=== PATIENT | male | born 1965 | race Caucasian/White ===

== ENCOUNTER 2019-09-30 20:00 | Outpatient (CLI) | payer OTHER, SELFPAY | END 2019-09-30 20:01 | disposition home or self-care (01) | LOC: SLEEP 10-01 09:41 | PROVIDERS: Family Provider Family Medicine; PCP Family Medicine; Visit Provider Family Medicine | DX: G47.33 Obstructive sleep apnea (adult) (pediatric) (principal) | CPT/HCPCS: 95810; 95811 ==

== ENCOUNTER 2019-10-16 21:03 | Inpatient (IN) | payer OTHER, SELFPAY ==
[2019-10-16 21:08] VITALS: BP 153/103; PULSE 73; RESP 22; TEMP 37.4; O2SAT 94; BMI 31.7
--- NOTE | 2019-10-16 21:11 | ED_ITS ---
Entered by Lita Sampson, acting as scribe for Wilmer Colin DO Oct 16, 2019 21:03 HPI - SOB/Dyspnea General: Chief Complaint: Shortness of Breath/Dyspnea Stated Complaint: syncope/sob Time Seen by Provider: 10/16/19 21:07 Source: patient Mode of arrival: ambulatory Limitations: no limitations History of Present Illness: HPI Narrative: 54 yo m came to the er by pov for sob and syncope episode. Onset was today. Pt states that he has not been breathing good and is unable to walk 15-20 ft w/o getting out of breath. MD elicited complaint: shortness of breath Onset (ago): day(s) (today) Timing: constant Severity: mild Associated symptoms: Reports fever(s) and syncope; Deny abdominal pain, dizziness, nausea or vomiting Related Data: Home oxygen amount: none Review of Systems Const: Reports: fever; Denies: chills Eyes: Denies: change in vision or blurry vision ENMT: Reports: post nasal drip; Denies: painful swallowing, swelling of lips/tongue, Change in hearing, nose bleeds or facial/sinus pain Card: Reports: syncope Resp: Reports: shortness of breath and non-productive cough; Denies: productive cough or wheezing GI: Denies: abdominal pain, nausea, vomiting, rectal pain, blood in stool or black tarry stool : Denies: difficulty urinating, painful urination, urinary frequency, urinary urgency or blood in urine Musc: Denies: redness or joint warmth Skin/Breast: Denies: rash, itching or redness Neuro: Denies: headache, dizziness, vertigo, confusion or seizure-like activity Psych: Denies: anxiety, visual hallucinations or auditory hallucinations PFSH ED PFSH: Statuses (acute, chronic, etc) shown below reflect problem list status as previously entered and may not be historically accurate Medical History (Updated 10/17/19 @ 00:42 by Claudy Herbert MD) Asthma (Acute) Chronic steroid use (Acute) Major depressive disorder (Acute) Polymyalgia rheumatica (Acute) Surgical History (Updated 10/17/19 @ 03:04 by Claudy Herbert MD) H/O hand surgery (Acute) H/O knee surgery (Acute) History of appendectomy (Acute) Family History (Updated 10/17/19 @ 00:43 by Claudy Herbert MD) Denies family history of Diabetes Clotting disorder Dementia Chronic kidney disease (CKD) Social History (Updated 10/17/19 @ 00:42 by Claudy Herbert MD) Smoking and tobacco status: never smoked Alcohol intake: never Substance/Drug Use: never Household members: family Physical Exam Const: GENERAL APPEARANCE: well developed ORIENTATION/CONSCIOUSNESS: Yes oriented to person, Yes oriented to place and Yes oriented to time HENMT: COMMON NORMALS: normocephalic, external ears normal and external nose normal HEAD & SCALP: normocephalic; no scalp tenderness FACE & SINUS: normal facial exam NOSE: external nose normal and no nasal discharge EXTERNAL EAR: Yes external ears normal MOUTH: tongue normal TEETH & GINGIVA: no abnormal tooth and associated gingiva THROAT: posterior oropharynx normal; no peritonsillar mass Eye: COMMON NORMALS: PERRL, EOMs intact bilaterally and conjunctivae normal EYELID: eyelids normal CONJUNCTIVA: Yes conjunctivae normal PUPIL: Yes PERRL Neck/C-Spine: COMMON NORMALS: full ROM GENERAL: No tracheal deviation CERVICAL SPINE: Yes normal cervical lordosis and No cervical spine tenderness Chest: COMMONS NORMALS: inspection of chest normal CHEST: No tenderness Resp: COMMON NORMALS: clear to auscultation bilaterally EFFORT & INSPECTION: Yes tachypneic, Yes respiratory distress, No retractions, No uses accessory muscles and No tracheal deviation AUSCULTATION: clear to auscultation bilaterally, no rhonchi, no wheezes and diminished lung sounds Cardio: COMMON NORMALS: regular rate and regular rhythm RATE: regular rate RHYTHM: regular rhythm HEART SOUNDS: no murmurs PERIPHERAL PULSES: radial pulses present GI: INSPECTION: No abdominal distension AUSCULTATION: No hyperactive bowel sounds and No hypoactive bowel sounds PALPATION: No guarding and No rigid PERCUSSION: no dullness to percussion and no tympanic to percussion : COMMON NORMALS: Yes no CVA tenderness BLADDER/KIDNEY EXAM: Yes no CVA tenderness Back/Pelvis: COMMON NORMALS: no CVA tenderness Neuro: SENSORIUM/ORIENTATION: Yes oriented to person, Yes oriented to place and Yes oriented to time Psych: COMMON NORMALS: mental status grossly normal Skin: COMMON NORMALS: no rashes or lesions noted GENERAL SKIN EXAM: no rashes or lesions noted Course ED course: 54-year-old male with significant shortness of breath. Has had a nonproductive cough. He has a temperature here. He has been increasingly short of breath, and has a hypoxic blood gas. Chest x-ray showed what appeared to be right middle lobe infiltrate. CTA shows bilateral perihilar infiltrates. His flu swabs are negative. His inflammatory markers are significantly elevated, which the patient says is usually the case given his history of PMR. He is oxygen dependent currently. He will be admitted for bilateral pneumonia. Consultations: Consultation #1: andrez Vital Signs: Vital signs: Vital Signs Temperature 98.8 F 10/17/19 01:54 Pulse Rate 67 10/17/19 03:20 Respiratory Rate 22 H 10/17/19 03:20 Blood Pressure 127/85 10/17/19 01:54 Pulse Oximetry 99 10/17/19 03:20 MDM - SOB/Dyspnea Lab Data: Labs: Lab Results 10/16/19 10/16/19 10/16/19 Range/Units 21:49 21:50 21:57 WBC 9.7 (4.0-10.0) 10^3/ uL RBC 4.32 (4.1-5.3) 10^6/u L Hgb 12.8 (11.7-16.6) g/dL Hct 39.2 L (42.0-52.0) % MCV 90.7 (80-94) fL MCH 29.6 (28.0-34.0) pg MCHC 32.7 (30.0-36.0) g/dL RDW 13.9 (12.1-15.1) % Plt Count 269 (130-400) 10^3/c mm MPV 9.6 (7.4-10.4) fL Neut % (Auto) 86.7 % Lymph % (Auto) 5.8 % Smith % (Auto) 5.6 % Eos % (Auto) 1.1 % Baso % (Auto) 0.2 % Neut # (Auto) 8.4 H (1.8-7.7) 10^3/u L Lymph # (Auto) 0.6 L (0.8-4.8) 10^3/u L Smith # (Auto) 0.5 (0.2-0.9) 10^3/u L Eos # (Auto) 0.1 (0.0-0.8) 10^3/u L Baso # (Auto) 0.0 (0.0-0.1) 10^3/u L Nucleated RBC % (a uto) 0 % Nucleated RBCs # 0.0 /100WBC ESR (0-10) mm/hr D-Dimer (0-0.59) ug/mIFE U Specimen Type Arterial Sample Site Radial, left ABG pH 7.49 H (7.35-7.45) ABG pCO2 36.6 (35-45) mmHg ABG pO2 57.8 L (80.0-100.0) mmH g ABG HCO3 27.8 H (22-26) mmol/L ABG Base Excess 4.4 H (-2.0-2.0) mmol/ L [place] Test Pos Hematocrit 41.9 L (42-52) % Hgb O2 Saturation 91.4 L (95-100) % Carboxyhemoglobin 1.0 (0.4-20.1) %THgb Methemoglobin 0.4 (0.4-1.5) % Total Hemoglobin 13.7 L (14-18) g/dL O2 Delivery Device None Account Development Manager ID [email or web address] Sodium (136-145) mmol/L Potassium (3.5-5.1) mmol/L Chloride (98-107) mmol/L Carbon Dioxide (22-29) mmol/L Anion Gap (5-19) BUN (6-20) mg/dL Creatinine (0.7-1.2) mg/dL GFR Calculation (90-130) mL/min Glucose (74-109) mg/dL Lactate (0.5-2.2) mmol/L Calcium (8.5-10.5) mg/dL Total Bilirubin (0.15-1.2) mg/dL AST (0-40) U/L ALT (0-41) U/L Alkaline Phosphata se (40-130) IU/L Creatine Kinase (39-308) U/L Troponin T Baselin e (0-15) ng/mL Troponin T 120 Min [place] (0-15) ng/mL Delta Troponin T (0-10) ABS# C-Reactive Protein (0.0-4.9) mg/L NT-Pro-B Natriuret Pep (0-125) pg/mL Total Protein (6.6-8.7) g/dL Albumin (3.5-5.2) g/dL Globulin (1.3-4.6) g/dL Influenza Type A A g Negative (Negative) POC Influenza B Ag Negative (Negative) 10/16/19 10/16/19 10/16/19 Range/Units 21:57 21:57 21:57 WBC (4.0-10.0) 10^3/ uL RBC (4.1-5.3) 10^6/u L Hgb (11.7-16.6) g/dL Hct (42.0-52.0) % MCV (80-94) fL MCH (28.0-34.0) pg MCHC (30.0-36.0) g/dL RDW (12.1-15.1) % Plt Count (130-400) 10^3/c mm MPV (7.4-10.4) fL Neut % (Auto) % Lymph % (Auto) % Smith % (Auto) % Eos % (Auto) % Baso % (Auto) % Neut # (Auto) (1.8-7.7) 10^3/u L Lymph # (Auto) (0.8-4.8) 10^3/u L Smith # (Auto) (0.2-0.9) 10^3/u L Eos # (Auto) (0.0-0.8) 10^3/u L Baso # (Auto) (0.0-0.1) 10^3/u L Nucleated RBC % (a uto) % Nucleated RBCs # /100WBC ESR (0-10) mm/hr D-Dimer 0.63 H (0-0.59) ug/mIFE U Specimen Type Sample Site ABG pH (7.35-7.45) ABG pCO2 (35-45) mmHg ABG pO2 (80.0-100.0) mmH g ABG HCO3 (22-26) mmol/L ABG Base Excess (-2.0-2.0) mmol/ L [place] Test Hematocrit (42-52) % Hgb O2 Saturation (95-100) % Carboxyhemoglobin (0.4-20.1) %THgb Methemoglobin (0.4-1.5) % Total Hemoglobin (14-18) g/dL O2 Delivery Device Account Development Manager ID Sodium 136 (136-145) mmol/L Potassium 4.3 (3.5-5.1) mmol/L Chloride 99 (98-107) mmol/L Carbon Dioxide 24 (22-29) mmol/L Anion Gap 17.3 (5-19) BUN 10 (6-20) mg/dL Creatinine 1.1 (0.7-1.2) mg/dL GFR Calculation 70.3 L (90-130) mL/min Glucose 108 (74-109) mg/dL Lactate 1.0 (0.5-2.2) mmol/L Calcium 9.6 (8.5-10.5) mg/dL Total Bilirubin 0.6 (0.15-1.2) mg/dL AST 18 (0-40) U/L ALT 22 (0-41) U/L Alkaline Phosphata se 31 L (40-130) IU/L Creatine Kinase 33 L (39-308) U/L Troponin T Baselin e (0-15) ng/mL Troponin T 120 Min [place] (0-15) ng/mL Delta Troponin T (0-10) ABS# C-Reactive Protein 41.4 H (0.0-4.9) mg/L NT-Pro-B Natriuret Pep 312 H (0-125) pg/mL Total Protein 6.3 L (6.6-8.7) g/dL Albumin 4.1 (3.5-5.2) g/dL Globulin 2.2 (1.3-4.6) g/dL Influenza Type A A g (Negative) POC Influenza B Ag (Negative) 10/16/19 10/16/19 10/16/19 Range/Units 21:57 21:57 23:40 WBC (4.0-10.0) 10^3/ uL RBC (4.1-5.3) 10^6/u L Hgb (11.7-16.6) g/dL Hct (42.0-52.0) % MCV (80-94) fL MCH (28.0-34.0) pg MCHC (30.0-36.0) g/dL RDW (12.1-15.1) % Plt Count (130-400) 10^3/c mm MPV (7.4-10.4) fL Neut % (Auto) % Lymph % (Auto) % Smith % (Auto) % Eos % (Auto) % Baso % (Auto) % Neut # (Auto) (1.8-7.7) 10^3/u L Lymph # (Auto) (0.8-4.8) 10^3/u L Smith # (Auto) (0.2-0.9) 10^3/u L Eos # (Auto) (0.0-0.8) 10^3/u L Baso # (Auto) (0.0-0.1) 10^3/u L Nucleated RBC % (a uto) % Nucleated RBCs # /100WBC ESR 24 H (0-10) mm/hr D-Dimer (0-0.59) ug/mIFE U Specimen Type Sample Site ABG pH (7.35-7.45) ABG pCO2 (35-45) mmHg ABG pO2 (80.0-100.0) mmH g ABG HCO3 (22-26) mmol/L ABG Base Excess (-2.0-2.0) mmol/ L [place] Test Hematocrit (42-52) % Hgb O2 Saturation (95-100) % Carboxyhemoglobin (0.4-20.1) %THgb Methemoglobin (0.4-1.5) % Total Hemoglobin (14-18) g/dL O2 Delivery Device Account Development Manager ID Sodium (136-145) mmol/L Potassium (3.5-5.1) mmol/L Chloride (98-107) mmol/L Carbon Dioxide (22-29) mmol/L Anion Gap (5-19) BUN (6-20) mg/dL Creatinine (0.7-1.2) mg/dL GFR Calculation (90-130) mL/min Glucose (74-109) mg/dL Lactate (0.5-2.2) mmol/L Calcium (8.5-10.5) mg/dL Total Bilirubin (0.15-1.2) mg/dL AST (0-40) U/L ALT (0-41) U/L Alkaline Phosphata se (40-130) IU/L Creatine Kinase (39-308) U/L Troponin T Baselin e 12 (0-15) ng/mL Troponin T 120 Min [place] 9.09 (0-15) ng/mL Delta Troponin T -2.91 L (0-10) ABS# C-Reactive Protein (0.0-4.9) mg/L NT-Pro-B Natriuret Pep (0-125) pg/mL Total Protein (6.6-8.7) g/dL Albumin (3.5-5.2) g/dL Globulin (1.3-4.6) g/dL Influenza Type A A g (Negative) POC Influenza B Ag (Negative) Imaging Data^: CXR: Radiologist's impression: [place] [address] XRay Report Signed Patient: Madi Lowe #: [id number] : 1965Acct#:[id number] Age/Sex: 54 / MADM Date: 10/16/19 Loc: [facility]/Bed: Attending Dr: Ordering Provider/Ordering MD: Wilmer Colin DO Date of Service: 10/16/19 Procedure(s): XR chest 1V portable [id number] Accession Number(s): [id number] Report Number: [id number] PROCEDURE INFORMATION: Exam: XR Chest, 1 View Exam date and time: 10/16/2019 9:40 PM Age: 54 years old Clinical indication: Shortness of breath; Additional info: SOB x 1 wk. Passed out today TECHNIQUE: Imaging protocol: XR of the chest Views: 1 view. COMPARISON: CR Chest 2 views* [id number] 08/17/2019 10:22 AM FINDINGS: Lungs: Unremarkable. No consolidation. Pleural space: Unremarkable. No pleural effusion. No pneumothorax. Heart/Mediastinum: Unremarkable. No cardiomegaly. Vasculature: There is some prominence of the ascending aorta seen possibly representing an uncoiling of the thoracic aorta. Bones/joints: Unremarkable. XR/XR chest 1V portable [id number] IMPRESSION: There are no acute chest findings. Dictated By:Anupam Monroe MD Signed By:Anupam Monroe MDSigned Date/Time:10/16/192250 DD/ 48 CTA Chest: Radiologist's impression: [place] [id number] CT Scan Report Signed Patient: Madi Lowe #: [id number] : 1965Acct#:[id number] Age/Sex: 54 / MADM Date: 10/16/19 Loc: [facility]/Bed: Attending Dr: Ordering Provider/Ordering MD: Wilmer Colin DO Date of Service: 10/16/19 Procedure(s): CT angio chest PE protcl [id number] Accession Number(s): [id number] Report Number: [id number] PROCEDURE INFORMATION: Exam: CT Angiography Chest With Contrast Exam date and time: 10/16/2019 10:33 PM Age: 54 years old Clinical indication: Dyspnea; Additional info: Chest pain TECHNIQUE: Imaging protocol: Computed tomographic angiography of the chest with intravenous contrast. 3D rendering: MIP and/or 3D reconstructed images were created by the technologist. Total DLP: 623.71 mGy-cm Radiation optimization: All CT scans at this facility use at least one of these dose optimization techniques: automated exposure control; mA and/or kV adjustment per patient size (includes targeted exams where dose is matched to clinical indication); or iterative reconstruction. Contrast material: OMNI 300; Contrast volume: 95 ml; Contrast route: IV; COMPARISON: CR (CHEST, ) 10/16/2019 10:05 PM FINDINGS: Pulmonary arteries: Normal. No pulmonary emboli. Aorta: Calcifications are seen within the aortic arch and descending thoracic aorta. Lungs: There are some patchy opacity seen in the left perihilar region as well as within the right middle lobe and possibly representing atelectasis. A patchy bilateral pneumonitis cannot be entirely excluded. Pleural space: Unremarkable. No pneumothorax. No pleural effusion. Heart: Unremarkable. No cardiomegaly. No pericardial effusion. Lymph nodes: Unremarkable. No enlarged lymph nodes. Bones/joints: Unremarkable. No acute fracture. Soft tissues: Unremarkable. CT/CT angio chest PE protcl [id number] IMPRESSION: 1. There is no evidence for pulmonary emboli. 2. Patchy opacity seen in the left perihilar region and right middle lobe, findings that could represent a patchy bilateral pneumonitis or atelectasis. Radiation Dose CTDIVOL = (mGy): DLP = 623.71 (mGy-cm) Dictated By:Anupam Monroe MD Signed By:Anupam Monroe MDSigned Date/Time:10/16/192320 DD/ 18 Discharge Plan Discharge Patient Disposition: Admitted As Inpatient Admit Provider: Claudy Herbert Discharge Date/Time: 10/17/19 01:40 Coding Level of Care Code ED Supplier Quality Engineer for Chg Fwd The documentation recorded by the Adrián chavez Stephanie Lyn, accurately reflects the service I personally performed and the decisions made by Cristi weiss Jeremy John, DO Oct 16, 2019 21:03
--- NOTE | 2019-10-16 21:19 | PC.NURSE ---
Performed EKG at 2116 and shown to ER doctor
--- NOTE | 2019-10-16 21:38 | ECG_ITS ---
Measurements Intervals [place] Rate: 73 P: 3 [place]: 154 QRS: 3 QRSD: 94 T: 46 QT: 377 QTc: 416 SINUS RHYTHM INCOMPLETE RIGHT BUNDLE BRANCH BLOCK [90+ ms QRS DURATION, TERMINAL R IN V1/V2, 40+ ms S IN I/aVL/V4/V5/V6] Compared to ECG 01/27/2019 11:13:14 Incomplete right bundle-branch block now present Electronically Signed On 10-17-2019 18:52:11 ENGINEER FISHING VESSEL by Claudy Lutz M.D. [email or web address]
--- NOTE | 2019-10-16 21:38 | XRR_ITS ---
PROCEDURE INFORMATION: Exam: XR Chest, 1 View Exam date and time: 10/16/2019 9:40 PM Age: 54 years old Clinical indication: Shortness of breath; Additional info: SOB x 1 wk. Passed out today TECHNIQUE: Imaging protocol: XR of the chest Views: 1 view. COMPARISON: CR Chest 2 views* [id number] 08/17/2019 10:22 AM FINDINGS: Lungs: Unremarkable. No consolidation. Pleural space: Unremarkable. No pleural effusion. No pneumothorax. Heart/Mediastinum: Unremarkable. No cardiomegaly. Vasculature: There is some prominence of the ascending aorta seen possibly representing an uncoiling of the thoracic aorta. Bones/joints: Unremarkable. XR/XR chest 1V portable [id number] IMPRESSION: There are no acute chest findings.
[2019-10-16 21:51] VITALS: PULSE 67; RESP 18; O2SAT 93
[2019-10-16] MEDS: ipratropium-albuterol 3 mL Neb INHALATION (21:51)
[2019-10-16] MEDS: metoprolol tartrate 50 mg Tablet 100 MG PO (21:52)
[2019-10-16 21:54] VITALS: PULSE 73; RESP 20; O2SAT 92
[2019-10-16 22:00] LABS: ABG PCO2 36.6 mmHg (35-45); ABG PH Result 7.49 (7.35-7.45); Arterial Blood Gas Hematocrit 41.9 % (42-52); Base Excess ABG 4.4 mmol/L (-2.0-2.0); Blood Gas Allen Test Pos; Blood Gas Sample Site Radial, left; Blood Gas Sample Type Arterial; HCO3 ABG 27.8 mmol/L (22-26); HGB O2 Sat 91.4 % (95-100); Methemoglobin 0.4 % (0.4-1.5); PO2 ABG 57.8 mmHg (80.0-100.0); Total Hemoglobin 13.7 g/dL (14-18)
[2019-10-16 22:07] LABS: Basophils % 0.2 %; Eosinophils # 0.1 10^3/uL (0.0-0.8); Eosinophils % 1.1 %; Hematocrit 39.2 % (42.0-52.0); Hemoglobin 12.8 g/dL (11.7-16.6); Lymphocytes # 0.6 10^3/uL (0.8-4.8); Lymphocytes % 5.8 %; Mean Corpuscular HGB Conc 32.7 g/dL (30.0-36.0); Mean Corpuscular Hemoglobin 29.6 pg (28.0-34.0); Mean Corpuscular Volume 90.7 fL (80-94); Mean Platelet Volume 9.6 fL (7.4-10.4); Monocytes # 0.5 10^3/uL (0.2-0.9); Monocytes % 5.6 %; Neutrophils # 8.4 10^3/uL (1.8-7.7); Neutrophils % 86.7 %; Nucleated Red Blood Cells % 0 %; Platelet Count 269 10^3/cmm (130-400); Red Blood Count 4.32 10^6/uL (4.1-5.3); Red Cell Distribution Width 13.9 % (12.1-15.1); White Blood Count 9.7 10^3/uL (4.0-10.0)
--- NOTE | 2019-10-16 22:17 | CTR_ITS ---
PROCEDURE INFORMATION: Exam: CT Angiography Chest With Contrast Exam date and time: 10/16/2019 10:33 PM Age: 54 years old Clinical indication: Dyspnea; Additional info: Chest pain TECHNIQUE: Imaging protocol: Computed tomographic angiography of the chest with intravenous contrast. 3D rendering: MIP and/or 3D reconstructed images were created by the technologist. Total DLP: 623.71 mGy-cm Radiation optimization: All CT scans at this facility use at least one of these dose optimization techniques: automated exposure control; mA and/or kV adjustment per patient size (includes targeted exams where dose is matched to clinical indication); or iterative reconstruction. Contrast material: OMNI 300; Contrast volume: 95 ml; Contrast route: IV; COMPARISON: CR (CHEST, ) 10/16/2019 10:05 PM FINDINGS: Pulmonary arteries: Normal. No pulmonary emboli. Aorta: Calcifications are seen within the aortic arch and descending thoracic aorta. Lungs: There are some patchy opacity seen in the left perihilar region as well as within the right middle lobe and possibly representing atelectasis. A patchy bilateral pneumonitis cannot be entirely excluded. Pleural space: Unremarkable. No pneumothorax. No pleural effusion. Heart: Unremarkable. No cardiomegaly. No pericardial effusion. Lymph nodes: Unremarkable. No enlarged lymph nodes. Bones/joints: Unremarkable. No acute fracture. Soft tissues: Unremarkable. CT/CT angio chest PE protcl [id number] IMPRESSION: 1. There is no evidence for pulmonary emboli. 2. Patchy opacity seen in the left perihilar region and right middle lobe, findings that could represent a patchy bilateral pneumonitis or atelectasis. Radiation Dose CTDIVOL = (mGy): DLP = 623.71 (mGy-cm)
[2019-10-16 22:20] LABS: D Dimer 0.63 ug/mIFEU (0-0.59)
[2019-10-16 22:22] LABS: Troponin(5th) Baseline 12 ng/mL (0-15)
[2019-10-16 22:29] LABS: Influenza A by IFA Negative (Negative); Influenza B by IFA Negative (Negative)
[2019-10-16 22:37] LABS: Alanine Aminotransferase 22 U/L (0-41); Albumin Level 4.1 g/dL (3.5-5.2); Alkaline Phosphatase 31 IU/L (40-130); Chloride 99 mmol/L (98-107); Potassium 4.3 mmol/L (3.5-5.1); Sodium 136 mmol/L (136-145)
[2019-10-16] MEDS: iohexol 350 mg/mL 100 mL Btl IV (22:40)
[2019-10-16 22:58] LABS: Erythrocyte Sedimentation Rate 24 mm/hr (0-10)
[2019-10-16 23:00] LABS: Anion Gap 17.3 (5-19); Aspartate Amino Transferase 18 U/L (0-40); Blood Urea Nitrogen 10 mg/dL (6-20); C Reactive Protein 41.4 mg/L (0.0-4.9); Calcium 9.6 mg/dL (8.5-10.5); Carbon Dioxide 24 mmol/L (22-29); Creatine Phosphokinase 33 U/L (39-308); Creatinine Clr Calc Pharmacy 90.4764; Globulin 2.2 g/dL (1.3-4.6); Glomerular Filtration Rate 70.3 mL/min (90-130); Glucose 108 mg/dL (74-109); NT Pro B Type Natriuretic Pept 312 pg/mL (0-125); Total Bilirubin 0.6 mg/dL (0.15-1.2); Total Protein 6.3 g/dL (6.6-8.7)
--- NOTE | 2019-10-16 23:38 | ECG_ITS ---
Measurements Intervals [place] Rate: 71 P: 5 [place]: 149 QRS: 17 QRSD: 96 T: 47 QT: 402 QTc: 440 SINUS RHYTHM POSSIBLE RIGHT VENTRICULAR CONDUCTION DELAY [RSR (QR) IN V1/V2] Compared to ECG 01/27/2019 11:13:14 No significant changes Electronically Signed On 10-17-2019 18:54:48 MANAGER HAIR by Claudy Lutz M.D. [id number]
[2019-10-17] VITALS (17 sets, daily range): BP systolic 105–133; BP diastolic 68–88; PULSE 54–111; RESP 15–27; TEMP 36.4–37.2; O2SAT 94–99
[2019-10-17 00:01] LABS: Troponin 5 2HR 9.09 ng/mL (0-15)
[2019-10-17 00:02] LABS: Troponin 5 2HR Delta -2.91 ABS# (0-10)
[2019-10-17] MEDS: cefTRIAXone 1,000 MG in sodium chloride 0.9% (plus) 50 ML 100 MG IV ×2 (00:15→23:27)
--- NOTE | 2019-10-17 00:32 | P.HP_ITS ---
Providers/Chief Complaint Primary Care Provider: Walker Sarabia MD Chief Complaint: PNEUMONIA, HYPOXIC RESPIRATORY FAILURE History of Present Illness Madi Lowe is a 54 year old male who carries diagnosis of severe obstructive sleep apnea, chronic steroid use 20 mg every day for polymyalgia rheumatica, came in with chief complaint of shortness of breath. Patient is stating that for last couple of months he has been experiencing shortness of breath on exertion and lately it has been happening at rest. He does not use oxygen at [facility], he does not carry any diagnosis of COPD or asthma, he is stating that he was admitted for a very complicated pneumonia in [place] but he is not sure whether it was bacterial or viral/fungal. He is saying 10 antimicrobials were administered. He is stating that he has been noticing yellow sputum with coughing for last couple of weeks he has not noticed any runny nose, runny eyes, nausea, vomiting, dysuria. He has noticed a low-grade fever 100.4 today and was not able to breathe at all while he was standing in the bathroom and passed out and fell on the floor at that time his called EMS. Diagnostics in the ER showed hypertension, hypoxia on room air, high d-dimer, CTA negative for PE but showed bilateral infiltrates he was started on Bactrim ceftriaxone and azithromycin, BiPAP was ordered for severe sleep apnea, high-dose steroids were ordered He was saturating well on 2 L nasal cannula by the time I interviewed him, he was eating sandwich with diet soda. Patient is stating that if he does not use his steroids his whole body hurts, he has blurry vision of right eye he has never been biopsied for temporal arteritis. He was started on 80 mg of prednisone and it has been cut down to 20 mg. Review of Systems Const: Reports: fever and body aches; Denies: chills Eyes: Reports: change in vision and blurry vision ENMT: Denies: throat pain or uvular edema Card: Denies: chest pain or palpitations Resp: Reports: shortness of breath GI: Denies: abdominal pain, nausea or vomiting : Denies: flank pain or difficulty urinating Musc: Denies: neck pain or back pain Skin/Breast: Denies: rash Neuro: Denies: headache Psych: Denies: anxiety or depression Endo: Denies: excessive urination Markus/Lymph: Reports: easy bruising All/Imm: Denies: hives Medications/Allergies Allergies Allergy/AdvReac Type Severity Reaction Status Date / Time No Known Allergies Allergy Verified 10/16/19 21:08 PFSH Acute PFSH: Statuses (acute, chronic, etc) shown below reflect problem list status as previously entered and may not be historically accurate Medical History (Updated 10/17/19 @ 00:42 by Claudy Herbert MD) Asthma (Acute) Chronic steroid use (Acute) Major depressive disorder (Acute) Polymyalgia rheumatica (Acute) Surgical History (Updated 10/17/19 @ 03:04 by Claudy Herbert MD) H/O hand surgery (Acute) H/O knee surgery (Acute) History of appendectomy (Acute) Family History (Updated 10/17/19 @ 00:43 by Claudy Herbert MD) Denies family history of Diabetes Clotting disorder Dementia Chronic kidney disease (CKD) Social History (Updated 10/17/19 @ 00:42 by Claudy Herbert MD) Smoking and tobacco status: never smoked Alcohol intake: never Substance/Drug Use: never Household members: family Vitals/I&O/Wt Last Vital Signs Temp 99.3 F 10/16/19 21:08 Pulse 73 10/16/19 21:54 Resp 20 H 10/16/19 21:54 BP 153/103 10/16/19 21:08 Pulse Ox 92 10/16/19 21:54 Weight last 48 hrs Weight 97.522 kg Physical Exam Narrative: EXAM NARRATIVE: Patient was eating his sandwich when I enter the room He had 3 L of supplemental oxygen, saturating 97% He had prolonged expiratory phase no audible wheezing, lung auscultation showed vesicular breathing without adventitious sounds, no active wheezing Neurologically nonfocal exam He has cushingoid appearance S1, S2 no JVD or signs of heart failure or edema No lower extremity edema ischemic gangrene or ulcers Abdomen soft, obese obesity, both are present Mood appropriate No sinus tenderness, EOMI, PERRLA Data : 10/16/19 21:57 10/16/19 21:57 Micro: Microbiology 10/16/19 21:57 Blood Culture - Preliminary Blood SPECIMEN COLLECTED 10/16/19 21:57 Blood Culture - Preliminary Blood SPECIMEN COLLECTED A&P Assessment and plan (1) Hypoxia: Status: Acute Code(s): R09.02 - Hypoxemia (2) Pneumonia: Status: Acute Code(s): J18.9 - Pneumonia, unspecified organism Additional A&P Information Acute hypoxic respiratory failure secondary to bilateral pneumonia Considering history of chronic steroid use he is immunocompromised, I would use Bactrim to cover PCP pneumonia with ceftriaxone and azithromycin, currently he is afebrile, no leukocytosis, Urine antigens, blood and sputum culture Currently doing well on 3 L nasal cannula Because of high AA gradient and hypoxia less than 60 I would use high-dose prednisone CTA chest did not show PE Polymyalgia rheumatica I would use higher dose of steroids currently he is on 20 mg, inpatient I would use 40 mg for at least 5 to 6 days Patient has blurry vision, he has not received any temporal artery biopsies yet but he was started on high-dose steroids and currently is on 20 mg at home I told him we have occupational health rn here who could help him to adjust his steroids and get temporal artery biopsy Severe obstructive sleep apnea Patient has not received his AVAPs at home I would use BiPAP higher settings on MedSurg floor He does not have any upper airway secretions, DVT prophylaxis: Lovenox GI prophylaxis: Protonix 40 mg daily Full code Attestations Medical Necessity Statement*: Anticipating history to cross more than 2 midnights because of acute hypoxic respiratory failure at risk of developing ARDS because of immunocompromise state Time Spent in Patient Care: 50 Coding Level of Care Code Acute Narrative Writer for Salvador Obregon Diagnoses Hypoxia R09.02 Pneumonia J18.9
[2019-10-17] MEDS: sulfamethoxazole-trimeth DS 160-800 mg Tablet 1 TAB PO ×3 (02:05→18:43)
[2019-10-17] MEDS: enoxaparin 40 mg/0.4 mL Syringe SUBCUT (02:05)
--- NOTE | 2019-10-17 03:22 | PC.RESP ---
pt stated he did not want tx at this time. pt stated he had a breathing tx in the er and did not feel like it helped at all. pt stated the bipap would help with his sob and would call for a tx if he thinks he needs one. no respiratory distress noted at this time
--- NOTE | 2019-10-17 03:38 | ECG_ITS ---
Measurements Intervals [place] Rate: 69 P: 1 ME: 160 QRS: 0 QRSD: 96 T: 44 QT: 409 QTc: 438 SINUS RHYTHM POSSIBLE RIGHT VENTRICULAR CONDUCTION DELAY [RSR (QR) IN V1/V2] Compared to ECG 01/27/2019 11:13:14 No significant changes Electronically Signed On 10-17-2019 18:54:55 BRAND COMMUNICATIONS MANAGER by lCaudy Lutz M.D. [email or web address]
[2019-10-17 04:12] LABS: Procalcitonin 0.08 ng/mL (0-0.5)
[2019-10-17 04:37] LABS: Basophils % 0.1 %; Hematocrit 40.2 % (42.0-52.0); Hemoglobin 12.9 g/dL (11.7-16.6); Lymphocytes # 0.6 10^3/uL (0.8-4.8); Lymphocytes % 8.1 %; Mean Corpuscular HGB Conc 32.1 g/dL (30.0-36.0); Mean Corpuscular Hemoglobin 30.4 pg (28.0-34.0); Mean Corpuscular Volume 94.6 fL (80-94); Mean Platelet Volume 10.1 fL (7.4-10.4); Monocytes # 0.6 10^3/uL (0.2-0.9); Monocytes % 7.8 %; Neutrophils # 6.5 10^3/uL (1.8-7.7); Neutrophils % 83.5 %; Nucleated Red Blood Cells % 0 %; Platelet Count 273 10^3/cmm (130-400); Red Blood Count 4.25 10^6/uL (4.1-5.3); White Blood Count 7.8 10^3/uL (4.0-10.0)
[2019-10-17 04:59] LABS: Alanine Aminotransferase 21 U/L (0-41); Alkaline Phosphatase 30 IU/L (40-130); Anion Gap 18.8 (5-19); Aspartate Amino Transferase 16 U/L (0-40); Blood Urea Nitrogen 11 mg/dL (6-20); Calcium 9.9 mg/dL (8.5-10.5); Carbon Dioxide 24 mmol/L (22-29); Chloride 98 mmol/L (98-107); Globulin 2.2 g/dL (1.3-4.6); Glomerular Filtration Rate 63.6 mL/min (90-130); Glucose 129 mg/dL (74-109); Potassium 4.8 mmol/L (3.5-5.1); Sodium 136 mmol/L (136-145); Total Bilirubin 0.4 mg/dL (0.15-1.2); Total Protein 6.2 g/dL (6.6-8.7)
[2019-10-17 05:03] LABS: Troponin 5 6HR 9.27 ng/L (0-15)
[2019-10-17 05:06] LABS: Troponin 5 6HR Delta -2.73 ng/L (0-12)
[2019-10-17 06:11] LABS: Add Urine Microscopic? NO
[2019-10-17 06:14] LABS: Bilirubin Urine Neg (NEGATIVE); Blood Urine Neg (Negative); Glucose Urine UA Norm (Normal); Ketones Urine Negative (Negative); Leukocyte Esterase Urine Negative (Negative); Nitrate Urine Negative (Negative); Protein Urine Neg (Negative); Urine Appearance Clear (CLEAR); Urine Color Yellow (Yellow); Urobilinogen Urine Norm (Negative); pH Urine 7 (5-7)
[2019-10-17] MEDS: ipratropium-albuterol 3 mL Neb INHALATION ×3 (07:25→19:50)
[2019-10-17 07:46] LABS: Lactate Dehydrogenase 237 U/L (135-225)
--- NOTE | 2019-10-17 09:22 | P.PN_ITS ---
Subjective Subjective: Interval history: Patient seen to be doing little bit better today. Little less shortness of breath. No fevers or chills. No significant sputum. Vitals/I&O/Wt Last Vital Signs Temp 98.5 F 10/17/19 09:18 Pulse 66 10/17/19 09:18 Resp 17 10/17/19 09:18 BP 127/88 10/17/19 09:18 Pulse Ox 95 10/17/19 09:18 10/16/19 10/17/19 10/17/19 22:59 06:59 14:59 Intake Total 60 / 60 Balance 60 / 60 Weight last 48 hrs Weight 215 lb Physical Exam 2 Narrative: EXAM NARRATIVE: General: No acute distress, Alert. Well nourished. Heart: Regular rate and rhythm. No murmurs, rubs or gallops. Normal capillary refill. Lungs: Clear to auscultation. No wheezes, rhonchi or rales. Abdomen: Positive bowel sounds. Non-tender, non-distended. No hepatosplenomegaly. No gaurding. Extremities: No clubbing, cyanosis, or edema. Negative Nahid's Data : 10/17/19 03:57 10/17/19 03:57 Micro: Microbiology 10/17/19 05:50 Legionella Urinary Antigen - Final Urine,Voided Bacterial Antigens - Final 10/16/19 21:57 Blood Culture - Preliminary Blood SPECIMEN COLLECTED 10/16/19 21:57 Blood Culture - Preliminary Blood SPECIMEN COLLECTED A&P Assessment and plan (1) Pneumonia: Continue with IV antibiotics. Start incentive spirometry and flutter valve. \Respiratory therapy to assess and treat Status: Acute Code(s): J18.9 - Pneumonia, unspecified organism (2) Hypoxia: Status: Acute Code(s): R09.02 - Hypoxemia (3) Hypertension: Status: Acute Code(s): I10 - Essential (primary) hypertension (4) GERD (gastroesophageal reflux disease): Status: Acute Code(s): K21.9 - Gastro-esophageal reflux disease without esophagitis (5) Polymyalgia rheumatica: Status: Acute Code(s): M35.3 - Polymyalgia rheumatica (6) Sleep apnea: Status: Acute Code(s): G47.30 - Sleep apnea, unspecified Attestations Medical Necessity Statement*: 54-year-old gentleman with pneumonia requiring continued inpatient therapy with IV treatments. Coding Level of Care Code Acute Veterinary Anatomist for g Fwd Diagnoses Pneumonia J18.9 Hypoxia R09.02 Hypertension I10 GERD (gastroesophageal reflux disease) K21.9 Polymyalgia rheumatica M35.3 Sleep apnea G47.30
[2019-10-17] MEDS: predniSONE 20 mg Tablet 40 MG PO (09:26)
[2019-10-17] MEDS: azithromycin 250 mg Tablet 500 MG PO (09:26)
--- NOTE | 2019-10-17 12:24 | PC.CHAP ---
Pastoral Care Encounter/Spiritual Assessment Type of Contact [] Declined cathead operator visit [] Patient/Family/Request visit [] Outpatient visit [] Follow-up visit [] Physician referral [] Code/Alert [] Routine visit [] Staff referral [] Actively dying [x] Patient sleeping [] Family support [] [] Out of room [] Palliative care [] [] Receiving care in room [] Pre-surgical visit [] Trauma [] Long length of stay [] ICU visit [] Other: Relational/Emotional Strength [] Patient feels connected with others/family/visitors/staff [] Distress [] Loneliness/isolation [] Abandonment Spirituality of Patient [] Person of Carlee [] Attends Jain of their Carlee [] Believes in Prayer [] Reads Bible or Scientology materials [] There are Spiritual issues to be addressed Retinal Surgeon Interventions [] Prayer [] Active listening [] Non-anxious presence [] Spiritual/emotional support [] Crisis/trauma care [] Spiritual counseling [] Bereavement support [] Provided bereavement packet [] Provided Bible/devotional materials [] Provided toy/stuffed animal, coloring book to patient or family member [] Completed spiritual assessment [] Provided Communion [] Anointing/[place] [] Salvation [] Other: Impact on Illness or Injury [] Angry [] Fearful [] Anxious [] Often cries [] Exhaustion [] Unable to work [] Unable to attend yazidism [] Unable to walk/stand [] Unable to read [] Unable to drive [] Unable to eat/drink [] Unable to sleep [] Unable to be with family [] Other: Summary Follow up needed. Time spent with patient
[2019-10-17] MEDS: metoprolol tartrate 50 mg Tablet 100 MG PO (21:14)
[2019-10-18] VITALS (12 sets, daily range): BP systolic 107–145; BP diastolic 68–96; PULSE 61–98; RESP 12–24; TEMP 36.5–37.1; O2SAT 94–99
[2019-10-18] MEDS: enoxaparin 40 mg/0.4 mL Syringe SUBCUT (01:37)
[2019-10-18] MEDS: pantoprazole DR 40 mg Tablet PO (05:57)
[2019-10-18] MEDS: losartan 50 mg Tablet PO (05:57)
[2019-10-18] MEDS: citalopram 20 mg Tablet PO (05:58)
[2019-10-18 06:08] LABS: Basophils % 0.1 %; Eosinophils # 0.1 10^3/uL (0.0-0.8); Eosinophils % 0.8 %; Hematocrit 38.5 % (42.0-52.0); Hemoglobin 12.2 g/dL (11.7-16.6); Lymphocytes # 1.1 10^3/uL (0.8-4.8); Lymphocytes % 14.5 %; Mean Corpuscular HGB Conc 31.7 g/dL (30.0-36.0); Mean Corpuscular Hemoglobin 29.3 pg (28.0-34.0); Mean Corpuscular Volume 92.3 fL (80-94); Monocytes # 0.8 10^3/uL (0.2-0.9); Monocytes % 10.4 %; Neutrophils # 5.7 10^3/uL (1.8-7.7); Neutrophils % 73.7 %; Nucleated Red Blood Cells % 0 %; Platelet Count 269 10^3/cmm (130-400); Red Blood Count 4.17 10^6/uL (4.1-5.3); White Blood Count 7.7 10^3/uL (4.0-10.0)
[2019-10-18 06:23] LABS: Alanine Aminotransferase 18 U/L (0-41); Albumin Level 3.6 g/dL (3.5-5.2); Alkaline Phosphatase 28 IU/L (40-130); Anion Gap 16.1 (5-19); Aspartate Amino Transferase 12 U/L (0-40); Blood Urea Nitrogen 17 mg/dL (6-20); Calcium 9.6 mg/dL (8.5-10.5); Carbon Dioxide 25 mmol/L (22-29); Chloride 101 mmol/L (98-107); Globulin 2.6 g/dL (1.3-4.6); Glomerular Filtration Rate 49.1 mL/min (90-130); Glucose 104 mg/dL (74-109); Potassium 4.1 mmol/L (3.5-5.1); Sodium 138 mmol/L (136-145); Total Bilirubin 0.2 mg/dL (0.15-1.2); Total Protein 6.2 g/dL (6.6-8.7)
--- NOTE | 2019-10-18 08:05 | P.PN_ITS ---
Subjective Subjective: Interval history: The patient states that he has been having some shortness of breath still and without the BiPAP, he is having difficulty with breathing. He had been short of breath at home which is what brought him into the hospital. He said that this had been going on for the last few weeks especially, however it has been going on for a few months or more. He is noted that he had chest pains with his worst episodes of dyspnea at home. Currently he does not have any chest pain. He would like to see a tangled yarn worker if possible. Vitals/I&O/Wt Last Vital Signs Temp 98.1 F 10/18/19 08:00 Pulse 72 10/18/19 08:00 Resp 18 10/18/19 08:00 BP 127/75 10/18/19 08:00 Pulse Ox 94 10/18/19 08:00 10/17/19 10/18/19 10/18/19 22:59 06:59 14:59 Intake Total 1040 / 1280 Balance 1040 / 1280 Weight last 48 hrs Weight 97.522 kg Physical Exam Narrative: EXAM NARRATIVE: General: Alert and oriented x3 with mild dyspnea at rest Mouth: Mild erythematous lesions in the oral mucosa. No definitive ulcerations concerning for thrush at this point. Cardiac: Regular rate and rhythm without murmurs Lungs: Mild wheezing/tightness, no crackles or rhonchi appreciated Abdomen: Soft, nontender without hepatosplenomegaly noted Extremities: No edema Data : 10/18/19 04:57 10/18/19 04:57 Micro: Microbiology 10/16/19 21:57 Blood Culture - Preliminary Blood NEGATIVE TO DATE 10/16/19 21:57 Blood Culture - Preliminary Blood NEGATIVE TO DATE 10/17/19 05:50 Legionella Urinary Antigen - Final Urine,Voided Bacterial Antigens - Final A&P Additional A&P Information 1. Acute hypoxic respiratory failure secondary to bilateral pneumonia -the patient is currently on Rocephin, azithromycin and Bactrim. Clinically he is now afebrile. He did have a fever prior to admission. He does not have leukocytosis. He continues to feel significantly dyspneic. I will get an ABG to see if his oxygen levels are improving. If not, I will have pulmonology see the patient. The underlying cause is suspected to be bilateral pneumonia, however I am concerned there may be another underlying issue. 2. Acute renal insufficiency -the cause of this is unclear. We will continue to follow. Adjust azithromycin dose to 250 mg once a day. 3. Polymyalgia rheumatica -the patient has a diagnosis of polymyalgia rheumatica and has had significant muscle pains especially when he is off the steroids, however with the steroids at 20 mg, he has done well. The diagnosis is still potentially in question. 4. Severe obstructive sleep apnea -the patient is currently using a BiPAP for sleep. We will have him continue with this and follow-up for need of BiPAP during the day. 5. Chest pain -the patient has chest pains and we will get an echocardiogram due to this. The patient had a negative cardiac stress test on September 13, 2019. 6. Prophylaxis -Lovenox Attestations Medical Necessity Statement*: Patient will be here for greater than 2 midni ghts due to treatment of bilateral pneumonia. Coding Level of Care Code Acute Marketing Consultant for Salvador Obregon
--- NOTE | 2019-10-18 08:06 | USCV_ITS ---
Madi Lowe Age: 54 Gender: M : 1965 Exam Date: 10/18/2019 09:32 Ordering Phys: Walker Sarabia MD Technologist: Jose De Jesus Boucher [place] [facility] [place]: CHEST PAIN BP: 134 / 74 HR: 64 Rhythm: Sinus Technical Quality: Suboptimal MEASUREMENTS (Male / Female) Normal Values 2D ECHO LV Diastolic Diameter PLAX 3.8 cm 4.2 - 5.9 / 3.9 - 5.3 cm LV Systolic Diameter PLAX 2.5 cm IVS Diastolic Thickness 0.9 cm 0.6 - 1.0 / 0.6 - 0.9 cm IVS Systolic Thickness 1.3 cm LVPW Diastolic Thickness 0.9 cm 0.6 - 1.0 / 0.6 - 0.9 cm LVPW Systolic Thickness 1.2 cm LVOT Diameter 2.1 cm LV Ejection Fraction 2D Teich 62.3 % LV Ejection Fraction MOD 2C 75.7 % LV Ejection Fraction 2C AL 75.5 % LA Diameter 4.8 cm LA Width 3.6 cm LA Height 5.5 cm RA Width 3.3 cm RA Height 4.7 cm Aorta at Sinotubular Diameter 3.5 cm M-MODE LV Diastolic Diameter MM 4.5 cm 4.2 - 5.9 / 3.9 - 5.3 cm LV Systolic Diameter MM 2.9 cm LV Ejection Fraction MM Teich 65.6 % IVS Diastolic Thickness MM 1.1 cm 0.6 - 1.0 / 0.6 - 0.9 cm IVS Systolic Thickness MM 1.5 cm LVPW Diastolic Thickness MM 1.1 cm 0.6 - 1.0 / 0.6 - 0.9 cm LVPW Systolic Thickness MM 1.6 cm RV Diastolic Diameter MM 1.6 cm Aortic Annulus Diameter 4.3 cm LA Ao Ratio MM 1.1 MV E Point Septal Separation 1.3 cm DOPPLER AV Peak Velocity 114.0 cm/s LVOT Peak Velocity 80.0 cm/s AV Area Cont Eq vti 2.4 cm squared AV Area Cont Eq pk 2.3 cm squared MV Area PHT 5.0 cm squared Mitral E to A Ratio 1.0 MV E' Velocity 8.0 cm/s Mitral E to MV E' Ratio 8.7 Mitral E to LV E' Lateral Ratio 7.2 Mitral E to LV E' Septal Ratio 10.8 TR Peak Velocity 151.0 cm/s TR Peak Gradient 9.1 mmHg Right Atrial Pressure 3.0 mmHg Pulmonary Artery Systolic Pressu 12.1 mmHg FINDINGS Left Ventricle The ventricles not well seen.normal left ventricular size, systolic function and wall thickness, with no regional wall motion abnormalities. Grade I/IV diastolic dysfunction (abnormal relaxation filling pattern), normal to mildly elevated filling pressures. Left ventricular ejection fraction is estimated at 60 %. Right Ventricle Normal right ventricular size and systolic function. Normal right ventricular systolic pressure. Right Atrium The right atrium is normal in size. Left Atrium Mildly increased left atrial size. Mitral Valve Mitral valve not well visualized. Aortic Valve Aortic valve not well visualized. Tricuspid Valve Tricuspid valve not well visualized. Pulmonic Valve Pulmonic valve not well visualized. Pericardium Normal pericardium without effusion. Aorta Normal ascending aorta dimension. CONCLUSIONS The ventricles not well seen.normal left ventricular size, systolic function and wall thickness, with no regional wall motion abnormalities. Grade I/IV diastolic dysfunction (abnormal relaxation filling pattern), normal to mildly elevated filling pressures. Left ventricular ejection fraction is estimated at 60 %. Technically limited study. No significant valve abnormalities. There are no prior echocardiogram studies to compare. Dr. Felice Hughes MD (Electronically Signed) Final Date: 18 October 2019 17:33 S
[2019-10-18] MEDS: azithromycin 250 mg Tablet 500 MG PO (08:07)
[2019-10-18] MEDS: metoprolol tartrate 50 mg Tablet 100 MG PO ×2 (08:08→18:04)
[2019-10-18] MEDS: sulfamethoxazole-trimeth DS 160-800 mg Tablet 1 TAB PO ×2 (08:08→18:04)
[2019-10-18] MEDS: predniSONE 20 mg Tablet 40 MG PO (08:08)
--- NOTE | 2019-10-18 12:08 | PC.CHAP ---
Pastoral Care Encounter/Spiritual Assessment Type of Contact [] Declined skin carver visit [] Patient/Family/Request visit [] Outpatient visit [x] Follow-up visit [] Physician referral [] Code/Alert [] Routine visit [] Staff referral [] Actively dying [] Patient sleeping [] Family support [] [] Out of room [] Palliative care [] [] Receiving care in room [] Pre-surgical visit [] Trauma [] Long length of stay [] ICU visit [] Other: Relational/Emotional Strength [x] Patient feels connected with others/family/visitors/staff [] Distress [] Loneliness/isolation [] Abandonment Spirituality of Patient [x] Person of Carlee [x] Attends Pentecostalism of their [place] [x] Believes in Prayer [x] Reads Bible or Quaker materials [] There are Spiritual issues to be addressed Light Rail Transit Operator Interventions [x] Prayer [x] Active listening [x] Non-anxious presence [x] Spiritual/emotional support [] Crisis/trauma care [] Spiritual counseling [] Bereavement support [] Provided bereavement packet [] Provided Bible/devotional materials [] Provided toy/stuffed animal, coloring book to patient or family member [x] Completed spiritual assessment [] Provided Communion [] Anointing/[place] [] Salvation [] Other: Impact on Illness or Injury [] Angry [] Fearful [x] Anxious [] Often cries [] Exhaustion [] Unable to work [x] Unable to attend jehovah's witness [] Unable to walk/stand [] Unable to read [] Unable to drive [] Unable to eat/drink [] Unable to sleep [] Unable to be with family [] Other: temporary illness Summary Pt. a little frustrated at having to be in the hosppital because he wants to return to normalduties. jesi Bai for medical staff. Time spent with patient 15 min.
[2019-10-18] MEDS: cefTRIAXone 1,000 MG in sodium chloride 0.9% (plus) 50 ML 100 MG IV (23:54)
[2019-10-19] VITALS (13 sets, daily range): BP systolic 111–160; BP diastolic 74–91; PULSE 62–84; RESP 14–20; TEMP 36.4–37.1; O2SAT 93–100
[2019-10-19] MEDS: LORazepam 2 mg/mL INJ 1 mL 0.5 MG IVP (00:46)
[2019-10-19] MEDS: enoxaparin 40 mg/0.4 mL Syringe SUBCUT (01:53)
[2019-10-19] MEDS: losartan 50 mg Tablet PO (06:14)
[2019-10-19] MEDS: pantoprazole DR 40 mg Tablet PO (06:15)
[2019-10-19] MEDS: citalopram 20 mg Tablet PO (06:15)
[2019-10-19 06:29] LABS: Basophils % 0.2 %; Eosinophils % 0.4 %; Hematocrit 38.4 % (42.0-52.0); Hemoglobin 12.2 g/dL (11.7-16.6); Lymphocytes # 1.3 10^3/uL (0.8-4.8); Lymphocytes % 15.5 %; Mean Corpuscular HGB Conc 31.8 g/dL (30.0-36.0); Mean Corpuscular Hemoglobin 29.4 pg (28.0-34.0); Mean Corpuscular Volume 92.5 fL (80-94); Mean Platelet Volume 9.7 fL (7.4-10.4); Monocytes # 0.8 10^3/uL (0.2-0.9); Neutrophils # 6.2 10^3/uL (1.8-7.7); Neutrophils % 74.3 %; Nucleated Red Blood Cells % 0 %; Platelet Count 281 10^3/cmm (130-400); Red Blood Count 4.15 10^6/uL (4.1-5.3); Red Cell Distribution Width 14.1 % (12.1-15.1); White Blood Count 8.3 10^3/uL (4.0-10.0)
[2019-10-19 06:43] LABS: Alanine Aminotransferase 21 U/L (0-41); Albumin Level 3.7 g/dL (3.5-5.2); Alkaline Phosphatase 24 IU/L (40-130); Anion Gap 15.1 (5-19); Aspartate Amino Transferase 15 U/L (0-40); Blood Urea Nitrogen 18 mg/dL (6-20); Calcium 9.4 mg/dL (8.5-10.5); Carbon Dioxide 24 mmol/L (22-29); Chloride 100 mmol/L (98-107); Globulin 2.6 g/dL (1.3-4.6); Glucose 97 mg/dL (74-109); Magnesium 2.1 mg/dL (1.7-2.3); Phosphorus 4.5 mg/dL (2.5-4.5); Potassium 4.1 mmol/L (3.5-5.1); Sodium 135 mmol/L (136-145); Total Bilirubin 0.2 mg/dL (0.15-1.2); Total Protein 6.3 g/dL (6.6-8.7)
[2019-10-19] MEDS: ipratropium-albuterol 3 mL Neb INHALATION ×2 (07:51→19:07)
[2019-10-19 08:29] LABS: ABG PCO2 37.8 mmHg (35-45); ABG PH Result 7.39 (7.35-7.45); Arterial Blood Gas Hematocrit 40.9 % (42-52); Base Excess ABG -1.7 mmol/L (-2.0-2.0); Blood Gas Allen Test Pos; Blood Gas LPM 2.5 %; Blood Gas Operator Identificat glc; Blood Gas Sample Site Radial, left; Blood Gas Sample Type Arterial; Carboxyhemoglobin 0.2 %THgb (0.4-20.1); HGB O2 Sat 96.7 % (95-100); Ionized Calcium Level - ABG 1.2 mmol/L (1.1-1.4); Methemoglobin 0.7 % (0.4-1.5); Oxygen Device NC; Oxygen Saturation ABG 97.6; PO2 ABG 92.5 mmHg (80.0-100.0); Potassium Level - ABG 4.5 mmol/L (3.5-5.0); Total Hemoglobin 13.4 g/dL (14-18)
--- NOTE | 2019-10-19 08:42 | P.PN_ITS ---
Subjective Subjective: Interval history: The patient continues to have shortness of breath even with walking to the bathroom. He does not have any significant cough at this time. He has not noticed any improvement with current therapies. He denies any active chest pains at this time. Vitals/I&O/Wt Last Vital Signs Temp 98.7 F 10/19/19 07:39 Pulse 66 10/19/19 08:02 Resp 14 10/19/19 08:00 BP 119/78 10/19/19 07:39 Pulse Ox 98 10/19/19 08:00 10/18/19 10/19/19 10/19/19 22:59 06:59 14:59 Intake Total 360 / 720 900 / 1620 Output Total 200 / 200 250 / 450 Balance 160 / 520 650 / 1170 Physical Exam Narrative: EXAM NARRATIVE: General: Alert and oriented x3. Howe facies from steroid use. Cardiac: Regular rate and rhythm without murmurs Lungs: Clear to auscultation bilaterally. No wheezes, crackles or rhonchi. Noted shortness of breath at rest. Abdomen: Soft, nontender. Extremities: Trace edema in the bilateral lower extremities Data : 10/19/19 05:48 10/19/19 05:48 A&P Additional A&P Information 1. Acute hypoxic respiratory failure -the patient is currently on Rocephin, azithromycin and Bactrim for noted pneumonia in the bilateral lungs based on CT scan findings. Overall the findings are not significant upon review of the images. I spoke with Dr. Beltre who feels that his dyspnea may be related to diaphragmatic weakness from his polymyalgia rheumatica. He will plan to have pulmonary function testing done and evaluate to see if this could be the case. Appreciate his assistance with this patient. 2. Acute renal insufficiency -the cause of this is unclear. This is improving today. 3. Polymyalgia rheumatica -the patient has a diagnosis of polymyalgia rheumatica from the machine setter supervisor and has had significant muscle pains especially when he is off the steroids, however with the steroids at 20 mg, he has done well. The diagnosis is still potentially in question. 4. Severe obstructive sleep apnea -the patient is currently using a BiPAP for sleep. We will have him continue with this and follow-up for need of BiPAP du ring the day. 5. Chest pain -echocardiogram shows some mild increased pressures with diastolic filling. We will continue with treatment for obstructive sleep apnea. The patient currently denies any chest pains. 6. Prophylaxis -Lovenox Attestations Medical Necessity Statement*: The patient continues to need to be hospitalized as we work on figure out the cause of his dyspnea. His stay will cross 2 mid nights. Coding Level of Care Code Acute Heavy Equipment Rental Associate for Salvador Obregon
[2019-10-19] MEDS: sulfamethoxazole-trimeth DS 160-800 mg Tablet 1 TAB PO ×2 (08:44→17:29)
[2019-10-19] MEDS: azithromycin 250 mg Tablet PO (08:44)
[2019-10-19] MEDS: metoprolol tartrate 50 mg Tablet 100 MG PO ×2 (08:44→22:03)
[2019-10-19] MEDS: predniSONE 20 mg Tablet 40 MG PO (08:44)
[2019-10-19] MEDS: ondansetron 2 mg/ML SDV 2 mL 4 MG IVP (11:48)
--- NOTE | 2019-10-19 20:14 | PM.CONSULT ---
Providers/Reason For Consult Consulting Physican/Specialty*: Pulmonary critical care medicine Reason for Consult*: Severe shortness of breath Attending Physician: Walker Sarabia MD Primary Care Provider: Walker Sarabia MD History of Present Illness History of Present Illness Madi Lowe is a 54 year old male who presented to the hospital with fever, chills, cough with sputum production. The patient gives history of shaking chills with myalgia at the same time and the patient experienced the cough and some sputum production. He denies any rhinosinusitis, sore throat. The patient had not received flu vaccine this year. His flu antigen during admission was negative. Upon admission, the patient had a CT angiogram of his chest done which did not reveal any pulmonary embolism however there were minimal areas of groundglass opacity with some areas of tree-in-bud appearance to suggestive of bronchiolitis. Given the patient's history of chronic steroid use the patient was started on Bactrim and the steroid dose was increased from his baseline of 20. The patient was also given ceftriaxone and azithromycin for community-acquired pneumonia. The patient has been on BiPAP for a diagnosis of obstructive sleep apnea. The patient has somewhat of an interesting history. The patient was diagnosed with pneumonia for which he spent 5 days as inpatient [place] in 2012. The patient tells me that he was given 10 different antibiotics and 5 days which I find very unusual. Also a difficult pneumonia would result in a much longer duration of hospital admission not just 5 days. The patient following discharge had been seen by camouflage assembler and was told that he has 70% of his lung function and the rest of the function would never get back. Again, I find this to be a very unusual statement. The patient states that he has been short of breath since 2012. In November of last year, the patient had an episode when he was in profound muscle pain and could not move himself. The patient presented to the ER and was given steroid and the patient felt significantly better the next day. The patient has been on steroid since November of last year. He has gained 45 pounds according to him. He has also developed edmonds faces. The patient was evaluated by rotary slicing machine operator and was initially given a diagnosis of polymyalgia rheumatica however the patient tells me today that when he saw him last in August the rotary slicing machine operator told him that he does not have polymyalgia rheumatica and he is not sure what he has. Interestingly, the patient tells me that anytime his prednisone dose goes below 20 mg, he would suffer from profound weakness requiring ER admission. This is very inconsistent with any rheumatology condition that would exacerbate within days. The patient had never undergone any muscle biopsy. It appears that the patient had undergone significant diagnostic work-up including CSF analysis, serologic work-up for rheumatoid arthritis which has been negative. The patient was recently diagnosed with complex sleep apnea after he undergone a sleep study. And ASV was prescribed however the patient has not gotten that yet. The patient has been on BiPAP since he came to the hospital which is not the treatment for complex sleep apnea. The patient complains of chronic fatigue and weakness. Today, I had the patient off of oxygen and his oxygen saturation while resting was 94%. Then I took the patient to walk around the unit with me without any oxygen and the lowest his oxygen saturation got was 92%. In fact, when we came back to his room his oxygen saturation was 94% again. The patient however was visibly short of breath. The patient did give me history of significant acid reflux which would be consistent with his dilated esophagus on the CT scan of the chest and the lung infiltrates are possibly secondary to the same thing. Acid reflux could easily cause groundglass opacities and tree-in-bud appearance. Review of Systems Narrative: General: No fevers chills night sweats. He does complain of fatigue Skin: No rash HEENT: No nasal congestion, rhinitis, sinusitis, sneezing, hoarseness of voice. There is blurred vision in the right eye, no double vision, redness of the eye or visual loss. There is no oral ulcer, sore throat or dry mouth. Neck: There is no neck swelling, mass or swollen glands. Respiratory: Please see my HPI. Cardiovascular: No chest pain, but there is exertional shortness of breath.no orthopnea, proximal nocturnal dyspnea, palpitation or lower extremity edema. Gastrointestinal: No abdominal pain, nausea, vomiting, melena or there are symptoms suggestive of GERD. Musculoskeletal: No joint pain or swelling Neurological: Patient is awake alert and oriented x3, no paralysis, gross motor function is normal. Psychiatric: Anxiety Meds/Allergies Home Medications and Allergies Home Medications Medication Instructions Recorded Confirmed Type citalopram 20 mg PO QAM 10/17/19 10/17/19 History fluticasone propion-salmeterol 1 inh INHALATION BID 10/17/19 10/17/19 History [Advair Diskus] losartan 50 mg PO QAM 10/17/19 10/17/19 History methylprednisolone 20 mg PO QAM 10/17/19 10/17/19 History metoprolol tartrate 100 mg PO BID 10/17/19 10/17/19 History omeprazole magnesium [Prilosec] 40 mg PO QAM 10/17/19 10/17/19 History Allergies Allergy/AdvReac Type Severity Reaction Status Date / Time No Known Allergies Allergy Verified 10/16/19 21:08 Current Medications Current Medications Generic Name Dose Route Start Last Admin Trade Name Freq PRN Reason Stop Dose Admin Albuterol/Ipratropium 3 ml 10/17/19 01:54 10/19/19 19:07 Duoneb INHALATION 3 ml Q6H PRN Administration SHORTNESS OF BREATH Citalopram Hydrobromide 20 mg 10/18/19 06:00 10/19/19 06:15 Celexa PO 20 mg QAM TRE Administration Enoxaparin Sodium 40 mg 10/17/19 01:54 10/19/19 01:53 Lovenox SUBCUT 40 mg Q24H TRE Administration Losartan Potassium 50 mg 10/18/19 06:00 10/19/19 06:14 Cozaar PO 50 mg QAM TRE Administration Ondansetron HCl 4 mg 10/17/19 01:54 10/19/19 11:48 Zofran IVP 4 mg Q6H PRN Administration NAUSEA AND VOMITING Pantoprazole Sodium 40 mg 10/18/19 06:00 10/19/19 06:15 Protonix PO 40 mg QAM TRE Administration Fluticasone/Salmeterol 1 puff 10/17/19 18:00 10/19/19 19:14 Advair Diskus 250-50 INHALATION [address] Administration PFSH Acute PFSH: Statuses (acute, chronic, etc) shown below reflect problem list status as previously entered and may not be historically accurate Medical History Asthma (Acute) Chronic steroid use (Acute) Major depressive disorder (Acute) Polymyalgia rheumatica (Acute) Surgical History H/O hand surgery (Acute) H/O knee surgery (Acute) History of appendectomy (Acute) Family History Denies family history of Diabetes Clotting disorder Dementia Chronic kidney disease (CKD) Social History Smoking and tobacco status: never smoked Alcohol intake: never Substance/Drug Use: never Household members: family Vitals/I&O/Wt Last Vital Signs Temp 98.3 F 10/19/19 16:00 Pulse 80 10/19/19 19:11 Resp 18 10/19/19 19:05 BP 115/76 10/19/19 16:00 Pulse Ox 98 10/19/19 19:11 10/19/19 10/19/19 10/19/19 06:59 14:59 22:59 Intake Total 900 / 1620 480 / 480 460 / 940 Output Total 250 / 450 600 / 600 Balance 650 / 1170 480 / 480 -140 / 340 Physical Exam Narrative: EXAM NARRATIVE: General: Patient is awake alert and oriented, in no distress. Edmonds faces HEENT: Pupil bilateral symmetric, light and accommodation reflex present, extraocular muscle movement intact, no deformity of the nose Neck: No JVD, no cervical or supraclavicular lymphadenopathy. Respiratory: Inspection: No visible deformity of the chest wall, no scar, no mass lesion Palpation: Trachea is mildly deviated to the right, bilateral symmetric expansion, bilateral symmetric vocal fremitus present Percussion: Bilateral tympanic percussion note both anterior and posteriorly Auscultation: Bilateral clear to auscultation both anterior and posteriorly, no crackles wheezing or rhonchi Cardiovascular: Regular rate and rhythm, S1-S2 present, no murmur, no right ventricular heave, no peripheral edema. Abdomen: Soft, nontender, nondistended, positive bowel sound. No palpable organomegaly. Musculoskeletal: No obvious joint deformity, normal gait. Skin: No rash, no evidence of erythema nodosum or multiforme. Neuro: Mental status is normal, no gross cranial nerve deficit, normal motor and coordination. Data Micro: Micro: Microbiology 10/19/19 08:25 C.difficile Toxin B Gene (PCR) - Fin al Stool Imaging^: CTA Chest: My impression: CT of the chest did not reveal any pulmonary embolism. There are areas of groundglass opacities with tree-in-bud appearance which would be consistent with bronchiolitis. The patient does not have diffuse bilateral upper lobe predominant groundglass opacities which is usually seen in pneumocystis pneumonia. Other Data: Other data: I have reviewed all the data from the patient. There is some elevation in the creatinine which I believe is secondary to the Bactrim therapy. A&P Assessment and plan (1) Pneumonia: The patient is currently doing very well. Based on his radiology data, history of acid reflux and groundglass opacities with tree-in-bud appearance on the CT scan the patient most likely has aspiration pneumonia. The other differential would be a viral bronchiolitis. The patient is on 20 mg of prednisone at baseline. A second immunosuppressive medication is usually necessary before the patient is started on PCP prophylaxis. The patient CT scan appearance is inconsistent with pneumocystis pneumonia. The patient also does not have any significant hypoxia. The patient was able to ambulate significant distance without any desaturation. I am going to discontinue the Bactrim. We will switch the ceftriaxone and azithromycin to Levaquin which can be given orally and the patient can be discharged home on for 5 days. The patient is hemodynamically stable, not hypoxic and able to tolerate oral medications. The patient can be discharged home safely. Status: Acute Code(s): J18.9 - Pneumonia, unspecified organism (2) Shortness of breath: The patient complains of significant exertional shortness of breath. Given the patient's long standing history of prednisone use I wonder if the patient has steroid induced myopathy. The patient is going to need a complete pulmonary function test with maximal voluntary ventilation and maximal inspiratory and expiratory pressures. For the time being I will get the maximal inspiratory and expiratory pressures here. The patient told me that his symptoms get significantly worse when the prednisone dose is less than 20 mg which I find very unusual for any rheumatologic disease. Apparently, his symptoms started within 2 days. I have told him that he does not have any definitive rheumatologic diagnosis and he would need to follow-up with a rotary slicing machine operator. At the same time, if it does get worse with tapering of steroid I would like to obtain a muscle biopsy and look for evidence of any myopathy. Status: Acute Code(s): R06.02 - Shortness of breath (3) Complex sleep apnea syndrome: The patient has complex sleep apnea syndrome and BiPAP is not the therapy for that. For the time being, I am going to start the patient on APAP which will ensure adequate minute ventilation as well as provide mandatory breaths. The patient is going to get his ASV this week and I would recommend him using that. I am happy to see the patient as outpatient and take care of him. Status: Acute Code(s): G47.31 - Primary central sleep apnea Coding Level of Care Code Acute Route Rider Supervisor for [facility] Diagnoses Pneumonia J18.9 Shortness of breath R06.02 Complex sleep apnea syndrome G47.31
[2019-10-20] VITALS (10 sets, daily range): BP systolic 126–130; BP diastolic 79–88; PULSE 64–81; RESP 16–18; TEMP 36.8–36.9; O2SAT 93–95
[2019-10-20] MEDS: ipratropium-albuterol 3 mL Neb INHALATION ×2 (00:45→08:01)
[2019-10-20] MEDS: enoxaparin 40 mg/0.4 mL Syringe SUBCUT (01:26)
[2019-10-20] MEDS: LORazepam 0.5 mg Tablet 0.25 MG PO (02:42)
[2019-10-20] MEDS: metoprolol tartrate 50 mg Tablet 100 MG PO (05:39)
[2019-10-20] MEDS: pantoprazole DR 40 mg Tablet PO (05:40)
[2019-10-20] MEDS: levoFLOXacin 750 mg Tablet PO (05:40)
[2019-10-20] MEDS: losartan 50 mg Tablet PO (05:40)
[2019-10-20] MEDS: citalopram 20 mg Tablet PO (05:41)
--- NOTE | 2019-10-20 07:56 | P.DS_ITS ---
Discharge Providers Date of Admission: 10/17/19 00:38 Date of Discharge: 10/20/19 Attending Provider at Admission: Claudy Herbert MD Attending Provider at Discharge: Walker Sarabia MD Primary Care Provider: Walker Sarabia MD Diagnoses at Discharge Discharge Diagnosis (1) Pneumonia: Status: Acute (2) Shortness of breath: Status: Acute (3) Complex sleep apnea syndrome: Status: Acute Reason for Visit Reason for Visit: Reason For Visit: PNEUMONIA, HYPOXIC RESPIRATORY FAILURE Hospital Course Hospital Course: Patient was admitted with shortness of breath that has gradually been worsening over the last few months and found to have a bilateral pneumonia on CT scan. The patient noted a low-grade fever and had passed out in the bathroom at his home. The patient was admitted and started on Rocephin, azithromycin and Bactrim. He was given Bactrim for possible PCP treatment due to being on steroids long-term. The patient showed some signs of improvement and by the time of discharge his oxygen levels were in the low to mid 90s on room air. The patient continues to be dyspneic at rest and the underlying cause for this is unclear. Dr. Beltre evaluated the patient and would like to do further testing as an outpatient to see if this could be secondary to chronic steroid use, versus another underlying rheumatologic issue. At one point the patient was diagnosed with polymyalgia rheumatica, however this diagnosis is in question. I will refer the patient to Dr. Beltre as an outpatient as well as to rheumatology for further evaluation work-up. The patient will be discharged home on Levaquin and for now 20 mg of prednisone daily. This will likely be tapered off by rheumatology or pulmonology depending on their findings and plan of care. The possibility of steroid-induced myopathy could be present, however when I saw the patient on his first admission with significant muscle aches, he had not been on any steroids at that time and responded well to the commendation of doxycycline and prednisone. Appreciate consultation from Dr. Beltre for this patient. The patient is in agreement with discharge home at this time. Physical Exam Narrative: EXAM NARRATIVE: General: Alert oriented x3 Cardiac: Regular rate and rhythm without murmurs Lungs: Mildly decreased air entry bilaterally without any wheezes, crackles or rhonchi at this time Abdomen: Soft, nontender without noted hepatosplenomegaly. Extremities: No edema Discharge Data Data Completed and Pending: Completed Studies During Hospitalization Category Date Time Status CT angio chest PE protcl [id number] Urge nt Cat Scan 10/16/19 22:17 Completed XR chest 1V nicole ble [id number] Stat Exams 10/16/19 21:38 Completed CV echo complete* [id number] Routine Ultrasound 10/18/19 08:06 Completed Pending at discharge Category Date Time Status Blood Culture Sta t Lab 10/16/19 21:[address] at Lab 10/17/19 07:10 Uncollected Labs from last 24 hours 10/18/19 18:20 Specimen Type Arterial Sample Site Radial, left ABG pH 7.39 ABG pCO2 37.8 ABG pO2 92.5 ABG HCO3 23.0 ABG O2 Saturation 97.6 ABG Base Excess -1.7 [place] Test Pos A-a O2 Gradient 71.0 H Hematocrit 40.9 L Hgb O2 Saturation 96.7 Carboxyhemoglobin 0.2 L Methemoglobin 0.7 Total Hemoglobin 13.4 L Sodium 137.0 Potassium 4.5 Glucose 190.0 H Ionized Calcium 1.2 O2 Delivery Device Nc O2 Liters/Min 2.5 FiO2 30.0 Web Solutions Architect ID [email or web address] Vitals: Last Vital Signs Temp 98.3 F 10/20/19 04:00 Pulse 64 10/20/19 04:00 Resp 18 10/20/19 04:00 BP 130/79 10/20/19 05:40 Pulse Ox 93 10/20/19 04:00 Discharge Plan Discharge Patient Disposition: Home, Self-Care Condition: Stable Prescriptions: New levofloxacin 750 mg Tablet 750 mg PO DAILY@0600 5 Days Qty: 5 RF: 0 prednisone 20 mg Tablet 20 mg PO DAILY Qty: 30 RF: 0 Continued metoprolol tartrate 100 mg Tablet 100 mg PO BID RF: 0 losartan 50 mg Tablet 50 mg PO QAM RF: 0 Advair Diskus 250-50 mcg/dose Blister With Device 1 inh INHALATION BID RF: 0 citalopram 20 mg Tablet 20 mg PO QAM RF: 0 Prilosec 10 mg Susp,Delayed Release For Recon 40 mg PO QAM RF: 0 Discontinued methylprednisolone 4 mg Tablet 20 mg PO QAM RF: 0 Discharge Orders: Discharge Order (Routine); Ordered 10/20/19 Ordered By: Walker Sarabia Referrals: Ezio Brooks MD [Physician] - 7-10 days Juan José Beltre MD [Physician] - 7-10 days Walker Sarabia MD [Primary Care Provider] - 4-7 days Discharge Diet: Usual diet Discharge Activity: Increase activity as tolerated and Cpap/Bipap as instructed Activity Restrictions/Additional Instructions: If you have any problems getting your ASV machine, please contact [facility] for assistance. Discharge Attestations Time Spent in Discharge Care*: greater than 30 min Specific Discharge Activities: Specific discharge activities: educating patient and documenting/other paperwork Quality Metrics Clinical Quality Measures During this hospital stay, did patient experience: None Coding Level of Care Code Acute Ic Designer Gate Arrays for Chg Fwd Diagnoses Pneumonia J18.9 Shortness of breath R06.02 Complex sleep apnea syndrome G47.31
[2019-10-20] MEDS: predniSONE 20 mg Tablet PO (08:05)
== END 2019-10-20 10:45 | disposition home or self-care (01) | DRG 193 ==
LOC: ER 10-17 01:25 → MEDSURG 10-17 01:26
PROVIDERS: Family Medicine; Admitting Provider Internal Medicine; Emergency Provider Emergency Medicine; Family Provider Family Medicine; PCP Family Medicine; Visit Provider Family Medicine
DX: J18.9 Pneumonia, unspecified organism (principal); J96.01 Acute respiratory failure with hypoxia; N17.9 Acute kidney failure, unspecified; G47.33 Obstructive sleep apnea (adult) (pediatric); M35.3 Polymyalgia rheumatica; I10 Essential (primary) hypertension; E66.9 Obesity, unspecified; K21.9 Gastro-esophageal reflux disease without esophagitis; J45.909 Unspecified asthma, uncomplicated; Z79.52 Long term (current) use of systemic steroids
CPT/HCPCS: 12345; 36415; 36600; 71045; 71275; 80051; 80053; 81003; 82550; 82805; 82810; 83605; 83615; 83735; 83880; 83986; 84100; 84145; 84484; 85025; 85378; 85651; 86140; 86141; 86403; 87040; 87449; 87493; 87804; 93005; 93306; 94060; 94640; 94660; 96372; 96375; 99283; J0696; J1650; J2060; J2405; J7512; Q0144; Q9967

== ENCOUNTER 2019-12-09 11:26 | Emergency (ER) | payer OTHER, SELFPAY ==
[2019-12-09 11:41] VITALS: BP 161/111; PULSE 66; RESP 17; TEMP 36.7; O2SAT 96; BMI 34.0
--- NOTE | 2019-12-09 11:57 | ED_ITS ---
HPI - Weakness General: Chief complaint: Weakness Stated complaint: weak Time Seen by Provider: 12/09/19 11:44 Source: patient Mode of arrival: ambulatory Limitations: no limitations History of Present Illness: HPI Narrative: 54-year-old male states he has been having intermittent weakness for the last year. Patient states that he recently decreased his prednisone states he has been having increased weakness over the last 4 to 5 days. He states he is a joint pain along with this. Denies any worsening improving factors. Denies any fevers. He states this is like his previous episodes. Complaint: generalized weakness Onset (ago): day(s) Duration: constant Location: generalized Migration: none Severity: moderate Relieving factors: none Exacerbating factors: none Associated symptoms: Denies chest pain, chills, dysuria, easy bruising, fever(s), headache(s), nausea or vomiting Review of Systems Const: Denies: fever, chills, body aches or change in appetite Eyes: Denies: blurry vision or eye discomfort ENMT: Denies: throat pain or dental pain Card: Denies: chest pain Resp: Denies: shortness of breath GI: Denies: abdominal pain, nausea, vomiting or diarrhea : Denies: painful urination Musc: Reports: joint pain; Denies: neck pain or back pain Skin/Breast: Denies: rash Neuro: Reports: weakness in extremities; Denies: headache Psych: Denies: depression Markus/Lymph: Denies: easy bruising All/Imm: Denies: hives PFSH ED PFSH: Medical History Asthma Chronic steroid use Major depressive disorder Polymyalgia rheumatica Surgical History H/O hand surgery H/O knee surgery History of appendectomy History of nasal surgery Family History Father Lung disease Asthma Denies family history of Diabetes Clotting disorder Dementia Chronic kidney disease (CKD) Social History Smoking and tobacco status: never smoked Alcohol intake: never Lives independently: Yes Household members: spouse Marital status: Current occupational status: employed Current occupational exposures/hazards: Yes History of recent travel: No Current gender identity: Male Physical Exam Const: COMMON NORMALS: no apparent distress, oriented x3 and healthy appearing HENMT: COMMON NORMALS: normocephalic and head/scalp atraumatic HEAD & SCALP: normocephalic and atraumatic Eye: COMMON NORMALS: PERRL and EOMs intact bilaterally PUPIL: Yes PERRL Neck/C-Spine: COMMON NORMALS: full ROM and supple Chest: COMMONS NORMALS: inspection of chest normal and palpation of chest normal Resp: COMMON NORMALS: normal respiratory effort, no retractions, no use of accessory muscles and clear to auscultation bilaterally AUSCULTATION: clear to auscultation bilaterally Cardio: COMMON NORMALS: regular rate, regular rhythm and no murmurs RATE: regular rate RHYTHM: regular rhythm GI: COMMON NORMALS: normal to inspection, nondistended, normoactive bowel sounds, soft to palpation, non-tender and no masses PALPATION: Yes soft Extremity: COMMON NORMALS: normal to inspection and full ROM Neuro: COMMON NORMALS: oriented x3, moves all extremities and no focal motor deficits Psych: COMMON NORMALS: mental status grossly normal, thought process normal and cooperative THOUGHT PROCESS: normal thought process Skin: COMMON NORMALS: no rashes or lesions noted and no wounds GENERAL SKIN EXAM: no rashes or lesions noted Course Vital Signs: Vital signs: Vital Signs Temperature 98.0 F 12/09/19 11:41 Pulse Rate 66 12/09/19 11:41 Respiratory Rate 18 12/09/19 12:51 Blood Pressure 161/111 12/09/19 11:41 Pulse Oximetry 96 12/09/19 12:51 MDM - Weakness MDM Narrative: Medical decision making narrative: Patient presents with generalized weakness possibly from steroid use. Patient's lab work including CK here are normal. Patient's physician Dr. Beltre came and spoke to the patient and felt he is stable for discharge and will see him in his office. Patient feels improved and is stable for discharge. Lab Data: Labs: Lab Results 12/09/19 12/09/19 Range/Units 12:19 12:19 WBC 6.2 (4.0-10.0) 10^3/ uL RBC 4.02 L (4.1-5.3) 10^6/u L Hgb 11.7 (11.7-16.6) g/dL Hct 37.5 L (42.0-52.0) % MCV 93.3 (80-94) fL MCH 29.1 (28.0-34.0) pg MCHC 31.2 (30.0-36.0) g/dL RDW 13.5 (12.1-15.1) % Plt Count 336 (130-400) 10^3/c mm MPV 9.4 (7.4-10.4) fL Neut % (Auto) 63.6 % Lymph % (Auto) 21.4 % [place] % (Auto) 11.6 % Eos % (Auto) 2.3 % Baso % (Auto) 0.6 % Neut # (Auto) 4.0 (1.8-7.7) 10^3/u L Lymph # (Auto) 1.3 (0.8-4.8) 10^3/u L [place] # (Auto) 0.7 (0.2-0.9) 10^3/u L Eos # (Auto) 0.1 (0.0-0.8) 10^3/u L Baso # (Auto) 0.0 (0.0-0.1) 10^3/u L Nucleated RBC % (a uto) 0 % Nucleated RBCs # 0.0 /100WBC Sodium 140 (136-145) mmol/L Potassium 3.8 (3.5-5.1) mmol/L Chloride 105 (98-107) mmol/L Carbon Dioxide 28 (22-29) mmol/L Anion Gap 10.8 (5-19) BUN 11 (6-20) mg/dL Creatinine 0.9 (0.7-1.2) mg/dL GFR Calculation 88.6 L (90-130) mL/min Glucose 99 (65-115) mg/dL Calculated Osmolal ity 286 (285-295) mOsm/k g Calcium 8.8 (8.5-10.5) mg/dL Creatine Kinase 61 (39-308) U/L Discharge Plan Discharge Patient Disposition: Home, Self-Care Clinical Impression: Weakness Condition: Stable Prescriptions: No Action ergocalciferol (vitamin D2) 1,250 mcg (50,000 unit) capsule 1,250 mcg PO .weekly Qty: 30 RF: 1 metoprolol tartrate 100 mg Tablet 100 mg PO BID RF: 0 losartan 50 mg Tablet 50 mg PO QAM RF: 0 fluticasone propion-salmeterol [Advair Diskus] 250-50 mcg/dose Blister With Device 1 inh INHALATION BID RF: 0 citalopram 20 mg Tablet 20 mg PO QAM RF: 0 Prilosec 10 mg Susp,Delayed Release For Recon 40 mg PO QAM RF: 0 prednisone 20 mg Tablet 20 mg PO DAILY Qty: 30 RF: 0 albuterol sulfate 90 mcg/actuation Hfa Aerosol Inhaler 2 puff INHALATION 6XD PRN (Reason: Shortness Of Breath) RF: 0 Discharge Orders: Discharge Order (Routine); Ordered 12/09/19 Ordered By: Sorin Coello Referrals: Walker Sarabia MD [Primary Care Provider] - Discharge Diet: Advance as tolerated Discharge Activity: Resume usual activity Patient Instructions: Weakness (ED) Coding Level of Care Code ED Health Service Coordinator for Chg Fwd Exam Comprehensive
[2019-12-09] MEDS: sodium chloride 0.9% 1,000 ML 999 ML IV (12:19)
[2019-12-09 12:38] LABS: Basophils % 0.6 %; Eosinophils # 0.1 10^3/uL (0.0-0.8); Eosinophils % 2.3 %; Hematocrit 37.5 % (42.0-52.0); Hemoglobin 11.7 g/dL (11.7-16.6); Lymphocytes # 1.3 10^3/uL (0.8-4.8); Lymphocytes % 21.4 %; Mean Corpuscular HGB Conc 31.2 g/dL (30.0-36.0); Mean Corpuscular Hemoglobin 29.1 pg (28.0-34.0); Mean Corpuscular Volume 93.3 fL (80-94); Mean Platelet Volume 9.4 fL (7.4-10.4); Monocytes # 0.7 10^3/uL (0.2-0.9); Monocytes % 11.6 %; Neutrophils % 63.6 %; Nucleated Red Blood Cells % 0 %; Platelet Count 336 10^3/cmm (130-400); Red Blood Count 4.02 10^6/uL (4.1-5.3); Red Cell Distribution Width 13.5 % (12.1-15.1); White Blood Count 6.2 10^3/uL (4.0-10.0)
[2019-12-09 12:51] VITALS: RESP 18; O2SAT 96
[2019-12-09] MEDS: morphine 4 mg/mL SDV 1 mL IVP (12:51)
[2019-12-09 12:54] LABS: Anion Gap 10.8 (5-19); Blood Urea Nitrogen 11 mg/dL (6-20); Calcium 8.8 mg/dL (8.5-10.5); Carbon Dioxide 28 mmol/L (22-29); Chloride 105 mmol/L (98-107); Creatine Phosphokinase 61 U/L (39-308); Glomerular Filtration Rate 88.6 mL/min (90-130); Glucose 99 mg/dL (65-115); Osmolality Calculated 286 mOsm/kg (285-295); Potassium 3.8 mmol/L (3.5-5.1); Sodium 140 mmol/L (136-145)
[2019-12-09] MEDS: HYDROcodone-acetaminophen 7.5-325 mg Tablet 1 TAB PO (15:44)
[2019-12-09 15:51] VITALS: BP 162/104; PULSE 79; RESP 17; O2SAT 96
== END 2019-12-09 15:53 | disposition home or self-care (01) ==
PROVIDERS: Emergency Provider Emergency Medicine; Family Provider Family Medicine; PCP Family Medicine
DX: R53.1 Weakness (principal); J45.909 Unspecified asthma, uncomplicated; M35.3 Polymyalgia rheumatica; Z79.52 Long term (current) use of systemic steroids; Z79.51 Long term (current) use of inhaled steroids
CPT/HCPCS: 12345; 36415; 80048; 82550; 85025; 96361; 96374; 96375; 99282; 99283; J2270; J7030

== ENCOUNTER → 2020-01-10 15:51 | Outpatient (BNVA) | payer OTHER, SELFPAY | PROVIDERS: Family Provider Family Medicine; PCP Family Medicine; Visit Provider Internal Medicine Rheumatology | DX: M35.3 Polymyalgia rheumatica (principal); Z79.899 Other long term (current) drug therapy; Z79.52 Long term (current) use of systemic steroids | CPT/HCPCS: 99204 ==

== ENCOUNTER → 2020-01-11 09:30 | Outpatient (BNVA) | payer OTHER, SELFPAY | PROVIDERS: Family Provider Family Medicine; PCP Family Medicine; Visit Provider Internal Medicine Rheumatology | DX: Z79.899 Other long term (current) drug therapy (principal) | CPT/HCPCS: 36415; 80076; 82085; 82533; 82550; 84439; 84443; 85651; 86140; 86480 ==

== ENCOUNTER 2020-01-26 11:08 | Day surgery (SDC) | payer OTHER, SELFPAY ==
[2020-01-25 13:45] VITALS: BMI 33.2
[2020-01-26] VITALS (13 sets, daily range): BP systolic 119–166; BP diastolic 77–99; PULSE 57–70; RESP 16–20; TEMP 36.4–37; O2SAT 90–100
--- NOTE | 2020-01-26 11:41 | ANES.PREANE2 ---
Pre-Anesthetic Assessment Pre-Anesthetic Assessment: Height/Weight: Height 1.75 m Weight 102.058 kg Temp Pulse Resp BP Pulse Ox 97.6 F 66 18 146/99 92 01/26/20 11:19 01/26/20 11:19 01/26/20 11:19 01/26/20 11:19 01/26/20 11:19 Preop Diagnosis: Incarcerated umbilical hernia Proposed Procedure: Operation Date: 01/26/20 12:25 Proposed Procedures p Umbilical Hernia Repair w/ Mesh 94984 K42.0(Not Applicable) - Alfred Lemus MD Familial anesthetic complications: None Was Beta Rafa taken within 24 hours: Yes Last intake: Intake Last Liquid Date 01/25/20 Last Liquid Time 20:30 Last Solid Date 01/25/20 Last Solid Time 20:30 Social: Social History: No alcohol and No tobacco Exam: Pre-Anes Outpt Exam: alert, oriented x 3, clear to auscultation bilaterally and regular rate & rhythm Airway: Cervical ROM: WNL MP: 2 Dentition: False Additional comments: dentures Pulmonary: Pulmonary: SOB Comments: hx pneumonia in september, admitted to hospital for 4 days CV/HEM: CV/HEM: HTN and None reported : : None reported Hepatic: Hepatic: None reported GI: GI: GERD Metabolic: Metabolic: Morbid obesity Musc/skel: Musc/skel: None reported Neuropsych: Neuropsych: None reported Anesthetic Plan: ASA status: 2 Anesthesia: General Risk of > 500 ml blood loss (7ml/kg in children): No PFSH Anesthesia PFSH: Social History Smoking and tobacco status: never smoked Alcohol intake: never Lives independently: Yes Household members: spouse Marital status: Current occupational status: employed Current occupational exposures/hazards: Yes History of recent travel: No Current gender identity: Male Data Anesthesia Cardiac Studies: No Data to Display
--- NOTE | 2020-01-26 12:12 | W.PM.OPSFHP ---
Same Day Surgery H&P Indication for Procedure/HPI DATE OF PROCEDURE: January 26, 2020 CHIEF COMPLAINT/INDICATIONFOR SURGICAL PROCEDURE: umbilical hernia PREOP DIAGNOSIS: Incarcerated umbilical hernia PLANNED PROCEDRUE: Operation Date: 01/26/20 12:25 Proposed Procedures p Umbilical Hernia Repair w/ Mesh 77291 K42.0(Not Applicable) - Alfred Lemus MD Medications/Allergies* Home Medications Medication Instructions Recorded Confirmed Type Prilosec 40 mg PO QAM 10/17/19 01/26/20 History citalopram 20 mg PO QAM 10/17/19 01/26/20 History metoprolol tartrate 100 mg PO BID 10/17/19 01/26/20 History albuterol sulfate 2 puff INHALATION 6XD PRN 12/09/19 01/26/20 History losartan 50 mg tablet 100 mg PO QAM tab 01/10/20 01/26/20 History Allergies/Adverse Reactions Allergy/AdvReac Type Severity Reaction Status Date / Time No Known Allergies Allergy Verified 01/10/20 16:08 Pertinent History/Comorbid Conditions* Medical History (Updated 12/23/19 @ 14:01 by Alfred Lemus MD) Asthma Chronic steroid use HTN (hypertension) Major depressive disorder Polymyalgia rheumatica Umbilical hernia, incarcerated Surgical History (Updated 12/23/19 @ 12:58 by Alfred Lemus MD) H/O esophagogastroduodenoscopy H/O hand surgery H/O knee surgery History of appendectomy History of nasal surgery Status post colonoscopy Family History (Updated 11/04/19 @ 15:57 by Laurie Zhu LPN) Lung disease Father Asthma Denies family history of Diabetes Clotting disorder Dementia Chronic kidney disease (CKD) Social History Smoking and tobacco status: never smoked Alcohol intake: never Lives independently: Yes Household members: spouse Marital status: Current occupational status: employed Current occupational exposures/hazards: Yes History of recent travel: No Current gender identity: Male Pertinent Exam Findings alert, oriented x 3 and procedure specific exam findings (incarcerated umbilical henria) Recommendations Surgery/Procedure today Coding Level of Care Code Acute Er Registrar for Salvador Obregon
[2020-01-26] MEDS: sodium chloride 0.9% 1,000 ML 30 ML IV (12:30)
--- NOTE | 2020-01-26 13:51 | SUR.PHASEI ---
PT SLEEPY BUT NOW COMPLAINS OF PAIN OF 7 TO ABD , DR WILLIAM AT BEDSIDE WILL DO ABDOMINAL BLOCK.
--- NOTE | 2020-01-26 13:53 | P.OP_ITS ---
Operative Report Date of procedure: January 26, 2020 Pre-op Diagnosis: Incarcerated umbilical hernia Post-op Findings: Incarcerated umbilical hernia measuring 2 cm containing omentum Procedure Done: Open primary repair of umbilical hernia Surgeon: Alfred Lemus Anesthesia: General Estimated blood loss (mL): 10 Condition: stable Disposition: ICU Procedure: The patient was taken to the operating room and intubated under general anesthesia after IV antibiotic had been administered. The abdomen was prepped and draped in a sterile manner. A 2 cm infraumbilical curvilinear incision was made using a 15 blade, a hernial sac dissected out using electroca utery and dissection with hemostats. The hernial sac was opened and omentum was reduced into the peritoneal cavity. Interrupted sutures using 0 Vicryl was used to close the hernial defect without any tension. The subcutaneous tissue was approximated using 3-0 Vicryl and skin was closed using running subcuticular 4-0 Monocryl sutures. Dermabond was then applied and 10 mL of 0.5% Marcaine was i nfiltrated around the incision. A 2 x 2 gauze was then placed within the umbilicus and sterile dressings are applied. The patient was stable throughout the procedure. 10 cc of 0.5% Marcaine was infiltrated around the incisions.
--- NOTE | 2020-01-26 14:12 | ANES.PROC ---
Anesthesia Procedures Procedure/Date: 01/26/20 Nerve Block ^: Nerve Block 1: Main Anesthesia: general anesthesia Time Out Performed: Yes Consent: from patient, risks and benefits reviewed and patient agrees to proceed Nerve block location: other (B/L rectus sheath plane block) Anesthesia monitors applied: pulse oximetry, EKG, BP cuff and oxygen Nerve block position: supine Anesthetic Used: ropivicaine 0.5% (Diluted to 0.25% with saline (20cc)) and other Amount of anesthesia used (mL): 20 Interscalene/Femoral BLK: visualize local anesthetic spread and no vascular puncture identified Injection: neg aspiration of heme Patient Tolerated Procedure: well Complications: none
--- NOTE | 2020-01-26 14:30 | SUR.PHASEI ---
1359 PT READIED FOR RECTUS SHEATH BLOCK BY DR OSBORNE, PT ALERT AND AGREED TO BLOCK VERBALLY, TIME OUT PERFORMED AND BLOCK STARTED 1410 BLOCK COMPLETED PT ALERT , STATES PAIN IS ALREADY NOW A 3 FROM A 7, ABD REMAIINS LARGE FIRM BUT NOT HARD, SITE TEGADERM DRESSING CHANGED AFTER BLOCK BY RN. 1418 PT TO OPS AWAKE ALERT TALKATIVE WITH NURSE RUBÉN FLANAGAN SITE D/I VISUALLIZED BY NURSES AT HANDOFF.
== END 2020-01-26 15:20 | disposition home or self-care (01) ==
PROVIDERS: Family Provider Family Medicine; PCP Family Medicine; Visit Provider Surgery
PROC: (CPT 49587; principal; 2020-01-26 12:25)
DX: K42.0 Umbilical hernia with obstruction, without gangrene (principal); I10 Essential (primary) hypertension; F32.9 Major depressive disorder, single episode, unspecified; K21.9 Gastro-esophageal reflux disease without esophagitis; E66.01 Morbid (severe) obesity due to excess calories; Z68.33 Body mass index [BMI] 33.0-33.9, adult
CPT/HCPCS: 49587; 12345; J0330; J0690; J2405; J2704; J2710; J3010; J3490; J7030

== ENCOUNTER 2020-02-09 06:58 | Outpatient (CLI) | payer OTHER, SELFPAY ==
--- NOTE | 2020-02-09 13:22 | PFTS_ITS ---
Date of Study:02/09/20 Date of Dictation: MECHANICS: Forced vital capacity (FVC) is reduced. Forced expiratory volume in one second (FEV1) is reduced. FEV1/FVC is normal. FLOW VOLUME LOOP: Narrow. LUNG VOLUMES: Total lung capacity (TLC) is mildly reduced. Residual volume (RV) is normal. DIFFUSING CAPACITY FOR CARBON MONOXIDE: Mildly reduced. INTERPRETATION: The pulmonary function tests are consistent with moderate restriction. The total lung capacity is mildly reduced. There is significant reduction of maximal voluntary ventilation, maximal inspiratory and expiratory pressures. Gas exchange (DLCO) is mildly reduced. Overall, the pulmonary function tests are consistent with neuromuscular weakness leading to restrictive lung physiology. MTDD
== END 2020-02-09 06:59 | disposition home or self-care (01) ==
PROVIDERS: PCP Family Medicine; Visit Provider Internal Medicine Critical Care Medicine
DX: J98.4 Other disorders of lung (principal)
CPT/HCPCS: 94060; 94726; 94729; J7611

== ENCOUNTER → 2020-02-15 16:23 | Outpatient (BNVA) | payer OTHER, SELFPAY | PROVIDERS: PCP Family Medicine; Visit Provider Internal Medicine Rheumatology | DX: M35.3 Polymyalgia rheumatica (principal); Z79.52 Long term (current) use of systemic steroids; Z79.899 Other long term (current) drug therapy | CPT/HCPCS: 36415; 80076; 82565; 85025; 85651; 86140; 99214 ==

== ENCOUNTER → 2020-05-09 16:04 | Outpatient (BNVA) | payer OTHER, SELFPAY | PROVIDERS: PCP Family Medicine; Visit Provider Internal Medicine Rheumatology | DX: M25.50 Pain in unspecified joint (principal); Z79.899 Other long term (current) drug therapy; Z79.52 Long term (current) use of systemic steroids | CPT/HCPCS: 36415; 80076; 82565; 85025; 85651; 86140; 99214 ==

== ENCOUNTER 2020-08-14 15:53 | Outpatient (CLI) | payer OTHER, SELFPAY ==
--- NOTE | 2020-08-14 16:05 | XRR_ITS ---
PROCEDURE INFORMATION: Exam: XR Left Knee Exam date and time: 08/14/2020 4:07 PM Age: 54 years old Clinical indication: Pain; Knee; Left; Additional info: Knee pain left x 1 month TECHNIQUE: Imaging protocol: XR Left knee. Views: 3 views. COMPARISON: No relevant prior studies available. FINDINGS: Bones/joints: Mild patellofemoral compartment primary osteoarthritis. Soft tissues: Normal. XR/XR knee LT 3V* [id number] IMPRESSION: Mild patellofemoral compartment primary osteoarthritis.
== END 2020-08-14 15:54 | disposition home or self-care (01) ==
LOC: LAB 15:57 → RAD 16:09
PROVIDERS: PCP Family Medicine; Visit Provider Family Medicine
DX: M17.12 Unilateral primary osteoarthritis, left knee (principal)
CPT/HCPCS: 73562

== ENCOUNTER 2021-01-11 22:01 | Inpatient (IN) | payer OTHER, SELFPAY ==
[2021-01-11 22:09] VITALS: BP 164/96; PULSE 81; RESP 19; TEMP 36.4; O2SAT 96; BMI 34.5
--- NOTE | 2021-01-11 22:27 | XR_ITS ---
WS: [id number] Portable AP upright chest, 01/11/2021 Clinical Data: sob Comparison: Portable chest, 10/16/2019. Findings: No nodules, masses or effusions are seen. The heart is slightly enlarged. The pulmonary vas cularity is not increased. No pneumonia or pneumothorax is seen. XR/XR chest 1V portable [id number] Impression: Cardiomegaly.
--- NOTE | 2021-01-11 22:27 | ECG_ITS ---
[facility] [place] Date: 2021-01-11 Pat Name: Madi Lowe Department: Room: Gender: Male Rn Gyn: : 1965 Requested By: Sorin Coello Order Number: [id number] Mason MD: Thuy Gallegos M.D. Measurements Intervals [place] Rate: 71 P: 8 MI: 181 QRS: 0 QRSD: 104 T: 64 QT: 416 QTc: 452 Interpretive Statements SINUS RHYTHM INCOMPLETE RIGHT BUNDLE BRANCH BLOCK [90+ ms QRS DURATION, TERMINAL R IN V1/V2, 40+ ms S IN I/aVL/V4/V5/V6] Compared to ECG 10/17/2019 03:16:48 Incomplete right bundle-branch block now present Electronically Signed On 01-13-2021 5:20:38 CDT by Thuy Gallegos M.D. [id number]
[2021-01-12] VITALS (26 sets, daily range): BP systolic 124–177; BP diastolic 73–116; PULSE 62–82; RESP 16–22; TEMP 36.5–36.9; O2SAT 92–98
--- NOTE | 2021-01-12 00:22 | CTR_ITS ---
PROCEDURE INFORMATION: Exam: CT Head Without Contrast Exam date and time: 01/12/2021 12:26 AM Age: 55 years old Clinical indication: Patient HX: Dizziness with hypertension. ; Additional info: Dizzy TECHNIQUE: Imaging protocol: Computed tomography of the head without contrast. Radiation optimization: All CT scans at this facility use at least one of these dose optimization techniques: automated exposure control; mA and/or kV adjustment per patient size (includes targeted exams where dose is matched to clinical indication); or iterative reconstruction. ADDITIONAL STUDY INFORMATION: Total DLP (mGy-cm): 1358.72 COMPARISON: CT head wo con* [id number] 01/27/2019 12:29 PM FINDINGS: There is mild low density in the bilateral periventricular white matter which may represent chronic small vessel ischemic disease in the appropriate clinical setting. The possibility of superimposed acute infarctions cannot be excluded; consider MRI brain (including diffusion images) for further assessment if clinically warranted and if patient has no contraindication to MRI. There are at least moderate intracranial arterial calcifications. Ventricles do not appear significantly dilated. No depressed calvarial fracture is demonstrated. There is opacification in some of the visualized paranasal sinuses, most compatible with mucosal disease. Visualized mastoid air cells demonstrate no significant opacification. CT/CT head wo con* [id number] IMPRESSION: Probable chronic ischemic changes as discussed above. Other findings as discussed above. Radiation Dose CTDIVOL = (mGy): DLP = 1358.72 (mGy-cm)
--- NOTE | 2021-01-12 00:27 | ECG_ITS ---
Test Date: 2021-01-11 Pat Name: Madi Lowe Department: Room: Gender: Male Supervisor Chemical: : 1965 Requested By: Sorin Coello Order Number: [id number] Marlon MD: Thuy Gallegos M.D. Measurements Intervals [place] Rate: 77 P: -16 ID: 160 QRS: -7 QRSD: 110 T: 61 QT: 387 QTc: 438 Interpretive Statements SINUS RHYTHM INCOMPLETE RIGHT BUNDLE BRANCH BLOCK [90+ ms QRS DURATION, TERMINAL R IN V1/V2, 40+ ms S IN I/aVL/V4/V5/V6] NONSPECIFIC T-WAVE ABNORMALITY Compared to ECG 10/17/2019 03:16:48 Incomplete right bundle-branch block now present T-wave abnormality now present Electronically Signed On 01-13-2021 5:27:58 CDT by Thuy Gallegos M.D. [email or web address].[email or web address]/store/[id number] melinda
--- NOTE | 2021-01-12 00:38 | W.ED.CHESTPA ---
HPI - Chest Pain General: Chief Complaint: Chest Pain Stated Complaint: DIFF BREATHING Time Seen by Provider: 01/12/21 00:02 Source: patient Mode of arrival: ambulatory Limitations: no limitations History of Present Illness: HPI narrative: 55-year-old male has been having difficulty with his blood pressure recently. He states he saw his PCP who started him on losartan amlodipine and increase his metoprolol. He states that today his blood pressures been running high in the 160s and 170s. He also took a clonidine with no help. He states he is been having chest pains over the last month. He states that they have been sharp pains in the center of his chest. He states he is also just has not been feeling well and has been having some weakness and dizziness. He denies any fevers. Denies any focal deficits. He is able ambulate. He states his chest pain currently is a 2 out of 10. Denies any vomiting or diarrhea. Associated symptoms: Deny abdominal pain, dyspnea, fever(s), nausea or vomiting Review of Systems Const: Denies: fever(s), chills, body aches or change in appetite Eyes: Denies: blurry vision or eye discomfort ENMT: Denies: throat pain or dental pain Card: Reports: chest pain Resp: Denies: dyspnea GI: Denies: abdominal pain, nausea, vomiting or diarrhea : Denies: dysuria Musc: Denies: neck pain or back pain Skin/Breast: Denies: rash Neuro: Reports: dizziness Psych: Denies: depression Markus/Lymph: Denies: easy bruising All/Imm: Denies: urticaria PFSH ED PFSH: Medical History (Updated 01/12/21 @ 03:11 by Sorin Coello MD) Asthma Chronic steroid use High risk medication use HTN (hypertension) Immunization counseling Major depressive disorder Polymyalgia rheumatica Surgical History H/O esophagogastroduodenoscopy H/O hand surgery H/O knee surgery History of appendectomy History of nasal surgery History of umbilical hernia repair (01/26/20) Status post colonoscopy Family History Father Lung disease Asthma Denies family history of Diabetes Clotting disorder Dementia Chronic kidney disease (CKD) Social History Smoking and tobacco status: never smoked Alcohol intake: never Lives independently: Yes Household members: spouse Marital status: Current occupational status: employed Current occupational exposures/hazards: Yes History of recent travel: No Current gender identity: Male Physical Exam Const: COMMON NORMALS: no acute distress, patient oriented x3 and healthy appearing HENMT: COMMON NORMALS: normocephalic and atraumatic HEAD & SCALP: normocephalic and atraumatic Eye: COMMON NORMALS: Equal, round and reactive pupils present and EOMs intact bilaterally PUPIL: Yes Equal, round and reactive pupils present Neck/C-Spine: COMMON NORMALS: full ROM and supple Chest: COMMONS NORMALS: normal inspection of the chest and normal palpation of entire chest wall Resp: COMMON NORMALS: normal respiratory effort, No retractions, No use of accessory muscles and clear to auscultation bilaterally AUSCULTATION: clear to auscultation bilaterally Cardio: COMMON NORMALS: regular rate, regular rhythm and No murmurs present (Cardio) RATE: regular rate RHYTHM: regular rhythm GI: COMMON NORMALS: Normal to inspection, nondistended, normoactive bowel sounds present, Soft to palpation, non-tender and no masses PALPATION: Yes Soft to palpation Extremity: COMMON NORMALS: normal to inspection and full ROM Neuro: COMMON NORMALS: patient oriented x3, moves all extremities and no focal motor deficits Psych: COMMON NORMALS: mental status grossly normal, Normal thought process present and cooperative THOUGHT PROCESS: Normal thought process present Skin: COMMON NORMALS: no rashes or lesions noted and no wounds GENERAL SKIN EXAM: no rashes or lesions noted Course Vital Signs: Vital signs: Vital Signs Temperature 97.6 F 01/11/21 22:09 Pulse Rate 74 01/12/21 03:32 Respiratory Rate 18 01/12/21 03:32 Blood Pressure 137/91 01/12/21 03:32 Pulse Oximetry 97 01/12/21 03:32 MDM - Chest Pain MDM Narrative: Medical decision making narrative: Patient presents here with high blood pressure along with chest pain. He has been having high blood pressure increasing over the last few weeks. He just recently saw his PCP and had a amlodipine and HCTZ and increase his metoprolol to 200 mg and states he still been having high blood pressure. Here his blood pressure has been 170/110. Required 30 of labetalol to get it to decrease. Patient CT chest along with troponins are normal. He is having chest pain. I spoke to hospitalist and will admit for observation. Lab Data: Labs: Lab Results 01/12/21 01/12/21 01/12/21 Range/Units 00:12 00:12 00:12 WBC 5.1 (4.0-10.0) 10^3/ uL RBC 4.21 (4.1-5.3) 10^6/u L Hgb 11.7 (11.7-16.6) g/dL Hct 37.4 L (42.0-52.0) % MCV 88.8 (80-94) fL MCH 27.8 L (28.0-34.0) pg MCHC 31.3 (30.0-36.0) g/dL RDW 17.3 H (12.1-15.1) % Plt Count 278 (130-400) 10^3/c mm MPV 9.7 (7.4-10.4) fL Neut % (Auto) 49.0 % Lymph % (Auto) 25.8 % Dillon % (Auto) 16.8 % Eos % (Auto) 7.2 % Baso % (Auto) 1.0 % Neut # (Auto) 2.51 (1.8-7.7) 10^3/u L Lymph # (Auto) 1.3 (0.8-4.8) 10^3/u L Dillon # (Auto) 0.9 (0.2-0.9) 10^3/u L Eos # (Auto) 0.4 (0.0-0.8) 10^3/u L Baso # (Auto) 0.1 (0.0-0.1) 10^3/u L Nucleated RBC % (a uto) 0 % Nucleated RBCs # 0.0 /100WBC PT (12.1-14.9) SECO NDS INR (0.8-1.2) Sodium 136 (136-145) mmol/L Potassium 3.8 (3.5-5.1) mmol/L Chloride 99 (98-107) mmol/L Carbon Dioxide 28 (22-29) mmol/L Anion Gap 12.8 (5-19) BUN 10 (6-20) mg/dL Creatinine 1.1 (0.7-1.2) mg/dL GFR Calculation 70.0 L (90-130) mL/min Glucose 109 (65-115) mg/dL Calculated Osmolal ity 282 L (285-295) mOsm/k g Calcium 8.8 (8.5-10.5) mg/dL Total Bilirubin 0.3 (0.15-1.2) mg/dL AST 19 (0-40) U/L ALT 26 (0-41) U/L Alkaline Phosphata se 48 (40-130) IU/L Troponin T Baselin e 9 (0-15) ng/L Troponin T 120 Min sergey (0-15) ng/L Delta Troponin T (0-10) ABS# NT-Pro-B Natriuret Pep 103 (0-125) pg/mL Total Protein 6.5 L (6.6-8.7) g/dL Albumin 4.2 (3.5-5.2) g/dL Globulin 2.3 (1.3-4.6) g/dL 01/12/21 01/12/21 Range/Units 00:38 02:18 WBC (4.0-10.0) 10^3/ uL RBC (4.1-5.3) 10^6/u L Hgb (11.7-16.6) g/dL Hct (42.0-52.0) % MCV (80-94) fL MCH (28.0-34.0) pg MCHC (30.0-36.0) g/dL RDW (12.1-15.1) % Plt Count (130-400) 10^3/c mm MPV (7.4-10.4) fL Neut % (Auto) % Lymph % (Auto) % Dillon % (Auto) % Eos % (Auto) % Baso % (Auto) % Neut # (Auto) (1.8-7.7) 10^3/u L Lymph # (Auto) (0.8-4.8) 10^3/u L Dillon # (Auto) (0.2-0.9) 10^3/u L Eos # (Auto) (0.0-0.8) 10^3/u L Baso # (Auto) (0.0-0.1) 10^3/u L Nucleated RBC % (a uto) % Nucleated RBCs # /100WBC PT 13.70 (12.1-14.9) SECO NDS INR 1.02 (0.8-1.2) Sodium (136-145) mmol/L Potassium (3.5-5.1) mmol/L Chloride (98-107) mmol/L Carbon Dioxide (22-29) mmol/L Anion Gap (5-19) BUN (6-20) mg/dL Creatinine (0.7-1.2) mg/dL GFR Calculation (90-130) mL/min Glucose (65-115) mg/dL Calculated Osmolal ity (285-295) mOsm/k g Calcium (8.5-10.5) mg/dL Total Bilirubin (0.15-1.2) mg/dL AST (0-40) U/L ALT (0-41) U/L Alkaline Phosphata se (40-130) IU/L Troponin T Baselin e (0-15) ng/L Troponin T 120 Min sergey 8.84 (0-15) ng/L Delta Troponin T -0.16 L (0-10) ABS# NT-Pro-B Natriuret Pep (0-125) pg/mL Total Protein (6.6-8.7) g/dL Albumin (3.5-5.2) g/dL Globulin (1.3-4.6) g/dL Imaging Data^: CXR: Attestation: I personally reviewed and interpreted this imaging study as follows: My impression: no acute abnormality CT Head: Attestation: I personally reviewed and interpreted this imaging study as follows: Radiologist's impression: [address] [address] [address] Scan Report Signed Patient: Madi Lowe Unit #: [id number] : 1965 Age/Sex: 55 / M ADM Date: 01/11/21 Loc: ER Room/Bed: Attending Dr: Ordering Provider/Ordering MD: Sorin Coello MD Date of Service: 01/12/21 Procedure(s): CT head wo con* [id number] Accession Number(s): [id number] Report Number: [id number] PROCEDURE INFORMATION: Exam: CT Head Without Contrast Exam date and time: 01/12/2021 12:26 AM Age: 55 years old Clinical indication: Patient HX: Dizziness with hypertension. ; Additional info: Dizzy TECHNIQUE: Imaging protocol: Computed tomography of the head without contrast. Radiation optimization: All CT scans at this facility use at least one of these dose optimization techniques: automated exposure control; mA and/or kV adjustment per patient size (includes targeted exams where dose is matched to clinical indication); or iterative reconstruction. ADDITIONAL STUDY INFORMATION: Total DLP (mGy-cm): 1358.72 COMPARISON: CT head wo con* [id number] 01/27/2019 12:29 PM FINDINGS: There is mild low density in the bilateral periventricular white matter which may represent chronic small vessel ischemic disease in the appropriate clinical setting. The possibility of superimposed acute infarctions cannot be excluded; consider MRI brain (including diffusion images) for further assessment if clinically warranted and if patient has no contraindication to MRI. There are at least moderate intracranial arterial calcifications. Ventricles do not appear significantly dilated. No depressed calvarial fracture is demonstrated. There is opacification in some of the visualized paranasal sinuses, most compatible with mucosal disease. Visualized mastoid air cells demonstrate no significant opacification. CT/CT head wo con* [id number] IMPRESSION: Probable chronic ischemic changes as discussed above. Other findings as discussed above. CTA Chest: Attestation: I personally reviewed and interpreted this imaging study as follows: Radiologist's impression: [address] [address] [address] Scan Report Signed Patient: Madi Lowe Unit #: [id number] : 1965 Age/Sex: 55 / M ADM Date: 01/11/21 Loc: ER Room/Bed: Attending Dr: Ordering Provider/Ordering MD: Sorin Coello MD Date of Service: 01/12/21 Procedure(s): CT angio chest PE protcl [id number] Accession Number(s): [id number] Report Number: [id number] PROCEDURE INFORMATION: Exam: CTA Chest With Contrast Exam date and time: 01/12/2021 1:42 AM Age: 55 years old Clinical indication: Pain; Shortness of breath; Patient HX: Chest pressure with SOB. ; Additional info: Cp TECHNIQUE: Imaging protocol: Computed tomographic angiography of the chest with contrast. 3D rendering (Not supervised by radiologist): MIP and/or 3D reconstructed images were created by the technologist. Radiation optimization: All CT scans at this facility use at least one of these dose optimization techniques: automated exposure control; mA and/or kV adjustment per patient size (includes targeted exams where dose is matched to clinical indication); or iterative reconstruction. Contrast material: OMNI 350; Contrast volume: 83 ml; Contrast route: INTRAVENOUS (IV); COMPARISON: CT angio chest PE protcl [id number] 10/16/2019 11:13 PM RADIATION DOSE METRICS: Total DLP (mGy-cm): 900.78 FINDINGS: Pulmonary arteries: No pulmonary embolism. Aorta: Mild atherosclerotic disease of the aorta without aneurysm. Lungs: Unremarkable. No consolidation. No masses. Pleural spaces: Unremarkable. No pneumothorax. No pleural effusion. Heart: Unremarkable. No cardiomegaly. No pericardial effusion. Mediastinal space: There is a small hiatal hernia. Lymph nodes: Unremarkable. No enlarged lymph nodes. Liver: There is fatty infiltration of the liver. Bones/joints: Unremarkable. No acute fracture. Soft tissues: Unremarkable. CT/CT angio chest PE protcl [id number] IMPRESSION: 1. No pulmonary embolism. 2. Mild atherosclerotic disease of the aorta without aneurysm. 3. There is a small hiatal hernia. 4. Fatty infiltration of the liver. EKG Data^: EKG 1: Attestation: I personally reviewed and interpreted this EKG as follows: EKG interpretation date: 01/11/21 EKG interpretation time: 23:34 Interpretation: nsr hr [address] or t wave abnormalities qrs 104 qtc 438 EKG 2: Attestation: I personally reviewed and interpreted this EKG as follows: EKG interpretation date: 01/12/21 EKG interpretation time: 02:22 Interpretation: nsr hr [address] or t wave abnormalities qrs 103 [id number] Discharge Plan Discharge Patient Disposition: Admitted As Inpatient Admit Provider: Yuri Muller Clinical Impression: Chest pain Qualifiers: Chest pain type: unspecified Qualified Code(s): R07.9 - Chest pain, unspecified Hypertension Qualifiers: Hypertension type: essential hypertension Qualified Code(s): I10 - Essential (primary) hypertension Condition: Stable Coding Level of Care Code ED Accounts Payable Lead for Chg Fwd Exam Comprehensive
[2021-01-12 00:40] LABS: Basophils # 0.1 10^3/uL (0.0-0.1); Eosinophils # 0.4 10^3/uL (0.0-0.8); Eosinophils % 7.2 %; Hematocrit 37.4 % (42.0-52.0); Hemoglobin 11.7 g/dL (11.7-16.6); Lymphocytes # 1.3 10^3/uL (0.8-4.8); Lymphocytes % 25.8 %; Mean Corpuscular HGB Conc 31.3 g/dL (30.0-36.0); Mean Corpuscular Hemoglobin 27.8 pg (28.0-34.0); Mean Corpuscular Volume 88.8 fL (80-94); Mean Platelet Volume 9.7 fL (7.4-10.4); Monocytes # 0.9 10^3/uL (0.2-0.9); Monocytes % 16.8 %; Neutrophils # 2.51 10^3/uL (1.8-7.7); Nucleated Red Blood Cells % 0 %; Platelet Count 278 10^3/cmm (130-400); Red Blood Count 4.21 10^6/uL (4.1-5.3); Red Cell Distribution Width 17.3 % (12.1-15.1); White Blood Count 5.1 10^3/uL (4.0-10.0)
[2021-01-12 00:41] LABS: Troponin(5th) Baseline 9 ng/L (0-15)
[2021-01-12 00:49] LABS: Alanine Aminotransferase 26 U/L (0-41); Albumin Level 4.2 g/dL (3.5-5.2); Alkaline Phosphatase 48 IU/L (40-130); Anion Gap 12.8 (5-19); Aspartate Amino Transferase 19 U/L (0-40); Blood Urea Nitrogen 10 mg/dL (6-20); Calcium 8.8 mg/dL (8.5-10.5); Carbon Dioxide 28 mmol/L (22-29); Chloride 99 mmol/L (98-107); Globulin 2.3 g/dL (1.3-4.6); Glucose 109 mg/dL (65-115); NT Pro B Type Natriuretic Pept 103 pg/mL (0-125); Osmolality Calculated 282 mOsm/kg (285-295); Potassium 3.8 mmol/L (3.5-5.1); Sodium 136 mmol/L (136-145); Total Bilirubin 0.3 mg/dL (0.15-1.2); Total Protein 6.5 g/dL (6.6-8.7)
[2021-01-12] MEDS: labetalol 5 mg/mL SDV 20mL 10 MG IVP (01:03)
[2021-01-12 01:06] LABS: INR 1.02 (0.8-1.2)
--- NOTE | 2021-01-12 01:40 | CTR_ITS ---
PROCEDURE INFORMATION: Exam: CTA Chest With Contrast Exam date and time: 01/12/2021 1:42 AM Age: 55 years old Clinical indication: Pain; Shortness of breath; Patient HX: Chest pressure with SOB. ; Additional info: Cp TECHNIQUE: Imaging protocol: Computed tomographic angiography of the chest with contrast. 3D rendering (Not supervised by radiologist): MIP and/or 3D reconstructed images were created by the technologist. Radiation optimization: All CT scans at this facility use at least one of these dose optimization techniques: automated exposure control; mA and/or kV adjustment per patient size (includes targeted exams where dose is matched to clinical indication); or iterative reconstruction. Contrast material: OMNI 350; Contrast volume: 83 ml; Contrast route: INTRAVENOUS (IV); COMPARISON: CT angio chest PE protcl [id number] 10/16/2019 11:13 PM RADIATION DOSE METRICS: Total DLP (mGy-cm): 900.78 FINDINGS: Pulmonary arteries: No pulmonary embolism. Aorta: Mild atherosclerotic disease of the aorta without aneurysm. Lungs: Unremarkable. No consolidation. No masses. Pleural spaces: Unremarkable. No pneumothorax. No pleural effusion. Heart: Unremarkable. No cardiomegaly. No pericardial effusion. Mediastinal space: There is a small hiatal hernia. Lymph nodes: Unremarkable. No enlarged lymph nodes. Liver: There is fatty infiltration of the liver. Bones/joints: Unremarkable. No acute fracture. Soft tissues: Unremarkable. CT/CT angio chest PE protcl [id number] IMPRESSION: 1. No pulmonary embolism. 2. Mild atherosclerotic disease of the aorta without aneurysm. 3. There is a small hiatal hernia. 4. Fatty infiltration of the liver. Radiation Dose CTDIVOL = (mGy): DLP = 900.78 (mGy-cm)
[2021-01-12] MEDS: HYDROmorphone 1 mg/mL INJ 1 mL IVP (01:55)
[2021-01-12] MEDS: iohexol 350 mg/mL 100 mL Btl IV (02:02)
[2021-01-12] MEDS: ondansetron 2 mg/ML SDV 2 mL 4 MG IVP ×3 (02:15→16:48)
[2021-01-12] MEDS: labetalol 5 mg/mL SDV 20mL 20 MG IVP (02:35)
[2021-01-12 02:59] LABS: Troponin 5 2HR 8.84 ng/L (0-15)
[2021-01-12 03:11] LABS: Troponin 5 2HR Delta -0.16 ABS# (0-10)
--- NOTE | 2021-01-12 03:45 | P.HP_ITS ---
Providers/Chief Complaint Admitting Physician: Yuri Muller Primary Care Provider: Walker Sarabia MD Chief Complaint: DIFF BREATHING History of Present Illness Madi Lowe is a 55 year old male with past medical history of hypertension, asthma, PMR, obstructive sleep apnea, anxiety, GERD who presented to emergency room with complaints of chest discomfort and uncontrolled blood pressure. He reports that his symptoms started couple of weeks ago. Intermittent. He noticed on and off heavy sensation in the substernal region without radiation. It is associated with dizziness, headache, and increased blood pressure. Occasionally his blood pressure was running in 200s range. Yesterday he was seen by his primary care physician and his blood pressure medications were adjus césar. However last night his symptoms persisted. He denies associated shortness of breath, nausea or vomiting, heartburn, abdominal pain, fever or chills. He denies similar episodes in the past. Review of Systems General: Reports: 10 or more systems reviewed and unremarkable except in HPI and below Medications/Allergies Home Medications Medication Instructions Recorded Confirmed Last Taken Type citalopram 20 mg PO QAM 10/17/19 10/12/20 01/25/20 History metoprolol tartrate 100 mg PO BID 10/17/19 10/12/20 01/26/20 10:00 History folic acid 1 mg tablet 1 mg PO .once daily #90 tab 01/10/20 10/12/20 Unknown Rx losartan 50 mg tablet 100 mg PO QAM tab 01/10/20 10/12/20 01/26/20 History docusate sodium [Colace] 100 mg PO BID #30 cap 01/26/20 10/12/20 Unknown Rx omeprazole 40 mg capsule,delayed 40 mg PO DAILY #30 cap 05/09/20 10/12/20 Unknown Rx release acetaminophen 300 mg-codeine 15 mg 1 tab PO Q6H PRN #60 tab 09/12/20 10/12/20 Unknown Rx tablet naproxen 500 mg tablet,delayed 500 mg PO Q12H 14 Days #60 tab 09/12/20 10/12/20 Unknown Rx release ergocalciferol (vitamin D2) 1,250 1,250 mcg PO .weekly #15 cap 10/12/20 10/12/20 Unknown Rx mcg (50,000 unit) capsule methotrexate sodium 2.5 mg tablet 20 mg PO .Q7days #40 tab 10/12/20 10/12/20 Unknown Rx prednisone 5 mg tablet 5 mg PO DAILY #30 tab 10/12/20 10/12/20 Unknown Rx lorazepam 1 mg tablet 1 mg PO DAILY PRN #1 tab 10/18/20 Unknown Rx Allergies Allergy/AdvReac Type Severity Reaction Status Date / Time No Known Allergies Allergy Verified 10/12/20 12:06 PFSH Acute PFSH: Medical History (Updated 01/12/21 @ 03:11 by Sorin Coello MD) Asthma Chronic steroid use High risk medication use HTN (hypertension) Immunization counseling Major depressive disorder Polymyalgia rheumatica Surgical History H/O esophagogastroduodenoscopy H/O hand surgery H/O knee surgery History of appendectomy History of nasal surgery History of umbilical hernia repair (01/26/20) Status post colonoscopy Family History Father Lung disease Asthma Denies family history of Diabetes Clotting disorder Dementia Chronic kidney disease (CKD) Social History Smoking and tobacco status: never smoked Alcohol intake: never Lives independently: Yes Household members: spouse Marital status: Current occupational status: employed Current occupational exposures/hazards: Yes History of recent travel: No Current gender identity: Male Vitals/I&O/Wt Last Vital Signs Temp 97.6 F 01/11/21 22:09 Pulse 74 01/12/21 03:32 Resp 18 01/12/21 03:32 BP 137/91 01/12/21 03:32 Pulse Ox 97 01/12/21 03:32 Weight last 48 hrs Weight 106.141 kg Physical Exam Narrative: EXAM NARRATIVE: The patient is awake alert oriented. No acute distress. Mood and affect are appropriate. Responses are adequate. Skin is warm and dry. Moist mucous membranes Eyes PERRL, extraocular muscles are intact Normal speech. Cranial nerves II through XII are grossly intact Neck is supple. No JVD Lungs are clear to auscultation bilaterally Heart S1, S2, regular Abdomen soft, obese, nontender, bowel sounds are present Extremities no edema cyanosis or calf tenderness bilaterally Neuro examination nonfocal. Data : 01/12/21 00:12 01/12/21 00:12 Other Labs: Laboratory Results WBC 5.1 10^3/uL (4.0-10.0) 01/12/21 00:12 RBC 4.21 10^6/uL (4.1-5.3) 01/12/21 00:12 Hgb 11.7 g/dL (11.7-16.6) 01/12/21 00:12 Hct 37.4 % (42.0-52.0) L 01/12/21 00:12 MCV 88.8 fL (80-94) 01/12/21 00:12 MCH 27.8 pg (28.0-34.0) L 01/12/21 00:12 MCHC 31.3 g/dL (30.0-36.0) 01/12/21 00:12 RDW 17.3 % (12.1-15.1) H 01/12/21 00:12 Plt Count 278 10^3/cmm (130-400) 01/12/21 00:12 MPV 9.7 fL (7.4-10.4) 01/12/21 00:12 Neut % (Auto) 49.0 % 01/12/21 00:12 Lymph % (Auto) 25.8 % 01/12/21 00:12 [place] % (Auto) 16.8 % 01/12/21 00:12 Eos % (Auto) 7.2 % 01/12/21 00:12 Baso % (Auto) 1.0 % 01/12/21 00:12 Neut # (Auto) 2.51 10^3/uL (1.8-7.7) 01/12/21 00:12 Lymph # (Auto) 1.3 10^3/uL (0.8-4.8) 01/12/21 00:12 [place] # (Auto) 0.9 10^3/uL (0.2-0.9) 01/12/21 00:12 Eos # (Auto) 0.4 10^3/uL (0.0-0.8) 01/12/21 00:12 Baso # (Auto) 0.1 10^3/uL (0.0-0.1) 01/12/21 00:12 Nucleated RBC % (auto) 0 % 01/12/21 00:12 Nucleated RBCs # 0.0 /100WBC 01/12/21 00:12 PT 13.70 SECONDS (12.1-14.9) 01/12/21 00:38 INR 1.02 (0.8-1.2) 01/12/21 00:38 Sodium 136 mmol/L (136-145) 01/12/21 00:12 Potassium 3.8 mmol/L (3.5-5.1) 01/12/21 00:12 Chloride 99 mmol/L (98-107) 01/12/21 00:12 Carbon Dioxide 28 mmol/L (22-29) 01/12/21 00:12 Anion Gap 12.8 (5-19) 01/12/21 00:12 BUN 10 mg/dL (6-20) 01/12/21 00:12 Creatinine 1.1 mg/dL (0.7-1.2) 01/12/21 00:12 GFR Calculation 70.0 mL/min (90-130) L 01/12/21 00:12 Glucose 109 mg/dL (65-115) 01/12/21 00:12 Calculated Osmolality 282 mOsm/kg (285-295) L 01/12/21 00:12 Calcium 8.8 mg/dL (8.5-10.5) 01/12/21 00:12 Total Bilirubin 0.3 mg/dL (0.15-1.2) 01/12/21 00:12 AST 19 U/L (0-40) 01/12/21 00:12 ALT 26 U/L (0-41) 01/12/21 00:12 Alkaline Phosphatase 48 IU/L (40-130) 01/12/21 00:12 Troponin T Baseline 9 ng/L (0-15) 01/12/21 00:12 Troponin T 120 Minute 8.84 ng/L (0-15) 01/12/21 02:18 Delta Troponin T -0.16 ABS# (0-10) L 01/12/21 02:18 NT-Pro-B Natriuret Pep 103 pg/mL (0-125) 01/12/21 00:12 Total Protein 6.5 g/dL (6.6-8.7) L 01/12/21 00:12 Albumin 4.2 g/dL (3.5-5.2) 01/12/21 00:12 Globulin 2.3 g/dL (1.3-4.6) 01/12/21 00:[address] 01/12/21 00:22 IMPRESSION: Probable chronic ischemic changes as discussed above. Other findings as discussed above. Radiation Dose CTDIVOL = (mGy): DLP = 1358.72 (mGy-cm) Chest CTA 01/12/21 01:40 IMPRESSION: 1. No pulmonary embolism. 2. Mild atherosclerotic disease of the aorta without aneurysm. 3. There is a small hiatal hernia. 4. Fatty infiltration of the liver. Radiation Dose CTDIVOL = (mGy): DLP = 900.78 (mGy-cm) A&P Additional A&P Information 55-year-old male with past medical history of hypertension, sleep apnea, PMR who is presenting with chest discomfort, uncontrolled hypertension, associated dizziness. Imaging studies did not show any acute findings. EKG and troponin are without acute ischemic changes. Hypertensive urgency. His medications were adjusted yesterday by his primary care physician. We will continue adjusted regiment. Will order as needed hydralazine. If he requires we will do additional changes to his medications. Chest discomfort. Most likely secondary to #1. We will continue monitoring him on telemetry and will wait for the third troponin. We will start him on aspirin and Lipitor. We will continue home beta-bernard. Will consider inpatient or outpatient additional cardiac testing. Dizziness and headache. I suspect this is due to #1 as well. We will continue close monitoring. Will need to monitor for possible drug-induced hypotension. Fatty liver. The patient was consult. I asked him to speak with his primary care physician for long-term monitoring of his liver condition. DVT prophylaxis. Teds and SCDs. Probably he will need to stay longer than 1 midnight and probably will not need Lovenox. CODE STATUS. He wants to be full code. Plan of care was discussed with the patient and his . They verbalized understanding and agreement. Attestations Medical Necessity Statement*: Observation Coding Level of Care Code Acute Mill House Supervisor for Salvador Obregon
--- NOTE | 2021-01-12 04:27 | ECG_ITS ---
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 Measurements Intervals [place] Rate: 67 P: 6 MN: 187 QRS: 0 QRSD: 109 T: 52 QT: 417 QTc: 443 Interpretive Statements SINUS RHYTHM POSSIBLE RIGHT VENTRICULAR CONDUCTION DELAY [RSR (QR) IN V1/V2] NONSPECIFIC T-WAVE ABNORMALITY Compared to ECG 01/12/2021 02:22:53 T-wave abnormality now present Electronically Signed On 01-13-2021 5:26:40 CDT by Thuy Gallegos M.D. [email or web address]/store/[id number]
[2021-01-12] MEDS: citalopram 20 mg Tablet PO (05:16)
[2021-01-12] MEDS: losartan 50 mg Tablet 100 MG PO (05:16)
[2021-01-12 07:23] LABS: Troponin 5 6HR 7.54 ng/L (0-15)
[2021-01-12 07:25] LABS: Troponin 5 6HR Delta -1.46 ng/L (0-12)
[2021-01-12 07:31] LABS: Thyroid Stimulating Hormone 1.66 uIU/mL (0.27-4.20)
[2021-01-12 07:37] LABS: Chol HDL Ratio 6.84 mg/dL (1.0-5.00); Cholesterol 219 mg/dL (0-200); HDL Cholesterol 32 mg/dL (60-100); LDL Cholesterol Calculated 163 mg/dL (50-129); LDL HDL Ratio 5.09 RATIO (0.00-3.22); Triglycerides 121 mg/dL (0-150)
[2021-01-12] MEDS: docusate sodium 100 mg Capsule PO ×2 (09:14→18:45)
[2021-01-12] MEDS: hydroCHLOROthiazide 25 mg Tablet 12.5 MG PO (09:14)
[2021-01-12] MEDS: predniSONE 5 mg Tablet PO (09:15)
[2021-01-12] MEDS: folic acid 1 mg Tablet PO (09:15)
[2021-01-12] MEDS: metoprolol tartrate 50 mg Tablet 100 MG PO ×2 (09:16→18:45)
[2021-01-12] MEDS: pantoprazole DR 40 mg Tablet PO (09:17)
[2021-01-12] MEDS: amlodipine 5 mg Tablet 2.5 MG PO (09:17)
[2021-01-12] MEDS: aspirin 81 mg EC Tablet PO (11:21)
[2021-01-12] MEDS: morphine 4 mg/mL SDV 1 mL 2 MG IVP ×2 (11:22→16:43)
--- NOTE | 2021-01-12 13:53 | PC.CHAP ---
Pastoral Care Encounter/Spiritual Assessment Type of Contact [] Declined managed care director visit [] Patient/Family/Request visit [] Outpatient visit [] Follow-up visit [] Physician referral [] Code/Alert [xx] Routine visit [] Staff referral [] Actively dying [] Patient sleeping [] Family support [] [] Out of room [] Palliative care [] [] Receiving care in room [] Pre-surgical visit [] Trauma [] Long length of stay [] ICU visit [] Other: Relational/Emotional Strength [xx] Patient feels connected with others/family/visitors/staff [] Distress [] Loneliness/isolation [] Abandonment Spirituality of Patient [xx] Person of Carlee [] Attends Adventist of their Carlee [xx] Believes in Prayer [xx] Reads Bible or Adventist materials [] There are Spiritual issues to be addressed Media Sales Representative Interventions [xx] Prayer [xx] Active listening [xx] Non-anxious presence [] Spiritual/emotional support [] Crisis/trauma care [] Spiritual counseling [] Bereavement support [] Provided bereavement packet [xx] Provided Bible/devotional materials [] Provided toy/stuffed animal, coloring book to patient or family member [] Provided Communion [] Anointing/[place] [] Salvation [xx] Completed spiritual assessment [] Other: Impact on Illness or Injury [] Angry [] Fearful [] Anxious [] Often cries [] Exhaustion [] Unable to work [] Unable to attend episcopalian [] Unable to walk/stand [] Unable to read [] Unable to drive [] Unable to eat/drink [] Unable to sleep [] Unable to be with family [] Patient intubated [] Other: Summary Patient was quite pleasant with good sense of humor. He stated the aches that brought him to the hospital are gone but have been replaced with a different set of aches. He expects these aches will change again soon. He accepted Our Daily [employer] devotional. Time spent with patient 6 minutes
--- NOTE | 2021-01-12 17:40 | P.PN_ITS ---
Subjective Subjective: Interval history: Overnight labs and H&P reviewed. No current chest pain. Complains of ongoing dizziness on getting up to walk. BP is better controlled. Medications: Reviewed: Yes Vitals/I&O/Wt Last Vital Signs Temp 98.4 F 01/12/21 16:00 Pulse 66 01/12/21 16:00 Resp 16 01/12/21 16:43 BP 135/85 01/12/21 16:00 Pulse Ox 93 01/12/21 16:00 01/12/21 01/12/21 01/12/21 06:59 14:59 22:59 Intake Total 480 / 480 260 / 260 20 / 280 Balance 480 / 480 260 / 260 20 / 280 Weight last 48 hrs Weight 106.141 kg Physical Exam Narrative: EXAM NARRATIVE: GEN: Awake, alert and oriented, no acute distress CVS: S1S2 N RS: CTA B/L Abd: Soft, nt/nd , bs+ PATIENT PORTAL CONCIERGE: no focal neuro deficits Data : 01/12/21 00:12 01/12/21 00:12 A&P Additional A&P Information 55-year-old male with past medical history of hypertension, sleep apnea, PMR who is presenting with chest discomfort, uncontrolled hypertension, associated dizzi ness. Imaging studies did not show any acute findings. EKG and troponin are without acute ischemic changes. Hypertensive urgency. His medications were adjusted yesterday, currently BP is much better controlled Chest discomfort. Troponin series negative, no corresponding EKG chanegs, referral for stress test as outpatient Dizziness and headache. I suspect this is due to #1 as well. However still c/o dizziness in spite of normal BP. Trial of meclizine, check orthostatic vital signs. CODE STATUS. He wants to be full code. Attestations Medical Necessity Statement*: persisting dizziness in spite of BP control, continued observation, check orthosttaics, trial of meclizine Coding Level of Care Code Acute Enrollment Nurse for [facility]
[2021-01-12 19:43] LABS: SARS Covid-2 Antigen Negative (Negative)
[2021-01-12] MEDS: atorvastatin 40 mg Tablet PO (20:14)
[2021-01-13] VITALS (16 sets, daily range): BP systolic 111–146; BP diastolic 73–90; PULSE 61–75; RESP 16–18; TEMP 36.3–36.9; O2SAT 92–97
[2021-01-13] MEDS: losartan 50 mg Tablet 100 MG PO (05:14)
[2021-01-13] MEDS: citalopram 20 mg Tablet PO (05:14)
[2021-01-13 06:38] LABS: Chol HDL Ratio 7.03 mg/dL (1.0-5.00); Cholesterol 218 mg/dL (0-200); HDL Cholesterol 31 mg/dL (60-100); LDL Cholesterol Calculated 161 mg/dL (50-129); LDL HDL Ratio 5.19 RATIO (0.00-3.22); Thyroid Stimulating Hormone 1.39 uIU/mL (0.27-4.20); Triglycerides 128 mg/dL (0-150)
[2021-01-13] MEDS: aspirin 81 mg EC Tablet PO (08:16)
[2021-01-13] MEDS: folic acid 1 mg Tablet PO (08:16)
[2021-01-13] MEDS: docusate sodium 100 mg Capsule PO ×2 (08:16→17:56)
[2021-01-13] MEDS: pantoprazole DR 40 mg Tablet PO (08:16)
[2021-01-13] MEDS: predniSONE 5 mg Tablet PO (08:17)
[2021-01-13] MEDS: amlodipine 5 mg Tablet 2.5 MG PO (08:17)
[2021-01-13] MEDS: metoprolol tartrate 50 mg Tablet 100 MG PO ×2 (08:20→17:56)
[2021-01-13] MEDS: hydroCHLOROthiazide 25 mg Tablet 12.5 MG PO (08:23)
--- NOTE | 2021-01-13 13:09 | ECG_ITS ---
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 Measurements Intervals [place] Rate: 63 P: 0 [place]: 186 QRS: -15 QRSD: 97 T: 77 QT: 405 QTc: 417 Interpretive Statements SINUS RHYTHM POSSIBLE RIGHT VENTRICULAR CONDUCTION DELAY [RSR (QR) IN V1/V2] NONSPECIFIC T-WAVE ABNORMALITY Compared to ECG 01/12/2021 05:55:31 No significant changes Electronically Signed On 01-16-2021 17:33:17 CDT by Thuy Gallegos M.D. [email or web address] of [email or web address] [facility].Sure Secure Solutions/store/NU/[id number] f
--- NOTE | 2021-01-13 13:09 | XRR_ITS ---
PROCEDURE INFORMATION: Exam: XR Chest Exam date and time: 01/13/2021 1:49 PM Age: 55 years old Clinical indication: Chest pain TECHNIQUE: Imaging protocol: XR of the chest. Views: 1 view. COMPARISON: CR XR chest 1V portable [id number] 01/11/2021 10:28 PM FINDINGS: Lungs: Unremarkable. No consolidation. Pleural spaces: Unremarkable. No pleural effusion. No pneumothorax. Heart/Mediastinum: Unremarkable. No cardiomegaly. Bones/joints: No acute findings. XR/XR chest 1V portable [id number] IMPRESSION: No acute findings.
[2021-01-13] MEDS: nitroglycerin 0.4 mg sublingual Tablet SUBLINGUAL (13:43)
--- NOTE | 2021-01-13 13:45 | PC.NUTR ---
NUTR MST NOTE: Limited assessment complete. After reviewing chart, on admission, pt answered no to losing wt and a recorded answer of unsure for the amount scored 2, triggering Nutrition assessment. Eating 95% of 5 meals. Will assess appropriately.
[2021-01-13] MEDS: ipratropium-albuterol 3 mL Neb INHALATION ×2 (14:04→20:32)
--- NOTE | 2021-01-13 15:09 | ECG_ITS ---
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 Measurements Intervals [place] Rate: 67 P: 13 [place]: 188 QRS: -5 QRSD: 102 T: 63 QT: 413 QTc: 439 Interpretive Statements SINUS RHYTHM POSSIBLE RIGHT VENTRICULAR CONDUCTION DELAY [RSR (QR) IN V1/V2] Compared to ECG 01/13/2021 12:53:13 T-wave abnormality no longer present Electronically Signed On 01-16-2021 17:51:14 CDT by Thuy Gallegos M.D. [email or web address].[employer]/store/[id number] f
[2021-01-13 17:49] LABS: Troponin(5th) Baseline 9 ng/L (0-15)
--- NOTE | 2021-01-13 18:22 | P.PN_ITS ---
Subjective Subjective: Interval history: Started to complain of chest discomfort today again this afternoon while ambulating. Troponin taken, normal at 9, no exchange clerk troponin yesterday. EKG without any acute ST-T wave changes. Still complaining of dizziness. Orthostatics checked yesterday did not reveal any signs of hypotension. At the time that he complained of shortness of breath, he was noted to have wheezing, more pronounced on the left lung. Saturating 94% on room air. Medications: Reviewed: Yes Vitals/I&O/Wt Last Vital Signs Temp 97.3 F L 01/13/21 16:00 Pulse 68 01/13/21 16:00 Resp 17 01/13/21 16:00 BP 123/74 01/13/21 16:00 Pulse Ox 94 01/13/21 16:00 01/13/21 01/13/21 01/13/21 06:59 14:59 22:59 Intake Total 240 / 660 360 / 360 Output Total 0 / 0 Balance 240 / 660 360 / 360 Weight last 48 hrs Weight 106.141 kg Physical Exam Narrative: EXAM NARRATIVE: GEN: Awake, alert and oriented, no acute distress CVS: S1S2 N RS: Wheezing to auscultation bilaterally all areas. Abd: Soft, nt/nd , bs+ MEDICAL TECHNICIAN ASSISTANT: no focal neuro deficits Data : 01/12/21 00:12 01/12/21 00:12 A&P Additional A&P Information 55-year-old male with past medical history of hypertension, sleep apnea, PMR who is presenting with chest discomfort, uncontrolled hypertension, associated dizziness. Imaging studies did not show any acute findings. EKG and troponin are without acute ischemic changes. This afternoon while walking to the bathroom patient again developed an episode of chest pain, which was relieved with nitro. Tro ponin and EKG without any change compared to yesterday. On physical exam patient had wheezing, suspect that patient may have bronchospasm perhaps from acute bronchitis versus more longstanding COPD. Added DuoNeb inhalation today, monitor for any change relief. Last echo from September 2019 was with normal left ventricular size systolic function and thickness, no regional wall motion abnormalities grade 1 diastolic dysfunction. No other current signs of heart failure. Continues to have episodic chest pain in spite of relief of bronchospasm, will need stress test for further evaluation for angina CTA of the chest was without any evidence of PE. Lung was without any masses or consolidation. Hypertensive urgency. His medications were adjusted , currently BP is much better controlled Dizziness and headache. CT head without any acute abnormalities. Had added meclizine yesterday, however it does not appear that patient received it. We will try this again today. CODE STATUS. full code. Change to inpatient, continuing chest pain, will likely need evalaution for angina with stress test on Friday Attestations Medical Necessity Statement*: ongoing chest pain, bronchospasm Coding Level of Care Code Acute Explosive Ordnance Handler for Salvador Obregon
[2021-01-13] MEDS: meclizine 25 mg tablet PO (18:36)
[2021-01-13] MEDS: enoxaparin 40 mg/0.4 mL Syringe SUBCUT (18:36)
--- NOTE | 2021-01-13 19:09 | ECG_ITS ---
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 Measurements Intervals [place] Rate: 65 P: 5 ND: 182 QRS: -4 QRSD: 102 T: 65 QT: 403 QTc: 421 Interpretive Statements SINUS RHYTHM POSSIBLE RIGHT VENTRICULAR CONDUCTION DELAY [RSR (QR) IN V1/V2] Compared to ECG 01/13/2021 15:33:34 No significant changes Electronically Signed On 01-16-2021 17:50:58 CDT by Thuy Gallegos M.D. [email or web address] of delta regional medical centerAppAssure Softwarepaulding county hospital.Advisor Client Match/store/OM/[id number]
[2021-01-13 20:03] LABS: Troponin 5 2HR 7.71 ng/L (0-15)
[2021-01-13 20:04] LABS: Troponin 5 2HR Delta -1.29 ABS# (0-10)
[2021-01-13] MEDS: atorvastatin 40 mg Tablet PO (20:19)
[2021-01-14] VITALS (19 sets, daily range): BP systolic 125–147; BP diastolic 81–100; PULSE 61–76; RESP 15–20; TEMP 36.4–36.8; O2SAT 93–98
[2021-01-14 00:54] LABS: Troponin 5 6HR 10.62 ng/L (0-15); Troponin 5 6HR Delta 1.62 ng/L (0-12)
[2021-01-14] MEDS: ipratropium-albuterol 3 mL Neb INHALATION ×4 (02:51→20:52)
[2021-01-14] MEDS: citalopram 20 mg Tablet PO (06:04)
[2021-01-14] MEDS: losartan 50 mg Tablet 100 MG PO (06:04)
[2021-01-14] MEDS: metoprolol tartrate 50 mg Tablet 100 MG PO ×2 (10:25→17:27)
[2021-01-14] MEDS: hydroCHLOROthiazide 25 mg Tablet 12.5 MG PO (10:25)
[2021-01-14] MEDS: aspirin 81 mg EC Tablet PO (10:25)
[2021-01-14] MEDS: folic acid 1 mg Tablet PO (10:25)
[2021-01-14] MEDS: amlodipine 5 mg Tablet 2.5 MG PO (10:26)
[2021-01-14] MEDS: docusate sodium 100 mg Capsule PO ×2 (10:26→17:27)
[2021-01-14] MEDS: pantoprazole DR 40 mg Tablet PO (10:29)
[2021-01-14] MEDS: predniSONE 5 mg Tablet PO (10:29)
[2021-01-14] MEDS: enoxaparin 40 mg/0.4 mL Syringe SUBCUT (17:30)
--- NOTE | 2021-01-14 18:05 | P.PN_ITS ---
Subjective Subjective: Interval history: States her chest discomfort is improved, however still persisting, especially with ambulation. Inhalers appear to have helped minimally. Has not reported any dizziness today. Medications: Reviewed: Yes Vitals/I&O/Wt Last Vital Signs Temp 98.1 F 01/14/21 15:49 Pulse 74 01/14/21 15:49 Resp 18 01/14/21 15:49 BP 140/98 01/14/21 15:49 Pulse Ox 95 01/14/21 15:49 01/14/21 01/14/21 01/14/21 06:59 14:59 22:59 Intake Total 720 / 720 240 / 960 Balance 720 / 720 240 / 960 Physical Exam Narrative: EXAM NARRATIVE: GEN: Awake, alert and oriented, no acute distress CVS: S1S2 N RS: Wheezing to auscultation bilaterally all areas. Abd: Soft, nt/nd , bs+ FAST FOOD SHIFT SUPERVISOR: no focal neuro deficits Data : 01/12/21 00:12 01/12/21 00:12 A&P Additional A&P Information 55-year-old male with past medical history of hypertension, sleep apnea, PMR who is presenting with chest discomfort, uncontrolled hypertension, associated dizziness. Imaging studies did not show any acute findings. EKG and troponin are without acute ischemic changes x2. On physical exam patient had wheezing, which is much improved today after adding inhaled DuoNeb, suspect that patient may have bronchospasm perhaps from acute bronchitis versus more longstanding COPD. Patient still reporting subjective chest pain. Last echo from September 2019 was with normal left ventricular size systolic function and thickness, no regional wall motion abnormalities grade 1 diastolic dysfunction. Will repeat No other current signs of heart failure. Continues to have episodic chest pain in spite of relief of bronchospasm, BP control CTA of the chest was without any evidence of PE. Lung was without any masses or consolidation. Cannot exclude angina, stress test tomorrow morning. Hypertensive urgency. His medications were adjusted , currently BP is much better controlled Dizziness and headache. CT head without any acute abnormalities. Orthostatics within normal limit CODE STATUS. full code. Attestations Medical Necessity Statement*: Stress test tomorrow Coding Level of Care Code Acute Box Closing Machine Operator for Salvador Obregon
[2021-01-14] MEDS: atorvastatin 40 mg Tablet PO (20:47)
[2021-01-14] MEDS: morphine 4 mg/mL SDV 1 mL 2 MG IVP (20:57)
[2021-01-15] VITALS (9 sets, daily range): BP systolic 130–144; BP diastolic 72–98; PULSE 61–82; RESP 17–18; TEMP 36.4; O2SAT 94–97
[2021-01-15] MEDS: ipratropium-albuterol 3 mL Neb INHALATION (02:30)
--- NOTE | 2021-01-15 06:00 | ECG_ITS ---
[facility] Test Date: 2021-01-15 Pat Name: Madi Lowe Department: Room: 256 Gender: Male Top Hat Body Maker: Jyotsna Lopez : 1965 Requested By: Selena Espino Order Number: [id number] Marlon MD: Isak Boyce M.D. Interpretive Statements NAME OF STUDY: LEXISCAN SESTAMIBI STRESS TEST INDICATION: [Chest Pain] Procedure: At the baseline, the blood pressure was 141/98 mmHg with a heart rate of 67 bpm. The electrocardiogram showed normal sinus rhythm, normal axis with normal ST and T's. The Lexiscan was infused over a period of 20 seconds. A total of 0.4 mg of Lexiscan was infused. The stress phase was continued for a total of 5 minutes. Heart rate was at the end of stress phase was 87 bpm and a blood pressure of 146/99 mmHg. The EKG at the peak infusion revealed since normal sinus rhythm with no significant ST-T wave changes. Sestamibi was injected 20 seconds after the Lexiscan infusion. Blood pressure at the end of recovery phase was 131/103 mmHg with a heart rate of 84 bpm. Conclusion: 1. Normal EKG response to Lexiscan infusion 2. No Lexiscan induced chest pain or cardiac arrhythmia. 3. Normal blood pressure and heart rate response. 4. Sestamibi/sestamibi perfusion scan pending; see separate report. Electronically Signed On 01-27-2021 12:06:00 CDT by Isak Boyce M.D. [email or web address]/store/[id number]
[2021-01-15] MEDS: losartan 50 mg Tablet 100 MG PO (06:56)
[2021-01-15] MEDS: citalopram 20 mg Tablet PO (06:56)
--- NOTE | 2021-01-15 07:00 | NMCV_ITS ---
NM suzanne perf SPECT r/s* [id number] Madi Lowe Age: 55 Gender: M : 1965 Exam Date: 01/15/2021 07:58 Ordering Phys: Selena Espino MD Technologist: KIM Mcmanus Exam Location: [facility] Indications: Diff breathing STRESS TEST Please see separate stress test report in [facility] for full findings IMAGE PROTOCOL Rest/Stress 1 Lexiscan Day Radiopharmaceutical Dose (mCi) Administration Site Administered by Rest: Tc-99m 11.0 IV KIM Shannon Sestamibi Stress:Tc-99m 32.9 IV KIM Mcmanus Sestamieva Rest: 01/15/2021 60 Discovery 630 Stress: 01/15/2021 45 Discovery 630 0.4mg Lexiscan. Images obtained in supine and prone position. SPECT RESULTS Technical Quality: Good Raw Data Analysis: Normal Image Corrections: No attenuation or motion correction applied Summed Stress Score: 0 Summed Rest Score: 0 Summed Difference Score: 0 PERFUSION FINDINGS SPECT images demonstrate homogeneous tracer distribution throughout the myocardium. FUNCTIONAL RESULTS (calculated via Gated SPECT) Stress Image LV EF (%): 63 Stress EDV (mL):93 TID: 0.93 Stress ESV (mL):34 FUNCTIONAL FINDINGS: There is normal left ventricular systolic function. IMPRESSIONS 1. Normal myocardial perfusion imaging with no evidence of ischemia 2. LV systolic function is normal Isak Boyce MD (Electronically Signed) Final Date: 15 January 2021 10:44 S
--- NOTE | 2021-01-15 07:00 | USCV_ITS ---
Madi Lowe Age: 55 Gender: M : 1965 Exam Date: 01/15/2021 05:41 Ordering Phys: Selena Espino MD Technologist: Fiorella Burkett [place] [facility] [place]ication: CHEST PAIN, ANGINA BP: / HR: 60 Rhythm: Sinus Technical Quality: Adequate MEASUREMENTS (Male / Female) Normal Values 2D ECHO LV Diastolic Diameter PLAX 4.2 cm 4.2 - 5.9 / 3.9 - 5.3 cm LV Systolic Diameter PLAX 2.8 cm LV Chamber Size 3.6 cm IVS Diastolic Thickness 1.4 cm 0.6 - 1.0 / 0.6 - 0.9 cm IVS Systolic Thickness 2.1 cm LVPW Diastolic Thickness 1.7 cm 0.6 - 1.0 / 0.6 - 0.9 cm LVPW Systolic Thickness 1.6 cm RV Chamber Size 2.7 cm LVOT Diameter 2.0 cm LV Ejection Fraction 2D Teich 60.8 % LV Ejection Fraction MOD 2C 59.2 % LV Ejection Fraction 2C AL 60.4 % LA Diameter 4.0 cm LA Width 3.0 cm LA Height 4.3 cm RA Width 3.3 cm RA Height 3.3 cm Aorta at Sinotubular Diameter 4.0 cm M-MODE LV Diastolic Diameter MM 4.3 cm 4.2 - 5.9 / 3.9 - 5.3 cm LV Systolic Diameter MM 2.4 cm LV Ejection Fraction MM Teich 76.4 % IVS Diastolic Thickness MM 1.6 cm 0.6 - 1.0 / 0.6 - 0.9 cm IVS Systolic Thickness MM 2.1 cm LVPW Diastolic Thickness MM 1.7 cm 0.6 - 1.0 / 0.6 - 0.9 cm LVPW Systolic Thickness MM 2.2 cm Aortic Annulus Diameter 3.8 cm LA Ao Ratio MM 1.1 MV E Point Septal Separation 0.7 cm DOPPLER AV Peak Velocity 88.0 cm/s LVOT Peak Velocity 88.0 cm/s AV Area Cont Eq vti 3.7 cm squared AV Area Cont Eq pk 3.3 cm squared MV Area PHT 2.5 cm squared Mitral E to A Ratio 0.8 MV E' Velocity 27.5 cm/s Mitral E to MV E' Ratio 8.1 Mitral E to LV E' Lateral Ratio 6.5 Mitral E to LV E' Septal Ratio 10.6 TR Peak Velocity 177.0 cm/s TR Peak Gradient 12.5 mmHg TV Peak E Velocity 47.0 cm/s Right Atrial Pressure 3.0 mmHg Pulmonary Artery Systolic Pressu 15.5 mmHg PV Peak Velocity 51.0 cm/s RV Acceleration Time 0.2 s RV Ejection Time 0.4 s RV AcT/ET 0.4 FINDINGS Left Ventricle Normal left ventricular cavity size. Increased left ventricular wall thickness. Normal left ventricular systolic function. Left ventricular ejection fraction is estimated at 65 %. No regional wall motion abnormalities. Grade I diastolic dysfunction (abnormal relaxation filling pattern), normal to mildly elevated filling pressures. Right Ventricle Normal right ventricular size and systolic function. Right ventricular systolic pressure 15.5 mmHg. Right Atrium Normal right atrial size. Left Atrium Normal left atrial size. Mitral Valve Structurally normal mitral valve. No mitral valve stenosis. Trace mitral valve regurgitation. Aortic Valve Structurally normal trileaflet aortic valve. No aortic valve stenosis. No aortic valve regurgitation. Tricuspid Valve Structurally normal tricuspid valve. Trace tricuspid valve regurgitation. Pulmonic Valve Pulmonic valve not well visualized. No pulmonary valve stenosis. Trace pulmonary valve regurgitation. Pericardium No pericardial effusion. Aorta Normal size aortic root and proximal ascending aorta. CONCLUSIONS 1. Normal left ventricular cavity size. Increased left ventricular wall thickness. Normal left ventricular systolic function. Left ventricular ejection fraction is estimated at 65 %. No regional wall motion abnormalities. Grade I diastolic dysfunction (abnormal relaxation filling pattern), normal to mildly elevated filling pressures. 2. Normal right ventricular size and systolic function. 3. Normal pulmonary artery pressure. 4. No significant valvular abnormality. 5. No significant change when compared to previous report dated 10/18/2019. Thuy Gallegos MD (Electronically Signed) Final Date: 15 January 2021 15:55 S
[2021-01-15] MEDS: regadenoson 0.4 Mg/5 ml Syringe IVP (08:52)
[2021-01-15] MEDS: metoprolol tartrate 50 mg Tablet 100 MG PO (09:05)
[2021-01-15] MEDS: folic acid 1 mg Tablet PO (09:06)
[2021-01-15] MEDS: hydroCHLOROthiazide 25 mg Tablet 12.5 MG PO (09:06)
[2021-01-15] MEDS: pantoprazole DR 40 mg Tablet PO (09:06)
[2021-01-15] MEDS: aspirin 81 mg EC Tablet PO (09:07)
[2021-01-15] MEDS: docusate sodium 100 mg Capsule PO (09:07)
[2021-01-15] MEDS: amlodipine 5 mg Tablet 2.5 MG PO (09:07)
[2021-01-15] MEDS: predniSONE 5 mg Tablet PO (09:07)
[2021-01-15] MEDS: ergocalciferol (vitamin D2) 50,000 Unit Capsule 50000 UNIT PO (10:07)
--- NOTE | 2021-01-15 12:03 | P.DS_ITS ---
Discharge Providers Date of Admission: 01/13/21 18:31 Date of Discharge: January 15, 2021 Attending Provider at Admission: Yuri Muller Attending Provider at Discharge: Alvin Middleton MD Primary Care Provider: Walker Sarabia MD Diagnoses at Discharge Discharge Diagnosis (1) Atypical chest pain: Status: Resolved (2) Hypertension: Status: Chronic Qualifiers: Hypertension type: essential hypertension Qualified Code(s): I10 - Essential (primary) hypertension (3) Chronic steroid use: Status: Chronic (4) Polymyalgia rheumatica: Status: Chronic (5) Complex sleep apnea syndrome: Status: Chronic Reason for Visit Reason for Visit: DIFF BREATHING Hospital Course Hospital Course 55 year old male with past medical history of hypertension, asthma, PMR, obstructive sleep apnea, anxiety, GERD who presented to emergency room with complaints of chest discomfort and uncontrolled blood pressure. He reports that his symptoms started couple of weeks ago. Intermittent. He noticed on and off heavy sensation in the substernal region without radiation.He was admitted for the management of Hypertensive urgency, amlodipine 2.5 mg po daily was added to his other anti htn medications for better b/p control. For his Chest discomfort.He was managed for atypical chest likely MSK. Nuclear stress test was normal, EKG and troponin are without acute ischemic changes x2. Last echo from [facility] was with normal left ventricular size systolic function and thickness, no regional wall motion abnormalities grade 1 diastolic dysfunction.CTA of the chest was without any evidence of PE. Lung was without any masses or consolidation. For his Dizziness and headache. CT head without any acute abnormalities. Orthostatics within normal limit.Dizziness and headache had resolved at the time of discharge.Patient responded well to the above medical management and is being discharged in stable condition and he will continue to follow his pcp as outpatient. Physical Exam Narrative: EXAM NARRATIVE: GEN: Awake, alert and oriented, no acute distress CVS: S1S2 N RS: Wheezing to auscultation bilaterally all areas. Abd: Soft, nt/nd , bs+ ENGINE TEST CELL TECHNICIAN: no focal neuro deficits Discharge Data Data Completed and Pending: Completed Studies During Hospitalization Category Date Time Status CT angio chest PE protcl [id number] Urge nt Cat Scan 01/12/21 01:[address] head wo con* 7 [id number] Urgent Cat Scan 01/12/21 00:22 Completed Sestamibi Stress Test Request Chantell ne Exams 01/15/21 06:00 Draft XR chest 1V nicole ble [id number] Stat Exams 01/11/21 22:27 Completed XR chest 1V nicole ble [id number] Stat Exams 01/13/21 13:09 Completed NM suzanne perf SPECT r/s* [id number] Routin e Nuc Med 01/15/21 07:00 Completed Pending at discharge Category Date Time Status Sestamibi Stress Test Request Routi ne Exams 01/14/21 18:04 Stop Req CV echo complete* [id number] Routine Ultrasound 01/15/21 07:00 Taken Vitals: Last Vital Signs Temp 97.6 F 01/15/21 11:13 Pulse 65 01/15/21 11:13 Resp 18 01/15/21 11:13 BP 144/78 01/15/21 11:13 Pulse Ox 96 01/15/21 11:13 Discharge Plan Discharge Patient Disposition: Home Condition: Stable Prescriptions: New amlodipine 2.5 mg tablet 2.5 mg PO DAILY Qty: 30 RF: 2 Continued ergocalciferol (vitamin D2) 1,250 mcg (50,000 unit) capsule 1,250 mcg PO .weekly Qty: 15 RF: 1 methotrexate sodium 2.5 mg tablet 20 mg PO .Q7days Qty: 40 RF: 4 prednisone 5 mg tablet 5 mg PO DAILY Qty: 30 RF: 4 omeprazole 20 mg capsule,delayed release(DR/EC) 20 mg PO DAILY RF: 0 hydrochlorothiazide 25 mg Tablet 25 mg PO DAILY RF: 0 albuterol sulfate 90 mcg/actuation Hfa Aerosol Inhaler 2 puff INHALATION Q4H PRN (Reason: Shortness Of Breath) RF: 0 metoprolol tartrate 100 mg Tablet 100 mg PO BID RF: 0 citalopram 20 mg Tablet 20 mg PO DAILY RF: 0 losartan 50 mg tablet 100 mg PO DAILY RF: 0 Discharge Orders: Discharge Order (Routine); Ordered 01/15/21 Ordered By: Alvin Middleton Referrals: Walker Sarabia MD [Primary Care Provider] - 01/29/21 11:00 am Discharge Diet: Low Salt Discharge Activity: Resume usual activity Patient Instructions: Amlodipine (By mouth), Chest Pain (DC), Hypertension (DC), Opioid Safety Discharge Attestations Time Spent in Discharge Care*: less than 30 min Specific Discharge Activities: educating patient, educating and/or supporting family/caregiver, discussing with disability case manager/social workers/dc planners, documenting/other paperwork and evaluating patient/reviewing data Status at Discharge: Cognitive status at discharge: cognitively intact , Behavioral status at discharge: cooperative , Functional status at discharge: independent ambulation Overall status at discharge: patient is back to baseline Quality Metrics Clinical Quality Measures During this hospital stay, did patient experience: None Coding Level of Care Code Acute Chg FW DC note Diagnoses Atypical chest pain R07.89 Hypertension I10 Hypertension type: essential hypertension Chronic steroid use Polymyalgia rheumatica M35.3 Complex sleep apnea syndrome G47.31
== END 2021-01-15 13:30 | disposition home or self-care (01) | DRG 305 ==
LOC: ER 01-12 03:11 → MEDSURG 01-12 03:36
PROVIDERS: Student in an Organized Health Care Education/Training Program; Admitting Provider Internal Medicine; Emergency Provider Emergency Medicine; PCP Family Medicine; Visit Provider Internal Medicine
DX: I16.0 Hypertensive urgency (principal); I10 Essential (primary) hypertension; J45.909 Unspecified asthma, uncomplicated; M35.3 Polymyalgia rheumatica; G47.33 Obstructive sleep apnea (adult) (pediatric); F41.9 Anxiety disorder, unspecified; K21.9 Gastro-esophageal reflux disease without esophagitis; Z79.52 Long term (current) use of systemic steroids; F32.9 Major depressive disorder, single episode, unspecified; K76.0 Fatty (change of) liver, not elsewhere classified; R07.89 Other chest pain
CPT/HCPCS: 36415; 70450; 71045; 71275; 78452; 80053; 80061; 83880; 84443; 84484; 85025; 85610; 87426; 93005; 93017; 93306; 94640; 94660; 96372; 96374; 96375; 99285; A9500; G0378; J1170; J1650; J2270; J2405; J2785; J3490; J7512; J8597; Q9967

== ENCOUNTER 2021-01-25 20:18 | Emergency (ER) | payer OTHER, SELFPAY ==
[2021-01-25 20:37] VITALS: BP 142/86; PULSE 81; RESP 16; TEMP 36.7; O2SAT 95; BMI 34.0
--- NOTE | 2021-01-25 20:49 | ED_ITS ---
HPI - Eye Problem General: Chief complaint: Eye Problems Stated complaint: SOMETHING IN L EYE Time Seen by Provider: 01/25/21 20:42 Source: patient Mode of arrival: ambulatory Limitations: no limitations History of Present Illness: HPI Narrative: 55-year-old male states that he was grinding metal today and he has pain in his bilateral eyes. He states pain is sharp in nature and worse in the left eye. He does have redness to the left eye. He denies any other injuries. He states that the pain is worse with bright lights. Associated symptoms: Denies fever(s), headache(s), nausea, neck pain or vomiting Review of Systems Const: Denies: fever(s), chills, body aches or change in appetite Eyes: Reports: eye discomfort; Denies: blurry vision ENMT: Denies: throat pain or dental pain Card: Denies: chest pain Resp: Denies: dyspnea GI: Denies: abdominal pain, nausea, vomiting or diarrhea : Denies: dysuria Musc: Denies: neck pain or back pain Skin/Breast: Denies: rash Neuro: Denies: headache(s) Psych: Denies: depression Markus/Lymph: Denies: easy bruising All/Imm: Denies: urticaria PFSH ED PFSH: Medical History (Updated 01/25/21 @ 20:57 by Sorin Coello MD) Asthma Chest pain Chronic steroid use High risk medication use HTN (hypertension) Hypertension Immunization counseling Major depressive disorder Polymyalgia rheumatica Surgical History H/O esophagogastroduodenoscopy H/O hand surgery H/O knee surgery History of appendectomy History of nasal surgery History of umbilical hernia repair (01/26/20) Status post colonoscopy Family History Father Lung disease Asthma Denies family history of Diabetes Clotting disorder Dementia Chronic kidney disease (CKD) Social History Smoking and tobacco status: never smoked Alcohol intake: never Lives independently: Yes Household members: spouse Marital status: Current occupational status: employed Current occupational exposures/hazards: Yes History of recent travel: No Current gender identity: Male Physical Exam Const: COMMON NORMALS: no acute distress, patient oriented x3 and healthy appearing HENMT: COMMON NORMALS: normocephalic and atraumatic HEAD & SCALP: normocephalic and atraumatic Eye: COMMON NORMALS: Equal, round and reactive pupils present and EOMs intact bilaterally PUPIL: Yes Equal, round and reactive pupils present OTHER: multiple small pieces of metal in bilateral eyes Neck/C-Spine: COMMON NORMALS: full ROM and supple Chest: COMMONS NORMALS: normal inspection of the chest and normal palpation of entire chest wall Resp: COMMON NORMALS: normal respiratory effort, No retractions, No use of accessory muscles and clear to auscultation bilaterally AUSCULTATION: clear to auscultation bilaterally Cardio: COMMON NORMALS: regular rate, regular rhythm and No murmurs present (Cardio) RATE: regular rate RHYTHM: regular rhythm GI: COMMON NORMALS: Normal to inspection, nondistended, normoactive bowel jhon nds present, Soft to palpation, non-tender and no masses PALPATION: Yes Soft to palpation Extremity: COMMON NORMALS: normal to inspection and full ROM Neuro: COMMON NORMALS: patient oriented x3, moves all extremities and no focal motor deficits Psych: COMMON NORMALS: mental status grossly normal, Normal thought process present and cooperative THOUGHT PROCESS: Normal thought process present Skin: COMMON NORMALS: no rashes or lesions noted and no wounds GENERAL SKIN EXAM: no rashes or lesions noted Course Vital Signs: Vital signs: Vital Signs Temperature 98.1 F 01/25/21 20:37 Pulse Rate 81 01/25/21 20:37 Respiratory Rate 16 01/25/21 20:37 Blood Pressure 142/86 01/25/21 20:37 Pulse Oximetry 95 01/25/21 20:37 MDM - Eye Problem MDM Narrative: Medical decision making narrative: Patient presents here with multiple foreign bodies in bilateral eyes. I spoke to Dr. Smith and let patient see him 730 tomorrow. Not feel comfortable using a bur drill since he had so many small pieces of metal. Will place him on antibiotics as well. Discharge Plan Discharge Patient Disposition: Home Clinical Impression: Foreign body, eye Qualifiers: Encounter type: initial encounter Laterality: unspecified laterality Qualified Code(s): T15.90XA - Foreign body on external eye, part unspecified, unspecified eye, initial encounter Condition: Stable Prescriptions: New erythromycin 5 mg/gram (0.5 %) ointment 1 applic ophthalmic (eye) Q8H Qty: 1 RF: 0 No Action ergocalciferol (vitamin D2) 1,250 mcg (50,000 unit) capsule 1,250 mcg PO .weekly Qty: 15 RF: 1 methotrexate sodium 2.5 mg tablet 20 mg PO .Q7days Qty: 40 RF: 4 prednisone 5 mg tablet 5 mg PO DAILY Qty: 30 RF: 4 omeprazole 20 mg capsule,delayed release(DR/EC) 20 mg PO DAILY RF: 0 hydrochlorothiazide 25 mg Tablet 25 mg PO DAILY RF: 0 albuterol sulfate 90 mcg/actuation Hfa Aerosol Inhaler 2 puff INHALATION Q4H PRN (Reason: Shortness Of Breath) RF: 0 amlodipine 2.5 mg tablet 2.5 mg PO DAILY Qty: 30 RF: 2 metoprolol tartrate 100 mg Tablet 100 mg PO BID RF: 0 citalopram 20 mg Tablet 20 mg PO DAILY RF: 0 losartan 50 mg tablet 100 mg PO DAILY RF: 0 Discharge Orders: Discharge ED (Routine); Ordered 01/25/21 Ordered By: Sorin Coello Referrals: Ash Smith MD [Physician] - 1-3 days Walker Sarabia MD [Primary Care Provider] - Discharge Diet: Advance as tolerated Discharge Activity: Resume usual activity Patient Instructions: Foreign Body - Eye Coding Level of Care Code ED Education Program Coordinator for Edilg Fwd Exam Comprehensive
[2021-01-25] MEDS: naproxen 500 mg Tablet PO (21:02)
[2021-01-25 21:09] VITALS: RESP 16; TEMP 36.7; O2SAT 95
== END 2021-01-25 21:10 | disposition home or self-care (01) ==
PROVIDERS: Emergency Provider Emergency Medicine; PCP Family Medicine
DX: T15.90XA Foreign body on external eye, part unspecified, unspecified eye, initial encounter (principal); I10 Essential (primary) hypertension; X58.XXXA Exposure to other specified factors, initial encounter
CPT/HCPCS: 99282

== ENCOUNTER → 2021-02-14 15:46 | Outpatient (BNVA) | payer OTHER, SELFPAY | PROVIDERS: PCP Family Medicine; Visit Provider Internal Medicine Rheumatology | DX: M35.3 Polymyalgia rheumatica (principal); Z79.899 Other long term (current) drug therapy; Z79.52 Long term (current) use of systemic steroids | CPT/HCPCS: 99214 ==

== ENCOUNTER 2021-04-19 04:38 | Outpatient (CLI) | payer OTHER, SELFPAY ==
[2021-04-19 05:02] VITALS: BMI 34.0
[2021-04-19 05:03] VITALS: BP 138/90; PULSE 64; RESP 19; TEMP 36.9; O2SAT 95
[2021-04-19 08:00] VITALS: BP 161/97; PULSE 57; O2SAT 95
--- NOTE | 2021-04-19 08:12 | PC.NURSE ---
pt left by pov.
--- NOTE | 2021-04-26 14:56 | DCPLANNER ---
manufacturing operations manager had message that patient received the monoclonal antibody infusion. manufacturing operations manager called phone number [phone], to check on patient after receiving the infusion. manufacturing operations manager unable to speak with patient at this time, a voicemail was left for patient to return manager case management phone call.
== END 2021-04-19 04:39 | disposition home or self-care (01) ==
LOC: ER 04:40
PROVIDERS: PCP Family Medicine; Visit Provider Physician Assistant
DX: U07.1 COVID-19 (principal)

== ENCOUNTER 2021-07-27 14:52 | Outpatient (CLI) | payer OTHER, SELFPAY ==
[2021-07-27 15:51] LABS: Basophils % 0.7 %; Eosinophils # 0.3 10^3/uL (0.0-0.8); Eosinophils % 5.4 %; Hematocrit 37.1 % (42.0-52.0); Hemoglobin 11.9 g/dL (11.7-16.6); Lymphocytes % 16.7 %; Mean Corpuscular HGB Conc 32.1 g/dL (30.0-36.0); Mean Corpuscular Hemoglobin 29.8 pg (28.0-34.0); Mean Platelet Volume 9.9 fL (7.4-10.4); Monocytes # 0.6 10^3/uL (0.2-0.9); Monocytes % 9.4 %; Neutrophils # 4.01 10^3/uL (1.8-7.7); Neutrophils % 67.6 %; Nucleated Red Blood Cells % 0 %; Platelet Count 267 10^3/cmm (130-400); Red Blood Count 3.99 10^6/uL (4.1-5.3); Red Cell Distribution Width 14.6 % (12.1-15.1); White Blood Count 5.9 10^3/uL (4.0-10.0)
[2021-07-27 16:17] LABS: Alanine Aminotransferase 32 U/L (0-41); Albumin Level 3.9 g/dL (3.5-5.2); Alkaline Phosphatase 37 IU/L (40-130); Aspartate Amino Transferase 26 U/L (0-40); C Reactive Protein 5.3 mg/L (0.0-4.9); Globulin 2.5 g/dL (1.3-4.6); Glomerular Filtration Rate 78.2 mL/min (90-130); Total Bilirubin 0.3 mg/dL (0.15-1.2); Total Protein 6.4 g/dL (6.6-8.7)
== END 2021-07-27 14:53 | disposition home or self-care (01) ==
LOC: LAB 14:58
PROVIDERS: PCP Family Medicine; Visit Provider Internal Medicine Rheumatology
DX: Z79.899 Other long term (current) drug therapy (principal); M19.90 Unspecified osteoarthritis, unspecified site; M35.3 Polymyalgia rheumatica
CPT/HCPCS: 36415; 80076; 82565; 85025; 86140

== ENCOUNTER 2021-08-07 19:42 | Emergency (ER) | payer OTHER, SELFPAY ==
[2021-08-07 19:49] VITALS: BP 151/114; PULSE 104; RESP 24; TEMP 36.4; O2SAT 96; BMI 34.0
--- NOTE | 2021-08-07 20:18 | ECG_ITS ---
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 Measurements Intervals [place] Rate: 102 P: 32 WI: 198 QRS: -9 QRSD: 99 T: 48 QT: 345 QTc: 451 Interpretive Statements SINUS TACHYCARDIA INCOMPLETE RIGHT BUNDLE BRANCH BLOCK [90+ ms QRS DURATION, TERMINAL R IN V1/V2, 40+ ms S IN I/aVL/V4/V5/V6] ABNORMAL RHYTHM ECG Compared to ECG 01/13/2021 20:30:45 Incomplete right bundle-branch block now present Sinus rhythm no longer present Electronically Signed On 08-07-2021 21:59:23 WOOD CAR BUILDER by Manjit Alexis M.D. [email or web address]
--- NOTE | 2021-08-07 20:18 | XRR_ITS ---
PROCEDURE INFORMATION: Exam: XR Chest Exam date and time: 08/07/2021 8:18 PM Age: 55 years old Clinical indication: Pain; Chest pressure; Additional info: Chest pain TECHNIQUE: Imaging protocol: XR of the chest. Views: 1 view. COMPARISON: CR XR chest 1V portable [id number] 01/13/2021 1:47 PM FINDINGS: Lungs: Unremarkable. No consolidation. Pleural spaces: Unremarkable. No pleural effusion. No pneumothorax. Heart/Mediastinum: Cardiomegaly. Bones/joints: Unremarkable. XR/XR chest 1V portable [id number] IMPRESSION: Cardiomegaly. Radiation Dose CTDIVOL = (mGy): DLP = (mGy-cm)
[2021-08-07 20:35] LABS: Basophils % 0.7 %; Eosinophils # 0.2 10^3/uL (0.0-0.8); Eosinophils % 2.8 %; Hematocrit 37.3 % (42.0-52.0); Hemoglobin 12.5 g/dL (11.7-16.6); Lymphocytes # 2.2 10^3/uL (0.8-4.8); Lymphocytes % 35.3 %; Mean Corpuscular HGB Conc 33.5 g/dL (30.0-36.0); Mean Corpuscular Hemoglobin 29.8 pg (28.0-34.0); Mean Corpuscular Volume 88.8 fl (80-94); Mean Platelet Volume 9.7 fL (7.4-10.4); Monocytes # 0.7 10^3/uL (0.2-0.9); Monocytes % 11.5 %; Neutrophils # 3.05 10^3/uL (1.8-7.7); Neutrophils % 49.5 %; Nucleated Red Blood Cells % 0 %; Platelet Count 319 10^3/cmm (130-400); Red Cell Distribution Width 13.7 % (12.1-15.1); White Blood Count 6.2 10^3/uL (4.0-10.0)
[2021-08-07 20:51] VITALS: BP 154/91; PULSE 100; RESP 22; O2SAT 95
[2021-08-07 21:01] LABS: Troponin(5th) Baseline 11 ng/L (0-15)
[2021-08-07 21:02] LABS: Alanine Aminotransferase 31 U/L (0-41); Alkaline Phosphatase 36 IU/L (40-130); Anion Gap 19.3 (5-19); Aspartate Amino Transferase 22 U/L (0-40); Blood Urea Nitrogen 13 mg/dL (6-20); Calcium 9.8 mg/dL (8.5-10.5); Carbon Dioxide 23 mmol/L (22-29); Chloride 99 mmol/L (98-107); Globulin 2.9 g/dL (1.3-4.6); Glucose 114 mg/dL (65-115); Osmolality Calculated 287 mOsm/kg (285-295); Potassium 3.3 mmol/L (3.5-5.1); Sodium 138 mmol/L (136-145); Total Bilirubin 0.2 mg/dL (0.15-1.2); Total Protein 6.9 g/dL (6.6-8.7)
--- NOTE | 2021-08-07 21:03 | W.ED.CHESTPA ---
HPI - Chest Pain General: Chief Complaint: Chest Pain Stated Complaint: cp, high blood pressure Time Seen by Provider: 08/07/21 21:03 History of Present Illness: HPI narrative: Mr. Lowe is a 55-year-old gentleman with significant past medical history of obesity and hypertension who presents emerged department due to chest discomfort. Symptom onset was gradual 3 to 4 days ago. He notes what he describes as a reflux type feeling in his chest which has not gone away since onset. There is mild associated generalized malaise and nausea. He felt fatigue today. Symptoms are occasionally worse with exertion but not reliably. No changes with position or eating. Overall the intensity symptoms moderate to severe. Denies frequent history. No cardiac history. Does have a history of Covid. No other specific known exacerbating or relieving factors identified. Review of Systems General: Reports: 10 or more systems reviewed and unremarkable except in HPI and below PFSH ED PFSH: Medical History (Updated 08/07/21 @ 23:39 by Timothy Marrero MD) Asthma Chest pain Chronic steroid use High risk medication use HTN (hypertension) Hypertension Immunization counseling Major depressive disorder Polymyalgia rheumatica Surgical History H/O esophagogastroduodenoscopy H/O hand surgery H/O knee surgery History of appendectomy History of nasal surgery History of umbilical hernia repair (01/26/20) Status post colonoscopy Family History Father Lung disease Asthma Denies family history of Diabetes Clotting disorder Dementia Chronic kidney disease (CKD) Social History Smoking and tobacco status: never smoked Alcohol intake: never Lives independently: Yes Household members: spouse Marital status: Current occupational status: employed Current occupational exposures/hazards: Yes History of recent travel: No Current gender identity: Male Physical Exam Narrative: EXAM NARRATIVE: GENERAL/CONSTITUTIONAL - well-appearing. No acute distress. Eyes - PERRL, no conjunctival injection ENMT - Atraumatic external nose and ears. Moist mucous membranes NECK - supple. trachea midline CARDIOVASCULAR - regular rate and rhythm. Normal peripheral perfusion. Chest pain not reproducible with palpation of his exam RESPIRATORY -clear to auscultation bilaterally. No retractions or accessory muscle use. ABDOMEN/GI -mild epigastric tenderness palpation. MSK - Extremities without obvious deformity or tenderness to palpation SKIN - Warm, Dry NEURO - alert and appropriately oriented. Moves all extremities equally. Course ED course: - Patient was seen and evaluated by me at bedside - Patient placed on cardiac monitors, IV access obtained - Initial evaluation notable for no acute distress, nontoxic appearance. -Symptom treatment ordered - Labs notable for no leukocytosis. No significant metabolic abnormality to explain patient's symptoms. Delta troponin negative. - Imaging notable for no acute finding to explain patient's symptoms. Patient described in history of some vague neurologic lightheadedness/dizziness, NIHSS [address] head warranted. - Upon serial reexamination after treatment the patient was somewhat improved - Based on patient history, evaluation, labs, and imaging as interpreted the most likely cause of the patient's condition is unclear, I discussed possible etiologies and HEART score risk stratification. Patient comfortable with outpatient follow-up - The results of ED evaluation were discussed with the patient including prescriptions and/or symptomatic cares (if applicable) including appropriate and responsible use, followup plan, and return precautions. The patient verbalized understanding and felt safe for discharge. - Patient discharged in satisfactory condition. Vital Signs: Vital signs: Vital Signs Temperature 97.5 F L 08/07/21 19:49 Pulse Rate 78 08/08/21 00:45 Respiratory Rate 18 08/08/21 00:45 Blood Pressure 148/97 08/08/21 00:45 Pulse Oximetry 99 08/08/21 00:45 MDM - Chest Pain Medical Records: Attestation: I reviewed the patient's medical records. Lab Data: Attestation: I reviewed the patient's lab results. Labs: Lab Results 08/07/21 08/07/21 08/07/21 20:02 20:02 20:02 WBC 6.2 10^3/uL 10^3/ uL (4.0-10.0) RBC 4.20 10^6/uL 10^6 /uL (4.1-5.3) Hgb 12.5 g/dL g/dL (11.7-16.6) Hct 37.3 % L % (42.0-52.0) MCV 88.8 fl fl (80-94) MCH 29.8 pg pg (28.0-34.0) MCHC 33.5 g/dL g/dL (30.0-36.0) RDW 13.7 % % (12.1-15.1) Plt Count 319 10^3/cmm 10^3 /cmm (130-400) MPV 9.7 fL fL (7.4-10.4) Neut % (Auto) 49.5 % % Lymph % (Auto) 35.3 % % [place] % (Auto) 11.5 % % Eos % (Auto) 2.8 % % Baso % (Auto) 0.7 % % Neut # (Auto) 3.05 10^3/uL 10^3 /uL (1.8-7.7) Lymph # (Auto) 2.2 10^3/uL 10^3/ uL (0.8-4.8) [place] # (Auto) 0.7 10^3/uL 10^3/ uL (0.2-0.9) Eos # (Auto) 0.2 10^3/uL 10^3/ uL (0.0-0.8) Baso # (Auto) 0.0 10^3/uL 10^3/ uL (0.0-0.1) Nucleated RBC % (a uto) 0 % % Nucleated RBCs # 0.0 /100WBC /100W BC Sodium 138 mmol/L mmol/L (136-145) Potassium 3.3 mmol/L L mmol /L (3.5-5.1) Chloride 99 mmol/L mmol/L (98-107) Carbon Dioxide 23 mmol/L mmol/L (22-29) Anion Gap 19.3 H (5-19) BUN 13 mg/dL mg/dL (6-20) Creatinine 1.1 mg/dL mg/dL (0.7-1.2) GFR Calculation 70.0 mL/min L mL/ min (90-130) Glucose 114 mg/dL mg/dL (65-115) Calculated Osmolal ity 287 mOsm/kg mOsm/ kg (285-295) Calcium 9.8 mg/dL mg/dL (8.5-10.5) Total Bilirubin 0.2 mg/dL mg/dL (0.15-1.2) AST 22 U/L U/L (0-40) ALT 31 U/L U/L (0-41) Alkaline Phosphata se 36 IU/L L IU/L (40-130) Troponin T Baselin e 11 ng/L ng/L (0-15) Troponin T 120 Min sergey Delta Troponin T Total Protein 6.9 g/dL g/dL (6.6-8.7) Albumin 4.0 g/dL g/dL (3.5-5.2) Globulin 2.9 g/dL g/dL (1.3-4.6) Lipase Urine Color Urine Appearance Urine pH Ur Specific Gravit y Urine Protein Urine Glucose (UA) Urine Ketones Urine Blood Urine Nitrate Urine Bilirubin Urine Urobilinogen Ur Leukocyte Alexandra ase Influenza Type A A g Influenza Type B A g SARS-CoV-2 Ag (Rap id) 08/07/21 08/07/21 08/07/21 22:00 22:20 22:20 WBC RBC Hgb Hct MCV MCH MCHC RDW Plt Count MPV Neut % (Auto) Lymph % (Auto) [place] % (Auto) Eos % (Auto) Baso % (Auto) Neut # (Auto) Lymph # (Auto) [place] # (Auto) Eos # (Auto) Baso # (Auto) Nucleated RBC % (a uto) Nucleated RBCs # Sodium Potassium Chloride Carbon Dioxide Anion Gap BUN Creatinine GFR Calculation Glucose Calculated Osmolal ity Calcium Total Bilirubin AST ALT Alkaline Phosphata se Troponin T Baselin e Troponin T 120 Min sergey 13.55 ng/L ng/L (0-15) Delta Troponin T 2.55 ABS# ABS# (0-10) Total Protein Albumin Globulin Lipase 36 U/L U/L (13-60) Urine Color Urine Appearance Urine pH Ur Specific Gravit y Urine Protein Urine Glucose (UA) Urine Ketones Urine Blood Urine Nitrate Urine Bilirubin Urine Urobilinogen Ur Leukocyte Alexandra ase Influenza Type A A g Influenza Type B A g SARS-CoV-2 Ag (Rap id) Negative (Negative) 08/07/21 08/07/21 23:00 23:00 WBC RBC Hgb Hct MCV MCH MCHC RDW Plt Count MPV Neut % (Auto) Lymph % (Auto) [place] % (Auto) Eos % (Auto) Baso % (Auto) Neut # (Auto) Lymph # (Auto) [place] # (Auto) Eos # (Auto) Baso # (Auto) Nucleated RBC % (a uto) Nucleated RBCs # Sodium Potassium Chloride Carbon Dioxide Anion Gap BUN Creatinine GFR Calculation Glucose Calculated Osmolal ity Calcium Total Bilirubin AST ALT Alkaline Phosphata se Troponin T Baselin e Troponin T 120 Min sergey Delta Troponin T Total Protein Albumin Globulin Lipase Urine Color Straw (Yellow) Urine Appearance Hazy A (CLEAR) Urine pH 6.5 (5-7) Ur Specific Gravit y 1.020 (1.005-1.030) Urine Protein Neg (Negative) Urine Glucose (UA) Norm (Normal) Urine Ketones Negative (Negative) Urine Blood Neg (Negative) Urine Nitrate Negative (Negative) Urine Bilirubin Neg (Negative) Urine Urobilinogen Norm mg/dL mg/dL (Negative) Ur Leukocyte Alexandra ase Negative (Negative) Influenza Type A A g Negative (Negative) Influenza Type B A g Negative (Negative) SARS-CoV-2 Ag (Rap id) EKG Data^: EKG 1: Attestation: I personally reviewed and interpreted this EKG as follows: EKG interpretation date: 08/07/21 EKG interpretation time: 19:53 Interpretation: Twelve-lead EKG shows a regular rhythm at a rate of 102. MS interval 198, QRS duration 99, QTc 451. Normal axis. Interpretation: Sinus rhythm. EKG 2: Attestation: I personally reviewed and interpreted this EKG as follows: EKG interpretation date: 08/07/21 EKG interpretation time: 20:55 Interpretation: Twelve-lead EKG shows a regular rhythm at a rate of 92. MS interval 191, QRS duration 101, QTc 442. Normal axis. Interpretation: Sinus rhythm Discharge Plan Discharge Patient Disposition: Home Clinical Impression: Chest pain Condition: Stable Prescriptions: No Action ergocalciferol (vitamin D2) 1,250 mcg (50,000 unit) capsule 1,250 mcg PO .weekly Qty: 15 RF: 1 methotrexate sodium 2.5 mg tablet 20 mg PO .Q7days Qty: 40 RF: 4 folic acid 1 mg tablet 1 mg PO DAILY RF: 0 prednisone 20 mg tablet See Rx Instructions PO .COMPLEX PRN (Reason: joint pain flare) Qty: 60 RF: 0 prednisone 5 mg tablet 5 mg PO DAILY Qty: 30 RF: 4 omeprazole 20 mg capsule,delayed release(DR/EC) 20 mg PO DAILY RF: 0 hydrochlorothiazide 25 mg Tablet 25 mg PO DAILY RF: 0 albuterol sulfate 90 mcg/actuation Hfa Aerosol Inhaler 2 puff INHALATION Q4H PRN (Reason: Shortness Of Breath) RF: 0 amlodipine 2.5 mg tablet 2.5 mg PO DAILY Qty: 30 RF: 2 metoprolol tartrate 100 mg Tablet 100 mg PO BID RF: 0 citalopram 20 mg Tablet 20 mg PO DAILY RF: 0 losartan 50 mg tablet 100 mg PO DAILY RF: 0 erythromycin 5 mg/gram (0.5 %) ointment 1 applic ophthalmic (eye) Q8H Qty: 1 RF: 0 Discharge Orders: Discharge ED (Routine); Ordered 08/08/21 Ordered By: Jadiel Martinez Referrals: Walker Sarabia MD [Primary Care Provider] - Discharge Diet: Advance as tolerated and Clear Liquid Discharge Activity: Increase activity as tolerated Patient Instructions: Chest Pain (ED), Contusion in Adults (ED), Opioid Safety Activity Restrictions/Additional Instructions: Thank you for visiting the emergency department. You were seen and evaluated for chest pain. The exact cause of your symptoms is unclear, and acid and burning sensation may be more typical of a gastroenterologic cause of her symptoms however other origins that are not appreciated on exam in the emergency department are still possible. Please follow-up with a teen counselor and primary care physician. Please return to the emergency department for worsening symptoms or anything else that you are concerned about and feel needs emergency department evaluation. Coding Level of Care Code ED Scroll Machine Operator for Salvador Obregon
--- NOTE | 2021-08-07 21:50 | CTR_ITS ---
PROCEDURE INFORMATION: Exam: CT Head Without Contrast Exam date and time: 08/07/2021 9:50 PM Age: 55 years old Clinical indication: Injury or trauma; Fall; Blunt trauma (contusions or hematomas); Additional info: Fall, head strike, loc TECHNIQUE: Imaging protocol: Computed tomography of the head without contrast. Radiation optimization: All CT scans at this facility use at least one of these dose optimization techniques: automated exposure control; mA and/or kV adjustment per patient size (includes targeted exams where dose is matched to clinical indication); or iterative reconstruction. COMPARISON: CT head wo con* [id number] 01/12/2021 1:08 AM RADIATION DOSE METRICS: Total DLP (mGy-cm): 978.95 FINDINGS: Brain: Normal. No hemorrhage. Unremarkable white matter. No mass effect. Cerebral ventricles: No ventriculomegaly. Paranasal sinuses: Paranasal sinus opacifications. Mastoid air cells: Visualized mastoid air cells are well aerated. Bones/joints: Unremarkable. No acute fracture. Soft tissues: Unremarkable. CT/CT head wo con* [id number] IMPRESSION: Negative for intracranial hemorrhage or mass effect. Radiation Dose CTDIVOL = (mGy): DLP = 978.95 (mGy-cm)
[2021-08-07] MEDS: sodium chloride 0.9% 1,000 ML 999 ML IV (21:51)
[2021-08-07] MEDS: ondansetron 2 mg/ML SDV 2 mL 4 MG IVP (21:51)
[2021-08-07] MEDS: lidocaine 2% viscous 15 ML, aluminum-mag hydrox-simethicon 30 ML, sucralfate oral liq 1 GM PO (21:51)
--- NOTE | 2021-08-07 22:18 | ECG_ITS ---
[facility] Test Date: 2021-08-07 Pat Name: Madi Lowe Department: Room: Gender: Male Manager Scheduling: : 1965 Requested By: Jadiel Martinez Order Number: [id number] Marlon MD: Manjit Alexis M.D. Measurements Intervals [place] Rate: 92 P: 32 MI: 191 QRS: 11 QRSD: 101 T: 51 QT: 356 QTc: 442 Interpretive Statements SINUS RHYTHM WITH OCCASIONAL SUPRAVENTRICULAR PREMATURE COMPLEXES POSSIBLE RIGHT VENTRICULAR CONDUCTION DELAY [RSR (QR) IN V1/V2] Compared to ECG 08/07/2021 19:47:34 Sinus tachycardia no longer present Incomplete right bundle-branch block no longer present Electronically Signed On 08-08-2021 22:49:04 BILLET CUTTER by Manjit Alexis M.D. [id number]
[2021-08-07 22:31] LABS: SARS Covid-2 Antigen Negative (Negative)
--- NOTE | 2021-08-07 22:46 | CTR_ITS ---
PROCEDURE INFORMATION: Exam: CT Abdomen And Pelvis With Contrast Exam date and time: 08/07/2021 10:46 PM Age: 55 years old Clinical indication: Abdominal pain; Prior surgery; Surgery type: Hernia repair. Appy. ; Patient HX: Epigastric pain TECHNIQUE: Imaging protocol: Computed tomography of the abdomen and pelvis with contrast. Radiation optimization: All CT scans at this facility use at least one of these dose optimization techniques: automated exposure control; mA and/or kV adjustment per patient size (includes targeted exams where dose is matched to clinical indication); or iterative reconstruction. Contrast material: OMNI 300; Contrast volume: 95 ml; Contrast route: INTRAVENOUS (IV); COMPARISON: CT angio chest PE protcl [id number] 01/12/2021 2:08 AM RADIATION DOSE METRICS: Total DLP (mGy-cm): 1769.03 FINDINGS: Diaphragm: Large hiatal hernia. Liver: Diffuse fatty infiltration of the liver. Gallbladder and bile ducts: Contracted gallbladder. The bile ducts are normal. Pancreas: Normal. No ductal dilation. Spleen: Normal. No splenomegaly. Adrenal glands: Normal. No mass. Kidneys and ureters: 3 mm nonobstructing left renal calculus. Fluid density left renal cyst, Hounsfield units less than 20. Hypodensity in the left kidney is too small to characterize but is most likely a cyst. No follow-up imaging recommended. The right kidney is normal. No ureteral calculus or hydronephrosis. Stomach and bowel: Diverticulosis of the left colon. No diverticulitis. Appendix: The appendix is not visualized. No secondary signs of appendicitis. Intraperitoneal space: Unremarkable. No free air. No significant fluid collection. Vasculature: Arterial calcifications. No aneurysm. Lymph nodes: Unremarkable. No enlarged lymph nodes. Urinary bladder: Unremarkable as visualized. Reproductive: Unremarkable as visualized. Bones/joints: Unremarkable. No acute fracture. Soft tissues: 3.0 cm fat containing left periumbilical hernia with mild stranding. Small fat containing inguinal hernias. CT/CT abdomen pelvis w con* [id number] IMPRESSION: 1. 3.0 cm fat containing left periumbilical hernia with mild fat stranding. 2. Otherwise, no acute abnormality identified in the abdomen or pelvis. 3. Diverticulosis of the colon. 4. Fatty infiltration of the liver. 5. Left renal calculus. COMMENTS: Consistent with the [employer]'s Incidental Findings Committee white paper (J Am Wally Radiol 2018): Any incidental renal lesion less than 1 cm or classified as too small to characterize, or any incidental cystic renal lesion characterized as simple-appearing, is likely benign. No follow-up imaging is recommended for these lesions per consensus recommendations based on imaging criteria. Radiation Dose CTDIVOL = (mGy): DLP = 1769.03 (mGy-cm)
[2021-08-07] MEDS: iohexol 300 mg/mL 100 mL Btl IV (23:01)
[2021-08-07 23:07] LABS: Lipase 36 U/L (13-60)
[2021-08-07 23:10] LABS: Troponin 5 2HR 13.55 ng/L (0-15); Troponin 5 2HR Delta 2.55 ABS# (0-10)
[2021-08-07 23:16] LABS: Add Urine Microscopic? NO; Charge for UA Resulting for Rev
[2021-08-07 23:25] LABS: Bilirubin Urine Neg (Negative); Blood Urine Neg (Negative); Glucose Urine UA Norm (Normal); Ketones Urine Negative (Negative); Leukocyte Esterase Urine Negative (Negative); Nitrate Urine Negative (Negative); Protein Urine Neg (Negative); Urine Appearance Hazy (CLEAR); Urine Color Straw (Yellow); Urobilinogen Urine Norm (Negative); pH Urine 6.5 (5-7)
[2021-08-07 23:40] VITALS: RESP 18
[2021-08-07] MEDS: potassium chloride oral liq 20 mEq/15 mL UDC PO (23:40)
[2021-08-07] MEDS: morphine 4 mg/mL SDV 1 mL IVP (23:40)
[2021-08-07] MEDS: pantoprazole 40 mg SDV IVP (23:40)
[2021-08-07 23:45] VITALS: BP 143/97; PULSE 92; RESP 22; O2SAT 97
[2021-08-07 23:55] LABS: Influenza A by IFA Negative (Negative); Influenza B by IFA Negative (Negative)
[2021-08-07] MEDS: labetalol 5 mg/mL SDV 20mL 10 MG IVP (23:58)
[2021-08-08 00:45] VITALS: BP 148/97; PULSE 78; RESP 18; O2SAT 99
== END 2021-08-08 00:45 | disposition home or self-care (01) ==
PROVIDERS: Emergency Medicine; Emergency Provider Emergency Medicine; PCP Family Medicine
DX: R07.9 Chest pain, unspecified (principal); I10 Essential (primary) hypertension; Z20.822 Contact with and (suspected) exposure to COVID-19
CPT/HCPCS: 70450; 71045; 74177; 80053; 81003; 83690; 84484; 85025; 87426; 87804; 93005; 96361; 96374; 96375; 99284; C9113; J2270; J2405; J3490; J7030; Q9967

== ENCOUNTER → 2022-04-05 08:55 | Outpatient (BNVA) | payer OTHER, SELFPAY | PROVIDERS: PCP Family Medicine; Visit Provider Nurse Practitioner Family | DX: J01.90 Acute sinusitis, unspecified (principal) | CPT/HCPCS: 87426 ==

== ENCOUNTER 2022-04-16 14:19 | Emergency (ER) | payer OTHER, SELFPAY ==
--- NOTE | 2022-04-16 14:21 | XR_ITS ---
WS: [id number] Exam: XR chest 1V portable [id number] Date/Time of Exam: 04/16/2022 2:21 PM Reason For Exam: dyspnea/cough Comparison 08/07/2021. The lungs are fully expanded and clear. Heart size upper limits normal. No pleural effusions. The med iastinal is normal in contour. Bony structures are intact. XR/XR chest 1V portable [id number] IMPRESSION: 1. No acute cardiopulmonary finding. No change.
--- NOTE | 2022-04-16 14:21 | ECG_ITS ---
[facility] Test Date: 2022-04-16 Pat Name: Madi Lowe Department: Room: Gender: Male Die Developer: : 1965 Requested By: Horace Phillip Order Number: [id number] Marlon MD: Thuy Gallegos M.D. Measurements Intervals [place] Rate: 74 P: 7 FL: 195 QRS: 8 QRSD: 106 T: 50 QT: 408 QTc: 455 Interpretive Statements SINUS RHYTHM POSSIBLE RIGHT VENTRICULAR CONDUCTION DELAY [RSR (QR) IN V1/V2] NONSPECIFIC T-WAVE ABNORMALITY Compared to ECG 08/07/2021 20:49:54 T-wave abnormality now present Electronically Signed On 04-16-2022 21:32:47 CDT by Thuy Gallegos M.D. [id number]
[2022-04-16 14:24] VITALS: BP 136/80; PULSE 80; RESP 26; TEMP 36.8; O2SAT 96; BMI 36.1
[2022-04-16 14:36] LABS: Basophils % 0.4 %; Eosinophils % 0.4 %; Hematocrit 38.8 % (42.0-52.0); Hemoglobin 13.2 g/dL (11.7-16.6); Lymphocytes # 0.8 10^3/uL (0.8-4.8); Lymphocytes % 16.8 %; Mean Corpuscular Hemoglobin 30.8 pg (28.0-34.0); Mean Corpuscular Volume 90.7 fl (80-94); Monocytes # 0.4 10^3/uL (0.2-0.9); Monocytes % 8.4 %; Neutrophils # 3.67 10^3/uL (1.8-7.7); Neutrophils % 73.6 %; Nucleated Red Blood Cells % 0 %; Platelet Count 286 10^3/cmm (130-400); Red Blood Count 4.28 10^6/uL (4.1-5.3); Red Cell Distribution Width 14.4 % (12.1-15.1)
[2022-04-16] MEDS: sodium chloride 0.9% 1,000 ML 999 ML IV (14:38)
--- NOTE | 2022-04-16 14:43 | ED_ITS ---
HPI - SOB/Dyspnea General: Chief Complaint: Shortness of Breath/Dyspnea Stated Complaint: SOB Time Seen by Provider: 04/16/22 14:20 Source: patient Mode of arrival: ambulatory Limitations: no limitations History of Present Illness: HPI Narrative: 56-year-old male presents to the emergency room with complaints of generally feeling weak and short of breath. Patient had been working 120 230 degree environment all day and began feeling weak lightheaded dizzy short of breath. Chu ruffin is brought in by EMS. Initially gone to his primary care doctor was fatigue and was referred here for fluids. He denies any chest pain denies any vomiting or diarrhea. No history of heart disease no previous strokes. He does occasionally use an albuterol inhaler he does not smoke. Sats were reported as low in the field however on arrival here as well oxygen sats on room air MD elicited complaint: shortness of breath Pertinent past history: COPD Onset (ago): hour(s) Timing: intermittent and improved Severity: mild Exacerbating factors: exertion Relieving factors: rest Known history of: COPD Associated symptoms: Deny abdominal pain, chest congestion, chest pain, cough, diaphoresis, dizziness, extremity pain, fever(s), hemoptysis, lightheadedness, myalgias, nausea, orthopnea, palpitations, paresthesias, polydipsia, polyuria, rash, sense of impending doom, syncope or vomiting Treatment prior to arrival: oxygen Review of Systems Const: Denies: fever(s), chills, fatigue, malaise or diaphoresis ENMT: Denies: throat pain, ear or mastoid pain, nasal discharge or nasal congestion Card: Denies: chest pain, palpitations, lightheadedness, syncope or orthopnea Resp: Reports: dyspnea; Denies: productive cough, non-productive cough, wheezing, hemoptysis or chest congestion GI: Denies: abdominal pain, nausea or vomiting : Denies: flank pain, dysuria, urinary frequency or urinary urgency Musc: Denies: extremity pain Skin/Breast: Denies: rash or pruritus Neuro: Denies: dizziness Endo: Denies: polyuria or polydipsia [facility] ED PFSH: Medical History (Updated 04/16/22 @ 15:48 by Horace Hudson DO) Asthma Chest pain Chronic steroid use High risk medication use HTN (hypertension) Hypertension Immunization counseling Major depressive disorder Polymyalgia rheumatica Surgical History H/O esophagogastroduodenoscopy H/O hand surgery H/O knee surgery History of appendectomy History of nasal surgery History of umbilical hernia repair (01/26/20) Status post colonoscopy Family History Father Lung disease Asthma Denies family history of Diabetes Clotting disorder Dementia Chronic kidney disease (CKD) Social History Smoking and tobacco status: never smoked Alcohol intake: never Lives independently: Yes Household members: spouse Marital status: Current occupational status: employed Current occupational exposures/hazards: Yes History of recent travel: No Current gender identity: Male Physical Exam Const: GENERAL APPEARANCE: cooperative and comfortable ORIENTATIO N/CONSCIOUSNESS: Yes awake, Yes oriented to person, Yes oriented to place and Yes oriented to time HENMT: COMMON NORMALS: normocephalic, atraumatic and hearing grossly normal bilaterally HEAD & SCALP: normocephalic and atraumatic Neck/C-Spine: COMMON NORMALS: no JVD Resp: COMMON NORMALS: normal respiratory effort, No retractions, No use of accessory muscles and clear to auscultation bilaterally AUSCULTATION: clear to auscultation bilaterally Cardio: COMMON NORMALS: no JVD, regular rate, regular rhythm and No murmurs present (Cardio) RATE: regular rate RHYTHM: regular rhythm GI: COMMON NORMALS: Soft to palpation and No hepatosplenomegaly present AUSCULTATION: Yes normoactive bowel sounds PALPATION: Yes Soft to palpation, No Tenderness to palpation present (GI), No Guarding due to palpation present (GI) and Yes No hepatosplenomegaly present Extremity: COMMON NORMALS: normal to inspection, capillary refill normal, no clubbing, cyanosis or edema, no calf tenderness and no pedal edema Neuro: SENSORIUM/ORIENTATION: Yes oriented to person, Yes oriented to place and Yes oriented to time Skin: COMMON NORMALS: no rashes or lesions noted GENERAL SKIN EXAM: no rashes or lesions noted Course Vital Signs: Vital signs: Vital Signs Temperature 98.2 F 04/16/22 14:24 Pulse Rate 74 04/16/22 16:02 Respiratory Rate 26 H 04/16/22 14:24 Blood Pressure 136/79 04/16/22 16:02 Pulse Oximetry 94 04/16/22 16:02 Oxygen Delivery Me thod 04/16/22 15:30 Oxygen Flow Rate 2 04/16/22 14:24 MDM - SOB/Dyspnea Medical Decision Making Labs and imaging reviewed. No significant finding. His creatinine is slightly elevated he was given IV fluids discharge home have him follow-up with his primary care doctor later this week to recheck liver functions advised exposure to heat increase in fluid intake. Medical Records I reviewed the patient's medical records. Lab Data I reviewed the patient's lab results. : 04/16/22 14:11 04/16/22 14:11 Labs/Radiology: Radiology Impressions Chest X-Ray 04/16/22 14:21 IMPRESSION: 1. No acute cardiopulmonary finding. No change. Laboratory Results WBC 5.0 10^3/uL (4.0-10.0) 04/16/22 14:11 RBC 4.28 10^6/uL (4.1-5.3) 04/16/22 14:11 Hgb 13.2 g/dL (11.7-16.6) 04/16/22 14:11 Hct 38.8 % (42.0-52.0) L 04/16/22 14:11 MCV 90.7 fl (80-94) 04/16/22 14:11 MCH 30.8 pg (28.0-34.0) 04/16/22 14:11 MCHC 34.0 g/dL (30.0-36.0) 04/16/22 14:11 RDW 14.4 % (12.1-15.1) 04/16/22 14:11 Plt Count 286 10^3/cmm (130-400) 04/16/22 14:11 MPV 10.0 fL (7.4-10.4) 04/16/22 14:11 Neut % (Auto) 73.6 % 04/16/22 14:11 Lymph % (Auto) 16.8 % 04/16/22 14:11 [place] % (Auto) 8.4 % 04/16/22 14:11 Eos % (Auto) 0.4 % 04/16/22 14:11 Baso % (Auto) 0.4 % 04/16/22 14:11 Neut # (Auto) 3.67 10^3/uL (1.8-7.7) 04/16/22 14:11 Lymph # (Auto) 0.8 10^3/uL (0.8-4.8) 04/16/22 14:11 [place] # (Auto) 0.4 10^3/uL (0.2-0.9) 04/16/22 14:11 Eos # (Auto) 0.0 10^3/uL (0.0-0.8) 04/16/22 14:11 Baso # (Auto) 0.0 10^3/uL (0.0-0.1) 04/16/22 14:11 Nucleated RBC % (auto) 0 % 04/16/22 14:11 Nucleated RBCs # 0.0 /100WBC 04/16/22 14:11 Sodium 136 mmol/L (136-145) 04/16/22 14:11 Potassium 4.0 mmol/L (3.5-5.1) 04/16/22 14:11 Chloride 98 mmol/L (98-107) 04/16/22 14:11 Carbon Dioxide 24 mmol/L (22-29) 04/16/22 14:11 Anion Gap 18.0 (5-19) 04/16/22 14:11 BUN 17 mg/dL (6-20) 04/16/22 14:11 Creatinine 1.4 mg/dL (0.7-1.2) H 04/16/22 14:11 GFR Calculation 52.8 mL/min (90-130) L 04/16/22 14:11 Glucose 219 mg/dL (65-115) H 04/16/22 14:11 Calculated Osmolality 290 mOsm/kg (285-295) 04/16/22 14:11 Calcium 9.7 mg/dL (8.5-10.5) 04/16/22 14:11 Total Bilirubin 0.3 mg/dL (0.15-1.2) 04/16/22 14:11 AST 26 U/L (0-40) 04/16/22 14:11 ALT 38 U/L (0-41) 04/16/22 14:11 Alkaline Phosphatase 44 IU/L (40-130) 04/16/22 14:11 Total Protein 7.1 g/dL (6.6-8.7) 04/16/22 14:11 Albumin 4.5 g/dL (3.5-5.2) 04/16/22 14:11 Globulin 2.6 g/dL (1.3-4.6) 04/16/22 14:11 Discharge Plan Discharge Patient Disposition: Home Clinical Impression: Heat exhaustion Condition: Stable Prescriptions: Discontinued hydrochlorothiazide 25 mg Tablet 25 mg PO DAILY No Action ergocalciferol (vitamin D2) 1,250 mcg (50,000 unit) capsule 1,250 mcg PO .weekly Qty: 15 1RF Rx Instructions: Once a week on sundays methotrexate sodium 2.5 mg tablet 20 mg PO .Q7days Qty: 40 4RF Rx Instructions: Split dose... Take 4 tabs by mouth in AM and 4 in PM on same day 1x a week on Sundays folic acid 1 mg tablet 1 mg PO DAILY amoxicillin-pot clavulanate 875-125 mg tablet 1 tab PO BID Qty: 14 0RF prednisone 20 mg tablet See Rx Instructions PO .COMPLEX PRN (Reason: joint pain flare) Qty: 60 0RF Rx Instructions: take 1 tab daily for 5-7 days as needed for arthritis flare PO PRN; prednisone 5 mg tablet See Rx Instructions .ROUTE .COMPLEX Qty: 30 4RF Dose Instruction: TAKE 1 TABLET BY MOUTH EVERY DAY Rx Instructions: TAKE 1 TABLET BY MOUTH EVERY DAY omeprazole 20 mg capsule,delayed release(DR/EC) 20 mg PO DAILY albuterol sulfate 90 mcg/actuation Hfa Aerosol Inhaler 2 puff INHALATION Q4H PRN (Reason: Shortness Of Breath) amlodipine 2.5 mg tablet 2.5 mg PO DAILY Qty: 30 2RF metoprolol tartrate 100 mg Tablet 100 mg PO BID citalopram 20 mg Tablet 20 mg PO DAILY losartan 50 mg tablet 100 mg PO DAILY erythromycin 5 mg/gram (0.5 %) ointment 1 applic ophthalmic (eye) Q8H Qty: 1 0RF Discharge Orders: Discharge ED (Routine); Ordered 04/16/22 Ordered By: Horace Hudson Referrals: Walker Sarabia MD [Primary Care Provider] - Discharge Diet: Usual diet Discharge Activity: Limit activity as instructed Patient Instructions: Heat Exhaustion (ED), Opioid Safety Activity Restrictions/Additional Instructions: Avoid heat exposure for the next 2 days recheck with primary care doctor in 2 to 3 days to repeat lab work including a BMP. Return to the ER if you have further problems. Hold hydrochlorothiazide until advised by her physician to restart Stand Alone Forms: Work/School Release Coding Level of Care Code ED Barbering Teacher for [place] Fwd Exam Comprehensive
[2022-04-16 14:56] LABS: Alanine Aminotransferase 38 U/L (0-41); Albumin Level 4.5 g/dL (3.5-5.2); Alkaline Phosphatase 44 IU/L (40-130); Aspartate Amino Transferase 26 U/L (0-40); Blood Urea Nitrogen 17 mg/dL (6-20); Calcium 9.7 mg/dL (8.5-10.5); Carbon Dioxide 24 mmol/L (22-29); Chloride 98 mmol/L (98-107); Globulin 2.6 g/dL (1.3-4.6); Glomerular Filtration Rate 52.8 mL/min (90-130); Glucose 219 mg/dL (65-115); Osmolality Calculated 290 mOsm/kg (285-295); Sodium 136 mmol/L (136-145); Total Bilirubin 0.3 mg/dL (0.15-1.2); Total Protein 7.1 g/dL (6.6-8.7)
[2022-04-16 15:28] VITALS: BP 136/79; PULSE 74; O2SAT 94
[2022-04-16 15:30] VITALS: BP 133/78; PULSE 75; O2SAT 95
[2022-04-16 16:02] VITALS: BP 136/79; PULSE 74; O2SAT 94
== END 2022-04-16 15:57 | disposition home or self-care (01) ==
PROVIDERS: Emergency Provider Family Medicine; PCP Family Medicine
DX: T67.5XXA Heat exhaustion, unspecified, initial encounter (principal); X30.XXXA Exposure to excessive natural heat, initial encounter; I10 Essential (primary) hypertension
CPT/HCPCS: 71045; 80053; 85025; 93005; 99285; J7030

== ENCOUNTER 2022-05-02 09:48 | Emergency (ER) | payer OTHER, SELFPAY ==
[2022-05-02] VITALS (11 sets, daily range): BP systolic 130–171; BP diastolic 84–99; PULSE 54–63; RESP 13–28; TEMP 37; O2SAT 91–97; BMI 36.7
--- NOTE | 2022-05-02 10:10 | XR_ITS ---
WS: [id number] XR chest 1V portable [id number] REASON FOR EXAM: cp FINDINGS: Chest is unchanged compared to previous examination of 04/16/2022. There is moderate tortuosity the thoracic aorta. Mild cardiomegaly. Calcified granulomatous disease bilaterally. No acute pulmonary parenchymal or pleural abnormality. XR/XR chest 1V portable [id number] IMPRESSION: Stable chest without acute abnormality.
--- NOTE | 2022-05-02 10:11 | ECG_ITS ---
[facility] Test Date: 2022-05-02 Pat Name: Madi Lowe Department: Room: Gender: Male Meal Packer: : 1965 Requested By: Walker Abraham Order Number: [id number] Mason MD: Thuy Gallegos M.D. Measurements Intervals [place] Rate: 58 P: 72 [place]: 179 QRS: 7 QRSD: 98 T: 52 QT: 425 QTc: 420 Interpretive Statements SINUS BRADYCARDIA POSSIBLE RIGHT VENTRICULAR CONDUCTION DELAY [RSR (QR) IN V1/V2] Compared to ECG 04/16/2022 14:45:36 Sinus rhythm no longer present T-wave abnormality no longer present Electronically Signed On 05-02-2022 18:40:18 CDT by Thuy Gallegos M.D. [email or web address] [id number] f
--- NOTE | 2022-05-02 10:12 | ED_ITS ---
HPI - Chest Pain General: Chief Complaint: Chest Pain Stated Complaint: high bp Time Seen by Provider: 05/02/22 10:06 History of Present Illness: Patient is a 56-year-old male comes to the ED with chest pain. He has a history of hypertension, GERD and asthma.Patient states that last night he started developing chest pain while laying down. He describes the chest pain as mild and aching heaviness in the middle of his chest. He rates it currently a 3 out of 10. He also checked his blood pressure at home this morning and it was in 170s/ 115. he also endorses some shortness of breath but says that its been going on now for over 2 weeks. Chest pain worsens with activity. He saw commercial designer in [place] and they are currently getting him set up with some outpatient cardiac testing. He says his last cardiac stress test was approximately 3 years ago. Associated symptoms: Reports dyspnea; Deny abdominal pain, fever(s), nausea, palpitations or vomiting Review of Systems Const: Denies: fever(s), chills or fatigue Eyes: Denies: change in vision or eye discomfort ENMT: Denies: throat pain, odynophagia, nasal discharge or nasal congestion Card: Reports: chest pain; Denies: palpitations, edema, swelling of feet/ankles, dyspnea on exertion or orthopnea Resp: Reports: dyspnea; Denies: productive cough or non-productive cough GI: Denies: abdominal pain, nausea, vomiting, diarrhea, constipation or hematochezia : Denies: flank pain, difficulty urinating, dysuria or hematuria Musc: Denies: neck pain, back pain or extremity swelling Skin/Breast: Denies: rash or new lesions Neuro: Denies: headache(s), numbness in extremities or weakness in extremities PFS ED PFSH: Medical History (Updated 05/02/22 @ 15:11 by JACLYN Lomax) Asthma Chest pain Chronic steroid use High risk medication use HTN (hypertension) Hypertension Immunization counseling Major depressive disorder Polymyalgia rheumatica Surgical History H/O esophagogastroduodenoscopy H/O hand surgery H/O knee surgery History of appendectomy History of nasal surgery History of umbilical hernia repair (01/26/20) Status post colonoscopy Family History Father Lung disease Asthma Denies family history of Diabetes Clotting disorder Dementia Chronic kidney disease (CKD) Social History Smoking and tobacco status: never smoked Alcohol intake: never Lives independently: Yes Household members: spouse Marital status: Current occupational status: employed Current occupational exposures/hazards: Yes History of recent travel: No Current gender identity: Male Physical Exam Const: COMMON NORMALS: patient oriented x3 and alert GENERAL APPEARANCE: cooperative HENMT: COMMON NORMALS: normocephalic HEAD & SCALP: normocephalic MOUTH: Normal oral and palatal mucosa present THROAT: posterior oropharynx normal and uvula midline Neck/C-Spine: COMMON NORMALS: supple GENERAL: Yes normal visual inspection Resp: COMMON NORMALS: normal respiratory effort, No retractions, No use of accessory muscles and clear to auscultation bilaterally EFFORT & INSPECTION: Yes tachypneic (20 to 24 breaths/min) AUSCULTATION: clear to auscultation bilaterally Cardio: COMMON NORMALS: regular rate, regular rhythm, S1 normal heart sound present, S2 normal heart sound present, No gallops present (Cardio), No clicks present (Cardio), No murmurs present (Cardio) and Peripheral pulses 2+ thr oughout RATE: regular rate RHYTHM: regular rhythm HEART SOUNDS: S1 normal heart sound present and S2 normal heart sound present PERIPHERAL PULSES: Peripheral pulses 2+ throughout GI: COMMON NORMALS: Normal to inspection, nondistended, normoactive bowel sounds present, Soft to palpation, non-tender and no masses PALPATION: Yes Soft to palpation : COMMON NORMALS: Yes no CVA tenderness BLADDER/KIDNEY EXAM: Yes no CVA tenderness Back/Pelvis: COMMON NORMALS: no CVA tenderness Extremity: COMMON NORMALS: normal to inspection Neuro: COMMON NORMALS: patient oriented x3 SENSORIUM/ORIENTATION: Yes alert GAIT: Yes Normal gait present Skin: GENERAL SKIN EXAM: dry skin Course Vital Signs: Vital signs: Vital Signs Temperature 98.6 F 05/02/22 10:00 Pulse Rate 56 L 05/02/22 14:30 Respiratory Rate 13 05/02/22 14:30 Blood Pressure 145/94 05/02/22 15:00 Pulse Oximetry 96 05/02/22 15:00 Oxygen Delivery Me thod 05/02/22 10:00 MDM - Chest Pain Medical Decision Making Patient is a 56-year-old male comes to the ED with chest pain shortness of breath. He has been having shortness of breath now for about a month and he says his chest pain started approximately a day ago. Chest pain described as mild and a heaviness in the middle of the chest. Patient has a commercial designer he sees in [place] and is in the process of getting some outpatient cardiac testing set up. Vitals are stable and patient's O2 sats 96% on room air. Patient did have increased respiratory rate and around 20-24 on exam. The rest of exam is benign. CBC, CMP showed no acute finding. Baseline troponin 9 and 2-hour troponin was 6.7 With a delta of -2.9. BNP was 335. D-dimer 0.94. EKG showed no acute findings. Chest x-ray showed no acute findings. CTA of chest showed no PE or any other acute findings. Home O2 study was done by respiratory therapist and they did not qualify for home oxygen. Heart score of 3. I talked with Dr. Coello about patient case and he agreed he is stable for discharge home. I placed an order with case management for patient to be referred to commercial designer here at [facility] for follow-up. He was diagnosed with chest pain and shortness of breath. He was told to follow-up with his PCP in the next week for reevaluation. Strict return to ED precautions given. Patient understood and agreed with plan. Lab Data I reviewed the patient's lab results. : 05/02/22 10:25 05/02/22 10:25 Radiology Impressions Chest X-Ray 05/02/22 10:10 IMPRESSION: Stable chest without acute abnormality. Chest CTA 05/02/22 12:37 IMPRESSION: 1. Suboptimal opacification of the pulmonary arteries. No central pulmonary embolism through the lobar and some of the segmental branches. 2. Mild LEFT heart enlargement. 3. Moderate hiatal hernia. Next line no pneumonia. 4. Hepatic steatosis. Laboratory Results WBC 5.4 10^3/uL (4.0-10.0) 05/02/22 10:25 RBC 4.30 10^6/uL (4.1-5.3) 05/02/22 10:25 Hgb 13.2 g/dL (11.7-16.6) 05/02/22 10:25 Hct 40.2 % (42.0-52.0) L 05/02/22 10:25 MCV 93.5 fl (80-94) 05/02/22 10:25 MCH 30.7 pg (28.0-34.0) 05/02/22 10:25 MCHC 32.8 g/dL (30.0-36.0) 05/02/22 10:25 RDW 14.1 % (12.1-15.1) 05/02/22 10:25 Plt Count 267 10^3/cmm (130-400) 05/02/22 10:25 MPV 9.5 fL (7.4-10.4) 05/02/22 10:25 Neut % (Auto) 56.6 % 05/02/22 10:25 Lymph % (Auto) 21.4 % 05/02/22 10:25 [place] % (Auto) 11.3 % 05/02/22 10:25 Eos % (Auto) 9.8 % 05/02/22 10:25 Baso % (Auto) 0.7 % 05/02/22 10:25 Neut # (Auto) 3.07 10^3/uL (1.8-7.7) 05/02/22 10:25 Lymph # (Auto) 1.2 10^3/uL (0.8-4.8) 05/02/22 10:25 [place] # (Auto) 0.6 10^3/uL (0.2-0.9) 05/02/22 10:25 Eos # (Auto) 0.5 10^3/uL (0.0-0.8) 05/02/22 10:25 Baso # (Auto) 0.0 10^3/uL (0.0-0.1) 05/02/22 10:25 Nucleated RBC % (auto) 0 % 05/02/22 10:25 Nucleated RBCs # 0.0 /100WBC 05/02/22 10:25 D-Dimer 0.94 ug/mIFEU (0-0.59) H 05/02/22 10:25 Sodium 136 mmol/L (136-145) 05/02/22 10:25 Potassium 4.2 mmol/L (3.5-5.1) 05/02/22 10:25 Chloride 101 mmol/L (98-107) 05/02/22 10:25 Carbon Dioxide 26 mmol/L (22-29) 05/02/22 10:25 Anion Gap 13.2 (5-19) 05/02/22 10:25 BUN 9 mg/dL (6-20) 05/02/22 10:25 Creatinine 1.2 mg/dL (0.7-1.2) 05/02/22 10:25 GFR Calculation 63.1 mL/min (90-130) L 05/02/22 10:25 Glucose 103 mg/dL (65-115) 05/02/22 10:25 Calculated Osmolality 281 mOsm/kg (285-295) L 05/02/22 10:25 Calcium 9.4 mg/dL (8.5-10.5) 05/02/22 10:25 Total Bilirubin 0.4 mg/dL (0.15-1.2) 05/02/22 10:25 AST 30 U/L (0-40) 05/02/22 10:25 ALT 33 U/L (0-41) 05/02/22 10:25 Alkaline Phosphatase 38 IU/L (40-130) L 05/02/22 10:25 Troponin T Baseline 9 ng/L (0-15) 05/02/22 10:25 Troponin T 120 Minute 6.71 ng/L (0-15) 05/02/22 12:37 Delta Troponin T -2.29 ABS# (0-10) L 05/02/22 12:37 NT-Pro-B Natriuret Pep 335 pg/mL (0-125) H 05/02/22 10:25 Total Protein 6.8 g/dL (6.6-8.7) 05/02/22 10:25 Albumin 3.8 g/dL (3.5-5.2) 05/02/22 10:25 Globulin 3.0 g/dL (1.3-4.6) 05/02/22 10:25 EKG Data EKG 1: EKG interpretation date: 05/02/22 Interpretation: Sinus bradycardia, no ST segment elevation or depression seen. 55 bpm. Discharge Plan Discharge Patient Disposition: Home Clinical Impression: Shortness of breath Chest pain Qualifiers: Chest pain type: unspecified Qualified Code(s): R07.9 - Chest pain, unspecified Condition: Stable Prescriptions: No Action ergocalciferol (vitamin D2) 1,250 mcg (50,000 unit) capsule 1,250 mcg PO .weekly Qty: 15 1RF Rx Instructions: Once a week on sundays methotrexate sodium 2.5 mg tablet 20 mg PO .Q7days Qty: 40 4RF Rx Instructions: Split dose... Take 4 tabs by mouth in AM and 4 in PM on same day 1x a week on Sundays folic acid 1 mg tablet 1 mg PO DAILY amoxicillin-pot clavulanate 875-125 mg tablet 1 tab PO BID Qty: 14 0RF prednisone 20 mg tablet See Rx Instructions PO .COMPLEX PRN (Reason: joint pain flare) Qty: 60 0RF Rx Instructions: take 1 tab daily for 5-7 days as needed for arthritis flare PO PRN; prednisone 5 mg tablet See Rx Instructions .ROUTE .COMPLEX Qty: 30 4RF Dose Instruction: TAKE 1 TABLET BY MOUTH EVERY DAY Rx Instructions: TAKE 1 TABLET BY MOUTH EVERY DAY omeprazole 20 mg capsule,delayed release(DR/EC) 20 mg PO DAILY albuterol sulfate 90 mcg/actuation Hfa Aerosol Inhaler 2 puff INHALATION Q4H PRN (Reason: Shortness Of Breath) amlodipine 2.5 mg tablet 2.5 mg PO DAILY Qty: 30 2RF metoprolol tartrate 100 mg Tablet 100 mg PO BID citalopram 20 mg Tablet 20 mg PO DAILY losartan 50 mg tablet 100 mg PO DAILY erythromycin 5 mg/gram (0.5 %) ointment 1 applic ophthalmic (eye) Q8H Qty: 1 0RF Discharge Orders: Discharge ED (Routine); Ordered 05/02/22 Ordered By: Walker Abraham Referrals: Walker Sarabia MD [Primary Care Provider] - Discharge Diet: Regular Discharge Activity: Increase activity as tolerated Patient Instructions: Chest Pain (DC), Shortness of Breath (ED) Activity Restrictions/Additional Instructions: Follow-up with medical provider as directed. Follow-up with your commercial designer at your next scheduled appointment. Continue taking all medications as previously prescribed. Return to the ER or your medical provider if condition worsens. Please read and understand discharge instructions. Thank you for choosing [facility] for your healthcare needs today. Please realize this is an emergency room and that we are providing you with a medical screening exam and this may not be complete and all inclusive of all the testing and or work up that you may need to determine your ailment or severity of your illness. It is very important that you follow up as instructed or that you return to the Emergency Department should you have concerns or if your condition changes or worsens in any way. Coding Level of Care Code ED Bus And Trolley Dispatcher for [place] Fwd Exam Comprehensive
[2022-05-02 10:34] LABS: Basophils % 0.7 %; Eosinophils # 0.5 10^3/uL (0.0-0.8); Eosinophils % 9.8 %; Hematocrit 40.2 % (42.0-52.0); Hemoglobin 13.2 g/dL (11.7-16.6); Lymphocytes # 1.2 10^3/uL (0.8-4.8); Lymphocytes % 21.4 %; Mean Corpuscular HGB Conc 32.8 g/dL (30.0-36.0); Mean Corpuscular Hemoglobin 30.7 pg (28.0-34.0); Mean Corpuscular Volume 93.5 fl (80-94); Mean Platelet Volume 9.5 fL (7.4-10.4); Monocytes # 0.6 10^3/uL (0.2-0.9); Monocytes % 11.3 %; Neutrophils # 3.07 10^3/uL (1.8-7.7); Neutrophils % 56.6 %; Nucleated Red Blood Cells % 0 %; Platelet Count 267 10^3/cmm (130-400); Red Cell Distribution Width 14.1 % (12.1-15.1); White Blood Count 5.4 10^3/uL (4.0-10.0)
[2022-05-02 11:07] LABS: Troponin(5th) Baseline 9 ng/L (0-15)
[2022-05-02 11:14] LABS: Alanine Aminotransferase 33 U/L (0-41); Albumin Level 3.8 g/dL (3.5-5.2); Alkaline Phosphatase 38 IU/L (40-130); Anion Gap 13.2 (5-19); Aspartate Amino Transferase 30 U/L (0-40); Blood Urea Nitrogen 9 mg/dL (6-20); Calcium 9.4 mg/dL (8.5-10.5); Carbon Dioxide 26 mmol/L (22-29); Chloride 101 mmol/L (98-107); Glomerular Filtration Rate 63.1 mL/min (90-130); Glucose 103 mg/dL (65-115); NT Pro B Type Natriuretic Pept 335 pg/mL (0-125); Osmolality Calculated 281 mOsm/kg (285-295); Potassium 4.2 mmol/L (3.5-5.1); Sodium 136 mmol/L (136-145); Total Bilirubin 0.4 mg/dL (0.15-1.2); Total Protein 6.8 g/dL (6.6-8.7)
[2022-05-02 12:29] LABS: D Dimer 0.94 ug/mIFEU (0-0.59)
--- NOTE | 2022-05-02 12:29 | ECG_ITS ---
[facility] Test Date: 2022-05-02 Pat Name: Madi Lowe Department: Room: Gender: Male Care Giver: : 1965 Requested By: Walker Abraham Order Number: [id number] Mason MD: Thuy Gallegos M.D. Measurements Intervals [place] Rate: 55 P: 12 [place]: 159 QRS: 35 QRSD: 102 T: 42 QT: 460 QTc: 441 Interpretive Statements SINUS BRADYCARDIA POSSIBLE RIGHT VENTRICULAR CONDUCTION DELAY [RSR (QR) IN V1/V2] Compared to ECG 05/02/2022 10:06:26 No significant changes Electronically Signed On 05-02-2022 18:54:42 CDT by Thuy Gallegos M.D. [id number]
--- NOTE | 2022-05-02 12:37 | CT_ITS ---
WS: [id number] CT CHEST ANGIOGRAPHY WITH REFORMATS HISTORY: SOB and CP, elevated d dimer TECHNIQUE: Contiguous axial images are obtained through the chest during arterial injection of intrav enous contrast. Images are reconstructed to evaluate the pulmonary arteries. MIP imaging also reviewe d. All CT scans at [facility] use at least one of these dose optimization techniques: automat ed exposure control; mA and/or kV adjustment per patient size (includes targeted exams where dose is matched to clinical indication); or iterative reconstruction. CONTRAST: Omnipaque 350; 85 mL IV. DLP: 526.32 mGy.cm COMPARISON: 01/12/2021 Limited opacification of the pulmonary arteries. No filling defects through the lobar and portions of the segmental branches. Beyond the segmental branches the opacification is suboptimal. Normal size p ulmonary artery. No pneumonia, pulmonary nodule or mass. No pericardial or pleural effusions. Moderate enlargement of the LEFT heart chambers. No mediastinal or hilar adenopathy. Moderate size hiatal hernia. Diffuse hepatic steatosis. No adrenal mass. Mild increase in thoracic kyphosis. Thoracic spondylosis. CT/CT angio chest PE protcl [id number] IMPRESSION: 1. Suboptimal opacification of the pulmonary arteries. No central pulmonary em bolism through the lobar and some of the segmental branches. 2. Mild LEFT heart enlargement. 3. Moderate hiatal hernia. Next line no pneumonia. 4. Hepatic steatosis.
[2022-05-02] MEDS: iohexol 350 mg/mL 100 mL Btl IV (13:10)
[2022-05-02 13:15] LABS: Troponin 5 2HR 6.71 ng/L (0-15)
[2022-05-02 13:22] LABS: Troponin 5 2HR Delta -2.29 ABS# (0-10)
--- NOTE | 2022-05-03 08:39 | DCPLANNER ---
Addendum entered by Melina Varma 05/03/22 15:29: assistant restaurant general manager received the following message from [facility] regarding follow up appointment: pt returned call - due to cardiologists new patient availability being out to the first days of Jun or Jul, depending on the doctor, pt decided to stay with [facility] Original Note: assistant restaurant general manager had message to schedule a follow up appointment for patient with cardiology. assistant restaurant general manager sent patients information to the front office staff at [facility]. Patients information will be printed and reviewed. Clinic will call patient with appointment information.
== END 2022-05-02 15:31 | disposition home or self-care (01) ==
PROVIDERS: Emergency Provider Physician Assistant; PCP Family Medicine
DX: R07.9 Chest pain, unspecified (principal); R06.02 Shortness of breath; I10 Essential (primary) hypertension
CPT/HCPCS: 71045; 71275; 80053; 83880; 84484; 85025; 85378; 93005; 94760; 99285; Q9967

== ENCOUNTER 2023-02-09 14:19 | Emergency (ER) | payer BC, SELFPAY ==
[2023-02-09] VITALS (9 sets, daily range): BP systolic 135–169; BP diastolic 68–106; PULSE 68–79; RESP 18–21; TEMP 36.9; O2SAT 95–97; BMI 36.1
--- NOTE | 2023-02-09 14:42 | XRR_ITS ---
PROCEDURE INFORMATION: Exam: XR Chest Exam date and time: 02/09/2023 3:03 PM Age: 57 years old Clinical indication: Pain; Chest pressure; Additional info: Shortness of breath TECHNIQUE: Imaging protocol: Radiologic exam of the chest. Views: 1 view. COMPARISON: CR XR chest 1V portable [id number] 05/02/2022 10:25 AM FINDINGS: Lungs: Unremarkable. No consolidation. Low lung volumes Pleural spaces: Unremarkable. No pleural effusion. No pneumothorax. Heart/Mediastinum: Unremarkable. No cardiomegaly. Bones/joints: Unremarkable. XR/XR chest 1V portable [id number] IMPRESSION: No acute findings.
--- NOTE | 2023-02-09 14:42 | XRR_ITS ---
PROCEDURE INFORMATION: Exam: XR Abdomen Exam date and time: 02/09/2023 3:03 PM Age: 57 years old Clinical indication: Abdominal pain; Acute; Patient HX: Llq; Additional info: Abd pain TECHNIQUE: Imaging protocol: Radiologic exam of the abdomen. Views: Frontal supine view of the abdomen. 1 View. COMPARISON: CT abdomen pelvis w con* [id number] 08/07/2021 10:58 PM FINDINGS: Gastrointestinal tract: Normal. No bowel dilation. Bones/joints: Unremarkable. XR/XR abdomen 1V* [id number] IMPRESSION: No acute findings.
[2023-02-09 14:50] LABS: Basophils % 0.6 %; Eosinophils # 0.3 10^3/uL (0.0-0.8); Eosinophils % 6.1 %; Hematocrit 39.8 % (42.0-52.0); Hemoglobin 12.8 g/dL (11.7-16.6); Lymphocytes # 1.2 10^3/uL (0.8-4.8); Mean Corpuscular HGB Conc 32.2 g/dL (30.0-36.0); Mean Corpuscular Volume 90.2 fl (80-94); Monocytes # 0.5 10^3/uL (0.2-0.9); Monocytes % 10.4 %; Neutrophils % 57.3 %; Nucleated Red Blood Cells % 0 %; Platelet Count 291 10^3/cmm (130-400); Red Blood Count 4.41 10^6/uL (4.1-5.3); Red Cell Distribution Width 15.1 % (12.1-15.1); White Blood Count 4.7 10^3/uL (4.0-10.0)
--- NOTE | 2023-02-09 14:54 | PC.NURSE ---
Pt hooked up to continuous bedside cardiac monitoring.
--- NOTE | 2023-02-09 15:07 | ED_ITS ---
HPI - Abdominal Pain General: Chief Complaint: Abdominal Pain Stated Complaint: abd pain, fever Time Seen by Provider: 02/09/23 14:39 History of Present Illness: Patient presents to the ER with complaints of abdominal pain. Patient says he is not having bowel movements like normal. But he is still passing gas and stool. This been going on for about the last 2 weeks. Patient says he is having more cramps and is also waking up with sweats and fever and chills in middle the night. Patient has had no bowel surgery in the past besides ventral hernia and appendectomy. MD elicited complaint: abdominal pain Onset (ago): week(s) (2 weeks) Pain Consistency: intermittent Location: RLQ and LLQ Severity: moderate Radiation: none Migration to: no migration Exacerbating factors: eating Relieving factors: nothing Associated Symptoms: Reports constipation; Denies chills, dysuria, fever(s), nausea and vomiting Review of Systems General: Reports: 10 or more systems reviewed and unremarkable except in HPI and below Const: Denies: fever(s) or chills Eyes: Denies: change in vision or photophobia ENMT: Denies: throat pain or odynophagia Card: Denies: chest pain, palpitations or irregular heart rhythm Resp: Denies: dyspnea, productive cough or non-productive cough GI: Reports: abdominal pain and constipation; Denies: nausea or vomiting : Denies: flank pain or dysuria Musc: Denies: neck pain, back pain or extremity pain Skin/Breast: Denies: rash or pruritus Neuro: Denies: headache(s) or numbness in extremities Psych: Denies: anxiety or depression PFSH ED PFSH: Medical History Asthma Chest pain Chronic steroid use High risk medication use HTN (hypertension) Hypertension Immunization counseling Major depressive disorder Polymyalgia rheumatica Surgical History H/O esophagogastroduodenoscopy H/O hand surgery H/O knee surgery History of appendectomy History of nasal surgery History of umbilical hernia repair (01/26/20) Status post colonoscopy Family History Father Lung disease Asthma Denies family history of Diabetes Clotting disorder Dementia Chronic kidney disease (CKD) Social History Smoking and tobacco status: never smoked Alcohol intake: never Substance/Drug Use: never Lives independently: Yes Household members: spouse Marital status: Current occupational status: employed Current occupational exposures/hazards: Yes Do you think of yourself as: Straight/Heterosexual Current gender identity: Male Physical Exam Const: COMMON NORMALS: no acute distress, average body habitus, patient oriented x3, no limitations, alert and well nourished HENMT: COMMON NORMALS: normocephalic, atraumatic, hearing grossly normal bilaterally, external ears normal, Normal external nose present and moist oral mucous membranes HEAD & SCALP: normocephalic and atraumatic NOSE: Normal external nose present EXTERNAL EAR: Yes external ears normal Eye: COMMON NORMALS: Equal, round and reactive pupils present, EOMs intact bilaterally, conjunctivae normal and no scleral icterus CONJUNCTIVA: Yes conjunctivae normal PUPIL: Yes Equal, round and reactive pupils present Neck/C-Spine: COMMON NORMALS: full ROM, no lymphadenopathy, no meningeal signs, no JVD and Thyroid normal THYROID: Thyroid normal Lymph: LYMPHATIC: no lymphadenopathy noted Chest: COMMONS NORMALS: normal inspection of the chest and normal palpation of entire chest wall Resp: COMMON NORMALS: normal respiratory effort, No retractions, No use of accessory muscles and clear to auscultation bilaterally AUSCULTATION: clear to auscultation bilaterally Cardio: COMMON NORMALS: no JVD, regular rate, regular rhythm, S1 normal heart sound present, S2 normal heart sound present, No gallops present (Cardio), No clicks present (Cardio) and No murmurs present (Cardio) RATE: regular rate RHYTHM: regular rhythm HEART SOUNDS: S1 normal heart sound present and S2 normal heart sound present GI: COMMON NORMALS: Normal to inspection, nondistended, normoactive bowel sounds present, Soft to palpation, No hepatosplenomegaly present and no masses PALPATION: Yes Soft to palpation, Yes Tenderness to palpation present (GI) (Bilateral lower quadrants) and Yes No hepatosplenomegaly present : COMMON NORMALS: Yes no CVA tenderness BLADDER/KIDNEY EXAM: Yes no CVA tenderness Back/Pelvis: COMMON NORMALS: no CVA tenderness Neuro: COMMON NORMALS: patient oriented x3 SENSORIUM/ORIENTATION: Yes alert MENINGEAL SIGNS: Yes no meningeal signs Course Vital Signs: Vital signs: Vital Signs Temperature 98.4 F 02/09/23 14:28 Pulse Rate 68 02/09/23 17:00 Respiratory Rate 21 H 02/09/23 15:19 Blood Pressure 135/84 02/09/23 17:00 Pulse Oximetry 95 02/09/23 17:00 Oxygen Delivery Me thod Room Air 02/09/23 15:02 MDM - Abdominal Pain Medical Decision Making Patient presents to the ER with complaints of lower abdominal pain and constipation. Patient said this been going on for quite some time he is taken multiple enemas and feels like he is relieved the lower half. Physical exam was performed as well as CT of the abdomen x-ray of the abdomen chest x-ray and lab work. All of this was essentially benign except abdominal pelvis CT showed hepatomegaly hepatic steatosis and colonic diverticulosis patient was told to follow-up with his primary care practitioner in approximately 1 week and to use MiraLAX daily until having multiple bowel movements. Differential Diagnosis Likely abdominal pain and constipation; Unlikely acute appendicitis, calculus of kidney, diverticulitis, endometriosis, gastroenteritis, pancreatitis or small stephen wel obstruction Medical Records I reviewed the patient's medical records. Lab Data I reviewed the patient's lab results. 02/09/23 14:44 02/09/23 14:44 Labs/Radiology: Radiology Impressions Abdomen X-Ray 02/09/23 14:42 IMPRESSION: No acute findings. Chest X-Ray 02/09/23 14:42 IMPRESSION: No acute findings. Abdomen/Pelvis CT 02/09/23 16:00 IMPRESSION: 1. Hepatomegaly and hepatic steatosis. 2. Colonic diverticulosis 3. Benign cortical cyst left kidney Laboratory Results WBC 4.7 10^3/uL (4.0-10.0) 02/09/23 14:44 RBC 4.41 10^6/uL (4.1-5.3) 02/09/23 14:44 Hgb 12.8 g/dL (11.7-16.6) 02/09/23 14:44 Hct 39.8 % (42.0-52.0) L 02/09/23 14:44 MCV 90.2 fl (80-94) 02/09/23 14:44 MCH 29.0 pg (28.0-34.0) 02/09/23 14:44 MCHC 32.2 g/dL (30.0-36.0) 02/09/23 14:44 RDW 15.1 % (12.1-15.1) 02/09/23 14:44 Plt Count 291 10^3/cmm (130-400) 02/09/23 14:44 MPV 9.0 fL (7.4-10.4) 02/09/23 14:44 Neut % (Auto) 57.3 % 02/09/23 14:44 Lymph % (Auto) 25.0 % 02/09/23 14:44 [place] % (Auto) 10.4 % 02/09/23 14:44 Eos % (Auto) 6.1 % 02/09/23 14:44 Baso % (Auto) 0.6 % 02/09/23 14:44 Neut # (Auto) 2.70 10^3/uL (1.8-7.7) 02/09/23 14:44 Lymph # (Auto) 1.2 10^3/uL (0.8-4.8) 02/09/23 14:44 [place] # (Auto) 0.5 10^3/uL (0.2-0.9) 02/09/23 14:44 Eos # (Auto) 0.3 10^3/uL (0.0-0.8) 02/09/23 14:44 Baso # (Auto) 0.0 10^3/uL (0.0-0.1) 02/09/23 14:44 Nucleated RBC % (auto) 0 % 02/09/23 14:44 Nucleated RBCs # 0.0 /100WBC 02/09/23 14:44 Sodium 133 mmol/L (136-145) L 02/09/23 14:44 Potassium 4.1 mmol/L (3.5-5.1) 02/09/23 14:44 Chloride 99 mmol/L (98-107) 02/09/23 14:44 Carbon Dioxide 23 mmol/L (22-29) 02/09/23 14:44 Anion Gap 15.1 (5-19) 02/09/23 14:44 BUN 6 mg/dL (6-20) 02/09/23 14:44 Creatinine 1.0 mg/dL (0.7-1.2) 02/09/23 14:44 GFR Calculation 77.6 mL/min (90-130) L 02/09/23 14:44 Glucose 190 mg/dL (65-115) H 02/09/23 14:44 Calculated Osmolality 279 mOsm/kg (285-295) L 02/09/23 14:44 Calcium 8.9 mg/dL (8.5-10.5) 02/09/23 14:44 Total Bilirubin 0.4 mg/dL (0.15-1.2) 02/09/23 14:44 AST 28 U/L (0-40) 02/09/23 14:44 ALT 24 U/L (0-41) 02/09/23 14:44 Alkaline Phosphatase 39 U/L (40-130) L 02/09/23 14:44 NT-Pro-B Natriuret Pep 86 pg/mL (0-125) 02/09/23 14:44 Total Protein 7.0 g/dL (6.6-8.7) 02/09/23 14:44 Albumin 3.7 g/dL (3.5-5.2) 02/09/23 14:44 Globulin 3.3 g/dL (1.3-4.6) 02/09/23 14:44 Lipase 37 U/L (13-60) 02/09/23 14:44 Urine Color Yellow (Yellow) 02/09/23 15:38 Urine Appearance Clear (CLEAR) 02/09/23 15:38 Urine pH 6.5 (5-7) 02/09/23 15:38 Ur Specific [place] 1.010 (1.005-1.030) 02/09/23 15:38 Urine Protein Neg (Negative) 02/09/23 15:38 Urine Glucose (UA) Norm (Normal) 02/09/23 15:38 Urine Ketones Negative (Negative) 02/09/23 15:38 Urine Blood Neg (Negative) 02/09/23 15:38 Urine Nitrate Negative (Negative) 02/09/23 15:38 Urine Bilirubin Neg (Negative) 02/09/23 15:38 Urine Urobilinogen Norm mg/dL (Negative) 02/09/23 15:38 Ur Leukocyte Esterase Negative (Negative) 02/09/23 15:38 Discharge Plan Discharge Patient Disposition: Home Clinical Impression: Constipation Qualifiers: Constipation type: unspecified constipation type Qualified Code(s): K59.00 - Constipation, unspecified Abdominal pain Qualifiers: Abdominal location: lower abdomen, unspecified Qualified Code(s): R10.30 - Lower abdominal pain, unspecified Condition: Stable Prescriptions: No Action ergocalciferol (vitamin D2) 1,250 mcg (50,000 unit) capsule 1,250 mcg PO .weekly Qty: 15 1RF Rx Instructions: Once a week on sundays folic acid 1 mg tablet 1 mg PO DAILY fluticasone propionate [Flonase Allergy Relief] 50 mcg/actuation spray,suspension 1 spray intranasal BID PRN (Reason: nasal congestion) Qty: 16 0RF Rx Instructions: administer into each nostril Trelegy Ellipta 100-62.5-25 mcg blister with device 1 inh inhalation DAILY PRN prednisone 20 mg tablet See Rx Instructions .Route .COMPLEX Qty: 14 0RF Rx Instructions: 2 tabs PO daily for 4 days, then 1 tab PO daily X 4 days, then 0.5 tab daily for 4 days, then stop; famotidine [Pepcid] 20 mg tablet 20 mg PO BID 7 Days Qty: 14 0RF levofloxacin 750 mg tablet 750 mg PO DAILY Qty: 7 0RF omeprazole 20 mg capsule,delayed release(DR/EC) See Rx Instructions .ROUTE .COMPLEX Qty: 90 3RF Dose Instruction: TAKE 1 CAPSULE BY MOUTH EVERY DAY Rx Instructions: TAKE 1 CAPSULE BY MOUTH EVERY DAY amlodipine 2.5 mg tablet See Rx Instructions .ROUTE .COMPLEX Qty: 180 2RF Dose Instruction: TAKE 1 TABLET BY MOUTH ONCE A DAY INCREASE TO TWO TABLET DAILY IF BLOOD PRESS URE STAYS OVER 140/90 Rx Instructions: TAKE 1 TABLET BY MOUTH ONCE A DAY INCREASE TO TWO TABLET DAILY IF BLOOD PRESSURE STAYS OVER 140/90 hydrochlorothiazide 25 mg tablet See Rx Instructions .ROUTE .COMPLEX Qty: 90 3RF Dose Instruction: TAKE 1 TABLET BY MOUTH EVERY DAY FOR HIGH BLOOD PRESSURE Rx Instructions: TAKE 1 TABLET BY MOUTH EVERY DAY FOR HIGH BLOOD PRESSURE losartan 100 mg tablet See Rx Instructions .ROUTE .COMPLEX Qty: 90 3RF Dose Instruction: TAKE 1 TABLET BY MOUTH EVERY DAY FOR HIGH BLOOD PRESSURE Rx Instructions: TAKE 1 TABLET BY MOUTH EVERY DAY FOR HIGH BLOOD PRESSURE citalopram 20 mg tablet See Rx Instructions .ROUTE .COMPLEX Qty: 90 3RF Dose Instruction: TAKE 1 TABLET BY MOUTH EVERY DAY Rx Instructions: TAKE 1 TABLET BY MOUTH EVERY DAY prednisone 20 mg tablet See Rx Instructions .ROUTE .COMPLEX Qty: 30 0RF Hold Instructions: Doctor's Order Dose Instruction: TAKE 1 TABLET BY MOUTH DAILY NEEDED FOR DYSPNEA Rx Instructions: TAKE 1 TABLET BY MOUTH DAILY NEEDED FOR DYSPNEA albuterol sulfate 90 mcg/actuation Hfa Aerosol Inhaler 2 puff INHALATION Q4H PRN (Reason: Shortness Of Breath) metoprolol tartrate 100 mg tablet 50 mg PO BID Discharge Orders: Discharge ED (Routine); Ordered 02/09/23 Ordered By: Pool Graf Referrals: Walker Sarabia MD [Primary Care Provider] - Patient Instructions: Constipation (ED), Abdominal Pain (ED) Activity Restrictions/Additional Instructions: Follow-up with your family practitioner in approximately 1 week. Use MiraLAX 2 tablespoons twice a day until results then back down to 1 tablespoon twice a day. Coding Level of Care Code ED Drug Safety Assistant for aSlvador Obregon
[2023-02-09 15:18] LABS: Alanine Aminotransferase 24 U/L (0-41); Albumin Level 3.7 g/dL (3.5-5.2); Alkaline Phosphatase 39 U/L (40-130); Anion Gap 15.1 (5-19); Aspartate Amino Transferase 28 U/L (0-40); Blood Urea Nitrogen 6 mg/dL (6-20); Calcium 8.9 mg/dL (8.5-10.5); Carbon Dioxide 23 mmol/L (22-29); Chloride 99 mmol/L (98-107); Globulin 3.3 g/dL (1.3-4.6); Glomerular Filtration Rate 77.6 mL/min (90-130); Glucose 190 mg/dL (65-115); NT Pro B Type Natriuretic Pept 86 pg/mL (0-125); Osmolality Calculated 279 mOsm/kg (285-295); Potassium 4.1 mmol/L (3.5-5.1); Sodium 133 mmol/L (136-145); Total Bilirubin 0.4 mg/dL (0.15-1.2)
[2023-02-09 15:23] LABS: Lipase 37 U/L (13-60)
[2023-02-09 15:53] LABS: Add Urine Microscopic? NO; Charge for UA Resulting for Rev
--- NOTE | 2023-02-09 16:00 | CTR_ITS ---
PROCEDURE INFORMATION: Exam: CT Abdomen And Pelvis With Contrast Exam date and time: 02/09/2023 4:13 PM Age: 57 years old Clinical indication: Abdominal pain; Localized; Left lower quadrant (llq); Prior surgery; Surgery date: 6+ months; Surgery type: Appy, hernia; Additional info: Abd pain TECHNIQUE: Imaging protocol: Computed tomography of the abdomen and pelvis with contrast. Radiation optimization: All CT scans at this facility use at least one of these dose optimization techniques: automated exposure control; mA and/or kV adjustment per patient size (includes targeted exams where dose is matched to clinical indication); or iterative reconstruction. Contrast material: OMNI 350; Contrast volume: 100 ml; Contrast route: INTRAVENOUS (IV); REPORTING DATA: Count of CT and Cardiac NM exams in prior 12 months: This patient has received [address] and 0 known cardiac nuclear medicine studies in the 12 months prior to the current study. COMPARISON: CT abdomen pelvis w con* [id number] 08/07/2021 10:58 PM RADIATION DOSE METRICS: Total DLP (mGy-cm): 1139.33 FINDINGS: Liver: Diffuse hepatic lucency consistent with hepatic steatosis. No mass. Liver span is 20 cm corresponding to hepatomegaly Gallbladder and bile ducts: Normal. No calcified stones. No ductal dilation. Pancreas: Normal. No ductal dilation. Spleen: Normal. No splenomegaly. Adrenal glands: Normal. No mass. Kidneys and ureters: Left renal simple cyst measuring 22 mm No hydronephrosis. Stomach and bowel: There is diffuse colonic diverticulosis without diverticulitis. No obstruction. No mucosal thickening. Appendix: No evidence of appendicitis. Intraperitoneal space: Unremarkable. No free air. No significant fluid collection. Vasculature: Unremarkable. No abdominal aortic aneurysm. Lymph nodes: Unremarkable. No enlarged lymph nodes. Urinary bladder: Unremarkable as visualized. Reproductive: Unremarkable as visualized. Bones/joints: Unremarkable. No acute fracture. Soft tissues: Unremarkable. CT/CT abdomen pelvis w con* [id number] IMPRESSION: 1. Hepatomegaly and hepatic steatosis. 2. Colonic diverticulosis 3. Benign cortical cyst left kidney
[2023-02-09 16:12] LABS: Bilirubin Urine Neg (Negative); Blood Urine Neg (Negative); Glucose Urine UA Norm (Normal); Ketones Urine Negative (Negative); Leukocyte Esterase Urine Negative (Negative); Nitrate Urine Negative (Negative); Protein Urine Neg (Negative); Urine Appearance Clear (CLEAR); Urine Color Yellow (Yellow); Urobilinogen Urine Norm (Negative); pH Urine 6.5 (5-7)
[2023-02-09] MEDS: iohexol 350 mg/mL 500 mL Btl (per mL) IV (16:18)
== END 2023-02-09 18:00 | disposition home or self-care (01) ==
PROVIDERS: Emergency Provider Emergency Medicine; PCP Family Medicine
DX: K59.00 Constipation, unspecified (principal); R10.30 Lower abdominal pain, unspecified; I10 Essential (primary) hypertension
CPT/HCPCS: 71045; 74018; 74177; 80053; 81003; 83690; 83880; 85025; 99285; Q9967

== ENCOUNTER 2023-04-03 07:22 | Emergency (ER) | payer BC, SELFPAY ==
[2023-04-03] VITALS (7 sets, daily range): BP systolic 150–176; BP diastolic 97–126; PULSE 68–78; RESP 16–24; TEMP 36.9; O2SAT 93–98
--- NOTE | 2023-04-03 07:37 | ECG_ITS ---
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 Measurements Intervals [place] Rate: 67 P: 15 [place]: 179 QRS: 1 QRSD: 102 T: 51 QT: 398 QTc: 421 Interpretive Statements SINUS RHYTHM POSSIBLE RIGHT VENTRICULAR CONDUCTION DELAY [RSR (QR) IN V1/V2] NONSPECIFIC T-WAVE ABNORMALITY Compared to ECG 05/02/2022 12:29:22 T-wave abnormality now present Sinus bradycardia no longer present Electronically Signed On 04-03-2023 14:50:53 CDT by Felice Hughes M.D. [id number]
--- NOTE | 2023-04-03 07:37 | XR_ITS ---
WS: [id number] Portable AP upright chest, 04/03/2023 Clinical Data: dyspnea/cough Comparison: Portable chest, 02/09/2023 Findings: No nodules, masses or effusions are seen. The heart is normal. The pulmonary vascularity is not increased. No pneumonia or pneumothorax is seen. XR/XR chest 1V portable [id number] Impression: Negative chest.
[2023-04-03 07:58] LABS: Basophils # 0.1 10^3/uL (0.0-0.1); Basophils % 0.8 %; Eosinophils # 0.2 10^3/uL (0.0-0.8); Eosinophils % 3.6 %; Hematocrit 38.5 % (42.0-52.0); Hemoglobin 12.4 g/dL (11.7-16.6); Lymphocytes # 2.5 10^3/uL (0.8-4.8); Mean Corpuscular HGB Conc 32.2 g/dL (30.0-36.0); Mean Corpuscular Hemoglobin 29.2 pg (28.0-34.0); Mean Corpuscular Volume 90.6 fl (80-94); Mean Platelet Volume 9.4 fL (7.4-10.4); Monocytes # 0.6 10^3/uL (0.2-0.9); Monocytes % 9.3 %; Neutrophils # 2.78 10^3/uL (1.8-7.7); Neutrophils % 45.1 %; Nucleated Red Blood Cells % 0 %; Platelet Count 256 10^3/cmm (130-400); Red Blood Count 4.25 10^6/uL (4.1-5.3); Red Cell Distribution Width 15.2 % (12.1-15.1); White Blood Count 6.2 10^3/uL (4.0-10.0)
[2023-04-03 08:10] LABS: Blood Urea Nitrogen 11 mg/dL (6-20); Calcium 8.8 mg/dL (8.5-10.5); Carbon Dioxide 22 mmol/L (22-29); Chloride 100 mmol/L (98-107); Glomerular Filtration Rate 69.5 mL/min (90-130); Glucose 192 mg/dL (65-115); Osmolality Calculated 281 mOsm/kg (285-295); Sodium 133 mmol/L (136-145)
[2023-04-03] MEDS: ipratropium-albuterol 3 mL Neb INHALATION ×2 (08:35→09:56)
[2023-04-03] MEDS: dexamethasone 10 mg/mL INJ IVP (08:47)
--- NOTE | 2023-04-03 08:57 | ED_ITS ---
HPI - SOB/Dyspnea General: Chief Complaint: Shortness of Breath/Dyspnea Stated Complaint: cough/fever/chest hurts when he breathes Time Seen by Provider: 04/03/23 07:30 Source: patient Mode of arrival: ambulatory History of Present Illness: HPI Narrative: 57-year-old male presents emergency room with cough fever wheezing and rhonchi. He states this began 9 days prior. He has had a productive cough. Denies any hemoptysis. No fevers sweats or chills. He does have improvement with albuterol. He has a known history of asthma. MD elicited complaint: shortness of breath and cough Pertinent past history: asthma Onset (ago): minute(s) Timing: constant Severity: moderate Exacerbating factors: coughing and inspiration Relieving factors: rest and bronchodilators Known history of: asthma Associated symptoms: Reports chest congestion and cough; Deny abdominal pain, chest pain, diaphoresis, dizziness, extremity pain, fever(s), hemoptysis, lightheadedness, myalgias, nausea, orthopnea, palpitations, paresthesias, polydipsia, polyuria, rash, sense of impending doom, syncope or vomiting Treatment prior to arrival: none Review of Systems Const: Denies: fever(s) or diaphoresis Card: Denies: chest pain, palpitations, lightheadedness, syncope or orthopnea Resp: Reports: chest congestion; Denies: hemoptysis GI: Denies: abdominal pain, nausea or vomiting Musc: Denies: extremity pain Neuro: Denies: dizziness Endo: Denies: polyuria or polydipsia PFSH ED PFSH: Medical History Asthma Chest pain Chronic steroid use High risk medication use HTN (hypertension) Hypertension Immunization counseling Major depressive disorder Polymyalgia rheumatica Surgical History H/O esophagogastroduodenoscopy H/O hand surgery H/O knee surgery History of appendectomy History of nasal surgery History of umbilical hernia repair (01/26/20) Status post colonoscopy Family History Father Lung disease Asthma Denies family history of Diabetes Clotting disorder Dementia Chronic kidney disease (CKD) Social History Smoking and tobacco status: never smoked Alcohol intake: never Substance/Drug Use: never Lives independently: Yes Household members: spouse Marital status: Current occupational status: employed Current occupational exposures/hazards: Yes Do you think of yourself as: Straight/Heterosexual Current gender identity: Male Physical Exam Const: GENERAL APPEARANCE: cooperative and comfortable O RIENTATION/CONSCIOUSNESS: Yes awake, Yes oriented to person, Yes oriented to place and Yes oriented to time HENMT: COMMON NORMALS: normocephalic, atraumatic and hearing grossly normal bilaterally HEAD & SCALP: normocephalic and atraumatic Resp: AUSCULTATION: rhonchi and wheezes Cardio: COMMON NORMALS: regular rate, regular rhythm and No murmurs present (Cardio) RATE: regular rate RHYTHM: regular rhythm GI: COMMON NORMALS: Soft to palpation and No hepatosplenomegaly present AUSCULTATION: Yes normoactive bowel sounds PALPATION: Yes Soft to palpation, No Tenderness to palpation present (GI), No Guarding due to palpation present (GI) and Yes No hepatosplenomegaly present Extremity: COMMON NORMALS: normal to inspection, capillary refill normal, no clubbing, cyanosis or edema, no calf tenderness and no pedal edema Neuro: SENSORIUM/ORIENTATION: Yes oriented to person, Yes oriented to place and Yes oriented to time Skin: COMMON NORMALS: no rashes or lesions noted GENERAL SKIN EXAM: no rashes or lesions noted Course Vital Signs: Vital signs: Vital Signs Temperature 98.4 F 04/03/23 07:29 Pulse Rate 78 04/03/23 09:58 Respiratory Rate 16 04/03/23 09:55 Blood Pressure 150/97 04/03/23 10:56 Pulse Oximetry 98 04/03/23 10:56 Oxygen Delivery Me thod Room Air 04/03/23 09:55 MDM - SOB/Dyspnea Medical Decision Making Asthma exacerbation no evidence of pneumonia. Patient has minimally productive cough at this time. Discharge home with nebulizer with DuoNebs as well as debra roids. Patient is currently on doxycycline continue that antibiotic. Lab Data 04/03/23 07:45 04/03/23 07:45 Labs/Radiology: Radiology Impressions Chest X-Ray 04/03/23 07:37 Impression: Negative chest. Laboratory Results WBC 6.2 10^3/uL (4.0-10.0) 04/03/23 07:45 RBC 4.25 10^6/uL (4.1-5.3) 04/03/23 07:45 Hgb 12.4 g/dL (11.7-16.6) 04/03/23 07:45 Hct 38.5 % (42.0-52.0) L 04/03/23 07:45 MCV 90.6 fl (80-94) 04/03/23 07:45 MCH 29.2 pg (28.0-34.0) 04/03/23 07:45 MCHC 32.2 g/dL (30.0-36.0) 04/03/23 07:45 RDW 15.2 % (12.1-15.1) H 04/03/23 07:45 Plt Count 256 10^3/cmm (130-400) 04/03/23 07:45 MPV 9.4 fL (7.4-10.4) 04/03/23 07:45 Neut % (Auto) 45.1 % 04/03/23 07:45 Lymph % (Auto) 41.0 % 04/03/23 07:45 [place] % (Auto) 9.3 % 04/03/23 07:45 Eos % (Auto) 3.6 % 04/03/23 07:45 Baso % (Auto) 0.8 % 04/03/23 07:45 Neut # (Auto) 2.78 10^3/uL (1.8-7.7) 04/03/23 07:45 Lymph # (Auto) 2.5 10^3/uL (0.8-4.8) 04/03/23 07:45 [place] # (Auto) 0.6 10^3/uL (0.2-0.9) 04/03/23 07:45 Eos # (Auto) 0.2 10^3/uL (0.0-0.8) 04/03/23 07:45 Baso # (Auto) 0.1 10^3/uL (0.0-0.1) 04/03/23 07:45 Nucleated RBC % (auto) 0 % 04/03/23 07:45 Nucleated RBCs # 0.0 /100WBC 04/03/23 07:45 Sodium 133 mmol/L (136-145) L 04/03/23 07:45 Potassium 4.0 mmol/L (3.5-5.1) 04/03/23 07:45 Chloride 100 mmol/L (98-107) 04/03/23 07:45 Carbon Dioxide 22 mmol/L (22-29) 04/03/23 07:45 Anion Gap 15.0 (5-19) 04/03/23 07:45 BUN 11 mg/dL (6-20) 04/03/23 07:45 Creatinine 1.1 mg/dL (0.7-1.2) 04/03/23 07:45 GFR Calculation 69.5 mL/min (90-130) L 04/03/23 07:45 Glucose 192 mg/dL (65-115) H 04/03/23 07:45 Calculated Osmolality 281 mOsm/kg (285-295) L 04/03/23 07:45 Calcium 8.8 mg/dL (8.5-10.5) 04/03/23 07:45 Coronavirus 229E (PCR) Not detected (NOT DETECT) 04/03/23 08:05 SARS-CoV-2 (PCR) Not detected (NOT DETECT) 04/03/23 08:05 Discharge Plan Discharge Patient Disposition: Home Clinical Impression: Asthma with exacerbation Condition: Stable Prescriptions: New ipratropium-albuterol 0.5 mg-3 mg(2.5 mg base)/3 mL solution for nebulization 3 ml inhalation Q4H PRN (Reason: shortness of breath or wheezing) Qty: 180 0RF Rx Instructions: until breathing returns to target peak flow/parameters No Action ergocalciferol (vitamin D2) 1,250 mcg (50,000 unit) capsule 1,250 mcg PO .weekly Qty: 15 1RF Rx Instructions: Once a week on sundays folic acid 1 mg tablet 1 mg PO DAILY fluticasone propionate [Flonase Allergy Relief] 50 mcg/actuation spray,suspension 1 spray intranasal BID PRN (Reason: nasal congestion) Qty: 16 0RF Rx Instructions: administer into each nostril doxycycline hyclate 100 mg capsule 100 mg PO BID 7 Days Qty: 14 0RF prednisone 20 mg tablet 40 mg PO DAILY 5 Days Qty: 10 0RF Trelegy Ellipta 100-62.5-25 mcg blister with device 1 inh inhalation DAILY PRN famotidine [Pepcid] 20 mg tablet 20 mg PO BID 7 Days Qty: 14 0RF omeprazole 20 mg capsule,delayed release(DR/EC) See Rx Instructions .ROUTE .COMPLEX Qty: 90 3RF Dose Instruction: TAKE 1 CAPSULE BY MOUTH EVERY DAY Rx Instructions: TAKE 1 CAPSULE BY MOUTH EVERY DAY amlodipine 2.5 mg tablet See Rx Instructions .ROUTE .COMPLEX Qty: 180 2RF Dose Instruction: TAKE 1 TABLET BY MOUTH ONCE A DAY INCREASE TO TWO TABLET DAILY IF BLOOD PRESSURE STAYS OVER 140/90 Rx Instructions: TAKE 1 TABLET BY MOUTH ONCE A DAY INCREASE TO TWO TABLET DAILY IF BLOOD PRESSURE STAYS OVER 140/90 hydrochlorothiazide 25 mg tablet See Rx Instructions .ROUTE .COMPLEX Qty: 90 3RF Dose Instruction: TAKE 1 TABLET BY MOUTH EVERY DAY FOR HIGH BLOOD PRESSURE Rx Instructions: TAKE 1 TABLET BY MOUTH EVERY DAY FOR HIGH BLOOD PRESSURE losartan 100 mg tablet See Rx Instructions .ROUTE .COMPLEX Qty: 90 3RF Dose Instruction: TAKE 1 TABLET BY MOUTH EVERY DAY FOR HIGH BLOOD PRESSURE Rx Instructions: TAKE 1 TABLET BY MOUTH EVERY DAY FOR HIGH BLOOD PRESSURE citalopram 20 mg tablet See Rx Instructions .ROUTE .COMPLEX Qty: 90 3RF Dose Instruction: TAKE 1 TABLET BY MOUTH EVERY DAY Rx Instructions: TAKE 1 TABLET BY MOUTH EVERY DAY prednisone 20 mg tablet See Rx Instructions .ROUTE .COMPLEX Qty: 30 0RF Hold Instructions: Doctor's Order Dose Instruction: TAKE 1 TABLET BY MOUTH DAILY NEEDED FOR DYSPNEA Rx Instructions: TAKE 1 TABLET BY MOUTH DAILY NEEDED FOR DYSPNEA metoprolol tartrate 100 mg tablet See Rx Instructions .ROUTE .COMPLEX Qty: 180 3RF Dose Instruction: TAKE 1 TABLET BY MOUTH TWICE A DAY FOR HIGH BLOOD PRESSURE Rx Instructions: TAKE 1 TABLET BY MOUTH TWICE A DAY FOR HIGH BLOOD PRESSURE albuterol sulfate 90 mcg/actuation Hfa Aerosol Inhaler 2 puff INHALATION Q4H PRN (Reason: Shortness Of Breath) Discharge Orders: Discharge ED (Routine); Ordered 04/03/23 Ordered By: Horace Hudson Other Ambulatory Orders: DME: Nebulizer with Neb Kit (Order) Location: None Selected Ordered By: Horace Hudson Referrals: Walker Sarabia MD [Primary Care Provider] - Discharge Diet: Usual diet Discharge Activity: Increase activity as tolerated Patient Instructions: Opioid Safety, Pain Management Activity Restrictions/Additional Instructions: You were seen today for exacerbation of your asthma. Continue doxycycline and prednisone. Use nebulizer every 4 hours while awake as needed. Follow-up with your primary care doctor early next week. Coding Level of Care Code ED Yard Crane Operator for Salvador Obregon
[2023-04-03] MEDS: hyDRALAzine 20 mg/mL INJ 1 mL IVP (09:35)
[2023-04-03 10:08] LABS: Adenovirus Not Detected (NOT DETECT); Chlamydia Pneumoniae Not Detected (NOT DETECT); Coronavirus 229E,HKU1,NL63,OC4 Not Detected (NOT DETECT); Human Metapneumovirus Not Detected (NOT DETECT); Human Rhinovirus/Enterovirus Not Detected (NOT DETECT); Influenza A Not Detected (NOT DETECT); Influenza A H1 Not Detected (NOT DETECT); Influenza A H1-2009 Not Detected (NOT DETECT); Influenza A H3 Not Detected (NOT DETECT); Influenza B Not Detected (NOT DETECT); Mycoplasma Pneumoniae Not Detected (NOT DETECT); Parainfluenza Virus Type 1 Not Detected (NOT DETECT); Parainfluenza Virus Type 2 Not Detected (NOT DETECT); Parainfluenza Virus Type 3 Not Detected (NOT DETECT); Parainfluenza Virus Type 4 Not Detected (NOT DETECT); Respiratory Syncytial Virus A Not Detected (NOT DETECT); Respiratory Syncytial Virus B Not Detected (NOT DETECT); SARS-COV-2 Not Detected (NOT DETECT)
== END 2023-04-03 10:56 | disposition home or self-care (01) ==
PROVIDERS: Emergency Provider Family Medicine; PCP Family Medicine
DX: J45.901 Unspecified asthma with (acute) exacerbation (principal)
CPT/HCPCS: 71045; 80048; 85025; 87635; 93005; 94640; 96374; 96375; 99285; J0360; J1100

== ENCOUNTER 2023-06-13 23:41 | Inpatient (IN) | payer OTHER, SELFPAY ==
[2023-06-13 23:47] VITALS: BP 186/129; PULSE 89; RESP 18; TEMP 37.1; O2SAT 95; BMI 36.1
[2023-06-14] VITALS (15 sets, daily range): BP systolic 103–196; BP diastolic 66–119; PULSE 63–92; RESP 16–20; TEMP 36.6–36.9; O2SAT 93–95
[2023-06-14 00:16] LABS: Basophils % 0.4 %; Eosinophils # 0.2 10^3/uL (0.0-0.8); Eosinophils % 2.5 %; Hematocrit 44.2 % (37-53); Lymphocytes # 1.8 10^3/uL (0.8-4.8); Lymphocytes % 27.3 %; Mean Corpuscular HGB Conc 32.8 g/dL (30-55); Mean Corpuscular Hemoglobin 29.6 pg (27-33); Mean Corpuscular Volume 90.2 fl (82-101); Mean Platelet Volume 9.5 fL (7.4-10.4); Monocytes # 0.8 10^3/uL (0.2-0.9); Monocytes % 12.4 %; Neutrophils # 3.82 10^3/uL (1.8-7.7); Neutrophils % 57.1 %; Nucleated Red Blood Cells % 0 %; Platelet Count 284 10^3/cmm (157-399); Red Cell Distribution Width 14.5 % (12.1-15.1)
--- NOTE | 2023-06-14 00:28 | ED.C_ITS ---
HPI - Psych General: Chief Complaint: Psychiatric Symptoms Stated Complaint: Si Time Seen by Provider: 06/14/23 00:03 History of Present Illness: 57-year-old male patient with a history of depression. He presents with increasing depression. He says he has had some suicidal thoughts. He has been not getting along with his , and has not been home. He has not had his medication in a few days. He notes that he would probably hang himself with a ratchet straps in his truck. He is asking for treatment, and admission to the neuropsychiatric unit. He denies recent illness otherwise. He does have a history of hypertension Review of Systems Const: Denies: fever(s), chills or body aches Eyes: Denies: change in vision Card: Denies: chest pain or palpitations Resp: Denies: dyspnea, productive cough, non-productive cough or wheezing GI: Denies: abdominal pain, nausea, vomiting, diarrhea or hematochezia Skin/Breast: Denies: rash Neuro: Denies: headache(s), weakness in extremities, dizziness or confusion [facility] ED PFSH: Medical History Asthma Chest pain Chronic steroid use High risk medication use HTN (hypertension) Hypertension Immunization counseling Major depressive disorder Polymyalgia rheumatica Surgical History H/O esophagogastroduodenoscopy H/O hand surgery H/O knee surgery History of appendectomy History of nasal surgery History of umbilical hernia repair (01/26/20) Status post colonoscopy Family History Father Lung disease Asthma Denies family history of Diabetes Clotting disorder Dementia Chronic kidney disease (CKD) Social History Smoking and tobacco status: never smoked Alcohol intake: never Substance/Drug Use: never Lives independently: Yes Household members: spouse Marital status: Current occupational status: employed Current occupational exposures/hazards: Yes Do you think of yourself as: Straight/Heterosexual Current gender identity: Male Physical Exam Const: COMMON NORMALS: no acute distress GENERAL APPEARANCE: cooperative; not ill appearing and not frail appearing HENMT: COMMON NORMALS: normocephalic, atraumatic and Normal external nose present HEAD & SCALP: normocephalic and atraumatic FACE & SINUS: normal facial exam and face symmetric NOSE: Normal external nose present Eye: COMMON NORMALS: Equal, round and reactive pupils present and EOMs intact bilaterally PUPIL: Yes Equal, round and reactive pupils present Neck/C-Spine: GENERAL: Yes trachea midline Chest: CHEST: Yes Symmetrical chest wall rise Resp: COMMON NORMALS: normal respiratory effort, No retractions, No use of accessory muscles and clear to auscultation bilaterally AUSCULTATION: clear to auscultation bilaterally Cardio: COMMON NORMALS: regular rate and regular rhythm RATE: regular rate RHYTHM: regular rhythm GI: COMMON NORMALS: Normal to inspection, nondistended, normoactive bowel sounds present Extremity: COMMON NORMALS: no pedal edema Neuro: NORRIS COMA SCALE: document GCS findings Norris coma scale eye opening: Spontaneous Norris coma scale verbal response: Orientated Norris coma scale motor response: Obey commands [place] coma scale total score: 15 SENSORY EXAM: Yes extremities (intact) Psych: COMMON NORMALS: speech normal SPEECH: Yes normal speech Skin: COMMON NORMALS: no rashes or lesions noted GENERAL SKIN EXAM: no rash es or lesions noted Course Vital Signs: Vital signs: Vital Signs Temperature 98.7 F 06/13/23 23:47 Pulse Rate 89 06/13/23 23:47 Respiratory Rate 18 06/13/23 23:47 Blood Pressure 196/119 06/14/23 00:46 Pulse Oximetry 95 06/13/23 23:47 Oxygen Delivery Me thod Room Air 06/13/23 23:47 MDM - Psych Medical Decision Making Patient is hypertensive here. He is given clonidine and amlodipine. He will be prescribed amlodipine daily. He has been cooperative. He is seeking treatment, and is therefore voluntary. Medically, he appears stable otherwise. Blood pressure is beginning to come down. Spoke with psychiatry. Willing to ad mandy to NPU. Lab Data 06/14/23 00:05 06/14/23 00:05 Laboratory Results WBC 6.70 10^3/uL (3.29-11.43) 06/14/23 00:05 RBC 4.90 10^6/uL (3.85-5.65) 06/14/23 00:05 Hgb 14.50 g/dL (11.27-16.99) 06/14/23 00:05 Hct 44.2 % (37-53) 06/14/23 00:05 MCV 90.2 fl (82-101) 06/14/23 00:05 MCH 29.6 pg (27-33) 06/14/23 00:05 MCHC 32.8 g/dL (30-55) 06/14/23 00:05 RDW 14.5 % (12.1-15.1) 06/14/23 00:05 Plt Count 284 10^3/cmm (157-399) 06/14/23 00:05 MPV 9.5 fL (7.4-10.4) 06/14/23 00:05 Neut % (Auto) 57.1 % 06/14/23 00:05 Lymph % (Auto) 27.3 % 06/14/23 00:05 [place] % (Auto) 12.4 % 06/14/23 00:05 Eos % (Auto) 2.5 % 06/14/23 00:05 Baso % (Auto) 0.4 % 06/14/23 00:05 Neut # (Auto) 3.82 10^3/uL (1.8-7.7) 06/14/23 00:05 Lymph # (Auto) 1.8 10^3/uL (0.8-4.8) 06/14/23 00:05 [place] # (Auto) 0.8 10^3/uL (0.2-0.9) 06/14/23 00:05 Eos # (Auto) 0.2 10^3/uL (0.0-0.8) 06/14/23 00:05 Baso # (Auto) 0.0 10^3/uL (0.0-0.1) 06/14/23 00:05 Nucleated RBC % (auto) 0 % 06/14/23 00:05 Nucleated RBCs # 0.0 /100WBC 06/14/23 00:05 Sodium 137 mmol/L (136-145) 06/14/23 00:05 Potassium 4.4 mmol/L (3.5-5.1) 06/14/23 00:05 Chloride 99 mmol/L (98-107) 06/14/23 00:05 Carbon Dioxide 29 mmol/L (22-29) 06/14/23 00:05 Anion Gap 13.4 (5-19) 06/14/23 00:05 BUN 12 mg/dL (6-20) 06/14/23 00:05 Creatinine 1.2 mg/dL (0.7-1.2) 06/14/23 00:05 GFR Calculation 62.9 mL/min (90-130) L 06/14/23 00:05 Glucose 109 mg/dL (65-115) 06/14/23 00:05 Calculated Osmolality 284 mOsm/kg (285-295) L 06/14/23 00:05 Calcium 10.6 mg/dL (8.5-10.5) H 06/14/23 00:05 Total Bilirubin 0.4 mg/dL (0.15-1.2) 06/14/23 00:05 AST 40 U/L (0-40) 06/14/23 00:05 ALT 47 U/L (0-41) H 06/14/23 00:05 Alkaline Phosphatase 46 U/L (40-130) 06/14/23 00:05 Total Protein 8.0 g/dL (6.6-8.7) 06/14/23 00:05 Albumin 4.8 g/dL (3.5-5.2) 06/14/23 00:05 Globulin 3.2 g/dL (1.3-4.6) 06/14/23 00:05 TSH 2.20 uIU/mL (0.27-4.20) 06/14/23 00:05 Salicylates 0.6 mg/dL (3-10) L 06/14/23 00:05 Acetaminophen < 5.0 ug/mL (10-30) L 06/14/23 00:05 Ethyl Alcohol < 10 mg/dL (0-10) 06/14/23 00:05 No radiology studies performed this visit Discharge Plan Discharge Patient Disposition: Admitted As Inpatient Clinical Impression: Suicidal ideation Condition: Stable Coding Level of Care Code ED Organic Section Technical Lead for Salvador Obregon
[2023-06-14] MEDS: cloNIDine 0.1 mg Tablet PO (00:46)
[2023-06-14] MEDS: amlodipine 10 mg Tablet PO ×2 (00:47→09:17)
[2023-06-14 00:51] LABS: Alanine Aminotransferase 47 U/L (0-41); Albumin Level 4.8 g/dL (3.5-5.2); Alkaline Phosphatase 46 U/L (40-130); Anion Gap 13.4 (5-19); Aspartate Amino Transferase 40 U/L (0-40); Blood Urea Nitrogen 12 mg/dL (6-20); Calcium 10.6 mg/dL (8.5-10.5); Carbon Dioxide 29 mmol/L (22-29); Chloride 99 mmol/L (98-107); Globulin 3.2 g/dL (1.3-4.6); Glomerular Filtration Rate 62.9 mL/min (90-130); Glucose 109 mg/dL (65-115); Osmolality Calculated 284 mOsm/kg (285-295); Potassium 4.4 mmol/L (3.5-5.1); Salicylate 0.6 mg/dL (3-10); Sodium 137 mmol/L (136-145); Total Bilirubin 0.4 mg/dL (0.15-1.2)
[2023-06-14 00:53] LABS: Acetaminophen < 5.0 ug/mL (10-30); Alcohol Level < 10 mg/dL (0-10)
[2023-06-14 02:02] LABS: Add Urine Microscopic? NO; Charge for UA Resulting for Rev
[2023-06-14 02:04] LABS: Bilirubin Urine Neg (Negative); Blood Urine Neg (Negative); Glucose Urine UA Norm (Normal); Ketones Urine Negative (Negative); Leukocyte Esterase Urine Negative (Negative); Nitrate Urine Negative (Negative); Protein Urine Neg (Negative); Urine Appearance Clear (CLEAR); Urine Color Yellow (Yellow); Urobilinogen Urine Neg (Negative); pH Urine 6 (5-7)
[2023-06-14] MEDS: calcium carbonate 500 mg Chew Tablet 1000 MG PO (02:06)
[2023-06-14 02:12] LABS: Amphetamines Screen Urine Negative (Negative); Barbiturates Screen Urine Negative (Negative); Benzodiazepines Screen Urine Negative (Negative); Cocaine Screen Urine Negative (Negative); Opiate Screen Urine Negative (Negative); PCP Screen Urine Negative (Negative); THC Screen Urine Negative (Negative)
[2023-06-14] MEDS: hyDROXYzine 25 mg Capsule 50 MG PO ×2 (02:21→11:32)
--- NOTE | 2023-06-14 02:39 | PC.NURSE ---
Pt arrived to NPU w/RN and security at side at approximately 0130. Pt is anxious, but is cooperative w/assessment. Notified RT d/t pt SOB w/exp wheezing present on assessment as well as use of a ASV device at home that is like a cpap and he needs it to sleep. Awaiting RT arrival.
[2023-06-14] MEDS: metoprolol tartrate 50 mg Tablet 100 MG PO ×3 (02:49→17:11)
[2023-06-14] MEDS: albuterol 2.5 mg/3 mL Neb INHALATION (03:06)
[2023-06-14] MEDS: budesonide 0.5 mg/2 mL Neb INHALATION ×2 (07:41→20:08)
[2023-06-14] MEDS: ipratropium-albuterol 3 mL Neb INHALATION ×4 (07:41→20:08)
[2023-06-14] MEDS: pantoprazole DR 40 mg Tablet PO (09:16)
[2023-06-14] MEDS: citalopram 20 mg Tablet PO (09:17)
[2023-06-14] MEDS: losartan 50 mg Tablet 100 MG PO (09:18)
[2023-06-14] MEDS: hydroCHLOROthiazide 25 mg Tablet PO (09:20)
--- NOTE | 2023-06-14 16:49 | W.PM.NPUH&PS ---
Providers/Chief Complaint Admitting Physician: Jese Disla MD Primary Care Provider: Walker Sarabia MD Chief Complaint: SI HPI NPU History of Present Illness Madi Lowe is a 57 year old male with a history of multiple inpatient hospitalizations last admitted psychiatrically approximately 10 years ago who presented to the emergency department stating that he would hang self with ratchet straps on his truck. The patient reports that he has had more frequent suicidal thoughts for the past several months since he had lost his job at a [employer]. He reports that he had an argument with his after she had learned that he had been having an emotional affair with another woman at work. He also reports significant financial stressors as he has been unable to maintain a job and pay his bills on his new home. She had asked the patient to leave the home and the patient reports that he has been feeling more hopeless over the past few days. He reports low energy, anhedonia, increased anxiety and chronic sleep continuity disruption. He reports that he frequently feels sad about the future and states that he is been battling depression for several months. He had reported a past history of major depressive episodes that had remitted but states that his depression has been worse. He had reported having no recent psychotherapy. He reports having chronic problems with anxiety and states that he feels that his worry is out of control. The patient reports feelings of loneliness and isolation. He reports having difficulties with managing his stress. The patient denies any history of psychosis. He denies any history of substance abuse. He reports no history of khadar. He reports having frequent problems with muscle tension and reports having difficulties with concentration. He denies any history of panic attacks. Inpatient psychiatric history: He reports having several inpatient hospitalizations with his most recent hospitalization having occurred 10 years ago. He has a significant history of overdose on pills in the past with suicidal intent. Outpatient psychiatric history: None, he has been prescribed Celexa 20 mg daily by his primary care physician. Drug and alcohol history: None reported Allergies: No known drug allergies Medical history: Asthma, hypertension, gastroesophageal reflux disease, probably myalgia rheumatica, obstructive sleep apnea Surgical history: History of hand surgery, history of knee surgery, history of appendectomy, history of nasal surgery, history of umbilical hernia repair Current medications: Celexa 20 mg daily, albuterol, hydrochlorothiazide, ipratropium, losartan, metoprolol, omeprazole, prednisone Legal history: None history: None Family psychiatric history: None Social history: Patient was born in [place] and raised by his biological parents. He had graduated from high school. He has 2 siblings. He had reported no prior history of trauma. He has reported that he has been 2 times and his current marriage has been 12 years. He has 2 adult grown children from a previous marriage. He denied any history of sexual physical or emotional abuse. 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 He had been living with his in [facility] and reports significant financial stressors. He had reported no history of learning disorders or any history of developmental delays. Meds NPU Home Medications Medication Instructions Recorded Confirmed Last Taken Type albuterol sulfate 90 mcg/actuation 2 puff inhalation Q4H PRN 01/12/21 06/14/23 Unknown History aerosol inhaler Shortness Of Breath omeprazole 20 mg capsule,delayed See Rx Instructions .Route 09/02/22 06/14/23 Unknown Rx release .COMPLEX #90 caps fluticasone fur. 100 mcg-umeclid 1 inh inhalation DAILY PRN 10/08/22 06/14/23 Unknown History 62.5 mcg-vilant 25 mcg Shortness Of Breath Or Wheezing inhalat.powder (Trelegy Ellipta) fluticasone propionate 50 1 spray intranasal BID PRN nasal 10/24/22 06/14/23 Unknown Rx mcg/actuation nasal congestion #16 grams spray,suspension (Flonase Allergy Relief) citalopram 20 mg tablet See Rx Instructions .Route 11/11/22 06/14/23 Unknown Rx .COMPLEX #90 tabs hydrochlorothiazide 25 mg tablet See Rx Instructions .Route 11/11/22 06/14/23 Unknown Rx .COMPLEX #90 tabs losartan 100 mg tablet See Rx Instructions .Route 11/11/22 06/14/23 Unknown Rx .COMPLEX #90 tabs prednisone 20 mg tablet See Rx Instructions .Route 01/24/23 06/14/23 Unknown Rx .COMPLEX #30 tabs ipratropium 0.5 mg-albuterol 3 mg 3 ml inhalation Q4H PRN shortness 04/03/23 06/14/23 Unknown Rx (2.5 mg base)/3 mL nebulization of breath or wheezing #180 mL soln metoprolol tartrate 100 mg tablet See Rx Instructions .Route 04/03/23 06/14/23 Unknown Rx .COMPLEX #180 tabs Nebulizer machine with mask and #1 ea 04/11/23 06/14/23 Unknown Rx tubing Allergies Allergy/AdvReac Type Severity Reaction Status Date / Time No Known Allergies Allergy Verified 04/03/23 07:35 PFSH NPU PFSH: Medical History Asthma Chest pain Chronic steroid use High risk medication use HTN (hypertension) Hypertension Immunization counseling Major depressive disorder Polymyalgia rheumatica Surgical History H/O esophagogastroduodenoscopy H/O hand surgery H/O knee surgery History of appendectomy History of nasal surgery History of umbilical hernia repair (01/26/20) Status post colonoscopy Family History Father Lung disease Asthma Denies family history of Diabetes Clotting disorder Dementia Chronic kidney disease (CKD) Social History Smoking and tobacco status: never smoked Alcohol intake: never Substance/Drug Use: never Lives independently: Yes Household members: spouse Marital status: Current occupational status: employed Current occupational exposures/hazards: Yes Do you think of yourself as: Straight/Heterosexual Current gender identity: Male Mental Status Exam MSE Comments: Is a casually dressed obese white male who appeared his stated age. His hygiene was fair. There was no evidence of any abnormal involuntary motor movements tics or tremors appreciated. There was significant psychomotor retardation. His speech was monotone in quality and decreased in volume and decreased in rate. His thought process was linear logical and goal-directed. His thought content showed evidence of suicidal ideation with a plan to hang himself. He denied any homicidal ideation. He did not appear to be responding to internal stimuli. There was no evidence of delusional thinking. His mood was described as depressed. His affect was restricted in range and mood-congruent. He was alert and oriented to person place and time. His recent and remote memory appeared grossly intact. His insight is poor. His judgment is poor. His impulse control appeared limited at this time. Vitals/I&O/Wt Last Vital Signs Temp 98.4 F 06/14/23 13:24 Pulse 67 06/14/23 15:30 Resp 18 06/14/23 15:30 BP 103/66 06/14/23 13:24 Pulse Ox 95 06/14/23 15:30 O2 Del Method Room Air 06/14/23 15:30 Weight last 48 hrs Weight 111.13 kg Data NPU 06/14/23 00:05 06/14/23 00:05 A&P Assessment and plan (1) Major depressive disorder, recurrent episode: (2) Generalized anxiety disorder: (3) Suicidal ideation: Plan 57-year-old white male with a past history of major depressive episodes currently endorsing depressed mood and generalized anxiety disorder in the context of increased stressors at home. 1.?Encourage individual, group and milieu therapy. 2.?? Recommend sober living treatment at the highest level of care to which the patient is willing to commit. 3.? Continue q-15 minute checks for safety.? 4. Restart outpatient medications with increase in Celexa to 40 mg daily. Involuntary Hold Information 96 Hour Hold: 96 Hour Involuntary Admission: No Attestations NPU Medical Necessity Statement*: Inpatient hospitalization is medically necessary and deemed to be the clinically appropriate intervention at this time. ? We will monitor/initiate medications and make changes as indicated.? He will be in the hospital for over 2 midnights.? His likely length of stay 3-5 days. Coding Level of Care Code Acute Code for [facility] Fwd Diagnoses Major depressive disorder, recurrent episode F33.9 Generalized anxiety disorder F41.1 Suicidal ideation R45.851
[2023-06-15] VITALS (9 sets, daily range): BP systolic 85–144; BP diastolic 57–87; PULSE 70–84; RESP 15–22; TEMP 36.8; O2SAT 92–98
[2023-06-15] MEDS: trazodone 50 mg Tablet PO ×2 (00:19→20:16)
[2023-06-15] MEDS: budesonide 0.5 mg/2 mL Neb INHALATION (07:53)
[2023-06-15] MEDS: ipratropium-albuterol 3 mL Neb INHALATION ×3 (07:53→15:39)
[2023-06-15] MEDS: citalopram 20 mg Tablet 40 MG PO (10:03)
[2023-06-15] MEDS: metoprolol tartrate 50 mg Tablet 100 MG PO (10:03)
[2023-06-15] MEDS: losartan 50 mg Tablet 100 MG PO (10:04)
[2023-06-15] MEDS: hydroCHLOROthiazide 25 mg Tablet PO (10:04)
[2023-06-15] MEDS: amlodipine 10 mg Tablet PO (10:04)
[2023-06-15] MEDS: pantoprazole DR 40 mg Tablet PO (10:04)
--- NOTE | 2023-06-15 11:48 | W.PM.NPUPNS ---
Subjective NPU Subjective: 57-year-old white male admitted with worsening depression and suicidal ideation with a plan to hang himself. Patient had reported feeling excessively tired and reported low motivation. He reported no side effects from his citalopram increased to 40 mg. He had continued to report having excessive worry regarding a myriad of different things in his life. He had reported having difficulties with managing his worry. He had reported a past history of recurrent depression with no history of khadar. Patient had isolated himself in the room most of the afternoon. He had reported that he had felt frequently sluggish during the daytime and reported that his sense of hopelessness was still prominent. Patient had reported that he was feeling a little better . Mental Status Exam MSE Comments: Is a casually dressed obese white male who appeared his stated age. His hygiene was fair. There was no evidence of any abnormal involuntary motor movements tics or tremors appreciated other than significant psychomotor slowing. His speech was monotone in quality and decreased in volume and decreased in rate. His thought process was linear logical and goal-directed. His thought content showed evidence of suicidal ideation with a plan to hang himself. He denied any homicidal ideation. He did not appear to be responding to internal stimuli. There was no evidence of delusional thinking. His mood was described as depressed today. His affect was restricted in range and mood-congruent. He was alert and oriented to person place and time. His recent and remote memory appeared grossly intact. His insight is poor. His judgment is poor. His impulse control appeared limited at this time. Vitals/I&O/Wt Last Vital Signs Temp 98.3 F 06/14/23 20:25 Pulse 70 06/15/23 11:31 Resp 22 H 06/15/23 11:31 BP 144/83 06/15/23 10:04 Pulse Ox 98 06/15/23 11:31 O2 Del Method Room Air 06/15/23 11:31 Weight last 48 hrs Weight 115.938 kg Weight 111.13 kg Data NPU 06/14/23 00:05 06/14/23 00:05 A&P Assessment and plan (1) Major depressive disorder, recurrent episode: (2) Generalized anxiety disorder: (3) Suicidal ideation: Plan 57-year-old white male with a past history of major depressive episodes currently endorsing depressed mood and generalized anxiety disorder in the context of increased stressors at home. 1.?Encourage individual, group and milieu therapy. 2.?? Recommend sober living treatment at the highest level of care to which the patient is willing to commit. 3.? Continue q-15 minute checks for safety.? 4. Continue Celexa 40mg daily, add abilify 2mg daily to target depression adjunctively. Involuntary Hold Information 96 Hour Hold: 96 Hour Involuntary Admission: No Attestations NPU Medical Necessity Statement*: Inpatient hospitalization is medically necessary and deemed to be the clinically appropriate intervention at this time. ? We will monitor/initiate medications and make changes as indicated.? His likely length of stay is 5-7 days. Coding Level of Care Code Acute Code for [facility] Fwd Diagnoses Major depressive disorder, recurrent episode F33.9 Generalized anxiety disorder F41.1 Suicidal ideation R45.859
[2023-06-15] MEDS: ARIPiprazole 2 mg Tablet PO (13:15)
[2023-06-16 06:00] VITALS: BP 116/72; PULSE 79; RESP 16; O2SAT 95
[2023-06-16 08:38] VITALS: PULSE 97; RESP 16; O2SAT 96
[2023-06-16] MEDS: ipratropium-albuterol 3 mL Neb INHALATION (08:39)
[2023-06-16] MEDS: budesonide 0.5 mg/2 mL Neb INHALATION (08:39)
[2023-06-16 08:44] VITALS: PULSE 100
[2023-06-16 09:30] VITALS: BP 131/81
[2023-06-16] MEDS: metoprolol tartrate 50 mg Tablet 100 MG PO ×2 (09:30→18:01)
[2023-06-16] MEDS: ARIPiprazole 2 mg Tablet PO (09:30)
[2023-06-16] MEDS: amlodipine 10 mg Tablet PO (09:30)
[2023-06-16] MEDS: hydroCHLOROthiazide 25 mg Tablet PO (09:30)
[2023-06-16] MEDS: losartan 50 mg Tablet 100 MG PO (09:30)
[2023-06-16] MEDS: pantoprazole DR 40 mg Tablet PO (09:30)
[2023-06-16] MEDS: citalopram 20 mg Tablet 40 MG PO (09:30)
--- NOTE | 2023-06-16 09:36 | PC.NURSE ---
During morning assessment, patient upset because he wasn't able to sleep during the night because of his roommate. Patient states that he has high anxiety and depression. He reports starting to feel better, but not getting any sleep is making it worse . When asked if he was having suicidal thoughts, patient stated I still don't want to live . When asked if he would harm himself once discharge, patient said I don't know . Denies AVH.
[2023-06-16 14:00] VITALS: BP 114/70; PULSE 64; RESP 16; TEMP 36.6; O2SAT 94
--- NOTE | 2023-06-16 15:04 | P.NPUPN_ITS ---
Subjective NPU Subjective: 57-year-old white male admitted with worsening depression and suicidal ideation with a plan to hang himself. The patient had reported significant sleep continuity disruption issues. He had reported low energy and low motivation. He had reported fleeting suicidal thoughts. He reported not feeling rested nearly every morning. He had reported that he frequently required naps in the daytime and had requested that he was sensitive to noises at night. He had reported a lack of energy and difficulties with concentration. Mental Status Exam MSE Comments: Is a casually dressed obese white male who appeared his stated age. His hygiene was fair. There was no evidence of any abnormal involuntary motor movements tics or tremors appreciated other than significant psychomotor slowing. His sp eech was monotone in quality and decreased in volume and decreased in rate. His thought process was linear logical and goal-directed. His thought content showed evidence of occasional suicidal thoughts with no homicidal ideation. He did not appear to be responding to internal stimuli. There was no evidence of delusional thinking. He continued to report his mood is depressed. His affect was restricted in range and mood-congruent. He was alert and oriented to person place and time. His recent and remote memory appeared grossly intact. His insight is poor. His judgment is poor. His impulse control appeared limited at this time. Vitals/I&O/Wt Last Vital Signs Temp 98 F 06/16/23 14:00 Pulse 64 06/16/23 14:00 Resp 16 06/16/23 14:00 BP 114/70 06/16/23 14:00 Pulse Ox 94 06/16/23 14:00 O2 Del Method Room Air 06/16/23 14:00 Weight last 48 hrs Weight 115.938 kg Data NPU 06/14/23 00:05 06/14/23 00:05 A&P Assessment and plan (1) Major depressive disorder, recurrent episode: (2) Generalized anxiety disorder: (3) Suicidal ideation: Plan 57-year-old white male with a past history of major depressive episodes currently endorsing depressed mood and generalized anxiety disorder in the context of increased stressors at home. 1.?Encourage individual, group and milieu therapy. 2.?? Recommend sober living treatment at the highest level of care to which the patient is willing to commit. 3.? Continue q-15 minute checks for safety.? 4. Continue Celexa 40mg daily, increase abilify 5mg daily to target depression adjunctively. Encourage CPAP at night, consider low dose stimulant in daytime to help with depression. Involuntary Hold Information 96 Hour Hold: 96 Hour Involuntary Admission: No Attestations NPU Medical Necessity Statement*: Inpatient hospitalization is medically necessary and deemed to be the clinically appropriate intervention at this time. ? We will monitor/initiate medications and make changes as indicated.? His likely length of stay is 5-7 days. Coding Level of Care Code Acute Code for [facility] Fwd Diagnoses Major depressive disorder, recurrent episode F33.9 Generalized anxiety disorder F41.1 Suicidal ideation R45.851
[2023-06-16 20:03] VITALS: BP 125/73; PULSE 63; RESP 18; TEMP 36.8; O2SAT 92
[2023-06-16] MEDS: trazodone 50 mg Tablet PO (21:53)
[2023-06-17 06:00] VITALS: RESP 16
[2023-06-17 08:00] VITALS: PULSE 91; RESP 16; O2SAT 95
[2023-06-17] MEDS: citalopram 20 mg Tablet 40 MG PO (09:03)
[2023-06-17] MEDS: hydroCHLOROthiazide 25 mg Tablet PO (09:04)
[2023-06-17] MEDS: ARIPiprazole 10 mg Tablet 5 MG PO (09:04)
[2023-06-17] MEDS: pantoprazole DR 40 mg Tablet PO (09:04)
[2023-06-17] MEDS: metoprolol tartrate 50 mg Tablet 100 MG PO ×2 (09:05→17:45)
[2023-06-17] MEDS: amlodipine 10 mg Tablet PO (09:05)
[2023-06-17 09:06] VITALS: BP 122/76
[2023-06-17] MEDS: losartan 50 mg Tablet 100 MG PO (09:06)
[2023-06-17 13:03] VITALS: BP 122/85; PULSE 71; RESP 18; TEMP 37.7; O2SAT 92
--- NOTE | 2023-06-17 13:14 | PC.NURSE ---
called respirtory pt requesting breathing treatment. o2 at 96%. pt said he is experiencing nasal congestion with yellow green discharge upon blowing his nose.
[2023-06-17 13:35] VITALS: PULSE 78; RESP 16; O2SAT 97
--- NOTE | 2023-06-17 16:15 | P.NPUPN_ITS ---
Subjective NPU Subjective: 57-year-old white male admitted with worsening depression and suicidal ideation with a plan to hang himself. Patient endorsed depressed mood and having continued thoughts of suicide. The patient had been informed by his that she would no longer be taking him back and patient had reported feeling worse. Patient had been somewhat isolative on the milieu but was able to briefly attend groups. He had continued to complain of low energy and stated that he did not feel rested at night. He had requested something to help him with sleep but it was uncertain as to what that medicine could be given the fact that his primary sleep disturbance was associated with his significant obstructive sleep apnea. He had frequently required naps during the daytime. He had utilized his CPAP t hroughout the night. Mental Status Exam MSE Comments: Is a casually dressed obese white male who appeared his stated age. His hygiene was fair. There was no evidence of any abnormal involuntary motor movements tics or tremors appreciated other than significant psychomotor slowing. His speech was monotone in quality and decreased in volume and decreased in rate. His thought process was linear logical and goal-directed. His thought content showed evidence of occasional suicidal thoughts with no homicidal ideation. He did not appear to be responding to internal stimuli. There was no evidence of delusional thinking. His mood was described as depressed. His affect was restricted in range and mood-congruent. He was alert and oriented to person place and time. His recent and remote memory appeared grossly intact. His insight is poor. His judgment is poor. His impulse control appeared limited at this time. Vitals/I&O/Wt Last Vital Signs Temp 99.9 F H 06/17/23 13:03 Pulse 78 06/17/23 13:35 Resp 16 06/17/23 13:35 BP 122/85 06/17/23 13:03 Pulse Ox 97 06/17/23 13:35 O2 Del Method Room Air 06/17/23 13:35 Data NPU 06/14/23 00:05 06/14/23 00:05 A&P Assessment and plan (1) Major depressive disorder, recurrent episode: (2) Generalized anxiety disorder: (3) Suicidal ideation: Plan 57-year-old white male with a past history of major depressive episodes currently endorsing depressed mood and generalized anxiety disorder in the context of increased stressors at home. 1.?Encourage individual, group and milieu therapy. 2.?? Recommend sober living treatment at the highest level of care to which the patient is willing to commit. 3.? Continue q-15 minute checks for safety.? 4. Continue Celexa 40mg daily, continue abilify 5mg daily to target depression adjunctively. Encourage CPAP at night, started low dose stimulant 10mg bid ritalin. Involuntary Hold Information 96 Hour Hold: 96 Hour Involuntary Admission: No Attestations NPU Medical Necessity Statement*: Inpatient hospitalization is medically necessary and deemed to be the clinically appropriate intervention at this time. ? We will monitor/initiate medications and make changes as indicated.? His likely length of stay is 5-7 days. Coding Level of Care Code Acute Code for [facility] Fwd Diagnoses Major depressive disorder, recurrent episode F33.9 Generalized anxiety disorder F41.1 Suicidal ideation R45.853
[2023-06-17 19:57] VITALS: BP 103/61; PULSE 73; RESP 18; TEMP 36.9; O2SAT 94
[2023-06-17] MEDS: trazodone 50 mg Tablet PO (20:02)
[2023-06-18 06:00] VITALS: BP 118/72; PULSE 66; RESP 18; O2SAT 94
[2023-06-18] MEDS: pantoprazole DR 40 mg Tablet PO (09:00)
[2023-06-18] MEDS: metoprolol tartrate 50 mg Tablet 100 MG PO ×2 (09:00→17:56)
[2023-06-18] MEDS: citalopram 20 mg Tablet 40 MG PO (09:00)
[2023-06-18] MEDS: ARIPiprazole 10 mg Tablet 5 MG PO (09:00)
[2023-06-18 09:01] VITALS: BP 118/72
[2023-06-18] MEDS: amlodipine 10 mg Tablet PO (09:01)
[2023-06-18] MEDS: methylphenidate 10 mg Tablet PO ×3 (09:01→15:29)
[2023-06-18] MEDS: losartan 50 mg Tablet 100 MG PO (09:01)
[2023-06-18] MEDS: hydroCHLOROthiazide 25 mg Tablet PO (09:01)
[2023-06-18 14:18] VITALS: BP 120/85; PULSE 73; RESP 17; TEMP 36.9; O2SAT 94
--- NOTE | 2023-06-18 15:07 | P.NPUPN_ITS ---
Subjective NPU Subjective: 57-year-old white male admitted with worsening depression and suicidal ideation with a plan to hang himself. The patient continue to report having suicidal thoughts. He had isolated himself on the unit for much of the day. He reported feeling no different as he felt that the medications had not made any difference yet. He reported no side effects to the Abilify or the increase in Celexa. He had reported some difficulties with falling asleep but continued to keep the CPAP on at night for sleep. The patient reported that he had no place to go as he was no longer welcome in his previous home as he states that his marriage is over. Mental Status Exam MSE Comments: Is a casually dressed obese white male who appeared his stated age. His hygiene was fair. There was significant psychomotor slowing noted. His speech was monotone in quality and decreased in volume and decreased in rate. His thought process was linear logical and goal-directed. His thought content showed evidence of suicidal thoughts with plans to hang himself with no homicidal ideation. He did not appear to be responding to internal stimuli. There was no evidence of delusional thinking. His mood was reported as depressed. His affect was restricted in range and mood-congruent. He was alert and oriented to person place and time. His recent and remote memory appeared grossly intact. His insight is poor. His judgment is poor. His impulse control appeared limited at this time. Vitals/I&O/Wt Last Vital Signs Temp 98.5 F 06/18/23 14:18 Pulse 73 06/18/23 14:18 Resp 17 06/18/23 14:18 BP 120/85 06/18/23 14:18 Pulse Ox 94 06/18/23 14:18 O2 Del Method Room Air 06/18/23 14:18 Data NPU 06/14/23 00:05 06/14/23 00:05 A&P Assessment and plan (1) Major depressive disorder, recurrent episode: (2) Generalized anxiety disorder: (3) Suicidal ideation: Plan 57-year-old white male with a past history of major depressive episodes c urrently endorsing depressed mood and generalized anxiety disorder in the context of increased stressors at home. 1.?Encourage individual, group and milieu therapy. 2.?? Recommend sober living treatment at the highest level of care to which the patient is willing to commit. 3.? Continue q-15 minute checks for safety.? 4. Continue Celexa 40mg daily, increase Abilify to 10 mg daily to target depression adjunctively. Encourage CPAP at night, increase Ritalin to 10mg tid. Involuntary Hold Information 96 Hour Hold: 96 Hour Involuntary Admission: No Attestations NPU Medical Necessity Statement*: Inpatient hospitalization is medically necessary and deemed to be the clinically appropriate intervention at this time. ? We will monitor/initiate medications and make changes as indicated.? His likely length of stay is 5-7 days. Coding Level of Care Code Acute Code for [facility] Fwd Diagnoses Major depressive disorder, recurrent episode F33.9 Generalized anxiety disorder F41.1 Suicidal ideation R45.856
[2023-06-18 20:14] VITALS: BP 113/75; PULSE 80; RESP 18; TEMP 36.8; O2SAT 95
[2023-06-18] MEDS: trazodone 50 mg Tablet PO ×2 (20:26→21:29)
[2023-06-19 06:00] VITALS: BP 113/71; PULSE 74; RESP 18; O2SAT 93
[2023-06-19] MEDS: methylphenidate 10 mg Tablet PO ×3 (08:38→15:05)
[2023-06-19] MEDS: amlodipine 10 mg Tablet PO (08:38)
[2023-06-19] MEDS: ARIPiprazole 10 mg Tablet PO (08:38)
[2023-06-19] MEDS: citalopram 20 mg Tablet 40 MG PO (08:38)
[2023-06-19] MEDS: metoprolol tartrate 50 mg Tablet 100 MG PO ×2 (08:38→18:04)
[2023-06-19 08:39] VITALS: BP 113/71
[2023-06-19] MEDS: losartan 50 mg Tablet 100 MG PO (08:39)
[2023-06-19] MEDS: pantoprazole DR 40 mg Tablet PO (08:39)
[2023-06-19] MEDS: hydroCHLOROthiazide 25 mg Tablet PO (08:39)
[2023-06-19 10:17] VITALS: PULSE 83; RESP 16; O2SAT 96
[2023-06-19] MEDS: ipratropium-albuterol 3 mL Neb INHALATION (10:17)
[2023-06-19 14:00] VITALS: BP 141/84; PULSE 80; RESP 16; TEMP 36.6; O2SAT 95
--- NOTE | 2023-06-19 14:47 | P.NPUPN_ITS ---
Subjective NPU Subjective: 57-year-old white male admitted with worsening depression and suicidal ideation with a plan to hang himself. Patient reports that he is reeling from the fact that he and his will be getting a divorce. He reported that he was not welcome back in the home. He had reported that his mind was preoccupied by worries all night and he was unable to sleep. He reports feeling extremely tir ed. He was able to attend groups. He had continued to endorse having suicidal thoughts and reported that his depression remained the same. He had continue to complain of excessive daytime sleepiness. He reported low energy and low motivation. The patient had reported inability to sleep despite taking 2 tablets of trazodone last night at a total of 100 mg. Mental Status Exam MSE Comments: Is a casually dressed obese white male who appeared older than his stated age. His hygiene was fair. There was significant psychomotor slowing appreciated. His speech was monotone in quality and decreased in volume and decreased in rate. His thought process was linear logical and goal-directed. His thought content showed evidence of suicidal thoughts with plans to hang himself with no homicidal ideation. He did not appear to be responding to internal stimuli. There was no evidence of delusional thinking. His mood was reported as depressed. His affect was restricted in range and mood-congruent. He was alert and oriented to person place and time. His recent and remote memory appeared grossly intact. His insight is poor. His judgment is poor. His impulse control appeared limited at this time. Vitals/I&O/Wt Last Vital Signs Temp 98.3 F 06/18/23 20:14 Pulse 83 06/19/23 10:17 Resp 16 06/19/23 10:17 BP 113/71 06/19/23 08:39 Pulse Ox 96 06/19/23 10:17 O2 Del Method Room Air 06/19/23 10:17 Data NPU 06/14/23 00:05 06/14/23 00:05 A&P Assessment and plan (1) Major depressive disorder, recurrent episode: (2) Generalized anxiety disorder: (3) Suicidal ideation: Plan 57-year-old white male with a past history of major depressive episodes currently endorsing depressed mood and generalized anxiety disorder in the context of increased stressors at home. 1.?Encourage individual, group and milieu therapy. 2.?? Recommend sober living treatment at the highest level of care to which the patient is willing to commit. 3.? Continue q-15 minute checks for safety.? 4. Continue Celexa 40mg daily, continue Abilify at 10 mg daily to target depression adjunctively. Encourage CPAP at night, continue Ritalin to 10mg tid. Trial of doxepin 25 mg at night for sleep. Involuntary Hold Information 96 Hour Hold: 96 Hour Involuntary Admission: No Attestations NPU Medical Necessity Statement*: Inpatient hospitalization is medically necessary and deemed to be the clinically appropriate intervention at this time. ? We will monitor/initiate medications and make changes as indicated.? His likely length of stay is 5-7 days. Coding Level of Care Code Acute Code for [facility] Fwd Diagnoses Major depressive disorder, recurrent episode F33.9 Generalized anxiety disorder F41.1 Suicidal ideation R45.857
[2023-06-19] MEDS: doxepin 25 mg Capsule PO (20:14)
[2023-06-19 20:32] VITALS: BP 126/75; PULSE 63; RESP 16; O2SAT 95
[2023-06-19] MEDS: trazodone 50 mg Tablet PO (21:04)
[2023-06-20 06:00] VITALS: BP 115/73; PULSE 71; RESP 20; O2SAT 95
[2023-06-20 08:48] VITALS: PULSE 72; RESP 17; O2SAT 97
[2023-06-20] MEDS: pantoprazole DR 40 mg Tablet PO (09:16)
[2023-06-20] MEDS: hydroCHLOROthiazide 25 mg Tablet PO (09:16)
[2023-06-20] MEDS: methylphenidate 10 mg Tablet PO ×3 (09:16→14:59)
[2023-06-20] MEDS: citalopram 20 mg Tablet 40 MG PO (09:16)
[2023-06-20 09:17] VITALS: BP 116/72
[2023-06-20] MEDS: metoprolol tartrate 50 mg Tablet 100 MG PO ×2 (09:17→20:05)
[2023-06-20] MEDS: losartan 50 mg Tablet 100 MG PO (09:17)
[2023-06-20] MEDS: amlodipine 10 mg Tablet PO (09:17)
[2023-06-20] MEDS: ARIPiprazole 10 mg Tablet PO (09:36)
[2023-06-20] MEDS: fixodent 39 gm Tube 1 APPLIC DENTAL (11:56)
--- NOTE | 2023-06-20 13:34 | PC.NURSE ---
Performed Storey-Suicide Severity Rating Scale. Patient told this nurse that when I came into his room, he was actively thinking of what he would say to his family in a suicide note.
[2023-06-20 14:00] VITALS: BP 112/75; PULSE 83; RESP 20; TEMP 37.1; O2SAT 95
--- NOTE | 2023-06-20 17:50 | W.PM.NPUPNS ---
Subjective NPU Subjective: 57-year-old white male admitted with worsening depression and suicidal ideation with a plan to hang himself. Patient had complained of ear pain having reported a history of ear infections. The patient had reported continued feelings of hopelessness and sadness. He had continue to report anxiety and stated that he had difficulties with falling asleep. He reported having continued thoughts of wanting to hang himself. He had reported that he was trying to find a way to work things out with his . He had been able to attend groups but remains somewhat isolative in his room with some increase in sociability noted. He had continued report excessive daytime sleepiness although he did not sleep in the afternoon. Mental Status Exam MSE Comments: Is a casually dressed obese white male who appeared older than his stated age. His hygiene was fair. There was moderate psychomotor retardation. His speech was monotone in quality and decreased in volume and normal in rate. His thought process was linear logical and goal-directed. His thought content showed evidence of suicidal thoughts with plans to hang himself with no homicidal ideation. He did not appear to be responding to internal stimuli. There was no evidence of delusional thinking. His mood was reported as depressed. His affect remained restricted. He was alert and oriented to person place and time. His recent and remote memory appeared grossly intact. His insight is poor. His judgment is poor. His impulse control appeared limited at this time. Vitals/I&O/Wt Last Vital Signs Temp 98.7 F 06/20/23 14:00 Pulse 83 06/20/23 14:00 Resp 20 H 06/20/23 14:00 BP 112/75 06/20/23 14:00 Pulse Ox 95 06/20/23 14:00 O2 Del Method CPAP 06/20/23 08:48 Data NPU 06/14/23 00:05 06/14/23 00:05 A&P Assessment and plan (1) Major depressive disorder, recurrent episode: (2) Generalized anxiety disorder: (3) Suicidal ideation: Plan 57-year-old white male with a past history of major depressive episodes currently endorsing depressed mood and generalized anxiety disorder in the context of increased stressors at home. 1.?Encourage individual, group and milieu therapy. 2.?? Recommend sober living treatment at the highest level of care to which the patient is willing to commit. 3.? Continue q-15 minute checks for safety.? 4. Continue Celexa 40mg daily, continue Abilify at 10 mg daily to target depression adjunctively. Encourage CPAP at night, continue Ritalin to 10mg tid. Continue doxepin 25 mg at night for sleep. Involuntary Hold Information 96 Hour Hold: 96 Hour Involuntary Admission: No Attestations NPU Medical Necessity Statement*: Inpatient hospitalization is medically necessary and deemed to be the clinically appropriate intervention at this time. ? We will monitor/initiate medications and make changes as indicated.? His likely length of stay is 3-5 days. Coding Level of Care Code Acute Code for [facility] Fwd Diagnoses Major depressive disorder, recurrent episode F33.9 Generalized anxiety disorder F41.1 Suicidal ideation R45.853
[2023-06-20 20:00] VITALS: O2SAT 96
[2023-06-20] MEDS: amoxicillin-clav 875-125 mg Tablet 1 TAB PO (20:05)
[2023-06-20] MEDS: doxepin 25 mg Capsule PO (20:05)
[2023-06-20 20:23] VITALS: BP 128/82; PULSE 95; RESP 18; TEMP 36.9; O2SAT 95
[2023-06-21 06:00] VITALS: BP 125/74; PULSE 67; RESP 20; O2SAT 94
[2023-06-21 08:35] VITALS: BP 132/85
[2023-06-21] MEDS: pantoprazole DR 40 mg Tablet PO (08:35)
[2023-06-21] MEDS: losartan 50 mg Tablet 100 MG PO (08:35)
[2023-06-21] MEDS: ARIPiprazole 10 mg Tablet PO (08:35)
[2023-06-21] MEDS: hydroCHLOROthiazide 25 mg Tablet PO (08:35)
[2023-06-21] MEDS: amlodipine 10 mg Tablet PO (08:35)
[2023-06-21] MEDS: amoxicillin-clav 875-125 mg Tablet 1 TAB PO ×2 (08:35→18:34)
[2023-06-21] MEDS: metoprolol tartrate 50 mg Tablet 100 MG PO ×2 (08:35→18:34)
[2023-06-21] MEDS: citalopram 20 mg Tablet 40 MG PO (08:35)
[2023-06-21] MEDS: methylphenidate 10 mg Tablet PO ×3 (08:37→15:20)
[2023-06-21] MEDS: ibuprofen 600 mg Tablet PO ×2 (10:49→19:21)
[2023-06-21 13:16] VITALS: BP 106/70; PULSE 77; RESP 14; TEMP 36.8; O2SAT 94
--- NOTE | 2023-06-21 16:45 | W.PM.NPUPNS ---
Subjective NPU Subjective: 57-year-old white male admitted with worsening depression and suicidal ideation with a plan to hang himself. Patient continued endorse suicidal ideation. He had appeared more social on the unit though. He had reported some continued feelings of hopelessness. Patient had reported feeling excessively tired. He reported low energy. The patient reported some difficulties with concentration. He continued to utilize CPAP during the nighttime. He had continued reports sleep continuity disruption and feeling not rested when awakening. Mental Status Exam MSE Comments: Is a casually dressed obese white male who appeared older than his stated age. His hygiene was fair. There was Significantpsychomotor retardation. His speech was monotone in quality and decreased in volume and normal in rate. His thought process was linear logical and goal-directed. His thought content showed evidence of suicidal thoughts with plans to hang himself with no homicidal ideation. He did not appear to be responding to internal stimuli. There was no evidence of delusional thinking. His mood was bad His affect remained restricted. He was alert and oriented to person place and time. His recent and remote memory appeared grossly intact. His insight is poor. His judgment is poor. His impulse control appeared limited at this time. Vitals/I&O/Wt Last Vital Signs Temp 98.2 F 06/21/23 13:16 Pulse 77 06/21/23 13:16 Resp 14 06/21/23 13:16 BP 106/70 06/21/23 13:16 Pulse Ox 94 06/21/23 13:16 O2 Del Method Room Air 06/21/23 13:16 Data NPU 06/14/23 00:05 06/14/23 00:05 A&P Assessment and plan (1) Major depressive disorder, recurrent episode: (2) Generalized anxiety disorder: (3) Suicidal ideation: Plan 57-year-old white male with a past history of major depressive episodes currently endorsing depressed mood and generalized anxiety disorder in the context of increased stressors at home. 1.?Encourage individual, group and milieu therapy. 2.?? Recommend sober living treatment at the highest level of care to which the patient is willing to commit. 3.? Continue q-15 minute checks for safety.? 4. Continue Celexa 40mg daily, continue Abilify at 10 mg daily to target depression adjunctively. Encourage CPAP at night, continue Ritalin to 10mg tid. increase doxepin 50 mg at night for sleep. Involuntary Hold Information 96 Hour Hold: 96 Hour Involuntary Admission: No Attestations NPU Medical Necessity Statement*: Inpatient hospitalization is medically necessary and deemed to be the clinically appropriate intervention at this time. ? We will monitor/initiate medications and make changes as indicated.? His likely length of stay is 3-5 days. Coding Level of Care Code Acute Code for g Fwd Diagnoses Major depressive disorder, recurrent episode F33.9 Generalized anxiety disorder F41.1 Suicidal ideation R45.851
[2023-06-21] MEDS: doxepin 25 mg Capsule 50 MG PO (19:21)
[2023-06-21 19:39] VITALS: BP 120/79; PULSE 84; RESP 16; TEMP 36.4; O2SAT 95; BMI 35.0
[2023-06-21] MEDS: acetaminophen 325 mg Tablet 650 MG PO (20:42)
[2023-06-22 06:00] VITALS: BP 128/21; PULSE 69; RESP 18; TEMP 37; O2SAT 97
[2023-06-22] MEDS: ibuprofen 600 mg Tablet PO (07:39)
[2023-06-22 08:55] VITALS: BP 125/81
[2023-06-22] MEDS: citalopram 20 mg Tablet 40 MG PO (08:55)
[2023-06-22] MEDS: ARIPiprazole 10 mg Tablet PO (08:55)
[2023-06-22] MEDS: methylphenidate 10 mg Tablet PO ×3 (08:55→14:32)
[2023-06-22] MEDS: losartan 50 mg Tablet 100 MG PO (08:55)
[2023-06-22] MEDS: metoprolol tartrate 50 mg Tablet 100 MG PO ×2 (08:57→17:44)
[2023-06-22] MEDS: amoxicillin-clav 875-125 mg Tablet 1 TAB PO ×2 (08:58→17:44)
[2023-06-22] MEDS: pantoprazole DR 40 mg Tablet PO (08:58)
[2023-06-22] MEDS: hydroCHLOROthiazide 25 mg Tablet PO (08:58)
[2023-06-22] MEDS: amlodipine 10 mg Tablet PO (08:58)
[2023-06-22] MEDS: acetaminophen 325 mg Tablet 650 MG PO (10:58)
[2023-06-22 14:00] VITALS: BP 113/75; PULSE 69; RESP 18; O2SAT 93
--- NOTE | 2023-06-22 15:30 | W.PM.NPUPNS ---
Subjective NPU Subjective: 57-year-old white male admitted with worsening depression and suicidal ideation with a plan to hang himself. He continue endorse some suicidal thoughts. He reported no side effects from his medication. He had reported having neck pain and neck spasms. He had continued to endorse some feelings of hopelessness. He had reported that he had attempted to contact his about returning home. He reported low energy but reported some improvement in sleep. Patient reported that his ability to see a future was limited . Mental Status Exam MSE Comments: Is a casually dressed obese white male who appeared older than his stated age. His hygiene was fair. There was continued evidence of psychomotor retardation. His speech was monotone in quality and decreased in volume and normal in rate. His thought process was linear logical and goal-directed. His thought content showed evidence of suicidal thoughts with no homicidal ideation. He did not appear to be responding to internal stimuli. There was no evidence of delusional thinking. His mood was not good His affect remained restricted. He was alert and oriented to person place and time. His recent and remote memory appeared grossly intact. His insight is poor. His judgment is poor. His impulse control appeared limited at this time. Vitals/I&O/Wt Last Vital Signs Temp 98.6 F 06/22/23 06:00 Pulse 69 06/22/23 14:00 Resp 18 06/22/23 14:00 BP 113/75 06/22/23 14:00 Pulse Ox 93 06/22/23 14:00 O2 Del Method Room Air 06/22/23 14:00 Weight last 48 hrs Weight 107.671 kg Data NPU 06/14/23 00:05 06/14/23 00:05 A&P Assessment and plan (1) Major depressive disorder, recurrent episode: (2) Generalized anxiety disorder: (3) Suicidal ideation: Plan 57-year-old white male with a past history of major depressive episodes currently endorsing depressed mood and generalized anxiety disorder in the context of increased stressors at home. 1.?Encourage individual, group and milieu therapy. 2.?? Recommend sober living treatment at the highest level of care to which the patient is willing to commit. 3.? Continue q-15 minute checks for safety.? 4. Continue Celexa 40mg daily, continue Abilify at 10 mg daily to target depression adjunctively. Encourage CPAP at night, continue Ritalin to 10mg tid. continue doxepin 50 mg at night for sleep. Cyclobenzaprine for muscle spasms. Involuntary Hold Information 96 Hour Hold: 96 Hour Involuntary Admission: No Attestations NPU Medical Necessity Statement*: Inpatient hospitalization is medically necessary and deemed to be the clinically appropriate intervention at this time. ? We will monitor/initiate medications and make changes as indicated.? His likely length of stay is 3-5 days. Coding Level of Care Code Acute Code for Chg Fwd Diagnoses Major depressive disorder, recurrent episode F33.9 Generalized anxiety disorder F41.1 Suicidal ideation R45.851
[2023-06-22] MEDS: cyclobenzaprine 10 mg Tablet PO (18:27)
[2023-06-22 20:05] VITALS: BP 135/92; PULSE 79; RESP 18; TEMP 36.7; O2SAT 95
[2023-06-22] MEDS: doxepin 25 mg Capsule 50 MG PO (20:50)
[2023-06-22] MEDS: trazodone 50 mg Tablet PO (22:09)
[2023-06-23 06:00] VITALS: BP 152/95; PULSE 77; RESP 18; TEMP 36.6; O2SAT 93
[2023-06-23] MEDS: fixodent 39 gm Tube 1 APPLIC DENTAL (07:54)
[2023-06-23 08:57] VITALS: BP 145/89
[2023-06-23] MEDS: citalopram 20 mg Tablet 40 MG PO (08:57)
[2023-06-23] MEDS: amlodipine 10 mg Tablet PO (08:57)
[2023-06-23] MEDS: methylphenidate 10 mg Tablet PO ×3 (08:57→15:46)
[2023-06-23] MEDS: losartan 50 mg Tablet 100 MG PO (08:57)
[2023-06-23] MEDS: pantoprazole DR 40 mg Tablet PO (08:57)
[2023-06-23] MEDS: ARIPiprazole 10 mg Tablet PO (08:57)
[2023-06-23] MEDS: hydroCHLOROthiazide 25 mg Tablet PO (08:57)
[2023-06-23] MEDS: amoxicillin-clav 875-125 mg Tablet 1 TAB PO ×2 (08:57→17:21)
[2023-06-23] MEDS: metoprolol tartrate 50 mg Tablet 100 MG PO ×2 (09:00→17:21)
--- NOTE | 2023-06-23 10:26 | PC.NURSE ---
During morning assessment, patient stated that he has anxiety at 9/10, depression 9/10. Patietn stated that he feels like there is no hope. Patient endorses SI off and on , but denies it at time of morning assessment.
[2023-06-23 13:19] VITALS: BP 120/76; PULSE 66; RESP 16; TEMP 36.9; O2SAT 95
--- NOTE | 2023-06-23 14:41 | P.NPUPN_ITS ---
Subjective NPU Subjective: 57-year-old white male admitted with worsening depression and suicidal ideation with a plan to hang himself. The patient had reported feeling depressed and hopeless but did not report having thoughts of hurting himself today. He had continue to report feeling tired. He had reported low energy. He had been able to attend groups and stated that he would like to consider therapy when disc harged from here. The patient reported no changes in appetite. He had reported that he was trying to work things out with his but stated being upset that his had not picked up the phone. No side effects noted from his medication. Mental Status Exam MSE Comments: Is a casually dressed obese white male who appeared older than his stated age. His hygiene was fair. There was continued evidence of mild psychomotor retardation. His speech was monotone in quality with normal volume and rate. His thought process was linear logical and goal-directed. The patient denies suicidal or homicidal ideation today. He did not appear to be responding to internal stimuli. There was no evidence of delusional thinking. His mood was okay His affect remained restricted. He was alert and oriented to person place and time. His recent and remote memory appeared grossly intact. His insight is improving. His judgment is poor. His impulse control appeared limited at this time. Vitals/I&O/Wt Last Vital Signs Temp 98.4 F 06/23/23 13:19 Pulse 66 06/23/23 13:19 Resp 16 06/23/23 13:19 BP 120/76 06/23/23 13:19 Pulse Ox 95 06/23/23 13:19 O2 Del Method Room Air 06/23/23 13:19 Weight last 48 hrs Weight 107.671 kg Data NPU 06/14/23 00:05 06/14/23 00:05 A&P Assessment and plan (1) Major depressive disorder, recurrent episode: (2) Generalized anxiety disorder: (3) Suicidal ideation: Plan 57-year-old white male with a past history of major depressive episodes currently endorsing depressed mood and generalized anxiety disorder in the context of increased stressors at home. 1.?Encourage individual, group and milieu therapy. 2.?? Recommend sober living treatment at the highest level of care to which the patient is willing to commit. 3.? Continue q-15 minute checks for safety.? 4. Continue Celexa 40mg daily, continue Abilify at 10 mg daily to target depression adjunctively. Encourage CPAP at night, continue Ritalin to 10mg tid. continue doxepin 50 mg at night for sleep. Cyclobenzaprine for muscle spasms. Involuntary Hold Information 96 Hour Hold: 96 Hour Involuntary Admission: No Attestations NPU Medical Necessity Statement*: Inpatient hospitalization is medically necessary and deemed to be the clinically appropriate intervention at this time. ? We will monitor/initiate medications and make changes as indicated.? His likely length of stay is 1-2 days. Coding Level of Care Code Acute Code for Chg Fwd Diagnoses Major depressive disorder, recurrent episode F33.9 Generalized anxiety disorder F41.1 Suicidal ideation R45.854
[2023-06-23] MEDS: ipratropium-albuterol 3 mL Neb INHALATION (16:51)
[2023-06-23 16:53] VITALS: PULSE 66; RESP 16; O2SAT 94
[2023-06-23 16:58] VITALS: PULSE 65
[2023-06-23] MEDS: doxepin 25 mg Capsule 50 MG PO (20:01)
[2023-06-23] MEDS: trazodone 50 mg Tablet PO ×2 (20:01→20:58)
[2023-06-23 20:21] VITALS: BP 147/84; PULSE 64; RESP 18; TEMP 36.6; O2SAT 99
[2023-06-23] MEDS: cyclobenzaprine 10 mg Tablet PO (20:55)
[2023-06-24 06:00] VITALS: BP 117/64; PULSE 65; RESP 16; TEMP 36.6; O2SAT 97
[2023-06-24 08:26] VITALS: BP 117/79
[2023-06-24] MEDS: losartan 50 mg Tablet 100 MG PO (08:26)
[2023-06-24] MEDS: methylphenidate 10 mg Tablet PO ×3 (08:28→14:57)
[2023-06-24] MEDS: hydroCHLOROthiazide 25 mg Tablet PO (08:28)
[2023-06-24] MEDS: metoprolol tartrate 50 mg Tablet 100 MG PO (08:29)
[2023-06-24] MEDS: ARIPiprazole 10 mg Tablet PO (08:29)
[2023-06-24] MEDS: citalopram 20 mg Tablet 40 MG PO (08:29)
[2023-06-24] MEDS: amoxicillin-clav 875-125 mg Tablet 1 TAB PO (08:29)
[2023-06-24] MEDS: amlodipine 10 mg Tablet PO (08:29)
[2023-06-24] MEDS: pantoprazole DR 40 mg Tablet PO (08:29)
[2023-06-24] MEDS: hyDROXYzine 25 mg Capsule 50 MG PO (12:12)
--- NOTE | 2023-06-24 12:12 | PC.NURSE ---
PATIENT REPORTING SEVERE ANXIETY THAT BEGAN DURING GROUP WHEN SELF-WORTH WAS BEING DISCUSSED. PATIENT STATED THAT THE GROUP HIT HOME . GIVEN VISTARIL 50MG PO.
--- NOTE | 2023-06-24 13:38 | W.PM.NPUDCS ---
Diagnoses at Discharge Discharge Diagnosis (1) Major depressive disorder, recurrent episode: Status: Acute (2) Generalized anxiety disorder: Status: Acute (3) Suicidal ideation: Status: Acute Reason for Visit Reason for Visit: SI Brief History: History of Present Illness Madi Lowe is a 57 year old male with a history of multiple inpatient hospitalizations last admitted psychiatrically approximately 10 years ago who presented to the emergency department stating that he would hang self with ratchet straps on his truck.? The patient reports that he has had more frequent suicidal thoughts for the past several months since he had lost his job at a [employer].? He reports that he had an argument with his after she had learned that he had been having an emotional affair with another woman at work.? He also reports significant financial stressors as he has been unable to maintain a job and pay his bills on his new home.? She had asked the patient to leave the home and the patient reports that he has been feeling more hopeless over the past few days.? He reports low energy, anhedonia, increased anxiety and chronic sleep continuity disruption.? He reports that he frequently feels sad about the future and states that he is been battling depression for several months.? He had reported a past history of major depressive episodes that had remitted but states that his depression has been worse.? He had reported having no recent psychotherapy.? He reports having chronic problems with anxiety and states that he feels that his worry is out of control.? The patient reports feelings of loneliness and isolation.? He reports having difficulties with managing his stress.? The patient denies any history of psychosis.? He denies any history of substance abuse.? He reports no history of khadar.? He reports having frequent problems with muscle tension and reports having difficulties with concentration.? He denies any history of panic attacks. Inpatient psychiatric history: He reports having several inpatient hospitalizations with his most recent hospitalization having occurred 10 years ago.? He has a significant history of overdose on pills in the past with suicidal intent. Outpatient psychiatric history: None, he has been prescribed Celexa 20 mg daily by his primary care physician. Drug and alcohol history: None reported Allergies: No known drug allergies Medical history: Asthma, hypertension, gastroesophageal reflux disease, probably myalgia rheumatica, obstructive sleep apnea Surgical history: History of hand surgery, history of knee surgery, history of appendectomy, history of nasal surgery, history of umbilical hernia repair Current medications: Celexa 20 mg daily, albuterol, hydrochlorothiazide, ipratropium, losartan, metoprolol, omeprazole, prednisone Legal history: None history: None Family psychiatric history: None Social history: Patient was born in [place] and raised by his biological parents.? He had graduated from high school.? He has 2 siblings.? He had reported no prior history of trauma.? He has reported that he has been 2 times and his current marriage has been 12 years.? He has 2 adult grown children from a previous marriage.? He denied any history of sexual physical or emotional abuse.? 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 He had been living with his in [facility] and reports significant financial stressors.? He had reported no history of learning disorders or any history of developmental delays. Hospital Course Hospital Course During the hospitalization, the patient had routine laboratory studies which were within normal limits except for a few outliers.? Additionally, there was a general medical evaluation which was also within normal limits and revealed no new acute processes.? At the time of discharge, lethality was denied and psychosis was resolving.? Mood and anxiety were well managed.? The patient endorsed a plan to avoid all drugs of abuse and follow up with the aftercare recommendations of the treatment team.? The patient was evaluated and deemed to be absent credible lethality and had achieved the maximum benefit from an inpatient hospitalization, and so was discharged.? The patient's Celexa was titrated up to 40 mg with initially no improvement noted. Abilify was added and titrated up to 10 mg adjunctively to treat the patient's depression. He continued to struggle with fatigue and low energy and it appeared that he needed an adjustment with his CPAP machine upon discharge. A low-dose of methylphenidate was added to target a lack of energy and this did appear to show some improvement. Doxepin was added at night to target insomnia. He had expressed desire to follow-up with psychotherapy and medication management upon leaving the hospital. Involuntary Hold Information 96 Hour Hold: 96 Hour Involuntary Admission: No Mental Status Exam MSE Comments: Is a casually dressed obese white male who appeared older than his stated age. His hygiene was fair. There was mild psychomotor retardation noted. His speech was productive and normal in rate and prosody. His thought process was linear, logical and goal-directed. The patient denies suicidal or homicidal ideation on discharge. He did not appear to be responding to internal stimuli. There was no evidence of delusional thinking. His mood was better. His affect was brighter on discharge though still somewhat tempered. He was alert and oriented to person place and time. His recent and remote memory appeared grossly intact. His insight is improving. His judgment is better. His impulse control appeared improved on discharge. Discharge Data Studies Completed and Pending: Laboratory Results WBC 6.70 10^3/uL (3.2 9-11.43) 06/14/23 00:05 RBC 4.90 10^6/uL (3.8 5-5.65) 06/14/23 00:05 Hgb 14.50 g/dL (11.27 -16.99) 06/14/23 00:05 Hct 44.2 % (37-53) 06/14/23 00:05 MCV 90.2 fl (82-101) 06/14/23 00:05 MCH 29.6 pg (27-33) 06/14/23 00:05 MCHC 32.8 g/dL (30-55) 06/14/23 00:05 RDW 14.5 % (12.1-15.1 ) 06/14/23 00:05 Plt Count 284 10^3/cmm (157 -399) 06/14/23 00:05 MPV 9.5 fL (7.4-10.4) 06/14/23 00:05 Neut % (Auto) 57.1 % 06/14/23 00:05 Lymph % (Auto) 27.3 % 06/14/23 00:05 [place] % (Auto) 12.4 % 06/14/23 00:05 Eos % (Auto) 2.5 % 06/14/23 00:05 Baso % (Auto) 0.4 % 06/14/23 00:05 Neut # (Auto) 3.82 10^3/uL (1.8 -7.7) 06/14/23 00:05 Lymph # (Auto) 1.8 10^3/uL (0.8- 4.8) 06/14/23 00:05 [place] # (Auto) 0.8 10^3/uL (0.2- 0.9) 06/14/23 00:05 Eos # (Auto) 0.2 10^3/uL (0.0- 0.8) 06/14/23 00:05 Baso # (Auto) 0.0 10^3/uL (0.0- 0.1) 06/14/23 00:05 Nucleated RBC % (a uto) 0 % 06/14/23 00:05 Nucleated RBCs # 0.0 /100WBC 06/14/23 00:05 Sodium 137 mmol/L (136-1 45) 06/14/23 00:05 Potassium 4.4 mmol/L (3.5-5 .1) 06/14/23 00:05 Chloride 99 mmol/L (98-107 ) 06/14/23 00:05 Carbon Dioxide 29 mmol/L (22-29) 06/14/23 00:05 Anion Gap 13.4 (5-19) 06/14/23 00:05 BUN 12 mg/dL (6-20) 06/14/23 00:05 Creatinine 1.2 mg/dL (0.7-1. 2) 06/14/23 00:05 GFR Calculation 62.9 mL/min (90-1 30) L 06/14/23 00:05 Glucose 109 mg/dL (65-115 ) 06/14/23 00:05 Calculated Osmolal ity 284 mOsm/kg (285- 295) L 06/14/23 00:05 Calcium 10.6 mg/dL (8.5-1 0.5) H 06/14/23 00:05 Total Bilirubin 0.4 mg/dL (0.15-1 .2) 06/14/23 00:05 AST 40 U/L (0-40) 06/14/23 00:05 ALT 47 U/L (0-41) H 06/14/23 00:05 Alkaline Phosphata se 46 U/L (40-130) 06/14/23 00:05 Total Protein 8.0 g/dL (6.6-8.7 ) 06/14/23 00:05 Albumin 4.8 g/dL (3.5-5.2 ) 06/14/23 00:05 Globulin 3.2 g/dL (1.3-4.6 ) 06/14/23 00:05 TSH 2.20 uIU/mL (0.27 -4.20) 06/14/23 00:05 Urine Color Yellow (Yellow) 06/14/23 01:39 Urine Appearance Clear (CLEAR) 06/14/23 01:39 Urine pH 6 (5-7) 06/14/23 01:39 Ur Specific Gravit y 1.020 (1.005-1.0 30) 06/14/23 01:39 Urine Protein Neg (Negative) 06/14/23 01:39 Urine Glucose (UA) Norm (Normal) 06/14/23 01:39 Urine Ketones Negative (Negati ve) 06/14/23 01:39 Urine Blood Neg (Negative) 06/14/23 01:39 Urine Nitrate Negative (Negati ve) 06/14/23 01:39 Urine Bilirubin Neg (Negative) 06/14/23 01:39 Urine Urobilinogen Neg mg/dL (Negati ve) 06/14/23 01:39 Ur Leukocyte Alexandra ase Negative (Negati ve) 06/14/23 01:39 Salicylates 0.6 mg/dL (3-10) L 06/14/23 00:05 Urine Opiates Scre en Negative ng/mL (N egative) 06/14/23 01:39 Acetaminophen < 5.0 ug/mL (10-3 0) L 06/14/23 00:05 Ur Barbiturates Sc reen Negative ng/mL (N egative) 06/14/23 01:39 Ur Phencyclidine S crn Negative ng/mL (N egative) 06/14/23 01:39 Ur Amphetamines Sc reen Negative ng/mL (N egative) 06/14/23 01:39 U Benzodiazepines Scrn Negative ng/mL (N egative) 06/14/23 01:39 Urine Cocaine Scre en Negative ng/mL (N egative) 06/14/23 01:39 U Marijuana (THC) Screen Negative ng/mL (N egative) 06/14/23 01:39 Ethyl Alcohol < 10 mg/dL (0-10) 06/14/23 00:05 Vitals: Last Vital Signs Temp 97.8 F 06/24/23 06:00 Pulse 65 06/24/23 06:00 Resp 16 06/24/23 06:00 BP 117/79 06/24/23 08:26 Pulse Ox 97 06/24/23 06:00 O2 Del Method Room Air 06/24/23 08:00 Discharge Plan Discharge Patient Disposition: Home Condition: Stable Prescriptions: New doxepin 25 mg Capsule 50 mg PO BEDTIME 30 Days Qty: 60 1RF methylphenidate HCl 10 mg Tablet 10 mg PO 0800,1200,1500 Qty: 90 0RF amoxicillin-pot clavulanate 875-125 mg Tablet 1 tab PO BID 5 Days Qty: 10 0RF aripiprazole 10 mg Tablet 10 mg PO DAILY 30 Days Qty: 30 1RF amlodipine 10 mg Tablet 10 mg PO DAILY 30 Days Qty: 30 1RF citalopram 20 mg Tablet 40 mg PO DAILY 30 Days Qty: 60 1RF Continued fluticasone propionate [Flonase Allergy Relief] 50 mcg/actuation spray,suspension 1 spray intranasal BID PRN (Reason: nasal congestion) Qty: 16 0RF Rx Instructions: administer into each nostril (DME) Nebulizer machine with mask and tubing See Rx Instructions .Route .MEDSUPPLY Qty: 1 0RF Rx Instructions: As directed every 4-6 hours as needed Trelegy Ellipta 100-62.5-25 mcg blister with device 1 inh inhalation DAILY PRN (Reason: Shortness Of Breath Or Wheezing) omeprazole 20 mg capsule,delayed release(DR/EC) See Rx Instructions .ROUTE .COMPLEX Qty: 90 3RF Dose Instruction: TAKE 1 CAPSULE BY MOUTH EVERY DAY Rx Instructions: TAKE 1 CAPSULE BY MOUTH EVERY DAY hydrochlorothiazide 25 mg tablet See Rx Instructions .ROUTE .COMPLEX Qty: 90 3RF Dose Instruction: TAKE 1 TABLET BY MOUTH EVERY DAY FOR HIGH BLOOD PRESSURE Rx Instructions: TAKE 1 TABLET BY MOUTH EVERY DAY FOR HIGH BLOOD PRESSURE losartan 100 mg tablet See Rx Instructions .ROUTE .COMPLEX Qty: 90 3RF Dose Instruction: TAKE 1 TABLET BY MOUTH EVERY DAY FOR HIGH BLOOD PRESSURE Rx Instructions: TAKE 1 TABLET BY MOUTH EVERY DAY FOR HIGH BLOOD PRESSURE prednisone 20 mg tablet See Rx Instructions .ROUTE .COMPLEX Qty: 30 0RF Hold Instructions: Doctor's Order Dose Instruction: TAKE 1 TABLET BY MOUTH DAILY NEEDED FOR DYSPNEA Rx Instructions: TAKE 1 TABLET BY MOUTH DAILY NEEDED FOR DYSPNEA metoprolol tartrate 100 mg tablet See Rx Instructions .ROUTE .COMPLEX Qty: 180 3RF Dose Instruction: TAKE 1 TABLET BY MOUTH TWICE A DAY FOR HIGH BLOOD PRESSURE Rx Instructions: TAKE 1 TABLET BY MOUTH TWICE A DAY FOR HIGH BLOOD PRESSURE albuterol sulfate 90 mcg/actuation Hfa Aerosol Inhaler 2 puff INHALATION Q4H PRN (Reason: Shortness Of Breath) ipratropium-albuterol 0.5 mg-3 mg(2.5 mg base)/3 mL solution for nebulization 3 ml inhalation Q4H PRN (Reason: shortness of breath or wheezing) Qty: 180 0RF Rx Instructions: until breathing returns to target peak flow/parameters Discontinued citalopram 20 mg tablet See Rx Instructions .ROUTE .COMPLEX Qty: 90 3RF Dose Instruction: TAKE 1 TABLET BY MOUTH EVERY DAY Rx Instructions: TAKE 1 TABLET BY MOUTH EVERY DAY Discharge Orders: Discharge Order (Routine); Ordered 06/24/23 Ordered By: Brent Wyatt Referrals: [facility] [Outside] - 06/27/23 1:30 pm (Initial appointment scheduled for 06/27/23 13:30 check in for Rosalie Almeida. ) Walker Sarabia MD [Primary Care Provider] - Discharge Diet: Advance as tolerated Discharge Activity: Resume usual activity Patient Instructions: Opioid Safety Discharge Attestations NPU Time Spent in Discharge Care*: less than 30 min Specific Discharge Activities: Specific discharge activities: educating patient and discussing with supportive employment case manager/social workers/dc planners Status at Discharge: Cognitive status at discharge: cognitively intact, Behavioral status at discharge: cooperative, Coding Level of Care Code Acute [facility] DC note Diagnoses Major depressive disorder, recurrent episode F33.9 Generalized anxiety disorder F41.1 Suicidal ideation R45.855
[2023-06-24 14:00] VITALS: BP 105/69; PULSE 78; RESP 16; TEMP 36.5; O2SAT 96
[2023-06-24 14:11] VITALS: BP 117/79
== END 2023-06-24 15:33 | disposition home or self-care (01) | DRG 885 ==
LOC: ER 06-14 00:47 → NP 06-14 01:15
PROVIDERS: Nurse Practitioner Family; Admitting Provider Psychiatry & Neurology Psychiatry; Emergency Provider Emergency Medicine; PCP Family Medicine; Visit Provider Psychiatry & Neurology Psychiatry
DX: F33.9 Major depressive disorder, recurrent, unspecified (principal); R45.851 Suicidal ideations; F41.1 Generalized anxiety disorder; G47.33 Obstructive sleep apnea (adult) (pediatric); M62.838 Other muscle spasm; G47.00 Insomnia, unspecified
CPT/HCPCS: 36415; 80053; 80306; 80307; 81003; 84443; 85025; 94640; 97150; 97165; 99285; J7613; J7626

== ENCOUNTER 2023-11-09 03:29 | Inpatient (IN) | payer OTHER, SELFPAY ==
[2023-11-09] VITALS (11 sets, daily range): BP systolic 154–194; BP diastolic 101–134; PULSE 73–89; RESP 13–22; TEMP 36.5–36.6; O2SAT 95–96; BMI 44.3
--- NOTE | 2023-11-09 03:38 | ECG_ITS ---
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 Measurements Intervals [place] Rate: 77 P: 1 IA: 205 QRS: 15 QRSD: 101 T: 50 QT: 388 QTc: 441 Interpretive Statements SINUS RHYTHM POSSIBLE LEFT ATRIAL ENLARGEMENT [-0.1mV P-WAVE IN V1/V2] POSSIBLE RIGHT VENTRICULAR CONDUCTION DELAY [RSR (QR) IN V1/V2] Compared to ECG 04/03/2023 07:50:26 T-wave abnormality no longer present Electronically Signed On 11-09-2023 7:49:49 SOLE MOLDING MACHINE OPERATOR by Felice Hughes M.D. [id number]
--- NOTE | 2023-11-09 03:38 | CTR_ITS ---
PROCEDURE INFORMATION: Exam: CT Head Without Contrast Exam date and time: 11/09/2023 3:54 AM Age: 58 years old Clinical indication: Pain; Headache; Patient HX: JOLLY with hypertension TECHNIQUE: Imaging protocol: Computed tomography of the head without contrast. Radiation optimization: All CT scans at this facility use at least one of these dose optimization techniques: automated exposure control; mA and/or kV adjustment per patient size (includes targeted exams where dose is matched to clinical indication); or iterative reconstruction. COMPARISON: CT head wo con* [id number] 08/07/2021 10:03 PM RADIATION DOSE METRICS: Total DLP (mGy-cm): 1130.44 FINDINGS: Brain: Mildly scattered periventricular and subcortical white matter hypodensities are identified. There is no evidence of acute parenchymal hemorrhage, extra-axial collection, or acute infarction. There is no mass effect, midline shift, or downward herniation. Cerebral ventricles: No ventriculomegaly. Paranasal sinuses: See Nasal cavity finding. Mastoid air cells: Visualized mastoid air cells are well aerated. Nasal cavity: There is a polypoid mass identified in the right nasal cavity measuring 2.9 x 2 cm. There is a large secretion in the right maxillary sinus. There is moderate opacification of the ethmoid air cells. There is a small left maxillary sinus secretion. Bones/joints: Unremarkable. No acute fracture. Soft tissues: Unremarkable. CT/CT head wo con* [id number] IMPRESSION: 1. No evidence of acute intracranial process. 2. Mildly scattered white matter hypodensities. Differential considerations include chronic microvascular ischemic change, demyelinating disease, or gliosis from infectious/inflammatory source. 3. Sinus disease as described. 4. Possible large right nasal polyp. Correlation with direct visualization is recommended.
--- NOTE | 2023-11-09 03:38 | ED.C_ITS ---
HPI - Psych 2 General: Chief Complaint: Psychiatric Symptoms Stated Complaint: high bs,high bp, SI Time Seen by Provider: 11/09/23 03:31 Source: patient Mode of arrival: ambulatory Limitations: no limitations History of Present Illness: 58-year-old male states that he has been going through a lot of stress he states he had recently lost his job and is going through a separation he states has been having suicidal thoughts. He states he has a plan of writing a suicide note and hang himself. He also has a history of hypertension he states he is not a diabetic but his blood sugars have been running high has had headaches for last 2 weeks he states he had some blurred vision his vision here appears normal he is able to see my fingers from a distance. He denies any chest pain denies any vomiting states he did not take his blood pressure meds today Associated symptoms: Reports depression and suicidal ideation Review of Systems 2 Const: Denies: fever(s), chills, body aches or change in appetite Eyes: Reports: blurry vision ENMT: Denies: throat pain or dental pain Card: Denies: chest pain Resp: Denies: dyspnea GI: Denies: abdominal pain, nausea, vomiting or diarrhea Musc: Denies: neck pain or back pain Skin/Breast: Denies: rash Neuro: Reports: headache(s) Psych: Reports: depression and suicidal ideation PFSH ED 2 PFSH: Medical History Psychiatric care Hypertension Chest pain Immunization counseling High risk medication use HTN (hypertension) Major depressive disorder Chronic steroid use Polymyalgia rheumatica Asthma Surgical History History of umbilical hernia repair (01/26/20) H/O esophagogastroduodenoscopy Status post colonoscopy History of nasal surgery H/O knee surgery H/O hand surgery History of appendectomy Family History Father Lung disease Asthma Denies family history of Diabetes Clotting disorder Dementia Chronic kidney disease (CKD) Social History Smoking and tobacco/nicotine status: never used tobacco/nicotine Alcohol intake: never Substance/Drug Use: never Lives independently: Yes Household members: spouse Marital status: Current occupational status: employed Current occupational exposures/hazards: Yes Do you think of yourself as: Straight/Heterosexual Current gender identity: Male Physical Exam 2 Const: COMMON NORMALS: no acute distress, patient oriented x3 and healthy appearing HENMT: COMMON NORMALS: normocephalic and atraumatic HEAD & SCALP: n ormocephalic and atraumatic Eye: COMMON NORMALS: Equal, round and reactive pupils present and EOMs intact bilaterally PUPIL: Yes Equal, round and reactive pupils present Neck/C-Spine: COMMON NORMALS: full ROM and supple Chest: COMMONS NORMALS: normal inspection of the chest and normal palpation of entire chest wall Resp: COMMON NORMALS: normal respiratory effort, No retractions, No use of accessory muscles and clear to auscultation bilaterally AUSCULTATION: clear to auscultation bilaterally Cardio: COMMON NORMALS: regular rate, regular rhythm and No murmurs present (Cardio) RATE: regular rate RHYTHM: regular rhythm GI: COMMON NORMALS: Normal to inspection, nondistended, normoactive bowel sounds present, Soft to palpation, non-tender and no masses PALPATION: Yes Soft to palpation Extremity: COMMON NORMALS: normal to inspection and full ROM Neuro: COMMON NORMALS: patient oriented x3, moves all extremities and no focal motor deficits Psych: COMMON NORMALS: mental status grossly normal, Normal thought process present and cooperative THOUGHT PROCESS: Normal thought process present T HOUGHT CONTENT: Yes Suicidality present Skin: COMMON NORMALS: no rashes or lesions noted and no wounds GENERAL SKIN EXAM: no rashes or lesions noted Course 2 Vital Signs: Vital signs: Vital Signs Temperature 98 F 11/09/23 03:34 Pulse Rate 76 11/09/23 04:11 Respiratory Rate 13 11/09/23 04:11 Blood Pressure 154/101 11/09/23 04:11 Pulse Oximetry 96 11/09/23 04:11 Oxygen Delivery Me thod Room Air 11/09/23 04:11 MDM - Psych Medical Decision Making Patient presents here with suicidal ideations with a plan to hang himself patient is medically cleared he is had headaches head CT shows no acute intracranial findings his headaches improved here he is hypertensive he has a long history of high blood pressure his blood pressure is improved he is stable for admission I spoke to Dr. Disla and will admit. Medical Records I reviewed the patient's medical records. Lab Data I reviewed the patient's lab results. 11/09/23 03:42 11/09/23 03:[address] 11/09/23 03:38 IMPRESSION: 1. No evidence of acute intracranial process. 2. Mildly scattered white matter hypodensities. Differential considerations include chronic microvascular ischemic change, demyelinating disease, or gliosis from infectious/inflammatory source. 3. Sinus disease as described. 4. Possible large right nasal polyp. Correlation with direct visualization is recommended. Laboratory Results WBC 4.98 10^3/uL (3.29-11.43) 11/09/23 03:42 RBC 4.48 10^6/uL (3.85-5.65) 11/09/23 03:42 Hgb 13.40 g/dL (11.27-16.99) 11/09/23 03:42 Hct 41.5 % (37-53) 11/09/23 03:42 MCV 92.6 fl (82-101) 11/09/23 03:42 MCH 29.9 pg (27-33) 11/09/23 03:42 MCHC 32.3 g/dL (30-55) 11/09/23 03:42 RDW 15.1 % (12.1-15.1) 11/09/23 03:42 Plt Count 246 10^3/cmm (157-399) 11/09/23 03:42 MPV 9.5 fL (7.4-10.4) 11/09/23 03:42 Neut % (Auto) 55.9 % 11/09/23 03:42 Lymph % (Auto) 24.7 % 11/09/23 03:42 Angelina % (Auto) 11.4 % 11/09/23 03:42 Eos % (Auto) 6.8 % 11/09/23 03:42 Baso % (Auto) 1.0 % 11/09/23 03:42 Neut # (Auto) 2.78 10^3/uL (1.8-7.7) 11/09/23 03:42 Lymph # (Auto) 1.2 10^3/uL (0.8-4.8) 11/09/23 03:42 Angelina # (Auto) 0.6 10^3/uL (0.2-0.9) 11/09/23 03:42 Eos # (Auto) 0.3 10^3/uL (0.0-0.8) 11/09/23 03:42 Baso # (Auto) 0.1 10^3/uL (0.0-0.1) 11/09/23 03:42 Nucleated RBC % (auto) 0 % 11/09/23 03:42 Nucleated RBCs # 0.0 /100WBC 11/09/23 03:42 Sodium 136 mmol/L (136-145) 11/09/23 03:42 Potassium 4.1 mmol/L (3.5-5.1) 11/09/23 03:42 Chloride 102 mmol/L (98-107) 11/09/23 03:42 Carbon Dioxide 22 mmol/L (22-29) 11/09/23 03:42 Anion Gap 16.1 (5-19) 11/09/23 03:42 BUN 9 mg/dL (6-20) 11/09/23 03:42 Creatinine 1.0 mg/dL (0.7-1.2) 11/09/23 03:42 GFR Calculation 77.3 mL/min (90-130) L 11/09/23 03:42 Glucose 108 mg/dL (65-115) 11/09/23 03:42 POC Glucose 105 mg/dL (70-110) 11/09/23 04:02 Calculated Osmolality 281 mOsm/kg (285-295) L 11/09/23 03:42 Calcium 8.4 mg/dL (8.5-10.5) L 11/09/23 03:42 Total Bilirubin 0.4 mg/dL (0.15-1.2) 11/09/23 03:42 AST 132 U/L (0-40) H 11/09/23 03:42 ALT 81 U/L (0-41) H 11/09/23 03:42 Alkaline Phosphatase 45 U/L (40-130) 11/09/23 03:42 Total Protein 7.3 g/dL (6.6-8.7) 11/09/23 03:42 Albumin 3.8 g/dL (3.5-5.2) 11/09/23 03:42 Globulin 3.5 g/dL (1.3-4.6) 11/09/23 03:42 Salicylates 0.5 mg/dL (3-10) L 11/09/23 03:42 Acetaminophen < 5.0 ug/mL (10-30) L 11/09/23 03:42 Ethyl Alcohol < 10 mg/dL (0-10) 11/09/23 03:42 All radiology interpretation(s) finalized by discharge EKG Data EKG 1: I personally reviewed and interpreted this EKG as follows: EKG interpretation date: 11/09/23 EKG interpretation time: 04:05 Interpretation: nsr hr [address] or t wave abnormalities qrs 101 qtc 420 Discharge Plan Discharge Patient Disposition: Admitted As Inpatient Clinical Impression: Suicidal ideation, Hypertension Condition: Stable Prescriptions: No Action fluticasone propionate [Flonase Allergy Relief] 50 mcg/actuation spray,suspension 1 spray intranasal BID PRN (Reason: nasal congestion) Qty: 16 0RF Rx Instructions: administer into each nostril (DME) Nebulizer machine with mask and tubing See Rx Instructions .Route .MEDSUPPLY Qty: 1 0RF Rx Instructions: As directed every 4-6 hours as needed Trelegy Ellipta 100-62.5-25 mcg blister with device 1 inh inhalation DAILY PRN (Reason: Shortness Of Breath Or Wheezing) omeprazole 20 mg capsule,delayed release(DR/EC) See Rx Instructions .ROUTE .COMPLEX Qty: 90 3RF Dose Instruction: TAKE 1 CAPSULE BY MOUTH EVERY DAY Rx Instructions: TAKE 1 CAPSULE BY MOUTH EVERY DAY hydrochlorothiazide 25 mg tablet See Rx Instructions .ROUTE .COMPLEX Qty: 90 3RF Dose Instruction: TAKE 1 TABLET BY MOUTH EVERY DAY FOR HIGH BLOOD PRESSURE Rx Instructions: TAKE 1 TABLET BY MOUTH EVERY DAY FOR HIGH BLOOD PRESSURE losartan 100 mg tablet See Rx Instructions .ROUTE .COMPLEX Qty: 90 3RF Dose Instruction: TAKE 1 TABLET BY MOUTH EVERY DAY FOR HIGH BLOOD PRESSURE Rx Instructions: TAKE 1 TABLET BY MOUTH EVERY DAY FOR HIGH BLOOD PRESSURE prednisone 20 mg tablet See Rx Instructions .ROUTE .COMPLEX Qty: 30 0RF Hold Instructions: Doctor's Order Dose Instruction: TAKE 1 TABLET BY MOUTH DAILY NEEDED FOR DYSPNEA Rx Instructions: TAKE 1 TABLET BY MOUTH DAILY NEEDED FOR DYSPNEA metoprolol tartrate 100 mg tablet See Rx Instructions .ROUTE .COMPLEX Qty: 180 3RF Dose Instruction: TAKE 1 TABLET BY MOUTH TWICE A DAY FOR HIGH BLOOD PRESSURE Rx Instructions: TAKE 1 TABLET BY MOUTH TWICE A DAY FOR HIGH BLOOD PRESSURE Paxlovid 300 mg (150 mg x 2)-100 mg tablets,dose pack See Rx Instructions PO .COMPLEX Qty: 30 0RF Rx Instructions: take TWO 150 mg tablets of nirmatrelvir with ONE 100 mg tablet of ritonavir twice daily for 5 days PO albuterol sulfate 90 mcg/actuation Hfa Aerosol Inhaler 2 puff INHALATION Q4H PRN (Reason: Shortness Of Breath) ipratropium-albuterol 0.5 mg-3 mg(2.5 mg base)/3 mL solution for nebulization 3 ml inhalation Q4H PRN (Reason: shortness of breath or wheezing) Qty: 180 0RF Rx Instructions: until breathing returns to target peak flow/parameters doxepin 25 mg Capsule 50 mg PO BEDTIME 30 Days Qty: 60 1RF methylphenidate HCl 10 mg Tablet 10 mg PO 0800,1200,1500 Qty: 90 0RF aripiprazole 10 mg Tablet 10 mg PO DAILY 30 Days Qty: 30 1RF amlodipine 10 mg Tablet 10 mg PO DAILY 30 Days Qty: 30 1RF citalopram 20 mg Tablet 40 mg PO DAILY 30 Days Qty: 60 1RF Referrals: Walker Sarabia MD [Primary Care Provider] - Coding Level of Care Code ED [facility] for [facility] Obregon
[2023-11-09] MEDS: hyDRALAzine 20 mg/mL INJ 1 mL IVP (03:51)
[2023-11-09 04:03] LABS: Basophils # 0.1 10^3/uL (0.0-0.1); Eosinophils # 0.3 10^3/uL (0.0-0.8); Eosinophils % 6.8 %; Hematocrit 41.5 % (37-53); Lymphocytes # 1.2 10^3/uL (0.8-4.8); Lymphocytes % 24.7 %; Mean Corpuscular HGB Conc 32.3 g/dL (30-55); Mean Corpuscular Hemoglobin 29.9 pg (27-33); Mean Corpuscular Volume 92.6 fl (82-101); Mean Platelet Volume 9.5 fL (7.4-10.4); Monocytes # 0.6 10^3/uL (0.2-0.9); Monocytes % 11.4 %; Neutrophils # 2.78 10^3/uL (1.8-7.7); Neutrophils % 55.9 %; Nucleated Red Blood Cells % 0 %; Platelet Count 246 10^3/cmm (157-399); Red Blood Count 4.48 10^6/uL (3.85-5.65); Red Cell Distribution Width 15.1 % (12.1-15.1); White Blood Count 4.98 10^3/uL (3.29-11.43)
[2023-11-09 04:20] LABS: Glucose Point of Care 105 mg/dL (70-110)
[2023-11-09 04:23] LABS: Alanine Aminotransferase 81 U/L (0-41); Albumin Level 3.8 g/dL (3.5-5.2); Alkaline Phosphatase 45 U/L (40-130); Anion Gap 16.1 (5-19); Aspartate Amino Transferase 132 U/L (0-40); Blood Urea Nitrogen 9 mg/dL (6-20); Calcium 8.4 mg/dL (8.5-10.5); Carbon Dioxide 22 mmol/L (22-29); Chloride 102 mmol/L (98-107); Creatinine Clr Calc Pharmacy 112.9931; Globulin 3.5 g/dL (1.3-4.6); Glomerular Filtration Rate 77.3 mL/min (90-130); Glucose 108 mg/dL (65-115); Osmolality Calculated 281 mOsm/kg (285-295); Potassium 4.1 mmol/L (3.5-5.1); Salicylate 0.5 mg/dL (3-10); Sodium 136 mmol/L (136-145); Total Bilirubin 0.4 mg/dL (0.15-1.2); Total Protein 7.3 g/dL (6.6-8.7)
[2023-11-09 04:24] LABS: Acetaminophen < 5.0 ug/mL (10-30); Alcohol Level < 10 mg/dL (0-10)
[2023-11-09] MEDS: metoprolol tartrate 50 mg Tablet PO (04:42)
[2023-11-09] MEDS: metoclopramide 5 mg/mL SDV 2 mL 10 MG IVP (04:43)
[2023-11-09] MEDS: diphenhydrAMINE 50 mg/mL SDV 1mL IVP (04:46)
[2023-11-09] MEDS: hyDRALAzine 20 mg/mL INJ 1 mL 10 MG IVP (04:47)
[2023-11-09 05:57] LABS: Amphetamines Screen Urine Negative (Negative); Barbiturates Screen Urine Negative (Negative); Benzodiazepines Screen Urine Negative (Negative); Cocaine Screen Urine Negative (Negative); Opiate Screen Urine Negative (Negative); PCP Screen Urine Negative (Negative); THC Screen Urine Negative (Negative)
--- NOTE | 2023-11-09 17:03 | P.NPUHP_ITS ---
Providers/Chief Complaint 2 Admitting Physician: Jese Disla MD Primary Care Provider: Walker Sarabia MD Chief Complaint: high bs,high bp, SI HPI [facility] History of Present Illness Madi Lowe is a 58 year old male previously discharged from the [facility] in June 2023 with a history of major depressive disorder and generalized anxiety disorder. The patient was admitted through the emergency department after reporting that he was having a thought of wanting to hang himself. He stated that on 11/09/2023 he had intended on writing a suicide note. He reports that he had recently lost his job at [employer] on October 03 and states that he has continued to spiral out of control with depression. He states that he had stopped his psychiatric medicine approximately 2 months ago. He reports low energy and low motivation. He reports having thoughts of wanting to hang himself. He reports that he has been able to sleep with some difficulty. He reports feeling tired. He reports that nothing provides him pleasure anymore. He reports that he began to have more thoughts of wanting to kill himself over the past week. He continues to report having difficulties with concentration. He often reports feeling hopeless and states that he frequently cries. He states that he continues to live in the household with his even though they are . He reports severe financial stressors that have exacerbated his condition. He reports that he has had problems with being easily distracted and often reports that he is restless and on edge. He reports that he struggles with chronic worry. He states that his problems had begun after he had been caught with having an emotional relationship with another woman several months ago. He denied any khadar nor did he endorse any history of psychosis. Inpatient psychiatric history: Patient has a history of multiple inpatient hospitalizations with most recent hospitalization having occurred at the [facility] in June 2023. patient has a history of suicide attempts including overdose approximately 10 years ago. Outpatient psychiatric history: None currently as he had 1 encounter at the [facility] in June 2023 drug and alcohol history: None reported allergies: No known drug allergies medical history: Asthma, hypertension, gastroesophageal reflux disease, obstructive sleep apnea, polymyalgia rheumatica surgical history: Multiple knee surgeries, nose reconstruction, appendectomy Medications: Albuterol inhaler, fluticasone inhaler, hydrochlorothiazide, losartan, prednisone, omeprazole, metoprolol history: None legal history: None family psychiatric history: None social history: Patient reports being raised in [place] by his biological parents. He had reported having graduated high school. He has 2 siblings. There had been no prior history of sexual physical or emotional abuse. He had been 1 time prior for 19 years and is currently but from his of 12 years. He has a 2 adult grown children from his previous marriage. He had lost a job that he had worked up for several years and [employer] and is struggled with being unemployed. He currently lives in [facility] with his . He reports that he is currently unemployed. Excerpt from 06/24/23 Discharge Summary from [facility] Discharge Diagnosis (1) Major depressive disorder, recurrent episode: Status: Acute (2) Generalized anxiety disorder: Status: Acute (3) Suicidal ideation: Status: Acute Reason for Visit History of Present Illness Madi Lowe is a 57 year old male with a history of multiple inpatient hospitalizations last admitted psychiatrically approximately 10 years ago who presented to the emergency department stating that he would hang self with ratchet straps on his truck.? The patient reports that he has had more frequent suicidal thoughts for the past several months since he had lost his job at a [employer].? He reports that he had an argument with his after she had learned that he had been having an emotional affair with another woman at work.? He also reports significant financial stressors as he has been unable to maintain a job and pay his bills on his new home.? She had asked the patient to leave the home and the patient reports that he has been feeling more hopeless over the past few days.? He reports low energy, anhedonia, increased anxiety and chronic sleep continuity disruption.? He reports that he frequently feels sad about the future and states that he is been battling depression for several months.? He had reported a past history of major depressive episodes that had remitted but states that his depression has been worse.? He had reported having no recent psychotherapy.? He reports having chronic problems with anxiety and states that he feels that his worry is out of control.? The patient reports feelings of loneliness and isolation.? He reports having difficulties with managing his stress.? The patient denies any history of psychosis.? He denies any history of substance abuse.? He reports no history of khadar.? He reports having frequent problems with muscle tension and reports having difficulties with concentration.? He denies any history of panic attacks. Inpatient psychiatric history: He reports having several inpatient hospitalizations with his most recent hospitalization having occurred 10 years ago.? He has a significant history of overdose on pills in the past with suicidal intent. Outpatient psychiatric history: None, he has been prescribed Celexa 20 mg daily by his primary care physician. Drug and alcohol history: None reported Allergies: No known drug allergies Medical history: Asthma, hypertension, gastroesophageal reflux disease, probably myalgia rheumatica, obstructive sleep apnea Surgical history: History of hand surgery, history of knee surgery, history of appendectomy, history of nasal surgery, history of umbilical hernia repair Current medications: Celexa 20 mg daily, albuterol, hydrochlorothiazide, ipratropium, losartan, metoprolol, omeprazole, prednisone Legal history: None history: None Family psychiatric history: None Social history: Patient was born in [place] and raised by his biological parents.? He had graduated from high school.? He has 2 siblings.? He had reported no prior history of trauma.? He has reported that he has been 2 times and his current marriage has been 12 years.? He has 2 adult grown children from a previous marriage.? He denied any history of sexual physical or emotional abuse.? 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 He had been living with his in [facility] and reports significant financial stressors.? He had reported no history of learning disorders or any history of developmental delays. Hospital Course Hospital Course During the hospitalization, the patient had routine laboratory studies which were within normal limits except for a few outliers.? Additionally, there was a general medical evaluation which was also within normal limits and revealed no new acute processes.? At the time of discharge, lethality was denied and psychosis was resolving.? Mood and anxiety were well managed.? The patient endorsed a plan to avoid all drugs of abuse and follow up with the aftercare recommendations of the treatment team.? The patient was evaluated and deemed to be absent credible lethality and had achieved the maximum benefit from an inpatient hospitalization, and so was discharged.? The patient's Celexa was titrated up to 40 mg with initially no improvement noted. Abilify was added and titrated up to 10 mg adjunctively to treat the patient's depression. He continued to struggle with fatigue and low energy and it appeared that he needed an adjustment with his CPAP machine upon discharge. A low-dose of methylphenidate was added to target a lack of energy and this did appear to show some improvement. Doxepin was added at night to target insomnia. He had expressed desire to follow-up with psychotherapy and medication management upon leaving the hospital. Meds [facility] Home Medications Medication Instructions Recorded Confirmed Last Taken Type albuterol sulfate 90 mcg/actuation 2 puff inhalation Q4H PRN 01/12/21 07/07/23 Unknown History aerosol inhaler Shortness Of Breath omeprazole 20 mg capsule,delayed See Rx Instructions .Route 09/02/22 07/07/23 Unknown Rx release .COMPLEX #90 caps fluticasone fur. 100 mcg-umeclid 1 inh inhalation DAILY PRN 10/08/22 07/07/23 Unknown History 62.5 mcg-vilant 25 mcg Shortness Of Breath Or Wheezing inhalat.powder (Trelegy Ellipta) fluticasone propionate 50 1 spray intranasal BID PRN nasal 10/24/22 07/07/23 Unknown Rx mcg/actuation nasal congestion #16 grams spray,suspension (Flonase Allergy Relief) hydrochlorothiazide 25 mg tablet See Rx Instructions .Route 11/11/22 07/07/23 Unknown Rx .COMPLEX #90 tabs losartan 100 mg tablet See Rx Instructions .Route 11/11/22 07/07/23 Unknown Rx .COMPLEX #90 tabs prednisone 20 mg tablet See Rx Instructions .Route 01/24/23 07/07/23 Unknown Rx .COMPLEX #30 tabs ipratropium 0.5 mg-albuterol 3 mg 3 ml inhalation Q4H PRN shortness 04/03/23 07/07/23 Unknown Rx (2.5 mg base)/3 mL nebulization of breath or wheezing #180 mL soln metoprolol tartrate 100 mg tablet See Rx Instructions .Route 04/03/23 07/07/23 Unknown Rx .COMPLEX #180 tabs Nebulizer machine with mask and #1 ea 04/11/23 07/07/23 Unknown Rx tubing amlodipine 10 mg tablet 10 mg PO DAILY 30 days #30 tabs 06/24/23 07/07/23 Unknown Rx aripiprazole 10 mg tablet 10 mg PO DAILY 30 days #30 tabs 06/24/23 07/07/23 Unknown Rx citalopram 20 mg tablet 40 mg (2 x 20 mg) PO DAILY 30 days 06/24/23 07/07/23 Unknown Rx #60 tabs doxepin 25 mg capsule 50 mg (2 x 25 mg) PO BEDTIME 30 06/24/23 07/07/23 Unknown Rx days #60 caps methylphenidate HCl 10 mg tablet 10 mg PO 0800,1200,1500 #90 tabs 06/24/23 07/07/23 Unknown Rx nirmatrelvir 300 mg (150 mg See Rx Instructions PO .COMPLEX 09/24/23 Unknown Rx x2)-ritonavir 100 mg tablet,dose #30 tabs pack (Paxlovid) Allergies Allergy/AdvReac Type Severity Reaction Status Date / Time No Known Allergies Allergy Verified 11/09/23 05:23 PFSH [facility] 2 PFSH: Medical History Psychiatric care Hypertension Chest pain Immunization counseling High risk medication use HTN (hypertension) Major depressive disorder Chronic steroid use Polymyalgia rheumatica Asthma Surgical History History of umbilical hernia repair (01/26/20) H/O esophagogastroduodenoscopy Status post colonoscopy History of nasal surgery H/O knee surgery H/O hand surgery History of appendectomy Family History Father Lung disease Asthma Denies family history of Diabetes Clotting disorder Dementia Chronic kidney disease (CKD) Social History Smoking and tobacco/nicotine status: never used tobacco/nicotine Alcohol intake: never Substance/Drug Use: never Lives independently: Yes Household members: spouse Marital status: Current occupational status: employed Current occupational exposures/hazards: Yes Do you think of yourself as: Straight/Heterosexual Current gender identity: Male Mental Status Exam 2 MSE Comments: Is a casually dressed obese white male who appeared his stated age. His hygiene was fair. There was no evidence of any abnormal involuntary motor movements tics or tremors appreciated. There was significant psychomotor retardation. His speech was monotone in quality and decreased in volume and decreased in rate. His thought process was linear logical and goal-directed. His thought content showed evidence of suicidal ideation with a plan to hang himself. He denied any homicidal ideation. He did not appear to be responding to internal stimuli. There was no evidence of delusional thinking. His mood was described as depressed. His affect was restricted in range and mood-congruent. He was alert and oriented to person place and time. His recent and remote memory appeared grossly intact. His insight is poor. His judgment is poor. His impulse control appeared limited at this time. His recent and remote memory appeared grossly intact. Vitals/I&O/Wt Last Vital Signs Temp 97.8 F 11/09/23 14:00 Pulse 89 11/09/23 14:00 Resp 16 11/09/23 14:00 BP 186/106 11/09/23 14:00 Pulse Ox 95 11/09/23 14:00 O2 Del Method Room Air 11/09/23 14:00 Weight last 48 hrs Weight 136.078 kg Weight 136.078 kg Data [facility] 11/09/23 03:42 11/09/23 03:42 A&P Assessment and plan (1) Major depressive disorder, recurrent episode: (2) Generalized anxiety disorder: (3) Suicidal ideation: Plan 58-year-old white male with a past history of major depressive episodes currently endorsing depressed mood and generalized anxiety disorder with continued stress in the home environment. 1.?Encourage individual, group and milieu therapy. 2.?? Recommend sober living treatment at the highest level of care to which the patient is willing to commit. 3.? Continue q-15 minute checks for safety.? 4. Restart Celexa and abilify as prescribed while restarting CPAP and antihypertensive medications as well. Involuntary Hold Information 2 96 Hour Hold: 96 Hour Involuntary Admission: Yes 96 Hour Hold Ending Date: 11/17/23 96 Hour Hold Ending Time: 00:01 Attestations [facility] 2 Medical Necessity Statement*: Inpatient hospitalization is medically necessary and deemed to be the clinically appropriate intervention at this time. ? We will monitor/initiate medications and make changes as indicated.? He will be in the hospital for over 2 midnights.? His likely length of stay 5-7 days. Coding Level of Care Code Acute Code for [facility] Diagnoses Major depressive disorder, recurrent episode F33.9 Generalized anxiety disorder F41.1 Suicidal ideation R45.851
[2023-11-09] MEDS: ARIPiprazole 10 mg Tablet PO (18:02)
[2023-11-09] MEDS: citalopram 20 mg Tablet PO (18:02)
[2023-11-09] MEDS: amlodipine 10 mg Tablet PO (19:58)
[2023-11-09] MEDS: losartan 50 mg Tablet PO (19:58)
[2023-11-09] MEDS: trazodone 50 mg Tablet PO ×2 (19:58→22:04)
[2023-11-09] MEDS: hyDROXYzine 25 mg Capsule 50 MG PO (22:04)
[2023-11-10] VITALS (7 sets, daily range): BP systolic 136–154; BP diastolic 79–101; PULSE 75–94; RESP 14–19; TEMP 36.4–36.6; O2SAT 95–97
[2023-11-10] MEDS: losartan 50 mg Tablet PO (08:57)
[2023-11-10] MEDS: citalopram 20 mg Tablet 40 MG PO (08:57)
[2023-11-10] MEDS: amlodipine 10 mg Tablet PO (08:57)
[2023-11-10] MEDS: ARIPiprazole 10 mg Tablet PO (08:58)
--- NOTE | 2023-11-10 13:25 | P.NPUPN_ITS ---
Subjective NPU 2 Subjective: 58-year-old white male admitted with wor sening depression and suicidal ideation with a plan to hang himself with hx of NATE and MDD. The patient continued to report having thoughts of wanting to hang himself. He had continued hypertension and additional medications were initiated to target his hypertension. He had endorsed noncompliance with his psychiatric medications for several months. He had reported improved mood when taking his previously prescribed medications including Celexa and Abilify. He reported problems currently with concentration. He continued to report hopelessness and stated that he remains stressed about his future. The patient had reported that he had problems with even getting out of bed and stated that at the this current state he could not work. He had reported immense frustration and feelings of guilt for being a burden on his family financially. He had reported continued struggles with sexual addiction issues and reports not receiving therapy at this time. Mental Status Exam 2 MSE Comments: Is a casually dressed obese white male who appeared his stated age. His hygiene was fair. There was no evidence of any abnormal involuntary motor movements tics or tremors appreciated. There was significant psychomotor retardation. His speech was monotone in quality and decreased in volume and decreased in rate. His thought process was linear logical and goal-directed. His thought content showed evidence of suicidal ideation with a plan to hang himself. He denied any homicidal ideation. He did not appear to be responding to internal stimuli. There was no evidence of delusional thinking. His mood was endorsed as depressed. His affect was restricted in range and mood-congruent. He was alert and oriented to person place and time. His recent and remote memory appeared grossly intact. His insight is poor. His judgment is poor. His impulse control appeared limited at this time. His recent and remote memory appeared grossly intact. Vitals/I&O/Wt Last Vital Signs Temp 98 F 11/10/23 12:37 Pulse 88 11/10/23 12:37 Resp 14 11/10/23 12:37 BP 154/97 11/10/23 12:37 Pulse Ox 97 11/10/23 12:37 O2 Del Method BiPAP 11/10/23 06:00 FiO2 21 11/10/23 04:16 Weight last 48 hrs Weight 136.078 kg Weight 136.078 kg Data NPU 11/09/23 03:42 11/09/23 03:42 A&P Assessment and plan (1) Major depressive disorder, recurrent episode: (2) Generalized anxiety disorder: (3) Suicidal ideation: Plan 58-year-old white male with a past history of major depressive episodes currently endorsing depressed mood and generalized anxiety disorder with continued stress in the home environment. 1.?Encourage individual, group and milieu therapy. 2.?? Recommend sober living treatment at the highest level of care to which the patient is willing to commit. 3.? Continue q-15 minute checks for safety.? 4. Celexa 40mg daily, and abiliify 10mg daily as prescribed while restarting CPAP and antihypertensive medications as well. Involuntary Hold Information 2 96 Hour Hold: 96 Hour Involuntary Admission: Yes 96 Hour Hold Ending Date: 11/17/23 96 Hour Hold Ending Time: 00:01 Attestations NPU 2 Medical Necessity Statement*: Inpatient hospitalization is medically necessary and deemed to be the clinically appropriate intervention at this time. ? His likely length of stay 5-7 days. Coding Level of Care Code Acute Code for [facility] Fwd Diagnoses Major depressive disorder, recurrent episode F33.9 Generalized anxiety disorder F41.1 Suicidal ideation R45.851
[2023-11-10] MEDS: pantoprazole DR 40 mg Tablet 20 MG PO (14:40)
[2023-11-10] MEDS: hyDROXYzine 25 mg Capsule 50 MG PO (20:11)
[2023-11-10] MEDS: trazodone 50 mg Tablet PO (20:11)
[2023-11-11 06:00] VITALS: BP 154/104; PULSE 101; RESP 18; TEMP 36.6; O2SAT 94
[2023-11-11 09:41] VITALS: BP 154/104
[2023-11-11] MEDS: losartan 50 mg Tablet PO (09:41)
[2023-11-11] MEDS: ARIPiprazole 10 mg Tablet PO (09:41)
[2023-11-11] MEDS: pantoprazole DR 40 mg Tablet 20 MG PO (09:41)
[2023-11-11] MEDS: amlodipine 10 mg Tablet PO (09:41)
[2023-11-11] MEDS: citalopram 20 mg Tablet 40 MG PO (09:41)
[2023-11-11 14:00] VITALS: BP 145/99; PULSE 112; RESP 16; TEMP 36.8; O2SAT 96
--- NOTE | 2023-11-11 14:10 | P.NPUPN_ITS ---
Subjective NPU 2 Subjective: 58-year-old white male admitted with wor sening depression and suicidal ideation with a plan to hang himself with hx of NATE and MDD. The patient had reported that he was feeling better today. He had reported improved sleep. He stated that he needed to be back on these medications again as they had been helpful for her his depression. He had also reported a lack of compliance with his medications associated with his heart problems. He had endorsed desire to receive psychotherapy particularly to help with managing his depression and unspecified sexual issues. He had been able to attend groups today. He had endorsed having less thoughts of killing himself. He had endorsed some feelings of hopelessness. Mental Status Exam 2 MSE Comments: Is a casually dressed obese white male who appeared his stated age. His hygiene was fair. There was no evidence of any abnormal involuntary motor movements tics or tremors appreciated. There was mild to moderate psychomotor retardation. His speech was monotone in quality and normal in volume and decreased in rate. His thought process was linear logical and goal-directed. His thought content showed no suicidal or homicidal ideation today. He did not appear to be responding to internal stimuli. There was no evidence of delusional thinking. His mood was endorsed as better today. His affect was restricted in range and mood incongruent. He was alert and oriented to person place and time. His recent and remote memory appeared grossly intact. His insight is limited. His judgment is poor. His impulse control appeared limited at this time. His recent and remote memory appeared grossly intact. Vitals/I&O/Wt Last Vital Signs Temp 97.9 F 11/11/23 06:00 Pulse 101 H 11/11/23 06:00 Resp 18 11/11/23 06:00 BP 154/104 11/11/23 09:41 Pulse Ox 94 11/11/23 06:00 O2 Del Method Room Air 11/11/23 06:00 FiO2 21 11/10/23 20:51 Data NPU 11/09/23 03:42 11/09/23 03:42 A&P Assessment and plan (1) Major depressive disorder, recurrent episode: (2) Generalized anxiety disorder: (3) Suicidal ideation: Plan 58-year-old white male with a past history of major depressive episodes currently endorsing depressed mood and generalized anxiety disorder with continued stress in the home environment. 1.?Encourage individual, group and milieu therapy. 2.?? Recommend sober living treatment at the highest level of care to which the patient is willing to commit. 3.? Continue q-15 minute checks for safety.? 4. Celexa 40mg daily, and abiliify 10mg daily as prescribed while restarting CPAP and antihypertensive medications as well. Involuntary Hold Information 2 96 Hour Hold: 96 Hour Involuntary Admission: Yes 96 Hour Hold Ending Date: 11/17/23 96 Hour Hold Ending Time: 00:01 Attestations NPU 2 Medical Necessity Statement*: Inpatient hospitalization is medically necessary and deemed to be the clinically appropriate intervention at this time. ? His likely length of stay 2-4 days. Coding Level of Care Code Acute Code for [facility] Fwd Diagnoses Major depressive disorder, recurrent episode F33.9 Generalized anxiety disorder F41.1 Suicidal ideation R45.851
[2023-11-11] MEDS: hyDROXYzine 25 mg Capsule 50 MG PO (19:40)
[2023-11-11] MEDS: trazodone 50 mg Tablet PO (19:40)
[2023-11-11 20:44] VITALS: BP 161/103; PULSE 101; RESP 18; TEMP 36.4; O2SAT 96
[2023-11-12 06:00] VITALS: BP 137/79; PULSE 86; RESP 18; O2SAT 94
[2023-11-12] MEDS: losartan 50 mg Tablet PO (08:32)
[2023-11-12] MEDS: citalopram 20 mg Tablet 40 MG PO (08:32)
[2023-11-12] MEDS: amlodipine 10 mg Tablet PO (08:33)
[2023-11-12] MEDS: pantoprazole DR 40 mg Tablet 20 MG PO (08:33)
[2023-11-12] MEDS: ARIPiprazole 10 mg Tablet PO (08:33)
--- NOTE | 2023-11-12 12:04 | W.PM.NPUDCS ---
Diagnoses at Discharge Discharge Diagnosis (1) Major depressive disorder, recurrent episode: Status: Acute (2) Generalized anxiety disorder: Status: Acute (3) Suicidal ideation: Status: Resolved Reason for Visit Reason for Visit: high bs,high bp, SI Brief History: History of Present Illness Madi Lowe is a 57 year old male with a history of multiple inpatient hospitalizations last admitted psychiatrically approximately 10 years ago who presented to the emergency department stating that he would hang self with ratchet straps on his truck. The patient reports that he has had more frequent suicidal thoughts for the past several months since he had lost his job at a [employer]. He reports that he had an argument with his after she had learned that he had been having an emotional affair with another woman at work. He also reports significant financial stressors as he has been unable to maintain a job and pay his bills on his new home. She had asked the patient to leave the home and the patient reports that he has been feeling more hopeless over the past few days. He reports low energy, anhedonia, increased anxiety and chronic sleep continuity disruption. He reports that he frequently feels sad about the future and states that he is been battling depression for several months. He had reported a past history of major depressive episodes that had remitted but states that his depression has been worse. He had reported having no recent psychotherapy. He reports having chronic problems with anxiety and states that he feels that his worry is out of control. The patient reports feelings of loneliness and isolation. He reports having difficulties with managing his stress. The patient denies any history of psychosis. He denies any history of substance abuse. He reports no history of khadar. He reports having frequent problems with muscle tension and reports having difficulties with concentration. He denies any history of panic attacks. Inpatient psychiatric history: He reports having several inpatient hospitalizations with his most recent hospitalization having occurred 10 years ago. He has a significant history of overdose on pills in the past with suicidal intent. Outpatient psychiatric history: None, he has been prescribed Celexa 20 mg daily by his primary care physician. Drug and alcohol history: None reported Allergies: No known drug allergies Medical history: Asthma, hypertension, gastroesophageal reflux disease, probably myalgia rheumatica, obstructive sleep apnea Surgical history: History of hand surgery, history of knee surgery, history of appendectomy, history of nasal surgery, history of umbilical hernia repair Current medications: Celexa 20 mg daily, albuterol, hydrochlorothiazide, ipratropium, losartan, metoprolol, omeprazole, prednisone Legal history: None history: None Family psychiatric history: None Social history: Patient was born in [place] and raised by his biological parents. He had graduated from high school. He has 2 siblings. He had reported no prior history of trauma. He has reported that he has been 2 times and his current marriage has been 12 years. He has 2 adult grown children from a previous marriage. He denied any history of sexual physical or emotional abuse. 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 He had been living with his in [facility] and reports significant financial stressors. He had reported no history of learning disorders or any history of developmental delays. Hospital Course Hospital Course During the hospitalization, the patient had routine laboratory studies which were within normal limits except for a few outliers.? Additionally, there was a general medical evaluation which was also within normal limits and revealed no new acute processes.? At the time of discharge, lethality was denied and psychosis was resolving.? Mood and anxiety were well managed.? The patient endorsed a plan to avoid all drugs of abuse and follow up with the aftercare recommendations of the treatment team.? The patient was evaluated and deemed to be absent credible lethality and had achieved the maximum benefit from an inpatient hospitalization, and so was discharged. ? Involuntary Hold Information 96 Hour Hold: 96 Hour Involuntary Admission: Yes 96 Hour Hold Ending Date: 11/17/23 96 Hour Hold Ending Time: 00:01 Mental Status Exam MSE Comments: Is a casually dressed obese white male who appeared his stated age. His hygiene was fair. There was no evidence of any abnormal involuntary motor movements tics or tremors appreciated. There was mild psychomotor retardation. His speech was monotone in quality and normal in volume and normal in rate. His thought process was linear logical and goal-directed. His thought content showed no suicidal or homicidal ideation today. He did not appear to be responding to internal stimuli. There was no evidence of delusional thinking. His mood was endorsed as good. His affect was brighter on discharge. He was alert and oriented to person place and time. His recent and remote memory appeared grossly intact. His insight is limited. His judgment is improved. His impulse control appeared adequate on discharge. His recent and remote memory appeared grossly intact. He was restarted on Abilify and Celexa to target his depression with no adverse side effects. Discharge Data Studies Completed and Pending: Completed Studies During Hospitalization Category Date Time Status CT head wo con* 7 [id number] Stat Cat Scan 11/09/23 03:38 Completed Radiology Impressions Head CT 11/09/23 03:38 IMPRESSION: 1. No evidence of acute intracranial process. 2. Mildly scattered white matter hypodensities. Differential considerations include chronic microvascular ischemic change, demyelinating disease, or gliosis from infectious/inflammatory source. 3. Sinus disease as described. 4. Possible large right nasal polyp. Correlation with direct visualization is recommended. Laboratory Results WBC 4.98 10^3/uL (3.2 9-11.43) 11/09/23 03:42 RBC 4.48 10^6/uL (3.8 5-5.65) 11/09/23 03:42 Hgb 13.40 g/dL (11.27 -16.99) 11/09/23 03:42 Hct 41.5 % (37-53) 11/09/23 03:42 MCV 92.6 fl (82-101) 11/09/23 03:42 MCH 29.9 pg (27-33) 11/09/23 03:42 MCHC 32.3 g/dL (30-55) 11/09/23 03:42 RDW 15.1 % (12.1-15.1 ) 11/09/23 03:42 Plt Count 246 10^3/cmm (157 -399) 11/09/23 03:42 MPV 9.5 fL (7.4-10.4) 11/09/23 03:42 Neut % (Auto) 55.9 % 11/09/23 03:42 Lymph % (Auto) 24.7 % 11/09/23 03:42 [place] % (Auto) 11.4 % 11/09/23 03:42 Eos % (Auto) 6.8 % 11/09/23 03:42 Baso % (Auto) 1.0 % 11/09/23 03:42 Neut # (Auto) 2.78 10^3/uL (1.8 -7.7) 11/09/23 03:42 Lymph # (Auto) 1.2 10^3/uL (0.8- 4.8) 11/09/23 03:42 [place] # (Auto) 0.6 10^3/uL (0.2- 0.9) 11/09/23 03:42 Eos # (Auto) 0.3 10^3/uL (0.0- 0.8) 11/09/23 03:42 Baso # (Auto) 0.1 10^3/uL (0.0- 0.1) 11/09/23 03:42 Nucleated RBC % (a uto) 0 % 11/09/23 03:42 Nucleated RBCs # 0.0 /100WBC 11/09/23 03:42 Sodium 136 mmol/L (136-1 45) 11/09/23 03:42 Potassium 4.1 mmol/L (3.5-5 .1) 11/09/23 03:42 Chloride 102 mmol/L (98-10 7) 11/09/23 03:42 Carbon Dioxide 22 mmol/L (22-29) 11/09/23 03:42 Anion Gap 16.1 (5-19) 11/09/23 03:42 BUN 9 mg/dL (6-20) 11/09/23 03:42 Creatinine 1.0 mg/dL (0.7-1. 2) 11/09/23 03:42 GFR Calculation 77.3 mL/min (90-1 30) L 11/09/23 03:42 Glucose 108 mg/dL (65-115 ) 11/09/23 03:42 POC Glucose 105 mg/dL (70-110 ) 11/09/23 04:02 Calculated Osmolal ity 281 mOsm/kg (285- 295) L 11/09/23 03:42 Calcium 8.4 mg/dL (8.5-10 .5) L 11/09/23 03:42 Total Bilirubin 0.4 mg/dL (0.15-1 .2) 11/09/23 03:42 AST 132 U/L (0-40) H 11/09/23 03:42 ALT 81 U/L (0-41) H 11/09/23 03:42 Alkaline Phosphata se 45 U/L (40-130) 11/09/23 03:42 Total Protein 7.3 g/dL (6.6-8.7 ) 11/09/23 03:42 Albumin 3.8 g/dL (3.5-5.2 ) 11/09/23 03:42 Globulin 3.5 g/dL (1.3-4.6 ) 11/09/23 03:42 Salicylates 0.5 mg/dL (3-10) L 11/09/23 03:42 Urine Opiates Scre en Negative ng/mL (N egative) 11/09/23 05:35 Acetaminophen < 5.0 ug/mL (10-3 0) L 11/09/23 03:42 Ur Barbiturates Sc reen Negative ng/mL (N egative) 11/09/23 05:35 Ur Phencyclidine S crn Negative ng/mL (N egative) 11/09/23 05:35 Ur Amphetamines Sc reen Negative ng/mL (N egative) 11/09/23 05:35 U Benzodiazepines Scrn Negative ng/mL (N egative) 11/09/23 05:35 Urine Cocaine Scre en Negative ng/mL (N egative) 11/09/23 05:35 U Marijuana (THC) Screen Negative ng/mL (N egative) 11/09/23 05:35 Ethyl Alcohol < 10 mg/dL (0-10) 11/09/23 03:42 Vitals: Last Vital Signs Temp 97.5 F L 11/11/23 20:44 Pulse 86 11/12/23 06:00 Resp 18 11/12/23 06:00 BP 137/79 11/12/23 06:00 Pulse Ox 94 11/12/23 06:00 O2 Del Method Room Air 11/11/23 20:44 FiO2 21 11/10/23 20:51 Discharge Plan Discharge Patient Disposition: Home Condition: Stable Prescriptions: New citalopram 20 mg Tablet 40 mg PO DAILY 30 Days Qty: 60 1RF aripiprazole 10 mg Tablet 10 mg PO DAILY Qty: 30 1RF Continued fluticasone propionate [Flonase Allergy Relief] 50 mcg/actuation spray,suspension 1 spray intranasal BID PRN (Reason: nasal congestion) Qty: 16 0RF Rx Instructions: administer into each nostril (DME) Nebulizer machine with mask and tubing See Rx Instructions .Route .MEDSUPPLY Qty: 1 0RF Rx Instructions: As directed every 4-6 hours as needed Trelegy Ellipta 100-62.5-25 mcg blister with device 1 inh inhalation DAILY PRN (Reason: Shortness Of Breath Or Wheezing) omeprazole 20 mg capsule,delayed release(DR/EC) See Rx Instructions .ROUTE .COMPLEX Qty: 90 3RF Dose Instruction: TAKE 1 CAPSULE BY MOUTH EVERY DAY Rx Instructions: TAKE 1 CAPSULE BY MOUTH EVERY DAY -over counter medicaiton. hydrochlorothiazide 25 mg tablet See Rx Instructions .ROUTE .COMPLEX Qty: 90 3RF Dose Instruction: TAKE 1 TABLET BY MOUTH EVERY DAY FOR HIGH BLOOD PRESSURE Rx Instructions: TAKE 1 TABLET BY MOUTH EVERY DAY FOR HIGH BLOOD PRESSURE losartan 100 mg tablet See Rx Instructions .ROUTE .COMPLEX Qty: 90 3RF Dose Instruction: TAKE 1 TABLET BY MOUTH EVERY DAY FOR HIGH BLOOD PRESSURE Rx Instructions: TAKE 1 TABLET BY MOUTH EVERY DAY FOR HIGH BLOOD PRESSURE prednisone 20 mg tablet See Rx Instructions .ROUTE .COMPLEX Qty: 30 0RF Hold Instructions: Doctor's Order Dose Instruction: TAKE 1 TABLET BY MOUTH DAILY NEEDED FOR DYSPNEA Rx Instructions: TAKE 1 TABLET BY MOUTH DAILY NEEDED FOR DYSPNEA metoprolol tartrate 100 mg tablet See Rx Instructions .ROUTE .COMPLEX Qty: 180 3RF Dose Instruction: TAKE 1 TABLET BY MOUTH TWICE A DAY FOR HIGH BLOOD PRESSURE Rx Instructions: TAKE 1 TABLET BY MOUTH TWICE A DAY FOR HIGH BLOOD PRESSURE Paxlovid 300 mg (150 mg x 2)-100 mg tablets,dose pack See Rx Instructions PO .COMPLEX Qty: 30 0RF Rx Instructions: take TWO 150 mg tablets of nirmatrelvir with ONE 100 mg tablet of ritonavir twice daily for 5 days PO albuterol sulfate 90 mcg/actuation Hfa Aerosol Inhaler 2 puff INHALATION Q4H PRN (Reason: Shortness Of Breath) ipratropium-albuterol 0.5 mg-3 mg(2.5 mg base)/3 mL solution for nebulization 3 ml inhalation Q4H PRN (Reason: shortness of breath or wheezing) Qty: 180 0RF Rx Instructions: until breathing returns to target peak flow/parameters doxepin 25 mg Capsule 50 mg PO BEDTIME 30 Days Qty: 60 1RF methylphenidate HCl 10 mg Tablet 10 mg PO 0800,1200,1500 Qty: 90 0RF aripiprazole 10 mg Tablet 10 mg PO DAILY 30 Days Qty: 30 1RF amlodipine 10 mg Tablet 10 mg PO DAILY 30 Days Qty: 30 1RF citalopram 20 mg Tablet 40 mg PO DAILY 30 Days Qty: 60 1RF Discharge Orders: Discharge Order (Routine); Ordered 11/12/23 Ordered By: Brent Wyatt Referrals: [facility] [Outside] - 11/18/23 10:45 am (Follow up for services with Kiko Monreal) Walker Sarabia MD [Primary Care Provider] - Discharge Diet: Usual diet Discharge Activity: Resume usual activity Patient Instructions: Opioid Safety Discharge Attestations NPU Time Spent in Discharge Care*: less than 30 min Status at Discharge: Cognitive status at discharge: cognitively intact, Behavioral status at discharge: cooperative, Coding Level of Care Code Acute Code for [facility] Fwd Diagnoses Major depressive disorder, recurrent episode F33.9 Generalized anxiety disorder F41.1 Suicidal ideation R45.851
== END 2023-11-12 12:53 | disposition home or self-care (01) | DRG 885 ==
LOC: ER 04:43 → NP 07:34
PROVIDERS: Admitting Provider Psychiatry & Neurology Psychiatry; Emergency Provider Emergency Medicine; PCP Family Medicine; Visit Provider Psychiatry & Neurology Psychiatry
DX: F33.9 Major depressive disorder, recurrent, unspecified (principal); R45.851 Suicidal ideations; I10 Essential (primary) hypertension; M35.3 Polymyalgia rheumatica; J45.909 Unspecified asthma, uncomplicated; F41.1 Generalized anxiety disorder; G47.33 Obstructive sleep apnea (adult) (pediatric); K21.9 Gastro-esophageal reflux disease without esophagitis
CPT/HCPCS: 36416; 70450; 80053; 80306; 80307; 82962; 85025; 93005; 94660; 97150; 97165; 99285; J0360; J1200; J2765

== ENCOUNTER 2024-06-19 22:02 | Emergency (ER) | payer OTHER, SELFPAY ==
--- NOTE | 2024-06-19 22:06 | XRR_ITS ---
PROCEDURE INFORMATION: Exam: XR Chest Exam date and time: 06/19/2024 11:28 PM Age: 58 years old Clinical indication: Cough and fever; Patient HX: Fever; SOB; Cough TECHNIQUE: Imaging protocol: Radiologic exam of the chest. Views: 1 view. COMPARISON: CT angio chest PE protcl [id number] 05/02/2022 1:06 PM FINDINGS: Lungs: Unremarkable. No consolidation. Pleural spaces: Unremarkable. No pleural effusion. No pneumothorax. Heart/Mediastinum: Unremarkable. No cardiomegaly. Bones/joints: Unremarkable. XR/XR chest 1V portable [id number] IMPRESSION: No acute findings.
[2024-06-19 22:12] VITALS: BP 178/86; PULSE 87; RESP 20; TEMP 37.7; O2SAT 96; BMI 32.9
[2024-06-19 23:53] LABS: Influenza A NEGATIVE (Negative); Influenza B NEGATIVE (Negative); Respiratory Syncytial Virus Ce NEGATIVE (Negative)
[2024-06-19 23:58] LABS: Covid PCR Positive (Negative)
--- NOTE | 2024-06-20 00:05 | W.ED.URI ---
HPI - URI/Sore Throat General: Chief Complaint: Upper Respiratory Infection Stated Complaint: Fever\Coughing\SOB Time Seen by Provider: 06/20/24 00:05 History of Present Illness: 58-year-old male patient comes in today for illness x 2 days. Patient appears unwell. Patient appears nontoxic. Patient reports body aches, fever, and malaise. Related Data Home Medications Medication Instructions Recorded Confirmed albuterol sulfate 90 mcg/actuation 2 puff inhalation Q4H PRN 01/12/21 03/04/24 aerosol inhaler Shortness Of Breath Previous Rx's Medication Instructions Recorded omeprazole 20 mg capsule,delayed See Rx Instructions .Route 09/02/22 release .COMPLEX #90 caps fluticasone propionate 50 1 spray intranasal BID PRN nasal 10/24/22 mcg/actuation nasal congestion #16 grams spray,suspension (Flonase Allergy Relief) hydrochlorothiazide 25 mg tablet See Rx Instructions .Route 11/11/22 .COMPLEX #90 tabs prednisone 20 mg tablet See Rx Instructions .Route 01/24/23 .COMPLEX #30 tabs ipratropium 0.5 mg-albuterol 3 mg 3 ml inhalation Q4H PRN shortness 04/03/23 (2.5 mg base)/3 mL nebulization of breath or wheezing #180 mL soln Nebulizer machine with mask and #1 ea 04/11/23 tubing amlodipine 10 mg tablet 10 mg PO DAILY 30 days #30 tabs 06/24/23 losartan 100 mg tablet See Rx Instructions .Route 12/04/23 .COMPLEX #90 tabs metoprolol tartrate 100 mg tablet See Rx Instructions .Route 12/04/23 .COMPLEX #180 tabs bupropion HCl 150 mg 24 hr tablet, 150 mg PO QAM #30 tabs 03/04/24 extended release (Wellbutrin XL) citalopram 20 mg tablet 40 mg (2 x 20 mg) PO DAILY 30 days 03/04/24 #60 tabs trazodone 50 mg tablet 50 mg PO DAILY #30 tabs 03/08/24 prednisone 20 mg tablet See Rx Instructions .Route 04/26/24 .COMPLEX #14 tabs sulfamethoxazole 800 1 tab PO BID 7 days #14 tabs 06/14/24 mg-trimethoprim 160 mg tablet (Bactrim DS) Allergies Allergy/AdvReac Type Severity Reaction Status Date / Time No Known Allergies Allergy Verified 06/14/24 12:09 Review of Systems General: Reports: 10 or more systems reviewed and unremarkable except in HPI and below PFSH ED PFSH: Medical History Psychiatric care Hypertension Chest pain Immunization counseling High risk medication use HTN (hypertension) Major depressive disorder Chronic steroid use Polymyalgia rheumatica Asthma Surgical History Hx of cataract surgery 08/26/23, 09/09/23 - Dr Smith History of umbilical hernia repair (01/26/20) H/O esophagogastroduodenoscopy Status post colonoscopy History of nasal surgery H/O knee surgery H/O hand surgery History of appendectomy Family History Father Lung disease Asthma Denies family history of Diabetes Clotting disorder Dementia Chronic kidney disease (CKD) Social History Smoking and tobacco/nicotine status: unknown if used tobacco/nicotine Alcohol intake: never Substance/Drug Use: never Lives independently: Yes Household members: spouse Marital status: Current occupational status: employed Current occupational exposures/hazards: Yes Do you think of yourself as: Straight/Heterosexual Current gender identity: Male Physical Exam Const: COMMON NORMALS: alert HENMT: COMMON NORMALS: normocephalic HEAD & SCALP: normocephalic MOUTH: Normal oral and palatal mucosa present Neck/C-Spine: COMMON NORMALS: full ROM Resp: COMMON NORMALS: normal respiratory effort and clear to auscultation bilaterally EFFORT & INSPECTION: Yes tachypneic AUSCULTATION: clear to auscultation bilaterally Cardio: COMMON NORMALS: regular rate and regular rhythm RATE: regular rate RHYTHM: regular rhythm GI: COMMON NORMALS: Soft to palpation PALPATION: Yes Soft to palpation and No Tenderness to palpation present (GI) Back/Pelvis: COMMON NORMALS: thoracic and lumbar spine normal to inspection Extremity: COMMON NORMALS: full ROM Neuro: SENSORIUM/ORIENTATION: Yes alert Skin: COMMON NORMALS: turgor normal GENERAL SKIN EXAM: turgor normal Course Vital Signs: Vital signs: Vital Signs Temperature 99.9 F H 06/19/24 22:12 Pulse Rate 87 06/19/24 22:12 Respiratory Rate 20 H 06/19/24 22:12 Blood Pressure 178/86 06/19/24 22:12 Pulse Oximetry 96 06/19/24 22:12 Oxygen Delivery Me thod Room Air 06/19/24 22:12 MDM - URI/Sore Throat Medical Decision Making 58-year-old male patient comes in today for complaints of of cough, fever, and shortness of breath x 2 days. On exam patient is alert and oriented. Lungs have good air movement throughout. Vital signs are normal except for some elevated blood pressure. Differential diagnosis includes pneumonia, upper respiratory infection, viral syndrome. Patient tested positive for COVID-19 virus. Chest x-ray noted no obvious infiltration but did have some atelectasis in the left lower lung. Reviewed exam with patient with recommendation for treatment and follow-up. Patient reported understanding agreed to plan. Lab Data Laboratory Results Coronavirus (PCR) Positive (Negative) A 06/19/24 20:18 Influenza A (PCR) Negative (Negative) 06/19/24 20:18 Influenza Type B (PCR) Negative (Negative) 06/19/24 20:18 RSV (PCR) Negative (Negative) 06/19/24 20:18 XR interpretation done by ED provider, pending radiology final review Discharge Plan Discharge Patient Disposition: Home Clinical Impression: COVID Condition: Stable Prescriptions: No Action fluticasone propionate [Flonase Allergy Relief] 50 mcg/actuation spray,suspension 1 spray intranasal BID PRN (Reason: nasal congestion) Qty: 16 0RF Rx Instructions: administer into each nostril (DME) Nebulizer machine with mask and tubing See Rx Instructions .Route .MEDSUPPLY Qty: 1 0RF Rx Instructions: As directed every 4-6 hours as needed citalopram 20 mg tablet 40 mg PO DAILY 30 Days Qty: 60 1RF bupropion HCl [Wellbutrin XL] 150 mg tablet extended release 24 hr 150 mg PO QAM Qty: 30 1RF prednisone 20 mg tablet See Rx Instructions .Route .COMPLEX Qty: 14 0RF Rx Instructions: 2 tabs PO daily for 4 days, then 1 tab PO daily X 4 days, then 0.5 tab daily for 4 days, then stop; sulfamethoxazole-trimethoprim [Bactrim DS] 800-160 mg tablet 1 tab PO BID 7 Days Qty: 14 0RF omeprazole 20 mg capsule,delayed release(DR/EC) See Rx Instructions .ROUTE .COMPLEX Qty: 90 3RF Dose Instruction: TAKE 1 CAPSULE BY MOUTH EVERY DAY Rx Instructions: TAKE 1 CAPSULE BY MOUTH EVERY DAY -over counter medicaiton. hydrochlorothiazide 25 mg tablet See Rx Instructions .ROUTE .COMPLEX Qty: 90 3RF Dose Instruction: TAKE 1 TABLET BY MOUTH EVERY DAY FOR HIGH BLOOD PRESSURE Rx Instructions: TAKE 1 TABLET BY MOUTH EVERY DAY FOR HIGH BLOOD PRESSURE prednisone 20 mg tablet See Rx Instructions .ROUTE .COMPLEX Qty: 30 0RF Hold Instructions: Doctor's Order Dose Instruction: TAKE 1 TABLET BY MOUTH DAILY NEEDED FOR DYSPNEA Rx Instructions: TAKE 1 TABLET BY MOUTH DAILY NEEDED FOR DYSPNEA losartan 100 mg tablet See Rx Instructions .ROUTE .COMPLEX Qty: 90 3RF Dose Instruction: TAKE 1 TABLET BY MOUTH EVERY DAY FOR HIGH BLOOD PRESSURE Rx Instructions: TAKE 1 TABLET BY MOUTH EVERY DAY FOR HIGH BLOOD PRESSURE metoprolol tartrate 100 mg tablet See Rx Instructions .ROUTE .COMPLEX Qty: 180 3RF Dose Instruction: TAKE 1 TABLET BY MOUTH TWICE A DAY FOR HIGH BLOOD PRESSURE Rx Instructions: TAKE 1 TABLET BY MOUTH TWICE A DAY FOR HIGH BLOOD PRESSURE trazodone 50 mg tablet 50 mg PO DAILY Qty: 30 2RF albuterol sulfate 90 mcg/actuation Hfa Aerosol Inhaler 2 puff INHALATION Q4H PRN (Reason: Shortness Of Breath) ipratropium-albuterol 0.5 mg-3 mg(2.5 mg base)/3 mL solution for nebulization 3 ml inhalation Q4H PRN (Reason: shortness of breath or wheezing) Qty: 180 0RF Rx Instructions: until breathing returns to target peak flow/parameters amlodipine 10 mg Tablet 10 mg PO DAILY 30 Days Qty: 30 1RF Discharge Orders: Discharge ED (Routine); Ordered 06/20/24 Ordered By: Toan Kelly Referrals: Walker Sarabia MD [Primary Care Provider] - Discharge Diet: Usual diet Discharge Activity: Increase activity as tolerated Patient Instructions: Upper Respiratory Infection (ED) Activity Restrictions/Additional Instructions: Make sure to stay well-hydrated. Drink plenty of water and fluids. Use acetaminophen and ibuprofen for pain and fever. Follow-up with primary care as needed. Stand Alone Forms: Work/School Release Coding Level of Care Code ED Melt House Centrifugal Operator for Salvador Obregon
[2024-06-20 01:45] VITALS: BP 155/96; PULSE 72; RESP 16; O2SAT 98
== END 2024-06-20 00:30 | disposition home or self-care (01) ==
PROVIDERS: Emergency Provider Nurse Practitioner Family; PCP Family Medicine
DX: U07.1 COVID-19 (principal); I10 Essential (primary) hypertension
CPT/HCPCS: 0241U; 71045; 99284

== ENCOUNTER 2024-11-02 21:09 | Observation (INO) | payer OTHER, SELFPAY ==
[2024-11-02] VITALS (16 sets, daily range): BP systolic 114–167; BP diastolic 64–83; PULSE 62–70; RESP 15–26; TEMP 36.6; O2SAT 94–99; BMI 33.5
--- NOTE | 2024-11-02 22:08 | XRR_ITS ---
PROCEDURE INFORMATION: Exam: XR Chest Exam date and time: 11/02/2024 10:10 PM Age: 59 years old Clinical indication: Pain; Chest pressure; Additional info: Chest pain TECHNIQUE: Imaging protocol: Radiologic exam of the chest. Views: 1 view. COMPARISON: CR XR chest 1V portable [id number] 06/19/2024 11:28 PM FINDINGS: Lungs: Calcified granulomas noted in the left lung. No consolidation. Pleural spaces: Unremarkable. No pleural effusion. No pneumothorax. Heart/Mediastinum: Unremarkable. No cardiomegaly. Bones/joints: Unremarkable. XR/XR chest 1V portable [id number] IMPRESSION: No acute findings.
--- NOTE | 2024-11-02 22:08 | ECG_ITS ---
[facility] Test Date: 2024-11-02 Pat Name: Madi Lowe Department: Room: Gender: Male Metropolitan Editor: : 1965 Requested By: Shikha Phillip Order Number: [id number] Mason MD: Manjit Aelxis M.D. Measurements Intervals [place] Rate: 68 P: 44 [place]: 197 QRS: 49 QRSD: 102 T: 14 QT: 430 QTc: 457 Interpretive Statements SINUS RHYTHM POSSIBLE RIGHT VENTRICULAR CONDUCTION DELAY [RSR (QR) IN V1/V2] Compared to ECG 11/09/2023 04:05:37 No significant changes Electronically Signed On 11-03-2024 17:22:02 CUSTOMER SERVICE SUPERVISOR by Manjit Alexis M.D. [email or web address]
--- NOTE | 2024-11-02 22:12 | ED_ITS ---
HPI - Chest Pain 2 General: Chief Complaint: Chest Pain Stated Complaint: Chest Pains Time Seen by Provider: 11/02/24 22:08 History of Present Illness: 59-year-old man with a history of hypert ension who presents to the emergency room with left-sided chest pain that radiates into his jaw and his left arm. This is been having intermediately. At rest. He said it started tonight when he was laying in bed. No anticoagulation. He tells me he does not have a cardiac history although he had told nursing earlier that he did have a partial blockage in the past. No cough. No nausea or vomiting. Related Data Home Medications ?Medication ?Instructions ?Recorded ?Confirmed albuterol sulfate 90 mcg/actuation 2 puff inhalation Q 4H PRN 01/12/21 03/04/24 aerosol inhaler Shortness Of Breath Previous Rx's ?Medication ?Instructions ?Recorded omeprazole 20 mg capsule,delayed See Rx Instructions . Route 09/02/22 release .COMPLEX #90 caps fluticasone propionate 50 1 spray intranasal BID PRN n tatiana 10/24/22 mcg/actuation nasal congestion #16 grams spray,suspension (Flonase Allergy Relief) hydrochlorothiazide 25 mg tablet See Rx Instructions . Route 11/11/22 .COMPLEX #90 tabs ipratropium 0.5 mg-albuterol 3 mg 3 ml inhalation Q4H PRN shortness 04/03/23 (2.5 mg base)/3 mL nebulization of breath or wheezing #180 mL soln Nebulizer machine with mask and #1 ea 04/11/23 tubing citalopram 20 mg tablet 40 mg (2 x 20 mg) PO DAILY 3 0 days 03/04/24 #60 tabs trazodone 50 mg tablet 50 mg PO DAILY #30 tabs 02/20 04/14 losartan 100 mg tablet See Rx Instructions .Route 1 .COMPLEX #90 tabs metoprolol tartrate 100 mg tablet See Rx Instructions .Route 07/21/24 .COMPLEX #180 tabs amlodipine 2.5 mg tablet 2.5 mg PO DAILY #30 tabs 12/13 bupropion HCl 150 mg 24 hr tablet, 150 mg PO QAM #30 t abs 08/24/24 extended release (Wellbutrin XL) Allergies Allergy/AdvReac Type Severity Reaction Status Date / Time No Known Allergies Allergy Verified 11/02/24 21:15 Review of Systems 2 Narrative: Constitutional symptoms: Negative except as documented in HPI. Skin symptoms: Negative except as documented in HPI. Eye symptoms: Negative except as documented in HPI. ENMT symptoms: Negative except as documented in HPI. Respiratory symptoms: Negative except as documented in HPI. Cardiovascular symptoms: Negative except as documented in HPI. Gastrointestinal symptoms: Negative except as documented in HPI. Genitourinary symptoms: Negative except as documented in HPI. Musculoskeletal symptoms: Negative except as documented in HPI. Neurologic symptoms: Negative except as documented in HPI. Psychiatric symptoms: Negative except as documented in HPI. Endocrine symptoms: Negative except as documented in HPI. PFSH ED 2 PFSH: Medical History Psychiatric care Hypertension Chest pain Immunization counseling High risk medication use HTN (hypertension) Major depressive disorder Chronic steroid use Polymyalgia rheumatica Asthma Surgical History Hx of cataract surgery 08/26/23, 09/09/23 - Dr Smith History of umbilical hernia repair (01/26/20) H/O esophagogastroduodenoscopy Status post colonoscopy History of nasal surgery H/O knee surgery H/O hand surgery History of appendectomy Family History Father Lung disease Asthma Denies family history of Diabetes Clotting disorder Dementia Chronic kidney disease (CKD) Social History Smoking and tobacco/nicotine status: never used tobacco/nicotine Alcohol intake: never Substance/Drug Use: never Lives independently: Yes Household members: spouse Marital status: Current occupational status: employed Current occupational exposures/hazards: Yes Do you think of yourself as: Straight/Heterosexual Current gender identity: Male Physical Exam 2 Narrative: EXAM NARRATIVE: General: Alert, no acute distress. Skin: Warm, dry. Head: Normocephalic, atraumatic. Neck: Supple, trachea midline. Eye: Extraocular movements are intact. Ears, nose, mouth and throat: mucosa moist. Cardiovascular: Regular, Normal peripheral perfusion. Respiratory: Lungs are clear to auscultation, respirations are non-labored, breath sounds are equal, Symmetrical chest wall expansion. Gastrointestinal: Soft, Nontender, Non distended Musculoskeletal: Normal ROM, no deformity. Neurological: Alert and oriented, No focal neurological deficit observed. Psychiatric: Cooperative, appropriate mood & affect. Course 2 Vital Signs: Vital signs: Vital Signs Temperature 97.9 F 11/02/24 21:10 Pulse Rate 137 H 11/03/24 00:30 Respiratory Rate 14 11/03/24 00:15 Blood Pressure 137/77 11/03/24 00:30 Pulse Oximetry 97 11/03/24 00:30 Oxygen Delivery Me thod Room Air 11/02/24 21:10 MDM - Chest Pain Medical Decision Making Differential diagnosis for patient with chest pain includes but is not limited to and based on the above HPI, review of systems and physical exam: Pneumonia. unstable angina. angina. Acute coronary syndrome / [place]. Pulmonary embolism. Costochondritis / musculoskeletal. Pleurisy. Pericarditis. Esophageal spasm. Pancreatis. Cholecystitis. Orders placed to evaluate differential diagnosis based on the above differential, HPI and physical exam EKG: Time 2113. Rate 68. Normal sinus rhythm, some nonspecific ST depression., no ectopy, normal MN & QRS intervals, This was reviewed and interpreted by myself the ER physician at 2117 Lab Review: Laboratory results were reviewed and interpreted by myself the emergency room physician. No leukocytosis. Hemoglobin is a little low at 10.8. BUN and creatinine are normal at 9 and 1.1. Glucose is slightly elevated at 207. Initial troponin is 20. Repeat troponin is 20 as well. No delta. Chest x-ray: No acute process. No infiltrate. No pneumothorax. This was reviewed and interpreted by myself the emergency room physician. I also reviewed the radiology report. I reviewed the patient's medical record. HEART Pathway for Early Discharge in Acute Chest Pain from [email or web address] on 11/03/2024 All calculations should be rechecked by clinician prior to use RESULT SUMMARY: 5 points HEART Pathway Score High risk 12-65% 30-day MACE Cardiology consultation and admission recommended. Further testing indicated. INPUTS: History ?> 1 = Moderately suspicious EKG ?> 1 = Non-specific repolarization disturbance Age ?> 1 = 45-64 Risk factors ?> 1 = 1-2 risk factors Initial troponin ?> 1 = 1-3x normal limit Reexamination: Patient says second nitro relieved the pain. He did ask for some Ativan as well. He does have a history of anxiety. He also reports a history of having a partial coronary obstruction/what sounds like nonobstructive coronary disease in the past. Does not appear that this was done here. Consultation: I spoke with Dr. London who is on-call for hospitalist service who agrees to admission to observation. Patient has a heart score of 5 and is thus high risk. Recommended observation. Assessment and plan: Chest pain -I discussed the patient with the hospitalist on-call who is admitting the patient. - Discussed findings and plan with patient. Answered any questions. - All laboratory values were reviewed and interpreted personally by myself, the ER physician - All imaging was reviewed and interpreted personally by myself, the ER physician. - Evaluation and treatment of this problem were appropriate in the emergency setting Lab Data 11/02/24 22:26 11/02/24 22: Radiology Impressions Chest X-Ray 11/02/24 22:08 IMPRESSION: No acute findings. Laboratory Results WBC 6.53 10^3/uL (3.29-11.43) 11/02/24: RBC 3.69 10^6/uL (3.85-5.65) L 11/02/24 22: Hgb 10.80 g/dL (11.27-16.99) L 11/02/24: Hct 33.8 % (37-53) L 11/02/24: MCV 91.6 fl (82-101) 11/02/24 22: MCH 29.3 pg (27-33) 11/02/24: MCHC 32.0 g/dL (30-55) 11/02/24: RDW 16.8 % (12.1-15.1) H 11/02/24: Plt Count 201 10^3/cmm (157-399) 11/02/24: MPV 9.7 fL (7.4-10.4) 11/02/24 22: Neut % (Auto) 68.7 % 11/02/24: Lymph % (Auto) 19.1 % 11/02/24: [place] % (Auto) 8.4 % 11/02/24: Eos % (Auto) 2.9 % 11/02/24: Baso % (Auto) 0.6 % 11/02/24 22: Neut # (Auto) 4.48 10^3/uL (1.8-7.7) 11/02/24: Lymph # (Auto) 1.3 10^3/uL (0.8-4.8) 11/02/24 22: [place] # (Auto) 0.6 10^3/uL (0.2-0.9) 11/02/24: Eos # (Auto) 0.2 10^3/uL (0.0-0.8) 11/02/24: Baso # (Auto) 0.0 10^3/uL (0.0-0.1) 11/02/24: Nucleated RBC % (auto) 0 % 11/02/24: Nucleated RBCs # 0.0 /100WBC 11/02/24 22: Sodium 134 mmol/L (136-145) L 11/02/24 22: Potassium 3.9 mmol/L (3.5-5.1) 11/02/24 22: Chloride 100 mmol/L (98-107) 11/02/24 22: Carbon Dioxide 23 mmol/L (22-29) 11/02/24 22: Anion Gap 14.9 (5-19) 11/02/24: BUN 9 mg/dL (6-20) 11/02/24: Creatinine 1.1 mg/dL (0.7-1.2) 11/02/24: GFR Calculation 69.0 mL/min (90-130) L 11/02/24 22: Glucose 207 mg/dL (65-115) H 11/02/24 22: Calculated Osmolality 283 mOsm/kg (285-295) L 11/02/24: Calcium 8.9 mg/dL (8.5-10.5) 11/02/24: Total Bilirubin 0.7 mg/dL (0.15-1.2) 11/02/24 22: AST 83 U/L (0-40) H 11/02/24 22: ALT 35 U/L (0-41) 11/02/24 22: Alkaline Phosphatase 74 U/L (40-130) 11/02/24 22:26 Troponin T Baseline 20 ng/L (0-15) H 11/02/24 22:26 Troponin T 120 Minute 20.62 ng/L (0-15) H 11/02/24 23:47 Delta Troponin T 0.62 ABS# (0-10) 11/02/24 23:47 NT-Pro-B Natriuret Pep 380 pg/mL (0-125) H 11/02/24 22:26 Total Protein 7.6 g/dL (6.6-8.7) 11/02/24 22:26 Albumin 3.5 g/dL (3.5-5.2) 11/02/24 22:26 Globulin 4.1 g/dL (1.3-4.6) 11/02/24 22:26 All radiology interpretation(s) finalized by discharge Clincial Decision Support The following clinical decision support tools were used to aid in care of the patient HEART Score -> History: Moderately Suspicious, EKG: Non-specific Changes, Age: 45-64 yrs, Risk Factors: 1 or 2 Risk Factors, Troponin: Baseline Trop 16-45 ng/L. Resulting HEART Score: 5. Discharge Plan Discharge Patient Disposition: Placed in Observation Clinical Impression: Chest pain Coding Level of Care Code ED Die Baker for Salvador Obregon
[2024-11-02] MEDS: aspirin 81 mg Chew Tablet 324 MG PO (22:19)
[2024-11-02] MEDS: nitroglycerin 0.4 mg sublingual Tablet SUBLINGUAL (22:21)
[2024-11-02 22:30] LABS: Basophils % 0.6 %; Eosinophils # 0.2 10^3/uL (0.0-0.8); Eosinophils % 2.9 %; Hematocrit 33.8 % (37-53); Lymphocytes # 1.3 10^3/uL (0.8-4.8); Lymphocytes % 19.1 %; Mean Corpuscular Hemoglobin 29.3 pg (27-33); Mean Corpuscular Volume 91.6 fl (82-101); Mean Platelet Volume 9.7 fL (7.4-10.4); Monocytes # 0.6 10^3/uL (0.2-0.9); Monocytes % 8.4 %; Neutrophils # 4.48 10^3/uL (1.8-7.7); Neutrophils % 68.7 %; Nucleated Red Blood Cells % 0 %; Platelet Count 201 10^3/cmm (157-399); Red Blood Count 3.69 10^6/uL (3.85-5.65); Red Cell Distribution Width 16.8 % (12.1-15.1); White Blood Count 6.53 10^3/uL (3.29-11.43)
[2024-11-02 22:54] LABS: Troponin(5th) Baseline 20 ng/L (0-15)
[2024-11-02 23:01] LABS: Alanine Aminotransferase 35 U/L (0-41); Albumin Level 3.5 g/dL (3.5-5.2); Alkaline Phosphatase 74 U/L (40-130); Anion Gap 14.9 (5-19); Aspartate Amino Transferase 83 U/L (0-40); Blood Urea Nitrogen 9 mg/dL (6-20); Calcium 8.9 mg/dL (8.5-10.5); Carbon Dioxide 23 mmol/L (22-29); Chloride 100 mmol/L (98-107); Creatinine Clr Calc Pharmacy 87.6174; Globulin 4.1 g/dL (1.3-4.6); Glucose 207 mg/dL (65-115); NT Pro B Type Natriuretic Pept 380 pg/mL (0-125); Osmolality Calculated 283 mOsm/kg (285-295); Potassium 3.9 mmol/L (3.5-5.1); Sodium 134 mmol/L (136-145); Total Bilirubin 0.7 mg/dL (0.15-1.2); Total Protein 7.6 g/dL (6.6-8.7)
[2024-11-02] MEDS: LORazepam 2 mg/mL INJ 1 mL 1 MG IVP (23:08)
[2024-11-03] VITALS (24 sets, daily range): BP systolic 124–151; BP diastolic 69–96; PULSE 65–137; RESP 13–26; TEMP 36.7–37; O2SAT 94–98
--- NOTE | 2024-11-03 00:08 | ECG_ITS ---
[facility] Date: 2024-11-02 Pat Name: Madi Lowe Department: Room: EDIP Gender: Male Family Physician: : 1965 Requested By: Shikha Phillip Order Number: [id number] Marlon MD: Manjit Alexis M.D. Measurements Intervals [place] Rate: 68 P: 12 [place]: 195 QRS: 11 QRSD: 102 T: 83 QT: 411 QTc: 439 Interpretive Statements SINUS RHYTHM POSSIBLE LEFT ATRIAL ENLARGEMENT [-0.1mV P-WAVE IN V1/V2] POSSIBLE RIGHT VENTRICULAR CONDUCTION DELAY [RSR (QR) IN V1/V2] MODERATE ST DEPRESSION [0.05+ mV ST DEPRESSION] Compared to ECG 11/09/2023 04:05:37 ST (T wave) deviation now present Electronically Signed On 11-03-2024 18:03:33 GROUND CONTROL APPROACH TECHNICIAN by Manjit Alexis M.D. [id number]
[2024-11-03 00:19] LABS: Troponin 5 2HR 20.62 ng/L (0-15); Troponin 5 2HR Delta 0.62 ABS# (0-10)
--- NOTE | 2024-11-03 00:52 | P.HP_ITS ---
Providers/Chief Complaint 2 Primary Care Provider: Walker Sarabia MD Chief Complaint: Chest Pains History of Present Illness Madi Lowe is a 59 year old male with past medical history significant for generalized anxiety disorder, hypertension, polymyalgia rheumatica, asthma, multiple other comorbidities who presents emergency department with left-sided chest pain. Patient reports symptoms been present for 2 months. He reports symptoms are severe at times. Reports radiation to jaw. Exertion at times will make symptoms worse. Rest usually improves. Did note symptoms occurred at rest this past evening. He denies any known history of heart disease. Reports a stress test several years ago which was just mildly abnormal. Review of Systems 2 Narrative: A complete review of systems was obtained and is negative except as stated in HPI. Medications/Allergies Home Medications ?Medication ?Instructions ?Recorded ?Confirmed ?Last Taken ?Type albuterol sulfate 90 mcg/actuation 2 puff inhalation Q 4H PRN 01/12/21 03/04/24 11/09/23 History aerosol inhaler Shortness Of Breath 90 mcg omeprazole 20 mg capsule,delayed See Rx Instructions . Route 09/02/22 08/24/24 11/09/23 Rx release .COMPLEX #90 caps fluticasone propionate 50 1 spray intranasal BID PRN n tatiana 10/24/22 03/04/24 11/09/23 Rx mcg/actuation nasal congestion #16 grams spray,suspension (Flonase Allergy Relief) hydrochlorothiazide 25 mg tablet See Rx Instructions . Route 11/11/22 08/24/24 11/09/23 Rx .COMPLEX #90 tabs ipratropium 0.5 mg-albuterol 3 mg 3 ml inhalation Q4H PRN shortness 04/03/23 03/04/24 11/09/23 Rx (2.5 mg base)/3 mL nebulization of breath or wheezing #180 mL soln Nebulizer machine with mask and #1 ea 04/11/23 4 Unknown Rx tubing citalopram 20 mg tablet 40 mg (2 x 20 mg) PO DAILY 3 0 days 03/04/24 08/24/24 Unknown Rx #60 tabs trazodone 50 mg tablet 50 mg PO DAILY #30 tabs 02/20 04/14 Unknown Rx losartan 100 mg tablet See Rx Instructions .Route 1 08/24/24 Unknown Rx .COMPLEX #90 tabs metoprolol tartrate 100 mg tablet See Rx Instructions .Route 07/21/24 08/24/24 Unknown Rx .COMPLEX #180 tabs amlodipine 2.5 mg tablet 2.5 mg PO DAILY #30 tabs 12/1308/24/24 Unknown Rx bupropion HCl 150 mg 24 hr tablet, 150 mg PO QAM #30 t abs 08/24/24 08/24/24 Unknown Rx extended release (Wellbutrin XL) Allergies Allergy/AdvReac Type Severity Reaction Status Date / Time No Known Allergies Allergy Verified 11/02/24 21:15 PFSH Acute 2 PFSH: Medical History Psychiatric care Hypertension Chest pain Immunization counseling High risk medication use HTN (hypertension) Major depressive disorder Chronic steroid use Polymyalgia rheumatica Asthma Surgical History Hx of cataract surgery 08/26/23, 09/09/23 - Dr Smith History of umbilical hernia repair (01/26/20) H/O esophagogastroduodenoscopy Status post colonoscopy History of nasal surgery H/O knee surgery H/O hand surgery History of appendectomy Family History Father Lung disease Asthma Denies family history of Diabetes Clotting disorder Dementia Chronic kidney disease (CKD) Social History Smoking and tobacco/nicotine status: never used tobacco/nicotine Alcohol intake: never Substance/Drug Use: never Lives independently: Yes Household members: spouse Marital status: Current occupational status: employed Current occupational exposures/hazards: Yes Do you think of yourself as: Straight/Heterosexual Current gender identity: Male Vitals/I&O/Wt Last Vital Signs Temp 97.9 F 11/02/24 21:10 Pulse 137 H 11/03/24 00:30 Resp 14 11/03/24 00:15 BP 137/77 11/03/24 00:30 Pulse Ox 97 11/03/24 00:30 O2 Del Method Room Air 11/02/24 21:10 11/02/24 11/02/24 11/03/24 14:59 22:59 06:59 Intake Total 0 / 0 Balance 0 / 0 Weight last 48 hrs Weight 102.965 kg Physical Exam 2 Narrative: General: Patient is awake and alert. Head: Normocephalic. Atraumatic. EOM intact. Neck: No JVD. Cardiovascular: RRR. No gallops. No murmurs. No peripheral edema. Lungs: Clear to auscultation, no use of accessory muscles, no crackles or wheezes. Skin: No jaundice. No rashes. Abdomen: Normal bowel sounds, abdomen soft and nontender. Genito Urinary: Genital exam not performed since complaints not related. Rectal: Rectal exam not performed since no symptoms indicated blood loss. Extremities: No cyanosis or clubbing. Musculoskeletal: 5/5 strength, normal range of motion, no swollen or erythematous joints. Neurological: Moves all 4 extremities. No myoclonus. Data 11/02/24 22:26 11/02/24 22:26 A&P Assessment and plan (1) Chest pain: Chest pain without history of heart disease Troponin curve flat Continuous telemetry monitoring Stress test ordered Echo ordered (2) GERD (gastroesophageal reflux disease): Continue PPI (3) Hypertension: Continue Norvasc, HCTZ, metoprolol and losartan (4) Asthma: Not in exacerbation Breathing treatments as needed (5) Generalized anxiety disorder: Continue Celexa Continue bupropion Plan DVT prophylaxis: Lovenox PDMP PDMP Reviewed: Not Reviewed Attestations 2 Medical Necessity Statement*: Patient presents with chest pain with expected hospitalization not to cross 2 midnights for stress testing, echo and telemetry. Coding Level of Care Code Acute Code for [facility] Diagnoses Chest pain R07.9 GERD (gastroesophageal reflux disease) K21.9 Hypertension I10 Asthma J45.909 Generalized anxiety disorder F41.1
--- NOTE | 2024-11-03 00:55 | PC.NURSE ---
THIS NURSE SYNC VITALS FROM MONITOR, PATIENT LEADS WERE NOT READING CORRECTLY AND HR OF 137 WAS RECORDED. PT DID NOT HAVE A HR OF 137, PT HR AT TIME WAS 68. UNABLE TO EDIT SET OF VITALS.
--- NOTE | 2024-11-03 01:06 | USCV_ITS ---
Madi Lowe Age: 59 Gender: M : 1965 Exam Date: 11/03/2024 01:45 Ordering Phys: Walker London MD Technologist: EMILY Exam Location: [facility] [place] Indication: chest pain, history of HTN, asthma BP: 145 / 79 HR: 64 Rhythm: Sinus Technical Quality: Adequate MEASUREMENTS (Male / Female) Normal Values 2D ECHO LV Diastolic Diameter PLAX 4.3 cm 4.2 - 5.9 / 3.9 - 5.3 cm IVS Diastolic Thickness 1.8 cm 0.6 - 1.0 / 0.6 - 0.9 cm IVS Systolic Thickness 2.4 cm LVPW Diastolic Thickness 2.0 cm 0.6 - 1.0 / 0.6 - 0.9 cm LVPW Systolic Thickness 2.0 cm LVOT Diameter 2.5 cm LV Ejection Fraction 2D Teich 60.8 % LV Ejection Fraction MOD 4C 65.3 % LV Ejection Fraction MOD 2C 72.1 % LV Ejection Fraction 2C AL 75.0 % LA Diameter 3.2 cm Aorta at Sinotubular Diameter 3.8 cm IVC Diameter 1.4 cm M-MODE LA Ao Ratio MM 1.3 AV Cusp Separation MM 2.1 cm DOPPLER AV Peak Velocity 124.0 cm/s LVOT Peak Velocity 112.0 cm/s AV Area Cont Eq vti 4.7 cm squared AV Area Cont Eq pk 4.3 cm squared MV Area PHT 3.2 cm squared Mitral E to A Ratio 1.1 TR Peak Velocity 230.0 cm/s TR Peak Gradient 21.2 mmHg TV Peak E Velocity 52.0 cm/s PV Peak Velocity 98.0 cm/s FINDINGS Left Ventricle Normal left ventricular size and systolic function, EF 65%.no regional wall motion abnormalities. Moderate left ventricular hypertrophy. Grade I/IV diastolic dysfunction (abnormal relaxation filling pattern), normal to mildly elevated filling pressures. Right Ventricle The right ventricle is normal in size and function. Right Atrium The right atrium is normal in size. Left Atrium Mildly increased left atrial size. Mitral Valve No gross abnormalities noted Aortic Valve No gross abnormalities noted Tricuspid Valve Trace tricuspid valve regurgitation. Pulmonic Valve Pulmonic valve not well visualized. Pericardium Normal pericardium without effusion. Aorta Normal ascending aorta dimension. IVC Normal inferior vena cava. CONCLUSIONS Normal left ventricular size and systolic function, EF 65%.no regional wall motion abnormalities. Moderate left ventricular hypertrophy. Grade I/IV diastolic dysfunction (abnormal relaxation filling pattern), normal to mildly elevated filling pressures. Mildly increased left atrial size. Trace tricuspid valve regurgitation. Estimated pulmonary artery peak systolic pressure could not be obtained due to poor Doppler signals There is no pericardial effusion. There are no intracardiac masses. Compared to the previous study from 10/18/2019, there may not be a significant change Dr Manjit Alexis MD [facility] (Electronically Signed) Final Date: 04 November 2024 09:57 S
--- NOTE | 2024-11-03 01:08 | NMCV_ITS ---
NM suzanne perf SPECT r/s* [id number] Madi Lowe Age: 59 Gender: M : 1965 Exam Date: 11/03/2024 06:21 Ordering Phys: Walker London MD Technologist: KIM Phillips Exam Location: [facility] Indications: CP STRESS TEST Please see separate stress test report in [facility] for full findings IMAGE PROTOCOL Rest/Stress 1 Lexiscan Day Radiopharmaceutical Dose (mCi) Administration Site Administered by Rest: Tc-99m 10.5 IV Elizabeth Hines, ARTS ADMINISTRATOR Sestamibi Stress:Tc-99m 32.9 IV Elizabeth Huynhgle, ARTS ADMINISTRATOR Sestamibi Rest: 03-Nov-2024 60 Discovery 630 Stress: 03-Nov-2024 30 Discovery 630 0.4mg Lexiscan. Supine position only as patient was unable to lay prone. SPECT RESULTS Technical Quality: Good Raw Data Analysis: Normal Image Corrections: No attenuation or motion correction applied Summed Stress Score: 3 Summed Rest Score: 3 Summed Difference Score: 1 PERFUSION FINDINGS Small to moderate area of minimal to moderately decreased tracer uptake involving the basal and mid inferior wall segment. Slight reversibility was noted in the mid inferior region. FUNCTIONAL RESULTS (calculated via Gated SPECT) Stress Image LV EF (%): 68 Stress EDV (mL):157 TID: 0.9 Stress ESV (mL):51 FUNCTIONAL FINDINGS: Segmental wall motion analysis revealing no gross wall motion abnormalities. IMPRESSIONS 1. Myocardial perfusion imaging revealing small to moderate area of minimal to moderately decreased tracer uptake involving the basal and mid inferior region, with a slight reversibility, suggestive of myocardial scarring in the distribution of the right coronary artery with minimal yadira-infarct ischemia. (Summed difference score of 1) 2. Normal LV ejection fraction of 60%. 3. LV wall motion analysis revealing no gross wall motion abnormalities.. 4. Mildly dilated LV cavity. Compared to the study from 09/10/2019, the ischemia appears to be new Dr Manjit Alexis MD [facility] (Electronically Signed) Final Date: 03 November 2024 13:45 S
[2024-11-03] MEDS: enoxaparin 40 mg/0.4 mL Syringe SUBCUT (01:35)
[2024-11-03 01:51] LABS: Chol HDL Ratio 12.05 mg/dL (1.0-5.00); Cholesterol 241 mg/dL (0-200); HDL Cholesterol 20 mg/dL (60-100); LDL Cholesterol Calculated 185 mg/dL (50-129); LDL HDL Ratio 9.25 RATIO (0.00-3.22); Triglycerides 182 mg/dL (0-150)
[2024-11-03 02:24] LABS: Estmated Average Glucose 148; Hemoglobin A1C 6.8 % (4.0-6.0)
[2024-11-03 03:49] LABS: Troponin 5 6HR 38.78 ng/L (0-15)
[2024-11-03 04:00] LABS: Troponin 5 6HR Delta 18.78 ng/L (0-12)
--- NOTE | 2024-11-03 04:03 | PC.NURSE ---
PT 6 HR TROP DELTA 18.78. NOTIFIED ABOUT CRITICAL LAB. NEW ORDER FOR 60MG LOVENOX ONCE.
[2024-11-03] MEDS: enoxaparin 100 mg/mL Syringe 60 MG SUBCUT (04:10)
--- NOTE | 2024-11-03 05:41 | ECG_ITS ---
[employer] Test Date: 2024-11-03 Pat Name: Madi Lowe Department: Room: EDIP Gender: Male Nurses Superintendent: : 1965 Requested By: Shikha Phillip Order Number: [id number] Mason MD: Manjit Alexis M.D. Measurements Intervals Gause Rate: 63 P: 21 NC: 205 QRS: 4 QRSD: 94 T: 66 QT: 433 QTc: 444 Interpretive Statements SINUS RHYTHM NONSPECIFIC T-WAVE ABNORMALITY Compared to ECG 11/02/2024 23:47:12 T-wave abnormality now present Electronically Signed On 11-03-2024 18:03:37 DRY CLEANING SUPERVISOR by Manjit Alexis M.D. [email or web address]
[2024-11-03] MEDS: regadenoson 0.4 Mg/5 ml Syringe IVP (07:04)
--- NOTE | 2024-11-03 08:06 | PC.NURSE ---
Patient came from [facility] test to [facility] via a wheelchair at 0755. Patient was an ED transfer.
[2024-11-03] MEDS: buPROPion XL (24 HR) 150 mg Tablet PO (09:04)
[2024-11-03] MEDS: amlodipine 5 mg Tablet 2.5 MG PO (09:04)
[2024-11-03] MEDS: metoprolol tartrate 50 mg Tablet 100 MG PO ×2 (09:05→20:46)
[2024-11-03] MEDS: pantoprazole DR 40 mg Tablet PO (09:05)
[2024-11-03] MEDS: losartan 50 mg Tablet 100 MG PO (09:05)
[2024-11-03] MEDS: citalopram 20 mg Tablet 40 MG PO (09:05)
[2024-11-03] MEDS: hydroCHLOROthiazide 25 mg Tablet PO (09:05)
[2024-11-03] MEDS: acetaminophen 325 mg Tablet 650 MG PO (10:18)
[2024-11-03] MEDS: aspirin 81 mg EC Tablet PO (10:18)
--- NOTE | 2024-11-03 10:35 | PC.NURSE ---
Provider is updated that Mr Lowe, He is getting anxious and asking for something for his nerves. They gave him a one time dose of ativan 1 mg in the ED Provider answered back: Yes can eat, ok can order some xanax for him. Xanax 0.5mg TID PRN is confirmed and ordered.
[2024-11-03] MEDS: ALPRAZolam 0.5 mg Tablet PO (10:53)
--- NOTE | 2024-11-03 13:37 | CTR_ITS ---
PROCEDURE INFORMATION: Exam: CTA Chest With Contrast Exam date and time: 11/03/2024 2:16 PM Age: 59 years old Clinical indication: Chest wall pain and sternal or substernal pain; Additional info: Assess for pe TECHNIQUE: Imaging protocol: Computed tomographic angiography of the chest with contrast. Exam focused on the arteries. 3D rendering (Not supervised by radiologist): MIP and/or 3D reconstructed images were created by the technologist. Radiation optimization: All CT scans at this facility use at least one of these dose optimization techniques: automated exposure control; mA and/or kV adjustment per patient size (includes targeted exams where dose is matched to clinical indication); or iterative reconstruction. Contrast material: OMNIPAQUE 350; Contrast volume: 100 ml; Contrast route: INTRAVENOUS (IV); COMPARISON: CT angio chest PE protcl [id number] 05/02/2022 1:06 PM RADIATION DOSE METRICS: Total DLP (mGy-cm): 510.96 FINDINGS: Pulmonary arteries: Normal. No pulmonary emboli. Aorta: Minimal fluid adjacent to the ascending thoracic aorta was present before and is unchanged. Lungs: Unremarkable. No consolidation. No masses. Pleural spaces: Unremarkable. No pneumothorax. No pleural effusion. Heart: Unremarkable. No cardiomegaly. No pericardial effusion. Lymph nodes: Visible central lymph nodes are not pathologically enlarged. Diaphragm: Small hiatal hernia. Bones/joints: Unremarkable. No acute fracture. Soft tissues: Unremarkable. CT/CT angio chest PE protcl [id number] IMPRESSION: No acute intrathoracic pathology.
--- NOTE | 2024-11-03 13:51 | ECG_ITS ---
[facility] Test Date: 2024-11-03 Pat Name: Madi Lowe Department: Room: 103 Gender: Male Mcat Tutor: : 1965 Requested By: Jovan Anthony Order Number: [id number] Reading MD: Manjit Alexis M.D. Measurements Intervals Morrison Rate: 67 P: -9 ID: [id number] QRS: -8 QRSD: 94 T: 71 QT: 428 QTc: 453 Interpretive Statements SINUS RHYTHM NONSPECIFIC T-WAVE ABNORMALITY INTERPRETATION BASED ON A DEFAULT AGE OF 40 YEARS Compared to ECG 11/03/2024 05:41:11 No significant changes Electronically Signed On 11-03-2024 18:03:51 GRINDER CHIPPER by Manjit Alexis M.D. [email or web address]
[2024-11-03] MEDS: nitroglycerin 0.4 mg sublingual Tablet SUBLINGUAL (14:00)
[2024-11-03] MEDS: morphine 4 mg/mL SDV 1 mL 2 MG IVP (14:00)
[2024-11-03] MEDS: enoxaparin 100 mg/mL Syringe SUBCUT (14:01)
[2024-11-03] MEDS: iohexol 350 mg/mL 500 mL Btl (per mL) IV (14:25)
--- NOTE | 2024-11-03 14:59 | P.PN_ITS ---
Subjective 2 Subjective: Minimal chest pain, necrosis of her chest, still bothering him this morning, although overall much better compared to presentation. Denies any cough, hemoptysis. Some dyspnea on exertion. Vitals/I&O/Wt Last Vital Signs Temp 98.6 F 11/03/24 12:48 Pulse 69 11/03/24 12:48 Resp 16 11/03/24 14:00 BP 136/87 11/03/24 12:48 Pulse Ox 95 11/03/24 12:48 O2 Del Method Room Air 11/03/24 12:48 11/02/24 11/03/24 11/03/24 22:59 06:59 14:59 Intake Total 0 / 0 120 / 120 Balance 0 / 0 120 / 120 Weight last 48 hrs Weight 106.594 kg Weight 102.965 kg Physical Exam 2 Const: COMMON NORMALS: patient oriented x3 and alert GENERAL APPEARANCE: c ooperative ORIENTATION/CONSCIOUSNESS: Yes awake HENMT: COMMON NORMALS: oropharynx normal Neck/C-Spine: COMMON NORMALS: no JVD Resp: COMMON NORMALS: normal respiratory effort OTHER: Minimally diminished. Cardio: COMMON NORMALS: no JVD, regular rhythm, S1 normal heart sound present, S2 normal heart sound present and No murmurs present (Cardio) RHYTHM: regular rhythm HEART SOUNDS: S1 normal heart sound present and S2 normal heart sound present GI: COMMON NORMALS: Normal to inspection, nondistended, normoactive bowel sounds present, Soft to palpation and non-tender PALPATION: Yes Soft to palpation Extremity: COMMON NORMALS: no joint enlargement and no pedal edema Neuro: COMMON NORMALS: patient oriented x3 and moves all extremities S ENSORIUM/ORIENTATION: Yes alert Skin: COMMON NORMALS: no rashes or lesions noted GENERAL SKIN EXAM: no rashes or lesions noted Data 11/02/24 22:26 11/02/24 22:26 A&P Assessment and plan (1) Chest pain: Does use a as needed inhaler at home.Overall improved, but still with residual medial chest pain across the upper chest. No cough, hemoptysis. Minimal shortness of breath. Mild elevation of troponin but with positive delta this morning. Was started on therapeutic anticoagulation. Continue aspirin, steroid statin, Toprol, monitor for risk of bleeding with anticoagulation. Reassess blood counts. Underwent stress testing, echocardiogram as performed and pending read as well. Follow-up results. Can monitor on telemetry with risk of arrhythmia. With additional episode of chest pain in the afternoon. D-dimer requested, abnormal, additionally assessed with CT angiogram chest PE protocol. Reviewed, negative for PE and otherwise without acute intrathoracic pathology. Stress test with small to moderate area of minimal to moderately decreased tracer uptake involving the basal and mid inferior region, with a slight reversibility, suggestive of myocardial scarring in the distribution of the right coronary artery with minimal yadira-infarct ischemia. With recurrent episode of CP this afternoon, given NTG, above abnormality. Discussed with gettering operator, appreciate consultation. Given recurrent chest pain, possible unstable angina, abnormality on stress test, further assessment with current angiography is going to be offered to him. For now we will make n.p.o. after midnight, hold further doses of Lovenox. Increase aspirin dose to 325 mg. (2) GERD (gastroesophageal reflux disease): Continue PPI (3) Hypertension: Continue Norvasc, HCTZ, metoprolol and losartan (4) Asthma: Mild exacerbation, with some dyspnea particular on exertion. Slightly diminished air entry on exam. Has had as needed DuoNebs. Add scheduled DuoNebs. (5) Generalized anxiety disorder: Continue Celexa Continue bupropion Plan DVT prophylaxis: Lovenox PDMP PDMP Reviewed: Not Reviewed Attestations 2 Medical Necessity Statement*: Continue hospitalization for assessment and management of chest pain, pending stress test, echocardiogram, additional assessment. Diagnoses Chest pain R07.9 GERD (gastroesophageal reflux disease) K21.9 Hypertension I10 Asthma J45.909 Generalized anxiety disorder F41.1
--- NOTE | 2024-11-03 15:56 | PC.NURSE ---
Provider is notified that patient was complaining of chest pain this afternoon. An EKG was taken. Patient was given a sublingual nitro and morphine. Patients pain did subside to a 2/10. Provider did come to bedside to see patient.
[2024-11-03 16:18] LABS: Influenza A NEGATIVE (Negative); Influenza B NEGATIVE (Negative); Respiratory Syncytial Virus Ce NEGATIVE (Negative); SARS-CoV-2 PCR NEGATIVE (Negative)
--- NOTE | 2024-11-03 19:23 | P.CONIM_ITS ---
<Statement entered by Claudy Lutz MD - 11/03/24 21:08> Patient was evaluated and cared for in conjunction with an advanced practice practitioner. I personally examined the patient and reviewed the chart and all pertinent data including imaging, telemetry, and laboratory results. I discussed the patient in detail with the advanced practice practitioner. Please see their note for complete H&P testing result and agreed upon plan of care for the patient. 59-year-old male past medical history significant for hypertension hyperlipidemia obesity has been experiencing chest pain off and on basis now over the last few weeks symptoms have worsened to the extent that started having chest pressure at rest, it is the reason he decided to come to the ER. He was rule out for acute coronary syndrome stress test was performed which showed mild to moderate area of ischemia in the inferior wall. Since patient continues to have symptoms and chest pain even today he has chest pain relieved with nitroglycerin we therefore recommend proceeding with left heart catheterization/PCI if indicated GENERAL: Patient is alert, awake and oriented x3. HEART: Regular S1 and S2. No murmur, rub or gallop. LUNGS: Clear to auscultate bilaterally. CENTRAL NERVOUS SYSTEM: Grossly nonfocal. EXTREMITIES: Lower extremities with out edema bilaterally. Assessment and plan Chest pain Hypertension Hyperlipidemia Abnormal stress test Proceed with left heart cath/PCI if indicated in the morning Providers/Reason For Consult 2 Consulting Physician/Specialty*: Claudy Lutz MD Reason for Consult*: Chest pain Requesting Physician: Dr. Anthony Attending Physician: Jovan Anthony Primary Care Provider: Walker Sarabia MD History of Present Illness History of Present Illness Madi Lowe is a 59 year old male who came into the ER with chief complaint of Ongoing chest pain for the last 2 to 3 days. He denies any significant history of coronary artery disease or heart issues. He states he has a history of high blood pressure, hypercholesterolemia and obesity denies diabetes does not smoke.He states that sometimes this chest pain will come out of nowhere but often has exertional chest pain that radiates to his jaw and shoulders relieved with nitro and rest. EKG showed no acute ST or T wave abnormalities. Troponins were 20-20.62-38.78. He had a stress test that showed: IMPRESSIONS 1. Myocardial perfusion imaging revealing small to moderate area of minimal to moderately decreased tracer uptake involving the basal and mid inferior region, with a slight reversibility, suggestive of myocardial scarring in the distribution of the right coronary artery with minimal yadira-infarct ischemia. (Summed difference score of 1) 2. Normal LV ejection fraction of 60%. 3. LV wall motion analysis revealing no gross wall motion abnormalities.. 4. Mildly dilated LV cavity. Compared to the study from 09/10/2019, the ischemia appears to be new 20 at this time patient is comfortable vital signs are stable. Denies chest pain or shortness of breath. Review of Systems 2 Narrative: Consitutional: denies fever, chills, body aches, or changes in appetite, denies abnormal weight loss Eyes: Denies changes in vision Card: Denies chest pain, palpitations, irregular heart rhythm, edema, syncope, shortness of breath, orthopnea, leg pain with exertion Resp: Denies shortness of breath, denies hemoptysis, denies cough GI: denies abdominal pain, denies nausea or voimting, denies blood in stool : denies blood in urine, denies dysuria Musc: Denies extremity pain, denies limited range of motion or recent injury Skin: Denies rash, lesions, or wounds, denies changes to skin color Neuro: Denies nubmness in extremities, h/a, s/s of stroke Markus: Denies easy bruiding/bleeding Medications/Allergies Home Medications ?Medication ?Instructions ?Recorded ?Confirmed ?Last Taken ?Type fluticasone propionate 50 1 spray intranasal BID PRN n tatiana 10/24/22 11/03/24 11/09/23 Rx mcg/actuation nasal congestion #16 grams spray,suspension (Flonase Allergy Relief) Nebulizer machine with mask and #1 ea 04/11/23 5 Unknown Rx tubing citalopram 20 mg tablet 40 mg (2 x 20 mg) PO DAILY 3 0 days 03/04/24 11/03/24 11/02/24 Rx #60 tabs metoprolol tartrate 100 mg tablet See Rx Instructions .Route 07/21/24 11/03/24 11/02/24 Rx .COMPLEX #180 tabs amlodipine 2.5 mg tablet 2.5 mg PO DAILY #30 tabs 12/1311/03/24 11/02/24 Rx bupropion HCl 150 mg 24 hr tablet, 150 mg PO QAM #30 t abs 08/24/24 11/03/24 11/02/24 Rx extended release (Wellbutrin XL) losartan 100 mg tablet 100 mg PO DAILY 11/03/2409/1511/02/24 History Allergies Allergy/AdvReac Type Severity Reaction Status Date / Time No Known Allergies Allergy Verified 11/02/24 21:15 Current Medications Generic Name Dose Route Start Last Admin Trade Name Freq PRN Reason Stop Dose Admin Acetaminophen 650 mg 11/03/24 01:06 11/03/24 10:18 Acetaminophen 325 Mg Tablet PO 650 mg Q6H PRN Administration Mild/Mod Pain Or Temp >/= 101 Alprazolam 0.5 mg 11/03/24 10:39 11/03/24 10:53 Alprazolam 0.5 Mg Tablet PO 0.5 mg TID PRN Administration ANXIETY Amlodipine Besylate 2.5 mg 11/03/24 09:00 11/03/24 09:04 Amlodipine 5 Mg Tablet PO 2.5 mg DAILY TRE Administration Bupropion HCl 150 mg 11/03/24 06:00 11/03/24 09:04 Bupropion Xl (24 Hr) 150 Mg Tablet PO 150 mg QAM TRE Administration Citalopram Hydrobromide 40 mg 11/03/24 09:00 11/03/24 09:05 Citalopram 20 Mg Tablet PO 40 mg DAILY TRE Administration Enoxaparin Sodium 100 mg 11/03/24 13:30 11/03/24 14:01 Enoxaparin 100 Mg/Ml Syringe SUBCUT 100 mg Q12H TRE Administration Hydrochlorothiazide 25 mg 11/03/24 09:00 11/03/24 09:05 Hydrochlorothiazide 25 Mg Tablet PO 25 mg DAILY TRE Administration Losartan Potassium 100 mg 11/03/24 09:00 11/03/24 09:05 Losartan 50 Mg Tablet PO 100 mg DAILY TRE Administration Metoprolol Tartrate 100 mg 11/03/24 09:00 11/03/24 09:05 Metoprolol Tartrate 50 Mg Tablet PO 100 mg BID@0900,2100 TRE Administration Morphine Sulfate 2 mg 11/03/24 06:26 11/03/24 14:00 Morphine 4 Mg/Ml Sdv 1 Ml IVP 2 mg Q4H PRN Administration SEVERE PAIN Nitroglycerin 0.4 mg 11/03/24 06:26 11/03/24 14:00 Nitroglycerin 0.4 Mg Sublingual Tablet SUBLINGUAL 0.4 mg Q5M PRN Administration CHEST PAIN Pantoprazole Sodium 40 mg 11/03/24 09:00 11/03/24 09:[address] 40 Mg Tablet PO 40 mg DAILY TRE Administration PFSH Acute 2 PFSH: Medical History Psychiatric care Hypertension Chest pain Immunization counseling High risk medication use HTN (hypertension) Major depressive disorder Chronic steroid use Polymyalgia rheumatica Asthma Surgical History Hx of cataract surgery 08/26/23, 09/09/23 - Dr Smith History of umbilical hernia repair (01/26/20) H/O esophagogastroduodenoscopy Status post colonoscopy History of nasal surgery H/O knee surgery H/O hand surgery History of appendectomy Family History Father Lung disease Asthma Denies family history of Diabetes Clotting disorder Dementia Chronic kidney disease (CKD) Social History Smoking and tobacco/nicotine status: never used tobacco/nicotine Alcohol intake: never Substance/Drug Use: never Lives independently: Yes Household members: spouse Marital status: Current occupational status: employed Current occupational exposures/hazards: Yes Do you think of yourself as: Straight/Heterosexual Current gender identity: Male Vitals/I&O/Wt Last Vital Signs Temp 98.4 F 11/03/24 19:20 Pulse 72 11/03/24 19:20 Resp 25 H 11/03/24 19:20 BP 124/69 11/03/24 19:20 Pulse Ox 95 11/03/24 19:20 O2 Del Method Room Air 11/03/24 19:20 11/03/24 11/03/24 11/03/24 06:59 14:59 22:59 Intake Total 120 / 120 240 / 360 Balance 120 / 120 240 / 360 Weight last 48 hrs Weight 235 lb Weight 227 lb Physical Exam 2 Narrative: General: No apparent distress, healthy appearing, well nourished HENMT: normoceophalic Neck: No carotid bruit bilaterally Muskuloskeletal: Full ROM Lymphatic: no lymphedema noted Respiratory: Normal respiratory effort, clear to auscultation bilaterally throughout all lung perez, no use of accessory muscles Cardio: No JVD, regular rate, regular rhythm, S1 S2 normal, no murmurs, peripheral pulses 2+ throughout GI: Normal to inspection, nondistended Extremities: Full ROM, normal, normal capillary refill, no cyanosis or edema Neuro: Alert and oriented x4, no focal motor deficits Psych: Affect normal, denies suicidal ideation, mental status grossly normal Skin: No rashes or lesions noted, no wounds Data 11/02/24 22:26 11/02/24 22:26 A&P Assessment and plan (1) Chest pain: (2) Hypertension: (3) Abnormal stress test: Plan Patient has signs and symptoms that are classic for coronary ischemia. At this time we recommend proceeding with a left heart cath possible PCI. The risks and benefits were discussed with the patient. He agrees to proceed. Will plan on doing them first thing tomorrow morning. He will be n.p.o. after midnight. Will start Nitro Paste for prevention of chest pain. Thank you for allowing us to care for this very pleasant patient. PDMP PDMP Reviewed: Not Reviewed Consult Attestations 2 Medical Necessity Statement: Deferred to primary care. Coding Level of Care Code Acute Code for g Fwd Diagnoses Chest pain R07.9 Hypertension I10 Abnormal stress test R94.39
[2024-11-03] MEDS: aspirin 325 mg EC Tablet PO (20:43)
[2024-11-03] MEDS: atorvastatin 40 mg Tablet PO (20:43)
[2024-11-03] MEDS: nitroglycerin 1 gm/inch oint Pkt 0.5 INCH TOPICAL (20:44)
[2024-11-03] MEDS: trazodone 50 mg Tablet PO (20:44)
[2024-11-03] MEDS: ipratropium-albuterol 3 mL Neb INHALATION (21:25)
[2024-11-04] VITALS (18 sets, daily range): BP systolic 121–168; BP diastolic 72–97; PULSE 65–77; RESP 16–24; TEMP 36.4–37.1; O2SAT 91–95
[2024-11-04] MEDS: nitroglycerin 1 gm/inch oint Pkt 0.5 INCH TOPICAL (01:58)
[2024-11-04] MEDS: ipratropium-albuterol 3 mL Neb INHALATION ×4 (02:47→20:18)
[2024-11-04] MEDS: sodium chloride 0.9% 1,000 ML 50 ML IV (04:00)
[2024-11-04 04:36] LABS: Basophils % 0.5 %; Eosinophils # 0.2 10^3/uL (0.0-0.8); Eosinophils % 4.1 %; Hematocrit 32.8 % (37-53); Lymphocytes # 1.1 10^3/uL (0.8-4.8); Lymphocytes % 20.1 %; Mean Corpuscular Hemoglobin 29.7 pg (27-33); Mean Corpuscular Volume 92.9 fl (82-101); Mean Platelet Volume 10.5 fL (7.4-10.4); Monocytes # 0.6 10^3/uL (0.2-0.9); Monocytes % 9.9 %; Neutrophils # 3.62 10^3/uL (1.8-7.7); Nucleated Red Blood Cells % 0 %; Platelet Count 200 10^3/cmm (157-399); Red Blood Count 3.53 10^6/uL (3.85-5.65); Red Cell Distribution Width 16.7 % (12.1-15.1); White Blood Count 5.57 10^3/uL (3.29-11.43)
[2024-11-04 04:55] LABS: Partial Thromboplastin Time 38.3 SECONDS (23.9-36.7)
[2024-11-04 05:09] LABS: Anion Gap 15.8 (5-19); Blood Urea Nitrogen 11 mg/dL (6-20); Calcium 9.2 mg/dL (8.5-10.5); Carbon Dioxide 24 mmol/L (22-29); Chloride 98 mmol/L (98-107); Creatinine Clr Calc Pharmacy 81.7104; Glomerular Filtration Rate 62.4 mL/min (90-130); Glucose 129 mg/dL (65-115); Osmolality Calculated 279 mOsm/kg (285-295); Potassium 3.8 mmol/L (3.5-5.1); Sodium 134 mmol/L (136-145)
[2024-11-04] MEDS: diphenhydrAMINE 50 mg Capsule PO (05:17)
[2024-11-04] MEDS: buPROPion XL (24 HR) 150 mg Tablet PO (05:17)
--- NOTE | 2024-11-04 06:00 | ECG_ITS ---
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 Interpretive Statements Intraprocedure shortess of breath; Lung unchanged pre/post procedure; Symptoms resoled by discharge PROCEDURE: At the baseline, the EKG revealed first-degree AV block. Some nonspecific T wave changes.. The baseline heart was 60 bpm with a blood pressue of 155/99 mm of Hg Lexiscan was infused over a period of 20 seconds. A total of 0.4 milligrams of Lexiscan was infused. The stress phase was continued for a total of 5 minutes. Heart rate at the end of the stress phase was 67 bpm with a blood pressure 54/97 mm of Hg. The EKG at the peak infusion revealed no significant changes. Sestamibi was injected 20 seconds after the Lexiscan infusion. Heart rate at the end of the recovery phase was 67 bpm with a blood pressure of 51/96 mm of Hg. CONCLUSION: 1. No significant EKG changes with the LexiScan infusion 2. No LexiScan induced chest pain or cardiac arrhythmia 3. Normal blood pressure and heart rate response 4. Sestamibi/sestamibi perfusion scan pending; see separate report. Electronically Signed On 11-08-2024 06:14:26 COMPOSITION TILE LAYER by Manjit Alexis M.D. [email or web address]
--- NOTE | 2024-11-04 06:23 | P.HPUD_ITS ---
Surgery/Procedure H&P Update DATE OF PROCEDURE: November 04, 2024 DATE H&P PERFORMED: 11/03/24 H&P UPDATE INFORMATION: I have reviewed H&P completed within last 30 days, I have examined patient prior to procedure and No changes to prior documentation PREOP DIAGNOSIS: Angina/abnormal stress test PRIMARY INDICATION FOR PROCEDURE: Angina/abnormal stress test PLANNED PROCEDURE: Operation Date: 11/04/24 06:00 Proposed Procedures p Cardiac Catheterization(Left) - Claudy Lutz MD PATIENT REASSESSED PRIOR TO SEDATION, WITH NO CHANGE NOTED: Yes PHYSICAL EXAM: alert, oriented x 3, clear to auscultation bilaterally, regular rate & rhythm and operative site marked AIRWAY EVAL/ANESTHESIA PLAN: ASA II, Risks, benefits & alternatives of sedation and/or procedure discussed and Patient agrees to continue as planned ADDITIONAL INFORMATION: Patient has been explained all risk-benefit and alternative for the procedure patient understand 2% risk of stroke major bleed, patient is standard risk for urgent emergent vascular or bypass surgery, risk for transfusion, contrast- induced nephropathy hematoma bruising and allergic reaction. Patient would like to proceed with that.
--- NOTE | 2024-11-04 07:05 | PC.NURSE ---
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
--- NOTE | 2024-11-04 08:20 | PM.PROC ---
Procedure Note: Date of procedure: 11/04/24 Pre-procedure diagnosis: Angina, abnormal stress test Post-procedure diagnosis: same Procedure: Left heart catheterization: Left main has luminal irregularities large-caliber vessel, LAD has ectasia large-caliber with high-grade moderate to large size diagonal ostial lesion. Left circumflex is large caliber ectatic vessel without significant stenosis. RCA is very large caliber ectatic torturous vessel with high-grade distal 90% eccentric calcified stenosis it is a vessel which is culprit and lights up further ischemia on the stress test. Left ventricle ejection fraction is 60% Left ventricular end-diastolic pressure was 31 mmHg PCI to distal RCA using guide liner and AL 0.75 guide due to high tortuosity of the vessel. Lesion was predilated with 3.0 x 12 mm balloon, it was treated with single drug-eluting stent using 4.0 x 12, it was postdilated with 4.5 x 8 noncompliant balloon. IVUS was performed which showed good stent apposition. Plan: Staged PCI to diagonal branch in 2 to 3 weeks since patient achieved high contrast due to extreme tortuosity and difficulty in placing distal RCA stent. Continue aspirin high intensity statin due to ectatic vessels and Plavix Continue beta-bernard Bedrest for 4 hours Possible discharge tomorrow Coding Level of Care Code Acute Code for Salvador Fwpadmini
--- NOTE | 2024-11-04 08:25 | PC.NURSE ---
Addendum entered by Eri Hardin RN 11/04/24 11:00: Right groin angioseal is oozing upon arrival. Nurse from director of laboratory operations said that Dr. Lutz is aware. About 1000 Tiffanie, FRUIT THINNER MACHINE OPERATOR was bedside and I made her aware of this also. Original Note: Patient came back from director of laboratory operations at 0826 with a right radial TR-band and right groin angioseal.
--- NOTE | 2024-11-04 08:27 | P.PN_ITS ---
Subjective 2 Subjective: Patient underwent left heart catheterization this morning. He was noted to have ectatic large caliber torturous RCA with distal high-grade calcified stenosis. It was treated with balloon angioplasty followed by a single drug-eluting stent postdilated with noncompliant balloon. IVUS was performed which showed good apposition. Patient was also noted to have high-grade ostial diagonal lesion, since due to this complex PCI we reached high normal contrast therefore for diagonal lesion we will staged PCI and bring patient back in 2 to 3 weeks. In order to prevent contrast induced nephropathy I will continue 100 mL/h of IV fluid for next 10 hours. Will check kidney function in the morning. Vitals/I&O/Wt Last Vital Signs Temp 98.2 F 11/04/24 04:00 Pulse 65 11/04/24 06:00 Resp 22 H 11/04/24 04:00 BP 132/84 11/04/24 04:00 Pulse Ox 92 11/04/24 04:00 O2 Del Method Room Air 11/04/24 04:00 11/03/24 11/04/24 11/04/24 22:59 06:59 14:59 Intake Total 540 / 660 0 / 660 Output Total 200 / 200 Balance 340 / 460 0 / 460 Weight last 48 hrs Weight 235 lb Weight 235 lb Weight 227 lb Physical Exam 2 Const: OTHER: GENERAL: Patient is alert, awake and oriented x3. HEART: Regular S1 and S2. No murmur, rub or gallop. LUNGS: Clear to auscultate bilaterally. CENTRAL NERVOUS SYSTEM: Grossly nonfocal. EXTREMITIES: Lower extremities with out edema bilaterally. Data 11/04/24 03:57 11/04/24 03:57 A&P Assessment and plan (1) CAD (coronary artery disease): (2) Hypertension: (3) Hyperlipidemia LDL goal <70: Plan Left main has luminal irregularities large-caliber vessel, LAD has ectasia large-caliber with high-grade moderate to large size diagonal ostial lesion. Left circumflex is large caliber ectatic vessel without significant stenosis. RCA is very large caliber ectatic torturous vessel with high-grade distal 90% eccentric calcified stenosis it is a vessel which is culprit and lights up further ischemia on the stress test. Left ventricle ejection fraction is 60% Left ventricular end-diastolic pressure was 31 mmHg PCI to distal RCA using guide liner and AL 0.75 guide due to high tortuosity of the vessel. Lesion was predilated with 3.0 x 12 mm balloon, it was treated with single drug-eluting stent using 4.0 x 12, it was postdilated with 4.5 x 8 noncompliant balloon. IVUS was performed which showed good stent apposition. Plan: Staged PCI to diagonal branch in 2 to 3 weeks since patient achieved high contrast due to extreme tortuosity and difficulty in placing distal RCA stent. Continue aspirin high intensity statin due to ectatic vessels and Plavix Continue beta-bernard Bedrest for 4 hours IV fluid 100 mL/h for next 10 hours in order to prevent contrast induced nephropathy. PDMP PDMP Reviewed: Not Reviewed Attestations 2 Medical Necessity Statement*: Patient require continuation hospitalization he is post PCI Coding Level of Care Code Acute Code for [facility] Fwd Diagnoses CAD (coronary artery disease) I25.10 Hypertension I10 Hyperlipidemia LDL goal <70 E78.5
--- NOTE | 2024-11-04 08:29 | ECG_ITS ---
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: : 1965 Requested By: Claudy Lutz Order Number: [id number] Reading MD: CLAUDY LUTZ Measurements Intervals [place] Rate: 65 P: 8 [place]: 217 QRS: -12 QRSD: 106 T: 49 QT: 448 QTc: 466 Interpretive Statements SINUS RHYTHM WITH FIRST DEGREE AV BLOCK POSSIBLE RIGHT VENTRICULAR CONDUCTION DELAY [RSR (QR) IN V1/V2] ST ELEVATION, PROBABLY EARLY REPOLARIZATION [ST ELEVATION WITH NORMALLY INFLECTED T-WAVE] Compared to ECG 11/03/2024 13:52:44 First degree AV block now present ST (T wave) deviation now present Early repolarization now present T-wave abnormality no longer present Electronically Signed On 11-06-2024 19:31:35 APARTMENT RENTAL AGENT by CLAUDY LUTZ [email or web address]
[2024-11-04] MEDS: sodium chloride 0.9% 1,000 ML 100 ML IV (08:33)
[2024-11-04] MEDS: losartan 50 mg Tablet 100 MG PO (10:07)
[2024-11-04] MEDS: amlodipine 5 mg Tablet 2.5 MG PO ×2 (10:07→12:06)
[2024-11-04] MEDS: citalopram 20 mg Tablet 40 MG PO (10:08)
[2024-11-04] MEDS: pantoprazole DR 40 mg Tablet PO (10:08)
[2024-11-04] MEDS: hydroCHLOROthiazide 25 mg Tablet PO (10:08)
[2024-11-04] MEDS: metoprolol tartrate 50 mg Tablet 100 MG PO ×2 (10:17→21:15)
[2024-11-04] MEDS: ALPRAZolam 0.5 mg Tablet PO ×2 (10:18→21:14)
--- NOTE | 2024-11-04 10:46 | P.PN_ITS ---
Subjective 2 Subjective: He is doing well after his angiogram. Denies chest pain or pressure. Denies of breathing. Tells me he has discussed the procedure with cardiology, and that 80% stenosis was identified in one of the common arteries which required stent. He states that discussed that other vessel is also 90% stenosed for which she had agreed that he will come back for staged procedure. Denies any issues with right wrist or hand at the site of access. Vitals/I&O/Wt Last Vital Signs Temp 98.2 F 11/04/24 04:00 Pulse 65 11/04/24 08:37 Resp 16 11/04/24 08:00 BP 157/97 11/04/24 10:07 Pulse Ox 91 11/04/24 08:37 O2 Del Method Room Air 11/04/24 08:37 11/03/24 11/04/24 11/04/24 22:59 06:59 14:59 Intake Total 540 / 660 0 / 660 Output Total 200 / 200 350 / 350 Balance 340 / 460 0 / 460 -350 / -350 Weight last 48 hrs Weight 106.594 kg Weight 106.594 kg Weight 102.965 kg Physical Exam 2 Const: COMMON NORMALS: patient oriented x3 and alert GENERAL APPEARANCE: c ooperative ORIENTATION/CONSCIOUSNESS: Yes awake HENMT: COMMON NORMALS: oropharynx normal Neck/C-Spine: COMMON NORMALS: no JVD Resp: COMMON NORMALS: normal respiratory effort Cardio: COMMON NORMALS: no JVD, regular rhythm, S1 normal heart sound present, S2 normal heart sound present and No murmurs present (Cardio) RHYTHM: regular rhythm HEART SOUNDS: S1 normal heart sound present and S2 normal heart sound present GI: COMMON NORMALS: Normal to inspection, nondistended, normoactive bowel sounds present, Soft to palpation and non-tender PALPATION: Yes Soft to palpation Extremity: COMMON NORMALS: no joint enlargement and no pedal edema N ARRATIVE EXTREMITY EXAM: Right wrist TR band. No bleeding or bruising. Hand is well-perfused, without cyanosis or mottling. Neuro: COMMON NORMALS: patient oriented x3 and moves all extremities S ENSORIUM/ORIENTATION: Yes alert Skin: COMMON NORMALS: no rashes or lesions noted GENERAL SKIN EXAM: no rashes or lesions noted Data 11/04/24 03:57 11/04/24 03:57 A&P Assessment and plan (1) Chest pain: Status post coronary angiography today due to unstable angina, with finding of stenosis of RCA status post tenting, additional noted stenosis of diagonal branch for which will need staged procedure. Reviewed cardiology note, appears plans for 2 to 3 weeks from now. Continue post car angiography care. Monitor in telemetry with risk of arrhythmia, reperfusion injury. Reassess chemistry with risk of kidney injury. Monitor for risk of bleeding. Reviewed CBC, repeat blood counts. Repeat chemistry. Discussed with him we will need to continue aspirin and Plavix uninterrupted due to risk of stent thrombosis. He verbalized understanding. Continue metoprolol, atorvastatin. Currently receiving some low rate IV fluids as per cardiology, monitor for risk of fluid overload. Reassess while status, chemistry. Reviewed echocardiogram. Discussed with nursing, case packer. With additional episode of chest pain in the afternoon. D-dimer requested, abnormal, additionally assessed with CT angiogram chest PE protocol. Reviewed, negative for PE and otherwise without acute intrathoracic pathology. (2) GERD (gastroesophageal reflux disease): Continue PPI (3) Hypertension: Increase amlodipine to 5 mg. Give 1 extra dose of 2.5 currently. Continue Norvasc, HCTZ, metoprolol and losartan (4) Asthma: With improvement. Mild exacerbation, with some dyspnea particular on exertion. Slightly diminished air entry on exam. Has had as needed DuoNebs. Add scheduled DuoNebs. (5) Generalized anxiety disorder: Continue Celexa Continue bupropion Plan DVT prophylaxis: Lovenox PDMP PDMP Reviewed: Not Reviewed Attestations 2 Medical Necessity Statement*: Continue admission for assessment and management after unstable angina, with significant coronary disease, status post coronary artery stenting, optimization of hypertension. and High MDM includes amount and/or complexity of data reviewed/ordered [ resulted lab(s)/test(s), ordered lab(s)/test(s) and other healthcare professional discussion] and described risk of complication, morbidity or mortality of management as documented Diagnoses Chest pain R07.9 GERD (gastroesophageal reflux disease) K21.9 Hypertension I10 Asthma J45.909 Generalized anxiety disorder F41.1
--- NOTE | 2024-11-04 10:47 | P.PN_ITS ---
<Statement entered by Claudy Lutz MD - 11/04/24 19:26> Patient was evaluated and cared for in conjunction with an advanced practice practitioner. I personally examined the patient and reviewed the chart and all pertinent data including imaging, telemetry, and laboratory results. I discussed the patient in detail with the advanced practice practitioner. Please see their note for complete H&P testing result and agreed upon plan of care for the patient. Subjective 2 Subjective: Patient status post stent to the distal RCA. Staged PCI to the diagonal branch will be needed in 2 to 3 weeks. Patient doing well without chest pain shortness of breath. Still has some oozing from his groin site but overall with stable blood pressures being held. Vitals/I&O/Wt Last Vital Signs Temp 98.2 F 11/04/24 04:00 Pulse 65 11/04/24 08:37 Resp 16 11/04/24 08:00 BP 157/97 11/04/24 10:07 Pulse Ox 91 11/04/24 08:37 O2 Del Method Room Air 11/04/24 08:37 11/03/24 11/04/24 11/04/24 22:59 06:59 14:59 Intake Total 540 / 660 0 / 660 Output Total 200 / 200 350 / 350 Balance 340 / 460 0 / 460 -350 / -350 Weight last 48 hrs Weight 235 lb Weight 235 lb Weight 227 lb Physical Exam 2 Narrative: GENERAL: Patient is alert, awake and oriented x3. HEART: Regular S1 and S2. No murmur, rub or gallop. LUNGS: Clear to auscultate bilaterally. CENTRAL NERVOUS SYSTEM: Grossly nonfocal. EXTREMITIES: Lower extremities with out edema bilaterally. Data 11/04/24 03:57 11/04/24 03:57 A&P Assessment and plan (1) CAD (coronary artery disease): (2) Hypertension: (3) Hyperlipidemia LDL goal <70: Plan Patient received a stent to the distal RCA. Staged PCI to diagonal branch in 2 to 3 weeks. Continue beta-bernard continue aspirin high intensity statin due to ectatic vessels and Plavix. PDMP PDMP Reviewed: Not Reviewed Attestations 2 Medical Necessity Statement*: Patient stay expected to cross 2 midnights due to the above defined care. Most likely he will discharge tomorrow. Coding Level of Care Code Acute Code for [facility] Diagnoses CAD (coronary artery disease) I25.10 Hypertension I10 Hyperlipidemia LDL goal <70 E78.5
--- NOTE | 2024-11-04 15:36 | PC.NURSE ---
Addendum entered by Eri Hardin RN 11/04/24 15:42: Stat CBC is cancelled per Dr. Lutz. Lab is notified. Original Note: Dr Ltuz is updated that the right femoral angioseal is still oozing, he sent LAM Moreno to bedside to assess. Nursing and Tiffanie looked at site. The site is still oozing. Per Dr. Lutz a pressure dressing is applied again. Nursing is to let Dr Lutz know if he is saturating the dressing every hour.
--- NOTE | 2024-11-04 18:36 | PC.NURSE ---
Dr. Lutz is updated that patient's right femoral angioseal has stopped oozing. Patient has sat up on the side of the bed and stood up at bedside, with nursing present, and no bleeding. Patients right radial TR-band, the air was slowly removed 2ml's at time. TR-band is removed and a dressing of a 2 x 2 and tegaderm is applied. No hematoma noted. Patient tolerated well. Patient is reeducated to not use his right wrist/hand for the next 24 hours. Patient states understanding.
[2024-11-04] MEDS: aspirin 325 mg EC Tablet PO (21:14)
[2024-11-04] MEDS: atorvastatin 40 mg Tablet 80 MG PO (21:14)
[2024-11-04] MEDS: trazodone 50 mg Tablet PO (21:15)
[2024-11-05] VITALS (7 sets, daily range): BP systolic 125–149; BP diastolic 81–94; PULSE 64–70; RESP 16–20; TEMP 36.6–36.7; O2SAT 92–93; BMI 34.0
[2024-11-05 03:02] LABS: Basophils # 0.1 10^3/uL (0.0-0.1); Basophils % 0.7 %; Eosinophils # 0.2 10^3/uL (0.0-0.8); Eosinophils % 3.1 %; Hematocrit 32.6 % (37-53); Lymphocytes # 1.3 10^3/uL (0.8-4.8); Lymphocytes % 17.9 %; Mean Corpuscular HGB Conc 32.5 g/dL (30-55); Mean Corpuscular Hemoglobin 29.6 pg (27-33); Mean Corpuscular Volume 91.1 fl (82-101); Mean Platelet Volume 9.7 fL (7.4-10.4); Monocytes # 0.7 10^3/uL (0.2-0.9); Monocytes % 9.4 %; Neutrophils # 4.79 10^3/uL (1.8-7.7); Neutrophils % 68.6 %; Nucleated Red Blood Cells % 0 %; Platelet Count 201 10^3/cmm (157-399); Red Blood Count 3.58 10^6/uL (3.85-5.65); Red Cell Distribution Width 16.8 % (12.1-15.1); White Blood Count 6.99 10^3/uL (3.29-11.43)
[2024-11-05 03:24] LABS: Anion Gap 16.6 (5-19); Blood Urea Nitrogen 12 mg/dL (6-20); Calcium 9.2 mg/dL (8.5-10.5); Carbon Dioxide 23 mmol/L (22-29); Chloride 98 mmol/L (98-107); Glomerular Filtration Rate 56.9 mL/min (90-130); Glucose 106 mg/dL (65-115); Osmolality Calculated 278 mOsm/kg (285-295); Potassium 3.6 mmol/L (3.5-5.1); Sodium 134 mmol/L (136-145)
[2024-11-05] MEDS: buPROPion XL (24 HR) 150 mg Tablet PO (06:21)
[2024-11-05] MEDS: ipratropium-albuterol 3 mL Neb INHALATION (08:24)
[2024-11-05] MEDS: pantoprazole DR 40 mg Tablet PO (09:05)
[2024-11-05] MEDS: amlodipine 5 mg Tablet PO (09:05)
[2024-11-05] MEDS: aspirin 81 mg EC Tablet PO (09:05)
[2024-11-05] MEDS: citalopram 20 mg Tablet 40 MG PO (09:05)
[2024-11-05] MEDS: clopidogrel 75 mg Tablet PO (09:05)
[2024-11-05] MEDS: losartan 50 mg Tablet 100 MG PO (09:06)
[2024-11-05] MEDS: hydroCHLOROthiazide 25 mg Tablet PO (09:06)
[2024-11-05] MEDS: metoprolol tartrate 50 mg Tablet 100 MG PO (09:12)
--- NOTE | 2024-11-05 11:49 | PM.PN ---
Subjective Subjective: Patient status post stent to the distal RCA. Staged PCI to the diagonal branch will be needed in 2 to 3 weeks. Patient doing well without chest pain shortness of breath. His groin has stopped oozing. He is doing well without complaints creatinine has slightly increased to 1.3 Vitals/I&O/Wt Last Vital Signs Temp 97.8 F 11/05/24 11:47 Pulse 70 11/05/24 11:47 Resp 16 11/05/24 08:25 BP 143/94 11/05/24 11:47 Pulse Ox 93 11/05/24 08:25 O2 Del Method Room Air 11/05/24 08:25 11/04/24 11/05/24 11/05/24 22:59 06:59 14:59 Intake Total 1240 / 1360 1000 / 2360 120 / 120 Output Total 550 / 900 Balance 690 / 460 1000 / 1460 120 / 120 Weight last 48 hrs Weight 230 lb 7 oz Weight 235 lb Physical Exam Narrative: GENERAL: Patient is alert, awake and oriented x3. HEART: Regular S1 and S2. No murmur, rub or gallop. LUNGS: Clear to auscultate bilaterally. CENTRAL NERVOUS SYSTEM: Grossly nonfocal. EXTREMITIES: Lower extremities with out edema bilaterally. Data 11/05/24 02:24 11/05/24 02:24 A&P Assessment and plan (1) CAD (coronary artery disease): Qualifiers: Associated angina: with stable angina Coronary Disease-Associated Artery/Lesion type: [place] artery [place] vs. transplanted heart: [place] heart Qualified Code(s): I25.118 - Atherosclerotic heart disease of [place] coronary artery with other forms of angina pectoris (2) Hypertension: Qualifiers: Hypertension type: primary hypertension Qualified Code(s): I10 - Essential (primary) hypertension (3) Hyperlipidemia LDL goal <70: Plan Patient received a stent to the distal RCA. Staged PCI to diagonal branch in 2 to 3 weeks. Continue beta-bernard continue aspirin high intensity statin due to ectatic vessels and Plavix. Monitor creatinine. From cardiology perspective, patient may be discharged home. PDMP PDMP Reviewed: Not Reviewed Attestations Medical Necessity Statement*: Deferred to primary. Coding Level of Care Code Acute Code for [facility] Diagnoses Coronary artery disease of [place] artery of [place] heart with stable angina pectoris I25.118 Associated angina: with stable angina Coronary Disease-Associated Artery/Lesion type: [place] artery [place] vs. transplanted heart: [place] heart Primary hypertension I10 Hypertension type: primary hypertension Hyperlipidemia LDL goal <70 E78.5
--- NOTE | 2024-11-05 16:03 | PM.DCS ---
Discharge Providers Date of Admission: 11/03/24 01:06 Date of Discharge: November 05, 2024 Attending Provider at Admission: Walker London MD Attending Provider at Discharge: Jovan Anthony Primary Care Provider: Walker Sarabia MD Diagnoses at Discharge Discharge Diagnosis (1) CAD (coronary artery disease): Status: Acute Qualifiers: Coronary Disease-Associated Artery/Lesion type: [place] artery [place] vs. transplanted heart: [place] heart Associated angina: with stable angina Qualified Code(s): I25.118 - Atherosclerotic heart disease of [place] coronary artery with other forms of angina pectoris (2) Hypertension: Status: Acute Qualifiers: Hypertension type: primary hypertension Qualified Code(s): I10 - Essential (primary) hypertension (3) Hyperlipidemia LDL goal <70: Status: Acute Reason for Visit Reason for Visit: Chest Pains Brief History: Madi Lowe is a 59 year old male with past medical history significant for generalized anxiety disorder, hypertension, polymyalgia rheumatica, asthma, multiple other comorbidities who presents emergency department with left-sided chest pain. Patient reports symptoms been present for 2 months. He reports symptoms are severe at times. Reports radiation to jaw. Exertion at times will make symptoms worse. Rest usually improves. Did note symptoms occurred at rest this past evening. He denies any known history of heart disease. Reports a stress test several years ago which was just mildly abnormal. Hospital Course Hospital Course He was admitted to cardiac stepdown unit, started on treatment for NSTEMI with noted positive troponin delta, assessed with echocardiogram, stress test, stress test showing moderate area of minimal to moderately decreased tracer uptake involving basal and mid inferior region with slight reversibility, suggestive of myocardial scarring in the distribution of the right coronary tree with mild yadira-infarct ischemia. With his symptoms, risk factors including hypertension, obesity, he underwent additional assessment with coronary angiography with finding of luminal irregularities, large caliber vessel, LAD with ectasia, large-caliber vessel with high-grade moderate to large size diagonal ostial lesion. Left circumflex ectatic vessel without significant stenosis. RCA large caliber, ectatic tortuous vessel with high-grade distal 90% eccentric calcified stenosis found to be the culprit. Underwent PCI to distal RCA with stent placement. As discussed with him he should not discontinue unless done by provider is DAPT, continue statin, beta-bernard, continue to optimize blood pressure control, follow-up with primary provider for further optimization of cardiovascular structures including discussion of weight loss options, and return for follow-up with cardiology for further arrangements for staged procedure for revascularization of LAD ostial lesion. Physical Exam Narrative: He is awake and alert, doing well without chest pain or pressure, has discussed plans with cardiology and feels ready to discharge home once cleared by cardiology. Const: COMMON NORMALS: patient oriented x3 and alert GENERAL APPEARANCE: cooperative ORIENTATION/CONSCIOUSNESS: Yes awake HENMT: COMMON NORMALS: oropharynx normal Neck/C-Spine: COMMON NORMALS: no JVD Resp: COMMON NORMALS: normal respiratory effort and clear to auscultation bilaterally AUSCULTATION: clear to auscultation bilaterally Cardio: COMMON NORMALS: no JVD, regular rhythm, S1 normal heart sound present, S2 normal heart sound present and No murmurs present (Cardio) RHYTHM: regular rhythm HEART SOUNDS: S1 normal heart sound present and S2 normal heart sound present GI: COMMON NORMALS: Normal to inspection, nondistended, normoactive bowel sounds present, Soft to palpation and non-tender PALPATION: Yes Soft to palpation Extremity: COMMON NORMALS: no joint enlargement and no pedal edema NARRATIVE EXTREMITY EXAM: Right wrist dressing. No bleeding or bruising. Hand is well-perfused, without cyanosis or mottling. Neuro: COMMON NORMALS: patient oriented x3 and moves all extremities SENSORIUM/ORIENTATION: Yes alert Skin: COMMON NORMALS: no rashes or lesions noted GENERAL SKIN EXAM: no rashes or lesions noted Discharge Data Studies Completed and Pending Completed Studies During Hospitalization Category Date Time Status CTA chest [CT angio chest PE protcl [id number]] Routine Cat Scan 11/03/24 13:37 Completed XR chest 1V portable [id number] Stat Exams 11/02/24 22:08 Completed NM suzanne perf SPECT r/s* [id number] Routine Nuc Med 11/03/24 01:08 Completed CV. echo limited [id number] Stat Ultrasound 11/03/24 01:06 Completed Pending at discharge Category Date Time Status [employer] request for service Routine Exams 11/04/24 05:34 Taken Sestamibi Stress Test Request Routine Exams 11/04/24 06:00 Ordered Radiology Impressions Chest X-Ray 11/02/24 22:08 IMPRESSION: No acute findings. Chest CTA 11/03/24 13:37 IMPRESSION: No acute intrathoracic pathology. Laboratory Results WBC 6.99 10^3/uL (3.29-11.43) 11/05/24 02:24 RBC 3.58 10^6/uL (3.85-5.65) L 11/05/24 02:24 Hgb 10.60 g/dL (11.27-16.99) L 11/05/24 02:24 Hct 32.6 % (37-53) L 11/05/24 02:24 MCV 91.1 fl (82-101) 11/05/24 02:24 MCH 29.6 pg (27-33) 11/05/24 02:24 MCHC 32.5 g/dL (30-55) 11/05/24 02:24 RDW 16.8 % (12.1-15.1) H 11/05/24 02:24 Plt Count 201 10^3/cmm (157-399) 11/05/24 02:24 MPV 9.7 fL (7.4-10.4) 11/05/24 02:24 Neut % (Auto) 68.6 % 11/05/24 02:24 Lymph % (Auto) 17.9 % 11/05/24 02:24 [place] % (Auto) 9.4 % 11/05/24 02:24 Eos % (Auto) 3.1 % 11/05/24 02:24 Baso % (Auto) 0.7 % 11/05/24 02:24 Neut # (Auto) 4.79 10^3/uL (1.8-7.7) 11/05/24 02:24 Lymph # (Auto) 1.3 10^3/uL (0.8-4.8) 11/05/24 02:24 [place] # (Auto) 0.7 10^3/uL (0.2-0.9) 11/05/24 02:24 Eos # (Auto) 0.2 10^3/uL (0.0-0.8) 11/05/24 02:24 Baso # (Auto) 0.1 10^3/uL (0.0-0.1) 11/05/24 02:24 Nucleated RBC % (auto) 0 % 11/05/24 02:24 Nucleated RBCs # 0.0 /100WBC 11/05/24 02:24 APTT 38.3 SECONDS (23.9-36.7) H 11/04/24 03:57 D-Dimer 1.20 ug/mLFEU (0-0.59) H 11/03/24 04:36 Sodium 134 mmol/L (136-145) L 11/05/24 02:24 Potassium 3.6 mmol/L (3.5-5.1) 11/05/24 02:24 Chloride 98 mmol/L (98-107) 11/05/24 02:24 Carbon Dioxide 23 mmol/L (22-29) 11/05/24 02:24 Anion Gap 16.6 (5-19) 11/05/24 02:24 BUN 12 mg/dL (6-20) 11/05/24 02:24 Creatinine 1.3 mg/dL (0.7-1.2) H 11/05/24 02:24 GFR Calculation 56.9 mL/min (90-130) L 11/05/24 02:24 Glucose 106 mg/dL (65-115) 11/05/24 02:24 Estimat Average Glucose 148 11/02/24 22:26 Hemoglobin A1c 6.8 % (4.0-6.0) H 11/02/24 22:26 Calculated Osmolality 278 mOsm/kg (285-295) L 11/05/24 02:24 Calcium 9.2 mg/dL (8.5-10.5) 11/05/24 02:24 Total Bilirubin 0.7 mg/dL (0.15-1.2) 11/02/24 22:26 AST 83 U/L (0-40) H 11/02/24 22:26 ALT 35 U/L (0-41) 11/02/24 22:26 Alkaline Phosphatase 74 U/L (40-130) 11/02/24 22:26 Troponin T Baseline 20 ng/L (0-15) H 11/02/24 22:26 Troponin T 120 Minute 20.62 ng/L (0-15) H 11/02/24 23:47 Delta Troponin T 0.62 ABS# (0-10) 11/02/24 23:47 Troponin T Hi Sens 6Hr 38.78 ng/L (0-15) H 11/03/24 03:27 Troponin T Hi Sens 6Hr Delta 18.78 ng/L (0-12) H* 11/03/24 03:27 NT-Pro-B Natriuret Pep 380 pg/mL (0-125) H 11/02/24 22:26 Total Protein 7.6 g/dL (6.6-8.7) 11/02/24 22:26 Albumin 3.5 g/dL (3.5-5.2) 11/02/24 22:26 Globulin 4.1 g/dL (1.3-4.6) 11/02/24 22:26 Triglycerides 182 mg/dL (0-150) H 11/02/24 22:26 Cholesterol 241 mg/dL (0-200) H 11/02/24 22:26 LDL Cholesterol, Calc 185 mg/dL (50-129) H 11/02/24 22:26 HDL Cholesterol 20 mg/dL (60-100) L 11/02/24 22:26 LDL/HDL Ratio 9.25 RATIO (0.00-3.22) H 11/02/24 22:26 Cholesterol/HDL Ratio 12.05 mg/dL (1.0-5.00) H 11/02/24 22:26 Coronavirus (PCR) Negative (Negative) 11/03/24 15:23 Influenza A (PCR) Negative (Negative) 11/03/24 15:23 Influenza Type B (PCR) Negative (Negative) 11/03/24 15:23 RSV (PCR) Negative (Negative) 11/03/24 15:23 Vitals Last Vital Signs Temp 97.8 F 11/05/24 11:47 Pulse 68 11/05/24 13:46 Resp 16 11/05/24 08:25 BP 125/81 11/05/24 13:46 Pulse Ox 92 11/05/24 13:46 O2 Del Method Room Air 11/05/24 08:25 Discharge Plan Discharge Patient Disposition: Home Condition: Stable Prescriptions: New atorvastatin 40 mg Tablet 80 mg PO BEDTIME Qty: 90 0RF clopidogrel 75 mg Tablet 75 mg PO DAILY Qty: 90 0RF aspirin 81 mg Tablet,Delayed Release (Dr/Ec) 81 mg PO DAILY Qty: 90 0RF Continued fluticasone propionate [Flonase Allergy Relief] 50 mcg/actuation spray,suspension 1 spray intranasal BID PRN (Reason: nasal congestion) Qty: 16 0RF Rx Instructions: administer into each nostril (DME) Nebulizer machine with mask and tubing See Rx Instructions .Route .MEDSUPPLY Qty: 1 0RF Rx Instructions: As directed every 4-6 hours as needed citalopram 20 mg tablet 40 mg PO DAILY 30 Days Qty: 60 1RF amlodipine 2.5 mg tablet 2.5 mg PO DAILY Qty: 30 6RF bupropion HCl [Wellbutrin XL] 150 mg tablet extended release 24 hr 150 mg PO QAM Qty: 30 6RF metoprolol tartrate 100 mg tablet See Rx Instructions .ROUTE .COMPLEX Qty: 180 3RF Dose Instruction: TAKE 1 TABLET BY MOUTH TWICE A DAY FOR HIGH BLOOD PRESSURE Rx Instructions: TAKE 1 TABLET BY MOUTH TWICE A DAY FOR HIGH BLOOD PRESSURE losartan 100 mg tablet 100 mg PO DAILY Discharge Orders: Discharge Order (Routine); Ordered 11/05/24 Ordered By: Jovan Anthony Referrals: Tiffanie Dallas NP [Nurse Practitioner] - 11/22/24 8:30 am () Walker Sarabia MD [Primary Care Provider] - 11/15/24 10:00 am Discharge Diet: Cardiac Discharge Activity: Increase activity as tolerated and Limit activity as instructed Patient Instructions: Aspirin (By mouth), Atorvastatin (By mouth), Clopidogrel (By mouth), Coronary Angioplasty (DC), Cardiac Rehabilitation (DC), Coronary Intravascular Stent Placement (DC), Chest Pain Stoplight, Opioid Safety, Post Angiogram Home Care Instructions, Post Heart Attack Stoplight Activity Restrictions/Additional Instructions: Continue to work on optimizing cardiovascular risk factors, monitor blood pressures and optimizing hypertension control as discussed. Include 150 minutes moderate exercise each week as discussed. Work with your primary provider regarding options for weight loss. As discussed, seek medical attention in case of any pulsatile mass, bleeding, pain at the access site in the right wrist, or pale or blue discoloration of the hand, hand weakness, or any other concerning symptoms. Follow-up with cardiology for reassessment and planning of the staged intervention procedure for additional stent. Seek medical attention in case of any worsening or new concerning symptoms. Discharge Attestations Time Spent in Discharge Care*: greater than 30 min Status at Discharge: Cognitive status at discharge: cognitively intact, Behavioral status at discharge: cooperative, Quality Metrics Clinical Quality Measures [ Acute Myocardial Infaction { Clinical Trial Participant: No; Contraindication to aspirin: None; Aspirin prescribed; Contraindication to statin: None; Statin prescribed; Contraindication to PCI: None; PCI performed;}] Coding Level of Care Code 30472 Total time (in minutes) for Discharge: 45 Diagnoses Coronary artery disease of [place] artery of [place] heart with stable angina pectoris I25.118 Coronary Disease-Associated Artery/Lesion type: [place] artery [place] vs. transplanted heart: [place] heart Associated angina: with stable angina Primary hypertension I10 Hypertension type: primary hypertension Hyperlipidemia LDL goal <70 E78.5
== END 2024-11-05 15:01 | disposition home or self-care (01) ==
LOC: ER 11-03 00:47 → ER IP 11-03 01:38 → CSU 11-03 08:04
PROVIDERS: Internal Medicine Cardiovascular Disease; Nurse Practitioner Family; Admitting Provider Internal Medicine; Emergency Provider Emergency Medicine; PCP Family Medicine; Visit Provider Internal Medicine
DX: I25.118 Atherosclerotic heart disease of native coronary artery with other forms of angina pectoris (principal); I10 Essential (primary) hypertension; Z79.899 Other long term (current) drug therapy; F32.9 Major depressive disorder, single episode, unspecified; M35.3 Polymyalgia rheumatica; K21.9 Gastro-esophageal reflux disease without esophagitis; J45.909 Unspecified asthma, uncomplicated; F41.1 Generalized anxiety disorder
CPT/HCPCS: 12345; 36415; 71045; 71275; 78452; 80048; 80053; 80061; 83036; 83880; 84484; 85025; 85347; 85378; 85730; 87637; 92978; 93005; 93017; 93308; 93458; 94640; 96372; 96374; 96375; 96376; 99152; 99153; 99285; A9500; C1725; C1753; C1760; C1769; C1874; C1887; C1894; C9600; G0269; G0378; J0282; J1644; J1650; J2060; J2250; J2270; J2785; J3010; J3490; J7030; Q0163; Q9967

== ENCOUNTER → 2024-11-22 08:43 | Outpatient (BNVA) | payer OTHER, SELFPAY | PROVIDERS: PCP Family Medicine; Visit Provider Nurse Practitioner Family | DX: R07.9 Chest pain, unspecified (principal); I10 Essential (primary) hypertension | CPT/HCPCS: 36415; 80053; 82550; 85025; 93005 ==

== ENCOUNTER 2024-12-21 04:05 | Observation (INO) | payer OTHER, SELFPAY ==
[2024-12-21] VITALS (21 sets, daily range): BP systolic 138–180; BP diastolic 77–101; PULSE 61–86; RESP 15–24; TEMP 36.3–37.1; O2SAT 94–98; BMI 31.7
--- NOTE | 2024-12-21 04:11 | XRR_ITS ---
PROCEDURE INFORMATION: Exam: XR Chest Exam date and time: 12/21/2024 4:15 AM Age: 59 years old Clinical indication: Chest pressure and chest wall pain; Additional info: Chest pain TECHNIQUE: Imaging protocol: Radiologic exam of the chest. Views: 1 view. COMPARISON: CT angio chest PE protcl [id number] 08/23/2025 14:16 FINDINGS: Lungs: Unremarkable. No consolidation. Pleural spaces: Unremarkable. No pleural effusion. No pneumothorax. Heart/Mediastinum: Stable cardiomediastinal silhouette. Bones/joints: Degenerative changes of the spine seen. XR/XR chest 1V portable [id number] IMPRESSION: No acute findings.
--- NOTE | 2024-12-21 04:11 | ECG_ITS ---
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 Measurements Intervals Max Rate: 71 P: 30 UT: 204 QRS: -11 QRSD: 101 T: 55 QT: 402 QTc: 437 Interpretive Statements SINUS RHYTHM INCOMPLETE RIGHT BUNDLE BRANCH BLOCK [90+ ms QRS DURATION, TERMINAL R IN V1/V2, 40+ ms S IN I/aVL/V4/V5/V6] Compared to ECG 11/22/2024 08:51:40 Incomplete right bundle-branch block now present Electronically Signed On 12-25-2024 18:31:28 CDT by Isak Boyce M.D. [email or web address]
--- NOTE | 2024-12-21 04:15 | W.ED.CHESTPA ---
HPI - Chest Pain General: Chief Complaint: Chest Pain Stated Complaint: Chest Pains Time Seen by Provider: 12/21/24 04:10 History of Present Illness: 59-year-old male with history of coronary artery disease status post stenting, hypertension, and depression who presents the emergency room with chest pain. This started about 5 hours ago. Improved with nitro but came back. He is currently having left central chest pain. No cough. No fevers. No vomiting. He says that he follows with Dr. Lutz and they were planning on doing a cardiac cath in the near future. Related Data Home Medications ?Medication ?Instructions ?Recorded ?Confirmed losartan 100 mg tablet 100 mg PO DAILY 11/03/24 11/30/24 Previous Rx's ?Medication ?Instructions ?Recorded fluticasone propionate 50 1 spray intranasal BID PRN nasal 10/24/22 mcg/actuation nasal congestion #16 grams spray,suspension (Flonase Allergy Relief) Nebulizer machine with mask and #1 ea 04/11/23 tubing citalopram 20 mg tablet 40 mg (2 x 20 mg) PO DAILY 30 days 03/04/24 #60 tabs metoprolol tartrate 100 mg tablet See Rx Instructions .Route 07/21/24 .COMPLEX #180 tabs amlodipine 2.5 mg tablet 2.5 mg PO DAILY #30 tabs 08/24/24 bupropion HCl 150 mg 24 hr tablet, 150 mg PO QAM #30 tabs 08/24/24 extended release (Wellbutrin XL) aspirin 81 mg tablet,delayed 81 mg PO DAILY #90 tabs 11/05/24 release atorvastatin 40 mg tablet 80 mg (2 x 40 mg) PO BEDTIME #90 11/05/24 tabs clopidogrel 75 mg tablet 75 mg PO DAILY #90 tabs 11/05/24 nitroglycerin 0.4 mg sublingual 0.4 mg sublingual Q5M PRN chest 11/22/24 tablet pain #20 tabs Allergies Allergy/AdvReac Type Severity Reaction Status Date / Time No Known Allergies Allergy Verified 12/21/24 04:12 Review of Systems Narrative: Constitutional symptoms: Negative except as documented in HPI. Skin symptoms: Negative except as documented in HPI. Eye symptoms: Negative except as documented in HPI. ENMT symptoms: Negative except as documented in HPI. Respiratory symptoms: Negative except as documented in HPI. Cardiovascular symptoms: Negative except as documented in HPI. Gastrointestinal symptoms: Negative except as documented in HPI. Genitourinary symptoms: Negative except as documented in HPI. Musculoskeletal symptoms: Negative except as documented in HPI. Neurologic symptoms: Negative except as documented in HPI. Psychiatric symptoms: Negative except as documented in HPI. Endocrine symptoms: Negative except as documented in HPI. PFSH ED PFSH: Medical History Psychiatric care Hypertension Chest pain Immunization counseling High risk medication use HTN (hypertension) Major depressive disorder Chronic steroid use Polymyalgia rheumatica Asthma Surgical History Hx of cataract surgery 08/26/23, 09/09/23 - Dr Smith History of umbilical hernia repair (01/26/20) H/O esophagogastroduodenoscopy Status post colonoscopy History of nasal surgery H/O knee surgery H/O hand surgery History of appendectomy Family History Father Lung disease Asthma Denies family history of Diabetes Clotting disorder Dementia Chronic kidney disease (CKD) Social History Smoking and tobacco/nicotine status: never used tobacco/nicotine Alcohol intake: never Substance/Drug Use: never Lives independently: Yes Household members: spouse Marital status: Current occupational status: employed Current occupational exposures/hazards: Yes Do you think of yourself as: Straight/Heterosexual Current gender identity: Male Physical Exam Narrative: EXAM NARRATIVE: General: Alert, no acute distress. Skin: Warm, dry. Head: Normocephalic, atraumatic. Neck: Supple, trachea midline. Eye: Extraocular movements are intact. Ears, nose, mouth and throat: mucosa moist. Cardiovascular: Regular, Normal peripheral perfusion. Respiratory: Lungs are clear to auscultation, respirations are non-labored, breath sounds are equal, Symmetrical chest wall expansion. Gastrointestinal: Soft, Nontender, Non distended Musculoskeletal: Normal ROM, no deformity. Neurological: Alert and oriented, No focal neurological deficit observed. Psychiatric: Cooperative, appropriate mood & affect. Course Vital Signs: Vital signs: Vital Signs Temperature 98.2 F 12/21/24 04:09 Pulse Rate 67 12/21/24 04:57 Respiratory Rate 18 12/21/24 04:57 Blood Pressure 138/89 12/21/24 04:57 Pulse Oximetry 96 12/21/24 04:57 Oxygen Delivery Me thod Room Air 12/21/24 04:09 MDM - Chest Pain Medical Decision Making Differential diagnosis for patient with chest pain includes but is not limited to and based on the above HPI, review of systems and physical exam: Pneumonia. unstable angina. angina. Acute coronary syndrome / [place]. Pulmonary embolism. Costochondritis / musculoskeletal. Pleurisy. Pericarditis. Esophageal spasm. Pancreatis. Cholecystitis. Orders placed to evaluate differential diagnosis based on the above differential, HPI and physical exam EKG: Time 4:08 AM. Rate 71. Normal sinus rhythm, No ST-T changes, no ectopy, normal PA & QRS intervals, This was reviewed and interpreted by myself the ER physician at 4:10 AM. Chest x-ray: Stable cardiomegaly. No acute process. No infiltrate. No pneumothorax. Films were interpreted by myself the emergency room provider and pending final radiology review.. Lab Review: Laboratory results were reviewed and interpreted by myself the emergency room physician. No leukocytosis. No anemia. Initial troponin is only 12. HEART Pathway for Early Discharge in Acute Chest Pain from [employer] on 12/21/2024 All calculations should be rechecked by clinician prior to use RESULT SUMMARY: 5 points HEART Pathway Score High risk 12-65% 30-day MACE Admit to hospital or observation. Further testing indicated. INPUTS: History ?> 1 = Moderately suspicious EKG ?> 1 = Non-specific repolarization disturbance Age ?> 1 = 45-64 Risk factors ?> 2 = >= risk factors or history of atherosclerotic disease Initial troponin ?> 0 = <=ormal limit I reviewed the patient's medical record. Reexamination: Patient remained stable. No increased work of breathing. No altered mental status. No focal motor deficits. Consultation: I spoke with Dr. Leonardo who agrees to admission. Assessment and plan: Chest pain Coronary artery disease -I discussed the patient with the hospitalist on-call who is admitting the patient. - Discussed findings and plan with patient. Answered any questions. - All laboratory values were reviewed and interpreted personally by myself, the ER physician - All imaging was reviewed and interpreted personally by myself, the ER physician. - Evaluation and treatment of this problem were appropriate in the emergency setting Lab Data 12/21/24 04:14 12/21/24 04:14 Laboratory Results WBC 6.05 10^3/uL (3.29-11.43) 12/21/24 04:14 RBC 3.43 10^6/uL (3.85-5.65) L 12/21/24 04:14 Hgb 10.30 g/dL (11.27-16.99) L 12/21/24 04:14 Hct 32.2 % (37-53) L 12/21/24 04:14 MCV 93.9 fl (82-101) 12/21/24 04:14 MCH 30.0 pg (27-33) 12/21/24 04:14 MCHC 32.0 g/dL (30-55) 12/21/24 04:14 RDW 17.9 % (12.1-15.1) H 12/21/24 04:14 Plt Count 187 10^3/cmm (157-399) 12/21/24 04:14 MPV 9.5 fL (7.4-10.4) 12/21/24 04:14 Neut % (Auto) 66.6 % 12/21/24 04:14 Lymph % (Auto) 17.5 % 12/21/24 04:14 [place] % (Auto) 11.4 % 12/21/24 04:14 Eos % (Auto) 3.6 % 12/21/24 04:14 Baso % (Auto) 0.7 % 12/21/24 04:14 Neut # (Auto) 4.03 10^3/uL (1.8-7.7) 12/21/24 04:14 Lymph # (Auto) 1.1 10^3/uL (0.8-4.8) 12/21/24 04:14 [place] # (Auto) 0.7 10^3/uL (0.2-0.9) 12/21/24 04:14 Eos # (Auto) 0.2 10^3/uL (0.0-0.8) 12/21/24 04:14 Baso # (Auto) 0.0 10^3/uL (0.0-0.1) 12/21/24 04:14 Nucleated RBC % (auto) 0 % 12/21/24 04:14 Nucleated RBCs # 0.0 /100WBC 12/21/24 04:14 Sodium 137 mmol/L (136-145) 12/21/24 04:14 Potassium 3.9 mmol/L (3.5-5.1) 12/21/24 04:14 Chloride 102 mmol/L (98-107) 12/21/24 04:14 Carbon Dioxide 23 mmol/L (22-29) 12/21/24 04:14 Anion Gap 15.9 (5-19) 12/21/24 04:14 BUN 11 mg/dL (6-20) 12/21/24 04:14 Creatinine 1.2 mg/dL (0.7-1.2) 12/21/24 04:14 GFR Calculation 62.4 mL/min (90-130) L 12/21/24 04:14 Glucose 119 mg/dL (65-115) H 12/21/24 04:14 Calculated Osmolality 285 mOsm/kg (285-295) 12/21/24 04:14 Calcium 9.1 mg/dL (8.5-10.5) 12/21/24 04:14 Total Bilirubin 0.6 mg/dL (0.15-1.2) 12/21/24 04:14 AST 67 U/L (0-40) H 12/21/24 04:14 ALT 46 U/L (0-41) H 12/21/24 04:14 Alkaline Phosphatase 82 U/L (40-130) 12/21/24 04:14 Troponin T Baseline 12 ng/L (0-15) 12/21/24 04:14 NT-Pro-B Natriuret Pep 271 pg/mL (0-125) H 12/21/24 04:14 Total Protein 8.0 g/dL (6.6-8.7) 12/21/24 04:14 Albumin 3.6 g/dL (3.5-5.2) 12/21/24 04:14 Globulin 4.4 g/dL (1.3-4.6) 12/21/24 04:14 XR interpretation done by ED provider, pending radiology final review Clincial Decision Support The following clinical decision support tools were used to aid in care of the patient HEART Score -> History: Moderately Suspicious, EKG: Non-specific Changes, Age: 45-64 yrs, Risk Factors: >/=3 Risk Factors, Troponin: Baseline Trop <16 ng/L. Resulting HEART Score: 5. Discharge Plan Discharge Patient Disposition: Placed in Observation Clinical Impression: Chest pain, Coronary artery disease Coding Level of Care Code ED [employer] Operator for Salvador Obregon
[2024-12-21 04:22] LABS: Basophils % 0.7 %; Eosinophils # 0.2 10^3/uL (0.0-0.8); Eosinophils % 3.6 %; Hematocrit 32.2 % (37-53); Lymphocytes # 1.1 10^3/uL (0.8-4.8); Lymphocytes % 17.5 %; Mean Corpuscular Volume 93.9 fl (82-101); Mean Platelet Volume 9.5 fL (7.4-10.4); Monocytes # 0.7 10^3/uL (0.2-0.9); Monocytes % 11.4 %; Neutrophils # 4.03 10^3/uL (1.8-7.7); Neutrophils % 66.6 %; Nucleated Red Blood Cells % 0 %; Platelet Count 187 10^3/cmm (157-399); Red Blood Count 3.43 10^6/uL (3.85-5.65); Red Cell Distribution Width 17.9 % (12.1-15.1); White Blood Count 6.05 10^3/uL (3.29-11.43)
[2024-12-21 04:43] LABS: Troponin(5th) Baseline 12 ng/L (0-15)
[2024-12-21 04:52] LABS: Alanine Aminotransferase 46 U/L (0-41); Albumin Level 3.6 g/dL (3.5-5.2); Alkaline Phosphatase 82 U/L (40-130); Anion Gap 15.9 (5-19); Aspartate Amino Transferase 67 U/L (0-40); Blood Urea Nitrogen 11 mg/dL (6-20); Calcium 9.1 mg/dL (8.5-10.5); Carbon Dioxide 23 mmol/L (22-29); Chloride 102 mmol/L (98-107); Creatinine Clr Calc Pharmacy 78.2244; Globulin 4.4 g/dL (1.3-4.6); Glomerular Filtration Rate 62.4 mL/min (90-130); Glucose 119 mg/dL (65-115); NT Pro B Type Natriuretic Pept 271 pg/mL (0-125); Osmolality Calculated 285 mOsm/kg (285-295); Potassium 3.9 mmol/L (3.5-5.1); Sodium 137 mmol/L (136-145); Total Bilirubin 0.6 mg/dL (0.15-1.2)
[2024-12-21 06:09] LABS: Troponin 5 2HR 10.93 ng/L (0-15); Troponin 5 2HR Delta -1.07 ABS# (0-10)
--- NOTE | 2024-12-21 06:11 | ECG_ITS ---
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
[2024-12-21] MEDS: HYDROmorphone 0.5 MG/0.5 ML INJ 1 MG IVP (06:30)
[2024-12-21] MEDS: aspirin 325 mg Tablet PO (06:30)
--- NOTE | 2024-12-21 09:59 | ECG_ITS ---
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
[2024-12-21 10:39] LABS: Troponin 5 6HR 11.25 ng/L (0-15)
[2024-12-21 10:52] LABS: Troponin 5 6HR Delta -0.75 ng/L (0-12)
--- NOTE | 2024-12-21 10:57 | P.CONIM_ITS ---
<Statement entered by Isak Boyce M.D - 12/22/24 10:58> Patient was evaluated and cared for in conjunction with an advanced practice practitioner.? I personally examined the patient and reviewed the chart and all pertinent data including imaging, telemetry, and laboratory results.? I discussed the patient in detail with the advanced practice practitioner.? Please see? their note for complete consult note, testing results and agreed upon plan of care for the patient. Patient's chest pain is atypical. Had recent PCI of RCA. Has ostial diagonal artery disease. This area was not abnormal on the stress test. At this time we will continue medical management. Chest pain could be related to uncontrolled hypertension. no significant troponin elevation. EKG not showing ischemic changes. We will uptitrate antihypertensive regimen to better control hypertension and start long acting nitrates. Coronary artery disease can be managed as outpatient by primary movement education specialist. GENERAL: Patient is alert, awake and oriented x3. HEART: Regular S1 and S2 LUNGS: Clear to auscultate bilaterally. CENTRAL NERVOUS SYSTEM: Grossly nonfocal. EXTREMITIES: Lower extremities without edema bilaterally. Providers/Reason For Consult 2 Consulting Physician/Specialty*: Dr. Boyce Reason for Consult*: Chest pain Requesting Physician: Dr. tSoddard Attending Physician: Selena Espino MD Primary Care Provider: Walker Sarabia MD History of Present Illness History of Present Illness Madi Lowe is a 59 year old male who is well-known to our service. On November 04 he had an RCA stent and an 85% stenosis in the diagonal artery that was going to be fixed at a later stage procedure scheduled for this Friday. Prior to and following the intervention he had experienced episodes of chest pain. He states that his current episode of chest pain has been going on for 5 days. He denies aggravating or relieving factors. It is left-sided chest pain. He states it is sharp in nature. He decided to come into the emergency room due to the pain did not subside. Denies any nausea or vomiting with this. Current blood pressure is elevated at 180/97. He denies any chest pain at this time. EKG with no acute changes. Troponins are negative. States he has been compliant with his aspirin and plavix. Review of Systems 2 Narrative: Consitutional: denies fever, chills, body aches, or changes in appetite, denies abnormal weight loss Eyes: Denies changes in vision Card: Denies chest pain, palpitations, irregular heart rhythm, edema, syncope, shortness of breath, orthopnea, leg pain with exertion Resp: Denies shortness of breath, denies hemoptysis, denies cough GI: denies abdominal pain, denies nausea or voimting, denies blood in stool : denies blood in urine, denies dysuria Musc: Denies extremity pain, denies limited range of motion or recent injury Skin: Denies rash, lesions, or wounds, denies changes to skin color Neuro: Denies nubmness in extremities, h/a, s/s of stroke Markus: Denies easy bruiding/bleeding Medications/Allergies Home Medications ?Medication ?Instructions ?Recorded ?Confirmed ?Last Taken ?Type fluticasone propionate 50 1 spray intranasal BID PRN n tatiana 10/24/22 12/21/24 11/09/23 Rx mcg/actuation nasal congestion #16 grams spray,suspension (Flonase Allergy Relief) citalopram 20 mg tablet 40 mg (2 x 20 mg) PO DAILY 3 0 days 03/04/24 12/21/24 11/02/24 Rx #60 tabs amlodipine 2.5 mg tablet 2.5 mg PO DAILY #30 tabs 12/1312/21/24 12/20/24 Rx bupropion HCl 150 mg 24 hr tablet, 150 mg PO QAM #30 t abs 08/24/24 12/21/24 12/20/24 Rx extended release (Wellbutrin XL) losartan 100 mg tablet 100 mg PO DAILY 11/03/2410/1612/20/24 History aspirin 81 mg tablet,delayed 81 mg PO DAILY #90 tabs 0 11/05/24 12/21/24 12/20/24 Rx release atorvastatin 40 mg tablet 80 mg (2 x 40 mg) PO BEDTIME #90 11/05/24 12/21/24 12/20/24 Rx tabs clopidogrel 75 mg tablet 75 mg PO DAILY #90 tabs 10/2312/21/24 12/20/24 Rx nitroglycerin 0.4 mg sublingual 0.4 mg sublingual Q5M PRN chest 11/22/24 12/21/24 Unknown Rx tablet pain #20 tabs metoprolol tartrate 100 mg tablet 100 mg PO BID 12/21/24 12/20/24 History Allergies Allergy/AdvReac Type Severity Reaction Status Date / Time No Known Allergies Allergy Verified 12/21/24 04:12 Current Medications Generic Name Dose Route Start Last Admin Trade Name Freq PRN Reason Stop Dose Admin Hydromorphone HCl 1 mg 12/21/24 06:23 12/21/24 06:30 Hydromorphone 0.5 Mg/0.5 Ml Inj IVP 1 mg Q4H PRN Administration Pain PFSH Acute 2 PFSH: Medical History Psychiatric care Hypertension Chest pain Immunization counseling High risk medication use HTN (hypertension) Major depressive disorder Chronic steroid use Polymyalgia rheumatica Asthma Surgical History Hx of cataract surgery 08/26/23, 09/09/23 - Dr Smith History of umbilical hernia repair (01/26/20) H/O esophagogastroduodenoscopy Status post colonoscopy History of nasal surgery H/O knee surgery H/O hand surgery History of appendectomy Family History Father Lung disease Asthma Denies family history of Diabetes Clotting disorder Dementia Chronic kidney disease (CKD) Social History Smoking and tobacco/nicotine status: never used tobacco/nicotine Alcohol intake: never Substance/Drug Use: never Lives independently: Yes Household members: spouse Marital status: Current occupational status: employed Current occupational exposures/hazards: Yes Do you think of yourself as: Straight/Heterosexual Current gender identity: Male Vitals/I&O/Wt Last Vital Signs Temp 97.8 F 12/21/24 08:02 Pulse 73 12/21/24 08:02 Resp 17 12/21/24 08:02 BP 180/97 12/21/24 08:02 Pulse Ox 96 12/21/24 08:02 O2 Del Method Room Air 12/21/24 08:02 12/20/24 12/21/24 12/21/24 22:59 06:59 14:59 Intake Total 0 / 0 Balance 0 / 0 Weight last 48 hrs Weight 215 lb Weight 215 lb Physical Exam 2 Narrative: General: No apparent distress, healthy appearing, well nourished HENMT: normoceophalic Neck: No carotid bruit bilaterally Muskuloskeletal: Full ROM Lymphatic: no lymphedema noted Respiratory: Normal respiratory effort, clear to auscultation bilaterally throughout all lung perez, no use of accessory muscles Cardio: No JVD, regular rate, regular rhythm, S1 S2 normal, no murmurs, peripheral pulses 2+ radial palpated bilaterally GI: Normal to inspection, nondistended Extremities: Full ROM, normal, normal capillary refill, no cyanosis or edema Neuro: Alert and oriented x4, no focal motor deficits Psych: Affect normal, denies suicidal ideation, mental status grossly normal Skin: No rashes or lesions noted, no wounds Data 12/21/24 04:14 12/21/24 04:14 A&P Assessment and plan (1) Chest pain: (2) Hypertension: Qualifiers: Hypertension type: primary hypertension Qualified Code(s): I10 - Essential (primary) hypertension (3) CAD (coronary artery disease): Qualifiers: Coronary Disease-Associated Artery/Lesion type: [place] artery [place] vs. transplanted heart: [place] heart Associated angina: with stable angina Q ualified Code(s): I25.118 - Atherosclerotic heart disease of [place] coronary artery with other forms of angina pectoris Plan At this time patient has had chest pain consistently for 5 days and troponin is not elevated. He is having no chest pain at this time. This could be related to his hypertension. At this time we recommend restarting home medications and making sure blood pressure resolves. His symptoms are very atypical although he does have underlying coronary disease. Dr. Boyce did review cath films. Stress test did not show any abnormalities of the area of the circ. Would recommend for now, observing and managing hypertension and monitoring for any acute changes. Thank you for allowing us to care for this very pleasant patient. PDMP PDMP Reviewed: Not Reviewed Coding Level of Care Code Acute Code for Chg Fwd Diagnoses Chest pain R07.9 Primary hypertension I10 Hypertension type: primary hypertension Coronary artery disease of [place] artery of [place] heart with stable angina pectoris I25.118 Coronary Disease-Associated Artery/Lesion type: [place] artery [place] vs. transplanted heart: [place] heart Associated angina: with stable angina
--- NOTE | 2024-12-21 12:39 | PM.HP ---
Providers/Chief Complaint Admitting Physician: Venita Leonardo MD Primary Care Provider: Walker Sarabia MD Chief Complaint: Chest Pains History of Present Illness Madi Lowe is a 59 year old male with a recent history of placement of RCA stent on November 04 and known 85% stenosis in the diagonal which was planned for staged intervention this upcoming Friday presented to the hospital with chest pain. Patient states the pain is located in the left side of his chest around the second intercostal space. It appears to be worse with changing position and on walking however states that it is pretty much constantly present. Last night he took some nitro and that appeared to have alleviated the pain. Additionally he had an episode of intense sweating overnight. No nausea until being given Dilaudid here in the hospital. This is resolved with Zofran currently. States he has been very short of breath over the past few weeks however this improved after his most recent intervention on November 04, 2024. States he still has some degree of orthopnea however this is better compared to in October. Denies any fever. Denies any coughing. Denies any sputum production. Review of Systems General: Reports: 10 or more systems reviewed and unremarkable except in HPI and below Const: Denies: fever(s), chills or body aches Eyes: Denies: change in vision, blurry vision or photophobia ENMT: Reports: hoarseness; Denies: throat pain, enlarged tonsils, odynophagia or nasal congestion Card: Denies: chest pain, palpitations, irregular heart rhythm, edema, swelling of feet/ankles, lightheadedness, pre-syncope, dyspnea on exertion or orthopnea Resp: Denies: dyspnea, productive cough, non-productive cough, wheezing, stridor, pain on inspiration, change in phlegm color, hemoptysis or chest congestion GI: Denies: abdominal pain, nausea, vomiting, hematemesis, coffee ground emesis, dysphagia, heartburn, diarrhea, constipation, GI cramping, change in stool character, hematochezia or melena : Denies: flank pain, dysuria, urinary frequency, urinary urgency, urinary hesitancy or hematuria Musc: Denies: neck pain, back pain, extremity pain, joint swelling, joint warmth or deformity Neuro: Denies: headache(s), numbness in extremities, weakness in extremities, sensory changes, difficulty walking, frequent falls, dizziness, vertigo, behavioral changes, Slurred speech present or seizure-like activity Psych: Denies: anxiety, depression, suicidal ideation or homicidal ideation Endo: Denies: polyuria, polydipsia, tired all the time, cold intolerance or hot flashes Markus/Lymph: Denies: easy bruising or easy bleeding Medications/Allergies Home Medications ?Medication ?Instructions ?Recorded ?Confirmed ?Last Taken ?Type fluticasone propionate 50 1 spray intranasal BID PRN nasal 10/24/22 12/21/24 11/09/23 Rx mcg/actuation nasal congestion #16 grams spray,suspension (Flonase Allergy Relief) citalopram 20 mg tablet 40 mg (2 x 20 mg) PO DAILY 30 days 03/04/24 12/21/24 11/02/24 Rx #60 tabs amlodipine 2.5 mg tablet 2.5 mg PO DAILY #30 tabs 08/24/24 12/21/24 12/20/24 Rx bupropion HCl 150 mg 24 hr tablet, 150 mg PO QAM #30 tabs 08/24/24 12/21/24 12/20/24 Rx extended release (Wellbutrin XL) losartan 100 mg tablet 100 mg PO DAILY 11/03/24 12/21/24 12/20/24 History aspirin 81 mg tablet,delayed 81 mg PO DAILY #90 tabs 11/05/24 12/21/24 12/20/24 Rx release atorvastatin 40 mg tablet 80 mg (2 x 40 mg) PO BEDTIME #90 11/05/24 12/21/24 12/20/24 Rx tabs clopidogrel 75 mg tablet 75 mg PO DAILY #90 tabs 11/05/24 12/21/24 12/20/24 Rx nitroglycerin 0.4 mg sublingual 0.4 mg sublingual Q5M PRN chest 11/22/24 12/21/24 Unknown Rx tablet pain #20 tabs metoprolol tartrate 100 mg tablet 100 mg PO BID 12/21/24 12/21/24 12/20/24 History Allergies Allergy/AdvReac Type Severity Reaction Status Date / Time No Known Allergies Allergy Verified 12/21/24 04:12 PFSH Acute PFSH: Medical History Psychiatric care Hypertension Chest pain Immunization counseling High risk medication use HTN (hypertension) Major depressive disorder Chronic steroid use Polymyalgia rheumatica Asthma Surgical History Hx of cataract surgery 08/26/23, 09/09/23 - Dr Smith History of umbilical hernia repair (01/26/20) H/O esophagogastroduodenoscopy Status post colonoscopy History of nasal surgery H/O knee surgery H/O hand surgery History of appendectomy Family History Father Lung disease Asthma Denies family history of Diabetes Clotting disorder Dementia Chronic kidney disease (CKD) Social History Smoking and tobacco/nicotine status: never used tobacco/nicotine Alcohol intake: never Substance/Drug Use: never Lives independently: Yes Household members: spouse Marital status: Current occupational status: employed Current occupational exposures/hazards: Yes Do you think of yourself as: Straight/Heterosexual Current gender identity: Male Vitals/I&O/Wt Last Vital Signs Temp 97.4 F L 12/21/24 12:00 Pulse 61 12/21/24 12:00 Resp 16 12/21/24 12:00 BP 175/90 12/21/24 12:00 Pulse Ox 97 12/21/24 12:00 O2 Del Method Room Air 12/21/24 12:00 12/20/24 12/21/24 12/21/24 22:59 06:59 14:59 Intake Total 0 / 0 Balance 0 / 0 Weight last 48 hrs Weight 97.522 kg Weight 97.522 kg Physical Exam Narrative: General: No acute distress, AO x3 HEENT: PERRLA, pupils bilaterally equal and reactive, pallors not present Chest: Normal vesicular breath sounds, no added sounds, equal good air entry bilaterally CVS: S1-S2 regular, no murmurs, no tachycardia, no gallops, no rubs Abdomen: Soft, nontender, no organomegaly, bowel sounds present Neuro: No focal deficits, no facial deformity, AO x3, power 5/5 in all limbs Data 12/21/24 04:14 12/21/24 04:14 Other Labs: Radiology Impressions Chest X-Ray 12/21/24 04:11 IMPRESSION: No acute findings. Laboratory Results WBC 6.05 10^3/uL (3.29-11.43) 12/21/24 04:14 RBC 3.43 10^6/uL (3.85-5.65) L 12/21/24 04:14 Hgb 10.30 g/dL (11.27-16.99) L 12/21/24 04:14 Hct 32.2 % (37-53) L 12/21/24 04:14 MCV 93.9 fl (82-101) 12/21/24 04:14 MCH 30.0 pg (27-33) 12/21/24 04:14 MCHC 32.0 g/dL (30-55) 12/21/24 04:14 RDW 17.9 % (12.1-15.1) H 12/21/24 04:14 Plt Count 187 10^3/cmm (157-399) 12/21/24 04:14 MPV 9.5 fL (7.4-10.4) 12/21/24 04:14 Neut % (Auto) 66.6 % 12/21/24 04:14 Lymph % (Auto) 17.5 % 12/21/24 04:14 [place] % (Auto) 11.4 % 12/21/24 04:14 Eos % (Auto) 3.6 % 12/21/24 04:14 Baso % (Auto) 0.7 % 12/21/24 04:14 Neut # (Auto) 4.03 10^3/uL (1.8-7.7) 12/21/24 04:14 Lymph # (Auto) 1.1 10^3/uL (0.8-4.8) 12/21/24 04:14 [place] # (Auto) 0.7 10^3/uL (0.2-0.9) 12/21/24 04:14 Eos # (Auto) 0.2 10^3/uL (0.0-0.8) 12/21/24 04:14 Baso # (Auto) 0.0 10^3/uL (0.0-0.1) 12/21/24 04:14 Nucleated RBC % (auto) 0 % 12/21/24 04:14 Nucleated RBCs # 0.0 /100WBC 12/21/24 04:14 D-Dimer 0.80 ug/mLFEU (0-0.59) H 12/21/24 04:14 Sodium 137 mmol/L (136-145) 12/21/24 04:14 Potassium 3.9 mmol/L (3.5-5.1) 12/21/24 04:14 Chloride 102 mmol/L (98-107) 12/21/24 04:14 Carbon Dioxide 23 mmol/L (22-29) 12/21/24 04:14 Anion Gap 15.9 (5-19) 12/21/24 04:14 BUN 11 mg/dL (6-20) 12/21/24 04:14 Creatinine 1.2 mg/dL (0.7-1.2) 12/21/24 04:14 GFR Calculation 62.4 mL/min (90-130) L 12/21/24 04:14 Glucose 119 mg/dL (65-115) H 12/21/24 04:14 Calculated Osmolality 285 mOsm/kg (285-295) 12/21/24 04:14 Calcium 9.1 mg/dL (8.5-10.5) 12/21/24 04:14 Total Bilirubin 0.5 mg/dL (0.15-1.2) 12/21/24 04:14 Total Bilirubin 0.6 mg/dL (0.15-1.2) 12/21/24 04:14 Direct Bilirubin 0.20 mg/dL (0.00-0.30) 12/21/24 04:14 AST 67 U/L (0-40) H 12/21/24 04:14 AST 70 U/L (0-40) H 12/21/24 04:14 ALT 46 U/L (0-41) H 12/21/24 04:14 ALT 48 U/L (0-41) H 12/21/24 04:14 Alkaline Phosphatase 81 U/L (40-130) 12/21/24 04:14 Alkaline Phosphatase 82 U/L (40-130) 12/21/24 04:14 Troponin T Baseline 12 ng/L (0-15) 12/21/24 04:14 Troponin T 120 Minute 10.93 ng/L (0-15) 12/21/24 05:44 Delta Troponin T -1.07 ABS# (0-10) L 12/21/24 05:44 Troponin T Hi Sens 6Hr 11.25 ng/L (0-15) 12/21/24 10:04 Troponin T Hi Sens 6Hr Delta -0.75 ng/L (0-12) L 12/21/24 10:04 NT-Pro-B Natriuret Pep 271 pg/mL (0-125) H 12/21/24 04:14 Total Protein 7.7 g/dL (6.6-8.7) 12/21/24 04:14 Total Protein 8.0 g/dL (6.6-8.7) 12/21/24 04:14 Albumin 3.6 g/dL (3.5-5.2) 12/21/24 04:14 Albumin 3.6 g/dL (3.5-5.2) 12/21/24 04:14 Globulin 4.1 g/dL (1.3-4.6) 12/21/24 04:14 Globulin 4.4 g/dL (1.3-4.6) 12/21/24 04:14 Lipase 54 U/L (13-60) 12/21/24 04:14 A&P Assessment and plan (1) Chest pain: Patient presented to the hospital today with left-sided chest pain with a recent history of coronary intervention as above. Troponin series with reassuring trend. Baseline at 12, 2 hours at 10, 6-hour at 11.25. Negative delta serially. BNP not significantly elevated. Continues to have persisting left-sided chest pain Add nitro patch 1 inch every 6 hours. If there is response to nitrates, plan transition to Imdur He is not tolerating opiates well. Resulting in nausea. Will obtain D-dimer, if elevated to proceed with CTA of the chest Appreciate cardiology team assessment. Patient is not planning for any intervention as of now. Lipase normal. LFTs mildly elevated however with normal alkaline phosphatase, less likely that pain is biliary in nature. (2) CAD (coronary artery disease): Status post recent intervention. Plan staged intervention of the diagonal Please see cardiology note for details Continue aspirin, Plavix, atorvastatin Qualifiers: Coronary Disease-Associated Artery/Lesion type: [place] artery [place] vs. transplanted heart: [place] heart Associated angina: with stable angina Qualified Code(s): I25.118 - Atherosclerotic heart disease of [place] coronary artery with other forms of angina pectoris (3) Uncontrolled hypertension: Still has some degree of orthopnea uncontrolled hypertension Continue home doses of losartan, amlodipine Add hydralazine as needed Plan dvt ppx: lovenox full code PDMP PDMP Reviewed: Not Reviewed Attestations Medical Necessity Statement*: less than 2 midnight stay currently anticipated Coding Level of Care Code Acute Code for Chg Fwd High MDM includes number and complexity of problems actively addressed during encounter, amount and/or complexity of data reviewed/ordered and described risk of complication, morbidity or mortality of management as documented Diagnoses Chest pain R07.9 Coronary artery disease of [place] artery of [place] heart with stable angina pectoris I25.118 Coronary Disease-Associated Artery/Lesion type: [place] artery [place] vs. transplanted heart: [place] heart Associated angina: with stable angina Uncontrolled hypertension I10
[2024-12-21] MEDS: ondansetron 2 mg/ML SDV 2 mL 4 MG IVP (12:59)
[2024-12-21] MEDS: enoxaparin 40 mg/0.4 mL Syringe SUBCUT (13:04)
[2024-12-21] MEDS: hyDRALAzine 20 mg/mL INJ 1 mL 10 MG IVP (13:05)
[2024-12-21] MEDS: clopidogrel 75 mg Tablet PO (13:05)
[2024-12-21] MEDS: aspirin 81 mg EC Tablet PO (13:05)
[2024-12-21 15:52] LABS: Alanine Aminotransferase 48 U/L (0-41); Albumin Level 3.6 g/dL (3.5-5.2); Alkaline Phosphatase 81 U/L (40-130); Aspartate Amino Transferase 70 U/L (0-40); Globulin 4.1 g/dL (1.3-4.6); Lipase 54 U/L (13-60); Total Bilirubin 0.5 mg/dL (0.15-1.2); Total Protein 7.7 g/dL (6.6-8.7)
--- NOTE | 2024-12-21 16:33 | CTR_ITS ---
PROCEDURE INFORMATION: Exam: CTA Chest With Contrast Exam date and time: 12/21/2024 5:43 PM Age: 59 years old Clinical indication: Other: Assess for pe TECHNIQUE: Imaging protocol: Computed tomographic angiography of the chest with contrast. Exam focused on the arteries. 3D rendering (Not supervised by radiologist): MIP and/or 3D reconstructed images were created by the technologist. Radiation optimization: All CT scans at this facility use at least one of these dose optimization techniques: automated exposure control; mA and/or kV adjustment per patient size (includes targeted exams where dose is matched to clinical indication); or iterative reconstruction. Contrast material: OMNIPAQUE 350; Contrast volume: 168 ml; Contrast route: INTRAVENOUS (IV); COMPARISON: CT angio chest PE protcl [id number] 11/03/2024 2:16 PM RADIATION DOSE METRICS: Total DLP (mGy-cm): 931.98 FINDINGS: Pulmonary arteries: Normal. No pulmonary emboli. Aorta: Calcific plaque involves the thoracic aorta and coronary arteries. The thoracic aorta is ectatic measuring up to 3.8 cm in diameter without dissection. Lungs: Minimal bibasilar subsegmental atelectasis present. Mild bibasilar interlobular septal thickening. Lungs are free of consolidation. Pleural spaces: Unremarkable. No pneumothorax. No pleural effusion. Heart: The heart is enlarged. No pericardial effusion. Lymph nodes: Unremarkable. No enlarged lymph nodes. Diaphragm: There is a mild hiatal hernia. Intraperitoneal space: The visualized portions of the upper abdomen demonstrates hepatosplenomegaly. Bones/joints: Mild degenerative changes involve the spine. No acute bony abnormality. Soft tissues: Unremarkable. CT/CT angio chest PE protcl [id number] IMPRESSION: 1. Negative exam for pulmonary embolus and aortic dissection. 2. Minimal bibasilar subsegmental atelectasis associated with mild interstitial edema. 3. Atherosclerosis including coronary artery calcification.
[2024-12-21] MEDS: nitroglycerin 1 gm/inch oint Pkt 1 INCH TOPICAL ×2 (17:05→23:21)
[2024-12-21] MEDS: metoprolol tartrate 50 mg Tablet 100 MG PO (17:07)
[2024-12-21] MEDS: pantoprazole DR 40 mg Tablet PO (17:07)
[2024-12-21] MEDS: iohexol 350 mg/mL 500 mL Btl (per mL) IV (17:56)
[2024-12-21] MEDS: atorvastatin 40 mg Tablet 80 MG PO (20:14)
[2024-12-22] VITALS (7 sets, daily range): BP systolic 120–130; BP diastolic 66–78; PULSE 68–71; RESP 13–18; TEMP 36.8–37.2; O2SAT 93–95; BMI 32.1
[2024-12-22] MEDS: nitroglycerin 1 gm/inch oint Pkt 1 INCH TOPICAL (04:28)
[2024-12-22 05:20] LABS: Basophils % 0.6 %; Eosinophils # 0.2 10^3/uL (0.0-0.8); Eosinophils % 3.3 %; Hematocrit 28.5 % (37-53); Lymphocytes # 1.1 10^3/uL (0.8-4.8); Lymphocytes % 22.2 %; Mean Corpuscular HGB Conc 32.6 g/dL (30-55); Mean Corpuscular Hemoglobin 30.6 pg (27-33); Mean Corpuscular Volume 93.8 fl (82-101); Mean Platelet Volume 9.8 fL (7.4-10.4); Monocytes # 0.6 10^3/uL (0.2-0.9); Monocytes % 12.4 %; Neutrophils # 2.95 10^3/uL (1.8-7.7); Neutrophils % 61.3 %; Nucleated Red Blood Cells % 0 %; Platelet Count 172 10^3/cmm (157-399); Red Blood Count 3.04 10^6/uL (3.85-5.65); Red Cell Distribution Width 18.1 % (12.1-15.1); White Blood Count 4.82 10^3/uL (3.29-11.43)
[2024-12-22 05:43] LABS: Alanine Aminotransferase 41 U/L (0-41); Albumin Level 3.2 g/dL (3.5-5.2); Alkaline Phosphatase 64 U/L (40-130); Aspartate Amino Transferase 60 U/L (0-40); Blood Urea Nitrogen 13 mg/dL (6-20); Calcium 8.9 mg/dL (8.5-10.5); Carbon Dioxide 24 mmol/L (22-29); Chloride 102 mmol/L (98-107); Creatinine Clr Calc Pharmacy 78.6256; Glomerular Filtration Rate 62.4 mL/min (90-130); Glucose 108 mg/dL (65-115); Osmolality Calculated 281 mOsm/kg (285-295); Sodium 135 mmol/L (136-145); Total Bilirubin 0.5 mg/dL (0.15-1.2); Total Protein 7.2 g/dL (6.6-8.7)
[2024-12-22] MEDS: aspirin 81 mg EC Tablet PO (09:21)
[2024-12-22] MEDS: losartan 50 mg Tablet 100 MG PO (09:21)
[2024-12-22] MEDS: clopidogrel 75 mg Tablet PO (09:22)
[2024-12-22] MEDS: pantoprazole DR 40 mg Tablet PO (09:22)
[2024-12-22] MEDS: metoprolol tartrate 50 mg Tablet 100 MG PO (09:22)
[2024-12-22] MEDS: amlodipine 5 mg Tablet 2.5 MG PO (09:22)
--- NOTE | 2024-12-22 10:55 | P.PN_ITS ---
<Statement entered by Isak Boyce M.D - 12/23/24 12:47> Patient was cared for in conjunction with an advanced practice practitioner.? I personally reviewed the chart and all pertinent data including imaging, telemetry, and laboratory results.? I discussed the patient in detail with the advanced practice practitioner.? Please see? their note for complete progress note, testing results and agreed upon plan of care for the patient. Subjective 2 Subjective: Patient doing well today. He has not had any further chest pains. Trops were negative. Vitals/I&O/Wt Last Vital Signs Temp 98.2 F 12/22/24 07:47 Pulse 70 12/22/24 07:47 Resp 18 12/22/24 07:47 BP 130/74 12/22/24 09:21 Pulse Ox 95 12/22/24 07:47 O2 Del Method BiPAP 12/22/24 07:47 FiO2 21 12/21/24 21:35 12/21/24 12/22/24 12/22/24 22:59 06:59 14:59 Intake Total 700 / 700 Balance 700 / 700 Weight last 48 hrs Weight 217 lb 4.8 oz Weight 215 lb Weight 215 lb Physical Exam 2 Narrative: General: No apparent distress, healthy appearing, well nourished HENMT: normoceophalic Neck: No carotid bruit bilaterally Muskuloskeletal: Full ROM Lymphatic: no lymphedema noted Respiratory: Normal respiratory effort, clear to auscultation bilaterally throughout all lung perez, no use of accessory muscles Cardio: No JVD, regular rate, regular rhythm, S1 S2 normal, no murmurs, peripheral pulses 2+ radial palpated bilaterally GI: Normal to inspection, nondistended Extremities: Full ROM, normal, normal capillary refill, no cyanosis or edema Neuro: Alert and oriented x4, no focal motor deficits Psych: Affect normal, denies suicidal ideation, mental status grossly normal Skin: No rashes or lesions noted, no wounds Data 12/22/24 04:21 12/22/24 04:21 A&P Assessment and plan (1) Chest pain: (2) Hypertension: Qualifiers: Hypertension type: primary hypertension Qualified Code(s): I10 - Essential (primary) hypertension (3) CAD (coronary artery disease): Qualifiers: Coronary Disease-Associated Artery/Lesion type: [place] artery [place] vs. transplanted heart: [place] heart Associated angina: with stable angina Q ualified Code(s): I25.118 - Atherosclerotic heart disease of [place] coronary artery with other forms of angina pectoris Plan At this time, patient is chest pain free, trops are negative. CT chest negative for PE. From a cardiology standpoint, he can be discharged home to come back for his procedure Friday as an outpatient. He is ok with this. PDMP PDMP Reviewed: Not Reviewed Attestations 2 Medical Necessity Statement*: Deferred to primary. Coding Level of Care Code Acute Code for [facility] Fwd Diagnoses Chest pain R07.9 Primary hypertension I10 Hypertension type: primary hypertension Coronary artery disease of [place] artery of [place] heart with stable angina pectoris I25.118 Coronary Disease-Associated Artery/Lesion type: [place] artery [place] vs. transplanted heart: [place] heart Associated angina: with stable angina
--- NOTE | 2024-12-22 11:46 | PC.NURSE ---
pt requested change in diet as he was npo with sips, chips and meds, he asked, am i having the stress test this morning? I educ pt that i did not see an order for the stress test. he then requested i contact the dr to see if he was able to eat. contacted dr. baca via voalte @ [phone], no response. pt requested to know update on if he was having the stress test this am, there were no orders in contacted dr. baca via voalte @ [phone], no response. pt then requested to talk to nathan, interim ms mgr, and wanted to leave ama if he had to, contacted dr. baca via voalte @ [phone], no response.
--- NOTE | 2024-12-22 16:19 | P.DS_ITS ---
Discharge Providers Date of Admission: 12/21/24 05:12 Date of Discharge: December 22, 2024 Attending Provider at Admission: Venita Leonardo MD Attending Provider at Discharge: Selena Espino MD Primary Care Provider: Walker Sarabia MD Diagnoses at Discharge Discharge Diagnosis (1) Chest pain: Status: Acute (2) Hypertension: Status: Acute Qualifiers: Hypertension type: primary hypertension Qualified Code(s): I10 - Essential (primary) hypertension (3) CAD (coronary artery disease): Status: Acute Qualifiers: Coronary Disease-Associated Artery/Lesion type: [place] artery [place] vs. transplanted heart: [place] heart Associated angina: with stable angina Qualified Code(s): I25.118 - Atherosclerotic heart disease of [place] coronary artery with other forms of angina pectoris Reason for Visit Reason for Visit: Chest Pains Brief History: Madi Lowe is a 59 year old male with a recent history of placement of RCA stent on November 04 and known 85% stenosis in the diagonal which was planned for staged intervention this upcoming Friday presented to the hospital with chest pain. Patient states the pain is located in the left side of his chest around the second intercostal space. States he has been very short of breath over the past few weeks however this improved after his most recent intervention on November 04, 2024. States he still has some degree of orthopnea however this is better compared to in October. His EKG and troponin series were not concerning for ACS. D-dimer was elevated therefore CTA of the chest was obtained. No PE was encountered. Patient was evaluated by cardiology. Patient has ostial diagonal artery disease. Perfused area was not abnormal on the stress test. Medical management was recommended. Patient was started on transdermal nitro here in the hospital and his chest pain improved over the next day. He was transition to Imdur 30 mg daily at the time of discharge. He is currently chest pain-free at the time of discharge. He has been cleared from cardiology standpoint to be discharged to follow-up on Friday as scheduled earlier. Physical Exam Narrative: General: No acute distress, AO x3 HEENT: PERRLA, pupils bilaterally equal and reactive, pallors not present Chest: Normal vesicular breath sounds, no added sounds, equal good air entry bilaterally CVS: S1-S2 regular, no murmurs, no tachycardia, no gallops, no rubs Abdomen: Soft, nontender, no organomegaly, bowel sounds present Neuro: No focal deficits, no facial deformity, AO x3, power 5/5 in all limbs Discharge Data Studies Completed and Pending Completed Studies During Hospitalization Category Date Time Status CTA PE [CT angio chest PE protcl [id number]] Routine Cat Scan 12/21/24 16:33 Completed XR chest 1V portable [id number] Stat Exams 12/21/24 04:11 Completed Radiology Impressions Chest X-Ray 12/21/24 04:11 IMPRESSION: No acute findings. Chest CTA 12/21/24 16:33 IMPRESSION: 1. Negative exam for pulmonary embolus and aortic dissection. 2. Minimal bibasilar subsegmental atelectasis associated with mild interstitial edema. 3. Atherosclerosis including coronary artery calcification. Laboratory Results WBC 4.82 10^3/uL (3.29-11.43) 12/22/24 04:21 RBC 3.04 10^6/uL (3.85-5.65) L 12/22/24 04:21 Hgb 9.30 g/dL (11.27-16.99) L 12/22/24 04:21 Hct 28.5 % (37-53) L 12/22/24 04:21 MCV 93.8 fl (82-101) 12/22/24 04:21 MCH 30.6 pg (27-33) 12/22/24 04:21 MCHC 32.6 g/dL (30-55) 12/22/24 04:21 RDW 18.1 % (12.1-15.1) H 12/22/24 04:21 Plt Count 172 10^3/cmm (157-399) 12/22/24 04:21 MPV 9.8 fL (7.4-10.4) 12/22/24 04:21 Neut % (Auto) 61.3 % 12/22/24 04:21 Lymph % (Auto) 22.2 % 12/22/24 04:21 [place] % (Auto) 12.4 % 12/22/24 04:21 Eos % (Auto) 3.3 % 12/22/24 04:21 Baso % (Auto) 0.6 % 12/22/24 04:21 Neut # (Auto) 2.95 10^3/uL (1.8-7.7) 12/22/24 04:21 Lymph # (Auto) 1.1 10^3/uL (0.8-4.8) 12/22/24 04:21 [place] # (Auto) 0.6 10^3/uL (0.2-0.9) 12/22/24 04:21 Eos # (Auto) 0.2 10^3/uL (0.0-0.8) 12/22/24 04:21 Baso # (Auto) 0.0 10^3/uL (0.0-0.1) 12/22/24 04:21 Nucleated RBC % (auto) 0 % 12/22/24 04:21 Nucleated RBCs # 0.0 /100WBC 12/22/24 04:21 D-Dimer 0.80 ug/mLFEU (0-0.59) H 12/21/24 04:14 Sodium 135 mmol/L (136-145) L 12/22/24 04:21 Potassium 4.0 mmol/L (3.5-5.1) 12/22/24 04:21 Chloride 102 mmol/L (98-107) 12/22/24 04:21 Carbon Dioxide 24 mmol/L (22-29) 12/22/24 04:21 Anion Gap 13.0 (5-19) 12/22/24 04:21 BUN 13 mg/dL (6-20) 12/22/24 04:21 Creatinine 1.2 mg/dL (0.7-1.2) 12/22/24 04:21 GFR Calculation 62.4 mL/min (90-130) L 12/22/24 04:21 Glucose 108 mg/dL (65-115) 12/22/24 04:21 Calculated Osmolality 281 mOsm/kg (285-295) L 12/22/24 04:21 Calcium 8.9 mg/dL (8.5-10.5) 12/22/24 04:21 Total Bilirubin 0.5 mg/dL (0.15-1.2) 12/22/24 04:21 Direct Bilirubin 0.20 mg/dL (0.00-0.30) 12/21/24 04:14 AST 60 U/L (0-40) H 12/22/24 04:21 ALT 41 U/L (0-41) 12/22/24 04:21 Alkaline Phosphatase 64 U/L (40-130) 12/22/24 04:21 Troponin T Baseline 12 ng/L (0-15) 12/21/24 04:14 Troponin T 120 Minute 10.93 ng/L (0-15) 12/21/24 05:44 Delta Troponin T -1.07 ABS# (0-10) L 12/21/24 05:44 Troponin T Hi Sens 6Hr 11.25 ng/L (0-15) 12/21/24 10:04 Troponin T Hi Sens 6Hr Delta -0.75 ng/L (0-12) L 12/21/24 10:04 NT-Pro-B Natriuret Pep 271 pg/mL (0-125) H 12/21/24 04:14 Total Protein 7.2 g/dL (6.6-8.7) 12/22/24 04:21 Albumin 3.2 g/dL (3.5-5.2) L 12/22/24 04:21 Globulin 4.0 g/dL (1.3-4.6) 12/22/24 04:21 Lipase 54 U/L (13-60) 12/21/24 04:14 Vitals Last Vital Signs Temp 99 F 12/22/24 11:33 Pulse 71 12/22/24 11:33 Resp 17 12/22/24 11:33 BP 129/78 12/22/24 11:33 Pulse Ox 93 12/22/24 11:33 O2 Del Method Room Air 12/22/24 11:33 FiO2 21 12/21/24 21:35 Discharge Plan Discharge Patient Disposition: Home Condition: Stable Prescriptions: New isosorbide mononitrate 30 mg tablet extended release 24 hr 30 mg PO DAILY 30 Days Qty: 30 0RF Continued fluticasone propionate [Flonase Allergy Relief] 50 mcg/actuation spray,suspension 1 spray intranasal BID PRN (Reason: nasal congestion) Qty: 16 0RF Rx Instructions: administer into each nostril citalopram 20 mg tablet 40 mg PO DAILY 30 Days Qty: 60 1RF amlodipine 2.5 mg tablet 2.5 mg PO DAILY Qty: 30 6RF bupropion HCl [Wellbutrin XL] 150 mg tablet extended release 24 hr 150 mg PO QAM Qty: 30 6RF nitroglycerin 0.4 mg tablet, sublingual 0.4 mg sublingual Q5M PRN (Reason: chest pain) Qty: 20 0RF Rx Instructions: do not exceed 3 doses per episode losartan 100 mg tablet 100 mg PO DAILY atorvastatin 40 mg Tablet 80 mg PO BEDTIME Qty: 90 0RF clopidogrel 75 mg Tablet 75 mg PO DAILY Qty: 90 0RF aspirin 81 mg Tablet,Delayed Release (Dr/Ec) 81 mg PO DAILY Qty: 90 0RF metoprolol tartrate 100 mg tablet 100 mg PO BID Rx Instructions: TAKE 1 TABLET BY MOUTH TWICE A DAY FOR HIGH BLOOD PRESSURE Discharge Orders: Discharge Order (Routine); Ordered 12/22/24 Ordered By: Selena Espino Referrals: Walker Sarabia MD [Primary Care Provider] - 01/28/25 10:20 am Claudy Lutz MD [Physician] - 1-3 days Discharge Diet: Usual diet Discharge Activity: Resume usual activity Patient Instructions: Isosorbide Mononitrate (By mouth), Chest Pain (DC), Opioid Safety Discharge Attestations Time Spent in Discharge Care*: greater than 30 min Status at Discharge: Cognitive status at discharge: cognitively intact , Behavioral status at discharge: cooperative , Quality Metrics Clinical Quality Measures [ No reported AMI, CVA or VTE this stay] Coding Level of Care Code Acute Code for g Fwd Diagnoses Chest pain R07.9 Primary hypertension I10 Hypertension type: primary hypertension Coronary artery disease of [place] artery of [place] heart with stable angina pectoris I25.118 Coronary Disease-Associated Artery/Lesion type: [place] artery [place] vs. transplanted heart: [place] heart Associated angina: with stable angina
== END 2024-12-22 11:20 | disposition home or self-care (01) ==
LOC: ER 05:36 → MEDSURG 05:38
PROVIDERS: Admitting Provider Internal Medicine; Emergency Provider Emergency Medicine; PCP Family Medicine; Visit Provider Student in an Organized Health Care Education/Training Program
DX: R07.9 Chest pain, unspecified (principal); I10 Essential (primary) hypertension; I25.118 Atherosclerotic heart disease of native coronary artery with other forms of angina pectoris; Z79.82 Long term (current) use of aspirin; J45.909 Unspecified asthma, uncomplicated; Z82.5 Family history of asthma and other chronic lower respiratory diseases; Z95.820 Peripheral vascular angioplasty status with implants and grafts; Z95.5 Presence of coronary angioplasty implant and graft
CPT/HCPCS: 36415; 71045; 71275; 80053; 80076; 83690; 83880; 84484; 85025; 85378; 93005; 94660; 96372; 96374; 96375; 99285; G0378; J0360; J1171; J1650; J2405; J9999

== ENCOUNTER 2024-12-24 09:33 | Observation (INO) | payer OTHER, SELFPAY ==
[2024-12-24] VITALS (7 sets, daily range): BP systolic 132–159; BP diastolic 77–96; PULSE 59–76; RESP 17–21; TEMP 36.4–37.2; O2SAT 95–97; BMI 32.3
--- NOTE | 2024-12-24 06:00 | XACV_ITS ---
Ht: 175 cm Wt: 99 kg BSA: 2.23 m2 Gender: Male : 1965 Any Known Allergies: No known allergies Exam Priority: Routine Procedure(s): Procedure Description: Diagnostic procedure Procedure Description: PCI procedure Procedure Description: Left Heart Catheterization Procedure Description: Drug Eluting Coronary Stent Procedure Description: PTCA Procedure Description: Miscellaneous Procedure Description: ACT KHLESUAbdiel, Lutz; Diagnostic Cath Status: Elective PCI Indication: Other Interventional Findings * After engaging with CLS 3.56 Uzbek guide, run-through wire was used to cross the lesion into the diagonal branch. Diagonal branch was then predilated with 2.5 x 12 mm AB trek balloon, Martha MDT 3.0 x 12 mm stent was deployed at 12 CHRISTINA, it was then postdilated using noncompliant balloon 3.25 x 8 mm at high inflation of 16 CHRISTINA. Excellent angiographic result with ALIS-3 flow was achieved. Patient tolerated procedure well without any complication.. Conclusions 1. Indication: Staged PCI to large size and caliber high-grade 90% ostial diagonal branch. 60-year-old male past medical history significant for recent acute coronary syndrome ST elevation NM underwent difficult angioplasty requiring stent to distal RCA which was very torturous and calcified, it was treated successfully with drug-eluting stent in the distal segment however given the difficulty of the procedure patient achieved high normal radiation and contrast therefore we decided to bring patient back for staged PCI to ostial diagonal branch which we will try to manage with optimal medical management however patient continues to have chest pressure and recurrent chest pain. Today patient was brought in for this purpose.. 2. 1. Left main: Luminal irregularity without significant stenosis, #2 LAD has diffuse luminal irregularity without significant stenosis, diagonal branch has high-grade ostial 90% stenosis which is the culprit it is moderate size and caliber vessel. Left circumflex has luminal irregularity without significant stenosis. RCA is torturous large dominant vessel with ectasia, patent previously placed distal RCA stent.. Recommendations * 1-Return to inpatient for close monitoring and routine cath care 2-Risk factor modification for secondary prevention 3-Statin and aspirin 81 mg life-long, if tolerated 4-Continue Plavix 75mg p.o. daily for at least one year. We will assess at the end of one year again to continue if further or not 5-Continue optimal medical management 6-Follow up with Dr. Lutz in four weeks and your primary care in 10 days. Diagnostic RX Recommendation: PCI w/o planned CABG Pressures Phase:Rest AO : 150 / 80 ( 109 ) @ 8:54:00 AM 148 / 83 ( 109 ) @ 9:03:00 AM 141 / 77 ( 104 ) @ 9:26:00 AM 143 / 73 ( 105 ) @ 9:54:00 AM Clinical Evaluation EBL: 5mL-10mL Procedural Details Procedure Consent Obtained. Pre-Procedure Time Out. Identified patient by full name and date of as verbalized by the patient/guarantor. Does the consent match the physician's order: Yes. Accurate & Complete Informed Consent: Yes. Inpatient/Outpatient History & Physical on Chart: Yes. If H&P is completed, is and addenduem needed: No; If yes, is the addendum complete: N/A. Visualize and Verify Site with Patient/Guarantor: N/A. Relevant Radiology Images available: N/A. Pre-op teaching completed and patient verbalized understanding. The risks, benefits, and alternatives of sedation and/or procedure were discussed by physician. The patient agrees to continue. Procedure started. [facility] Clinical Fraility Score: 3: Managing Well. [employer] Pro Indications: Worsening Angina, stable CAD. Chest Pain Symptom Assessment: Typical Angina Symptoms. Cardiovascular Instability: No. Correct patient, site and procedure confirmed by cath team. PERRLA. Strong, equal hand accounting consultant bilaterally. Lungs clear x 5 lobes. IV Site on Arrival: 20 gauge in the left hand. IV Fluids: 0.9% NaCl at KVO. 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 Pre Procedural Pulses: right dorsalis pedis was 1+. Pre Procedural Pulses: left dorsalis pedis was Doppled. Pre Procedural Pulses: bilateral posterior tibial was 3+. Pre Procedural Pulses: bilateral radial was 3+. Oxygen started at 2liters/min via nasal canula. bilateral groins was prepped with chloroprep then draped in the usual sterile fashion. Baseline sample Acquired. HR: 68 BPM. Physician arrived. Equipment: 6F - Femoral. Cardiac Cath Pack. ACIST Manifold Kit Model BT 2000. Heparinized Saline (2 units/mL), 1000 mL bag. Kit, Micropuncture. Physician scrubbed in. Immediate Pre-Procedure Time Out. Correct Patient: Yes; Correct Procedure: Yes; Correct Site: Yes; Correct Patient Position: Yes; Correct Supplies: Yes; Dried Flammable Prep: Yes; Blood Products Available: N/A;. Lidocaine 1% infiltrated to the right groin. Arterial access obtained with micropuncture set. A Right femoral angiogram was performed to determine safe placement of closure device. A Right femoral angiogram was performed to determine safe placement of closure device. A 5 tristanian JR4 catheter in over wire. Multiple views taken of right coronary artery. Catheter out. 6 tristanian CLS 3.5 guide catheter was inserted over the wire. Guide catheter pulled back. Side port of sheath attached to Normal Saline flush at KVO to maintain patency. Power out in the facility due to severe weather. Lei system down. A floor representative was called. On hold at this time. Catheter pulled out. System back up and operational. 6 tristanian CLS 3.5 guide catheter was inserted over the wire. ACT drawn. Results 191 seconds. Therapeutic limits - pre-heparin administration 90-150 seconds and monitoring heparin during a vascular procedure >250 seconds. Runthrough guidewire was advanced through the guide catheter to lesion in the diaganol. Inflation number : 1 A AB TREK 2.50X12 RX BALLOON was prepped and advanced across the 1st Diag , then inflated to 14 CHRISTINA for 0:10 seconds. Inflation number: 2 The AB TREK 2.50X12 RX BALLOON was reinflated across the 1st Diag, to 14 CHRISTINA for 0:10 seconds. Balloon out. Results checked. Inflation Number : 3 A MDT R MARTHA 3.0X12 ALYSE -Lot Number# [id number] exp date 10/07/2025 was prepped and advanced across the 1st Diag. The stent was deployed at 14 CHRISTINA for 0:18 seconds. Stent balloon out over wire. Inflation number : 4 A MDT NC EUPHORA RX [id number] BALLOON was prepped and advanced across the 1st Diag , then inflated to 14 CHRISTINA for 0:15 seconds. Inflation number: 5 The MDT NC EUPHORA RX [id number] BALLOON was reinflated across the 1st Diag, to 14 CHRISTINA for 0:12 seconds. Inflation number: 6 The MDT NC EUPHORA RX [id number] BALLOON was reinflated across the 1st Diag, to 12 CHRISTINA for 0:12 seconds. Balloon out. Results checked. Results checked. Wire out. ACT drawn. Results 263 seconds. Therapeutic limits - pre-heparin administration 90-150 seconds and monitoring heparin during a vascular procedure >250 seconds. Guide catheter out. A Angio-Seal VIP ([place]) was successful obtaining hemostatsis at the Right Femoral artery insertion site. Lidocaine 1% infiltrated to the right groin. Angioseal placed without complications. No signs or symptoms of hematoma noted. Sterile dressing applied per usual sterile fashion. Post Procedure: Pulses reassessed and unchanged. PERRLA. Strong, equal hand accounting consultant bilaterally. Medication's Wasted: Lidocaine 1% = 10 mL. Medication's Wasted: Heparin = 1000 units. Medication's Wasted: Other = versed 1 mg. Total IV fluids: 100 mL. Contrast type used: Omnipaque 300 mgI/mL, 500 mL bottle. Complications: none. Estimated blood loss: 5mL-10mL. Responsiveness - Normal response to verbal stimuli; alert and oriented, PERRLA. Airway - Unaffected, no intervention required; spontaneous ventilation. Circulation: W/N/L, pulses unchanged. Nausea/Vomiting: No. No VTE prophylaxis required. Post-op diagnosis: unstable angina, obstructive CAD. Procedure completed. Patient transferred by bed to 1st floor. Vital chart was stopped. Access Site Site: Right Femoral artery Sheath Size: 6 Fr Hemostasis Method: Angio-Seal VIP ([place]) Hemostasis Success: Successful Procedure Medications Start: 7:24 AM Stop: 7:24 AM Medication: Benadryl Amount: 25 mg Route: I.V. Start: 7:33 AM Stop: 7:33 AM Medication: Versed Amount: 1 mg Route: I.V. Start: 7:33 AM Stop: 7:33 AM Medication: Fentanyl Amount: 50 mcg Route: I.V. Start: 7:45 AM Stop: 7:45 AM Medication: Versed Amount: 1 mg Route: I.V. Start: 7:48 AM Stop: 7:48 AM Medication: Fentanyl Amount: 25 mcg Route: I.V. Start: 8:18 AM Stop: 8:18 AM Medication: Versed Amount: 1 mg Route: I.V. Start: 8:22 AM Stop: 8:22 AM Medication: Fentanyl Amount: 25 mcg Route: I.V. Start: 8:28 AM Stop: 8:28 AM Medication: Benadryl Amount: 25 mg Route: I.V. Start: 8:31 AM Stop: 8:31 AM Medication: Heparin Amount: 5000 units Route: I.V. Start: 8:22 AM Stop: 8:22 AM Medication: Versed Amount: 1 mg Route: I.V. Start: 8:37 AM Stop: 8:37 AM Medication: Versed Amount: 1 mg Route: I.V. Start: 8:54 AM Stop: 8:54 AM Medication: Versed Amount: 1 mg Route: I.V. Start: 8:55 AM Stop: 8:55 AM Medication: Heparin Amount: 5000 units Route: I.V. Start: 9:03 AM Stop: 9:03 AM Medication: Versed Amount: 1 mg Route: I.V. Start: 9:22 AM Stop: 9:22 AM Medication: Plavix Amount: 300 mg Route: P.O. I, the attending physician, have reviewed and verified all procedure medications. Yes, all medications given per verbal order History/Risk Factors Hypertension: Yes Dyslipidemia: Yes Peripheral Arterial Disease (PAD): No Myocardial Infarction (NM): No Obesity: No Renal Disease: No Tobacco Use: Never Prior Interventions PCI: No CABG: No Valve Surgery: No Report Signatures Finalized by Claudy Lutz MD on 01/10/2025 05:20 PM
--- NOTE | 2024-12-24 07:34 | W.PM.OPSUD ---
Surgery/Procedure H&P Update DATE OF PROCEDURE: December 24, 2024 DATE H&P PERFORMED: 11/30/24 H&P UPDATE INFORMATION: I have reviewed H&P completed within last 30 days, I have examined patient prior to procedure and Changes to prior documentation as noted here CHANGES TO PREVIOUS DOCUMENTATION: patient was admitted to the hospital with worsening of chest pain and shortness of breath. He was ruled out for acute coronary syndrome. Stress test was negative. Patient had acute coronary syndrome last month when RCA was treated with drug-eluting stent during the same admission it was learned that patient has diagonal branch which is moderate caliber thought to be staged PCI due to reaching contrast and radiation dose. In between we try to manage it medically since patient continues to have chest pain which has continued after the recent admission tried nitroglycerin, he is becoming more short of breath as well it is the reason he is here today for left heart cath. Indication is possible unstable angina at this point we will try to explore diagonal branch if indicated will proceed with PCI. PREOP DIAGNOSIS: Chest pain/unstable angina PRIMARY INDICATION FOR PROCEDURE: Unstable angina PLANNED PROCEDURE: Operation Date: 12/24/24 07:00 Proposed Procedures p urgent Staged PCI 51953, I20.0(Not Applicable) - Claudy Lutz MD PATIENT REASSESSED PRIOR TO SEDATION, WITH NO CHANGE NOTED: Yes PHYSICAL EXAM: alert, oriented x 3, clear to auscultation bilaterally, regular rate & rhythm and operative site marked AIRWAY EVAL/ANESTHESIA PLAN: ASA II, Risks, benefits & alternatives of sedation and/or procedure discussed and Patient agrees to continue as planned
--- NOTE | 2024-12-24 09:27 | PM.PROC ---
Procedure Note: Date of procedure: 12/24/24 Pre-procedure diagnosis: unstable angina Post-procedure diagnosis: same Procedure: Left heart catheterization indication: Unstable angina High-grade ostial more than 90% stenosis of the large caliber in size diagonal branch treated with single drug-eluting stent postdilated noncompliant balloon. Excellent angiographic result ALIS-3 flow was noted. Please note that due to weather problem and light straightening however the monitor went off there was delay in between the procedure for that reason Plan Bedrest for 4 hours as patient has Angio-Seal in right common femoral artery Continue aspirin statin Patient loaded with 300 mg of Plavix continue Plavix 75 mg p.o. daily patient is already on Plavix at home. Continue resume home medications IV fluid 100 mL/h for next 10 hours Coding Level of Care Code Acute Code for Salvador Obregon
[2024-12-24] MEDS: sodium chloride 0.9% 1,000 ML 100 ML IV (10:00)
[2024-12-25 04:00] VITALS: BP 148/84; PULSE 81; RESP 21; TEMP 37; O2SAT 94
[2024-12-25 05:49] LABS: Basophils % 0.6 %; Eosinophils # 0.2 10^3/uL (0.0-0.8); Eosinophils % 3.7 %; Hematocrit 27.7 % (37-53); Lymphocytes # 0.9 10^3/uL (0.8-4.8); Lymphocytes % 18.5 %; Mean Corpuscular HGB Conc 33.2 g/dL (30-55); Mean Corpuscular Volume 93.3 fl (82-101); Mean Platelet Volume 9.3 fL (7.4-10.4); Monocytes # 0.6 10^3/uL (0.2-0.9); Monocytes % 12.3 %; Neutrophils % 64.7 %; Nucleated Red Blood Cells % 0 %; Platelet Count 166 10^3/cmm (157-399); Red Blood Count 2.97 10^6/uL (3.85-5.65); White Blood Count 4.64 10^3/uL (3.29-11.43)
[2024-12-25 06:00] VITALS: PULSE 78
[2024-12-25 06:08] LABS: Anion Gap 11.9 (5-19); Blood Urea Nitrogen 12 mg/dL (6-20); Calcium 8.7 mg/dL (8.5-10.5); Carbon Dioxide 21 mmol/L (22-29); Chloride 106 mmol/L (98-107); Creatinine Clr Calc Pharmacy 86.0966; Glucose 104 mg/dL (65-115); Osmolality Calculated 280 mOsm/kg (285-295); Potassium 3.9 mmol/L (3.5-5.1); Sodium 135 mmol/L (136-145)
[2024-12-25 08:00] VITALS: BP 135/91; PULSE 83; RESP 20; TEMP 37.1; O2SAT 94
[2024-12-25] MEDS: clopidogrel 75 mg Tablet PO (08:22)
[2024-12-25 12:00] VITALS: BP 162/82; PULSE 88; RESP 20; TEMP 37.2; O2SAT 96
--- NOTE | 2024-12-25 13:53 | PM.DCS ---
Discharge Providers Date of Admission: 12/24/24 09:33 Date of Discharge: December 25, 2024 Attending Provider at Admission: Claudy Lutz MD Attending Provider at Discharge: Claudy Lutz MD Primary Care Provider: Walker Sarabia MD Reason for Visit Reason for Visit: I20.0 Hospital Course Hospital Course 59-year-old male past medical history significant for recent ST elevation [place] when he was treated with distal RCA stent at the same time was noted patient has significant ostial large caliber size diagonal branch however because of extreme tortuosity of RCA and difficulty in placing the stent patient achieved maximum contrast and radiation therefore staged PCI to ostial diagonal branch was advised, patient intermittently admitted few days ago and through the hospital with worsening of chest pain though stress test was negative he was discharged home on medical management despite of that he continues to have off-and-on chest pain he was already scheduled for left heart cath on 12/24/2024 therefore he came in and had angiogram done, balloon angioplasty followed by drug-eluting stent postdilated with noncompliant balloon was performed in the ostial diagonal branch of the LAD. Excellent angiographic result was obtained. There was no overnight event. Patient tolerated procedure well, right groin looks good he is stable and doing fine from cardiovascular perspective, he would like to go home therefore we will discharge him today. 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 He is reminded of continuing his medication including aspirin and statin clopidogrel and metoprolol. Patient already had clopidogrel all refills at home and does not need anymore advised in case he needs any more refills he should let us know. Physical Exam Const: OTHER: GENERAL: Patient is alert, awake and oriented x3. HEART: Regular S1 and S2. No murmur, rub or gallop. LUNGS: Clear to auscultate bilaterally. CENTRAL NERVOUS SYSTEM: Grossly nonfocal. EXTREMITIES: Lower extremities with out edema bilaterally. 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 Routine Exams 12/24/24 06:00 Taken Laboratory Results WBC 4.64 10^3/uL (3.29-11.43) 12/25/24 05:35 RBC 2.97 10^6/uL (3.85-5.65) L 12/25/24 05:35 Hgb 9.20 g/dL (11.27-16.99) L 12/25/24 05:35 Hct 27.7 % (37-53) L 12/25/24 05:35 MCV 93.3 fl (82-101) 12/25/24 05:35 MCH 31.0 pg (27-33) 12/25/24 05:35 MCHC 33.2 g/dL (30-55) 12/25/24 05:35 RDW 18.0 % (12.1-15.1) H 12/25/24 05:35 Plt Count 166 10^3/cmm (157-399) 12/25/24 05:35 MPV 9.3 fL (7.4-10.4) 12/25/24 05:35 Neut % (Auto) 64.7 % 12/25/24 05:35 Lymph % (Auto) 18.5 % 12/25/24 05:35 [place] % (Auto) 12.3 % 12/25/24 05:35 Eos % (Auto) 3.7 % 12/25/24 05:35 Baso % (Auto) 0.6 % 12/25/24 05:35 Neut # (Auto) 3.00 10^3/uL (1.8-7.7) 12/25/24 05:35 Lymph # (Auto) 0.9 10^3/uL (0.8-4.8) 12/25/24 05:35 [place] # (Auto) 0.6 10^3/uL (0.2-0.9) 12/25/24 05:35 Eos # (Auto) 0.2 10^3/uL (0.0-0.8) 12/25/24 05:35 Baso # (Auto) 0.0 10^3/uL (0.0-0.1) 12/25/24 05:35 Nucleated RBC % (auto) 0 % 12/25/24 05:35 Nucleated RBCs # 0.0 /100WBC 12/25/24 05:35 Sodium 135 mmol/L (136-145) L 12/25/24 05:35 Potassium 3.9 mmol/L (3.5-5.1) 12/25/24 05:35 Chloride 106 mmol/L (98-107) 12/25/24 05:35 Carbon Dioxide 21 mmol/L (22-29) L 12/25/24 05:35 Anion Gap 11.9 (5-19) 12/25/24 05:35 BUN 12 mg/dL (6-20) 12/25/24 05:35 Creatinine 1.1 mg/dL (0.7-1.2) 12/25/24 05:35 GFR Calculation 69.0 mL/min (90-130) L 12/25/24 05:35 Glucose 104 mg/dL (65-115) 12/25/24 05:35 Calculated Osmolality 280 mOsm/kg (285-295) L 12/25/24 05:35 Calcium 8.7 mg/dL (8.5-10.5) 12/25/24 05:35 Vitals Last Vital Signs Temp 99.0 F 12/25/24 12:00 Pulse 88 12/25/24 12:00 Resp 20 H 12/25/24 12:00 BP 162/82 12/25/24 12:00 Pulse Ox 96 12/25/24 12:00 O2 Del Method Room Air 12/25/24 12:00 Discharge Plan Discharge Patient Disposition: Home Condition: Stable Prescriptions: Continued fluticasone propionate [Flonase Allergy Relief] 50 mcg/actuation spray,suspension 1 spray intranasal BID PRN (Reason: nasal congestion) Qty: 16 0RF Rx Instructions: administer into each nostril citalopram 20 mg tablet 40 mg PO DAILY 30 Days Qty: 60 1RF amlodipine 2.5 mg tablet 2.5 mg PO DAILY Qty: 30 6RF bupropion HCl [Wellbutrin XL] 150 mg tablet extended release 24 hr 150 mg PO QAM Qty: 30 6RF nitroglycerin 0.4 mg tablet, sublingual 0.4 mg sublingual Q5M PRN (Reason: chest pain) Qty: 20 0RF Rx Instructions: do not exceed 3 doses per episode losartan 100 mg tablet 100 mg PO DAILY atorvastatin 40 mg Tablet 80 mg PO BEDTIME Qty: 90 0RF clopidogrel 75 mg Tablet 75 mg PO DAILY Qty: 90 0RF aspirin 81 mg Tablet,Delayed Release (Dr/Ec) 81 mg PO DAILY Qty: 90 0RF metoprolol tartrate 100 mg tablet 100 mg PO BID Rx Instructions: TAKE 1 TABLET BY MOUTH TWICE A DAY FOR HIGH BLOOD PRESSURE isosorbide mononitrate 30 mg tablet extended release 24 hr 30 mg PO DAILY 30 Days Qty: 30 0RF Discharge Orders: Discharge Order (Routine); Ordered 12/25/24 Ordered By: Claudy Lutz Referrals: Luiza Good FNP [Nurse Practitioner] - 01/10/25 1:30 pm Discharge Diet: Cardiac Discharge Activity: Increase activity as tolerated Patient Instructions: Coronary Angioplasty (DC), Opioid Safety Plan of Treatment: Follow-up with cardiology clinic with cardiology nurse practitioner in 7 to 10 days Continue home meds including Plavix for at least 1 year further plan will advise after that 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 Discharge Attestations Time Spent in Discharge Care*: greater than 30 min Status at Discharge: Cognitive status at discharge: cognitively intact, Behavioral status at discharge: cooperative, Quality Metrics Clinical Quality Measures [ No reported AMI, CVA or VTE this stay] Coding Level of Care Code Acute Code for Chg Sabas
== END 2024-12-25 14:28 | disposition home or self-care (01) ==
LOC: CSU 10:18
PROVIDERS: Admitting Provider Internal Medicine Cardiovascular Disease; PCP Family Medicine; Visit Provider Internal Medicine Cardiovascular Disease
DX: I25.119 Atherosclerotic heart disease of native coronary artery with unspecified angina pectoris (principal); Z79.82 Long term (current) use of aspirin; Z95.5 Presence of coronary angioplasty implant and graft; I10 Essential (primary) hypertension; I25.2 Old myocardial infarction; E78.5 Hyperlipidemia, unspecified; J45.909 Unspecified asthma, uncomplicated
CPT/HCPCS: 36415; 80048; 85025; 85347; 93454; 96374; 96375; 96376; 99152; 99153; C1725; C1760; C1769; C1874; C1887; C1894; C9600; G0269; G0378; J1200; J1644; J2250; J3010; J7030; J9999; Q9967

== ENCOUNTER → 2025-01-10 14:22 | Outpatient (BNVA) | payer OTHER, SELFPAY | PROVIDERS: PCP Family Medicine; Visit Provider Nurse Practitioner Family | DX: I10 Essential (primary) hypertension (principal) | CPT/HCPCS: 36415; 80053; 82550; 85025 ==

== ENCOUNTER 2025-06-23 16:06 | Observation (INO) | payer OTHER, SELFPAY ==
[2025-06-23] VITALS (8 sets, daily range): BP systolic 151–185; BP diastolic 81–98; PULSE 68–77; RESP 17–28; TEMP 37.1; O2SAT 93–97; BMI 32.5
--- OUTSIDE RECORDS SUMMARY | 2025-06-23 16:14 | XMS_ITS | Encounter Summary ---
Author Organization [facility] Address [address] [place] [address] Care Team Providers Care Wound Care Specialist Name Role Phone Rubina Dhillon MD Primary Care Provider [phone] Encounter Details Date Type Department Care Team (Late st Contact Info) Description 10/23/2015 Ancillary Orders [facility] Emergency Medicine [address] [place] [id number] Finn Arreguin, DO NO ADDRESS ON FILE Acute bronchitis (Primary Dx) Social History Tobacco Use Types Packs/Day Years Used Date Smoking Tobacco: Never Smokeless Tobacco: Never Alcohol Use Standard Drinks/Week Comments No 0 (1 standard drink = 0.6 oz pure alcohol) last time I drank was in February Sex and Gender Information Value Date Recorded Sex Assigned at Not on file Legal Sex Male 7:[address] TECHNICIAN Gender Identity Not on file Sexual Orientation Not on file Occupation Industry Job Start Date Job End Date Not on file Not on file Not on file Not on file Not on file Not on file Not on file Not on file documented as of this encounter Plan of Treatment Not on file documented as of this encounter Results * XR CHEST PA AND LATERAL (10/23/2015 9:[address] TECHNICIAN) Anatomical Region Laterality Modality Chest Computed Radiogr aphy 10/23/2015 9:[address] TECHNICIAN Impressions 10/24/2015 12:[address]CHNICIAN IMPRESSION: 1. No acute cardiopulmonary disease. dmh/cjf Uploaded from [employer] [id number] Narrative 10/24/2015 12:[address]CHNICIAN Exam: XR CHEST PA AND LATERAL Date/Time of Exam: 10/23/2015 9:22 PM Reason For Exam: Acute bronchitis. Findings: PA and lateral projections of the chest without prior films for comparison purposes demonstrates the heart size to be normal without evidence of mediastinal widening, hilar adenopathy or pleural effusion. Air space pneumonia or parenchymal nodularity is not evident and there is no underlying pneumothorax. Lung volumes are normal. Dorsal spine demonstrates only mild degenerative changes. Lung volumes are normal. Procedure Note Rivas Ramirez, DO - 10/24/2015 Exam: XR CHEST PA AND LATERAL Date/Time of Exam: 10/23/2015 9:22 PM Reason For Exam: Acute bronchitis. Findings: PA and lateral projections of the chest without prior films for comparison purposes demonstrates the heart size to be normal without evidence of mediastinal widening, hilar adenopathy or pleural effusion.Air space pneumonia or parenchymal nodularity is not evident and there is no underlying pneumothorax. Lung volumes are normal. Dorsal spinedemonstrates only mild degenerative changes. Lung volumes are normal. IMPRESSION IMPRESSION: 1. No acute cardiopulmonary disease. dmh/cjf Uploaded from [employer] [id number] Finn Arreguin DO DIAGNOSTIC IMAGING ORDERABLES F inal Result documented in this encounter Visit Diagnoses Diagnosis Acute bronchitis- Primary Acute bronchitis documented in this encounter Care Teams Wound Care Specialist Relationship Specialty Start Date End Date Rubina Dhillon MD [address] [id number] PCP - General Family Practice 07/09/13 documented as of this encounter
--- OUTSIDE RECORDS SUMMARY | 2025-06-23 16:14 | XMS_ITS | Patient Health Record ---
Author Organization [facility] Address [address] [place] [address] Care Team Providers Care Customer Support Advisor Name Role Phone Walker Sarabia MD Primary Care Provider Nick Marino Unavailable [phone] Allergies Allergen (clinical drug ingredient) Drug/Non Drug Allergy documented on EMR Reaction Allergy Type Onset Date Status No Known Drug Allergy Unknown Drug Allergy Active Reason For Referral No Information Medications Medication SIG (Take, Route, Frequency, Duration) Notes Start Date End Date Status Nitroglycerin 0.4 MG Tablet Sublingual as directed Sublingual as needed for chest pain or shortness of breath unrelieved by rest may take up to 3 doses 5 minutes apart; Duration: 30 day(s) 05/31/2022 Active Citalopram Hydrobromide 20 M G Tablet TAKE 1 TABLET BY MOUTH EVERY DAY Oral; Duration: 90 Active Omeprazole 20 MG Capsule Delayed Release TAKE 1 CAPSULE BY MOUTH EVERY DAY Oral; Duration: 90 Active Pramipexole Dihydrochloride ER 0.375 MG Tablet Extended Release 24 Hour 1 tablet Orally Once a day; Duration: 30 day(s) 11/08/2022 Active predniSONE 5 MG Tablet TAKE 1 TABLET BY MOUTH EVERY DAY Oral; Duration: 30 Active Albuterol Sulfate HFA 108 (9 0 Base) MCG/ACT Aerosol Solution INHALE 1-2 PUFFS USING INHALER EVERY FOUR TO SIX HOURS WHILE AWAKE NEEDED Inhalation; Duration: 30 Active Losartan Potassium 100 MG Tablet TAKE 1 TABLET BY MOUTH EVERY DAY FOR HIGH BLOOD PRESSURE Oral; Duration: 90 Active NyQuil Active amLODIPine Besylate 10 MG Tablet 1 tablet Orally Once a day; Duration: 90 days Active Isosorbide Mononitrate ER 30 MG Tablet Extended Release 24 Hour TAKE 1 TABLET BY MOUTH TWICE A DAY; Duration: 90 Active Metoprolol Tartrate 50 MG Tablet 1 tablet with food Orally Twice a day; Duration: 90 days Active Immunizations Vaccine Route Administration Date Status Comme nts Flucelvax Quadrivalent Pres Free Unknown 06/21/2022 Adm inistered Social History Section Notes: never tobacco, deies alcohol , reports caffeine never tobacco, deies alcohol , reports caffeine never tobacco, deies alcohol , reports caffeine never tobacco, deies alcohol , reports caffeine never tobacco, deies alcohol , reports caffeine never tobacco, deies alcohol , reports caffeine never tobacco, deies alcohol , reports caffeine Problems Problem Type SNOMED Code ICD Code Onset Dates Problem Status W/U Status Risk Notes Problem Unstable angina (4259826) Unstable angina (I20.0) Active confirmed Problem Coronary artery aneurysm (07676996) Coronary artery aneurysm (I25.41) Active confirmed Problem Dilatation of aorta (27904370) Aortic ectasia, unspecified site (I77.819) Active confirmed Problem Acute severe exacerbation of severe persistent asthma (871490403) Severe persistent asthma with (acute) exacerbation (J45.51) Active confirmed Problem Shortness of breath (346664199) Shortness of breath (R06.02) Active confirmed Problem Localized edema (8850025) Localized edema (R60.0) Active confirmed Problem Long-term current use of inhaled steroid (908588431) intermission coordinator (current) use of inhaled steroids (Z79.51) Active confirmed Problem Essential hypertension (96476160) Essential hypertension (I10) Active confirmed Problem Severe persistent allergic asthma (72617546977859214) Severe persistent allergic asthma (J45.50) Active confirmed Problem Thoracic aortic aneurysm without rupture (37191694) Thoracic aortic aneurysm without rupture (I71.2) Active confirmed Problem Bradycardia (10352585) Bradycardia (R00.1) Active confirmed Problem Obstructive sleep apnea syndrome (52853057) DAVID (obstructive sleep apnea) (G47.33) Active confirmed Problem Periodic limb movement disorder (037375695) Periodic limb movement (G47.61) Active confirmed Problem Hyperlipidaemia (44231451) Hyperlipemia (E78.5) Active confirmed Problem Obesity (583598727) Obesity (E66.9) Active conf irmed Problem Fatigue (59851656) Fatigue (R53.83) Active conf irmed Problem Exacerbation of asthma (686925304) Asthma exacerbation (J45.901) Active confirmed Problem Hypertension (33431597) Hypertension (I10) Active confirmed Problem Chest pain (92554441) Chest pain (R07.9) Active confirmed Problem Gastroesophageal reflux disease (638004507) GERD (gastroesophageal reflux disease) (K21.9) Active confirmed Problem Plain X-ray of chest abnormal (finding) (3797521783) Abnormal chest x-ray (R93.89) Active confirmed Problem Angina (318555600) 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
--- OUTSIDE RECORDS SUMMARY | 2025-06-23 16:14 | XMS_ITS | Clinical Summary ---
Author Organization [facility] Address [address] [place] [address] Attn: Epic [place] [address] Care Team Providers Care Reconsignment Clerk Name Role Phone Rubina Dhillon MD Primary Care Provider Allergies Active Allergy Reactions Criticality Noted Date Comments Cephalexin Itching Low 05/02/2014 Hydrocodone Itching Low 05/02/2014 Morphine Anxiety Medium 02/25/2012 Active Problems Problem Noted Date Diagnosed Date Finger stiffness 12/05/2014 Retained orthopedic hardware 09/29/2014 S/P ORIF (open reduction int ernal fixation) fracture, right index finger on 05/05/14 05/11/2014 Finger fracture, right 05/02/2014 Asthma 07/09/2013 Hypoxia 06/27/2013 HTN (hypertension) 05/19/2010 Resolved Problems Problem Noted Date Diagnosed Date Resolved Date Status asthmaticus 06/28/2013 4 Pneumonia, organism unspecified(486) 06/27/2013 09/27/2013 Acute upper GI bleed 05/19/2010 013 Family History Medical History Relation Name Comments Asthma Father Stroke Father Hypertension Mother Relation Name Status Comments Father Mother Alive Social History Tobacco Use Types Packs/Day Years Used Date Smoking Tobacco: Never Smokeless Tobacco: Never Alcohol Use Standard Drinks/Week Comments No 0 (1 standard drink = 0.6 oz pur e alcohol) Sex and Gender Information Value Date Recorded Sex Assigned at Not on file Legal Sex Male 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 Gender Identity Not on file Sexual Orientation Not on file Last Filed Vital Signs Vital Sign Reading Time Taken Comments Blood Pressure 124/78 03/13/2015 3:24 PM CDT Pulse 58 03/13/2015 3:24 PM CDT Temperature - - Respiratory Rate - - Oxygen Saturation - - Inhaled Oxygen Concentration - - Weight 90.7 kg (200 lb) 03/13/2015 3:24 PM CDT Height 175.3 cm (5' 9 ) 03/13/2015 3:24 PM CDT Body Mass Index 29.53 03/13/2015 3:24 PM CDT Plan of Treatment Health Maintenance Due Date Last Done Comments DTAP/TDAP/TD VACCINES (1 - Tdap) 1986 HEPATITIS B VACCINES (1 of 3 - 19+ 3-dose series) 08/22 COLORECTAL SCREENING 2012 Colorectal Cancer Screening 2012 FIT-DNA Q 3 years 2012 FIT/FOBT Q 1 year 2012 Flex Sig/CT Colonography Q 5 years 2012 ZOSTER VACCINE (1 of 2) 2017 INFLUENZA VACCINE (#1) 2025 Medical Devices Explanted Type Area Junior Art Director Device Identifier Shelf Expiration Date Model / Serial / Lot Plate-H Ext 1.5mm Right 246.482 - [id number] Implanted:Qty: 1 on 05/05/2014 Explanted:Qty: 1 on 09/29/2014 by Walker Rollins MD Plate Right: Finger SYNTHES STRATEC 246.482 / / Description:load#[id number] Screw St 1.5x10mm 200.810 - [id number] Implanted:Qty: 1 on 05/05/2014 Explanted:Qty: 2 on 09/29/2014 by Walker Rollins MD Screw Right: Finger [employer]ES [employer]ATEC 200.810 / / Description:load#[id number] Screw St 1.5x7mm 200.807 - [id number] Implanted:Qty: 3 on 05/05/2014 Explanted:Qty: 2 on 09/29/2014 by Wlaker Rollins MD Screw Right: Finger [employer]ES [employer]ATEC 200.807 / / Description:load #[id number] Screw St 1.5x8mm 200.808 - [id number] Implanted:Qty: 2 on 05/05/2014 Explanted:Qty: 2 on 09/29/2014 by Walker Rollins MD Screw Right: Finger [employer]ATEC 200.808 / / Description:load#[id number]-- 05/[address] 1.5x9mm 200.809 - [id number] Implanted:Qty: 2 on 05/05/2014 Explanted:Qty: 2 on 09/29/2014 by Walker Rollins MD Screw Right: Finger [employer]ES [employer]ATEC 200.809 / / Description:load#[id number] Care Teams Reconsignment Clerk Relationship Specialty Start Date End Date Rubina Dhillon MD [address] [address] PCP - General Family Practice 07/09/13
--- OUTSIDE RECORDS SUMMARY | 2025-06-23 16:14 | XMS_ITS | Encounter Summary ---
Author Organization [facility] Address [address] [place] [address] Care Team Providers Care It Account Manager Name Role Phone Rubina Dhillon MD Primary Care Provider [phone] Encounter Details Date Type Department Care Team (Late st Contact Info) Description 10/23/2015 Lab Requisition [facility] [place] [address] [place] [id number] Finn Arreguin, DO NO ADDRESS ON FILE Illness Social History Tobacco Use Types Packs/Day Years Used Date Smoking Tobacco: Never Smokeless Tobacco: Never Alcohol Use Standard Drinks/Week Comments No 0 (1 standard drink = 0.6 oz pure alcohol) last time I drank was in February Sex and Gender Information Value Date Recorded Sex Assigned at Not on file Legal Sex Male 7: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 ROOM 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 Gender Identity Not on file Sexual Orientation Not on file Occupation Industry Job Start Date Job End Date Not on file Not on file Not on file Not on file Not on file Not on file Not on file Not on file documented as of this encounter Plan of Treatment Not on file documented as of this encounter Procedures Procedure Name Priority Date/Time Associated Diagnosis Comments CBC WITH DIFFERENTIAL Routine 10/23/2015 8:23 PM HAT AND CAP DRYING ROOM ATTENDANT Illness BASIC METABOLIC PANEL Routine 10/23/2015 8:23 PM HAT AND CAP DRYING ROOM ATTENDANT Illness documented in this encounter Results * CBC WITH DIFFERENTIAL (10/23/2015 8:23 PM HAT AND CAP DRYING ROOM ATTENDANT) WBC 4.2 4.2 - 9.1 K/uL 10/23/2015 10:37 PM HAT AND CAP DRYING ROOM ATTENDANT [facility] RBC 4.93 4.63 - 6.08 M/uL 10/23/2015 10:37 PM HAT AND CAP DRYING ROOM ATTENDANT [facility] [place] HEMOGLOBIN 15.1 13.7 - 17.5 g/dL 10/23/2015 10:37 PM HAT AND CAP DRYING ROOM ATTENDANT [facility] [place] HEMATOCRIT 45.4 40.1 - 51.0 % 10/23/2015 10:37 PM HAT AND CAP DRYING ROOM ATTENDANT [facility] [place] MCV 92.1 79.0 - 92.2 fL 10/23/2015 10:37 PM HAT AND CAP DRYING ROOM ATTENDANT [facility] [place] MCH 30.6 25.7 - 32.2 pg 10/23/2015 10:37 PM HAT AND CAP DRYING ROOM ATTENDANT [facility] [place] MCHC 33.3 32.3 - 36.5 g/dL 10/23/2015 10:37 PM HAT AND CAP DRYING ROOM ATTENDANT [facility] [place] RDW 14.2 11.0 - 14.5 % 10/23/2015 10:37 PM HAT AND CAP DRYING ROOM ATTENDANT [facility] [place] RDW-STDEV 46.4 36.9 - 56.9 fL 10/23/2015 10:37 PM HAT AND CAP DRYING ROOM ATTENDANT [facility] [place] PLATELETS 258 130 - 400 K/uL 10/23/2015 10:37 PM HAT AND CAP DRYING ROOM ATTENDANT [facility] [place] MPV 10.2 10.0 - 14.8 fL 10/23/2015 10:37 PM HAT AND CAP DRYING ROOM ATTENDANT [facility] [place] NEUTROPHILS 51 34 - 68 % 10/23/2015 10:37 PM HAT AND CAP DRYING ROOM ATTENDANT [facility] [place] LYMPHOCYTES 30 22 - 53 % 10/23/2015 10:37 PM HAT AND CAP DRYING ROOM ATTENDANT [facility] [place] MONOCYTES 12 5 - 12 % 10/23/2015 10:37 PM HAT AND CAP DRYING ROOM ATTENDANT [facility] [place] EOSINOPHILS 7 1 - 7 % 10/23/2015 10:37 PM HAT AND CAP DRYING ROOM ATTENDANT [facility] [place] BASOPHILS 1 0 - 1 % 10/23/2015 10:37 PM HAT AND CAP DRYING ROOM ATTENDANT [facility] [place] NEUTROPHIL ABSOLUTE 2.14 1.78 - 5.38 K/uL 10/23/2015 10:37 PM HAT AND CAP DRYING ROOM ATTENDANT [facility] [place] LYMPHOCYTE ABSOLUTE 1.26 1.20 - 3.40 K/uL 10/23/2015 10:37 PM HAT AND CAP DRYING ROOM ATTENDANT [facility] [place] MONOCYTE ABSOLUTE 0.48 0.30 - 0.82 K/uL 10/23/2015 10:37 PM [facility] [place] EOSINOPHIL ABSOLUTE 0.28 0.04 - 0.54 K/uL 10/23/2015 10:37 PM [facility] [place] BASOPHILS ABSOLUTE 0.02 0.01 - 0.08 K/uL 10/23/2015 10:[address] [facility] IMMATURE GRANULOCYTES 0 % 10/23/2015 10:37 PM [facility] IMMATURE GRANULOCYTES ABSOLUTE 0.00 K/uL 10/23/2015 10:37 PM [facility] Blood Collection / Unknown 10/23/2015 8:23 PM HAT AND CAP DRYING ROOM ATTENDANT 10/23/2015 8:23 PM HAT AND CAP DRYING ROOM ATTENDANT us Finn Arreguin DO HEMATOLOGY ORDERABLES Final Res ult [facility] CLIA # [id number] [address] [place] [address] * (ABNORMAL) BASIC METABOLIC PANEL (10/23/2015 8:23 PM HAT AND CAP DRYING ROOM ATTENDANT) SODIUM 139 136 - 145 mmol/L 10/23/2015 10:54 PM [facility] POTASSIUM 4.5 3.5 - 5.1 mmol/L 10/23/2015 10:54 PM [facility] CHLORIDE 100 98 - 107 mmol/L 10/23/2015 10:54 PM [facility] CO2 25 22 - 29 mmol/L 10/23/2015 10:54 PM [facility] CALCIUM 9.6 8.6 - 10.0 mg/dL 10/23/2015 10:54 PM [facility] BUN 13 6 - 20 mg/dL 10/23/2015 10:54 PM [facility] CREATININE 1.51(H) 0.67 - 1.17 mg/dL 10/23/2015 10:54 PM [facility] GLUCOSE 115(H) 74 - 106 mg/dL 10/23/2015 10:54 PM [facility] [employer] [facility] GFR 50(L) >=60 mL/min/1.7 3 sq meter 10/23/2015 10:54 PM HAT AND CAP DRYING ROOM ATTENDANT [employer] [facility] - ID [employer] [facility] Comment: eGFR has not been validated for use in the elderly (> 70 years of age), women, patients with serious co-morbid conditions, or persons with extremes of body size or muscle mass and should also be interpreted with caution in patients with acute kidney failure, dialysis dependent patients, patients reporting exceptional dietary intake (e.g. vegetarian diet, high protein diets, creatine supplementation), and patients with severe liver disease. Based on National Kidney Disease Education Program If patient is , please refer to the GFR result. GFR, 60 >=60 mL/min/1.7 3 sq meter 10/23/2015 10:54 PM HAT AND CAP DRYING ROOM ATTENDANT [facility] ANION GAP 14 12 - 20 mmol/L 10/23/2015 10:54 PM HAT AND CAP DRYING ROOM ATTENDANT [facility] Blood Collection / Unknown 10/23/2015 8:23 PM HAT AND CAP DRYING ROOM ATTENDANT 10/23/2015 8:23 PM HAT AND CAP DRYING ROOM ATTENDANT us Finn Arreguin DO CHEMISTRY ORDERABLES Final Resu lt [facility] CLIA # [id number] [address] [place] [address] documented in this encounter Visit Diagnoses Diagnosis Illness Other unknown and unspecified cause of morbidity or mortality documented in this encounter Care Teams It Account Manager Relationship Specialty Start Date End Date Rubina Dhillon MD [address] [address] PCP - General Family Practice 07/09/13 documented as of this encounter
--- OUTSIDE RECORDS SUMMARY | 2025-06-23 16:14 | XMS_ITS | Encounter Summary ---
Author Organization [facility] Address [address] [place] [address] Care Team Providers Care It Systems Engineer Name Role Phone Rubina Dhillon MD Primary Care Provider Encounter Details Date Type Department Care Team (Late st Contact Info) Description 06/15/2014 Ancillary Orders [facility] Orthopedics - Orthopedic [facility] [address] [place] [address] Walker Rollins MD [address] [facility] [address] [place] [address] Finger pain, right (Primary Dx) Social History Tobacco Use Types Packs/Day Years Used Date Smoking Tobacco: Never Smokeless Tobacco: Never Alcohol Use Standard Drinks/Week Comments No 0 (1 standard drink = 0.6 oz pure alcohol) last time I drank was in February Sex and Gender Information Value Date Recorded Sex Assigned at Not on file Legal Sex Male 7:10 AM TECHNICAL SPEC Gender Identity Not on file Sexual Orientation Not on file Occupation Industry Job Start Date Job End Date Not on file Not on file Not on file Not on file documented as of this encounter Plan of Treatment Not on file documented as of this encounter Results * XR FINGER(S) RIGHT (06/15/2014 9:56 AM CDT) Anatomical Region Laterality Modality Wrist / Hand Computed Radiogr aphy Narrative 06/17/2014 9:42 AM CDT Multiple views I ordered and reviewed to demonstrate the right index finger reveals continued satisfactory alignment. Hardware remains in satisfactory position. There is a butterfly fragment that is stable in position. Procedure Note Walker Rollins MD - 06/17/2014 Multiple views I ordered and reviewed to demonstrate the right indexfinger reveals continued satisfactory alignment. Hardware remains insatisfactory position. There is a butterfly fragment that is stable inposition. us Walker Rollins MD DIAGNOSTIC IMAGING ORDERABL ES Final Result documented in this encounter Visit Diagnoses Diagnosis Finger pain, right- Primary Pain in limb documented in this encounter Care Teams It Systems Engineer Relationship Specialty Start Date End Date Rubina Dhillon MD [address] [address] PCP - General Family Practice 07/09/13 documented as of this encounter
--- OUTSIDE RECORDS SUMMARY | 2025-06-23 16:14 | XMS_ITS | Clinical Summary ---
Author Organization [facility] Address [address] [place] [address] Care Team Providers Care Tariff Compiling Clerk Name Role Phone Rubina Dhillon MD Primary Care Provider Allergies Active Allergy Reactions Criticality Noted Date Comments Cephalexin Itching Low 05/02/2014 Hydrocodone Itching Low 05/02/2014 Morphine Anxiety Medium 02/25/2012 Medications metoprolol succinate ER 24 hour (TOPROL XL) 25 mg Oral tablet Take 2 Tabs by mouth daily. Patient already has medicationl 1 Tab 0 2 Active montelukast (SINGULAIR) 10 mg Oral tablet Take 10 mg by mouth daily. Active fluticasone (FLONASE) 50 mcg/spray Both Nostril SpSn Administer 2 Sprays in each nostril daily. Active lisinopril-hydr ochlorothiazide (ZESTORETIC) 20-25 mg Oral tablet Take 1 Tab by mouth daily. Active omeprazole (PRILOSEC) 20 mg Oral CpDR Take 20 mg by mouth daily. Active ascorbic acid (VITAMIN C) 500 mg Oral tablet Take 500 mg by mouth daily. Active albuterol 90 mcg/Actuation Inhalation HFAA HFA inhaler Take 2 Puffs by inhalation every 6 hours as needed for Shortness of Breath. 8.5 Gram 11 3 Active SYMBICORT 160-4.5 mcg/actuation Inhalation HFAA Take 2 Puffs by inhalation 2 times daily. Gargle and rinse mouth after use. 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 Gender Identity Not on file Sexual Orientation Not on file Occupation Industry Job Start Date Job End Date Not on file Not on file Not on file Not on file Not on file Not on file Not on file Not on file Last Filed Vital Signs Vital Sign Reading Time Taken Comments Blood Pressure 124/78 03/13/2015 3:24 PM CDT Pulse 58 03/13/2015 3:24 PM CDT Temperature 35.9 C (96.6 F) 09/29/2014 10:00 AM PILE HEADER Respiratory Rate 16 09/29/2014 9:45 AM PILE HEADER Oxygen Saturation 95% 09/29/2014 10:00 AM PILE HEADER Inhaled Oxygen Concentration - - Weight 90.7 [...] (#1) 2025 Medical Devices Explanted Type Area Bellperson Device Identifier Shelf Expiration Date Model / Serial / Lot Plate-H Ext 1.5mm Right 246.482 - [id number] Implanted:Qty: 1 on 05/05/2014 at [facility] Explanted:Qty: 1 on 09/29/2014 by Walker Rollins MD at [facility] Plate Right: Finger SYN[employer]ES STRATEC 246.482 / / Description:load#[id number] Screw St 1.5x7mm 200.807 - [id number] Implanted:Qty: 3 on 05/05/2014 at [facility] Explanted:Qty: 2 on 09/29/2014 by Walker Rollins MD at [facility] Screw Right: Finger SYN[employer]ES STRATEC 200.807 / / Description:load #[id number] Screw St 1.5x8mm 200.808 - [id number] Implanted:Qty: 2 on 05/05/2014 at [facility] Explanted:Qty: 2 on 09/29/2014 by Walker Rollins MD at [facility] Screw Right: Finger SY[employer]ES STRATEC 200.808 / / Description:load#[id number]-- 05/[address] 1.5x9mm 200.809 - [id number] Implanted:Qty: 2 on 05/05/2014 at [facility] Explanted:Qty: 2 on 09/29/2014 by Walker Rollins MD at [facility] Screw Right: Finger SYN[employer]ES STRATEC 200.809 / / Description:load#[id number] Screw St 1.5x10mm 200.810 - [id number] Implanted:Qty: 1 on 05/05/2014 at [facility] Explanted:Qty: 2 on 09/29/2014 by Walker Rollins MD at [facility] Screw Right: Finger SYN[employer]ES STRATEC 200.810 / / Description:load#[id number] Insurance [employer] Advance Directives For more information, please contact: [phone] * Full Code (Latest Code Status on File) Date Activated Date Inactivated Comments 09/29/2014 6:40 AM 09/29/2014 12:22 PM * Full Code Date Activated Date Inactivated Comments 05/05/2014 10:45 AM 05/05/2014 4:39 PM * Full Code Date Activated Date Inactivated Comments 05/05/2014 10:13 AM 05/05/2014 10:45 AM * Full Code Date Activated Date Inactivated Comments 06/29/2013 8:10 AM 07/02/2013 4:54 PM * Full Code Date Activated Date Inactivated Comments 06/28/2013 11:26 AM 06/29/2013 8:10 AM Care Teams Tariff Compiling Clerk Relationship Specialty Start Date End Date Rubina Dhillon MD [address] [facility] [address] [place] [phone] PCP - General Family Practice 07/09/13
--- NOTE | 2025-06-23 16:15 | ECG_ITS ---
[employer] Test Date: 2025-06-23 Pat Name: Madi Lowe Department: Room: Gender: Male Donor Relations Associate: : 1965 Requested By: Shikha Phillip Order Number: [id number] Mason MD: Manjit Alexis M.D. Measurements Intervals [place] Rate: 79 P: 17 MD: 196 QRS: -6 QRSD: 98 T: 63 QT: 403 QTc: 463 Interpretive Statements SINUS RHYTHM POSSIBLE LEFT ATRIAL ENLARGEMENT [-0.1mV P-WAVE IN V1/V2] INCOMPLETE RIGHT BUNDLE BRANCH BLOCK [90+ ms QRS DURATION, TERMINAL R IN V1/V2, 40+ ms S IN I/aVL/V4/V5/V6] Compared to ECG 12/21/2024 09:59:57 Incomplete right bundle-branch block now present Electronically Signed On 06-23-2025 17:10:50 CDT by Manjit Alexis M.D. [id number] [id number]
--- NOTE | 2025-06-23 16:16 | XRR_ITS ---
PROCEDURE INFORMATION: Exam: XR Chest Exam date and time: 06/23/2025 4:47 PM Age: 59 years old Clinical indication: Pain; Chest pressure; Additional info: Chest pain TECHNIQUE: Imaging protocol: Radiologic exam of the chest. Views: 1 view. COMPARISON: CT angio chest PE protcl [id number] 12/21/2024 5:43 PM FINDINGS: Lungs: No infiltrate/edema or consolidation. Pleural spaces: No pleural effusion or pneumothorax. Heart/Mediastinum: Upper limits of normal cardiac size, without significant change with prior exam. Vasculature: Mild calcification thoracic aorta. Bones/joints: Visualized osseous structures show no acute abnormality. Spondylotic change thoracic spine. XR/XR chest 1V portable [id number] IMPRESSION: No acute findings.
[2025-06-23 16:38] LABS: Hematocrit 27.8 % (37-53); Hemoglobin 8.60 g/dL (11.27-16.99); Mean Corpuscular HGB Conc 30.9 g/dL (30-55); Mean Corpuscular Hemoglobin 26.0 pg (27-33); Mean Corpuscular Volume 84.0 fl (82-101); Nucleated Red Blood Cells % 0 %; Platelet Count 163 10^3/cmm (157-399); Red Blood Count 3.31 10^6/uL (3.85-5.65); White Blood Count 6.07 10^3/uL (3.29-11.43)
[2025-06-23 17:01] LABS: Troponin(5th) Baseline 14 ng/L (0-15)
[2025-06-23 17:43] LABS: Alanine Aminotransferase 35 U/L (0-41); Albumin Level 3.5 g/dL (3.5-5.2); Alkaline Phosphatase 101 U/L (40-130); Anion Gap 17.1 (5-19); Aspartate Amino Transferase 54 U/L (0-40); Blood Urea Nitrogen 12 mg/dL (6-20); Calcium 8.4 mg/dL (8.5-10.5); Carbon Dioxide 21 mmol/L (22-29); Chloride 103 mmol/L (98-107); Creatinine Clr Calc Pharmacy 86.2865; Globulin 3.6 g/dL (1.3-4.6); Glucose 226 mg/dL (65-115); NT Pro B Type Natriuretic Pept 288 pg/mL (0-125); Osmolality Calculated 291 mOsm/kg (285-295); Potassium 4.1 mmol/L (3.5-5.1); Sodium 137 mmol/L (136-145); Total Protein 7.1 g/dL (6.6-8.7)
--- NOTE | 2025-06-23 17:49 | W.ED.CHESTPA ---
HPI - Chest Pain General: Chief Complaint: Chest Pain Stated Complaint: CP SOB Time Seen by Provider: 06/23/25 17:37 History of Present Illness: 59-year-old man with a history of obesity, hypertension, polymyalgia rheumatica, coronary artery disease, diabetes, hyperlipidemia, asthma, sleep apnea who presents emergency room with chest pain. He has been having some shortness of breath and was able to walk 50 feet without becoming short of breath. He has had some pressure in his chest. He says these are similar symptoms as when he had a heart cath and 2 stents a couple months back. No fevers. No altered mental status. No new cough. No focal motor deficits. Related Data Home Medications ?Medication ?Instructions ?Recorded ?Confirmed losartan 100 mg tablet 100 mg PO DAILY 11/03/24 01/16/25 metoprolol tartrate 100 mg tablet 100 mg PO BID 12/21/24 01/16/25 Previous Rx's ?Medication ?Instructions ?Recorded fluticasone propionate 50 1 spray intranasal BID PRN nasal 10/24/22 mcg/actuation nasal congestion #16 grams spray,suspension (Flonase Allergy Relief) citalopram 20 mg tablet 40 mg (2 x 20 mg) PO DAILY 30 days 03/04/24 #60 tabs aspirin 81 mg tablet,delayed 81 mg PO DAILY #90 tabs 11/05/24 release atorvastatin 40 mg tablet 80 mg (2 x 40 mg) PO BEDTIME #90 11/05/24 tabs nitroglycerin 0.4 mg sublingual 0.4 mg sublingual Q5M PRN chest 01/05/25 tablet pain #20 tabs clopidogrel 75 mg tablet 75 mg PO DAILY #90 tabs 01/10/25 amlodipine 2.5 mg tablet See Rx Instructions .Route 06/06/25 .COMPLEX #90 tabs bupropion HCl 150 mg 24 hr tablet, See Rx Instructions .Route 06/06/25 extended release .COMPLEX #90 tabs Allergies Allergy/AdvReac Type Severity Reaction Status Date / Time No Known Allergies Allergy Verified 01/10/25 13:22 Review of Systems Narrative: Constitutional symptoms: Negative except as documented in HPI. Skin symptoms: Negative except as documented in HPI. Eye symptoms: Negative except as documented in HPI. ENMT symptoms: Negative except as documented in HPI. Respiratory symptoms: Negative except as documented in HPI. Cardiovascular symptoms: Negative except as documented in HPI. Gastrointestinal symptoms: Negative except as documented in HPI. Genitourinary symptoms: Negative except as documented in HPI. Musculoskeletal symptoms: Negative except as documented in HPI. Neurologic symptoms: Negative except as documented in HPI. Psychiatric symptoms: Negative except as documented in HPI. Endocrine symptoms: Negative except as documented in HPI. PFSH ED PFSH: Medical History (Updated 06/23/25 @ 19:34 by Shikha Stoddard MD) Hypertension Chest pain Immunization counseling High risk medication use HTN (hypertension) Major depressive disorder Chronic steroid use Polymyalgia rheumatica Asthma Surgical History Hx of cataract surgery 08/26/23, 09/09/23 - Dr Smith History of umbilical hernia repair (01/26/20) H/O esophagogastroduodenoscopy Status post colonoscopy History of nasal surgery H/O knee surgery H/O hand surgery History of appendectomy Family History Father Lung disease Asthma Denies family history of Diabetes Clotting disorder Dementia Chronic kidney disease (CKD) Social History Smoking and tobacco/nicotine status: never used tobacco/nicotine Alcohol intake: never Substance/Drug Use: never Lives independently: Yes Household members: spouse Marital status: Current occupational status: employed Current occupational exposures/hazards: Yes Do you think of yourself as: Straight/Heterosexual Current gender identity: Male Physical Exam Narrative: EXAM NARRATIVE: General: Alert, no acute distress. Skin: Warm, dry. Head: Normocephalic, atraumatic. Neck: Supple, trachea midline. Eye: Extraocular movements are intact. Ears, nose, mouth and throat: mucosa moist. Cardiovascular: Regular, Normal peripheral perfusion. Respiratory: Lungs are clear to auscultation, respirations are non-labored, breath sounds are equal, Symmetrical chest wall expansion. Gastrointestinal: Soft, Nontender, Non distended Musculoskeletal: Normal ROM, no deformity. Neurological: Alert and oriented, No focal neurological deficit observed. Psychiatric: Cooperative, appropriate mood & affect. Course Vital Signs: Vital signs: Vital Signs Temperature 98.7 F 06/23/25 16:08 Pulse Rate 76 06/23/25 19:21 Respiratory Rate 17 06/23/25 19:15 Blood Pressure 152/81 06/23/25 19:21 Pulse Oximetry 93 06/23/25 19:21 Oxygen Delivery Me thod Room Air 06/23/25 19:15 MDM - Chest Pain Medical Decision Making Differential diagnosis for patient with chest pain includes but is not limited to and based on the above HPI, review of systems and physical exam: Pneumonia. unstable angina. angina. Acute coronary syndrome / DC. Pulmonary embolism. Costochondritis / musculoskeletal. Pleurisy. Pericarditis. Esophageal spasm. Pancreatis. Cholecystitis. Orders placed to evaluate differential diagnosis based on the above differential, HPI and physical exam EKG: Time 1611. Rate 79. Normal sinus rhythm, No ST-T changes, no ectopy, incomplete right bundle branch block, This was reviewed and interpreted by myself the ER physician at 1616 Repeat EKG: Normal sinus rhythm, No ST-T changes, no ectopy, normal MD & QRS intervals, This was reviewed and interpreted by myself the ER physician Chest x-ray: No acute process. No infiltrate. No pneumothorax. This was reviewed and interpreted by myself the emergency room physician. I also reviewed the radiology report. Lab Review: Laboratory results were reviewed and interpreted by myself the emergency room physician. No leukocytosis. Stable chronic anemia with a hemoglobin of 8.6. No renal failure. BUN and creatinine are 12 and 1.1 which is at his baseline. Initial troponin is slightly elevated at 14 and 16. Unchanged. I reviewed the patient's medical record. 69-year-old male with a history of coronary artery disease, obesity, ischemic cardiomyopathy, chronic migraines, sleep apnea, chronic kidney disease, hypertension, hyperlipidemia, COPD, chronic pain syndrome and diabetes Reexamination: Patient remained stable. No increased work of breathing. No altered mental status. No focal motor deficits. Consultation: I spoke with Dr. Lockett who is on-call for the hospitalist service who agrees to admission Consultation: I spoke with Dr. Lutz who is on-call for cardiology who agrees with the admission and will consult if needed Assessment and plan: unstable angina Chest pain Coronary artery disease ? Heart score recommends admission. Patients are similar to previous. -I discussed the patient with the hospitalist on-call who is admitting the patient. - Discussed findings and plan with patient. Answered any questions. - All laboratory values were reviewed and interpreted personally by myself, the ER physician - All imaging was reviewed and interpreted personally by myself, the ER physician. - Evaluation and treatment of this problem were appropriate in the emergency setting Lab Data 06/23/25 16:26 06/23/25 16:26 Radiology Impressions Chest X-Ray 06/23/25 16:16 IMPRESSION: No acute findings. Laboratory Results WBC 6.07 10^3/uL (3.29-11.43) 06/23/25 16: RBC 3.31 10^6/uL (3.85-5.65) L 06/23/25 16:26 Hgb 8.60 g/dL (11.27-16.99) L 06/23/25 16: Hct 27.8 % (37-53) L 06/23/25 16: MCV 84.0 fl (82-101) 06/23/25 16: MCH 26.0 pg (27-33) L 06/23/25 16: MCHC 30.9 g/dL (30-55) 06/23/25 16:26 RDW 18.6 % (12.1-15.1) H 06/23/25 16: Plt Count 163 10^3/cmm (157-399) 06/23/25 16: MPV 9.9 fL (7.4-10.4) 06/23/25 16: Neut % (Auto) 68.7 % 06/23/25 16: Lymph % (Auto) 15.3 % 06/23/25 16:26 Mcdonald % (Auto) 12.7 % 06/23/25 16: Eos % (Auto) 2.1 % 06/23/25 16:26 Baso % (Auto) 0.7 % 06/23/25 16: Neut # (Auto) 4.17 10^3/uL (1.8-7.7) 06/23/25 16: Lymph # (Auto) 0.9 10^3/uL (0.8-4.8) 06/23/25 16:26 Mcdonald # (Auto) 0.8 10^3/uL (0.2-0.9) 06/23/25 16:26 Eos # (Auto) 0.1 10^3/uL (0.0-0.8) 06/23/25 16:26 Baso # (Auto) 0.0 10^3/uL (0.0-0.1) 06/23/25 16:26 Nucleated RBC % (auto) 0 % 06/23/25 16: Nucleated RBCs # 0.0 /100WBC 06/23/25 16:26 Sodium 137 mmol/L (136-145) 06/23/25 16:26 Potassium 4.1 mmol/L (3.5-5.1) 06/23/25 16:26 Chloride 103 mmol/L (98-107) 06/23/25 16:26 Carbon Dioxide 21 mmol/L (22-29) L 06/23/25 16:26 Anion Gap 17.1 (5-19) 06/23/25 16:26 BUN 12 mg/dL (6-20) 06/23/25 16:26 Creatinine 1.1 mg/dL (0.7-1.2) 06/23/25 16:26 GFR Calculation 69.0 mL/min (90-130) L 06/23/25 16:26 Glucose 226 mg/dL (65-115) H 06/23/25 16:26 Calculated Osmolality 291 mOsm/kg (285-295) 06/23/25 16:26 Calcium 8.4 mg/dL (8.5-10.5) L 06/23/25 16:26 Total Bilirubin 0.5 mg/dL (0.15-1.2) 06/23/25 16:26 AST 54 U/L (0-40) H 06/23/25 16:26 ALT 35 U/L (0-41) 06/23/25 16:26 Alkaline Phosphatase 101 U/L (40-130) 06/23/25 16:26 Troponin T Baseline 14 ng/L (0-15) 06/23/25 16:26 Troponin T 120 Minute 14.96 ng/L (0-15) 06/23/25 18:46 Delta Troponin T 0.96 ABS# (0-10) 06/23/25 18:46 NT-Pro-B Natriuret Pep 288 pg/mL (0-125) H 06/23/25 16:26 Total Protein 7.1 g/dL (6.6-8.7) 06/23/25 16:26 Albumin 3.5 g/dL (3.5-5.2) 06/23/25 16:26 Globulin 3.6 g/dL (1.3-4.6) 06/23/25 16:26 All radiology interpretation(s) finalized by discharge Clincial Decision Support The following clinical decision support tools were used to aid in care of the patient HEART Score -> History: Highly Suspicious, EKG: Non-specific Changes, Age: 45-64 yrs, Risk Factors: >/=3 Risk Factors, Troponin: Baseline Trop <16 ng/L. Resulting HEART Score: 6. Discharge Plan Discharge Patient Disposition: Placed in Observation Admit Provider: Seth Lockett Clinical Impression: Unstable angina, Chest pain, CAD (coronary artery disease) Coding Level of Care Code ED [employer]ator for [facility] Heart Score HEART Score Components History: Highly Suspicious EKG: Non-specific Changes Age: 45-64 yrs Risk Factors: >/=3 Risk Factors Troponin: Baseline Trop <16 ng/L HEART Score RESULT HEART Score: 6
--- NOTE | 2025-06-23 18:16 | ECG_ITS ---
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 Measurements Intervals [place] Rate: 75 P: 9 [place]: 194 QRS: -3 QRSD: 100 T: 72 QT: 411 QTc: 459 Interpretive Statements SINUS RHYTHM INCOMPLETE RIGHT BUNDLE BRANCH BLOCK [90+ ms QRS DURATION, TERMINAL R IN V1/V2, 40+ ms S IN I/aVL/V4/V5/V6] VOLTAGE CRITERIA FOR LVH [MEETS CRITERIA IN ONE OF: R(aVL), S(V1), R(V5), R(V5/V6)+S(V1)] Compared to ECG 06/23/2025 16:11:17 Left ventricular hypertrophy now present Electronically Signed On 06-23-2025 18:53:01 CDT by Manjit Alexis M.D. [id number] [id number]
[2025-06-23 19:30] LABS: Troponin 5 2HR 14.96 ng/L (0-15); Troponin 5 2HR Delta 0.96 ABS# (0-10)
[2025-06-23] MEDS: heparin 5,000 unit/mL INJ 1 mL 5000 UNIT SUBCUT (22:00)
--- NOTE | 2025-06-23 22:16 | ECG_ITS ---
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 Measurements Intervals [place] Rate: 66 P: -16 [place]: 184 QRS: -5 QRSD: 97 T: 64 QT: 435 QTc: 459 Interpretive Statements SINUS RHYTHM POSSIBLE RIGHT VENTRICULAR CONDUCTION DELAY [RSR (QR) IN V1/V2] Compared to ECG 06/23/2025 18:47:32 Incomplete right bundle-branch block no longer present Left ventricular hypertrophy no longer present Electronically Signed On 06-23-2025 23:28:24 CDT by Manjit Alexis M.D. [id number]
[2025-06-23 22:49] LABS: Troponin 5 6HR 14.11 ng/L (0-15); Troponin 5 6HR Delta 0.11 ng/L (0-12)
--- NOTE | 2025-06-23 22:51 | PC.NURSE ---
Patient declined changing into hospital gown at this time. Hospital gown and belongings bag available and present in patient's room.
[2025-06-24] VITALS (8 sets, daily range): BP systolic 145–171; BP diastolic 71–95; PULSE 68–85; RESP 16–20; O2SAT 95–99
--- NOTE | 2025-06-24 00:23 | PM.HP ---
Providers/Chief Complaint Admitting Physician: Seth Lockett MD Primary Care Provider: Walker Sarabia MD Chief Complaint: CP SOB History of Present Illness As per the patient and the retrospective chart review Madi Lowe is a 59 year old male with past medical history of hypertension and recent stentingTo RCA in October came with chest pain. The patient reported compliance to his medication however he has been off Plavix since 1-1/2-week. The patient chest pain was central in nature no radiation to arm and some mild radiation to back. The patient reported mild dizziness and blurriness, however did not report any nausea vomiting. He also reported mild shortness of breath but it was not worsening. No orthopnea or PND and nor lower leg swellings. The patient reported the chest pain feels as it was he had when he was having [place]. Therefore came to ER. No fever, chills, abdominal pain or no change in his urinary or bowel habits. Patient does not smoke and no other drug abuse. Medications/Allergies Home Medications ?Medication ?Instructions ?Recorded ?Confirmed ?Last Taken ?Type fluticasone propionate 50 1 spray intranasal BID PRN nasal 10/24/22 01/16/25 12/24/24 05:00 Rx mcg/actuation nasal congestion #16 grams spray,suspension (Flonase Allergy Relief) citalopram 20 mg tablet 40 mg (2 x 20 mg) PO DAILY 30 days 03/04/24 01/16/25 12/24/24 05:00 Rx #60 tabs losartan 100 mg tablet 100 mg PO DAILY 11/03/24 01/16/25 12/24/24 05:00 History aspirin 81 mg tablet,delayed 81 mg PO DAILY #90 tabs 11/05/24 01/16/25 12/24/24 05:00 Rx release atorvastatin 40 mg tablet 80 mg (2 x 40 mg) PO BEDTIME #90 11/05/24 01/16/25 12/23/24 22:00 Rx tabs metoprolol tartrate 100 mg tablet 100 mg PO BID 12/21/24 01/16/25 12/24/24 05:00 History nitroglycerin 0.4 mg sublingual 0.4 mg sublingual Q5M PRN chest 01/05/25 01/16/25 Unknown Rx tablet pain #20 tabs clopidogrel 75 mg tablet 75 mg PO DAILY #90 tabs 01/10/25 01/16/25 Unknown Rx amlodipine 2.5 mg tablet See Rx Instructions .Route 06/06/25 Unknown Rx .COMPLEX #90 tabs bupropion HCl 150 mg 24 hr tablet, See Rx Instructions .Route 06/06/25 Unknown Rx extended release .COMPLEX #90 tabs Allergies Allergy/AdvReac Type Severity Reaction Status Date / Time No Known Allergies Allergy Verified 01/10/25 13:22 PFSH Acute PFSH: Medical History (Updated 06/23/25 @ 19:34 by Shikha Stoddard MD) Hypertension Chest pain Immunization counseling High risk medication use HTN (hypertension) Major depressive disorder Chronic steroid use Polymyalgia rheumatica Asthma Surgical History Hx of cataract surgery 08/26/23, 09/09/23 - Dr Smith History of umbilical hernia repair (01/26/20) H/O esophagogastroduodenoscopy Status post colonoscopy History of nasal surgery H/O knee surgery H/O hand surgery History of appendectomy Family History Father Lung disease Asthma Denies family history of Diabetes Clotting disorder Dementia Chronic kidney disease (CKD) Social History Smoking and tobacco/nicotine status: never used tobacco/nicotine Alcohol intake: never Substance/Drug Use: never Lives independently: Yes Household members: spouse Marital status: Current occupational status: employed Current occupational exposures/hazards: Yes Do you think of yourself as: Straight/Heterosexual Current gender identity: Male Vitals/I&O/Wt Last Vital Signs Temp 98.7 F 06/23/25 16:08 Pulse 74 06/23/25 23:25 Resp 28 H 06/23/25 23:25 BP 166/97 06/23/25 23:25 Pulse Ox 97 06/23/25 23:25 O2 Del Method Room Air 06/23/25 23:25 06/23/25 06/23/25 06/24/25 14:59 22:59 06:59 Output Total 400 / 400 Balance -400 / -400 Weight last 48 hrs Weight 99.79 kg Physical Exam Narrative: General: Alert and oriented, lying comfortably without any distress HEENT: Normocephalic, atraumatic, grossly unremarkable exam Cardio: normal rate rhythm, normal S1-S2 without any murmurs, rubs, or gallops and JVD normal Respiratory: normal vascular breathing on auscultation without any wheezes, stridor, rhonchi GI: Abdomen soft, nontender, nondistended, normoactive bowel sounds present all 4 quadrants, Neuro: intact cranial nerves motor and sensory and cerebellar/coordination function without any focal neurological deficit Behavior: Appropriate and cooperative Extremities: Adequate palpable pulses, mild trace edema Skin: grossly unremarkable exam Data 06/23/25 16:26 06/23/25 16:26 A&P Assessment and plan 1. Unstable angina: - Delta troponin stable, -Resume home medication aspirin and Plavix with statins -Continue beta-blockers metoprolol 50 mg twice daily -Cardiology on board, consulted, will follow in the morning - Nitro as needed for chest pain -Telemetry monitoring - Serial EKGs 2. CAD (coronary artery disease): - Continue dual antiplatelet therapy and statins - Nitro as needed for chest pain 3. Hypertension: - Amlodipine 5 mg daily - Continue home dose losartan 100 mg daily - Monitor blood pressure and maintain normal vitals 4. Generalized anxiety disorder: - Resume home medications, need reconciliation, to continue citalopram 40 mg daily and bupropion 150 mg extended release daily 5. Hyperlipidemia LDL goal <70: Continue high-dose statins 6. Diabetes mellitus: Recent HbA1c 6.8% Insulin sliding scale. Plan: VTE: Heparin twice daily PPI daily Cardiac diet PDMP PDMP Reviewed: Not Reviewed Attestations Medical Necessity Statement*: Patient will stay over midnight for further evaluation by cardiology for atypical chest pain and management accordingly Time Spent in Patient Care: 16 - 35 minutes (>than 50% of time spent in counselling and/or direct pt care on unit). Other Attestations: Patient condition has been discussed at length with the patient/family, I have independently reviewed the chart labs imaging/diagnostics/EKG. 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 The patient/family has been informed about the current condition and further plan of care. Agreed with the plan of care and understood without any language barrier. Every effort was made to ensure accuracy of supervisor production. Any obvious errors or omissions should be clarified with the author of the document. Coding Level of Care Code Acute Code for Chg Fwd Diagnoses Unstable angina I20.0 CAD (coronary artery disease) I25.10 Hypertension I10 Generalized anxiety disorder F41.1 Hyperlipidemia LDL goal <70 E78.5 Diabetes mellitus E11.9
--- NOTE | 2025-06-24 00:54 | ECG_ITS ---
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 Measurements Intervals [place] Rate: 80 P: 60 [place]: 198 QRS: -11 QRSD: 102 T: 70 QT: 389 QTc: 449 Interpretive Statements SINUS RHYTHM WITH OCCASIONAL SUPRAVENTRICULAR PREMATURE COMPLEXES INCOMPLETE RIGHT BUNDLE BRANCH BLOCK [90+ ms QRS DURATION, TERMINAL R IN V1/V2, 40+ ms S IN I/aVL/V4/V5/V6] VOLTAGE CRITERIA FOR LVH [MEETS CRITERIA IN ONE OF: R(aVL), S(V1), R(V5), R(V5/V6)+S(V1)] NONSPECIFIC T-WAVE ABNORMALITY Compared to ECG 06/23/2025 22:20:56 Incomplete right bundle-branch block now present Left ventricular hypertrophy now present T-wave abnormality now present Electronically Signed On 06-25-2025 14:38:21 CDT by Manjit Alexis M.D. [email or web address]
[2025-06-24 04:54] LABS: Hematocrit 26.5 % (37-53); Hemoglobin 8.30 g/dL (11.27-16.99); Mean Corpuscular HGB Conc 31.3 g/dL (30-55); Mean Corpuscular Hemoglobin 26.3 pg (27-33); Mean Corpuscular Volume 83.9 fl (82-101); Nucleated Red Blood Cells % 0 %; Platelet Count 162 10^3/cmm (157-399); Red Blood Count 3.16 10^6/uL (3.85-5.65); White Blood Count 5.44 10^3/uL (3.29-11.43)
[2025-06-24 05:13] LABS: Alanine Aminotransferase 32 U/L (0-41); Albumin Level 3.3 g/dL (3.5-5.2); Alkaline Phosphatase 74 U/L (40-130); Anion Gap 15.8 (5-19); Aspartate Amino Transferase 47 U/L (0-40); Blood Urea Nitrogen 11 mg/dL (6-20); Calcium 8.5 mg/dL (8.5-10.5); Carbon Dioxide 21 mmol/L (22-29); Chloride 105 mmol/L (98-107); Creatinine Clr Calc Pharmacy 105.4612; Globulin 3.5 g/dL (1.3-4.6); Glucose 112 mg/dL (65-115); Osmolality Calculated 286 mOsm/kg (285-295); Potassium 3.8 mmol/L (3.5-5.1); Sodium 138 mmol/L (136-145); Total Protein 6.8 g/dL (6.6-8.7)
[2025-06-24 05:14] LABS: Troponin(5th) Baseline 17 ng/L (0-15)
--- NOTE | 2025-06-24 06:35 | PC.NURSE ---
Patient's heart rate dropped into the 40s for several seconds. Patient shortly thereafter informed nurse that as soon as he'd taken his morning meds, he felt short of breath. EKG was promptly obtained-- Dr Lockett was notified of incident, EKG results, and last vitals. No orders given at this time.
[2025-06-24 06:42] LABS: Troponin 5 2HR 15.82 ng/L (0-15); Troponin 5 2HR Delta -1.18 ABS# (0-10)
--- NOTE | 2025-06-24 06:43 | ECG_ITS ---
[employer] Test Date: 2025-06-24 Pat Name: Madi Lowe Department: Room: EDIP Gender: Male Database Tester: : 1965 Requested By: Seth Lockett Order Number: [id number] Marlon MD: Manjit Alexis M.D. Measurements Intervals [place] Rate: 78 P: 31 [place]: 193 QRS: 0 QRSD: 101 T: 60 QT: 399 QTc: 456 Interpretive Statements SINUS RHYTHM INCOMPLETE RIGHT BUNDLE BRANCH BLOCK [90+ ms QRS DURATION, TERMINAL R IN V1/V2, 40+ ms S IN I/aVL/V4/V5/V6] Compared to ECG 06/24/2025 00:54:42 Left ventricular hypertrophy no longer present T-wave abnormality no longer present Electronically Signed On 06-26-2025 21:31:28 CDT by Manjit Alexis M.D. [email or web address] [id number]
--- NOTE | 2025-06-24 06:57 | PC.NURSE ---
THIS NURSE ASSUMED CARE @ [id number].
--- NOTE | 2025-06-24 08:55 | USCV_ITS ---
Madi Lowe Age: 59 Gender: M : 1965 Exam Date: 06/24/2025 15:24 Ordering Phys: Elvin Pizarro MD Technologist: Reyes Arreguin [place]am Location: [facility] [place] Indication: cad BP: 145 / 71 HR: 70 Rhythm: Sinus Technical Quality: Adequate MEASUREMENTS (Male / Female) Normal Values 2D ECHO LV Diastolic Diameter PLAX 5.1 cm 4.2 - 5.9 / 3.9 - 5.3 cm IVS Diastolic Thickness 1.4 cm 0.6 - 1.0 / 0.6 - 0.9 cm IVS Systolic Thickness 1.4 cm LVPW Diastolic Thickness 1.1 cm 0.6 - 1.0 / 0.6 - 0.9 cm LVPW Systolic Thickness 1.8 cm LVOT Diameter 2.1 cm LV Ejection Fraction 2D Teich 70.1 % LV Ejection Fraction MOD 4C 73.5 % LV Ejection Fraction MOD 2C 68.0 % LV Ejection Fraction 2C AL 67.7 % LA Diameter 3.5 cm RA Systolic Volume 4C AL 55.5 ml RA Systolic Volume 4C MOD 54.6 ml LA Sys Volume AL 62.9 cm cubed LA Sys Volume Index AL 27.6 cm cubed/m squared Aorta at Sinotubular Diameter 3.2 cm IVC Diameter 1.9 cm M-MODE LA Ao Ratio MM 1.5 AV Cusp Separation MM 2.5 cm DOPPLER AV Peak Velocity 144.0 cm/s LVOT Peak Velocity 114.0 cm/s AV Area Cont Eq vti 3.0 cm squared AV Area Cont Eq pk 2.8 cm squared MV Peak Velocity 318.3 cm/s MV Area PHT 3.2 cm squared Mitral E to A Ratio 0.8 TR Peak Velocity 323.0 cm/s TR Peak Gradient 41.7 mmHg TR Mean Velocity 237.0 cm/s TR Mean Gradient 27.0 mmHg TR Velocity Time Integral 80.6 cm PV Peak Velocity 118.0 cm/s RV Ejection Time 0.3 s FINDINGS Left Ventricle Normal left ventricular size and systolic function, EF 68%.. Mild left ventricular hypertrophy. No regional wall motion abnormalities. Grade I/IV diastolic dysfunction (abnormal relaxation filling pattern), normal to mildly elevated filling pressures. Right Ventricle Normal right ventricular size and systolic function. Right Atrium Normal right atrial size. Left Atrium Normal left atrial size. IA Septum Normal appearance of the interatrial septum. Mitral Valve Thickened mitral valve. Trace mitral valve regurgitation. Aortic Valve No gross abnormalities noted Tricuspid Valve Trace tricuspid valve regurgitation. Pulmonic Valve Pulmonic valve not well visualized. Pericardium No pericardial effusion. Aorta Normal diameter of the aortic root and ascending thoracic aorta. IVC Normal inferior vena cava. CONCLUSIONS Normal left ventricular size and systolic function, EF 68%.. Mild left ventricular hypertrophy. No regional wall motion abnormalities. Grade I/IV diastolic dysfunction (abnormal relaxation filling pattern), normal to mildly elevated filling pressures. Thickened mitral valve. Trace mitral valve regurgitation. Trace tricuspid valve regurgitation. Estimated pulmonary artery peak systolic pressure 30 mmHg Compared to the study from 01/15/2021, there may not be a significant change. Dr Manjit Alexis MD FACC (Electronically Signed) Final Date: 24 June 2025 18:50 S
[2025-06-24 09:17] LABS: Estmated Average Glucose 140; Hemoglobin A1C 6.5 % (4.0-6.0)
[2025-06-24 09:29] LABS: Thyroid Stimulating Hormone 1.43 uIU/mL (0.27-4.20)
[2025-06-24] MEDS: heparin 5,000 unit/mL INJ 1 mL 5000 UNIT SUBCUT (09:39)
[2025-06-24 10:15] LABS: Iron 33 ug/dL (59-158); Total Iron Binding Capacity 346 mcg/dl; Unsaturated Iron Binding 313 ug/dL (112-347); Vitamin B12 489 pg/mL (232-1245)
[2025-06-24 10:33] LABS: Troponin 5 6HR 13.96 ng/L (0-15); Troponin 5 6HR Delta -3.04 ng/L (0-12)
--- NOTE | 2025-06-24 11:26 | PM.CONSULT ---
Providers/Reason For Consult Consulting Physician/Specialty*: Dr Tim Lutz, interventional cardiology Reason for Consult*: Angina Requesting Physician: Dr. Lockett Attending Physician: Elvin Pizarro MD Primary Care Provider: Walker Sarabia MD History of Present Illness History of Present Illness Madi Lowe is a 59 year old male with past medical history of STEMI in October 2024 with stent to the RCA, staged PCI to the ostial diagonal in December of this year. Additional history includes obesity, hypertension, diabetes, asthma, DAVID on CPAP. He reports he ran out of Plavix a week and a half ago, has been having shortness of breath with exertion for the last month. He had some chest pain yesterday prompting him to present to the emergency room after taking 2 nitroglycerin sublingual. No ischemic EKG changes have been present since admission, chest pain is now resolved. Troponin series: 14?>14?>14. Other than anemia, hemoglobin 8.3 today, no significant laboratory abnormalities. LVEF was 65% by echocardiogram in October, he does not appear volume overloaded currently. Review of Systems Const: Denies: fever(s), chills, change in weight, fatigue or diaphoresis Eyes: Denies: change in vision ENMT: Denies: epistaxis Card: Denies: chest pain, palpitations, irregular heart rhythm, edema, syncope, pre-syncope, dyspnea on exertion, orthopnea or leg pain with exertion Resp: Denies: dyspnea, productive cough or wheezing GI: Denies: nausea, vomiting, hematemesis, hematochezia or melena : Denies: hematuria Musc: Denies: extremity swelling Markus/Lymph: Denies: easy bruising or easy bleeding Medications/Allergies Home Medications ?Medication ?Instructions ?Recorded ?Confirmed ?Last Taken ?Type aspirin 81 mg tablet,delayed 81 mg PO DAILY #90 tabs 11/05/24 06/24/25 06/23/25 Rx release metoprolol tartrate 100 mg tablet 100 mg PO BID 12/21/24 06/24/25 12/24/24 05:00 History nitroglycerin 0.4 mg sublingual 0.4 mg sublingual Q5M PRN chest 01/05/25 06/24/25 Unknown Rx tablet pain #20 tabs clopidogrel 75 mg tablet 75 mg PO DAILY #90 tabs 01/10/25 06/24/25 Unknown Rx amlodipine 2.5 mg tablet See Rx Instructions .Route 06/06/25 06/24/25 Unknown Rx .COMPLEX #90 tabs bupropion HCl 150 mg 24 hr tablet, See Rx Instructions .Route 06/06/25 06/24/25 Unknown Rx extended release .COMPLEX #90 tabs omeprazole magnesium 20 mg 20 mg PO BID 06/24/25 06/24/25 06/23/25 09:00 History tablet,delayed release (Prilosec OTC) Allergies Allergy/AdvReac Type Severity Reaction Status Date / Time No Known Allergies Allergy Verified 01/10/25 13:22 Current Medications Generic Name Dose Route Start Last Admin Trade Name Freq PRN Reason Stop Dose Admin Amlodipine Besylate 5 mg 06/24/25 05:00 06/24/25 05:52 Amlodipine 5 Mg Tablet PO 5 mg DAILY TRE Administration Aspirin 81 mg 06/24/25 05:00 06/24/25 05:52 Aspirin 81 Mg Ec Tablet PO 81 mg DAILY TRE Administration Atorvastatin Calcium 80 mg 06/23/25 23:00 06/23/25 23:21 Atorvastatin 40 Mg Tablet PO 80 mg BEDTIME TRE Administration Bupropion HCl 150 mg 06/24/25 05:00 06/24/25 05:52 Bupropion Xl (24 Hr) 150 Mg Tablet PO 150 mg DAILY TRE Administration Citalopram Hydrobromide 40 mg 06/24/25 05:00 06/24/25 05:52 Citalopram 20 Mg Tablet PO 40 mg DAILY TRE Administration Clopidogrel Bisulfate 75 mg 06/24/25 05:00 06/24/25 05:52 Clopidogrel 75 Mg Tablet PO 75 mg DAILY TRE Administration Heparin Sodium (Porcine) 5,000 unit 06/23/25 21:15 06/24/25 09:39 Heparin 5,000 Unit/Ml Inj 1 Ml SUBCUT 5,000 unit Q12H TRE Administration Insulin Human Lispro 0 unit 06/24/25 08:00 06/24/25 08:09 Insulin Lispro 100 Unit/1 Ml SUBCUT Not Given TIDWM [facility] Protocol Losartan Potassium 100 mg 06/24/25 05:00 06/24/25 05:52 Losartan 50 Mg Tablet PO 100 mg DAILY TRE Administration Metoprolol Tartrate 50 mg 06/24/25 05:00 06/24/25 05:52 Metoprolol Tartrate 50 Mg Tablet PO 50 mg BID TRE Administration Pantoprazole Sodium 40 mg 06/24/25 05:00 06/24/25 05:[address] 40 Mg Tablet PO 40 mg DAILY TRE Administration PFSH Acute PFSH: Medical History Hypertension Chest pain Immunization counseling High risk medication use HTN (hypertension) Major depressive disorder Chronic steroid use Polymyalgia rheumatica Asthma Surgical History Hx of cataract surgery 08/26/23, 09/09/23 - Dr Smith History of umbilical hernia repair (01/26/20) H/O esophagogastroduodenoscopy Status post colonoscopy History of nasal surgery H/O knee surgery H/O hand surgery History of appendectomy Family History Father Lung disease Asthma Denies family history of Diabetes Clotting disorder Dementia Chronic kidney disease (CKD) Social History Smoking and tobacco/nicotine status: never used tobacco/nicotine Alcohol intake: never Substance/Drug Use: never Lives independently: Yes Household members: spouse Marital status: Current occupational status: employed Current occupational exposures/hazards: Yes Do you think of yourself as: Straight/Heterosexual Current gender identity: Male Vitals/I&O/Wt Last Vital Signs Temp 98.7 F 06/23/25 16:08 Pulse 78 06/24/25 08:15 Resp 16 06/24/25 08:15 BP 157/86 06/24/25 08:08 Pulse Ox 95 06/24/25 08:15 O2 Del Method CPAP 06/24/25 08:15 FiO2 21 06/24/25 08:15 06/23/25 06/24/25 06/24/25 22:59 06:59 14:59 Output Total 400 / 400 Balance -400 / -400 Weight last 48 hrs Weight 220 lb Physical Exam Const: COMMON NORMALS: no acute distress and patient oriented x3 GENERAL APPEARANCE: cooperative and comfortable ORIENTATION/CONSCIOUSNESS: Yes awake, Yes oriented to person, Yes oriented to place and Yes oriented to time Chest: COMMONS NORMALS: normal inspection of the chest and normal palpation of entire chest wall CHEST: Yes Symmetrical chest wall rise Resp: COMMON NORMALS: normal respiratory effort, No retractions, No use of accessory muscles and clear to auscultation bilaterally EFFORT & INSPECTION: Yes symmetric chest movement AUSCULTATION: clear to auscultation bilaterally Cardio: COMMON NORMALS: regular rate, regular rhythm, S1 normal heart sound present, S2 normal heart sound present, No gallops present (Cardio), No clicks present (Cardio), No murmurs present (Cardio) and No rub (Cardio) RATE: regular rate RHYTHM: regular rhythm HEART SOUNDS: S1 normal heart sound present and S2 normal heart sound present PERIPHERAL PULSES: radial pulses present Extremity: COMMON NORMALS: no pedal edema Neuro: COMMON NORMALS: patient oriented x3 and moves all extremities SENSORIUM/ORIENTATION: Yes oriented to person, Yes oriented to place and Yes oriented to time Data 06/24/25 04:32 06/24/25 04:32 A&P Assessment and plan 1. Chest pain: 2. Hypertension: 3. CAD (coronary artery disease): 4. Hyperlipidemia LDL goal <70: 5. Diabetes mellitus: Plan: Since he does not have active chest pain, no ischemic EKG changes and no elevation in troponin he does not require coronary angiogram at this time. Will reload with Plavix 600mg now, observe him today, especially with ambulation. If no recurrence of chest pain he may discharge home later today. We have counseled him to make sure he does not run out of his medications, especially Plavix. Echocardiogram has been ordered but not completed. Continue aspirin, Plavix, atorvastatin, losartan, metoprolol tartrate. We will add Imdur 30 mg daily. He did not attend his follow-up with Dr. Lutz in January, he should be rescheduled. PDMP PDMP Reviewed: Not Reviewed Coding Level of Care Code Acute Code for Chg Fwd Diagnoses Chest pain R07.9 Hypertension I10 CAD (coronary artery disease) I25.10 Hyperlipidemia LDL goal <70 E78.5 Diabetes mellitus E11.9
--- NOTE | 2025-06-24 15:35 | PC.NURSE ---
pt ambulated to restroom and back to room. pt denied chest pain, but reported sob while walking. pt O2 94% on room air at this time.
--- NOTE | 2025-06-24 16:13 | PM.DCS ---
Discharge Providers Date of Discharge: June 24, 2025 Consults: Cardiology: Dr. Lutz Primary Care Provider: Walker Sarabia MD Diagnoses at Discharge Discharge Diagnosis 1. Primary hypertension: 2. Coronary artery disease of [place] artery [place] heart with stable angina pectoris: 3. Hyperlipidemia LDL goal <70: 4. Diabetes mellitus: Reason for Visit Reason for Visit: CP SOB Hospital Course Hospital Course Madi Lowe is a 59 year old male with past medical history of STEMI in October 2024 with stent to the RCA, staged PCI to the ostial diagonal in December of this year. Additional history includes obesity, hypertension, diabetes, asthma, DAVID on CPAP. He reports he ran out of Plavix a week and a half ago, has been having shortness of breath with exertion for the last month. He had some chest pain yesterday prompting him to present to the emergency room after taking 2 nitroglycerin sublingual. No ischemic EKG changes have been present since admission, chest pain is now resolved. Troponin series: 14?>14?>14. Other than anemia, hemoglobin 8.3 today, no significant laboratory abnormalities. LVEF was 65% by echocardiogram in October, he does not appear volume overloaded currently. Patient was observed overnight. He was started back on Plavix after initial loading. He did not have any further chest pain both at rest and on exertion. Echocardiogram was done though results are awaited. He has been discharged in stable condition on Plavix 75 mg daily, Imdur 30 mg daily after cardiology clearance with advised to follow-up with cardiology team in 1 month. Meds to bed have been requested. Physical Exam Narrative: General: Alert and oriented, lying comfortably without any distress HEENT: Normocephalic, atraumatic, grossly unremarkable exam Cardio: normal rate rhythm, normal S1-S2 without any murmurs, rubs, or gallops and JVD normal Respiratory: normal vascular breathing on auscultation without any wheezes, stridor, rhonchi GI: Abdomen soft, nontender, nondistended, normoactive bowel sounds present all 4 quadrants, Neuro: intact cranial nerves motor and sensory and cerebellar/coordination function without any focal neurological deficit Behavior: Appropriate and cooperative Extremities: Adequate palpable pulses, mild trace edema Skin: grossly unremarkable exam Discharge Data Studies Completed and Pending Completed Studies During Hospitalization Category Date Time Status XR chest 1V portable [id number] Stat Exams 06/23/25 16:16 Completed Pending at discharge Category Date Time Status Complete Blood Count w/Auto AM LABS Lab 06/25/25 04:00 Ordered Comprehensive Metabolic Panel AM LABS Lab 06/25/25 04:00 Ordered Folate Level AM LABS Lab 06/25/25 04:00 Ordered Lipid Profile w/VLDL Routine Lab 06/25/25 04:00 Ordered MAG [Magnesium] AM LABS Lab 06/25/25 04:00 Ordered MAG [Magnesium] AM LABS Lab 06/26/25 04:00 Ordered MAG [Magnesium] AM LABS Lab 06/27/25 04:00 Ordered CV. echo complete* [id number] Routine Ultrasound 06/24/25 08:55 Taken Radiology Impressions Chest X-Ray 06/23/25 16:16 IMPRESSION: No acute findings. Laboratory Results WBC 5.44 10^3/uL (3.29-11.43) 06/24/25 04:32 RBC 3.16 10^6/uL (3.85-5.65) L 06/24/25 04:32 Hgb 8.30 g/dL (11.27-16.99) L 06/24/25 04:32 Hct 26.5 % (37-53) L 06/24/25 04:32 MCV 83.9 fl (82-101) 06/24/25 04:32 MCH 26.3 pg (27-33) L 06/24/25 04:32 MCHC 31.3 g/dL (30-55) 06/24/25 04:32 RDW 18.7 % (12.1-15.1) H 06/24/25 04:32 Plt Count 162 10^3/cmm (157-399) 06/24/25 04:32 MPV 9.8 fL (7.4-10.4) 06/24/25 04:32 Neut % (Auto) 66.6 % 06/24/25 04:32 Lymph % (Auto) 19.3 % 06/24/25 04:32 Gilliam % (Auto) 10.3 % 06/24/25 04:32 Eos % (Auto) 2.9 % 06/24/25 04:32 Baso % (Auto) 0.7 % 06/24/25 04:32 Neut # (Auto) 3.62 10^3/uL (1.8-7.7) 06/24/25 04:32 Lymph # (Auto) 1.1 10^3/uL (0.8-4.8) 06/24/25 04:32 Gilliam # (Auto) 0.6 10^3/uL (0.2-0.9) 06/24/25 04:32 Eos # (Auto) 0.2 10^3/uL (0.0-0.8) 06/24/25 04:32 Baso # (Auto) 0.0 10^3/uL (0.0-0.1) 06/24/25 04:32 Nucleated RBC % (auto) 0 % 06/24/25 04:32 Nucleated RBCs # 0.0 /100WBC 06/24/25 04:32 Sodium 138 mmol/L (136-145) 06/24/25 04:32 Potassium 3.8 mmol/L (3.5-5.1) 06/24/25 04:32 Chloride 105 mmol/L (98-107) 06/24/25 04:32 Carbon Dioxide 21 mmol/L (22-29) L 06/24/25 04:32 Anion Gap 15.8 (5-19) 06/24/25 04:32 BUN 11 mg/dL (6-20) 06/24/25 04:32 Creatinine 0.9 mg/dL (0.7-1.2) 06/24/25 04:32 GFR Calculation 87.0 mL/min (90-130) L 06/24/25 04:32 Glucose 112 mg/dL (65-115) 06/24/25 04:32 POC Glucose 138 mg/dL (70-110) H 06/24/25 11:30 Estimat Average Glucose 140 06/24/25 04:32 Hemoglobin A1c 6.5 % (4.0-6.0) H 06/24/25 04:32 Calculated Osmolality 286 mOsm/kg (285-295) 06/24/25 04:32 Calcium 8.5 mg/dL (8.5-10.5) 06/24/25 04:32 Iron 33 ug/dL (59-158) L 06/24/25 06:02 TIBC 346 mcg/dl 06/24/25 06:02 % Saturation 9.5 % (20-50) L 06/24/25 06:02 Unsat Iron Binding 313 ug/dL (112-347) 06/24/25 06:02 Total Bilirubin 0.6 mg/dL (0.15-1.2) 06/24/25 04:32 AST 47 U/L (0-40) H 06/24/25 04:32 ALT 32 U/L (0-41) 06/24/25 04:32 Alkaline Phosphatase 74 U/L (40-130) 06/24/25 04:32 Troponin T Baseline 17 ng/L (0-15) H 06/24/25 04:32 Troponin T 120 Minute 15.82 ng/L (0-15) H 06/24/25 06:02 Delta Troponin T -1.18 ABS# (0-10) L 06/24/25 06:02 Troponin T Hi Sens 6Hr 13.96 ng/L (0-15) 06/24/25 10:02 Troponin T Hi Sens 6Hr Delta -3.04 ng/L (0-12) L 06/24/25 10:02 NT-Pro-B Natriuret Pep 288 pg/mL (0-125) H 06/23/25 16:26 Total Protein 6.8 g/dL (6.6-8.7) 06/24/25 04:32 Albumin 3.3 g/dL (3.5-5.2) L 06/24/25 04:32 Globulin 3.5 g/dL (1.3-4.6) 06/24/25 04:32 Vitamin B12 489 pg/mL (232-1245) 06/24/25 06:02 TSH 1.43 uIU/mL (0.27-4.20) 06/24/25 06:02 Vitals Last Vital Signs Temp 98.7 F 06/23/25 16:08 Pulse 69 06/24/25 16:00 Resp 16 06/24/25 16:00 BP 154/88 06/24/25 16:00 Pulse Ox 97 06/24/25 16:00 O2 Del Method Room Air 06/24/25 16:00 FiO2 21 06/24/25 08:15 Discharge Plan Discharge Patient Disposition: Placed in Observation Clinical Impression: Unstable angina, Chest pain, CAD (coronary artery disease) Discharge Attestations Time Spent in Discharge Care*: greater than 30 min Specific Discharge Activities: educating patient, educating and/or supporting family/caregiver, discussing with pcp/other providers, discussing with test case developer/social workers/dc planners, documenting/other paperwork and evaluating patient/reviewing data Status at Discharge: Cognitive status at discharge: cognitively intact, Behavioral status at discharge: cooperative, Functional status at discharge: independent ambulation, Overall status at discharge: patient is back to baseline Quality Metrics Clinical Quality Measures [ No reported AMI, CVA or VTE this stay] Coding Level of Care Code 53820 Total time (in minutes) for Discharge: 65 Diagnoses Chest pain R07.9 Primary hypertension I10 Hypertension type: primary hypertension Coronary artery disease of [place] artery of [place] heart with stable angina pectoris I25.118 Coronary Disease-Associated Artery/Lesion type: [place] artery [place] vs. transplanted heart: [place] heart Associated angina: with stable angina Hyperlipidemia LDL goal <70 E78.5 Diabetes mellitus E11.9
--- NOTE | 2025-06-24 16:36 | DCPLANNER ---
messaged heart care for heart care f/u
--- OUTSIDE RECORDS SUMMARY | 2025-06-25 09:15 | XMS_ITS | Clinical Summary ---
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 Gender Identity Not on file Sexual Orientation [...] (#1) 2025 Medical Devices Explanted Type Area Passenger Service Manager Device Identifier Shelf Expiration Date Model / Serial / Lot Plate-H Ext 1.5mm Right 246.482 - [id number] Implanted:Qty: 1 on 05/05/2014 Explanted:Qty: 1 on 09/29/2014 by Walker Rollins MD Plate Right: Finger [employer]ES [employer]ATEC 246.482 / / Description:load#[id number] Screw St 1.5x10mm 200.810 - [id number] Implanted:Qty: 1 on 05/05/2014 Explanted:Qty: 2 on 09/29/2014 by Walker Rollins MD Screw Right: Finger [employer]ATEC 200.810 / / Description:load#[id number] Screw St 1.5x7mm 200.807 - [id number] Implanted:Qty: 3 on 05/05/2014 Explanted:Qty: 2 on 09/29/2014 by Walker Rollins MD Screw Right: Finger [employer]ATEC 200.807 / / Description:load #[id number] Screw St 1.5x8mm 200.808 - [id number] Implanted:Qty: 2 on 05/05/2014 Explanted:Qty: 2 on 09/29/2014 by Walker Rollins MD Screw Right: Finger [employer]AT[employer] 200.808 / / Description:load#[id number]-- 05/[address] 1.5x9mm 200.809 - [id number] Implanted:Qty: 2 on 05/05/2014 Explanted:Qty: 2 on 09/29/2014 by Walker Rollins MD Screw Right: Finger [employer]ATEC 200.809 / / Description:load#[id number] Care Teams Salad Counter Attendant Relationship Specialty Start Date End Date Rubina Dhillon MD [address] [phone] PCP - General Family Practice 07/09/13
--- OUTSIDE RECORDS SUMMARY | 2025-06-25 09:15 | XMS_ITS | Patient Health Record ---
Author Organization [facility] Address [address] [place] [address] Care Team Providers Care Deck Builder Name Role Phone Walker Sarabia MD Primary Care Provider Nick Marino Unavailable [phone] Allergies Allergen (clinical drug ingredient) Drug/Non Drug [...] W/U Status Risk Notes Problem Unstable angina (1395876) Unstable angina (I20.0) Active confirmed Problem Coronary artery aneurysm (14917283) Coronary artery aneurysm (I25.41) Active confirmed Problem Dilatation of aorta (36529333) Aortic ectasia, unspecified site (I77.819) Active confirmed Problem Acute severe exacerbation of severe persistent asthma (270785818) Severe persistent asthma with (acute) exacerbation (J45.51) Active confirmed Problem Shortness of breath (013900476) Shortness of breath (R06.02) Active confirmed Problem Localized edema (1034846) Localized edema (R60.0) Active confirmed Problem Long-term current use of inhaled steroid (573933882) 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 (Z79.51) Active confirmed Problem Essential hypertension (85872279) Essential hypertension (I10) Active confirmed Problem Severe persistent allergic asthma (88016034052819755) Severe persistent allergic asthma (J45.50) Active confirmed Problem Thoracic aortic aneurysm without rupture (20941584) Thoracic aortic aneurysm without rupture (I71.2) Active confirmed Problem Bradycardia (73973753) Bradycardia (R00.1) Active confirmed Problem Obstructive sleep apnea syndrome (36086350) DAVID (obstructive sleep apnea) (G47.33) Active confirmed Problem Periodic limb movement disorder (810610449) Periodic limb movement (G47.61) Active confirmed Problem Hyperlipidaemia (05450316) Hyperlipemia (E78.5) Active confirmed Problem Obesity (403284973) Obesity (E66.9) Active conf irmed Problem Fatigue (30912934) Fatigue (R53.83) Active conf irmed Problem Exacerbation of asthma (584480857) Asthma exacerbation (J45.901) Active confirmed Problem Hypertension (43886403) Hypertension (I10) Active confirmed Problem Chest pain (40995983) Chest pain (R07.9) Active confirmed Problem Gastroesophageal reflux disease (232806189) GERD (gastroesophageal reflux disease) (K21.9) Active confirmed Problem Plain X-ray of chest abnormal (finding) (3216440162) Abnormal chest x-ray (R93.89) Active confirmed Problem Angina (347184783) Atheroscleros is of coronary artery with angina pectoris, unspecified vessel or lesion type, unspecified whether [place] or transplanted heart (I25.119) Active confirmed Plan Of Treatment Pending Test Test Name Order Date zzzCT Cardiac Calcium Scoring Only-[id number] 05/01/2022 Medical (General) History Medical History History ICD Code Hypertension arthritis Hx covid 03/2021 pneumonia Anxiety Sleep apnea Surgical History Surgery Date(Month/Year) nose reconstruction appendectomy right knee scope x 5 left knee scope Hospitalization History Reason Date(Month/Year) [facility] /Pneumonia see above
--- OUTSIDE RECORDS SUMMARY | 2025-06-25 09:15 | XMS_ITS | Encounter Summary ---
Author Organization [facility] Address [address] [place] [address] Care Team Providers Care Radiophone Operator Name Role Phone Rubina Dhillon MD Primary Care Provider [phone] Encounter Details Date Type Department Care Team (Late st Contact Info) Description 10/23/[address] 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 No acute cardiopulmonary disease. dmh/cjf Uploaded from [employer] [id number] Narrative 10/24/2015 12:02 PM LETTERSET PRESS SET UP OPERATOR Exam: XR CHEST PA AND LATERAL Date/Time [...] No acute cardiopulmonary disease. dmh/cjf Uploaded from [employer] [id number] Finn Arreguin DO DIAGNOSTIC IMAGING ORDERABLES F inal Result documented in this encounter Visit Diagnoses Diagnosis Acute bronchitis- Primary Acute bronchitis documented in this encounter Care Teams Radiophone Operator Relationship Specialty Start Date End Date Rubina Dhillon MD [address] [phone] PCP - General Family Practice 07/09/13 documented as of this encounter
--- OUTSIDE RECORDS SUMMARY | 2025-06-25 09:15 | XMS_ITS | Encounter Summary ---
Author Organization [facility] Address [address] [place] [address] Care Team Providers Care Fountain Manager Name Role Phone Rubina Dhillon MD Primary Care Provider [phone] Encounter Details Date Type Department Care Team (Late st Contact Info) Description 10/23/[address] 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 Gender Identity Not on file Sexual Orientation [...] CBC WITH DIFFERENTIAL Routine 10/23/2015 8:23 PM ICE GRINDER Illness BASIC METABOLIC PANEL Routine 10/23/2015 8:23 PM ICE GRINDER Illness documented in this encounter Results * CBC WITH DIFFERENTIAL (10/23/2015 8:23 PM ICE GRINDER) WBC 4.2 4.2 - 9.1 K/uL 10/23/2015 10:37 PM ICE GRINDER [facility] RBC 4.93 4.63 - 6.08 M/uL 10/23/2015 10:37 PM ICE GRINDER [facility] HEMOGLOBIN 15.1 13.7 - 17.5 g/dL 10/23/2015 10:37 PM ICE GRINDER [facility] [place] HEMATOCRIT 45.4 40.1 - 51.0 % 10/23/2015 10:37 PM ICE GRINDER [facility] MCV 92.1 79.0 - 92.2 fL 10/23/2015 10:37 PM ICE GRINDER [facility] [place] MCH 30.6 25.7 - 32.2 pg 10/23/2015 10:37 PM ICE GRINDER [facility] MCHC 33.3 32.3 - 36.5 g/dL 10/23/2015 10:37 PM ICE GRINDER [facility] RDW 14.2 11.0 - 14.5 % 10/23/2015 10:37 PM ICE GRINDER [facility] RDW-STDEV 46.4 36.9 - 56.9 fL 10/23/2015 10:37 PM ICE GRINDER [facility] PLATELETS 258 130 - 400 K/uL 10/23/2015 10:37 PM ICE GRINDER [facility] MPV 10.2 10.0 - 14.8 fL 10/23/2015 10:37 PM ICE GRINDER [facility] NEUTROPHILS 51 34 - 68 % 10/23/2015 10:37 PM ICE GRINDER [facility] [place] [place] LYMPHOCYTES 30 22 - 53 % 10/23/2015 10:37 PM ICE GRINDER [facility] MONOCYTES 12 5 - 12 % 10/23/2015 10:37 PM ICE GRINDER [facility] EOSINOPHILS 7 1 - 7 % 10/23/2015 10:37 PM ICE GRINDER [facility] BASOPHILS 1 0 - 1 % 10/23/2015 10:37 PM ICE GRINDER [facility] NEUTROPHIL ABSOLUTE 2.14 1.78 - 5.38 K/uL 10/23/2015 10:37 PM ICE GRINDER [facility] [place] LYMPHOCYTE ABSOLUTE 1.26 1.20 - 3.40 K/uL 10/23/2015 10:37 PM ICE GRINDER [facility] MONOCYTE ABSOLUTE 0.48 0.30 - 0.82 K/uL 10/23/2015 10:37 PM [facility] EOSINOPHIL ABSOLUTE 0.28 0.04 - 0.54 K/uL 10/23/2015 10:37 PM [facility] BASOPHILS ABSOLUTE 0.02 0.01 - 0.08 K/uL 10/23/2015 10:37 PM [facility] IMMATURE GRANULOCYTES 0 % 10/23/2015 10:37 PM [facility] IMMATURE GRANULOCYTES ABSOLUTE 0.00 K/uL 10/23/2015 10:37 PM [facility] Blood Collection / Unknown 10/23/2015 8:23 PM ICE GRINDER 10/23/2015 8:23 PM ICE GRINDER us Finn Arreguin DO HEMATOLOGY ORDERABLES Final Res ult [facility] CLIA # [id number] [address] [place] [phone] * (ABNORMAL) BASIC METABOLIC PANEL (10/23/2015 8:23 PM ICE GRINDER) SODIUM 139 136 - 145 mmol/L 10/23/2015 10:54 PM [facility] POTASSIUM 4.5 3.5 - 5.1 mmol/L 10/23/2015 10:54 PM [facility] CHLORIDE 100 98 - 107 mmol/L 10/23/2015 10:54 PM [facility] CO2 25 22 - 29 mmol/L 10/23/2015 10:54 PM [facility] CALCIUM 9.6 8.6 - 10.0 mg/dL 10/23/2015 10:54 PM [facility] BUN 13 6 - 20 mg/dL 10/23/2015 10:54 PM [facility] CREATININE 1.51(H) 0.67 - 1.17 mg/dL 10/23/2015 10:54 PM [facility] GLUCOSE 115(H) 74 - 106 mg/dL 10/23/2015 10:54 PM [facility] [employer] [facility] GFR 50(L) >=60 mL/min/1.7 3 sq meter 10/23/2015 10:54 PM ICE GRINDER [employer] [facility]AT[facility] [employer] [facility] Comment: eGFR has not been validated for [...] mL/min/1.7 3 sq meter 10/23/2015 10:54 PM ICE GRINDER [employer] [facility] [employer] ANION GAP 14 12 - 20 mmol/L 10/23/2015 10:54 PM ICE GRINDER [employer] Blood Collection / Unknown 10/23/2015 8:23 PM ICE GRINDER 10/23/2015 8:23 PM ICE GRINDER us Finn Arreguin DO CHEMISTRY ORDERABLES Final Resu lt [facility] CLIA # [id number] [address] [place] [phone] documented in this encounter Visit Diagnoses Diagnosis Illness Other unknown and unspecified cause of morbidity or mortality documented in this encounter Care Teams Fountain Manager Relationship Specialty Start Date End Date Rubina Dhillon MD [address] [phone] PCP - General Family Practice 07/09/13 documented as of this encounter
--- OUTSIDE RECORDS SUMMARY | 2025-06-25 09:15 | XMS_ITS | Encounter Summary ---
Author Organization [facility] Address [address] [place] [address] Care Team Providers Care Financial Service Professional Name Role Phone Rubina Dhillon MD Primary Care Provider [phone]- [phone] Encounter Details Date Type Department Care Team (Late st Contact Info) Description 06/15/2014 Ancillary Orders [facility] Orth[facility] - Orthopedic [facility] [address] [place] [address] Walker Rollins MD [address] [facility] [address] [place] [address] Finger pain, right (Primary Dx) Social History Tobacco Use Types Packs/Day Years Used Date Smoking Tobacco: Never Smokeless Tobacco: Never Alcohol Use Standard Drinks/Week Comments No 0 (1 standard drink = 0.6 oz pure alcohol) last time I drank was in February Sex and Gender Information Value Date Recorded Sex Assigned at Not on file Legal Sex Male 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
--- OUTSIDE RECORDS SUMMARY | 2025-06-25 09:15 | XMS_ITS | Clinical Summary ---
Author Organization [facility] Address [address] 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 Gender Identity Not on file Sexual Orientation [...] 35.9 C (96.6 F) 09/29/2014 10:00 AM BIOFUELS TECHNOLOGY MANAGER Respiratory Rate 16 09/29/2014 9:45 AM BIOFUELS TECHNOLOGY MANAGER Oxygen Saturation 95% 09/29/2014 10:00 AM BIOFUELS TECHNOLOGY MANAGER Inhaled Oxygen Concentration - - Weight 90.7 [...] (#1) 2025 Medical Devices Explanted Type Area Brain Surgeon Device Identifier Shelf Expiration Date Model / Serial / Lot Plate-H Ext 1.5mm Right 246.482 - [id number] Implanted:Qty: 1 on 05/05/2014 at [facility] Explanted:Qty: 1 on 09/29/2014 by Walker Rollins MD at [facility] Plate Right: Finger [employer]AT[employer] 246.482 / / Description:load#[id number] Screw St 1.5x7mm 200.807 - [id number] Implanted:Qty: 3 on 05/05/2014 at [facility] Explanted:Qty: 2 on 09/29/2014 by Walker Rollins MD at [facility] Screw Right: Finger [employer] 200.807 / / Description:load #[id number] Screw St 1.5x8mm 200.808 - [id number] Implanted:Qty: 2 on 05/05/2014 at [facility] Explanted:Qty: 2 on 09/29/2014 by Walker Rollins MD at [facility] Screw Right: Finger [employer] 200.808 / / Description:load#[id number]-- 05/[address] 1.5x9mm 200.809 - [id number] Implanted:Qty: 2 on 05/05/2014 at [facility] Explanted:Qty: 2 on 09/29/2014 by Walker Rollins MD at [facility] Screw Right: Finger [employer] 200.809 / / Description:load#[id number] Screw St 1.5x10mm 200.810 - [id number] Implanted:Qty: 1 on 05/05/2014 at [facility] Explanted:Qty: 2 on 09/29/2014 by Walker Rollins MD at [facility] Screw Right: Finger [employer] 200.810 / / Description:load#[id number] Insurance [employer] Advance Directives For more information, please contact: [phone] * Full Code (Latest Code Status on [...] 11:26 AM 06/29/2013 8:10 AM Care Teams Retirement Administrator Relationship Specialty Start Date End Date Rubina Dhillon MD [address] [facility] [address] [place] [phone] PCP - General Family Practice 07/09/13
== END 2025-06-24 15:28 | disposition home or self-care (01) ==
LOC: ER 18:47 → ER IP 22:06 → CSU 06-24 16:28
PROVIDERS: Admitting Provider Student in an Organized Health Care Education/Training Program; Emergency Provider Emergency Medicine; PCP Family Medicine; Visit Provider Student in an Organized Health Care Education/Training Program
DX: I25.118 Atherosclerotic heart disease of native coronary artery with other forms of angina pectoris (principal); I10 Essential (primary) hypertension; E78.5 Hyperlipidemia, unspecified; E11.9 Type 2 diabetes mellitus without complications; Z95.5 Presence of coronary angioplasty implant and graft; E66.9 Obesity, unspecified; Z68.32 Body mass index [BMI] 32.0-32.9, adult; J45.909 Unspecified asthma, uncomplicated; G47.33 Obstructive sleep apnea (adult) (pediatric); Z99.89 Dependence on other enabling machines and devices; I25.2 Old myocardial infarction; Z79.82 Long term (current) use of aspirin; K21.9 Gastro-esophageal reflux disease without esophagitis; Z79.4 Long term (current) use of insulin; F32.9 Major depressive disorder, single episode, unspecified; I45.19 Other right bundle-branch block
CPT/HCPCS: 36415; 36416; 71045; 80053; 82607; 82962; 83036; 83540; 83550; 83880; 84443; 84484; 85025; 93005; 93306; 94660; 96372; 99285; G0378; J1644; J9999

== ENCOUNTER → 2025-07-26 10:26 | Outpatient (BNVA) | payer OTHER, SELFPAY | PROVIDERS: PCP Family Medicine; Visit Provider Family Medicine | DX: D64.9 Anemia, unspecified (principal); R35.0 Frequency of micturition; Z51.81 Encounter for therapeutic drug level monitoring | CPT/HCPCS: 80053; 81003; 83550; 83615; 84153; 85025 ==

== ENCOUNTER → 2025-07-28 10:31 | Outpatient (BNVA) | payer OTHER, SELFPAY | PROVIDERS: PCP Family Medicine; Visit Provider Family Medicine | DX: D64.9 Anemia, unspecified (principal) | CPT/HCPCS: 82274 ==

== ENCOUNTER 2025-08-05 14:59 | Emergency (ER) | payer OTHER, SELFPAY ==
[2025-08-05 15:04] VITALS: BP 164/84; PULSE 70; RESP 18; TEMP 36.6; O2SAT 98; BMI 33.2
--- NOTE | 2025-08-05 16:06 | ECG_ITS ---
[employer] Test Date: 2025-08-05 Pat Name: Madi Lowe Department: Room: Gender: Male Business Control Manager: : 1965 Requested By: Horace Phillip Order Number: [id number] Mason MD: Isak Boyce M.D. Measurements Intervals [place] Rate: 63 P: -5 AK: 200 QRS: -2 QRSD: 98 T: 58 QT: 430 QTc: 441 Interpretive Statements SINUS RHYTHM POSSIBLE RIGHT VENTRICULAR CONDUCTION DELAY [RSR (QR) IN V1/V2] Compared to ECG 06/24/2025 06:18:05 Incomplete right bundle-branch block no longer present Electronically Signed On 08-05-2025 19:42:05 DIVERSIONAL THERAPIST'S ASSISTANT by Isak Boyce M.D. [email or web address]
[2025-08-05 16:07] VITALS: BP 172/98; PULSE 63; RESP 16; O2SAT 98
--- NOTE | 2025-08-05 16:10 | XRR_ITS ---
PROCEDURE INFORMATION: Exam: XR Chest Exam date and time: 08/05/2025 4:12 PM Age: 59 years old Clinical indication: Shortness of breath; Additional info: SOB, HTN TECHNIQUE: Imaging protocol: Radiologic exam of the chest. Views: 1 view. COMPARISON: CR XR chest 1V portable [id number] 06/23/2025 4:47 PM FINDINGS: Lungs: Pulmonary vascularity is within normal limits.. No consolidation. Pleural spaces: Unremarkable. No pleural effusion. No pneumothorax. Heart/Mediastinum: Unchanged cardiomegaly. Bones/joints: No acute abnormality. XR/XR chest 1V portable [id number] IMPRESSION: No acute findings. Unchanged exam.
--- NOTE | 2025-08-05 16:16 | ED_ITS ---
Documented by User: [email or web address] Mayer 08/05/25 17:41 HPI - General Adult 2 General: Chief complaint: General Medical Stated complaint: High Bp Dizzy lightheaded Time Seen by Provider: 08/05/25 15:59 Source: patient Mode of arrival: ambulatory Limitations: no limitations History of Present Illness: Patient is a 59-year-old male with past medical history of hypertension and coronary artery disease presents to the emergency department complaining of hypertension for the past 2 days. He tells me normally his blood pressure runs in the 160s systolic, he has been noting it has been running higher at home and this has concerned him due to his cardiac history. He does not reporting chest pain, states he has felt somewhat short of breath but that this is chronic. 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 Reviewing med list, appears that he takes losartan 50 mg once daily, and metoprolol 100 mg twice daily for his blood pressure. He also is on a statin and Plavix. He has still been making urine, does report a mild headache at this time. Blood pressure at this time is 172/98, overall he is appearing stable and again is denying any chest pain. He has no other complaints at this time. MD complaint: htn Onset (ago): day(s) Associated symptoms: Reports dyspnea; Deny chest pain, headache(s), nausea, rash, palpitations or vomiting Related Data Home Medications ?Medication ?Instructions ?Recorded ?Confirmed omeprazole magnesium 20 mg 20 mg PO BID 06/24/2506/24 tablet,delayed release (Prilosec OTC) Previous Rx's ?Medication ?Instructions ?Recorded aspirin 81 mg tablet,delayed 81 mg PO DAILY #90 tabs 0 11/05/24 release metformin 500 mg tablet 500 mg PO BIDWMEAL #60 tabs 06/24/25 amoxicillin 875 mg-potassium 1 tab PO BID #14 tabs 01/14 clavulanate 125 mg tablet atorvastatin 80 mg tablet (Lipitor) 80 mg PO DAILY #90 tabs 07/26/25 bupropion HCl 150 mg 24 hr tablet, See Rx Instructions .Route 07/26/25 extended release .COMPLEX #90 tabs clopidogrel 75 mg tablet 75 mg PO DAILY #90 tabs 01/14 isosorbide mononitrate 30 mg 30 mg PO DAILY #90 tabs 1 09/25/24 tablet,extended release 24 hr losartan 50 mg tablet 50 mg PO DAILY #90 tabs 01/14 metoprolol tartrate 100 mg tablet 100 mg PO BID #180 t abs 07/26/25 nitroglycerin 0.4 mg sublingual 0.4 mg sublingual Q5M PRN chest 07/26/25 tablet pain #30 tabs Allergies Allergy/AdvReac Type Severity Reaction Status Date / Time No Known Allergies Allergy Verified 01/10/25 13:22 Review of Systems 2 General: Reports: 10 or more systems reviewed and unremarkable except in HPI and below Const: Denies: fever(s), chills or fatigue Eyes: Denies: change in vision ENMT: Denies: throat pain, ear or mastoid pain or nasal discharge Card: Reports: other (reports htn); Denies: chest pain, palpitations, swelling of feet/ankles or lightheadedness Resp: Reports: dyspnea; Denies: productive cough or wheezing GI: Denies: abdominal pain, nausea, vomiting, diarrhea or constipation : Denies: flank pain, difficulty urinating, dysuria or urinary frequency Musc: Denies: neck pain, back pain or joint pain Skin/Breast: Denies: rash Neuro: Denies: headache(s), numbness in extremities or weakness in extremities PFSH ED 2 PFSH: Medical History Hypertension Chest pain Immunization counseling High risk medication use HTN (hypertension) Major depressive disorder Chronic steroid use Polymyalgia rheumatica Asthma Surgical History Hx of cataract surgery 08/26/23, 09/09/23 - Dr Smith History of umbilical hernia repair (01/26/20) H/O esophagogastroduodenoscopy Status post colonoscopy History of nasal surgery H/O knee surgery H/O hand surgery History of appendectomy Family History Father Lung disease Asthma Denies family history of Diabetes Clotting disorder Dementia Chronic kidney disease (CKD) Social History Smoking and tobacco/nicotine status: never used tobacco/nicotine Alcohol intake: never Substance/Drug Use: never Lives independently: Yes Household members: spouse Marital status: Current occupational status: employed Current occupational exposures/hazards: Yes Do you think of yourself as: Straight/Heterosexual Current gender identity: Male Physical Exam 2 Const: COMMON NORMALS: no acute distress, patient oriented x3 and no limitations GENERAL APPEARANCE: cooperative, comfortable and well developed ORIENTATION/CONSCIOUSNESS: Yes awake, Yes oriented to person, Yes oriented to place and Yes oriented to time HENMT: COMMON NORMALS: normocephalic, atraumatic and hearing grossly normal bilaterally HEAD & SCALP: normocephalic and atraumatic Eye: COMMON NORMALS: Equal, round and reactive pupils present, EOMs intact bilaterally and conjunctivae normal CONJUNCTIVA: Yes conjunctivae normal P UPIL: Yes Equal, round and reactive pupils present Neck/C-Spine: COMMON NORMALS: full ROM, supple and no JVD Resp: COMMON NORMALS: normal respiratory effort, No retractions, No use of accessory muscles and clear to auscultation bilaterally AUSCULTATION: clear to auscultation bilaterally Cardio: COMMON NORMALS: no JVD, regular rate, regular rhythm, No clicks present (Cardio), No murmurs present (Cardio) and No rub (Cardio) RATE: r egular rate RHYTHM: regular rhythm GI: COMMON NORMALS: Normal to inspection, nondistended, normoactive bowel sounds present, Soft to palpation and non-tender AUSCULTATION: Yes normoactive bowel sounds PALPATION: Yes Soft to palpation RECTAL EXAM: Yes deferred Extremity: COMMON NORMALS: normal to inspection, full ROM and capillary refill normal Neuro: COMMON NORMALS: patient oriented x3, moves all extremities, no focal motor deficits and no sensory deficits noted SENSORIUM/ORIENTATION: Yes oriented to person, Yes oriented to place and Yes oriented to time Skin: COMMON NORMALS: no rashes or lesions noted GENERAL SKIN EXAM: no rashes or lesions noted Course 2 Vital Signs: Vital signs: Vital Signs Temperature 97.8 F 08/05/25 15:04 Pulse Rate 61 08/05/25 17:46 Respiratory Rate 18 08/05/25 17:46 Blood Pressure 159/92 08/05/25 17:46 Pulse Oximetry 97 08/05/25 17:46 Oxygen Delivery Me thod Room Air 08/05/25 16:07 [facility] - General Adult Medical Decision Making Patient presented with concerns of his blood pressure, which has been increasing over the past month or so. Asymptomatic aside from some chronic shortness of breath, no chest pain. Blood pressure here 164/84 with initial examination. EKG obtained showing normal sinus rhythm with no rhythm changes. CBC and CMP unremarkable, he has no evidence of kidney disease by lab work. He did note to me that his blood pressure has been running this way for some time, so his blood pressure 160 systolic is not entirely different from his baseline, reviewing his med list appears he is on metoprolol and losartan. With there being no evidence of ACS or other acute abnormality, this is likely related to his primary hypertension and we will have him increase losartan to 100 mg daily and follow- up with primary care and cardiology. No further workup necessary in the ED at this time. He is informed to return if he starts to have any chest pain, worsening of shortness of breath, or any other signs of endorgan damage. Lab Data 08/05/25 16:30 08/05/25 16:30 Radiology Impressions Chest X-Ray 08/05/25 16:10 IMPRESSION: No acute findings. Unchanged exam. Laboratory Results WBC 5.25 10^3/uL (3.29-11.43) 08/05/25 16:30 RBC 3.42 10^6/uL (3.85-5.65) L 08/05/25 16:30 Hgb 8.40 g/dL (11.27-16.99) L 08/05/25 16:30 Hct 27.5 % (37-53) L 08/05/25 16:30 MCV 80.4 fl (82-101) L 08/05/25 16:30 MCH 24.6 pg (27-33) L 08/05/25 16:30 MCHC 30.5 g/dL (30-55) 08/05/25 16:30 RDW 19.3 % (12.1-15.1) H 08/05/25 16:30 Plt Count 178 10^3/cmm (157-399) 08/05/25 16:30 MPV 10.0 fL (7.4-10.4) 08/05/25 16:30 Neut % (Auto) 61.7 % 08/05/25 16:30 Lymph % (Auto) 19.4 % 08/05/25 16:30 [place] % (Auto) 15.0 % 08/05/25 16:30 Eos % (Auto) 2.9 % 08/05/25 16:30 Baso % (Auto) 0.8 % 08/05/25 16:30 Neut # (Auto) 3.24 10^3/uL (1.8-7.7) 08/05/25 16:30 Lymph # (Auto) 1.0 10^3/uL (0.8-4.8) 08/05/25 16:30 [place] # (Auto) 0.8 10^3/uL (0.2-0.9) 08/05/25 16:30 Eos # (Auto) 0.2 10^3/uL (0.0-0.8) 08/05/25 16:30 Baso # (Auto) 0.0 10^3/uL (0.0-0.1) 08/05/25 16:30 Nucleated RBC % (auto) 0 % 08/05/25 16:30 Nucleated RBCs # 0.0 /100WBC 08/05/25 16:30 Sodium 136 mmol/L (136-145) 08/05/25 16:30 Potassium 3.9 mmol/L (3.5-5.1) 08/05/25 16:30 Chloride 103 mmol/L (98-107) 08/05/25 16:30 Carbon Dioxide 21 mmol/L (22-29) L 08/05/25 16:30 Anion Gap 15.9 (5-19) 08/05/25 16:30 BUN 15 mg/dL (6-20) 08/05/25 16:30 Creatinine 1.1 mg/dL (0.7-1.2) 08/05/25 16:30 GFR Calculation 69.0 mL/min (90-130) L 08/05/25 16:30 Glucose 106 mg/dL (65-115) 08/05/25 16:30 Calculated Osmolality 283 mOsm/kg (285-295) L 08/05/25 16:30 Calcium 9.1 mg/dL (8.5-10.5) 08/05/25 16:30 Total Bilirubin 0.7 mg/dL (0.15-1.2) 08/05/25 16:30 AST 58 U/L (0-40) H 08/05/25 16:30 ALT 30 U/L (0-41) 08/05/25 16:30 Alkaline Phosphatase 102 U/L (40-130) 08/05/25 16:30 Total Protein 7.6 g/dL (6.6-8.7) 08/05/25 16:30 Albumin 3.6 g/dL (3.5-5.2) 08/05/25 16:30 Globulin 4.0 g/dL (1.3-4.6) 08/05/25 16:30 All radiology interpretation(s) finalized by discharge Discharge Plan Discharge Patient Disposition: Home Clinical Impression: Uncontrolled hypertension Condition: Stable Prescriptions: No Action amoxicillin-pot clavulanate 875-125 mg tablet 1 tab PO BID Qty: 14 0RF metoprolol tartrate 100 mg tablet 100 mg PO BID Qty: 180 3RF Rx Instructions: TAKE 1 TABLET BY MOUTH TWICE A DAY FOR HIGH BLOOD PRESSURE bupropion HCl 150 mg tablet extended release 24 hr See Rx Instructions .ROUTE .COMPLEX Qty: 90 2RF Dose Instruction: TAKE 1 TABLET BY MOUTH EVERY DAY IN THE MORNING Rx Instructions: TAKE 1 TABLET BY MOUTH EVERY DAY IN THE MORNING clopidogrel 75 mg tablet 75 mg PO DAILY Qty: 90 4RF isosorbide mononitrate 30 mg tablet extended release 24 hr 30 mg PO DAILY Qty: 90 3RF losartan 50 mg tablet 50 mg PO DAILY Qty: 90 3RF atorvastatin [Lipitor] 80 mg tablet 80 mg PO DAILY Qty: 90 3RF nitroglycerin 0.4 mg tablet, sublingual 0.4 mg sublingual Q5M PRN (Reason: chest pain) Qty: 30 2RF Rx Instructions: do not exceed 3 doses per episode aspirin 81 mg Tablet,Delayed Release (Dr/Ec) 81 mg PO DAILY Qty: 90 0RF omeprazole magnesium [Prilosec OTC] 20 mg Tablet,Delayed Release (Dr/Ec) 20 mg PO BID metformin 500 mg tablet 500 mg PO BIDWMEAL Qty: 60 0RF Discharge Orders: Discharge ED (Routine); Ordered 08/05/25 Ordered By: Nirav Esteban Referrals: Walker Sarabia MD [Primary Care Provider, Family Practice] Patient Instructions: Patient Portal & Hannah Instructions Activity Restrictions/Additional Instructions: Hypertension Discharge Instructions Diagnosis: High blood pressure (hypertension) Medications: - Losartan: Your dose has been increased to 100 mg once daily. Take this medication at the same time each day. If you miss a dose, take it as soon as you remember, but do not double up on doses. - Metoprolol: Continue taking as prescribed. Blood Pressure Monitoring: - Check your blood pressure at home using an upper arm automated cuff, preferably twice daily (morning and evening), at least 3 days per week. Record your readings and bring them to your next appointment. - If your blood pressure is consistently above your target or you experience symptoms such as dizziness, lightheadedness, or weakness, contact your healthcare provider. Follow-Up: - Primary Care Provider: Schedule a follow-up visit within 2-4 weeks for medication reconciliation and to check your blood pressure, kidney function, and potassium levels. - Cardiology: Keep your scheduled appointment for further evaluation and management. When to Seek Medical Attention: - If you experience chest pain, shortness of breath, severe headache, vision changes, swelling, or signs of an allergic reaction (such as rash or difficulty breathing), seek medical care immediately. Lifestyle Recommendations: - Maintain a healthy weight, follow a heart-healthy diet (such as DASH), reduce salt intake, increase physical activity as tolerated, limit alcohol, and avoid tobacco. - Take all medications as prescribed and do not stop them without consulting your provider. Lab Monitoring: - Blood tests to check kidney function and potassium will be needed within 2-4 weeks after increasing your losartan dose, and then as recommended by your provider. Additional Instructions: - Bring your blood pressure log to all appointments. - Inform your provider of any new symptoms or medication side effects. - If you have vomiting, diarrhea, or cannot keep fluids down, contact your provider before taking your blood pressure medications, as dose adjustments may be needed. Next Steps: - Continue home blood pressure monitoring. - Attend all scheduled follow-up appointments. - Adhere to medication and lifestyle recommendations to help control your blood pressure and reduce your risk of complications. Print Language: Turkmen Coding Level of Care Code ED [employer] for [employer] Documented by User: Horace Hudson, 08/06/25 14:35 HPI - General Adult 2 General: Chief complaint: General Medical Stated complaint: High Bp Dizzy lightheaded Time Seen by Provider: 08/05/25 15:59 Related Data Home Medications ?Medication ?Instructions ?Recorded ?Confirmed omeprazole magnesium 20 mg 20 mg PO BID 06/24/2506/24 tablet,delayed release (Prilosec OTC) Previous Rx's ?Medication ?Instructions ?Recorded aspirin 81 mg tablet,delayed 81 mg PO DAILY #90 tabs 0 11/05/24 release metformin 500 mg tablet 500 mg PO BIDWMEAL #60 tabs 06/24/25 amoxicillin 875 mg-potassium 1 tab PO BID #14 tabs 01/14 clavulanate 125 mg tablet atorvastatin 80 mg tablet (Lipitor) 80 mg PO DAILY #90 tabs 07/26/25 bupropion HCl 150 mg 24 hr tablet, See Rx Instructions .Route 07/26/25 extended release .COMPLEX #90 tabs clopidogrel 75 mg tablet 75 mg PO DAILY #90 tabs 01/14 isosorbide mononitrate 30 mg 30 mg PO DAILY #90 tabs 1 09/25/24 tablet,extended release 24 hr losartan 50 mg tablet 50 mg PO DAILY #90 tabs 01/14 metoprolol tartrate 100 mg tablet 100 mg PO BID #180 t abs 07/26/25 nitroglycerin 0.4 mg sublingual 0.4 mg sublingual Q5M PRN chest 07/26/25 tablet pain #30 tabs Allergies Allergy/AdvReac Type Severity Reaction Status Date / Time No Known Allergies Allergy Verified 01/10/25 13:22 PFSH ED 2 PFSH: Medical History Hypertension Chest pain Immunization counseling High risk medication use HTN (hypertension) Major depressive disorder Chronic steroid use Polymyalgia rheumatica Asthma Surgical History Hx of cataract surgery 08/26/23, 09/09/23 - Dr Smith History of umbilical hernia repair (01/26/20) H/O esophagogastroduodenoscopy Status post colonoscopy History of nasal surgery H/O knee surgery H/O hand surgery History of appendectomy Family History Father Lung disease Asthma Denies family history of Diabetes Clotting disorder Dementia Chronic kidney disease (CKD) Social History Smoking and tobacco/nicotine status: never used tobacco/nicotine Alcohol intake: never Substance/Drug Use: never Lives independently: Yes Household members: spouse Marital status: Current occupational status: employed Current occupational exposures/hazards: Yes Do you think of yourself as: Straight/Heterosexual Current gender identity: Male Course 2 Vital Signs: Vital signs: Vital Signs Temperature 97.8 F 08/05/25 15:04 Pulse Rate 61 08/05/25 17:46 Respiratory Rate 18 08/05/25 17:46 Blood Pressure 159/92 08/05/25 17:46 Pulse Oximetry 97 08/05/25 17:46 Oxygen Delivery Me thod Room Air 08/05/25 16:07 MDM - General Adult Medical Decision Making Patient presented with concerns of his blood pressure, which has been increasing over the past month or so. Asymptomatic aside from some chronic shortness of breath, no chest pain. Blood pressure here 164/84 with initial examination. EKG obtained showing normal sinus rhythm with no rhythm changes. CBC and CMP unremarkable, he has no evidence of kidney disease by lab work. He did note to me that his blood pressure has been running this way for some time, so his blood pressure 160 systolic is not entirely different from his baseline, reviewing his med list appears he is on metoprolol and losartan. With there being no evidence of ACS or other acute abnormality, this is likely related to his primary hypertension and we will have him increase losartan to 100 mg daily and follow- up with primary care and cardiology. No further workup necessary in the ED at this time. He is informed to return if he starts to have any chest pain, worsening of shortness of breath, or any other signs of endorgan damage. Chart reviewed Lab Data 08/05/25 16:30 08/05/25 16:30 Radiology Impressions Chest X-Ray 08/05/25 16:10 IMPRESSION: No acute findings. Unchanged exam. Laboratory Results WBC 5.25 10^3/uL (3.29-11.43) 08/05/25 16: RBC 3.42 10^6/uL (3.85-5.65) L 08/05/25 16:30 Hgb 8.40 g/dL (11.27-16.99) L 08/05/25 16:30 Hct 27.5 % (37-53) L 08/05/25 16:30 MCV 80.4 fl (82-101) L 08/05/25 16: MCH 24.6 pg (27-33) L 08/05/25 16: MCHC 30.5 g/dL (30-55) 08/05/25 16: RDW 19.3 % (12.1-15.1) H 08/05/25 16: Plt Count 178 10^3/cmm (157-399) 08/05/25 16: MPV 10.0 fL (7.4-10.4) 08/05/25 16:30 Neut % (Auto) 61.7 % 08/05/25 16:30 Lymph % (Auto) 19.4 % 08/05/25 16:30 [place] % (Auto) 15.0 % 08/05/25 16:30 Eos % (Auto) 2.9 % 08/05/25 16: Baso % (Auto) 0.8 % 08/05/25 16: Neut # (Auto) 3.24 10^3/uL (1.8-7.7) 08/05/25 16:30 Lymph # (Auto) 1.0 10^3/uL (0.8-4.8) 08/05/25 16:30 [place] # (Auto) 0.8 10^3/uL (0.2-0.9) 08/05/25 16:30 Eos # (Auto) 0.2 10^3/uL (0.0-0.8) 08/05/25 16:30 Baso # (Auto) 0.0 10^3/uL (0.0-0.1) 08/05/25 16: Nucleated RBC % (auto) 0 % 08/05/25 16: Nucleated RBCs # 0.0 /100WBC 08/05/25 16: Sodium 136 mmol/L (136-145) 08/05/25 16:30 Potassium 3.9 mmol/L (3.5-5.1) 08/05/25 16:30 Chloride 103 mmol/L (98-107) 08/05/25 16:30 Carbon Dioxide 21 mmol/L (22-29) L 08/05/25 16:30 Anion Gap 15.9 (5-19) 08/05/25 16:30 BUN 15 mg/dL (6-20) 08/05/25 16:30 Creatinine 1.1 mg/dL (0.7-1.2) 08/05/25 16:30 GFR Calculation 69.0 mL/min (90-130) L 08/05/25 16:30 Glucose 106 mg/dL (65-115) 08/05/25 16:30 Calculated Osmolality 283 mOsm/kg (285-295) L 08/05/25 16:30 Calcium 9.1 mg/dL (8.5-10.5) 08/05/25 16:30 Total Bilirubin 0.7 mg/dL (0.15-1.2) 08/05/25 16:30 AST 58 U/L (0-40) H 08/05/25 16:30 ALT 30 U/L (0-41) 08/05/25 16:30 Alkaline Phosphatase 102 U/L (40-130) 08/05/25 16:30 Total Protein 7.6 g/dL (6.6-8.7) 08/05/25 16:30 Albumin 3.6 g/dL (3.5-5.2) 08/05/25 16:30 Globulin 4.0 g/dL (1.3-4.6) 08/05/25 16:30 Discharge Plan Discharge Patient Disposition: Home Clinical Impression: Uncontrolled hypertension Condition: Stable Prescriptions: No Action amoxicillin-pot clavulanate 875-125 mg tablet 1 tab PO BID Qty: 14 0RF metoprolol tartrate 100 mg tablet 100 mg PO BID Qty: 180 3RF Rx Instructions: TAKE 1 TABLET BY MOUTH TWICE A DAY FOR HIGH BLOOD PRESSURE bupropion HCl 150 mg tablet extended release 24 hr See Rx Instructions .ROUTE .COMPLEX Qty: 90 2RF Dose Instruction: TAKE 1 TABLET BY MOUTH EVERY DAY IN THE MORNING Rx Instructions: TAKE 1 TABLET BY MOUTH EVERY DAY IN THE MORNING clopidogrel 75 mg tablet 75 mg PO DAILY Qty: 90 4RF isosorbide mononitrate 30 mg tablet extended release 24 hr 30 mg PO DAILY Qty: 90 3RF losartan 50 mg tablet 50 mg PO DAILY Qty: 90 3RF atorvastatin [Lipitor] 80 mg tablet 80 mg PO DAILY Qty: 90 3RF nitroglycerin 0.4 mg tablet, sublingual 0.4 mg sublingual Q5M PRN (Reason: chest pain) Qty: 30 2RF Rx Instructions: do not exceed 3 doses per episode aspirin 81 mg Tablet,Delayed Release (Dr/Ec) 81 mg PO DAILY Qty: 90 0RF omeprazole magnesium [Prilosec OTC] 20 mg Tablet,Delayed Release (Dr/Ec) 20 mg PO BID metformin 500 mg tablet 500 mg PO BIDWMEAL Qty: 60 0RF Discharge Orders: Discharge ED (Routine); Ordered 08/05/25 Ordered By: Nirav Esteban Referrals: Walker Sarabia MD [Primary Care Provider, Family Practice] Patient Instructions: Patient Portal & Hannah Instructions Activity Restrictions/Additional Instructions: Hypertension Discharge Instructions Diagnosis: High blood pressure (hypertension) Medications: - Losartan: Your dose has been increased to 100 mg once daily. Take this medication at the same time each day. If you miss a dose, take it as soon as you remember, but do not double up on doses. - Metoprolol: Continue taking as prescribed. Blood Pressure Monitoring: - Check your blood pressure at home using an upper arm automated cuff, preferably twice daily (morning and evening), at least 3 days per week. Record your readings and bring them to your next appointment. - If your blood pressure is consistently above your target or you experience symptoms such as dizziness, lightheadedness, or weakness, contact your healthcare provider. Follow-Up: - Primary Care Provider: Schedule a follow-up visit within 2-4 weeks for medication reconciliation and to check your blood pressure, kidney function, and potassium levels. - Cardiology: Keep your scheduled appointment for further evaluation and management. When to Seek Medical Attention: - If you experience chest pain, shortness of breath, severe headache, vision changes, swelling, or signs of an allergic reaction (such as rash or difficulty breathing), seek medical care immediately. Lifestyle Recommendations: - Maintain a healthy weight, follow a heart-healthy diet (such as DASH), reduce salt intake, increase physical activity as tolerated, limit alcohol, and avoid tobacco. - Take all medications as prescribed and do not stop them without consulting your provider. Lab Monitoring: - Blood tests to check kidney function and potassium will be needed within 2-4 weeks after increasing your losartan dose, and then as recommended by your provider. Additional Instructions: - Bring your blood pressure log to all appointments. - Inform your provider of any new symptoms or medication side effects. - If you have vomiting, diarrhea, or cannot keep fluids down, contact your provider before taking your blood pressure medications, as dose adjustments may be needed. Next Steps: - Continue home blood pressure monitoring. - Attend all scheduled follow-up appointments. - Adhere to medication and lifestyle recommendations to help control your blood pressure and reduce your risk of complications. Print Language: Turkmen Coding Level of Care Code ED [employer] for [employer]
[2025-08-05 16:50] LABS: Hematocrit 27.5 % (37-53); Hemoglobin 8.40 g/dL (11.27-16.99); Mean Corpuscular HGB Conc 30.5 g/dL (30-55); Mean Corpuscular Hemoglobin 24.6 pg (27-33); Mean Corpuscular Volume 80.4 fl (82-101); Nucleated Red Blood Cells % 0 %; Platelet Count 178 10^3/cmm (157-399); Red Blood Count 3.42 10^6/uL (3.85-5.65); White Blood Count 5.25 10^3/uL (3.29-11.43)
--- OUTSIDE RECORDS SUMMARY | 2025-08-05 16:54 | XMS_ITS | Clinical Summary ---
Author Organization [facility] [place] Address [address] 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 Gender Identity Not on file Sexual [...] 35.9 C (96.6 F) 09/29/2014 10:00 AM CRIMINALIST TECHNICIAN Respiratory Rate 16 09/29/2014 9:45 AM CRIMINALIST TECHNICIAN Oxygen Saturation 95% 09/29/2014 10:00 AM CRIMINALIST TECHNICIAN Inhaled Oxygen Concentration - - Weight 90.7 [...] (#1) 2025 Medical Devices Explanted Type Area Fleet Maintenance Manager Device Identifier Shelf Expiration Date Model / Serial / Lot Plate-H Ext 1.5mm Right 246.482 - [id number] Implanted:Qty: 1 on 05/05/2014 at [facility] Explanted:Qty: 1 on 09/29/2014 by Walker Rollins MD at [facility] Plate Right: Finger SYNTHES STRATEC 246.482 / / Description:load#[id number] Screw St 1.5x7mm 200.807 - [id number] Implanted:Qty: 3 on 05/05/2014 at [facility] Explanted:Qty: 2 on 09/29/2014 by Walker Rollins MD at [facility] Screw Right: Finger [employer]ATEC 200.807 / / Description:load #[id number] Screw St 1.5x8mm 200.808 - [id number] Implanted:Qty: 2 on 05/05/2014 at [facility] Explanted:Qty: 2 on 09/29/2014 by Walker Rollins MD at [facility] Screw Right: Finger [employer]ATEC 200.808 / / Description:load#[id number]-- 05/[address] 1.5x9mm 200.809 - [id number] Implanted:Qty: 2 on 05/05/2014 at [facility] Explanted:Qty: 2 on 09/29/2014 by Walker Rollins MD at [facility] Screw Right: Finger [employer]ATEC 200.809 / / Description:load#[id number] Screw St 1.5x10mm 200.810 - [id number] Implanted:Qty: 1 on 05/05/2014 at [facility] Explanted:Qty: 2 on 09/29/2014 by Walker Rollins MD at [facility] Screw Right: Finger [employer]ATEC 200.810 / / Description:load#[id number] Insurance [employer] Advance Directives For more information, please contact: [phone] * Full Code (Latest Code Status on [...] 11:26 AM 06/29/2013 8:10 AM Care Teams Textiles Sales Representative Relationship Specialty Start Date End Date Rubina Dhillon MD [address] [facility] [address] [place] [phone] PCP - General Family Practice 07/09/13
--- OUTSIDE RECORDS SUMMARY | 2025-08-05 16:54 | XMS_ITS | Clinical Summary ---
Author Organization [facility] Address [address] [place] [address] Dr. 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 Gender Identity Not on file Sexual Orientation [...] (#1) 2025 Medical Devices Explanted Type Area Telecommunicator Supervisor Device Identifier Shelf Expiration Date Model / Serial / Lot Plate-H Ext 1.5mm Right 246.482 - [id number] Implanted:Qty: 1 on 05/05/2014 Explanted:Qty: 1 on 09/29/2014 by Walker Rollins MD Plate Right: Finger [employer]ATEC 246.482 / / Description:load#[id number] Screw St 1.5x10mm 200.810 - [id number] Implanted:Qty: 1 on 05/05/2014 Explanted:Qty: 2 on 09/29/2014 by Walker Rollins MD Screw Right: Finger [employer]ATEC 200.810 / / Description:load#[id number] Screw St 1.5x7mm 200.807 - [id number] Implanted:Qty: 3 on 05/05/2014 Explanted:Qty: 2 on 09/29/2014 by Walker Rollins MD Screw Right: Finger [employer]ATEC 200.807 / / Description:load #[id number] Screw St 1.5x8mm 200.808 - [id number] Implanted:Qty: 2 on 05/05/2014 Explanted:Qty: 2 on 09/29/2014 by Walker Rollins MD Screw Right: Finger [employer]ATEC 200.808 / / Description:load#[id number]-- 05/[address] 1.5x9mm 200.809 - [id number] Implanted:Qty: 2 on 05/05/2014 Explanted:Qty: 2 on 09/29/2014 by Walker Rollins MD Screw Right: Finger [employer]ATEC 200.809 / / Description:load#[id number] Care Teams Volunteer Recruitment Coordinator Relationship Specialty Start Date End Date Rubina Dhillon MD [address] [phone] PCP - General Family Practice 07/09/13
--- OUTSIDE RECORDS SUMMARY | 2025-08-05 16:55 | XMS_ITS | Encounter Summary ---
Author Organization [facility] Address [address] [place] [address] Care Team Providers Care School Based Therapist Name Role Phone Rubina Dhillon MD Primary Care Provider Encounter Details Date Type Department Care Team (Late st Contact Info) Description 06/15/2014 Ancillary Orders [facility] Orthopedics - Orthopedic [facility] [address] [place] [address] Walker Rollins MD [address] [facility] [address] [place] [address] Finger pain, right (Primary Dx) Social History Tobacco Use Types Packs/Day Years Used Date Smoking Tobacco: Never Smokeless Tobacco: Never Alcohol Use Standard Drinks/Week Comments No 0 (1 standard drink = 0.6 oz pure alcohol) last time I drank was in February Sex and Gender Information Value Date Recorded Sex Assigned at Not on file Legal 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
--- OUTSIDE RECORDS SUMMARY | 2025-08-05 16:55 | XMS_ITS | Encounter Summary ---
Author Organization [facility] Address [address] [place] [address] Care Team Providers Care Search Engine Optimizer Name Role Phone Rubina Dhillon MD Primary Care Provider [phone]- [phone] Encounter Details Date Type Department Care Team (Late st Contact Info) Description 10/23/2015 Lab Requisition [facility] [place] [address] [place] [phone] Finn Arreguin, DO NO ADDRESS ON FILE Illness Social History Tobacco Use Types Packs/Day Years Used Date Smoking Tobacco: Never Smokeless Tobacco: Never Alcohol Use Standard Drinks/Week Comments No 0 (1 standard drink = 0.6 oz pure alcohol) last time I drank was in February Sex and Gender Information Value Date Recorded Sex Assigned at Not on file Legal Sex Male 7:10 AM POWER SYSTEM ENGINEER Gender Identity Not on file Sexual Orientation [...] CBC WITH DIFFERENTIAL Routine 10/23/2015 8:23 PM POWER SYSTEM ENGINEER Illness BASIC METABOLIC PANEL Routine 10/23/2015 8:23 PM POWER SYSTEM ENGINEER Illness documented in this encounter Results * CBC WITH DIFFERENTIAL (10/23/2015 8:23 PM POWER SYSTEM ENGINEER) WBC 4.2 4.2 - 9.1 K/uL 10/23/2015 10:37 PM POWER SYSTEM ENGINEER [facility] RBC 4.93 4.63 - 6.08 M/uL 10/23/2015 10:37 PM POWER SYSTEM ENGINEER [facility] HEMOGLOBIN 15.1 13.7 - 17.5 g/dL 10/23/2015 10:37 PM POWER SYSTEM ENGINEER [facility] [place] HEMATOCRIT 45.4 40.1 - 51.0 % 10/23/2015 10:37 PM POWER SYSTEM ENGINEER [facility] MCV 92.1 79.0 - 92.2 fL 10/23/2015 10:37 PM POWER SYSTEM ENGINEER [facility] [place] [place] MCH 30.6 25.7 - 32.2 pg 10/23/2015 10:37 PM POWER SYSTEM ENGINEER [facility] MCHC 33.3 32.3 - 36.5 g/dL 10/23/2015 10:37 PM POWER SYSTEM ENGINEER [facility] RDW 14.2 11.0 - 14.5 % 10/23/2015 10:37 PM POWER SYSTEM ENGINEER [facility] RDW-STDEV 46.4 36.9 - 56.9 fL 10/23/2015 10:37 PM POWER SYSTEM ENGINEER [facility] PLATELETS 258 130 - 400 K/uL 10/23/2015 10:37 PM POWER SYSTEM ENGINEER [facility] MPV 10.2 10.0 - 14.8 fL 10/23/2015 10:37 PM POWER SYSTEM ENGINEER [facility] NEUTROPHILS 51 34 - 68 % 10/23/2015 10:37 PM POWER SYSTEM ENGINEER [facility] [place] LYMPHOCYTES 30 22 - 53 % 10/23/2015 10:37 PM POWER SYSTEM ENGINEER [facility] MONOCYTES 12 5 - 12 % 10/23/2015 10:37 PM POWER SYSTEM ENGINEER [facility] EOSINOPHILS 7 1 - 7 % 10/23/2015 10:37 PM POWER SYSTEM ENGINEER [facility] BASOPHILS 1 0 - 1 % 10/23/2015 10:37 PM POWER SYSTEM ENGINEER [facility] NEUTROPHIL ABSOLUTE 2.14 1.78 - 5.38 K/uL 10/23/2015 10:37 PM POWER SYSTEM ENGINEER [facility] [place] LYMPHOCYTE ABSOLUTE 1.26 1.20 - 3.40 K/uL 10/23/2015 10:37 PM POWER SYSTEM ENGINEER [facility] MONOCYTE ABSOLUTE 0.48 0.30 - 0.82 K/uL 10/23/2015 10:37 PM [facility] EOSINOPHIL ABSOLUTE 0.28 0.04 - 0.54 K/uL 10/23/2015 10:37 PM [facility] BASOPHILS ABSOLUTE 0.02 0.01 - 0.08 K/uL 10/23/2015 10:37 PM [facility] IMMATURE GRANULOCYTES 0 % 10/23/2015 10:37 PM [facility] IMMATURE GRANULOCYTES ABSOLUTE 0.00 K/uL 10/23/2015 10:37 PM [facility] Blood Collection / Unknown 10/23/2015 8:23 PM POWER SYSTEM ENGINEER 10/23/2015 8:23 PM POWER SYSTEM ENGINEER us Finn Arreguin DO HEMATOLOGY ORDERABLES Final Res ult [facility] CLIA # [id number] [address] [place] [address] * (ABNORMAL) BASIC METABOLIC PANEL (10/23/2015 8:23 PM POWER SYSTEM ENGINEER) SODIUM 139 136 - 145 mmol/L 10/23/2015 10:54 PM [facility] POTASSIUM 4.5 3.5 - 5.1 mmol/L 10/23/2015 10:54 PM [facility] CHLORIDE 100 98 - 107 mmol/L 10/23/2015 10:54 PM [facility] CO2 25 22 - 29 mmol/L 10/23/2015 10:54 PM [facility] CALCIUM 9.6 8.6 - 10.0 mg/dL 10/23/2015 10:54 PM [facility] BUN 13 6 - 20 mg/dL 10/23/2015 10:54 PM [facility] CREATININE 1.51(H) 0.67 - 1.17 mg/dL 10/23/2015 10:54 PM [facility] GLUCOSE 115(H) 74 - 106 mg/dL 10/23/2015 10:54 PM [facility] [employer] [facility] GFR 50(L) >=60 mL/min/1.7 3 sq meter 10/23/2015 10:54 PM POWER SYSTEM ENGINEER [facility] Comment: eGFR has not been validated for [...] mL/min/1.7 3 sq meter 10/23/2015 10:54 PM POWER SYSTEM ENGINEER [facility] ANION GAP 14 12 - 20 mmol/L 10/23/2015 10:54 PM POWER SYSTEM ENGINEER [facility] Blood Collection / Unknown 10/23/2015 8:23 PM POWER SYSTEM ENGINEER 10/23/2015 8:23 PM POWER SYSTEM ENGINEER us Finn Arreguin DO CHEMISTRY ORDERABLES Final Resu lt [facility] CLIA # [id number] [address] [place] [address] documented in this encounter Visit Diagnoses Diagnosis Illness Other unknown and unspecified cause of morbidity or mortality documented in this encounter Care Teams Search Engine Optimizer Relationship Specialty Start Date End Date Rubina Dhillon MD [address] [phone] PCP - General Family Practice 07/09/13 documented as of this encounter
--- OUTSIDE RECORDS SUMMARY | 2025-08-05 16:55 | XMS_ITS | Encounter Summary ---
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 No acute cardiopulmonary disease. dmh/cjf Uploaded from [employer] [id number] Narrative 10/24/2015 12:02 PM CATHODIC PROTECTION TECHNICIAN Exam: XR CHEST PA AND LATERAL [...] No acute cardiopulmonary disease. dmh/cjf Uploaded from [employer] [id number] Finn Arreguin DO DIAGNOSTIC IMAGING ORDERABLES F inal Result documented in this encounter Visit Diagnoses Diagnosis Acute bronchitis- Primary Acute bronchitis documented in this encounter Care Teams Field Representative/Health Education Relationship Specialty Start Date End Date Rubina Dhillon MD [address] [phone] PCP - General Family Practice 07/09/13 documented as of this encounter
[2025-08-05 17:00] VITALS: BP 164/100; PULSE 65; RESP 16; O2SAT 98
[2025-08-05 17:09] LABS: Alanine Aminotransferase 30 U/L (0-41); Albumin Level 3.6 g/dL (3.5-5.2); Alkaline Phosphatase 102 U/L (40-130); Anion Gap 15.9 (5-19); Aspartate Amino Transferase 58 U/L (0-40); Blood Urea Nitrogen 15 mg/dL (6-20); Calcium 9.1 mg/dL (8.5-10.5); Carbon Dioxide 21 mmol/L (22-29); Chloride 103 mmol/L (98-107); Globulin 4.0 g/dL (1.3-4.6); Glucose 106 mg/dL (65-115); Osmolality Calculated 283 mOsm/kg (285-295); Potassium 3.9 mmol/L (3.5-5.1); Sodium 136 mmol/L (136-145); Total Protein 7.6 g/dL (6.6-8.7)
[2025-08-05 17:19] VITALS: BP 164/100
[2025-08-05 17:46] VITALS: BP 159/92; PULSE 61; RESP 18; O2SAT 97
== END 2025-08-05 17:45 | disposition home or self-care (01) ==
PROVIDERS: Family Medicine; Emergency Provider Physician Assistant; PCP Family Medicine
DX: I10 Essential (primary) hypertension (principal); Z79.02 Long term (current) use of antithrombotics/antiplatelets; Z79.82 Long term (current) use of aspirin; Z79.84 Long term (current) use of oral hypoglycemic drugs
CPT/HCPCS: 36415; 71045; 80053; 85025; 93005; 99285; J9999

== ENCOUNTER 2025-08-09 23:07 | Inpatient (IN) | payer OTHER, SELFPAY ==
[2025-08-09 23:15] VITALS: BP 115/64; PULSE 80; RESP 16; TEMP 36.8; O2SAT 96; BMI 32.9
[2025-08-09 23:51] LABS: Hematocrit 25.3 % (37-53); Hemoglobin 7.60 g/dL (11.27-16.99); Mean Corpuscular HGB Conc 30.0 g/dL (30-55); Mean Corpuscular Hemoglobin 24.5 pg (27-33); Mean Corpuscular Volume 81.6 fl (82-101); Nucleated Red Blood Cells % 0 %; Platelet Count 241 10^3/cmm (157-399); Red Blood Count 3.10 10^6/uL (3.85-5.65); White Blood Count 8.31 10^3/uL (3.29-11.43)
[2025-08-10] VITALS (27 sets, daily range): BP systolic 117–167; BP diastolic 58–94; PULSE 67–88; RESP 16–20; TEMP 36.3–36.9; O2SAT 95–100; BMI 31.7
[2025-08-10 00:03] LABS: INR 1.18 (0.8-1.2); Prothrombin Time 15.80 SECONDS (12.1-14.9)
[2025-08-10 00:04] LABS: Partial Thromboplastin Time 30.9 SECONDS (23.9-36.7)
[2025-08-10 00:07] LABS: Alanine Aminotransferase 31 U/L (0-41); Albumin Level 3.3 g/dL (3.5-5.2); Alkaline Phosphatase 73 U/L (40-130); Anion Gap 16.1 (5-19); Aspartate Amino Transferase 64 U/L (0-40); Blood Urea Nitrogen 26 mg/dL (6-20); Calcium 8.8 mg/dL (8.5-10.5); Carbon Dioxide 21 mmol/L (22-29); Chloride 100 mmol/L (98-107); Globulin 3.9 g/dL (1.3-4.6); Glucose 134 mg/dL (65-115); Lipase 51 U/L (13-60); Osmolality Calculated 283 mOsm/kg (285-295); Potassium 4.1 mmol/L (3.5-5.1); Sodium 133 mmol/L (136-145); Total Protein 7.2 g/dL (6.6-8.7)
--- NOTE | 2025-08-10 00:08 | CTR_ITS ---
PROCEDURE INFORMATION: Exam: CTA Abdomen and Pelvis With Contrast Exam date and time: 08/10/2025 12:52 AM Age: 59 years old Clinical indication: Abdominal pain; Generalized; Additional info: Prev esophageal ulcer, 2x large episodes of hematemesis TECHNIQUE: Imaging protocol: Computed tomographic angiography of the abdomen and pelvis with contrast. Exam focused on the arteries. 3D rendering (Not supervised by radiologist): MIP and/or 3D reconstructed images were created by the technologist. Radiation optimization: All CT scans at this facility use at least one of these dose optimization techniques: automated exposure control; mA and/or kV adjustment per patient size (includes targeted exams where dose is matched to clinical indication); or iterative reconstruction. Contrast material: OMNI 350; Contrast volume: 100 ml; Contrast route: INTRAVENOUS (IV); COMPARISON: CT abdomen pelvis w con* [id number] 02/09/2023 4:13 PM RADIATION DOSE METRICS: Total DLP (mGy-cm): 936.05 FINDINGS: Heart: Cardiomegaly. Coronary arteries: Coronary artery atherosclerotic calcifications. Esophagus: Distal esophageal wall thickening may reflect esophagitis, consider correlation with endoscopy to evaluate for possible mass. Diaphragm: Small to moderate hiatal hernia. Aorta: No aortic aneurysm. No aortic dissection. Celiac and mesenteric arteries: No occlusion or significant stenosis. Renal arteries: No occlusion or significant stenosis. Right iliac arteries: No occlusion or significant stenosis. Left iliac arteries: Left proximal common iliac artery atherosclerotic calcification with 50-60% luminal narrowing. Liver: Hepatomegaly. Gallbladder and biliary ducts: Gallbladder wall thickening with mild surrounding edema, consider correlation with ultrasound to assess for possible cholecystitis. Pancreas: Unremarkable. No mass. No ductal dilation. Spleen: Spleen enlarged at 16 cm. Adrenal glands: Unremarkable. No mass. Kidneys and ureters: Left kidney cysts, negative for follow-up advised. Stomach and bowel: Proximal sigmoid colon demonstrates wall thickening with surrounding edema in an area of multiple diverticuli suggestive of a diverticulitis, please correlate clinically. Appendix: No evidence of appendicitis. Intraperitoneal space: Unremarkable. No free air. No significant fluid collection. Lymph nodes: Unremarkable. No enlarged lymph nodes. Urinary bladder: Unremarkable. No mass. Reproductive: Unremarkable as visualized. Bones/joints: No acute fracture. Soft tissues: Moderate umbilical hernia containing somewhat edematous omentum, please correlate for reduction. CT/CT angio abdomen pelvis [id number] IMPRESSION: 1. Distal esophageal wall thickening may reflect esophagitis, consider correlation with endoscopy to evaluate for possible mass. 2. Proximal sigmoid colon demonstrates wall thickening with surrounding edema in an area of multiple diverticuli suggestive of a diverticulitis, please correlate clinically. 3. Spleen enlarged at 16 cm. 4. Left kidney cysts, negative for follow-up advised. 5. Gallbladder wall thickening with mild surrounding edema, consider correlation with ultrasound to assess for possible cholecystitis. 6. Hepatomegaly. 7. Moderate umbilical hernia containing somewhat edematous omentum, please correlate for reduction. 8. Cardiomegaly. 9. Coronary artery atherosclerotic calcifications. 10. Small to moderate hiatal hernia. 11. Left proximal common iliac artery atherosclerotic calcification with 50-60% luminal narrowing.
[2025-08-10] MEDS: pantoprazole 40 mg SDV IVP ×3 (00:31→15:10)
[2025-08-10] MEDS: ondansetron 2 mg/ML SDV 2 mL 4 MG IVP (00:32)
[2025-08-10 01:04] LABS: Troponin(5th) Baseline 10 ng/L (0-15)
[2025-08-10 01:12] LABS: Troponin 5 2HR 10.20 ng/L (0-15); Troponin 5 2HR Delta 0.20 ABS# (0-10)
[2025-08-10 01:13] LABS: Lactic Sepsis W/Reflex 1.8 mmol/L (0.5-2.2)
[2025-08-10] MEDS: iohexol 350 mg/mL 500 mL Btl (per mL) IV (01:17)
--- NOTE | 2025-08-10 01:17 | ECG_ITS ---
[employer] Test Date: 2025-08-10 Pat Name: Madi Lowe Department: Room: Gender: Male Business Systems Advisor: : 1965 Requested By: Fox Kelly Order Number: [id number] Mason MD: Manjit Alexis M.D. Measurements Intervals [place] Rate: 70 P: -1 [place]: 195 QRS: -3 QRSD: 104 T: 62 QT: 434 QTc: 469 Interpretive Statements SINUS RHYTHM POSSIBLE RIGHT VENTRICULAR CONDUCTION DELAY [RSR (QR) IN V1/V2] Compared to ECG 08/05/2025 16:06:38 No significant changes Electronically Signed On 08-10-2025 07:39:33 SUBSYSTEMS ENGINEER by Manjit Alexis M.D. [email or web address]
[2025-08-10 01:29] LABS: Magnesium 1.7 mg/dL (1.7-2.3); NT Pro B Type Natriuretic Pept 158 pg/mL (0-125)
--- NOTE | 2025-08-10 02:19 | ED_ITS ---
HPI - Nausea/Vomiting/Diarrhea 2 General: Chief complaint: ER Hold Stated complaint: throwing up blood Time Seen by Provider: 08/09/25 23:59 History of Present Illness: Patient is a 59-year-old male with past medical history of depression, CAD status post PR, hypertension, diabetes who presents after an episode of hematemesis (vomiting blood) earlier this evening. He reports chronic anemia for several months, he saw his PCP today and was started on a iron transfusion, he was set to see GI outpatient for a possible colonoscopy for investigation of this bleeding. He states he had an esophageal ulcer about 20 years ago that required endoscopic intervention. He never drinks alcohol, does not take much ibuprofen, no new medications. He has been on a baby aspirin and Plavix since receiving cardiac stents earlier this year. He has no actual abdominal pain but notes slight abdominal bloating. He has no history of cirrhosis or other liver disease. Denies any recent fevers, chills, diaphoresis, decreased p.o., significant weight loss. Associated nausea: Yes Associated symtoms: Reports nausea Related Data Home Medications ?Medication ?Instructions ?Recorded ?Confirmed omeprazole magnesium 20 mg 20 mg PO BID 06/24/2508/09 tablet,delayed release (Prilosec OTC) Previous Rx's ?Medication ?Instructions ?Recorded aspirin 81 mg tablet,delayed 81 mg PO DAILY #90 tabs 0 11/05/24 release metformin 500 mg tablet 500 mg PO BIDWMEAL #60 tabs 06/24/25 amoxicillin 875 mg-potassium 1 tab PO BID #14 tabs 01/14 clavulanate 125 mg tablet atorvastatin 80 mg tablet (Lipitor) 80 mg PO DAILY #90 tabs 07/26/25 bupropion HCl 150 mg 24 hr tablet, See Rx Instructions .Route 07/26/25 extended release .COMPLEX #90 tabs clopidogrel 75 mg tablet 75 mg PO DAILY #90 tabs 01/14 isosorbide mononitrate 30 mg 30 mg PO DAILY #90 tabs 1 09/25/24 tablet,extended release 24 hr metoprolol tartrate 100 mg tablet 100 mg PO BID #180 t abs 07/26/25 nitroglycerin 0.4 mg sublingual 0.4 mg sublingual Q5M PRN chest 07/26/25 tablet pain #30 tabs amlodipine 2.5 mg tablet See Rx Instructions .Route 1 10/09/24 .COMPLEX PRN hypertension #30 tabs ferrous sulfate 325 mg (65 mg 325 mg PO BID #60 tabs 1 10/09/24 iron) tablet losartan 100 mg tablet 100 mg PO DAILY #90 tabs Allergies Allergy/AdvReac Type Severity Reaction Status Date / Time No Known Allergies Allergy Verified 08/09/25 23:24 Review of Systems 2 General: Reports: 10 or more systems reviewed and unremarkable except in HPI and below GI: Reports: abdominal pain, nausea and hematemesis PFSH ED 2 PFSH: Medical History Hypertension Chest pain Immunization counseling High risk medication use HTN (hypertension) Major depressive disorder Chronic steroid use Polymyalgia rheumatica Asthma Surgical History Hx of cataract surgery 08/26/23, 09/09/23 - Dr Smith History of umbilical hernia repair (01/26/20) H/O esophagogastroduodenoscopy Status post colonoscopy History of nasal surgery H/O knee surgery H/O hand surgery History of appendectomy Family History Father Lung disease Asthma Denies family history of Diabetes Clotting disorder Dementia Chronic kidney disease (CKD) Social History Smoking and tobacco/nicotine status: never used tobacco/nicotine Alcohol intake: never Substance/Drug Use: never Lives independently: Yes Household members: spouse Marital status: Current occupational status: employed Current occupational exposures/hazards: Yes Do you think of yourself as: Straight/Heterosexual Current gender identity: Male Physical Exam 2 Narrative: EXAM NARRATIVE: Patient overall well-appearing, vital stable on arrival, afebrile, no acute distress. Abdomen soft, nontender, nondistended, bowel sounds intact, no overlying skin changes, no CVA tenderness. Slight dried blood surrounding oropharynx, no active retching on exam, 2+ pulses throughout, good cap refill. Normal sinus rhythm with no leg swelling. Breathing comfortably on room air, saturating well, GCS 15. Course 2 Vital Signs: Vital signs: Vital Signs Temperature 98.0 F 08/10/25 04:25 Pulse Rate 67 08/10/25 04:25 Respiratory Rate 16 08/10/25 04:25 Blood Pressure 137/77 08/10/25 04:25 Pulse Oximetry 97 08/10/25 04:25 Oxygen Delivery Me thod Room Air 08/10/25 04:25 MDM - Nausea/Vomiting/Diarrhea Medical Decision Making -ddx: PUD, gastritis, esophageal varices, GAVE, diverticulosis, colorectal cancer, coagulopathy, acute blood loss anemia - Patient with 2 total episodes of hematemesis, was dark in nature and seemingly previously digested and stagnant blood, given Protonix and Zofran empirically. Hemoglobin of 7.6 with no continuance of vomiting, will not give emergent release but especially in setting of clinical stability. He has no history of cirrhosis, does not drink alcohol or use NSAIDs, the previous etiology of his esophageal ulcer 20 years ago is not known. CT angio of his abdomen pelvis with no active arterial bleeding seen. He did have some mild wall thickening of his esophagus and sigmoid colon, possibly blood products, also seemingly had hepatomegaly and splenomegaly, possibly MASH cirrhosis. Patient felt complete relief of his nausea, he had no further episodes of vomiting in the ED and remained hemodynamically stable. He was then admitted to medicine for GI consultation and upper and lower scopes to figure out the etiology of his bleeding and take intervention if necessary, patient updated and agreeable with plan of care, admitted in stable condition. Lab Data 08/09/25 22:52 08/09/25 22:52 Radiology Impressions Abdomen/Pelvis CTA 08/10/25 00:08 IMPRESSION: 1. Distal esophageal wall thickening may reflect esophagitis, consider correlation with endoscopy to evaluate for possible mass. 2. Proximal sigmoid colon demonstrates wall thickening with surrounding edema in an area of multiple diverticuli suggestive of a diverticulitis, please correlate clinically. 3. Spleen enlarged at 16 cm. 4. Left kidney cysts, negative for follow-up advised. 5. Gallbladder wall thickening with mild surrounding edema, consider correlation with ultrasound to assess for possible cholecystitis. 6. Hepatomegaly. 7. Moderate umbilical hernia containing somewhat edematous omentum, please correlate for reduction. 8. Cardiomegaly. 9. Coronary artery atherosclerotic calcifications. 10. Small to moderate hiatal hernia. 11. Left proximal common iliac artery atherosclerotic calcification with 50-60% luminal narrowing. Abdomen Ultrasound 08/10/25 02:41 IMPRESSION: 1. Cirrhotic liver. 2. Occluded main portal vein. Laboratory Results WBC 8.31 10^3/uL (3.29-11.43) 08/09/25 22:52 RBC 3.10 10^6/uL (3.85-5.65) L 08/09/25 22:52 Hgb 7.60 g/dL (11.27-16.99) L 08/09/25 22:52 Hct 25.3 % (37-53) L 08/09/25 22:52 MCV 81.6 fl (82-101) L 08/09/25 22:52 MCH 24.5 pg (27-33) L 08/09/25 22:52 MCHC 30.0 g/dL (30-55) 08/09/25 22:52 RDW 19.4 % (12.1-15.1) H 08/09/25 22:52 Plt Count 241 10^3/cmm (157-399) 08/09/25 22:52 MPV 10.4 fL (7.4-10.4) 08/09/25 22:52 Neut % (Auto) 61.8 % 08/09/25 22:52 Lymph % (Auto) 22.4 % 08/09/25 22:52 [place] % (Auto) 12.3 % 08/09/25 22:52 Eos % (Auto) 2.3 % 08/09/25 22:52 Baso % (Auto) 0.8 % 08/09/25 22:52 Neut # (Auto) 5.14 10^3/uL (1.8-7.7) 08/09/25 22:52 Lymph # (Auto) 1.9 10^3/uL (0.8-4.8) 08/09/25 22:52 [place] # (Auto) 1.0 10^3/uL (0.2-0.9) H 08/09/25 22:52 Eos # (Auto) 0.2 10^3/uL (0.0-0.8) 08/09/25 22:52 Baso # (Auto) 0.1 10^3/uL (0.0-0.1) 08/09/25 22:52 Nucleated RBC % (auto) 0 % 08/09/25 22:52 Nucleated RBCs # 0.0 /100WBC 08/09/25 22:52 PT 15.80 SECONDS (12.1-14.9) H 08/09/25 22:52 INR 1.18 (0.8-1.2) 08/09/25 22:52 APTT 30.9 SECONDS (23.9-36.7) 08/09/25 22:52 Sodium 133 mmol/L (136-145) L 08/09/25 22:52 Potassium 4.1 mmol/L (3.5-5.1) 08/09/25 22:52 Chloride 100 mmol/L (98-107) 08/09/25 22:52 Carbon Dioxide 21 mmol/L (22-29) L 08/09/25 22:52 Anion Gap 16.1 (5-19) 08/09/25 22:52 BUN 26 mg/dL (6-20) H 08/09/25 22:52 Creatinine 1.1 mg/dL (0.7-1.2) 08/09/25 22:52 GFR Calculation 69.0 mL/min (90-130) L 08/09/25 22:52 Glucose 134 mg/dL (65-115) H 08/09/25 22:52 Calculated Osmolality 283 mOsm/kg (285-295) L 08/09/25 22:52 Lactic Acid 1.8 mmol/L (0.5-2.2) 08/10/25 00:46 Calcium 8.8 mg/dL (8.5-10.5) 08/09/25 22:52 Phosphorus 3.1 mg/dL (2.5-4.5) 08/10/25 00:46 Magnesium 1.7 mg/dL (1.7-2.3) 08/10/25 00:46 Total Bilirubin 1.1 mg/dL (0.15-1.2) 08/09/25 22:52 AST 64 U/L (0-40) H 08/09/25 22:52 ALT 31 U/L (0-41) 08/09/25 22:52 Alkaline Phosphatase 73 U/L (40-130) 08/09/25 22:52 Troponin T Baseline 10 ng/L (0-15) 08/09/25 22:52 Troponin T 120 Minute 10.20 ng/L (0-15) 08/10/25 00:46 Delta Troponin T 0.20 ABS# (0-10) 08/10/25 00:46 C-React Prot High Sens 3.520 mg/dL (0.0-0.3) H 08/10/25 00:46 NT-Pro-B Natriuret Pep 158 pg/mL (0-125) H 08/10/25 00:46 Total Protein 7.2 g/dL (6.6-8.7) 08/09/25 22:52 Albumin 3.3 g/dL (3.5-5.2) L 08/09/25 22:52 Globulin 3.9 g/dL (1.3-4.6) 08/09/25 22:52 Lipase 51 U/L (13-60) 08/09/25 22:52 Blood Type O Positive 08/10/25 00:46 Rho(D) Type Rh positive 08/10/25 00:46 Antibody Screen Negative 08/10/25 00:46 Crossmatch See Detail 08/10/25 00:46 All radiology interpretation(s) finalized by discharge Discharge Plan Discharge Admit Provider: Arely Dejesus Condition: Stable Coding Level of Care Code ED Upholstery Parts Sorter for Salvador Obregon
--- NOTE | 2025-08-10 02:41 | USR_ITS ---
PROCEDURE INFORMATION: Exam: US Abdomen, Limited; Right Upper Quadrant Exam date and time: 08/10/2025 2:50 AM Age: 59 years old Clinical indication: Other: Follow-up cta = thickened gb wall; Profound anemia, hematemesis, being prepared for a blood transfusion. Normal tbili = 1.1, elevated ast = 64, normal alt = 31, normal alkphos = 73, normal lipase = 51; Additional info: Gb wall thick TECHNIQUE: Imaging protocol: Real time ultrasound of the abdomen with image documentation. Limited exam focused on the right upper quadrant. COMPARISON: CT angio abdomen pelvis [id number] 08/10/2025 12:52 AM FINDINGS: Liver: Heterogeneous liver with coarsened echotexture and nodular contour, consistent with cirrhosis. No discrete mass lesion seen. Patent common hepatic artery with normal direction of flow. No flow identified in the main portal vein. Reversed flow identified in the SMV. Gallbladder: There is thickening of the gallbladder wall measuring up to 0.5 cm, likely secondary to underdistention and liver disease. No pericholecystic fluid seen. No stones or sludge. Negative sonographic Murray's sign. Biliary ducts: Normal. No stones. No dilation. Pancreas: Visualized pancreas is unremarkable. Right kidney: Normal echogenicity. Mild cortical thinning noted. No mass. No hydronephrosis. US/US abdomen limited [id number] IMPRESSION: 1. Cirrhotic liver. 2. Occluded main portal vein.
--- NOTE | 2025-08-10 02:46 | PM.HP ---
Providers/Chief Complaint Primary Care Provider: Walker Sarabia MD Chief Complaint: throwing up blood History of Present Illness Madi Lowe is a 59 year old male Medications/Allergies Home Medications ?Medication ?Instructions ?Recorded ?Confirmed ?Last Taken ?Type aspirin 81 mg tablet,delayed 81 mg PO DAILY #90 tabs 11/05/24 08/09/25 06/23/25 Rx release metformin 500 mg tablet 500 mg PO BIDWMEAL #60 tabs 06/24/25 08/09/25 Unknown Rx omeprazole magnesium 20 mg 20 mg PO BID 06/24/25 08/09/25 06/23/25 09:00 History tablet,delayed release (Prilosec OTC) amoxicillin 875 mg-potassium 1 tab PO BID #14 tabs 07/26/25 07/26/25 Unknown Rx clavulanate 125 mg tablet atorvastatin 80 mg tablet (Lipitor) 80 mg PO DAILY #90 tabs 07/26/25 08/09/25 Unknown Rx bupropion HCl 150 mg 24 hr tablet, See Rx Instructions .Route 07/26/25 07/26/25 Unknown Rx extended release .COMPLEX #90 tabs clopidogrel 75 mg tablet 75 mg PO DAILY #90 tabs 07/26/25 08/09/25 Unknown Rx isosorbide mononitrate 30 mg 30 mg PO DAILY #90 tabs 07/26/25 08/09/25 Unknown Rx tablet,extended release 24 hr metoprolol tartrate 100 mg tablet 100 mg PO BID #180 tabs 07/26/25 07/26/25 Unknown Rx nitroglycerin 0.4 mg sublingual 0.4 mg sublingual Q5M PRN chest 07/26/25 08/09/25 Unknown Rx tablet pain #30 tabs amlodipine 2.5 mg tablet See Rx Instructions .Route 08/09/25 08/09/25 Unknown Rx .COMPLEX PRN hypertension #30 tabs ferrous sulfate 325 mg (65 mg 325 mg PO BID #60 tabs 08/09/25 08/09/25 Unknown Rx iron) tablet losartan 100 mg tablet 100 mg PO DAILY #90 tabs 08/09/25 08/09/25 Unknown Rx Allergies Allergy/AdvReac Type Severity Reaction Status Date / Time No Known Allergies Allergy Verified 08/09/25 23:24 PFSH Acute PFSH: Medical History Hypertension Chest pain Immunization counseling High risk medication use HTN (hypertension) Major depressive disorder Chronic steroid use Polymyalgia rheumatica Asthma Surgical History Hx of cataract surgery 08/26/23, 09/09/23 - Dr Smith History of umbilical hernia repair (01/26/20) H/O esophagogastroduodenoscopy Status post colonoscopy History of nasal surgery H/O knee surgery H/O hand surgery History of appendectomy Family History Father Lung disease Asthma Denies family history of Diabetes Clotting disorder Dementia Chronic kidney disease (CKD) Social History Smoking and tobacco/nicotine status: never used tobacco/nicotine Alcohol intake: never Substance/Drug Use: never Lives independently: Yes Household members: spouse Marital status: Current occupational status: employed Current occupational exposures/hazards: Yes Do you think of yourself as: Straight/Heterosexual Current gender identity: Male Vitals/I&O/Wt Last Vital Signs Temp 98.2 F 08/09/25 23:15 Pulse 73 08/10/25 02:40 Resp 16 08/09/25 23:15 BP 151/77 08/10/25 02:40 Pulse Ox 97 08/10/25 02:40 O2 Del Method Room Air 08/10/25 02:40 Weight last 48 hrs Weight 101.151 kg Data 08/09/25 22:52 08/09/25 22:52 A&P Assessment and plan 1. Anemia: START OF MEDICAL REPORT Arely Dejesus D.O. Board Certified Internal Medicine Chief Complaint: Coffee ground emesis History of Present Illness: The patient is a 59-year-old male who presents with chief complaint of coffee-ground emesis ?3 which first started approximately 8:30 PM on August 09, 2025. The patient takes aspirin and Plavix for history of coronary artery disease, status post IN, status post stent. He states he is been experiencing dyspnea on exertion and lightheadedness in the days leading up to his hospitalization. He denies melena and he denies hematochezia. He denies frequent NSAID use. He denies fever, rigors, abdominal pain, diarrhea, dizziness. Patient states that he had his last EGD and colonoscopy in 2019 which he states both of which were normal. He presents for further evaluation I have explained to the patient (if they are coherent, able to comprehend, and/or are communicative) and/or their family member(s), friend(s), guardian(s), and/or other individual(s) present on the patient?s behalf (if present) the patient?s current medical condition, the patient?s current plan of care, and I have answered all questions posed to me. Family History: Diabetes Physical Examination: General: -Alert. -No acute distress. -No dyspnea. -No tachypnea. ? Obese Head: -Atraumatic. -Normocephalic. Eyes: -Pupils equally round and reactive to light and accommodation. -Extraocular muscles intact. Neurological: -Cranial nerves II-XII intact. Neck: -No jugular venous distention. -No thyromegaly. -No cervical lymphadenopathy. Heart: -Regular rate. -Regular rhythm. -No murmurs. -No gallops. -No rubs. Lungs: -No wheeze. -No rhonchi. -No rales. Abdomen: -Normal bowel sounds in all four quadrants. -No rebound. -No guarding. ? Mildly positive Murray sign Extremities: -2/4 pulse in all four extremities. -No clubbing. -No cyanosis. -No edema. -No calf tenderness present bilaterally. -Negative Nahid?s sign bilaterally. Musculoskeletal: -5/5 bilateral upper extremity strength. -5/5 bilateral lower extremity strength. -Sensorium of bilateral upper extremities are equal and intact. -Sensorium of bilateral lower extremities are equal and intact. Additional Details / Additional Findings / Exceptions / Miscellaneous: Pertinent Laboratory Results / Pertinent Radiology Results / Pertinent Diagnostic Results / Pertinent Vital Signs: Blood pressure 120 466, heart rate 74, respiration 16, temperature 98.2?, 96% room air. Sodium 133, AST 64, hemoglobin 10.6, MCV 81.6 Social History: Caffeine: Coffee Tobacco: Never Alcohol: Denies Pets: Yes + Allergies: No known drug allergies Code Status: Full Admission Date: 2:43 AM on August 10, 2025 Discharge Date: History of Present Illness / Hospital Course Summary: The patient is a 59-year-old male who presents with chief complaint of coffee-ground emesis ?3 which first started approximately 8:30 PM on August 09, 2025. The patient takes aspirin and Plavix for history of coronary artery disease, status post IN, status post stent. He states he is been experiencing dyspnea on exertion and lightheadedness in the days leading up to his hospitalization. He denies melena and he denies hematochezia. He denies frequent NSAID use. He denies fever, rigors, abdominal pain, diarrhea, dizziness. Patient states that he had his last EGD and colonoscopy in 2019 which he states both of which were normal. He presents for further evaluation Surgical History: Appendectomy, cardiac stent placement, bilateral cataract surgery, umbilical herniorrhaphy, nasal surgery, right knee surgery, right hand digit 2 and 3 surgery Assessment / Plan + Medical History: Coffee ground emesis. General surgery or gastroenterology will need to be consultative on the morning of August 10, 2025 Acute on chronic anemia, microcytic. We will monitor hemoglobin level intermittently. PT/INR, PTT within normal limits. Transfuse 1 unit of packed red blood cells on 2024. Hyponatremia. We will monitor sodium level intermittently. IV normal saline 100 ML?s per hour Asthma Angina Depression with prior history of suicidal ideation Coronary artery disease, status post IN, status post stent Diverticulosis with questionable presence of diverticulitis. For now, solo treatment with Flagyl 500 mg IV every 6 hours Gallbladder wall thickening. Murray sign mildly positive. Check right upper quadrant ultrasound Diabetes GERD with current radiographic presents of distal esophageal wall thickening. Protonix 40 mg IV twice a day +2 grade 1 g by mouth 4 times a day. General surgery or gastroenterology will need to be consultative on the morning of August 10, 2025. Hyperlipidemia Hypertension Obesity. The patient will be counseled regarding lifestyle modification Polymyalgia rheumatica Obstructive sleep apnea History of vitamin D deficiency Peripheral vascular disease Hepatic steatosis DVT prophylaxis. Bilateral SCD Consultations: General surgery or gastroenterology will need to be consultative on the morning of August 10, 2025 Disposition: To be determined however I anticipate discharge in 48-72 hours + Discharge Diet: 2 g sodium, cardiac, ADA Discharge Activity: Discharge Condition: Discharge Medications: Time Spent with Patient: Greater than 30 minutes. Arely Dejesus D.O. Board Certified Internal Medicine END OF MEDICAL REPORT PDMP PDMP Reviewed: Not Reviewed Attestations Medical Necessity Statement*: To be determined however I anticipate discharge in 48-72 hours Coding Level of Care Code Acute Code for Chg Fwd Diagnoses Anemia D64.9
[2025-08-10 03:09] LABS: CRP High Sensitivity Cardiac 3.520 mg/dL (0.0-0.3)
--- OUTSIDE RECORDS SUMMARY | 2025-08-10 05:29 | XMS_ITS | Patient Health Record ---
Author Organization [facility] Address [address] [place] [address] Care Team Providers Care Toll Transmission Worker Name Role Phone Walker Sarabia MD Primary Care Provider Nick Marino Unavailable [phone] Allergies Allergen (clinical drug ingredient) Drug/Non Drug [...] W/U Status Risk Notes Problem Unstable angina (2050557) Unstable angina (I20.0) Active confirmed Problem Coronary artery aneurysm (36147338) Coronary artery aneurysm (I25.41) Active confirmed Problem Dilatation of aorta (29130520) Aortic ectasia, unspecified site (I77.819) Active confirmed Problem Acute severe exacerbation of severe persistent asthma (963540078) Severe persistent asthma with (acute) exacerbation (J45.51) Active confirmed Problem Shortness of breath (306695196) Shortness of breath (R06.02) Active confirmed Problem Localized edema (8023211) Localized edema (R60.0) Active confirmed Problem Long-term current use of inhaled steroid (407994303) long term acute care registered nurse (current) use of inhaled steroids (Z79.51) Active confirmed Problem Essential hypertension (90660022) Essential hypertension (I10) Active confirmed Problem Severe persistent allergic asthma (41361551223884402) Severe persistent allergic asthma (J45.50) Active confirmed Problem Thoracic aortic aneurysm without rupture (58813630) Thoracic aortic aneurysm without rupture (I71.2) Active confirmed Problem Bradycardia (35064918) Bradycardia (R00.1) Active confirmed Problem Obstructive sleep apnea syndrome (16560015) DAVID (obstructive sleep apnea) (G47.33) Active confirmed Problem Periodic limb movement disorder (727207713) Periodic limb movement (G47.61) Active confirmed Problem Hyperlipidaemia (41993212) Hyperlipemia (E78.5) Active confirmed Problem Obesity (126952364) Obesity (E66.9) Active conf irmed Problem Fatigue (86862112) Fatigue (R53.83) Active conf irmed Problem Exacerbation of asthma (732347583) Asthma exacerbation (J45.901) Active confirmed Problem Hypertension (54265190) Hypertension (I10) Active confirmed Problem Chest pain (88857638) Chest pain (R07.9) Active confirmed Problem Gastroesophageal reflux disease (413295090) GERD (gastroesophageal reflux disease) (K21.9) Active confirmed Problem Plain X-ray of chest abnormal (finding) (3386671135) Abnormal chest x-ray (R93.89) Active confirmed Problem Angina (790600507) Atheroscleros is of coronary artery with angina pectoris, unspecified vessel or lesion type, unspecified whether little traverse or transplanted heart (I25.119) Active confirmed Plan Of Treatment Pending Test Test Name Order Date zzzCT Cardiac Calcium Scoring Only-[id number] 05/01/2022 Medical (General) History Medical History History ICD Code Hypertension arthritis Hx covid 03/2021 pneumonia Anxiety Sleep apnea Surgical History Surgery Date(Month/Year) left knee scope right knee scope x 5 appendectomy nose reconstruction Hospitalization History Reason Date(Month/Year) [facility] /Pneumonia see above
--- OUTSIDE RECORDS SUMMARY | 2025-08-10 05:29 | XMS_ITS | Clinical Summary ---
Author Organization [facility] Address [address] [place] [address] Dr. 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 Gender Identity Not on file Sexual Orientation [...] (#1) 2025 Medical Devices Explanted Type Area Physicist Cryogenics Device Identifier Shelf Expiration Date Model / Serial / Lot Plate-H Ext 1.5mm Right 246.482 - [id number] Implanted:Qty: 1 on 05/05/2014 Explanted:Qty: 1 on 09/29/2014 by Walker Rollins MD Plate Right: Finger [employer]ATEC 246.482 / / Description:load#[id number] Screw St 1.5x10mm 200.810 - [id number] Implanted:Qty: 1 on 05/05/2014 Explanted:Qty: 2 on 09/29/2014 by Walker Rollins MD Screw Right: Finger [employer]ATEC 200.810 / / Description:load#[id number] Screw St 1.5x7mm 200.807 - [id number] Implanted:Qty: 3 on 05/05/2014 Explanted:Qty: 2 on 09/29/2014 by Walker Rollins MD Screw Right: Finger [employer]ATEC 200.807 / / Description:load #[id number] Screw St 1.5x8mm 200.808 - [id number] Implanted:Qty: 2 on 05/05/2014 Explanted:Qty: 2 on 09/29/2014 by Walker Rollins MD Screw Right: Finger [employer] 200.808 / / Description:load#[id number]-- 05/[address] 1.5x9mm 200.809 - [id number] Implanted:Qty: 2 on 05/05/2014 Explanted:Qty: 2 on 09/29/2014 by Walker Rollins MD Screw Right: Finger [employer] 200.809 / / Description:load#[id number] Care Teams Venetian Blind Maker Relationship Specialty Start Date End Date Rubina Dhillon MD [address] [id number] PCP - General Family Practice 07/09/13
--- OUTSIDE RECORDS SUMMARY | 2025-08-10 05:29 | XMS_ITS | Clinical Summary ---
Author Organization [facility] [place] Address [address] 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 Gender Identity Not on file Sexual Orientation [...] 35.9 C (96.6 F) 09/29/2014 10:00 AM ASSORTER LAUNDRY Respiratory Rate 16 09/29/2014 9:45 AM ASSORTER LAUNDRY Oxygen Saturation 95% 09/29/2014 10:00 AM ASSORTER LAUNDRY Inhaled Oxygen Concentration - - Weight 90.7 [...] (#1) 2025 Medical Devices Explanted Type Area Reconciling Clerk Device Identifier Shelf Expiration Date Model / Serial / Lot Plate-H Ext 1.5mm Right 246.482 - [id number] Implanted:Qty: 1 on 05/05/2014 at [facility] Explanted:Qty: 1 on 09/29/2014 by Walker Rollins MD at [facility] Plate Right: Finger [employer]ES [employer]ATEC 246.482 / / Description:load#[id number] Screw St 1.5x7mm 200.807 - [id number] Implanted:Qty: 3 on 05/05/2014 at [facility] Explanted:Qty: 2 on 09/29/2014 by Walker Rollins MD at [facility] Screw Right: Finger [employer]ATEC 200.807 / / Description:load #[id number] Screw St 1.5x8mm 200.808 - [id number] Implanted:Qty: 2 on 05/05/2014 at [facility] Explanted:Qty: 2 on 09/29/2014 by Walker Rollins MD at [facility] Screw Right: Finger [employer]AT[employer] 200.808 / / Description:load#[id number]-- 05/[address] 1.5x9mm 200.809 - [id number] Implanted:Qty: 2 on 05/05/2014 at [facility] Explanted:Qty: 2 on 09/29/2014 by Walker Rollins MD at [facility] Screw Right: Finger [employer]ATEC 200.809 / / Description:load#[id number] Screw St 1.5x10mm 200.810 - [id number] Implanted:Qty: 1 on 05/05/2014 at [facility] Explanted:Qty: 2 on 09/29/2014 by Walker Rollins MD at [facility] Screw Right: Finger [employer]ATEC 200.810 / / Description:load#[id number] Insurance [employer] Advance Directives For more information, please contact: [phone] * Full Code (Latest Code Status on [...] 11:26 AM 06/29/2013 8:10 AM Care Teams Physician Chief Of Pathology Relationship Specialty Start Date End Date Rubina Dhillon MD [address] [facility] [address] [place] [phone] PCP - General Family Practice 07/09/13
--- OUTSIDE RECORDS SUMMARY | 2025-08-10 05:30 | XMS_ITS | Encounter Summary ---
Author Organization [facility] Address [address] [place] [address] Care Team Providers Care Sailmaker Name Role Phone Rubina Dhillon MD Primary Care Provider Encounter Details Date Type Department Care Team (Late st Contact Info) Description 06/15/2014 Ancillary Orders [facility] Orthopedics - Orthopedic [facility] [address] [place] [address] Walker Rollins MD [address] [facility] [address] [place] [address] Finger pain, right (Primary Dx) Social History Tobacco Use Types Packs/Day Years Used Date Smoking Tobacco: Never Smokeless Tobacco: Never Alcohol Use Standard Drinks/Week Comments No 0 (1 standard drink = 0.6 oz pure alcohol) last time I drank was in February Sex and Gender Information Value Date Recorded Sex Assigned at Not on file Legal Sex Male 7:10 AM COMBINATION MAN Gender Identity Not on file Sexual Orientation [...] limb documented in this encounter Care Teams Sailmaker Relationship Specialty Start Date End Date Rubina Dhillon MD [address] [address] PCP - General Family Practice 07/09/13 documented as of this encounter
--- OUTSIDE RECORDS SUMMARY | 2025-08-10 05:30 | XMS_ITS | Encounter Summary ---
Author Organization [facility] Address [address] [place] [address] Care Team Providers Care Chief Digital Media Officer Name Role Phone Rubina Dhillon MD Primary Care Provider [phone] Encounter Details Date Type Department Care Team (Late st Contact Info) Description 10/23/2015 Ancillary Orders [facility] Emergency Medicine [address] [place] [phone] Finn Arreguin, DO NO ADDRESS ON FILE [...] on file Legal Sex Male 7:10 AM FORENSIC PSYCHOLOGIST Gender Identity Not on file Sexual Orientation [...] CHEST PA AND LATERAL (10/23/2015 9:22 PM FORENSIC PSYCHOLOGIST) Anatomical Region Laterality Modality Chest Computed Radiogr aphy 10/23/2015 9:22 PM FORENSIC PSYCHOLOGIST Impressions 10/24/2015 12:02 PM FORENSIC PSYCHOLOGIST IMPRESSION: 1. No acute cardiopulmonary disease. [email or web address] Uploaded from [employer] [id number] Narrative 10/24/2015 12:02 PM FORENSIC PSYCHOLOGIST Exam: XR CHEST PA AND LATERAL Date/Time [...] No acute cardiopulmonary disease. dmh/cjf Uploaded from [employer] [id number] Finn Arreguin DO DIAGNOSTIC IMAGING ORDERABLES F inal Result documented in this encounter Visit Diagnoses Diagnosis Acute bronchitis- Primary Acute bronchitis documented in this encounter Care Teams Chief Digital Media Officer Relationship Specialty Start Date End Date Rubina Dhillon MD [address] [address] PCP - General Family Practice 07/09/13 documented as of this encounter
--- OUTSIDE RECORDS SUMMARY | 2025-08-10 05:30 | XMS_ITS | Encounter Summary ---
Author Organization [facility] Address [address] [place] [address] Care Team Providers Care Senior Engineer Name Role Phone Rubina Dhillon MD Primary Care Provider [phone] Encounter Details Date Type Department Care Team (Late st Contact Info) Description 10/23/2015 Lab Requisition [facility] [place] [address] [place] [phone] Finn Arreguin, DO NO ADDRESS ON FILE Illness Social History Tobacco Use Types Packs/Day Years Used Date Smoking Tobacco: Never Smokeless Tobacco: Never Alcohol Use Standard Drinks/Week Comments No 0 (1 standard drink = 0.6 oz pure alcohol) last time I drank was in February Sex and Gender Information Value Date Recorded Sex Assigned at Not on file Legal Sex Male 7:10 AM CUSTOMER LIAISON Gender Identity Not on file Sexual Orientation [...] CBC WITH DIFFERENTIAL Routine 10/23/2015 8:23 PM CUSTOMER LIAISON Illness BASIC METABOLIC PANEL Routine 10/23/2015 8:23 PM CUSTOMER LIAISON Illness documented in this encounter Results * CBC WITH DIFFERENTIAL (10/23/2015 8:23 PM CUSTOMER LIAISON) WBC 4.2 4.2 - 9.1 K/uL 10/23/2015 10:37 PM CUSTOMER LIAISON [facility] RBC 4.93 4.63 - 6.08 M/uL 10/23/2015 10:37 PM CUSTOMER LIAISON [facility] [place] HEMOGLOBIN 15.1 13.7 - 17.5 g/dL 10/23/2015 10:37 PM CUSTOMER LIAISON [facility] [place] HEMATOCRIT 45.4 40.1 - 51.0 % 10/23/2015 10:37 PM CUSTOMER LIAISON [facility] [place] MCV 92.1 79.0 - 92.2 fL 10/23/2015 10:37 PM CUSTOMER LIAISON [facility] [place] MCH 30.6 25.7 - 32.2 pg 10/23/2015 10:37 PM CUSTOMER LIAISON [facility] [place] MCHC 33.3 32.3 - 36.5 g/dL 10/23/2015 10:37 PM CUSTOMER LIAISON [facility] [place] RDW 14.2 11.0 - 14.5 % 10/23/2015 10:37 PM CUSTOMER LIAISON [facility] [place] RDW-STDEV 46.4 36.9 - 56.9 fL 10/23/2015 10:37 PM CUSTOMER LIAISON [facility] [place] PLATELETS 258 130 - 400 K/uL 10/23/2015 10:37 PM CUSTOMER LIAISON [facility] [place] MPV 10.2 10.0 - 14.8 fL 10/23/2015 10:37 PM CUSTOMER LIAISON [facility] [place] [place] NEUTROPHILS 51 34 - 68 % 10/23/2015 10:37 PM CUSTOMER LIAISON [facility] [place] LYMPHOCYTES 30 22 - 53 % 10/23/2015 10:37 PM CUSTOMER LIAISON [facility] [place] MONOCYTES 12 5 - 12 % 10/23/2015 10:37 PM CUSTOMER LIAISON [facility] [place] [place] EOSINOPHILS 7 1 - 7 % 10/23/2015 10:37 PM CUSTOMER LIAISON [facility] [place] [place] BASOPHILS 1 0 - 1 % 10/23/2015 10:37 PM CUSTOMER LIAISON [facility] [place] NEUTROPHIL ABSOLUTE 2.14 1.78 - 5.38 K/uL 10/23/2015 10:37 PM CUSTOMER LIAISON [facility] [place] LYMPHOCYTE ABSOLUTE 1.26 1.20 - 3.40 K/uL 10/23/2015 10:37 PM CUSTOMER LIAISON [facility] [place] MONOCYTE ABSOLUTE 0.48 0.30 - 0.82 K/uL 10/23/2015 10:37 PM [facility] [place] EOSINOPHIL ABSOLUTE 0.28 0.04 - 0.54 K/uL 10/23/2015 10:37 PM [facility] BASOPHILS ABSOLUTE 0.02 0.01 - 0.08 K/uL 10/23/2015 10:37 PM [facility] IMMATURE GRANULOCYTES 0 % 10/23/2015 10:37 PM [facility] IMMATURE GRANULOCYTES ABSOLUTE 0.00 K/uL 10/23/2015 10:37 PM [facility] Blood Collection / Unknown 10/23/2015 8:23 PM CUSTOMER LIAISON 10/23/2015 8:23 PM CUSTOMER LIAISON us Finn Arreguin DO HEMATOLOGY ORDERABLES Final Res ult [facility] CLIA # [id number] [address] [place] [id number] * (ABNORMAL) BASIC METABOLIC PANEL (10/23/2015 8:23 PM CUSTOMER LIAISON) SODIUM 139 136 - 145 mmol/L 10/23/2015 10:54 PM [facility] POTASSIUM 4.5 3.5 - 5.1 mmol/L 10/23/2015 10:54 PM [facility] CHLORIDE 100 98 - 107 mmol/L 10/23/2015 10:54 PM [facility] CO2 25 22 - 29 mmol/L 10/23/2015 10:54 PM [facility] CALCIUM 9.6 8.6 - 10.0 mg/dL 10/23/2015 10:54 PM [facility] BUN 13 6 - 20 mg/dL 10/23/2015 10:54 PM [facility] CREATININE 1.51(H) 0.67 - 1.17 mg/dL 10/23/2015 10:54 PM [facility] GLUCOSE 115(H) 74 - 106 mg/dL 10/23/2015 10:54 PM [facility] [email or web address] [facility] GFR 50(L) >=60 mL/min/1.7 3 sq meter 10/23/2015 10:54 PM CUSTOMER LIAISON [facility] [employer] [facility] [employer] [facility] Comment: eGFR has not been validated [...] mL/min/1.7 3 sq meter 10/23/2015 10:54 PM CUSTOMER LIAISON [employer] [facility] 14 12 - 20 mmol/L 10/23/2015 10:54 PM CUSTOMER LIAISON [employer] Blood Collection / Unknown 10/23/2015 8:23 PM CUSTOMER LIAISON 10/23/2015 8:23 PM CUSTOMER LIAISON us Finn Arreguin DO CHEMISTRY ORDERABLES Final Resu lt [employer] [facility] CLIA # [id number] [address] [place] [id number] documented in this encounter Visit Diagnoses Diagnosis Illness Other unknown and unspecified cause of morbidity or mortality documented in this encounter Care Teams Senior Engineer Relationship Specialty Start Date End Date Rubina Dhillon MD [address] [address] PCP - General Family Practice 07/09/13 documented as of this encounter
[2025-08-10] MEDS: metroNIDAZOLE IV 500 MG/100 ML PREMIX 100 MG IV ×4 (05:56→21:20)
[2025-08-10 06:58] LABS: Hemoglobin 8.30 g/dL (11.27-16.99)
[2025-08-10 07:05] LABS: Alanine Aminotransferase 30 U/L (0-41); Albumin Level 3.3 g/dL (3.5-5.2); Alkaline Phosphatase 69 U/L (40-130); Anion Gap 13.1 (5-19); Aspartate Amino Transferase 57 U/L (0-40); Blood Urea Nitrogen 25 mg/dL (6-20); Calcium 8.7 mg/dL (8.5-10.5); Carbon Dioxide 23 mmol/L (22-29); Chloride 102 mmol/L (98-107); Globulin 3.8 g/dL (1.3-4.6); Glucose 126 mg/dL (65-115); Lipase 45 U/L (13-60); Osmolality Calculated 284 mOsm/kg (285-295); Potassium 4.1 mmol/L (3.5-5.1); Sodium 134 mmol/L (136-145); Total Protein 7.1 g/dL (6.6-8.7)
--- NOTE | 2025-08-10 08:42 | PM.CONSULT ---
Providers/Reason For Consult Consulting Physician/Specialty*: Dr. Bah general surgery Reason for Consult*: Rule out GI bleed Attending Physician: Agustin Mack MD Primary Care Provider: Walker Sarabia MD History of Present Illness History of Present Illness Madi Lowe is a 59 year old male whom surgery was consulted to rule out an upper GI bleed. No melena. No hematochezia. Coronary artery stents placed 6 months ago approximately. Unable to stop Plavix and aspirin for 7 days. Hemodynamically stable. Medications/Allergies Home Medications ?Medication ?Instructions ?Recorded ?Confirmed ?Last Taken ?Type aspirin 81 mg tablet,delayed 81 mg PO DAILY #90 tabs 11/05/24 08/09/25 06/23/25 Rx release metformin 500 mg tablet 500 mg PO BIDWMEAL #60 tabs 06/24/25 08/09/25 Unknown Rx omeprazole magnesium 20 mg 20 mg PO BID 06/24/25 08/09/25 06/23/25 09:00 History tablet,delayed release (Prilosec OTC) amoxicillin 875 mg-potassium 1 tab PO BID #14 tabs 07/26/25 07/26/25 Unknown Rx clavulanate 125 mg tablet atorvastatin 80 mg tablet (Lipitor) 80 mg PO DAILY #90 tabs 07/26/25 08/09/25 Unknown Rx bupropion HCl 150 mg 24 hr tablet, See Rx Instructions .Route 07/26/25 07/26/25 Unknown Rx extended release .COMPLEX #90 tabs clopidogrel 75 mg tablet 75 mg PO DAILY #90 tabs 07/26/25 08/09/25 Unknown Rx isosorbide mononitrate 30 mg 30 mg PO DAILY #90 tabs 07/26/25 08/09/25 Unknown Rx tablet,extended release 24 hr metoprolol tartrate 100 mg tablet 100 mg PO BID #180 tabs 07/26/25 07/26/25 Unknown Rx nitroglycerin 0.4 mg sublingual 0.4 mg sublingual Q5M PRN chest 07/26/25 08/09/25 Unknown Rx tablet pain #30 tabs amlodipine 2.5 mg tablet See Rx Instructions .Route 08/09/25 08/09/25 Unknown Rx .COMPLEX PRN hypertension #30 tabs ferrous sulfate 325 mg (65 mg 325 mg PO BID #60 tabs 08/09/25 08/09/25 Unknown Rx iron) tablet losartan 100 mg tablet 100 mg PO DAILY #90 tabs 08/09/25 08/09/25 Unknown Rx Allergies Allergy/AdvReac Type Severity Reaction Status Date / Time No Known Allergies Allergy Verified 08/09/25 23:24 Current Medications Generic Name Dose Route Start Last Admin Trade Name Jasperq PRN Reason Stop Dose Admin Sodium Chloride 1,000 mls @ 100 mls/hr 08/10/25 02:51 08/10/25 05:55 Sodium Chloride 0.9% IV 100 mls/hr .Q10H TRE Administration Metronidazole 500 mg in 100 mls @ 100 mls/hr 08/10/25 02:51 08/10/25 07:07 Flagyl Iv IV Infused Q6H TRE Infusion Protocol Pantoprazole Sodium 40 mg 08/10/25 02:51 08/10/25 05:55 Pantoprazole 40 Mg Sdv IVP 40 mg Q12H TRE Administration Sucralfate 1 gm 08/10/25 05:00 08/10/25 05:56 Sucralfate 1 Gm Tablet PO 1 gm QID TRE Administration PFSH Acute PFSH: Medical History Hypertension Chest pain Immunization counseling High risk medication use HTN (hypertension) Major depressive disorder Chronic steroid use Polymyalgia rheumatica Asthma Surgical History Hx of cataract surgery 08/26/23, 09/09/23 - Dr Smith History of umbilical hernia repair (01/26/20) H/O esophagogastroduodenoscopy Status post colonoscopy History of nasal surgery H/O knee surgery H/O hand surgery History of appendectomy Family History Father Lung disease Asthma Denies family history of Diabetes Clotting disorder Dementia Chronic kidney disease (CKD) Social History Smoking and tobacco/nicotine status: never used tobacco/nicotine Alcohol intake: never Substance/Drug Use: never Lives independently: Yes Household members: spouse Marital status: Current occupational status: employed Current occupational exposures/hazards: Yes Do you think of yourself as: Straight/Heterosexual Current gender identity: Male Vitals/I&O/Wt Last Vital Signs Temp 97.6 F 08/10/25 08:08 Pulse 69 08/10/25 08:08 Resp 18 08/10/25 08:08 BP 146/89 08/10/25 08:08 Pulse Ox 96 08/10/25 08:08 O2 Del Method Room Air 08/10/25 08:08 08/09/25 08/10/25 08/10/25 22:59 06:59 14:59 Intake Total 250 / 250 1100 / 1100 Output Total 200 / 200 Balance 50 / 50 1100 / 1100 Weight last 48 hrs Weight 215 lb 2.738 oz Weight 223 lb Physical Exam Narrative: Chest: Unlabored breathing room air. No lymphadenopathy. Heart: Regular rate and rhythm. Abdomen: Soft, nontender, nondistended. No masses or lymphadenopathy. Data 08/10/25 06:38 08/10/25 06:38 A&P Assessment and plan 1. Anemia: Plan: 59-year-old male whom surgery was consulted to rule out an upper GI bleed. Patient is on ALYSE for coronary artery stents placed approximately 6 months ago. Cannot stop Plavix for 7 days according to hospitalist who is in communication with cardiology. Will plan for diagnostic EGD to rule out a GI bleed. If he does not fact have a GI bleed we will plan for transfer for endoscopy and hemostasis by an experienced communication consultant since there is risk of worsening of bleed on Plavix. I have explained the risks and benefits to the patient. I have explained minimally invasive and nonprocedural options. Patient understands he may need a transfer for repeat endoscopy by communication consultant if bleeding is found. Patient has decided to proceed with diagnostic EGD. Patient understands that the risk include aspiration, iatrogenic perforation, worsening GI bleed, and still decides to proceed. PDMP PDMP Reviewed: Not Reviewed Coding Level of Care Code 52655 Diagnoses Anemia D64.9
--- NOTE | 2025-08-10 08:42 | PM.MISC ---
Miscellaneous Note Note: Hospitalist requesting diagnostic EGD to rule out UGIB. CAD with ALYSE 6 mo ago, cannot hold DAPT. Will plan for diagnostic EGD today and if bleeding found will plan for transfer to hemostasiss by experienced endoscopist to avoid worsening GIB with any intervention on plavix/asa. Full consult note to follow.
--- NOTE | 2025-08-10 09:50 | ANES.PREANE2 ---
Pre-Anesthetic Assessment Height/Weight: Height 5 ft 9 in Weight 215 lb 2.738 oz Temp Pulse Resp BP Pulse Ox O2 Del Method 97.6 F 69 18 146/89 96 Room Air 08/10/25 08:08 08/10/25 08:08 08/10/25 08:08 08/10/25 08:08 08/10/25 08:08 08/10/25 08:08 Preop Diagnosis: Hematic emesis Operation Date: 08/10/25 10:15 Proposed Procedures p EGD(Not Applicable) - Dago Bah MD Was Beta Rafa taken within 24 hours: Yes Was Clonidine taken within 24 hours: N/A Last intake: Intake Last Liquid Date 08/09/25 Last Liquid Time 23:59 Last Solid Date 08/09/25 Last Solid Time 08:00 Social No alcohol and No tobacco Exam alert, oriented x 3, clear to auscultation bilaterally and regular rate & rhythm Airway Submandibular: within normal limits Cervical ROM: within normal limits Mallampati: Class III Dentition: full Anesthetic Plan ASA status: 4 Anesthesia: Choice Other: Patient initially admitted today for anemia Hemoglobin 7.6 upon admission Last episode of emesis was last night History of CAD s/p [place] Hypertension on amlodipine losartan and metoprolol GERD on omeprazole Type 2 diabetes, no insulin Chronic Plavix, taken yesterday Patient has had 2 episodes of hematic emesis and was given Protonix and Zofran upon arrival Medications/Allergies Home Medications ?Medication ?Instructions ?Recorded ?Confirmed ?Last Taken ?Type aspirin 81 mg tablet,delayed 81 mg PO DAILY #90 tabs 11/05/24 08/09/25 06/23/25 Rx release metformin 500 mg tablet 500 mg PO BIDWMEAL #60 tabs 06/24/25 08/09/25 Unknown Rx omeprazole magnesium 20 mg 20 mg PO BID 06/24/25 08/09/25 06/23/25 09:00 History tablet,delayed release (Prilosec OTC) amoxicillin 875 mg-potassium 1 tab PO BID #14 tabs 07/26/25 07/26/25 Unknown Rx clavulanate 125 mg tablet atorvastatin 80 mg tablet (Lipitor) 80 mg PO DAILY #90 tabs 07/26/25 08/09/25 Unknown Rx bupropion HCl 150 mg 24 hr tablet, See Rx Instructions .Route 07/26/25 07/26/25 Unknown Rx extended release .COMPLEX #90 tabs clopidogrel 75 mg tablet 75 mg PO DAILY #90 tabs 07/26/25 08/09/25 Unknown Rx isosorbide mononitrate 30 mg 30 mg PO DAILY #90 tabs 07/26/25 08/09/25 Unknown Rx tablet,extended release 24 hr metoprolol tartrate 100 mg tablet 100 mg PO BID #180 tabs 07/26/25 07/26/25 Unknown Rx nitroglycerin 0.4 mg sublingual 0.4 mg sublingual Q5M PRN chest 07/26/25 08/09/25 Unknown Rx tablet pain #30 tabs amlodipine 2.5 mg tablet See Rx Instructions .Route 08/09/25 08/09/25 Unknown Rx .COMPLEX PRN hypertension #30 tabs ferrous sulfate 325 mg (65 mg 325 mg PO BID #60 tabs 08/09/25 08/09/25 Unknown Rx iron) tablet losartan 100 mg tablet 100 mg PO DAILY #90 tabs 08/09/25 08/09/25 Unknown Rx Allergies Allergy/AdvReac Type Severity Reaction Status Date / Time No Known Allergies Allergy Verified 08/09/25 23:24 Current Medications Generic Name Dose Route Start Last Admin Trade Name Freq PRN Reason Stop Dose Admin Aspirin 81 mg 08/10/25 08:15 08/10/25 09:47 Aspirin 81 Mg Ec Tablet PO 81 mg DAILY TRE Administration Sodium Chloride 1,000 mls @ 100 mls/hr 08/10/25 02:51 08/10/25 05:55 Sodium Chloride 0.9% IV 100 mls/hr .Q10H TRE Administration Metronidazole 500 mg in 100 mls @ 100 mls/hr 08/10/25 02:51 08/10/25 09:49 Flagyl Iv IV 0 mls/hr Q6H TRE Infusion Protocol Pantoprazole Sodium 40 mg 08/10/25 02:51 08/10/25 05:55 Pantoprazole 40 Mg Sdv IVP 40 mg Q12H TRE Administration Sucralfate 1 gm 08/10/25 05:00 08/10/25 05:56 Sucralfate 1 Gm Tablet PO 1 gm QID TRE Administration PFSH Anesthesia Medical History Hypertension Chest pain Immunization counseling High risk medication use HTN (hypertension) Major depressive disorder Chronic steroid use Polymyalgia rheumatica Asthma Surgical History Hx of cataract surgery 08/26/23, 09/09/23 - Dr Smith History of umbilical hernia repair (01/26/20) H/O esophagogastroduodenoscopy Status post colonoscopy History of nasal surgery H/O knee surgery H/O hand surgery History of appendectomy Family History Father Lung disease Asthma Denies family history of Diabetes Clotting disorder Dementia Chronic kidney disease (CKD) Social History Smoking and tobacco/nicotine status: never used tobacco/nicotine Alcohol intake: never Substance/Drug Use: never Lives independently: Yes Household members: spouse Marital status: Current occupational status: employed Current occupational exposures/hazards: Yes Do you think of yourself as: Straight/Heterosexual Current gender identity: Male Data Anesthesia 08/10/25 06:38 08/10/25 06:38 Short CBC 08/09/25 08/10/25 Range/Units 22:52 06:38 WBC 8.31 (3.29-11.43) 10^3/uL Hgb 7.60 L 8.30 L (11.27-16.99) g/dL Hct 25.3 L (37-53) % MCV 81.6 L (82-101) fl Plt Count 241 (157-399) 10^3/cmm Neut % (Auto) 61.8 % Neut # (Auto) 5.14 (1.8-7.7) 10^3/uL BMP 08/09/25 08/10/25 22:52 06:38 Sodium 133 L 134 L Potassium 4.1 4.1 Chloride 100 102 Carbon Dioxide 21 L 23 BUN 26 H 25 H Creatinine 1.1 1.0 Glucose 134 H 126 H Calcium 8.8 8.7 Cardiac Enzymes 08/09/25 08/10/25 Range/Units 22:52 00:46 Troponin T Baseline 10 (0-15) ng/L Troponin T 120 Minute 10.20 (0-15) ng/L Delta Troponin T 0.20 (0-10) ABS# NT-Pro-B Natriuret Pep 158 H (0-125) pg/mL Liver Function 08/09/25 08/10/25 Range/Units 22:52 06:38 Total Bilirubin 1.1 1.0 (0.15-1.2) mg/dL AST 64 H 57 H (0-40) U/L ALT 31 30 (0-41) U/L Alkaline Phosphatase 73 69 (40-130) U/L Albumin 3.3 L 3.3 L (3.5-5.2) g/dL Blood Bank 08/10/25 00:46 Blood Type O Positive Rho(D) Type Rh positive Antibody Screen Negative Coags 08/09/25 08/10/25 22:52 00:46 PT 15.80 H INR 1.18 APTT 30.9 C-React Prot High Sens 3.520 H Cardiac Studies: Echocardiogram 06/24/25 Echocardiogram Limited Views 11/03/24 Echocardiogram Ultrasound 01/15/21 Sestamibi Stress Test (Cardiology) 11/04/24
--- NOTE | 2025-08-10 10:06 | PC.PHAR ---
Pt has and old bottle of Aripiprazole 10 mg daily last fill 11/12/23-I did not add it to his current list.
--- NOTE | 2025-08-10 10:26 | ANE.PACU2 ---
Inpatient post-anesthesia follow up: Airway intact: Yes Vital signs: Temperature 98.4 F Pulse Rate 86 Respiratory Rate 18 Blood Pressure 153/75 Pulse Oximetry 93 Oxygen Delivery Me thod CPAP Oxygen Flow Rate 10 Fraction of Inspir ed Oxygen 21 Hydration adequate: Yes Nausea and vomiting: No Pain level: 1 Mental status: Baseline
[2025-08-10 12:27] LABS: Hemoglobin 7.70 g/dL (11.27-16.99)
--- NOTE | 2025-08-10 13:07 | P.PN_ITS ---
Subjective 2 Subjective: Patient was examined this morning - Currently alert oriented x 3, followin g all commands - Denies alcohol use - Denies chest pain - Denies any bloody black stools - We discussed his CT scan findings of h epatomegaly versus liver cirrhosis - Discussed that he will have to follow- up with GI for liver biopsy but the ultrasound shows radiographic evidence of liver cirrhosis but he will need to have further testing such as biopsy/elastase - Discussed the portal vein thrombosis t hat was seen - Discussed currently he is not a candid ate for anticoagulant therapy, given his acute anemia will decide based on clinical progress and shared decision making -Discussed risk of benefits, he voiced u nderstanding, all questions answered, shared decision making, agreed to proceed - Discussed plans on EGD - He is on aspirin and Plavix, for histo ry of cardiac stenting last in December 2024 - Denies any recurrent chest pain - I discussed the case with cardiology, Plavix can be held for at least today, but recommended to continue aspirin - Will resume Plavix tomorrow - But what that means is that he can cer tainly have an EGD but it limits the interventions that Madi can have the EGD such as biopsy, clipping, surgical intervention given that he is on Plavix and the risk of bleeding and morbidity and mortality - Discussed with him the risk and benefi ts of holding Plavix therapy, he voiced understanding, all questions answered, shared decision making, agreed to hold - Discussed risk of benefits of EGD, he voiced reasonable questions continue to proceed - No lightheadedness, dizziness Vitals/I&O/Wt Last Vital Signs Temp 97.5 F L 08/10/25 11:47 Pulse 70 08/10/25 11:47 Resp 18 08/10/25 11:47 BP 162/93 08/10/25 11:47 Pulse Ox 97 08/10/25 11:47 O2 Del Method Room Air 08/10/25 11:47 O2 Flow Rate 10 08/10/25 10:14 08/09/25 08/10/25 08/10/25 22:59 06:59 14:59 Intake Total 250 / 250 2386.667 / 2386.667 Output Total 200 / 200 Balance 50 / 50 2386.667 / 2386.667 Weight last 48 hrs Weight 97.6 kg Weight 101.151 kg Physical Exam 2 Const: COMMON NORMALS: no acute distress and patient oriented x3 Resp: COMMON NORMALS: normal respiratory effort, No retractions, No use of accessory muscles and clear to auscultation bilaterally AUSCULTATION: clear to auscultation bilaterally Cardio: COMMON NORMALS: regular rate, regular rhythm, S1 normal heart sound present and S2 normal heart sound present RATE: regular rate RHYTHM: r egular rhythm HEART SOUNDS: S1 normal heart sound present and S2 normal heart sound present GI: COMMON NORMALS: Normal to inspection, nondistended, normoactive bowel sounds present and non-tender Extremity: COMMON NORMALS: no pedal edema Neuro: COMMON NORMALS: patient oriented x3 Psych: COMMON NORMALS: mental status grossly normal Data 08/10/25 12:15 08/10/25 06:38 A&P Assessment and plan 1. Anemia: 2. Portal vein thrombosis: 3. Liver cirrhosis: 4. Diverticulitis: 5. Esophageal mass: Plan: Acute anemia - Will do iron studies - Status post 1 unit PRBC - Hemoglobin down to 7.7 will give another unit PRBC - IV fluids - Protonix, Carafate - General Surgery consulted for EGD - EGD showing at esophageal cardia, partially obstructing, medium sized, friable, fungating mass, malignant appearing, segment of bleeding from mass - Multiple small polyps found in the stomach - Will have to follow-up with general surgery/GI as outpatient - Plavix held for today resume aspirin - Hold blood thinners Diverticulitis CT/CT angio abdomen pelvis 01651 IMPRESSION: 1. Distal esophageal wall thickening may reflect esophagitis, consider correlation with endoscopy to evaluate for possible mass. 2. Proximal sigmoid colon demonstrates wall thickening with surrounding edema in an area of multiple diverticuli suggestive of a diverticulitis, please correlate clinically. 3. Spleen enlarged at 16 cm. 4. Left kidney cysts, negative for follow-up advised. 5. Gallbladder wall thickening with mild surrounding edema, consider correlation with ultrasound to assess for possible cholecystitis. 6. Hepatomegaly. 7. Moderate umbilical hernia containing somewhat edematous omentum, please correlate for reduction. 8. Cardiomegaly. 9. Coronary artery atherosclerotic calcifications. 10. Small to moderate hiatal hernia. 11. Left proximal common iliac artery atherosclerotic calcification with 50-60% luminal narrowing. Plan -Ciprofloxacin -Flagyl -Serial abdominal exams -Clear liquids Liver cirrhosis? Liver: Heterogeneous liver with coarsened echotexture and nodular contour, consistent with cirrhosis. No discrete mass lesion seen. Patent common hepatic artery with normal direction of flow. No flow identified in the main portal vein. Reversed flow identified in the [facility]. Gallbladder: There is thickening of the gallbladder wall measuring up to 0.5 cm, likely secondary to underdistention and liver disease. No pericholecystic fluid seen. No stones or sludge. Negative sonographic Murray's sign. Biliary ducts: Normal. No stones. No dilation. Pancreas: Visualized pancreas is unremarkable. Right kidney: Normal echogenicity. Mild cortical thinning noted. No mass. No hydronephrosis. Plan - Iron studies, AIDA, hep panel Portal vein thrombosis - Discussed risks and benefits of holding off on anticoagulant therapy for now, he voiced understanding, questions, agrees to proceed - Decision on pursuing anticoagulant therapy at discharge, based on clinical progress CAD -History of coronary angiogram 12/22/2024 -Conclusions 1. Indication: Staged PCI to large size and caliber high-grade 90% ostial diagonal branch. 60-year-old male past medical history significant for recent acute coronary syndrome ST elevation SC underwent difficult angioplasty requiring stent to distal RCA which was very torturous and calcified, it was treated successfully with drug-eluting stent in the distal segment however given the difficulty of the procedure patient achieved high normal radiation and contrast therefore we decided to bring patient back for staged PCI to ostial diagonal branch which we will try to manage with optimal medical management however patient continues to have chest pressure and recurrent chest pain. Today patient was brought in for this purpose.. 2. 1. Left main: Luminal irregularity without significant stenosis, #2 LAD has diffuse luminal irregularity without significant stenosis, diagonal branch has high-grade ostial 90% stenosis which is the culprit it is moderate size and caliber vessel. Left circumflex has luminal irregularity without significant stenosis. RCA is torturous large dominant vessel with ectasia, patent previously placed distal RCA stent.. Plan - Continue aspirin, statin -No recurrent chest pain - Plavix held today given EGD, distal esophageal mass, persistent anemia resume Plavix tomorrow - Discussed risks and benefits with patient, he voiced understanding, all questions answered, agreed to proceed - Monitor for chest pain Full code SCDs for DVT prophylaxis PDMP PDMP Reviewed: Not Reviewed Attestations 2 Medical Necessity Statement*: Patient requires hospitalization for acute anemia, diverticulitis, distal esophageal mass Diagnoses Anemia D64.9 Portal vein thrombosis I81 Liver cirrhosis K74.60 Diverticulitis K57.92 Esophageal mass K22.89
[2025-08-10 14:17] LABS: Ferritin 38 ng/mL (30-400); Iron 227 ug/dL (59-158)
[2025-08-10 14:19] LABS: Alcohol Level < 10 mg/dL (0-10)
[2025-08-10 14:26] LABS: Hepatitis A Antibody IgM Non-Reactive (Nonreactive); Hepatitis B Surface Antigen Non-Reactive (Nonreactive)
[2025-08-10 14:27] LABS: HIV 1 & 2 Antigen Non-Reactive (Non-Reactiv)
[2025-08-10 14:27] LABS: PCP Screen Urine Negative (Negative)
[2025-08-10] MEDS: phenol oral Spray 177 mL 3 SPRAY MUCOUS MEM (19:15)
[2025-08-10 19:28] LABS: Hematocrit 27.3 % (37-53); Hemoglobin 8.50 g/dL (11.27-16.99); Mean Corpuscular HGB Conc 31.1 g/dL (30-55); Mean Corpuscular Hemoglobin 26.0 pg (27-33); Mean Corpuscular Volume 83.5 fl (82-101); Nucleated Red Blood Cells % 0 %; Platelet Count 179 10^3/cmm (157-399); Red Blood Count 3.27 10^6/uL (3.85-5.65); White Blood Count 5.77 10^3/uL (3.29-11.43)
[2025-08-11] MEDS: pantoprazole 40 mg SDV IVP (02:40)
[2025-08-11 04:00] VITALS: BP 170/92; PULSE 90; RESP 17; TEMP 36.8; O2SAT 95
[2025-08-11] MEDS: metroNIDAZOLE IV 500 MG/100 ML PREMIX 100 MG IV ×2 (05:15→11:03)
[2025-08-11 05:18] LABS: Hematocrit 26.4 % (37-53); Hemoglobin 8.50 g/dL (11.27-16.99); Mean Corpuscular HGB Conc 32.2 g/dL (30-55); Mean Corpuscular Hemoglobin 26.2 pg (27-33); Mean Corpuscular Volume 81.2 fl (82-101); Nucleated Red Blood Cells % 0 %; Platelet Count 175 10^3/cmm (157-399); Red Blood Count 3.25 10^6/uL (3.85-5.65); White Blood Count 5.25 10^3/uL (3.29-11.43)
[2025-08-11 05:44] LABS: Alanine Aminotransferase 34 U/L (0-41); Albumin Level 3.1 g/dL (3.5-5.2); Alkaline Phosphatase 57 U/L (40-130); Anion Gap 14.9 (5-19); Aspartate Amino Transferase 81 U/L (0-40); Blood Urea Nitrogen 16 mg/dL (6-20); Calcium 8.5 mg/dL (8.5-10.5); Carbon Dioxide 21 mmol/L (22-29); Chloride 104 mmol/L (98-107); Globulin 3.7 g/dL (1.3-4.6); Glucose 108 mg/dL (65-115); Osmolality Calculated 284 mOsm/kg (285-295); Potassium 3.9 mmol/L (3.5-5.1); Sodium 136 mmol/L (136-145); Total Protein 6.8 g/dL (6.6-8.7)
[2025-08-11 07:30] VITALS: BP 153/75; PULSE 86; RESP 18; TEMP 36.9; O2SAT 93
[2025-08-11 11:31] VITALS: BP 165/89; PULSE 98; RESP 18; TEMP 36.7; O2SAT 91
--- NOTE | 2025-08-11 11:34 | PM.DCS ---
Discharge Providers Date of Admission: 08/10/25 02:15 Date of Discharge: August 11, 2025 Attending Provider at Admission: Arely Dejesus DO Attending Provider at Discharge: Agustin Mack MD Primary Care Provider: Walker Sarabia MD Diagnoses at Discharge Discharge Diagnosis 1. Anemia: 2. Portal vein thrombosis: 3. Liver cirrhosis: 4. Diverticulitis: 5. Esophageal mass: Reason for Visit Reason for Visit: throwing up blood Hospital Course Hospital Course This is a 59-year-old male, who presents to [facility] due to concerns for hematemesis, and anemia Patient was admitted to [facility] for acute anemia - Received 2 unit of PRBC - Hemoglobin has stabilized - No bloody or black stools, no recurrent hematemesis - Discharged with a close follow-up with primary care provider to recheck hemoglobin - Discharged on Protonix, Carafate - Discussed with patient the risks and benefits of resuming aspirin and Plavix on discharge, he voiced understanding, all questions answered, shared decision making, agreed to proceed EGD showing at esophageal cardia, partially obstructing, medium sized, friable, fungating mass, malignant appearing, segment of bleeding from mass -As per surgery no biopsies were taken as patient was on Plavix - Multiple small polyps found in the stomach - Spoke to [facility] GI team, they recommended for patient to follow-up with [facility] for an EGD -They advised me that they will call patient, to set up more urgent EGD -They were okay with doing biopsies on Plavix, and are okay with resuming -We also discussed patient's portal vein thrombosis -Given acute anemia, they recommended against anticoagulant therapy -Follow-up with [facility] -Patient was advised if he has any bloody or black stools or hematemesis go to the emergency room - Patient denies any dysphagia or odynophagia or globus sensation or vomiting up undigested food - Discussed partially obstructing mass - Discussed with him he should hydrate well, with all meals - Avoid big morsels of food, chew food thoroughly, avoid foods such as steak or hotdogs History of CAD -History of coronary angiogram 12/22/2024 -Conclusions 1. Indication: Staged PCI to large size and caliber high-grade 90% ostial diagonal branch. 60-year-old male past medical history significant for recent acute coronary syndrome ST elevation ID underwent difficult angioplasty requiring stent to distal RCA which was very torturous and calcified, it was treated successfully with drug-eluting stent in the distal segment however given the difficulty of the procedure patient achieved high normal radiation and contrast therefore we decided to bring patient back for staged PCI to ostial diagonal branch which we will try to manage with optimal medical management however patient continues to have chest pressure and recurrent chest pain. Today patient was brought in for this purpose.. 2. 1. Left main: Luminal irregularity without significant stenosis, #2 LAD has diffuse luminal irregularity without significant stenosis, diagonal branch has high-grade ostial 90% stenosis which is the culprit it is moderate size and caliber vessel. Left circumflex has luminal irregularity without significant stenosis. RCA is torturous large dominant vessel with ectasia, patent previously placed distal RCA stent.. - Discussed with patient's the risks and benefits of resuming antiplatelet therapy on discharge -Discussed with patient that certainly this is a difficult decision -On the 1 hand he has a high risk of in-stent thrombosis if his aspirin and Plavix were stopped, as it has been less than 1 year since his stent placement -But on the other hand he does have a risk of GI bleed, hematemesis, with his esophageal mass -Discussed risks and benefits of all options, he voiced understanding, all shared decision making, agrees to proceed with continuing the platelet therapy -Patient was advised if he has any recurrent hematemesis to immediately go to emergency room Portal vein thrombosis - Discussed risks and benefits of holding off on anticoagulant therapy for now, he voiced understanding, questions, agrees to proceed - As per discussion with [facility] recommended against anticoagulant therapy, follow-up with [facility] Liver cirrhosis? Liver: Heterogeneous liver with coarsened echotexture and nodular contour, consistent with cirrhosis. No discrete mass lesion seen. Patent common hepatic artery with normal direction of flow. No flow identified in the main portal vein. Reversed flow identified in the [facility]. Gallbladder: There is thickening of the gallbladder wall measuring up to 0.5 cm, likely secondary to underdistention and liver disease. No pericholecystic fluid seen. No stones or sludge. Negative sonographic Murray's sign. Biliary ducts: Normal. No stones. No dilation. Pancreas: Visualized pancreas is unremarkable. Right kidney: Normal echogenicity. Mild cortical thinning noted. No mass. No hydronephrosis. - Follow-up with [facility] GI Diverticulitis CT/CT angio abdomen pelvis 16041 IMPRESSION: 1. Distal esophageal wall thickening may reflect esophagitis, consider correlation with endoscopy to evaluate for possible mass. 2. Proximal sigmoid colon demonstrates wall thickening with surrounding edema in an area of multiple diverticuli suggestive of a diverticulitis, please correlate clinically. 3. Spleen enlarged at 16 cm. 4. Left kidney cysts, negative for follow-up advised. 5. Gallbladder wall thickening with mild surrounding edema, consider correlation with ultrasound to assess for possible cholecystitis. 6. Hepatomegaly. 7. Moderate umbilical hernia containing somewhat edematous omentum, please correlate for reduction. 8. Cardiomegaly. 9. Coronary artery atherosclerotic calcifications. 10. Small to moderate hiatal hernia. 11. Left proximal common iliac artery atherosclerotic calcification with 50-60% luminal narrowing. - Discharged on Cipro and Flagyl Physical Exam Const: COMMON NORMALS: no acute distress and patient oriented x3 Resp: COMMON NORMALS: normal respiratory effort, No retractions, No use of accessory muscles and clear to auscultation bilaterally AUSCULTATION: clear to auscultation bilaterally Cardio: COMMON NORMALS: regular rate, regular rhythm, S1 normal heart sound present and S2 normal heart sound present RATE: regular rate RHYTHM: regular rhythm HEART SOUNDS: S1 normal heart sound present and S2 normal heart sound present GI: COMMON NORMALS: Normal to inspection, nondistended, normoactive bowel sounds present and non-tender Neuro: COMMON NORMALS: patient oriented x3 Psych: COMMON NORMALS: mental status grossly normal Discharge Data Studies Completed and Pending Completed Studies During Hospitalization Category Date Time Status CT angio abdomen pelvis 67149 Stat Cat Scan 08/10/25 00:08 Completed US abdomen limited 46732 Stat Ultrasound 08/10/25 02:41 Completed Pending at discharge Category Date Time Status AIDA Profile Rheumatology Stat Lab 08/10/25 19:02 Received Complete Blood Count w/Auto AM LABS Lab 08/12/25 04:00 Ordered Complete Blood Count w/Auto AM LABS Lab 08/13/25 04:00 Ordered Comprehensive Metabolic Panel AM LABS Lab 08/12/25 04:00 Ordered Comprehensive Metabolic Panel AM LABS Lab 08/13/25 04:00 Ordered Radiology Impressions Abdomen/Pelvis CTA 08/10/25 00:08 IMPRESSION: 1. Distal esophageal wall thickening may reflect esophagitis, consider correlation with endoscopy to evaluate for possible mass. 2. Proximal sigmoid colon demonstrates wall thickening with surrounding edema in an area of multiple diverticuli suggestive of a diverticulitis, please correlate clinically. 3. Spleen enlarged at 16 cm. 4. Left kidney cysts, negative for follow-up advised. 5. Gallbladder wall thickening with mild surrounding edema, consider correlation with ultrasound to assess for possible cholecystitis. 6. Hepatomegaly. 7. Moderate umbilical hernia containing somewhat edematous omentum, please correlate for reduction. 8. Cardiomegaly. 9. Coronary artery atherosclerotic calcifications. 10. Small to moderate hiatal hernia. 11. Left proximal common iliac artery atherosclerotic calcification with 50-60% luminal narrowing. Abdomen Ultrasound 08/10/25 02:41 IMPRESSION: 1. Cirrhotic liver. 2. Occluded main portal vein. Laboratory Results WBC 5.25 10^3/uL (3.29-11.43) 08/11/25 04:46 RBC 3.25 10^6/uL (3.85-5.65) L 08/11/25 04:46 Hgb 8.50 g/dL (11.27-16.99) L 08/11/25 04:46 Hct 26.4 % (37-53) L 08/11/25 04:46 MCV 81.2 fl (82-101) L 08/11/25 04:46 MCH 26.2 pg (27-33) L 08/11/25 04:46 MCHC 32.2 g/dL (30-55) 08/11/25 04:46 RDW 18.3 % (12.1-15.1) H 08/11/25 04:46 Plt Count 175 10^3/cmm (157-399) 08/11/25 04:46 MPV 9.4 fL (7.4-10.4) 08/11/25 04:46 Neut % (Auto) 69.6 % 08/11/25 04:46 Lymph % (Auto) 14.7 % 08/11/25 04:46 [place] % (Auto) 12.4 % 08/11/25 04:46 Eos % (Auto) 2.1 % 08/11/25 04:46 Baso % (Auto) 0.8 % 08/11/25 04:46 Reticulocyte % (Auto) 2.3 % (0.5-2.0) H 08/10/25 12:15 Neut # (Auto) 3.66 10^3/uL (1.8-7.7) 08/11/25 04:46 Lymph # (Auto) 0.8 10^3/uL (0.8-4.8) 08/11/25 04:46 [place] # (Auto) 0.7 10^3/uL (0.2-0.9) 08/11/25 04:46 Eos # (Auto) 0.1 10^3/uL (0.0-0.8) 08/11/25 04:46 Baso # (Auto) 0.0 10^3/uL (0.0-0.1) 08/11/25 04:46 Nucleated RBC % (auto) 0 % 08/11/25 04:46 Nucleated RBCs # 0.0 /100WBC 08/11/25 04:46 PT 15.80 SECONDS (12.1-14.9) H 08/09/25 22:52 INR 1.18 (0.8-1.2) 08/09/25 22:52 APTT 30.9 SECONDS (23.9-36.7) 08/09/25 22:52 Sodium 136 mmol/L (136-145) 08/11/25 04:46 Potassium 3.9 mmol/L (3.5-5.1) 08/11/25 04:46 Chloride 104 mmol/L (98-107) 08/11/25 04:46 Carbon Dioxide 21 mmol/L (22-29) L 08/11/25 04:46 Anion Gap 14.9 (5-19) 08/11/25 04:46 BUN 16 mg/dL (6-20) 08/11/25 04:46 Creatinine 1.1 mg/dL (0.7-1.2) 08/11/25 04:46 GFR Calculation 69.0 mL/min (90-130) L 08/11/25 04:46 Glucose 108 mg/dL (65-115) 08/11/25 04:46 POC Glucose 133 mg/dL (70-110) H 08/11/25 10:38 Calculated Osmolality 284 mOsm/kg (285-295) L 08/11/25 04:46 Lactic Acid 1.8 mmol/L (0.5-2.2) 08/10/25 00:46 Calcium 8.5 mg/dL (8.5-10.5) 08/11/25 04:46 Phosphorus 3.1 mg/dL (2.5-4.5) 08/10/25 00:46 Magnesium 1.7 mg/dL (1.7-2.3) 08/10/25 00:46 Iron 227 ug/dL (59-158) H 08/10/25 06:38 Ferritin 38 ng/mL (30-400) 08/10/25 06:38 Total Bilirubin 1.0 mg/dL (0.15-1.2) 08/11/25 04:46 AST 81 U/L (0-40) H 08/11/25 04:46 ALT 34 U/L (0-41) 08/11/25 04:46 Alkaline Phosphatase 57 U/L (40-130) 08/11/25 04:46 Troponin T Baseline 10 ng/L (0-15) 08/09/25 22:52 Troponin T 120 Minute 10.20 ng/L (0-15) 08/10/25 00:46 Delta Troponin T 0.20 ABS# (0-10) 08/10/25 00:46 C-React Prot High Sens 3.520 mg/dL (0.0-0.3) H 08/10/25 00:46 NT-Pro-B Natriuret Pep 158 pg/mL (0-125) H 08/10/25 00:46 Total Protein 6.8 g/dL (6.6-8.7) 08/11/25 04:46 Albumin 3.1 g/dL (3.5-5.2) L 08/11/25 04:46 Globulin 3.7 g/dL (1.3-4.6) 08/11/25 04:46 Lipase 45 U/L (13-60) 08/10/25 06:38 Urine Opiates Screen Negative ng/mL (Negative) 08/10/25 14:05 Ur Barbiturates Screen Negative ng/mL (Negative) 08/10/25 14:05 Ur Phencyclidine Scrn Negative ng/mL (Negative) 08/10/25 14:05 Ur Amphetamines Screen Negative ng/mL (Negative) 08/10/25 14:05 U Benzodiazepines Scrn Negative ng/mL (Negative) 08/10/25 14:05 Urine Cocaine Screen Negative ng/mL (Negative) 08/10/25 14:05 U Marijuana (THC) Screen Negative ng/mL (Negative) 08/10/25 14:05 Ethyl Alcohol < 10 mg/dL (0-10) 08/10/25 06:38 Hepatitis A IgM Ab Non-reactive (Nonreactive) 08/10/25 06:38 Hep Bs Antigen Non-reactive (Nonreactive) 08/10/25 06:38 Hep B Core IgM Ab Non-reactive (Nonreactive) 08/10/25 06:38 Hepatitis C Antibody Non-reactive (Nonreactive) 08/10/25 06:38 HIV 1&2 Ab & HIV 1 Ag Non-reactive (Non-Reactiv) 08/10/25 06:38 HIV 1&2 Antibody Non-reactive (Non-Reactiv) 08/10/25 06:38 Blood Type O Positive 08/10/25 00:46 Rho(D) Type Rh positive 08/10/25 00:46 Antibody Screen Negative 08/10/25 00:46 Crossmatch See Detail 08/10/25 00:46 Vitals Last Vital Signs Temp 98.1 F 08/11/25 11:31 Pulse 98 08/11/25 11:31 Resp 18 08/11/25 11:31 BP 165/89 08/11/25 11:31 Pulse Ox 91 08/11/25 11:31 O2 Del Method Room Air 08/11/25 11:31 O2 Flow Rate 10 08/10/25 10:14 FiO2 21 08/10/25 20:24 Discharge Plan Discharge Patient Disposition: Home Condition: Stable Prescriptions: New sucralfate 1 gram Tablet 1 g PO BID 30 Days Qty: 60 0RF metronidazole 500 mg tablet 500 mg PO Q8H 7 Days Qty: 21 0RF pantoprazole [Protonix] 40 mg tablet,delayed release (DR/EC) 40 mg PO BID 30 Days Qty: 60 0RF ciprofloxacin HCl 500 mg tablet 500 mg PO BID 7 Days Qty: 14 0RF Continued metoprolol tartrate 100 mg tablet 100 mg PO BID Qty: 180 3RF Rx Instructions: TAKE 1 TABLET BY MOUTH TWICE A DAY FOR HIGH BLOOD PRESSURE bupropion HCl 150 mg tablet extended release 24 hr See Rx Instructions .ROUTE .COMPLEX Qty: 90 2RF Dose Instruction: TAKE 1 TABLET BY MOUTH EVERY DAY IN THE MORNING Rx Instructions: TAKE 1 TABLET BY MOUTH EVERY DAY IN THE MORNING amlodipine 2.5 mg tablet See Rx Instructions .ROUTE .COMPLEX PRN (Reason: hypertension) Qty: 30 2RF Dose Instruction: TAKE 1 TABLET BY MOUTH DAILY Rx Instructions: TAKE 1 TABLET BY MOUTH DAILY PRN SBP>150 or DBP>100 ferrous sulfate 325 mg (65 mg iron) tablet 325 mg PO BID Qty: 60 3RF losartan 100 mg tablet 100 mg PO DAILY Qty: 90 3RF clopidogrel 75 mg tablet 75 mg PO DAILY Qty: 90 4RF isosorbide mononitrate 30 mg tablet extended release 24 hr 30 mg PO DAILY Qty: 90 3RF atorvastatin [Lipitor] 80 mg tablet 80 mg PO DAILY Qty: 90 3RF nitroglycerin 0.4 mg tablet, sublingual 0.4 mg sublingual Q5M PRN (Reason: chest pain) Qty: 30 2RF Rx Instructions: do not exceed 3 doses per episode aspirin 81 mg Tablet,Delayed Release (Dr/Ec) 81 mg PO DAILY Qty: 90 0RF cyanocobalamin (vitamin B-12) [Vitamin B-12] 1,000 mcg Tablet 1,000 mcg PO DAILY metformin 500 mg tablet 500 mg PO BIDWMEAL Qty: 60 0RF Discontinued amoxicillin-pot clavulanate 875-125 mg tablet 1 tab PO BID Qty: 14 0RF omeprazole magnesium [Prilosec OTC] 20 mg Tablet,Delayed Release (Dr/Ec) 20 mg PO BID Discharge Order = DC NOW: Discharge Order (Routine); Ordered 08/11/25 Ordered By: Agustin Mack Referrals: Walker Sarabia MD [Primary Care Provider, Family Practice] Discharge Diet: Cardiac Discharge Activity: Resume usual activity Patient Instructions: Ciprofloxacin (By mouth), Sucralfate (By mouth), Metronidazole (By mouth) (Flagyl, Flagyl 375, Flagyl ER, Likmez), Pantoprazole (By mouth), Upper Endoscopy (DC), GI Post Discharge Instructions w/ Anesthesia, Opioid Safety, Patient Portal & Hannah Instructions Activity Restrictions/Additional Instructions: -please have primary care recheck hemoglobin on friday - Please avoid big morsels of food - Please chew food thoroughly, avoid foods such as hot dogs or steak -Hydrate well - If any difficulty swallowing go to the emergency room Discharge Attestations Time Spent in Discharge Care*: greater than 30 min Status at Discharge: Cognitive status at discharge: cognitively intact, Behavioral status at discharge: cooperative, Quality Metrics Clinical Quality Measures [ No reported AMI, CVA or VTE this stay] Coding Level of Care Code 41524 Total time (in minutes) for Discharge: 45 Diagnoses Anemia D64.9 Portal vein thrombosis I81 Liver cirrhosis K74.60 Diverticulitis K57.92 Esophageal mass K22.89
[2025-08-11 12:26] VITALS: BP 165/89; PULSE 98; RESP 18; TEMP 36.7; O2SAT 91
[2025-08-12 13:49] LABS: COMPLEMENT COMPONENT C3C 161 mg/dL (82-185); COMPLEMENT COMPONENT C4C 20 mg/dL (15-53)
[2025-08-12 14:09] LABS: CENTROMERE B ANTIBODY <1.0 NEG AI (<1.0 NEG); JO-1 ANTIBODY <1.0 NEG AI (<1.0 NEG); RNP ANTIBODY <1.0 NEG AI (<1.0 NEG); SCL-70 ANTIBODY <1.0 NEG AI (<1.0 NEG); SS-B <1.0 NEG AI (<1.0 NEG)
[2025-08-12 16:39] LABS: COMPLEMENT, TOTAL (CH50) 60 U/mL (31-60)
[2025-08-15 12:24] LABS: THYROID PEROXIDASE ANTIBODIES 1 IU/mL (<9)
== END 2025-08-11 12:27 | disposition home or self-care (01) | DRG 391 ==
LOC: ER 08-10 02:19 → ER IP 08-10 03:13 → MEDSURG 08-10 07:14
PROVIDERS: Physician Assistant; Student in an Organized Health Care Education/Training Program; Admitting Provider Internal Medicine; Emergency Provider Student in an Organized Health Care Education/Training Program; PCP Family Medicine; Visit Provider Family Medicine
PROC: 0DJ08ZZ Inspection of Upper Intestinal Tract, Via Natural or Artificial Opening Endoscopic (ICD-10-PCS; principal; 2025-08-10 10:15)
DX: K22.2 Esophageal obstruction (principal); I81 Portal vein thrombosis; K92.0 Hematemesis; K57.92 Diverticulitis of intestine, part unspecified, without perforation or abscess without bleeding; E79.82 Hereditary xanthinuria; E87.1 Hypo-osmolality and hyponatremia; K74.60 Unspecified cirrhosis of liver; D64.9 Anemia, unspecified; I25.10 Atherosclerotic heart disease of native coronary artery without angina pectoris; F32.A Depression, unspecified; I25.2 Old myocardial infarction; E11.51 Type 2 diabetes mellitus with diabetic peripheral angiopathy without gangrene; K31.7 Polyp of stomach and duodenum; K76.0 Fatty (change of) liver, not elsewhere classified; G47.33 Obstructive sleep apnea (adult) (pediatric); E66.9 Obesity, unspecified; E78.5 Hyperlipidemia, unspecified; K21.9 Gastro-esophageal reflux disease without esophagitis; J45.909 Unspecified asthma, uncomplicated; M35.3 Polymyalgia rheumatica; I10 Essential (primary) hypertension; Z68.31 Body mass index [BMI] 31.0-31.9, adult; Z79.02 Long term (current) use of antithrombotics/antiplatelets; Z79.84 Long term (current) use of oral hypoglycemic drugs; Z95.5 Presence of coronary angioplasty implant and graft
CPT/HCPCS: 36415; 36416; 36430; 43235; 74174; 76705; 80053; 80074; 80306; 80307; 82728; 82962; 83540; 83605; 83690; 83735; 83880; 84100; 84484; 85018; 85025; 85045; 85610; 85730; 86141; 86160; 86162; 86235; 86255; 86376; 86850; 86900; 86920; 87806; 93005; 94660; 96372; 96374; 96375; 99285; J0744; J1815; J2405; J2470; J2704; J3490; J7030; J9999; P9016; P9040